=== PATIENT | male | born 1995 | race Caucasian/White ===

== ENCOUNTER 2021-05-18 12:48 | Inpatient (IN) | payer MEDICARE, MEDICAID, SELFPAY ==
--- NOTE | 2021-05-18 13:35 | ECG_ITS ---
Test Reason : Med clearance Blood Pressure : / mmHG Vent. Rate : 081 BPM Atrial Rate : 081 BPM P-R Int : 152 ms QRS Dur : 104 ms QT Int : 368 ms P-R-T Axes : 043 048 034 degrees QTc Int : 427 ms Artifact in tracing Normal sinus rhythm Otherwise normal ECG No significant changes when compared with the previous EKG of 23 september 2019 Referred By: Chacha Jo Electronically Signed By:DAMION THOMSON
[2021-05-18 13:41] VITALS: BP 122/76; PULSE 91; RESP 18; TEMP 36.8; O2SAT 99; BMI 43.2
--- NOTE | 2021-05-18 14:18 | PC.NURSE ---
mo states this is phone number [phone]. mother states client stopped taking medications used to be on sounds like long acting risperdal injectable, also mother states not eating well/right
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
[2021-05-18 18:21] LABS: Appearance Urine CLEAR; Glucose Urine UA NEG (NEG); Leukocyte Esterase Urine NEG (NEG); Nitrite Urine NEG (NEG); Specific Gravity - Urine <= 1.005 (1.005-1.025); Urine Blood NEG (NEG); Urine Ketones NEG (NEG); Urine Protein NEG (NEG-TRACE)
[2021-05-18 18:29] LABS: COVID-19 Test Negative (Negative); Color Urine YELLOW
[2021-05-18 18:47] LABS: Amphetamine Screen Urine Not Detected (Not Detect); Barbiturates, Urine Not Detected (Not Detect); Benzodiazepines Screen Urine Not Detected (Not Detect); Cannabinoid Screen Urine POSITIVE (Not Detect); Cocaine Screen Urine Not Detected (Not Detect); Fentanyl, urine Not Detected (Not Detect); Opiate Screen Urine Not Detected (Not Detect); Phencyclidine Screen Urine Not Detected (Not Detect)
[2021-05-18 18:54] LABS: MANUAL DIFF FLAG NO
[2021-05-18 19:00] LABS: Basophils Percent Auto 0.2 % (0-2); Eosinophils Percent Auto 0.2 % (0-4); Hematocrit 40.1 % (42.0-52.0); Hemoglobin 13.7 g/dl (14.0-18.0); Imm Gran Abs Auto 0.03 X10*3/uL (0.00-0.03); Imm Gran Pct Auto 0.3 % (0.0-0.4); Lymphocytes Absolute Auto 1.7 X10*3/uL (1.2-4.9); Lymphocytes Percent Auto 15.2 % (20-40); Mean Corpuscular HGB Conc 34.2 g/dl (31.0-36.0); Mean Corpuscular Hemoglobin 30.2 pg (27.0-33.0); Mean Corpuscular Volume 88.3 fL (80.0-98.0); Mean Platelet Volume 9.6 fL (9.4-12.4); Monocytes Absolute Auto 0.6 X10*3/uL (0.1-1.2); Monocytes Percent Auto 5.2 % (2-11); Neutrophils Absolute Auto 8.6 x10*3/uL (2.0-8.3); Neutrophils Percent Auto 78.9 % (45-73); Platelet Count 308 X10*3/uL (160-400); Red Blood Count 4.54 X10*6/uL (4.60-5.80); Red Cell Distribution Width 12.8 % (11.0-16.0); White Blood Count 10.9 X10*3/uL (4.8-10.8)
[2021-05-18 19:08] LABS: Ethanol < 10 mg/dL
[2021-05-18 19:12] LABS: Alanine Aminotransferase 29 U/L (0-40); Albumin Level 4.4 g/dL (3.5-5.0); Alkaline Phosphatase 66 U/L (39-117); Anion Gap 12 (12-20); Aspartate Amino Transferase 21 U/L (5-37); Bilirubin Total 0.3 mg/dL (0.0-1.0); Blood Urea Nitrogen 9 mg/dL (9-16); Calcium 9.9 mg/dL (8.4-10.2); Carbon Dioxide 26 mmol/L (22-29); Chloride 107 mmol/L (96-108); Creatinine Clr Calc Pharmacy 178.6; Estimated Glomerular Filt Rate > 60; Glucose Random 127 mg/dL (60-115); Lipase 51 U/L (8-78); Magnesium 1.8 mg/dL (1.6-2.6); Potassium 3.9 mmol/L (3.3-5.1); Sodium 141 mmol/L (135-145); Total Protein 7.7 g/dL (6.5-8.0)
[2021-05-19 00:46] VITALS: BP 126/78; PULSE 78; RESP 16; TEMP 36.9; O2SAT 99
--- NOTE | 2021-05-19 06:12 | PC.NURSE ---
Patient slept through the night, no distress observed/reported, behavior appropriate and cooperative, med rec completed/pending providers approval, patient was assessed by [facility] in the community, disposition is section 12 inpatient Bed Search, VSS, will continue to monitor.
--- NOTE | 2021-05-19 07:20 | PC.NURSE ---
pt given breakfast tray, sitting at bedside on table eating meal. no distress noted.
--- NOTE | 2021-05-19 09:13 | PC.NURSE ---
ambulatory to bathroom, cooperative and pleasant.
--- NOTE | 2021-05-19 13:13 | PC.NURSE ---
NURSE TO NURSE GIVEN FOR M3 ADMISSION
[2021-05-19 14:04] VITALS: BP 135/62; PULSE 82; RESP 16; TEMP 36.8; O2SAT 97
[2021-05-19 16:18] VITALS: BP 129/65; PULSE 80
[2021-05-19 16:23] VITALS: BP 129/65; PULSE 80
[2021-05-19] MEDS: Propranolol HCL 10 MG TABLET PO ×2 (16:23→20:07)
--- NOTE | 2021-05-19 17:19 | PC.ADMIT ---
Patient is a 26 year old male who was admitted from the POD. Patient arrived to the unit at 13:27 via a wheelchair. Patient is pleasant upon approach and cooperative with admission. Patient presented secondary to ceasing to take risperidone. Patient reports he was hearing voices telling me things. They would tell me anything from murder to doing bad things . Patient declined to elaborate further on it. Patient denies SI/HI/VH. Patient states right now I am not hearing the voices, but when they do say things to me I do not like it . Patient is alert and oriented x3, person, place, and situation. Patient reported that the year was 2017. Patient was educated on the date being May 19, 2021. Upon admission Vital signs were BP:135/62, HR:82, RR:16, o2:97%, T:98.3, and patient denies pain. Patient denies any current medical problems. Patients affect is flat and appears anxious. During admission assessments patient is observed to be lying down in bed. Patient would pull covers over his face for periods of a time after responding to a question. Patient has delay of about 45 seconds to 1 minute for responses. Patient reports not being a smoker of tobacco products, but reports daily use of marijuana. Pt reports last use of marijuana was 2 days ago before coming to the ER. Patient reports feeling safe on the unit, and verbalized an ability to seek staff if feeling like wanting to harm self. Patient denies AH at this time.
--- NOTE | 2021-05-19 18:54 | P.HPPS_ITS ---
HPI Chief Complaint: Psychosis Diagnostics Vital Signs (24Hr): Vital Signs - 24 hr 05/19/21 00:46 05/19/21 14:04 05/19/21 16:18 Temperature 98.4 F 98.3 F Pulse Rate 78 82 80 Respiratory Rate 16 16 Blood Pressure 126/78 135/62 129/65 Pulse Oximetry 99 97 05/19/21 16:23 Temperature Pulse Rate 80 Respiratory Rate Blood Pressure 129/65 Pulse Oximetry BMI result Body Mass Index 43.2 Labs Results: 05/18/21 18:51 05/18/21 18:51 Labs: Laboratory Results - last 48 hr 05/18/21 05/18/21 05/18/21 18:02 18:02 18:02 WBC RBC Hgb Hct MCV MCH MCHC RDW Plt Count MPV Immature Gran % (Auto) Neut % (Auto) Lymph % (Auto) [place] % (Auto) Eos % (Auto) Baso % (Auto) Lymph # (Auto) [place] # (Auto) Eos # (Auto) Baso # (Auto) Abs Immat Gran (auto) Absolute Neuts (auto) Absolute Nucleated RBC Nucleated RBC % (auto) Sodium Potassium Chloride Carbon Dioxide Anion Gap BUN Creatinine Estim Creat Clear Calc Estimated GFR Random Glucose Calcium Magnesium Total Bilirubin AST ALT Alkaline Phosphatase Total Protein Albumin Lipase Urine Color YELLOW Urine Appearance CLEAR Urine pH 7.0 Ur Specific [place] <= 1.005 Urine Protein NEG Urine Glucose (UA) NEG Urine Ketones NEG Urine Blood NEG Urine Nitrite NEG Ur Leukocyte Esterase NEG Urine Opiates Screen Not Detected Urine Fentanyl Screen Not Detected Ur Barbiturates Screen Not Detected Ur Phencyclidine Scrn Not Detected Ur Amphetamines Screen Not Detected U Benzodiazepines Scrn Not Detected Urine Cocaine Screen Not Detected U Marijuana (THC) Screen POSITIVE H Ethyl Alcohol COVID-19 (RUBÉN) Negative COVID-19 Clin Com See Note 05/18/21 05/18/21 05/18/21 18:51 18:51 18:51 WBC 10.9 H RBC 4.54 L Hgb 13.7 L Hct 40.1 L MCV 88.3 MCH 30.2 MCHC 34.2 RDW 12.8 Plt Count 308 MPV 9.6 Immature Gran % (Auto) 0.3 Neut % (Auto) 78.9 H Lymph % (Auto) 15.2 L Greene % (Auto) 5.2 Eos % (Auto) 0.2 Baso % (Auto) 0.2 Lymph # (Auto) 1.7 Greene # (Auto) 0.6 Eos # (Auto) 0.0 Baso # (Auto) 0.0 Abs Immat Gran (auto) 0.03 Absolute Neuts (auto) 8.6 H Absolute Nucleated RBC 0.000 Nucleated RBC % (auto) 0.0 Sodium 141 Potassium 3.9 Chloride 107 Carbon Dioxide 26 Anion Gap 12 BUN 9 Creatinine 0.84 Estim Creat Clear Calc 178.6 Estimated GFR > 60 Random Glucose 127 H Calcium 9.9 Magnesium 1.8 Total Bilirubin 0.3 AST 21 ALT 29 Alkaline Phosphatase 66 Total Protein 7.7 Albumin 4.4 Lipase 51 Urine Color Urine Appearance Urine pH Ur Specific [place] Urine Protein Urine Glucose (UA) Urine Ketones Urine Blood Urine Nitrite Ur Leukocyte Esterase Urine Opiates Screen Urine Fentanyl Screen Ur Barbiturates Screen Ur Phencyclidine Scrn Ur Amphetamines Screen U Benzodiazepines Scrn Urine Cocaine Screen U Marijuana (THC) Screen Ethyl Alcohol < 10 COVID-19 (RUBÉN) COVID-19 Clin Com Meds/Allergies Meds Home Medications Acetaminophen (Acetaminophen 325 Mg Tablet) 650 mg PO Q6H PRN PRN Reason: Headache/Pain Mild Scale (1-3) Al Hydroxide/Mg Hydroxide (Magnesium Hydrox/Alum Hydrox 30 Ml Oral.Susp) 30 ml PO Q6H PRN PRN Reason: Heartburn/Nausea Hydroxyzine HCl (Hydroxyzine Hcl 25 Mg Tablet) 25 mg PO BEDTIME PRN PRN Reason: Anxiety Magnesium Hydroxide (Milk Of Magnesia 30 Ml Oral.Susp) 30 ml PO DAILY PRN PRN Reason: Constipation Nicotine Polacrilex (Nicotine Polacrilex 2 Mg Gum) 4 mg BUCCAL Q2H PRN PRN Reason: Nicotine Cravings Propranolol HCl (Propranolol Hcl 10 Mg Tablet) 10 mg PO TID KYLE; Protocol Last Admin: 05/19/21 16:23 Dose: 10 mg Documented by: Risperidone (Risperidone 3 Mg Tablet) 3 mg PO BEDTIME KYLE Trazodone HCl (Trazodone Hcl 50 Mg Tablet) 50 mg PO BEDTIME PRN PRN Reason: Insomnia Allergies Allergies Allergy/AdvReac Type Severity Reaction Status Date / Time Penicillins [PENICILLINS] Allergy Unknown RASH Verified 05/19/21 07:39
[2021-05-19 19:48] VITALS: BP 132/68; PULSE 85; RESP 16; TEMP 36.8; O2SAT 98
[2021-05-19 20:07] VITALS: BP 132/68; PULSE 85
[2021-05-19] MEDS: risperiDONE 3 MG TABLET PO (20:07)
[2021-05-19] MEDS: traZODone HCL 50 MG TABLET PO (20:16)
[2021-05-20 08:35] VITALS: BP 128/73; PULSE 97; RESP 18; TEMP 36.8; O2SAT 97
[2021-05-20 08:38] VITALS: BP 128/73; PULSE 97
[2021-05-20] MEDS: Propranolol HCL 10 MG TABLET PO ×3 (08:38→20:35)
--- NOTE | 2021-05-20 12:33 | P.HPPS_ITS ---
HPI Date of Service: 05/20/21 Chief Complaint: Psychosis HPI Narrative: per pt, he used to take the risperdal consta shot but has not taken it in a while due patrick an adverse reaction to the injection; he describes bloody pustules having formed on his skin at various sites. he has since been prescribed PO risperidone but is not generally compliant with it. he is willing to try another WONG. he recently had a recrudescence of his symptoms of psychosis, such as thought insertion, CAH to perform inappropriate touching. he was brought to [facility] by his family members, with whom he lives. on interview with MD, pt supports the history as written above and is open to MD discussing his case with his outpt prescriber to determine next steps. Past Psychiatric History: h/o schizophrenia. multiple hospitalizations. seen at [facility]. h/o medication non-compliance. no documented h/o SA/SIB/HIB. Medical Evaluation Reviewed: Yes [facility] Family History: reportedly there is a FH of mental illness and ASHANTI. Social History: born in [place] and moved to at 6 yo. one of three kids. sibs spent some time in foster care when he was 4 yo and then reunited a few years later. mother is and remarried. pt lives with his father. single, never , no children. receives [employer] income. Substance History: daily use of cannabis. denies use of other substances. Trauma History: alluded to childhood H/O trauma, has not specified. Diagnostics Vital Signs (24Hr): Vital Signs - 24 hr 05/19/21 14:04 05/19/21 16:18 05/19/21 16:23 Temperature 98.3 F Pulse Rate 82 80 80 Respiratory Rate 16 Blood Pressure 135/62 129/65 129/65 Pulse Oximetry 97 05/19/21 19:48 05/19/21 20:07 05/20/21 08:35 Temperature 98.2 F 98.2 F Pulse Rate 85 85 97 Respiratory Rate 16 18 Blood Pressure 132/68 132/68 128/73 Pulse Oximetry 98 97 05/20/21 08:38 Temperature Pulse Rate 97 Respiratory Rate Blood Pressure 128/73 Pulse Oximetry BMI result Body Mass Index 43.2 Labs Results: 05/18/21 18:51 05/18/21 18:51 Labs: Laboratory Results - last 48 hr 05/18/21 05/18/21 05/18/21 18:02 18:02 18:02 WBC RBC Hgb Hct MCV MCH MCHC RDW Plt Count MPV Immature Gran % (Auto) Neut % (Auto) Lymph % (Auto) [place] % (Auto) Eos % (Auto) Baso % (Auto) Lymph # (Auto) [place] # (Auto) Eos # (Auto) Baso # (Auto) Abs Immat Gran (auto) Absolute Neuts (auto) Absolute Nucleated RBC Nucleated RBC % (auto) Sodium Potassium Chloride Carbon Dioxide Anion Gap BUN Creatinine Estim Creat Clear Calc Estimated GFR Random Glucose Calcium Magnesium Total Bilirubin AST ALT Alkaline Phosphatase Total Protein Albumin Lipase Urine Color YELLOW Urine Appearance CLEAR Urine pH 7.0 Ur Specific [place] <= 1.005 Urine Protein NEG Urine Glucose (UA) NEG Urine Ketones NEG Urine Blood NEG Urine Nitrite NEG Ur Leukocyte Esterase NEG Urine Opiates Screen Not Detected Urine Fentanyl Screen Not Detected Ur Barbiturates Screen Not Detected Ur Phencyclidine Scrn Not Detected Ur Amphetamines Screen Not Detected U Benzodiazepines Scrn Not Detected Urine Cocaine Screen Not Detected U Marijuana (THC) Screen POSITIVE H Ethyl Alcohol COVID-19 (RUBÉN) Negative COVID-19 Clin Com See Note 05/18/21 05/18/21 05/18/21 18:51 18:51 18:51 WBC 10.9 H RBC 4.54 L Hgb 13.7 L Hct 40.1 L MCV 88.3 MCH 30.2 MCHC 34.2 RDW 12.8 Plt Count 308 MPV 9.6 Immature Gran % (Auto) 0.3 Neut % (Auto) 78.9 H Lymph % (Auto) 15.2 L Emery % (Auto) 5.2 Eos % (Auto) 0.2 Baso % (Auto) 0.2 Lymph # (Auto) 1.7 [place]y # (Auto) 0.6 Eos # (Auto) 0.0 Baso # (Auto) 0.0 Abs Immat Gran (auto) 0.03 Absolute Neuts (auto) 8.6 H Absolute Nucleated RBC 0.000 Nucleated RBC % (auto) 0.0 Sodium 141 Potassium 3.9 Chloride 107 Carbon Dioxide 26 Anion Gap 12 BUN 9 Creatinine 0.84 Estim Creat Clear Calc 178.6 Estimated GFR > 60 Random Glucose 127 H Calcium 9.9 Magnesium 1.8 Total Bilirubin 0.3 AST 21 ALT 29 Alkaline Phosphatase 66 Total Protein 7.7 Albumin 4.4 Lipase 51 Urine Color Urine Appearance Urine pH Ur Specific [place] Urine Protein Urine Glucose (UA) Urine Ketones Urine Blood Urine Nitrite Ur Leukocyte Esterase Urine Opiates Screen Urine Fentanyl Screen Ur Barbiturates Screen Ur Phencyclidine Scrn Ur Amphetamines Screen U Benzodiazepines Scrn Urine Cocaine Screen U Marijuana (THC) Screen Ethyl Alcohol < 10 COVID-19 (RUBÉN) COVID-19 Clin Com Meds/Allergies Meds Home Medications Acetaminophen (Acetaminophen 325 Mg Tablet) 650 mg PO Q6H PRN PRN Reason: Headache/Pain Mild Scale (1-3) Al Hydroxide/Mg Hydroxide (Magnesium Hydrox/Alum Hydrox 30 Ml Oral.Susp) 30 ml PO Q6H PRN PRN Reason: Heartburn/Nausea Hydroxyzine HCl (Hydroxyzine Hcl 25 Mg Tablet) 25 mg PO BEDTIME PRN PRN Reason: Anxiety Magnesium Hydroxide (Milk Of Magnesia 30 Ml Oral.Susp) 30 ml PO DAILY PRN PRN Reason: Constipation Nicotine Polacrilex (Nicotine Polacrilex 2 Mg Gum) 4 mg BUCCAL Q2H PRN PRN Reason: Nicotine Cravings Propranolol HCl (Propranolol Hcl 10 Mg Tablet) 10 mg PO TID KYLE; Protocol Last Admin: 05/20/21 08:38 Dose: 10 mg Documented by: Risperidone (Risperidone 3 Mg Tablet) 3 mg PO BEDTIME KYLE Last Admin: 05/19/21 20:07 Dose: 3 mg Documented by: Trazodone HCl (Trazodone Hcl 50 Mg Tablet) 50 mg PO BEDTIME PRN PRN Reason: Insomnia Last Admin: 05/19/21 20:16 Dose: 50 mg Documented by: Allergies Allergies Allergy/AdvReac Type Severity Reaction Status Date / Time Penicillins [PENICILLINS] Allergy Unknown RASH Verified 05/19/21 07:39 Mental Status Exam Mental Status Exam Narrative: pt found resting in bed, easily rousable. appropriately dressed and groomed in street clothes. no PMA/PMR. cooperative. speech soft and decreased in amount. nml rate, constricted prosody. thoughts linear and logical. affect blunted. mood good. denies SI/HI/AVH. Assessment & Plan Assessment & Plan (1) Schizophrenia: Status: Acute Code(s): F20.9 - Schizophrenia, unspecified Assessment and Plan: continue PO risperidone for now. collateral from [facility] prescriber, determine new WONG and initiate. discharge to home once stabilized. Reason for continued inpatient stay Substantial Risk for: harm to others, inability to function and rapid decompensation
[2021-05-20 15:42] VITALS: BP 138/68; PULSE 84
[2021-05-20 20:35] VITALS: BP 121/74; PULSE 92; RESP 18; TEMP 36.4; O2SAT 99
[2021-05-20] MEDS: traZODone HCL 50 MG TABLET PO ×2 (20:35→23:06)
[2021-05-20] MEDS: risperiDONE 3 MG TABLET PO (20:35)
[2021-05-20] MEDS: hydrOXYzine HCL 25 MG TABLET PO (23:06)
[2021-05-21 06:00] VITALS: BP 118/57; PULSE 104; RESP 16; TEMP 37.1; O2SAT 97
[2021-05-21 09:59] VITALS: BP 118/57; PULSE 104
[2021-05-21] MEDS: Propranolol HCL 10 MG TABLET PO ×2 (09:59→14:35)
[2021-05-21 14:35] VITALS: BP 111/55; PULSE 81
--- NOTE | 2021-05-21 14:49 | HO.PSYCHPN ---
Subjective Subjective Date of Service: 05/21/21 Reason For Visit: Psychosis Interim History: pt resting in bed, easily rousable. denies any changes from yesterday. MD reports no new information, awaiting return call from prescriber. per staff, not attending groups, eating well. anx/dep 5/10. sleeping well. Mental Status Exam Mental Status Exam Narrative: pt found resting in bed, easily rousable. appropriately dressed and groomed in street clothes. no PMA/PMR. cooperative. speech soft and decreased in amount. nml rate, constricted prosody. thoughts linear and logical. affect blunted. mood euthymic, denies SI/HI/AVH. Diagnostics Vital Signs (24Hr): Vital Signs - 24 hr 05/20/21 15:42 05/20/21 20:35 05/21/21 06:00 Temperature 97.6 F 98.7 F Pulse Rate 84 92 104 H Respiratory Rate 18 16 Blood Pressure 138/68 121/74 118/57 L Pulse Oximetry 99 97 05/21/21 09:59 05/21/21 14:35 Temperature Pulse Rate 104 H 81 Respiratory Rate Blood Pressure 118/57 L 111/55 L Pulse Oximetry BMI result Body Mass Index 43.2 Labs Results: 05/18/21 18:51 05/18/21 18:51 Medications Medications Current Medications Acetaminophen (Acetaminophen 325 Mg Tablet) 650 mg PO Q6H PRN PRN Reason: Headache/Pain Mild Scale (1-3) Al Hydroxide/Mg Hydroxide (Magnesium Hydrox/Alum Hydrox 30 Ml Oral.Susp) 30 ml PO Q6H PRN PRN Reason: Heartburn/Nausea Hydroxyzine HCl (Hydroxyzine Hcl 25 Mg Tablet) 25 mg PO BEDTIME PRN PRN Reason: Anxiety Last Admin: 05/20/21 23:06 Dose: 25 mg Documented by: Magnesium Hydroxide (Milk Of Magnesia 30 Ml Oral.Susp) 30 ml PO DAILY PRN PRN Reason: Constipation Nicotine Polacrilex (Nicotine Polacrilex 2 Mg Gum) 4 mg BUCCAL Q2H PRN PRN Reason: Nicotine Cravings Propranolol HCl (Propranolol Hcl 10 Mg Tablet) 10 mg PO TID KYLE; Protocol Last Admin: 05/21/21 14:35 Dose: 10 mg Documented by: Risperidone (Risperidone 3 Mg Tablet) 3 mg PO BEDTIME KYLE Last Admin: 05/20/21 20:35 Dose: 3 mg Documented by: Trazodone HCl (Trazodone Hcl 50 Mg Tablet) 50 mg PO BEDTIME PRN PRN Reason: Insomnia Last Admin: 05/20/21 23:06 Dose: 50 mg Documented by: Allergies Allergies Allergy/AdvReac Type Severity Reaction Status Date / Time Penicillins [PENICILLINS] Allergy Unknown RASH Verified 05/19/21 07:39 Assessment & Plan Assessment & Plan (1) Schizophrenia: Status: Acute Code(s): F20.9 - Schizophrenia, unspecified Assessment and Plan: continue PO risperidone for now. collateral from [facility] prescriber, determine new WONG and initiate. calls placed to [facility] prescriber, awaiting call back. discharge to home once stabilized. I spent minutes with the patient and/or on the patient floor today, greater than?50% of which was spent counseling/coordinating care. Reason for contiued inpatient stay Substantial Risk for: harm to others
[2021-05-21 21:33] VITALS: BP 114/53; PULSE 82
[2021-05-21 21:35] VITALS: BP 114/53; PULSE 82; RESP 16; TEMP 37.1; O2SAT 96
[2021-05-21] MEDS: risperiDONE 3 MG TABLET PO (21:39)
[2021-05-21] MEDS: traZODone HCL 50 MG TABLET PO (21:39)
[2021-05-22 09:07] VITALS: BP 141/77; PULSE 118; RESP 17; TEMP 36.7; O2SAT 97
[2021-05-22 09:09] VITALS: BP 141/77; PULSE 118
[2021-05-22] MEDS: Propranolol HCL 10 MG TABLET PO ×3 (09:09→21:13)
--- NOTE | 2021-05-22 12:44 | HO.PSYCHPN ---
Subjective Subjective Date of Service: 05/22/21 Reason For Visit: Psychosis Interim History: pt seen in his room, found resting in bed. appeared to have been awake. reports that AH come and go daily. 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 will DC risperidone 3 mg at bedtime and start paliperidone 6 mg tonight. no other complaints or requests. per staff, spent most of yesterday in bed. denied AH early in day but then endorsed to staff later in day. pleasant. Mental Status Exam Mental Status Exam Narrative: pt found resting in bed, easily rousable. appropriately dressed and groomed in street clothes. no PMA/PMR. cooperative. speech soft and decreased in amount. nml rate, constricted prosody. thoughts linear and logical. affect blunted. mood euthymic, endorses daily AH. Diagnostics Vital Signs (24Hr): Vital Signs - 24 hr 05/21/21 14:35 05/21/21 21:33 05/21/21 21:35 Temperature 98.8 F Pulse Rate 81 82 82 Respiratory Rate 16 Blood Pressure 111/55 L 114/53 L 114/53 L Pulse Oximetry 96 05/22/21 09:07 05/22/21 09:09 Temperature 98.0 F Pulse Rate 118 H 118 H Respiratory Rate 17 Blood Pressure 141/77 H 141/77 H Pulse Oximetry 97 BMI result Body Mass Index 43.2 Labs Results: 05/18/21 18:51 05/18/21 18:51 Medications Medications Current Medications Acetaminophen (Acetaminophen 325 Mg Tablet) 650 mg PO Q6H PRN PRN Reason: Headache/Pain Mild Scale (1-3) Al Hydroxide/Mg Hydroxide (Magnesium Hydrox/Alum Hydrox 30 Ml Oral.Susp) 30 ml PO Q6H PRN PRN Reason: Heartburn/Nausea Hydroxyzine HCl (Hydroxyzine Hcl 25 Mg Tablet) 25 mg PO BEDTIME PRN PRN Reason: Anxiety Last Admin: 05/20/21 23:06 Dose: 25 mg Documented by: Magnesium Hydroxide (Milk Of Magnesia 30 Ml Oral.Susp) 30 ml PO DAILY PRN PRN Reason: Constipation Nicotine Polacrilex (Nicotine Polacrilex 2 Mg Gum) 4 mg BUCCAL Q2H PRN PRN Reason: Nicotine Cravings Propranolol HCl (Propranolol Hcl 10 Mg Tablet) 10 mg PO TID KYLE; Protocol Last Admin: 05/22/21 09:09 Dose: 10 mg Documented by: Risperidone (Risperidone 3 Mg Tablet) 3 mg PO BEDTIME KYLE Last Admin: 05/21/21 21:39 Dose: 3 mg Documented by: Trazodone HCl (Trazodone Hcl 50 Mg Tablet) 50 mg PO BEDTIME PRN PRN Reason: Insomnia Last Admin: 05/21/21 21:39 Dose: 50 mg Documented by: Allergies Allergies Allergy/AdvReac Type Severity Reaction Status Date / Time Penicillins [PENICILLINS] Allergy Unknown RASH Verified 05/19/21 07:39 Assessment & Plan Assessment & Plan (1) Schizophrenia: Status: Acute Code(s): F20.9 - Schizophrenia, unspecified Assessment and Plan: DCed PO risperidone 05/22, started invega 6 mg at HS same day. plan to start WONG 05/26. still trying to obtain collateral from [facility] prescriber, determine new WONG and initiate. calls placed to [facility] prescriber, awaiting call back. discharge to home once stabilized. I spent minutes with the patient and/or on the patient floor today, greater than?50% of which was spent counseling/coordinating care. Reason for contiued inpatient stay Substantial Risk for: harm to others and rapid decompensation
[2021-05-22 15:51] VITALS: BP 129/72; PULSE 107
[2021-05-22 18:00] VITALS: BP 130/71; PULSE 84; RESP 14; TEMP 36.3; O2SAT 98
[2021-05-22 21:13] VITALS: BP 130/71; PULSE 84
[2021-05-22] MEDS: Paliperidone ER 6 MG TAB.ER.24 PO (21:13)
[2021-05-23] MEDS: traZODone HCL 50 MG TABLET PO (00:53)
--- NOTE | 2021-05-23 09:00 | P.PNPSI_ITS ---
Subjective Subjective Date of Service: 05/23/21 Reason For Visit: Psychosis Subjective Notes: Conditional Voluntary Interim History: Patient was seen and discussed in rounds today. He continues to be somewhat isolative, guarded. He did get started on Invega with the hope of switching him to a long-acting injectable. He denies any side effects. Eating and sleeping adequately. No SI/HI. Intermittent auditory hallucinations. No complaints. No changes were made today and the current regimen is maintained Medication Compliance: Yes Side effects from medications: No Review of Systems Review of Systems Constitutional : No Fever, No Chills ENT/Mouth : No Ear Pain, No Nasal Congestion, No sore throat Eyes: No Eye Pain, No Swelling, No Redness Cardiovascular : No Chest Pain, No SOB Respiratory : No Cough, No Sputum, No Dyspnea Gastrointestinal : No ingestions, No Nausea, No Vomiting, No Diarrhea, No Hematochezia, No Melena Genitourinary : No Dysuria, No Urinary Frequency, No Hematuria Musculoskeletal : No Myalgias Skin : No Skin Lesions, No rash Neuro : No Weakness, No Numbness, No Paresthesias, No Dizziness, No Headache Psych : + Anxiety, + Depression, + delusions with intrusive thoughts, No SI, No thoughts of self injury, No HI, No AVH, Heme/Lymph: No Lymphadenopathy Endocrine : No Polyuria, No Polydipsia Yes all other systems are reviewed and are negative Diagnostics Vital Signs (24Hr): Vital Signs - 24 hr 05/22/21 09:07 05/22/21 09:09 05/22/21 15:51 Temperature 98.0 F Pulse Rate 118 H 118 H 107 H Respiratory Rate 17 Blood Pressure 141/77 H 141/77 H 129/72 Pulse Oximetry 97 05/22/21 18:00 05/22/21 21:13 Temperature 97.4 F Pulse Rate 84 84 Respiratory Rate 14 Blood Pressure 130/71 130/71 Pulse Oximetry 98 BMI result Body Mass Index 43.2 Labs Results: 05/18/21 18:51 05/18/21 18:51 Medications Medications Current Medications Acetaminophen (Acetaminophen 325 Mg Tablet) 650 mg PO Q6H PRN PRN Reason: Headache/Pain Mild Scale (1-3) Al Hydroxide/Mg Hydroxide (Magnesium Hydrox/Alum Hydrox 30 Ml Oral.Susp) 30 ml PO Q6H PRN PRN Reason: Heartburn/Nausea Hydroxyzine HCl (Hydroxyzine Hcl 25 Mg Tablet) 25 mg PO BEDTIME PRN PRN Reason: Anxiety Last Admin: 05/20/21 23:06 Dose: 25 mg Documented by: Magnesium Hydroxide (Milk Of Magnesia 30 Ml Oral.Susp) 30 ml PO DAILY PRN PRN Reason: Constipation Nicotine Polacrilex (Nicotine Polacrilex 2 Mg Gum) 4 mg BUCCAL Q2H PRN PRN Reason: Nicotine Cravings Paliperidone (Paliperidone Er 6 Mg Tab.Er.24) 6 mg PO BEDTIME KYLE Last Admin: 05/22/21 21:13 Dose: 6 mg Documented by: Propranolol HCl (Propranolol Hcl 10 Mg Tablet) 10 mg PO TID KYLE; Protocol Last Admin: 05/22/21 21:13 Dose: 10 mg Documented by: Trazodone HCl (Trazodone Hcl 50 Mg Tablet) 50 mg PO BEDTIME PRN PRN Reason: Insomnia Last Admin: 05/23/21 00:53 Dose: 50 mg Documented by: Allergies Allergies Allergy/AdvReac Type Severity Reaction Status Date / Time Penicillins [PENICILLINS] Allergy Unknown RASH Verified 05/19/21 07:39 Assessment & Plan Assessment & Plan (1) Schizophrenia: Status: Acute Code(s): F20.9 - Schizophrenia, unspecified Assessment and Plan: DCed PO risperidone 05/22, started invega 6 mg at HS same day. plan to start WONG 05/26. still trying to obtain collateral from [facility] prescriber, determine new WONG and ini tiate. calls placed to [facility] prescriber, awaiting call back. discharge to home once stabilized. 05/23: Continue current regimen and plans I spent minutes with the patient and/or on the patient floor today, greater than?50% of which was spent counseling/coordinating care. Reason for contiued inpatient stay Substantial Risk for: other
[2021-05-23 09:55] VITALS: BP 142/81; PULSE 81; RESP 18; TEMP 36.6; O2SAT 98
[2021-05-23 09:56] VITALS: BP 142/81; PULSE 86
[2021-05-23] MEDS: Propranolol HCL 10 MG TABLET PO ×3 (09:56→20:27)
[2021-05-23 16:46] VITALS: BP 133/76; PULSE 88
[2021-05-23 18:00] VITALS: BP 128/74; PULSE 104; TEMP 36.7; O2SAT 97
[2021-05-23 20:27] VITALS: BP 128/74; PULSE 104
[2021-05-23] MEDS: Paliperidone ER 6 MG TAB.ER.24 PO (20:27)
[2021-05-24 08:00] VITALS: BP 126/59; PULSE 80; TEMP 36.7; O2SAT 97
--- NOTE | 2021-05-24 08:32 | HO.PSYCHPN ---
Subjective Subjective Date of Service: 05/24/21 Reason For Visit: Psychosis Subjective Notes: Conditional Voluntary Interim History: Patient was seen and discussed in rounds today. Records were reviewed. He continues to be mostly isolative and in bed a lot. He states that the auditory hallucinations are still present but lessened and less intense. Eating and sleeping adequately. No SI/HI. No complaints or side effects. No changes were made today Review of Systems Review of Systems Constitutional : No Fever, No Chills ENT/Mouth : No Ear Pain, No Nasal Congestion, No sore throat Eyes: No Eye Pain, No Swelling, No Redness Cardiovascular : No Chest Pain, No SOB Respiratory : No Cough, No Sputum, No Dyspnea Gastrointestinal : No ingestions, No Nausea, No Vomiting, No Diarrhea, No Hematochezia, No Melena Genitourinary : No Dysuria, No Urinary Frequency, No Hematuria Musculoskeletal : No Myalgias Skin : No Skin Lesions, No rash Neuro : No Weakness, No Numbness, No Paresthesias, No Dizziness, No Headache Psych : + Anxiety, + Depression, + delusions with intrusive thoughts, No SI, No thoughts of self injury, No HI, No AVH, Heme/Lymph: No Lymphadenopathy Endocrine : No Polyuria, No Polydipsia Yes all other systems are reviewed and are negative Mental Status Exam Mental Status Exam Narrative: In today's visit he is alert, oriented and pleasant. Normal speech/soft-spoken. Moderate eye contact. Affect is constricted. No SI/HI. Continues to have some auditory hallucinations which were less intensive. Cognitively he is grossly intact. Judgment is grossly intact Diagnostics Vital Signs (24Hr): Vital Signs - 24 hr 05/23/21 09:55 05/23/21 09:56 05/23/21 16:46 Temperature 97.9 F Pulse Rate 81 86 88 Respiratory Rate 18 Blood Pressure 142/81 H 142/81 H 133/76 Pulse Oximetry 98 05/23/21 18:00 05/23/21 20:27 Temperature 98.0 F Pulse Rate 104 H 104 H Respiratory Rate Blood Pressure 128/74 128/74 Pulse Oximetry 97 BMI result Body Mass Index 43.2 Labs Results: 05/18/21 18:51 05/18/21 18:51 Medications Medications Current Medications Acetaminophen (Acetaminophen 325 Mg Tablet) 650 mg PO Q6H PRN PRN Reason: Headache/Pain Mild Scale (1-3) Al Hydroxide/Mg Hydroxide (Magnesium Hydrox/Alum Hydrox 30 Ml Oral.Susp) 30 ml PO Q6H PRN PRN Reason: Heartburn/Nausea Hydroxyzine HCl (Hydroxyzine Hcl 25 Mg Tablet) 25 mg PO BEDTIME PRN PRN Reason: Anxiety Last Admin: 05/20/21 23:06 Dose: 25 mg Documented by: Magnesium Hydroxide (Milk Of Magnesia 30 Ml Oral.Susp) 30 ml PO DAILY PRN PRN Reason: Constipation Nicotine Polacrilex (Nicotine Polacrilex 2 Mg Gum) 4 mg BUCCAL Q2H PRN PRN Reason: Nicotine Cravings Paliperidone (Paliperidone Er 6 Mg Tab.Er.24) 6 mg PO BEDTIME KYLE Last Admin: 05/23/21 20:27 Dose: 6 mg Documented by: Propranolol HCl (Propranolol Hcl 10 Mg Tablet) 10 mg PO TID KYLE; Protocol Last Admin: 05/23/21 20:27 Dose: 10 mg Documented by: Trazodone HCl (Trazodone Hcl 50 Mg Tablet) 50 mg PO BEDTIME PRN PRN Reason: Insomnia Last Admin: 05/23/21 00:53 Dose: 50 mg Documented by: Allergies Allergies Allergy/AdvReac Type Severity Reaction Status Date / Time Penicillins [PENICILLINS] Allergy Unknown RASH Verified 05/19/21 07:39 Assessment & Plan Assessment & Plan (1) Schizophrenia: Status: Acute Code(s): F20.9 - Schizophrenia, unspecified Assessment and Plan: DCed PO risperidone 05/22, started invega 6 mg at HS same day. plan to start WONG 05/26. still trying to obtain collateral from [facility] prescriber, determine new WONG and initiate. calls placed to [facility] prescriber, awaiting call back. discharge to home once stabilized. 05/23: Continue current regimen and plans 05/24: Continue current regimen with no change I spent minutes with the patient and/or on the patient floor today, greater than?50% of which was spent counseling/coordinating care. Reason for contiued inpatient stay Substantial Risk for: other
[2021-05-24 08:51] VITALS: BP 120/59; PULSE 80
[2021-05-24] MEDS: Propranolol HCL 10 MG TABLET PO ×3 (08:51→20:01)
[2021-05-24 15:33] VITALS: BP 135/75; PULSE 92
[2021-05-24 19:50] VITALS: BP 138/78; PULSE 92; RESP 18; TEMP 36.4; O2SAT 96
[2021-05-24 20:01] VITALS: BP 138/78; PULSE 92
[2021-05-24] MEDS: Paliperidone ER 6 MG TAB.ER.24 PO (20:01)
[2021-05-24] MEDS: traZODone HCL 50 MG TABLET PO (20:09)
[2021-05-25] MEDS: hydrOXYzine HCL 25 MG TABLET PO ×2 (02:55→13:26)
[2021-05-25 09:15] VITALS: BP 130/76; PULSE 93; RESP 17; TEMP 36.8; O2SAT 98
[2021-05-25 09:16] VITALS: BP 130/76; PULSE 93
[2021-05-25] MEDS: Propranolol HCL 10 MG TABLET PO ×2 (09:16→21:13)
--- NOTE | 2021-05-25 10:05 | P.PNPSI_ITS ---
Subjective Subjective Date of Service: 05/25/21 Reason For Visit: Psychosis Subjective Notes: Conditional Voluntary Interim History: Patient was seen in rounds today and discussed. Records were reviewed. He continues to be very isolative and in his room a lot and having trouble sleeping at night secondary to this. I talked to him about needing to come out. He stated that he is uncomfortable around people and I suggested maybe just walking in the hallways which are very secluded most of the time. He is using his PRNs with not too much benefit probably because he is in bed a lot during the day. No SI. No changes were made today Review of Systems Review of Systems Yes all other systems are reviewed and are negative Mental Status Exam Mental Status Exam Narrative: In today's visit he is alert, oriented and pleasant. Normal speech/soft-spoken. Moderate eye contact. Affect is constricted. No SI/HI. Continues to have some auditory hallucinations which were less intensive. Cognitively he is grossly intact. Judgment is grossly intact Diagnostics Vital Signs (24Hr): Vital Signs - 24 hr 05/24/21 15:33 05/24/21 19:50 05/24/21 20:01 Temperature 97.6 F Pulse Rate 92 92 92 Respiratory Rate 18 Blood Pressure 135/75 138/78 138/78 Pulse Oximetry 96 05/25/21 09:15 05/25/21 09:16 Temperature 98.3 F Pulse Rate 93 93 Respiratory Rate 17 Blood Pressure 130/76 130/76 Pulse Oximetry 98 BMI result Body Mass Index 43.2 Labs Results: 05/18/21 18:51 05/18/21 18:51 Medications Medications Current Medications Acetaminophen (Acetaminophen 325 Mg Tablet) 650 mg PO Q6H PRN PRN Reason: Headache/Pain Mild Scale (1-3) Al Hydroxide/Mg Hydroxide (Magnesium Hydrox/Alum Hydrox 30 Ml Oral.Susp) 30 ml PO Q6H PRN PRN Reason: Heartburn/Nausea Hydroxyzine HCl (Hydroxyzine Hcl 25 Mg Tablet) 25 mg PO BEDTIME PRN PRN Reason: Anxiety Last Admin: 05/25/21 02:55 Dose: 25 mg Documented by: Magnesium Hydroxide (Milk Of Magnesia 30 Ml Oral.Susp) 30 ml PO DAILY PRN PRN Reason: Constipation Nicotine Polacrilex (Nicotine Polacrilex 2 Mg Gum) 4 mg BUCCAL Q2H PRN PRN Reason: Nicotine Cravings Paliperidone (Paliperidone Er 6 Mg Tab.Er.24) 6 mg PO BEDTIME KYLE Last Admin: 05/24/21 20:01 Dose: 6 mg Documented by: Propranolol HCl (Propranolol Hcl 10 Mg Tablet) 10 mg PO TID KYLE; Protocol Last Admin: 05/25/21 09:16 Dose: 10 mg Documented by: Trazodone HCl (Trazodone Hcl 50 Mg Tablet) 50 mg PO BEDTIME PRN PRN Reason: Insomnia Last Admin: 05/24/21 20:09 Dose: 50 mg Documented by: Allergies Allergies Allergy/AdvReac Type Severity Reaction Status Date / Time Penicillins [PENICILLINS] Allergy Unknown RASH Verified 05/19/21 07:39 Assessment & Plan Assessment & Plan (1) Schizophrenia: Status: Acute Code(s): F20.9 - Schizophrenia, unspecified Assessment and Plan: DCed PO risperidone 05/22, started invega 6 mg at HS same day. plan to start LA I 05/26. still trying to obtain collateral from [facility] prescriber, determine new WONG and initiate. calls placed to [facility] prescriber, awaiting call back. discharge to home once stabilized. 05/23: Continue current regimen and plans 05/24: Continue current regimen with no change 05/25: Continue current plans. Encouraged to come out of his room during the day I spent minutes with the patient and/or on the patient floor today, greater than?50% of which was spent counseling/coordinating care. Reason for contiued inpatient stay Substantial Risk for: other
[2021-05-25] MEDS: LORazepam 1 MG TABLET PO (15:55)
[2021-05-25] MEDS: Benztropine Mesylate 1 MG TABLET PO ×2 (15:55→21:13)
[2021-05-25 18:00] VITALS: BP 128/67; PULSE 136; RESP 18; TEMP 36.7; O2SAT 96
[2021-05-25] MEDS: LORazepam 0.5 MG TABLET PO (21:13)
[2021-05-25] MEDS: Paliperidone ER 6 MG TAB.ER.24 PO (21:13)
[2021-05-25] MEDS: traZODone HCL 50 MG TABLET PO (21:13)
[2021-05-26 08:15] VITALS: BP 136/75; PULSE 116; RESP 18; TEMP 36.8; O2SAT 97
[2021-05-26 08:18] VITALS: BP 136/75; PULSE 116
[2021-05-26] MEDS: Propranolol HCL 10 MG TABLET PO ×3 (08:18→22:12)
[2021-05-26] MEDS: Benztropine Mesylate 1 MG TABLET PO (08:18)
[2021-05-26 14:44] VITALS: BP 128/69; PULSE 91
--- NOTE | 2021-05-26 15:20 | HO.PSYCHPN ---
Subjective Subjective Date of Service: 05/26/21 Reason For Visit: Psychosis Interim History: pt found seated in common area reading a book. calm and cooperative. describes long-standing akathisia, which he believes is my ADHD. after some discussion about antipsychotics available as WONG and the apparent need to try one of lower potency than risperidone or paliperidone, pt decides to try zyprexa, which he has been on in the past. abilify was the other tenable option. haldol and fluphenazine were judged too potent. pt will DC paliperidone tonight and start zyprexa. per staff, pt had a difficult day yesterday. dep/anx recently. lots of pacing. said he wanted to leave, then banging on exit doors. secutroy came up and he asked them to kill him. ativan and cogentin were ultimately helpful and pt was subsequently scheduled cogentin 1 mg TID. Q5 min checks now. Mental Status Exam Mental Status Exam Narrative: pt found sitting in milieu reading a book. appropriately dressed and groomed in street clothes. no PMA/PMR. cooperative. speech soft and normal in amount. nml rate, constricted prosody. thoughts linear and logical. affect blunted. mood euthymic, endorses AH sometimes. Diagnostics Vital Signs (24Hr): Vital Signs - 24 hr 05/25/21 18:00 05/26/21 08:15 05/26/21 08:18 Temperature 98.1 F 98.2 F Pulse Rate 136 H 116 H 116 H Respiratory Rate 18 18 Blood Pressure 128/67 136/75 136/75 Pulse Oximetry 96 97 05/26/21 14:44 Temperature Pulse Rate 91 Respiratory Rate Blood Pressure 128/69 Pulse Oximetry BMI result Body Mass Index 43.2 Labs Results: 05/18/21 18:51 05/18/21 18:51 Medications Medications Current Medications Acetaminophen (Acetaminophen 325 Mg Tablet) 650 mg PO Q6H PRN PRN Reason: Headache/Pain Mild Scale (1-3) Al Hydroxide/Mg Hydroxide (Magnesium Hydrox/Alum Hydrox 30 Ml Oral.Susp) 30 ml PO Q6H PRN PRN Reason: Heartburn/Nausea Hydroxyzine HCl (Hydroxyzine Hcl 25 Mg Tablet) 25 mg PO Q6H PRN PRN Reason: Anxiety Last Admin: 05/25/21 13:26 Dose: 25 mg Documented by: Lorazepam (Lorazepam 0.5 Mg Tablet) 0.5 mg PO Q6H PRN PRN Reason: Anxiety Last Admin: 05/25/21 21:13 Dose: 0.5 mg Documented by: Magnesium Hydroxide (Milk Of Magnesia 30 Ml Oral.Susp) 30 ml PO DAILY PRN PRN Reason: Constipation Nicotine Polacrilex (Nicotine Polacrilex 2 Mg Gum) 4 mg BUCCAL Q2H PRN PRN Reason: Nicotine Cravings Olanzapine (Olanzapine 10 Mg Tablet) 10 mg PO BEDTIME KYLE Propranolol HCl (Propranolol Hcl 10 Mg Tablet) 10 mg PO TID KYLE; Protocol Last Admin: 05/26/21 14:44 Dose: 10 mg Documented by: Trazodone HCl (Trazodone Hcl 50 Mg Tablet) 50 mg PO BEDTIME PRN PRN Reason: Insomnia Last Admin: 05/25/21 21:13 Dose: 50 mg Documented by: Allergies Allergies Allergy/AdvReac Type Severity Reaction Status Date / Time Penicillins [PENICILLINS] Allergy Unknown RASH Verified 05/19/21 07:39 Assessment & Plan Assessment & Plan (1) Schizophrenia: Status: Acute Code(s): F20.9 - Schizophrenia, unspecified Assessment and Plan: DCed PO risperidone 05/22, started invega 6 mg at HS same day. planned to start WONG 05/26. calls placed to [facility] prescriber, awaiting call back. appeared to suffer from akathisia 05/25 and was started on cogentin 1 TID. describes akathisia with risperidone as well. agrees to switch to zyprexa 10 mg as of 05/26; relprevv later if pt tolerates PO zyprexa. cogentin DCed 05/26. discharge to home once stabilized. I spent minutes with the patient and/or on the patient floor today, greater than?50% of which was spent counseling/coordinating care. Reason for contiued inpatient stay Substantial Risk for: harm to self, harm to others, inability to function and rapid decompensation
[2021-05-26 20:04] VITALS: BP 135/73; PULSE 96; RESP 20; TEMP 36.3; O2SAT 96
[2021-05-26 22:12] VITALS: BP 120/72; PULSE 95
[2021-05-26] MEDS: OLANZapine 10 MG TABLET PO (22:12)
[2021-05-26] MEDS: traZODone HCL 50 MG TABLET PO (23:13)
[2021-05-27 06:00] VITALS: BP 137/73; PULSE 99; RESP 16; TEMP 36.7; O2SAT 97
[2021-05-27 08:36] VITALS: BP 137/73; PULSE 99
[2021-05-27] MEDS: Propranolol HCL 10 MG TABLET PO ×3 (08:36→20:44)
--- NOTE | 2021-05-27 15:32 | HO.PSYCHPN ---
Subjective Subjective Date of Service: 05/27/21 Reason For Visit: Psychosis Interim History: Patient seen and discussed with team. Reportedly pt had incident over weekend of yelling, banging on door of unit. Patient evaluated this morning and upon interview pt reports he is feeling better from the weekend. Tolerating zyprexa 10 mg QHS. Says sleep and appetite are good. Thinks AH are getting better, but says the voices are always there. Feels safe at the hospital. Pt continues to perseverate on feeling scared of hurting somebody or myself and says he feels like I should locked in a room or put to sleep, as he worries that he will harm others and I dont wanna do anything crazy. It appears thoughts of harming self or others is egodystonic and are distressing for pt, denies wanting to harm self or others. Denies SIB or assaultive behaviors. Pt reports he took Haldol once but it was discontinued due to possible dystonic reaction, my neck was turning, something was hurting me. Denies command hallucinations. In the milieu, patient is withdrawn but has been appropriate in behavior. Denies SI/SIB/HI upon inquiry. Denies irritability. Says he feels safe. Medication Compliance: Yes Side effects from medications: No Attending Groups: No Review of Systems Acute medical concerns: No Medical Review of Systems: unchanged Review of Systems Review of Systems CVS: No c/o chest pain, palpitations, no SOB QUALITY CONTROL MANAGER: No c/o dizziness, headache GI: No c/o Nausea, Vomiting, diarrhea, constipation or heartburn Mental Status Exam Mental Status Exam Narrative: A&O. Found lying down in mattress that he pulled to the floor in his room, in hospital attire, overweight, not malodorous. Intermitten eye contact, somewhat attentive. No Tics or Tremors. No abnormal involuntary movements. Calm, withdrawn but answers questions. Non-pressured speech, non-spontaneous with regular rate and rhythm, normal volume and prosody. No prolonged speech latency or dysarthria. Mood is ?scared,? affect is anxious, appears internally preoccupied. Denies SI/SIB/HI upon inquiry. Endorses AH, denies VH. Appears paranoid. Thoughts are ruminative on his safety. No known cognitive or memory impairment. Insight/ Judgment impaired. Diagnostics Vital Signs (24Hr): Vital Signs - 24 hr 05/26/21 20:04 05/26/21 22:12 05/27/21 06:00 Temperature 97.3 F 98.0 F Pulse Rate 96 95 99 Respiratory Rate 20 16 Blood Pressure 135/73 120/72 137/73 Pulse Oximetry 96 97 05/27/21 08:36 Temperature Pulse Rate 99 Respiratory Rate Blood Pressure 137/73 Pulse Oximetry BMI result Body Mass Index 43.2 Labs Results: 05/18/21 18:51 05/18/21 18:51 Medications Medications Current Medications Acetaminophen (Acetaminophen 325 Mg Tablet) 650 mg PO Q6H PRN PRN Reason: Headache/Pain Mild Scale (1-3) Al Hydroxide/Mg Hydroxide (Magnesium Hydrox/Alum Hydrox 30 Ml Oral.Susp) 30 ml PO Q6H PRN PRN Reason: Heartburn/Nausea Hydroxyzine HCl (Hydroxyzine Hcl 25 Mg Tablet) 25 mg PO Q6H PRN PRN Reason: Anxiety Last Admin: 05/25/21 13:26 Dose: 25 mg Documented by: Lorazepam (Lorazepam 0.5 Mg Tablet) 0.5 mg PO Q6H PRN PRN Reason: Anxiety Last Admin: 05/25/21 21:13 Dose: 0.5 mg Documented by: Magnesium Hydroxide (Milk Of Magnesia 30 Ml Oral.Susp) 30 ml PO DAILY PRN PRN Reason: Constipation Nicotine Polacrilex (Nicotine Polacrilex 2 Mg Gum) 4 mg BUCCAL Q2H PRN PRN Reason: Nicotine Cravings Olanzapine (Olanzapine 10 Mg Tablet) 10 mg PO BEDTIME KYLE Last Admin: 05/26/21 22:12 Dose: 10 mg Documented by: Propranolol HCl (Propranolol Hcl 10 Mg Tablet) 10 mg PO TID KYLE; Protocol Last Admin: 05/27/21 08:36 Dose: 10 mg Documented by: Trazodone HCl (Trazodone Hcl 50 Mg Tablet) 50 mg PO BEDTIME PRN PRN Reason: Insomnia Last Admin: 05/26/21 23:13 Dose: 50 mg Documented by: Allergies Allergies Allergy/AdvReac Type Severity Reaction Status Date / Time Penicillins [PENICILLINS] Allergy Unknown RASH Verified 05/19/21 07:39 Assessment & Plan Assessment & Plan (1) Schizophrenia: Status: Acute Code(s): F20.9 - Schizophrenia, unspecified Assessment and Plan: DCed PO risperidone 12/23, started invega 6 mg at HS same day. planned to start WONG 05/26. calls placed to [facility] prescriber, awaiting call back. appeared to suffer from akathisia 05/25 and was started on cogentin 1 TID. describes akathisia with risperidone as well. agrees to switch to zyprexa 10 mg as of 05/26; relprevv later if pt tolerates PO zyprexa. cogentin DCed 05/26. 05/27 start thorazine 50 mg Q6H PRN for agitation, anxiety. discharge to home once stabilized. I spent minutes with the patient and/or on the patient floor today, greater than?50% of which was spent counseling/coordinating care. Patient educated on: medication risk/benefits Reason for contiued inpatient stay Substantial Risk for: inability to function, rapid decompensation and med/psych decompensation
[2021-05-27 15:34] VITALS: BP 128/65; PULSE 97
[2021-05-27 20:32] VITALS: BP 134/93; PULSE 93; RESP 18; TEMP 36.6; O2SAT 98
[2021-05-27 20:44] VITALS: BP 127/78; PULSE 93
[2021-05-27] MEDS: traZODone HCL 50 MG TABLET PO (20:44)
[2021-05-27] MEDS: OLANZapine 10 MG TABLET PO (20:44)
[2021-05-28 08:10] VITALS: BP 131/64; PULSE 87
[2021-05-28] MEDS: Propranolol HCL 10 MG TABLET PO ×3 (08:10→20:43)
[2021-05-28 08:17] VITALS: BP 131/64; PULSE 87; RESP 16; TEMP 36.7; O2SAT 97
[2021-05-28] MEDS: Sertraline HCL 50 MG TABLET PO (13:33)
[2021-05-28 14:55] VITALS: BP 128/71; PULSE 83
[2021-05-28 18:00] VITALS: BP 129/64; PULSE 88; RESP 16; TEMP 36.3; O2SAT 95
[2021-05-28 20:43] VITALS: BP 129/64; PULSE 88
[2021-05-28] MEDS: OLANZapine 10 MG TABLET PO (20:43)
[2021-05-28] MEDS: traZODone HCL 50 MG TABLET PO (20:43)
[2021-05-29 07:00] VITALS: BMI 39.2
[2021-05-29 09:26] VITALS: BP 126/76; PULSE 96; RESP 16; TEMP 36.9; O2SAT 98
[2021-05-29 09:55] VITALS: BP 126/76; PULSE 96
[2021-05-29] MEDS: Sertraline HCL 50 MG TABLET PO (09:55)
[2021-05-29] MEDS: Propranolol HCL 10 MG TABLET PO ×3 (09:55→20:51)
[2021-05-29 15:51] VITALS: BP 129/71; PULSE 95
[2021-05-29 16:40] VITALS: BP 129/71; PULSE 95; TEMP 36.4; O2SAT 96
--- NOTE | 2021-05-29 18:59 | P.PNPSI_ITS ---
Subjective Subjective Date of Service: 05/28/21 Reason For Visit: Psychosis Interim History: Patient seen and discussed with team. Patient evaluated this morning and upon interview he reports his thoughts are still the same. Sleep is good. Denies benefit on zyprexa, I dont think the p ills do anything, its just my head. Has been on zyprexa 20 mg in the past but denies noticing benefit, although may not be accurate historian. Says he has not utilized thorazine PRN, I forget these things a lot, I cant keep up with anything. Denies anger or anxiety. Says the only thing im thinking is I want to look for a bioinformaticist, says he wants to be put to sleep because he doesnt want to keep dealing with my head. Says he doesnt wanna go back home like this. Reports he has nightmares of harming people, running, screaming, and fighting. Says he is worried about punching or pushing people. Thoughts appear ego- dystonic and bother him. Pt is frustrated, says nothing changes on medication and the thoughts come back and medication just keeps me calm. Denies past trials on serotonergic medication, does not think he has been on an SSRI. Says walking and staying busy helps distract him from his thoughts. Denies hx of manic or hypomanic episodes. Energy is usually low. In the milieu, patient is safe but isolative in behavior. Denies SI/SIB/HI upon inquiry. Denies irritability or assaultive ideation. Says he feels safe. Medication Compliance: Yes Side effects from medications: No Attending Groups: No Review of Systems Acute medical concerns: No Medical Review of Systems: unchanged Mental Status Exam Mental Status Exam Narrative: A&O. Found in milieu, able to meet in interview room, casual dress, overweight, not malodorous. Intermitten eye contact, somewhat attentive. No Tics or Tremors. No abnormal involuntary movements. Calm, withdrawn but answers questions. Non-pressured speech, non-spontaneous with regular rate and rhythm, normal volume and prosody. No prolonged speech latency or dysarthria. Mood is ?good,? affect is distressed, appears internally preoccupied. Denies SI/SIB/HI upon inquiry. Endorses AH, denies VH. Appears paranoid. Thoughts are ruminative on his safety. No known cognitive or memory impairment. Insight/ Judgment impaired. Diagnostics Vital Signs (24Hr): Vital Signs - 24 hr 05/28/21 20:43 05/29/21 09:26 05/29/21 09:55 Temperature 98.4 F Pulse Rate 88 96 96 Respiratory Rate 16 Blood Pressure 129/64 126/76 126/76 Pulse Oximetry 98 05/29/21 15:51 05/29/21 16:40 Temperature 97.6 F Pulse Rate 95 95 Respiratory Rate Blood Pressure 129/71 129/71 Pulse Oximetry 96 BMI result Body Mass Index 39.2 Labs Results: 05/18/21 18:51 05/18/21 18:51 Medications Medications Current Medications Acetaminophen (Acetaminophen 325 Mg Tablet) 650 mg PO Q6H PRN PRN Reason: Headache/Pain Mild Scale (1-3) Al Hydroxide/Mg Hydroxide (Magnesium Hydrox/Alum Hydrox 30 Ml Oral.Susp) 30 ml PO Q6H PRN PRN Reason: Heartburn/Nausea Chlorpromazine HCl (Chlorpromazine Hcl 25 Mg Tablet) 50 mg PO Q6H PRN PRN Reason: severe agitation, psychosis Hydroxyzine HCl (Hydroxyzine Hcl 25 Mg Tablet) 25 mg PO Q6H PRN PRN Reason: Anxiety Last Admin: 05/25/21 13:26 Dose: 25 mg Documented by: Lorazepam (Lorazepam 0.5 Mg Tablet) 0.5 mg PO Q6H PRN PRN Reason: Anxiety Last Admin: 05/25/21 21:13 Dose: 0.5 mg Documented by: Magnesium Hydroxide (Milk Of Magnesia 30 Ml Oral.Susp) 30 ml PO DAILY PRN PRN Reason: Constipation Nicotine Polacrilex (Nicotine Polacrilex 2 Mg Gum) 4 mg BUCCAL Q2H PRN PRN Reason: Nicotine Cravings Olanzapine (Olanzapine 10 Mg Tablet) 20 mg PO BEDTIME KYLE Propranolol HCl (Propranolol Hcl 10 Mg Tablet) 10 mg PO TID KYLE; Protocol Last Admin: 05/29/21 15:51 Dose: 10 mg Documented by: Sertraline HCl (Sertraline Hcl 50 Mg Tablet) 50 mg PO DAILY KYLE Last Admin: 05/29/21 09:55 Dose: 50 mg Documented by: Trazodone HCl (Trazodone Hcl 50 Mg Tablet) 50 mg PO BEDTIME PRN PRN Reason: Insomnia Last Admin: 05/28/21 20:43 Dose: 50 mg Documented by: Allergies Allergies Allergy/AdvReac Type Severity Reaction Status Date / Time Penicillins [PENICILLINS] Allergy Unknown RASH Verified 05/19/21 07:39 Assessment & Plan Assessment & Plan (1) Schizophrenia: Status: Acute Code(s): F20.9 - Schizophrenia, unspecified Assessment and Plan: DCed PO risperidone 05/22, started invega 6 mg at HS same day. planned to start WONG 05/26. calls placed to [facility] [place] prescriber, awaiting call back. appeared to suffer from akathisia 05/25 and was started on cogentin 1 TID. describes akathisia with risperidone as well. agrees to switch to zyprexa 10 mg as of 05/26; relprevv later if pt tolerates PO zyprexa. cogentin DCed 05/26. 05/27 start thorazine 50 mg Q6H PRN for agitation, anxiety. 05/28 start sertr genesis 50 mg QD for obsessional and ego-dystonic thoughts of harming others. Discussed clonidine/ prazosin for nightmares, however already on propranolol. discharge to home once stabilized. I spent minutes with the patient and/or on the patient floor today, greater than?50% of which was spent counseling/coordinating care. Reason for contiued inpatient stay Substantial Risk for: inability to function, rapid decompensation and med/psych decompensation
--- NOTE | 2021-05-29 18:59 | P.PNPSI_ITS ---
Subjective Subjective Date of Service: 05/29/21 Reason For Visit: Psychosis Interim History: Patient seen and discussed with team. Patient evaluated this morning and upon interview he reports he feels calmer, and my body is a little more numb and relaxed. However, says his thoughts of harming others are still the same. Denies AH, endorses hearing his own voice in his head that insists that i should do what i said yesterday, i.e. put myself to sleep. Says he feels like dying, but then says I dont feel like dying but feels he would be better off to be than to act on these things. Denies assaultive ideation to a particular person, could be anybody, but does feel triggered if someone annoys him. Denies VH or having visions of harming others, describes thoughts more as urges to punch or hit others or run outta here. Sleep is good. Mood is good. Denies feeling depressed or anxious. Denies feeling angry or irritable. Says his thoughts bother him when i dont have anything to do. Says he feels hopeless because I feel like its gonna get worse, its not gonna get fixed. In the milieu, patient is safe but isolative in behavior, found in his room on m attress on the floor in the dark. Denies SI/SIB/HI upon inquiry. Denies irritability or assaultive ideation. Says he feels safe. Medication Compliance: Yes Side effects from medications: No Attending Groups: No Review of Systems Acute medical concerns: No Medical Review of Systems: unchanged Mental Status Exam Mental Status Exam Narrative: A&O. Found in milieu, lying down in mattress on the floor, casual dress, overweight, not malodorous. Intermittent eye contact, somewhat attentive. No Tics or Tremors. No abnormal involuntary movements. Calm, withdrawn but answers questions. Non-pressured speech, non-spontaneous with regular rate and rhythm, normal volume and prosody. No prolonged speech latency or dysarthria. Mood is ?good,? affect is distressed, appears internally preoccupied. Denies SI/SIB/HI upon inquiry. Endorses AH, denies VH. Appears paranoid. Thoughts are ruminative on his safety. No known cognitive or memory impairment. Insight/ Ju dgment impaired. Diagnostics Vital Signs (24Hr): Vital Signs - 24 hr 05/28/21 20:43 05/29/21 09:26 05/29/21 09:55 Temperature 98.4 F Pulse Rate 88 96 96 Respiratory Rate 16 Blood Pressure 129/64 126/76 126/76 Pulse Oximetry 98 05/29/21 15:51 05/29/21 16:40 Temperature 97.6 F Pulse Rate 95 95 Respiratory Rate Blood Pressure 129/71 129/71 Pulse Oximetry 96 BMI result Body Mass Index 39.2 Labs Results: 05/18/21 18:51 05/18/21 18:51 Medications Medications Current Medications Acetaminophen (Acetaminophen 325 Mg Tablet) 650 mg PO Q6H PRN PRN Reason: Headache/Pain Mild Scale (1-3) Al Hydroxide/Mg Hydroxide (Magnesium Hydrox/Alum Hydrox 30 Ml Oral.Susp) 30 ml PO Q6H PRN PRN Reason: Heartburn/Nausea Chlorpromazine HCl (Chlorpromazine Hcl 25 Mg Tablet) 50 mg PO Q6H PRN PRN Reason: severe agitation, psychosis Hydroxyzine HCl (Hydroxyzine Hcl 25 Mg Tablet) 25 mg PO Q6H PRN PRN Reason: Anxiety Last Admin: 05/25/21 13:26 Dose: 25 mg Documented by: Lorazepam (Lorazepam 0.5 Mg Tablet) 0.5 mg PO Q6H PRN PRN Reason: Anxiety Last Admin: 05/25/21 21:13 Dose: 0.5 mg Documented by: Magnesium Hydroxide (Milk Of Magnesia 30 Ml Oral.Susp) 30 ml PO DAILY PRN PRN Reason: Constipation Nicotine Polacrilex (Nicotine Polacrilex 2 Mg Gum) 4 mg BUCCAL Q2H PRN PRN Reason: Nicotine Cravings Olanzapine (Olanzapine 10 Mg Tablet) 20 mg PO BEDTIME KYLE Propranolol HCl (Propranolol Hcl 10 Mg Tablet) 10 mg PO TID KYLE; Protocol Last Admin: 05/29/21 15:51 Dose: 10 mg Documented by: Sertraline HCl (Sertraline Hcl 50 Mg Tablet) 50 mg PO DAILY KYLE Last Admin: 05/29/21 09:55 Dose: 50 mg Documented by: Trazodone HCl (Trazodone Hcl 50 Mg Tablet) 50 mg PO BEDTIME PRN PRN Reason: Insomnia Last Admin: 05/28/21 20:43 Dose: 50 mg Documented by: Allergies Allergies Allergy/AdvReac Type Severity Reaction Status Date / Time Penicillins [PENICILLINS] Allergy Unknown RASH Verified 05/19/21 07:39 Assessment & Plan Assessment & Plan (1) Schizophrenia: Status: Acute Code(s): F20.9 - Schizophrenia, unspecified Assessment and Plan: DCed PO risperidone 05/22, started invega 6 mg at HS same day.? planned to start WONG 05/26. calls placed to [facility] prescriber, awaiting call back. appeared to suffer from akathisia 05/25 and was started on cogentin 1 TID.? describes akathisia with risperidone as well.? agrees to switch to zyprexa 10 mg as of? 05/26; relprevv later if pt tolerates PO zyprexa.? cogentin DCed 05/26. 05/27 start thorazine 50 mg Q6H PRN for agitation, anxiety. 05/28 start sertraline 50 mg QD for obsessional and ego-dystonic thoughts of harming others. Discussed clonidine/ prazosin for nightmares, however already on propranolol. 05/29: Increased zyprexa to 20 mg to target psychotic sx, as pt has been on 20 mg in the past and per chart he had some sx improvement on this dose. Will justin nue sertraline trial and monitor for activating SE or worsening psychosis. discharge to home once stabilized. I spent minutes with the patient and/or on the patient floor today, greater than?50% of which was spent counseling/coordinating care. Reason for contiued inpatient stay Substantial Risk for: inability to function, rapid decompensation and med/psych decompensation
[2021-05-29] MEDS: OLANZapine 10 MG TABLET 20 MG PO (20:51)
[2021-05-30 08:00] VITALS: BP 118/63; PULSE 86; TEMP 36.6; O2SAT 96
[2021-05-30 09:05] VITALS: BP 118/63; PULSE 86
[2021-05-30] MEDS: Sertraline HCL 50 MG TABLET PO (09:05)
[2021-05-30] MEDS: Propranolol HCL 10 MG TABLET PO ×3 (09:05→20:45)
[2021-05-30] MEDS: LORazepam 0.5 MG TABLET PO (09:06)
[2021-05-30 14:40] VITALS: BP 121/67; PULSE 102
[2021-05-30 14:46] VITALS: BP 121/67; PULSE 102; TEMP 37.2; O2SAT 96
[2021-05-30 20:40] VITALS: BP 125/60; PULSE 105; RESP 18; TEMP 36.2; O2SAT 97
[2021-05-30] MEDS: OLANZapine 10 MG TABLET 20 MG PO (20:44)
[2021-05-30 20:45] VITALS: BP 125/60; PULSE 105
[2021-05-30] MEDS: traZODone HCL 50 MG TABLET PO (20:45)
--- NOTE | 2021-05-30 22:11 | P.PNPSI_ITS ---
Subjective Subjective Date of Service: 05/30/21 Reason For Visit: Psychosis Subjective Notes: Conditional Voluntary Interim History: Patient tolerating current medication regimen has been in behavioral control. Has been stating feels medication helping him. Continues to complain of auditory hallucinations remain somewhat fearful but denies plan or intent to harm others Mental Status Exam Mental Status Exam Patient Appearance: Appropriate Patient Orientation: Person, Place and Situation Level of Consciousness: Awake Mood Description: Anxious and Apprehensive Affect Description: Constricted and Apprehensive Patient Cognition Impaired: No Speech Pattern: Appropriate Memory Description: Intact Hallucinations: Auditory Thought Process: Rumination Depressive Symptoms: Increased Anxiety Judgement: Fair Judgement and Insight: Impulse control appears intact cooperative with treatment Diagnostics Vital Signs (24Hr): Vital Signs - 24 hr 05/30/21 08:00 05/30/21 09:05 05/30/21 14:40 Temperature 98 F Pulse Rate 86 86 102 H Respiratory Rate Blood Pressure 118/63 118/63 121/67 Pulse Oximetry 96 05/30/21 14:46 05/30/21 20:40 05/30/21 20:45 Temperature 98.9 F 97.2 F Pulse Rate 102 H 105 H 105 H Respiratory Rate 18 Blood Pressure 121/67 125/60 125/60 Pulse Oximetry 96 97 BMI result Body Mass Index 39.2 Labs Results: 05/18/21 18:51 05/18/21 18:51 Medications Medications Current Medications Acetaminophen (Acetaminophen 325 Mg Tablet) 650 mg PO Q6H PRN PRN Reason: Headache/Pain Mild Scale (1-3) Al Hydroxide/Mg Hydroxide (Magnesium Hydrox/Alum Hydrox 30 Ml Oral.Susp) 30 ml PO Q6H PRN PRN Reason: Heartburn/Nausea Chlorpromazine HCl (Chlorpromazine Hcl 25 Mg Tablet) 50 mg PO Q6H PRN PRN Reason: severe agitation, psychosis Hydroxyzine HCl (Hydroxyzine Hcl 25 Mg Tablet) 25 mg PO Q6H PRN PRN Reason: Anxiety Last Admin: 05/25/21 13:26 Dose: 25 mg Documented by: Magnesium Hydroxide (Milk Of Magnesia 30 Ml Oral.Susp) 30 ml PO DAILY PRN PRN Reason: Constipation Nicotine Polacrilex (Nicotine Polacrilex 2 Mg Gum) 4 mg BUCCAL Q2H PRN PRN Reason: Nicotine Cravings Olanzapine (Olanzapine 10 Mg Tablet) 20 mg PO BEDTIME KYLE Last Admin: 05/30/21 20:44 Dose: 20 mg Documented by: Propranolol HCl (Propranolol Hcl 10 Mg Tablet) 10 mg PO TID KYLE; Protocol Last Admin: 05/30/21 20:45 Dose: 10 mg Documented by: Sertraline HCl (Sertraline Hcl 50 Mg Tablet) 50 mg PO DAILY [facility] Last Admin: 05/30/21 09:05 Dose: 50 mg Documented by: Trazodone HCl (Trazodone Hcl 50 Mg Tablet) 50 mg PO BEDTIME PRN PRN Reason: Insomnia Last Admin: 05/30/21 20:45 Dose: 50 mg Documented by: Allergies Allergies Allergy/AdvReac Type Severity Reaction Status Date / Time Penicillins [PENICILLINS] Allergy Unknown RASH Verified 05/19/21 07:39 Assessment & Plan Assessment & Plan (1) Schizophrenia: Status: Acute Code(s): F20.9 - Schizophrenia, unspecified Assessment and Plan: DCed PO risperidone 05/22, started invega 6 mg at HS same day.? planned to start WONG 05/26. calls placed to [facility] prescriber, awaiting call back. appeared to suffer from akathisia 05/25 and was started on cogentin 1 TID.? describes akathisia with risperidone as well.? agrees to switch to zyprexa 10 mg as of? 05/26; relprevv later if pt tolerates PO zyprexa.? cogentin DCed 05/26. 05/27 start thorazine 50 mg Q6H PRN for agitation, anxiety. 05/28 start sertraline 50 mg QD for obsessional and ego-dystonic thoughts of harming others. Discussed clonidine/ prazosin for nightmares, however already on propranolol. 05/29: Increased zyprexa to 20 mg to target psychotic sx, as pt has been on 20 mg in the past and per chart he had some sx improvement on this dose. Will continue sertraline trial and monitor for activating SE or worsening psychosis. discharge to home once stabilized. 05/30/2021 Patient appears to be tolerating olanzapine sertraline trial not active headache decreased symptoms impulse control intact patient would benefit from long- acting injectable to not tolerated inVega I spent minutes with the patient and/or on the patient floor today, greater than?50% of which was spent counseling/coordinating care. Reason for contiued inpatient stay Substantial Risk for: harm to others
[2021-05-31 06:00] VITALS: BP 124/73; PULSE 95; RESP 16; TEMP 36.2; O2SAT 97
[2021-05-31 08:59] VITALS: BP 124/73; PULSE 95
[2021-05-31] MEDS: Sertraline HCL 50 MG TABLET PO (08:59)
[2021-05-31] MEDS: Propranolol HCL 10 MG TABLET PO ×3 (08:59→20:32)
[2021-05-31 15:03] VITALS: BP 124/62; PULSE 113
[2021-05-31 20:24] VITALS: BP 117/61; PULSE 92; RESP 18; TEMP 37.3; O2SAT 99
[2021-05-31] MEDS: OLANZapine 10 MG TABLET 20 MG PO (20:31)
[2021-05-31 20:32] VITALS: BP 117/61; PULSE 92
[2021-05-31] MEDS: chlorproMAZINE HCl 25 MG TABLET 50 MG PO (20:32)
--- NOTE | 2021-05-31 20:40 | PC.NURSE ---
Julio reported some auditory hallucinations. Patient given Thorazine PO prn with HS medications to help with psychosis.
--- NOTE | 2021-05-31 23:39 | HO.PSYCHPN ---
Subjective Subjective Date of Service: 05/31/21 Reason For Visit: Psychosis Subjective Notes: Conditional Voluntary Healthcare Proxy: No Guardianship: No Interim History: case reviewed tx team chart reviewed pt seen mood flat vague harper no active hi withdrawn taking medication Medication Compliance: Yes Mental Status Exam Mental Status Exam Patient Appearance: Appropriate Patient Orientation: Person, Place and Situation Level of Consciousness: Awake Mood Description: Anxious and Apprehensive Affect Description: Constricted and Apprehensive Patient Cognition Impaired: No Speech Pattern: Appropriate Memory Description: Intact Hallucinations: Auditory Thought Process: Rumination Depressive Symptoms: Increased Anxiety Judgement: Fair Judgement and Insight: Impulse control appears intact cooperative with treatment Diagnostics Vital Signs (24Hr): Vital Signs - 24 hr 05/31/21 06:00 05/31/21 08:59 05/31/21 15:03 Temperature 97.2 F Pulse Rate 95 95 113 H Respiratory Rate 16 Blood Pressure 124/73 124/73 124/62 Pulse Oximetry 97 05/31/21 20:24 05/31/21 20:32 Temperature 99.1 F Pulse Rate 92 92 Respiratory Rate 18 Blood Pressure 117/61 117/61 Pulse Oximetry 99 BMI result Body Mass Index 39.2 Labs Results: 05/18/21 18:51 05/18/21 18:51 Medications Medications Current Medications Acetaminophen (Acetaminophen 325 Mg Tablet) 650 mg PO Q6H PRN PRN Reason: Headache/Pain Mild Scale (1-3) Al Hydroxide/Mg Hydroxide (Magnesium Hydrox/Alum Hydrox 30 Ml Oral.Susp) 30 ml PO Q6H PRN PRN Reason: Heartburn/Nausea Chlorpromazine HCl (Chlorpromazine Hcl 25 Mg Tablet) 50 mg PO Q6H PRN PRN Reason: severe agitation, psychosis Last Admin: 05/31/21 20:32 Dose: 50 mg Documented by: Hydroxyzine HCl (Hydroxyzine Hcl 25 Mg Tablet) 25 mg PO Q6H PRN PRN Reason: Anxiety Last Admin: 05/25/21 13:26 Dose: 25 mg Documented by: Magnesium Hydroxide (Milk Of Magnesia 30 Ml Oral.Susp) 30 ml PO DAILY PRN PRN Reason: Constipation Nicotine Polacrilex (Nicotine Polacrilex 2 Mg Gum) 4 mg BUCCAL Q2H PRN PRN Reason: Nicotine Cravings Olanzapine (Olanzapine 10 Mg Tablet) 20 mg PO BEDTIME KYLE Last Admin: 05/31/21 20:31 Dose: 20 mg Documented by: Propranolol HCl (Propranolol Hcl 10 Mg Tablet) 10 mg PO TID [facility]; Protocol Last Admin: 05/31/21 20:32 Dose: 10 mg Documented by: Sertraline HCl (Sertraline Hcl 50 Mg Tablet) 50 mg PO DAILY [facility] Last Admin: 05/31/21 08:59 Dose: 50 mg Documented by: Trazodone HCl (Trazodone Hcl 50 Mg Tablet) 50 mg PO BEDTIME PRN PRN Reason: Insomnia Last Admin: 05/30/21 20:45 Dose: 50 mg Documented by: Allergies Allergies Allergy/AdvReac Type Severity Reaction Status Date / Time Penicillins [PENICILLINS] Allergy Unknown RASH Verified 05/19/21 07:39 Assessment & Plan Assessment & Plan (1) Schizophrenia: Status: Acute Code(s): F20.9 - Schizophrenia, unspecified Assessment and Plan: DCed PO risperidone 05/22, started invega 6 mg at HS same day.? planned to start WONG 05/26. calls placed to [facility] prescriber, awaiting call back. appeared to suffer from akathisia 05/25 and was started on cogentin 1 TID.? describes akathisia with risperidone as well.? agrees to switch to zyprexa 10 mg as of? 05/26; relprevv later if pt tolerates PO zyprexa.? cogentin DCed 05/26. 05/27 start thorazine 50 mg Q6H PRN for agitation, anxiety. 05/28 start sertraline 50 mg QD for obsessional and ego-dystonic thoughts of harming others. Discussed clonidine/ prazosin for nightmares, however already on propranolol. 05/29: Increased zyprexa to 20 mg to target psychotic sx, as pt has been on 20 mg in the past and per chart he had some sx improvement on this dose. Will continue sertraline trial and monitor for activating SE or worsening psychosis. discharge to home once stabilized. 05/30/2021 Patient appears to be tolerating olanzapine sertraline trial not active headache decreased symptoms impulse control intact patient would benefit from long-acting injectable to not tolerated inVega 05/31/20 Pt seen in f/u cont ssri and olanzapine monitor safety to otyers I spent minutes with the patient and/or on the patient floor today, greater than?50% of which was spent counseling/coordinating care. Reason for contiued inpatient stay Substantial Risk for: harm to others and rapid decompensation
[2021-06-01 06:00] VITALS: BP 120/63; PULSE 94; RESP 18; TEMP 36.5; O2SAT 98
[2021-06-01 09:09] VITALS: BP 120/63; PULSE 91
[2021-06-01] MEDS: Propranolol HCL 10 MG TABLET PO ×3 (09:09→20:18)
[2021-06-01] MEDS: Sertraline HCL 50 MG TABLET PO (09:09)
--- NOTE | 2021-06-01 14:28 | HO.PSYCHPN ---
Subjective Subjective Date of Service: 06/01/21 Reason For Visit: Psychosis Subjective Notes: Conditional Voluntary Interim History: Patient has been somewhat isolative mood flat behavoir isolated l in his room taking medication no c/o side effects Medication Compliance: Yes Mental Status Exam Mental Status Exam Narrative: pt seen in room withdrawn dysphoric pov of content denies aud harper currently denies thoughts harm to others minmial interaction flat denies si insight limited . Diagnostics Vital Signs (24Hr): Vital Signs - 24 hr 05/31/21 15:03 05/31/21 20:24 05/31/21 20:32 Temperature 99.1 F Pulse Rate 113 H 92 92 Respiratory Rate 18 Blood Pressure 124/62 117/61 117/61 Pulse Oximetry 99 06/01/21 09:09 Temperature Pulse Rate 91 Respiratory Rate Blood Pressure 120/63 Pulse Oximetry BMI result Body Mass Index 39.2 Labs Results: 05/18/21 18:51 05/18/21 18:51 Medications Medications Current Medications Acetaminophen (Acetaminophen 325 Mg Tablet) 650 mg PO Q6H PRN PRN Reason: Headache/Pain Mild Scale (1-3) Al Hydroxide/Mg Hydroxide (Magnesium Hydrox/Alum Hydrox 30 Ml Oral.Susp) 30 ml PO Q6H PRN PRN Reason: Heartburn/Nausea Chlorpromazine HCl (Chlorpromazine Hcl 25 Mg Tablet) 50 mg PO Q6H PRN PRN Reason: severe agitation, psychosis Last Admin: 05/31/21 20:32 Dose: 50 mg Documented by: Hydroxyzine HCl (Hydroxyzine Hcl 25 Mg Tablet) 25 mg PO Q6H PRN PRN Reason: Anxiety Last Admin: 05/25/21 13:26 Dose: 25 mg Documented by: Magnesium Hydroxide (Milk Of Magnesia 30 Ml Oral.Susp) 30 ml PO DAILY PRN PRN Reason: Constipation Nicotine Polacrilex (Nicotine Polacrilex 2 Mg Gum) 4 mg BUCCAL Q2H PRN PRN Reason: Nicotine Cravings Olanzapine (Olanzapine 10 Mg Tablet) 20 mg PO BEDTIME [facility] Last Admin: 05/31/21 20:31 Dose: 20 mg Documented by: Propranolol HCl (Propranolol Hcl 10 Mg Tablet) 10 mg PO TID KYLE; Protocol Last Admin: 06/01/21 09:09 Dose: 10 mg Documented by: Sertraline HCl (Sertraline Hcl 50 Mg Tablet) 50 mg PO DAILY [facility] Last Admin: 06/01/21 09:09 Dose: 50 mg Documented by: Trazodone HCl (Trazodone Hcl 50 Mg Tablet) 50 mg PO BEDTIME PRN PRN Reason: Insomnia Last Admin: 05/30/21 20:45 Dose: 50 mg Documented by: Allergies Allergies Allergy/AdvReac Type Severity Reaction Status Date / Time Penicillins [PENICILLINS] Allergy Unknown RASH Verified 05/19/21 07:39 Assessment & Plan Assessment & Plan (1) Schizophrenia: Status: Acute Code(s): F20.9 - Schizophrenia, unspecified Assessment and Plan: DCed PO risperidone 05/22, started invega 6 mg at HS same day.? planned to start CHAPPELL 05/26. calls placed to [facility] prescriber, awaiting call back. appeared to suffer from akathisia 05/25 and was started on cogentin 1 TID.? describes akathisia with risperidone as well.? agrees to switch to zyprexa 10 mg as of? 05/26; relprevv later if pt tolerates PO zyprexa.? cogentin DCed 05/26. 05/27 start thorazine 50 mg Q6H PRN for agitation, anxiety. 05/28 start sertraline 50 mg QD for obsessional and ego-dystonic thoughts of harming others. Discussed clonidine/ prazosin for nightmares, however already on propranolol. 05/29: Increased zyprexa to 20 mg to target psychotic sx, as pt has been on 20 mg in the past and per chart he had some sx improvement on this dose. Will continue sertraline trial and monitor for activating SE or worsening psychosis. discharge to home once stabilized. 05/30/2021 Patient appears to be tolerating olanzapine sertraline trial not active headache decreased symptoms impulse control intact patient would benefit from long-acting injectable to not tolerated inVega 05/31/21 Pt seen in f/u cont ssri and olanzapine monitor safety to otyers 06/01/21 Pt withdrawn on sertraline zyprexa isolated ? denies harper ? PI no aggressive behavoir woulkd do better on chappell I spent minutes with the patient and/or on the patient floor today, greater than?50% of which was spent counseling/coordinating care. Reason for contiued inpatient stay Substantial Risk for: harm to others and rapid decompensation
[2021-06-01 15:04] VITALS: BP 114/60; PULSE 89
[2021-06-01 20:15] VITALS: BP 117/66; PULSE 90; RESP 19; TEMP 36; O2SAT 97
[2021-06-01 20:18] VITALS: BP 117/66; PULSE 90
[2021-06-01] MEDS: OLANZapine 10 MG TABLET 20 MG PO (20:18)
[2021-06-02] MEDS: Propranolol HCL 10 MG TABLET PO ×3 (10:38→21:04)
[2021-06-02] MEDS: Sertraline HCL 50 MG TABLET PO (10:39)
[2021-06-02 10:43] VITALS: BP 125/73; PULSE 115; RESP 15; TEMP 36.4; O2SAT 94
--- NOTE | 2021-06-02 13:01 | HO.PSYCHPN ---
Subjective Subjective Date of Service: 06/02/21 Reason For Visit: Psychosis Interim History: Pt reports he was hearing voices telling him to hurt his nephew. He reports he is not hearing these voices anymore. Pt denies SI. He continues to present as withdrawn, mostly in his room, minimally interacting with peers. Per nursing, pt mostly in room, sleeping on mattress on floor for unclear reasons. No behavioral concerns. Medication Compliance: Yes Side effects from medications: No Attending Groups: No Review of Systems Review of Systems CVS: No c/o chest pain, palpitations, no SOB [employer]: No c/o dizziness, headache GI: No c/o Nausea, Vomiting, diarrhea, constipation or heartburn Yes all other systems are reviewed and are negative Mental Status Exam Mental Status Exam Narrative: A&O. Found in milieu, lying down in mattress on the floor, casual dress, overweight, not malodorous. Intermittent eye contact, somewhat attentive. No Tics or Tremors. No abnormal involuntary movements. Calm, withdrawn but answers questions. Non-pressured speech, non-spontaneous with regular rate and rhythm, normal volume and prosody. No prolonged speech latency or dysarthria. Mood is ?better,? affect is constricted. Denies SI/SIB/HI upon inquiry. Endorses AH, denies VH. Appears paranoid. Thoughts are ruminative on his safety. No known cognitive or memory impairment. Insight/ Judgment impaired. Diagnostics Vital Signs (24Hr): Vital Signs - 24 hr 06/01/21 15:04 06/01/21 20:15 06/01/21 20:18 Temperature 96.8 F Pulse Rate 89 90 90 Respiratory Rate 19 Blood Pressure 114/60 117/66 117/66 Pulse Oximetry 97 06/02/21 10:43 Temperature 97.6 F Pulse Rate 115 H Respiratory Rate 15 Blood Pressure 125/73 Pulse Oximetry 94 BMI result Body Mass Index 39.2 Labs Results: 05/18/21 18:51 05/18/21 18:51 Medications Medications Current Medications Acetaminophen (Acetaminophen 325 Mg Tablet) 650 mg PO Q6H PRN PRN Reason: Headache/Pain Mild Scale (1-3) Al Hydroxide/Mg Hydroxide (Magnesium Hydrox/Alum Hydrox 30 Ml Oral.Susp) 30 ml PO Q6H PRN PRN Reason: Heartburn/Nausea Chlorpromazine HCl (Chlorpromazine Hcl 25 Mg Tablet) 50 mg PO Q6H PRN PRN Reason: severe agitation, psychosis Last Admin: 05/31/21 20:32 Dose: 50 mg Documented by: Hydroxyzine HCl (Hydroxyzine Hcl 25 Mg Tablet) 25 mg PO Q6H PRN PRN Reason: Anxiety Last Admin: 05/25/21 13:26 Dose: 25 mg Documented by: Magnesium Hydroxide (Milk Of Magnesia 30 Ml Oral.Susp) 30 ml PO DAILY PRN PRN Reason: Constipation Nicotine Polacrilex (Nicotine Polacrilex 2 Mg Gum) 4 mg BUCCAL Q2H PRN PRN Reason: Nicotine Cravings Olanzapine (Olanzapine 10 Mg Tablet) 20 mg PO BEDTIME KYLE Last Admin: 06/01/21 20:18 Dose: 20 mg Documented by: Propranolol HCl (Propranolol Hcl 10 Mg Tablet) 10 mg PO TID [facility]; Protocol Last Admin: 06/02/21 10:38 Dose: 10 mg Documented by: Sertraline HCl (Sertraline Hcl 50 Mg Tablet) 50 mg PO DAILY [facility] Last Admin: 06/02/21 10:39 Dose: 50 mg Documented by: Trazodone HCl (Trazodone Hcl 50 Mg Tablet) 50 mg PO BEDTIME PRN PRN Reason: Insomnia Last Admin: 05/30/21 20:45 Dose: 50 mg Documented by: Allergies Allergies Allergy/AdvReac Type Severity Reaction Status Date / Time Penicillins [PENICILLINS] Allergy Unknown RASH Verified 05/19/21 07:39 Assessment & Plan Assessment & Plan (1) Schizophrenia: Status: Acute Code(s): F20.9 - Schizophrenia, unspecified Assessment and Plan: DCed PO risperidone 05/22, started invega 6 mg at HS same day.? planned to start WONG 05/26. calls placed to [facility] prescriber, awaiting call back. appeared to suffer from akathisia 05/25 and was started on cogentin 1 TID.? describes akathisia with risperidone as well.? agrees to switch to zyprexa 10 mg as of? 05/26; relprevv later if pt tolerates PO zyprexa.? cogentin DCed 05/26. 05/27 start thorazine 50 mg Q6H PRN for agitation, anxiety. 05/28 start sertraline 50 mg QD for obsessional and ego-dystonic thoughts of harming others. Discussed clonidine/ prazosin for nightmares, however already on propranolol. 05/29: Increased zyprexa to 20 mg to target psychotic sx, as pt has been on 20 mg in the past and per chart he had some sx improvement on this dose. Will continue sertraline trial and monitor for activating SE or worsening psychosis. discharge to home once stabilized. 05/30/2021 Patient appears to be tolerating olanzapine sertraline trial not active headache decreased symptoms impulse control intact patient would benefit from long-acting injectable to not tolerated inVega 05/31/20 Pt seen in f/u cont ssri and olanzapine monitor safety to otyers 06/02- pt reports less AH, no SI/HI. Mostly in bed, minimally interacting with peers. No behavioral concerns. I spent minutes with the patient and/or on the patient floor today, greater than?50% of which was spent counseling/coordinating care. Reason for contiued inpatient stay Substantial Risk for: inability to function
[2021-06-02 16:02] VITALS: BP 122/64; PULSE 94; TEMP 36.6; O2SAT 96
[2021-06-02] MEDS: OLANZapine 10 MG TABLET 20 MG PO (21:04)
[2021-06-02 21:45] VITALS: BP 139/65; PULSE 91; RESP 16; TEMP 36.7; O2SAT 97
[2021-06-03 08:58] VITALS: BP 127/71; PULSE 101; TEMP 36.3; O2SAT 98
[2021-06-03] MEDS: Propranolol HCL 10 MG TABLET PO ×3 (09:27→21:43)
[2021-06-03] MEDS: Sertraline HCL 50 MG TABLET PO (09:27)
[2021-06-03 18:15] VITALS: BP 113/59; PULSE 92; TEMP 36.6; O2SAT 94
--- NOTE | 2021-06-03 21:14 | HO.PSYCHPN ---
Subjective Subjective Date of Service: 06/03/21 Reason For Visit: Psychosis Interim History: pt found resting in his bed, easily rousable. comes with MD to interview room. states he is feeling better than when last seen by this com writer. his mood is more calm, and his AH are so-so. denies SI/HI/VH. willing to have relprevv CHAPPELL. per staff, watching TV, pacing. taking medications, denies anx/dep. had a good day, safe on the unit. flat affect. slept after 0100. Mental Status Exam Mental Status Exam Narrative: pt found resting in bed, easily rousable. appropriately dressed and groomed in street clothes. mild PMR. cooperative. speech soft and decreased in amount. nml rate, constricted prosody. thoughts linear and logical. affect blunted. mood more calm, endorses AH but states they are so-so. no SI/HI/VH expressed. Diagnostics Vital Signs (24Hr): Vital Signs - 24 hr 06/02/21 21:45 06/03/21 08:58 06/03/21 18:15 Temperature 98.1 F 97.3 F 97.8 F Pulse Rate 91 101 H 92 Respiratory Rate 16 Blood Pressure 139/65 127/71 113/59 L Pulse Oximetry 97 98 94 BMI result Body Mass Index 39.2 Labs Results: 05/18/21 18:51 05/18/21 18:51 Medications Medications Current Medications Acetaminophen (Acetaminophen 325 Mg Tablet) 650 mg PO Q6H PRN PRN Reason: Headache/Pain Mild Scale (1-3) Al Hydroxide/Mg Hydroxide (Magnesium Hydrox/Alum Hydrox 30 Ml Oral.Susp) 30 ml PO Q6H PRN PRN Reason: Heartburn/Nausea Chlorpromazine HCl (Chlorpromazine Hcl 25 Mg Tablet) 50 mg PO Q6H PRN PRN Reason: severe agitation, psychosis Last Admin: 05/31/21 20:32 Dose: 50 mg Documented by: Hydroxyzine HCl (Hydroxyzine Hcl 25 Mg Tablet) 25 mg PO Q6H PRN PRN Reason: Anxiety Last Admin: 05/25/21 13:26 Dose: 25 mg Documented by: Magnesium Hydroxide (Milk Of Magnesia 30 Ml Oral.Susp) 30 ml PO DAILY PRN PRN Reason: Constipation Nicotine Polacrilex (Nicotine Polacrilex 2 Mg Gum) 4 mg BUCCAL Q2H PRN PRN Reason: Nicotine Cravings Olanzapine (Olanzapine 10 Mg Tablet) 20 mg PO BEDTIME [facility] Last Admin: 06/02/21 21:04 Dose: 20 mg Documented by: Propranolol HCl (Propranolol Hcl 10 Mg Tablet) 10 mg PO TID [facility]; Protocol Last Admin: 06/03/21 16:47 Dose: 10 mg Documented by: Sertraline HCl (Sertraline Hcl 50 Mg Tablet) 50 mg PO DAILY [facility] Last Admin: 06/03/21 09:27 Dose: 50 mg Documented by: Trazodone HCl (Trazodone Hcl 50 Mg Tablet) 50 mg PO BEDTIME PRN PRN Reason: Insomnia Last Admin: 05/30/21 20:45 Dose: 50 mg Documented by: Allergies Allergies Allergy/AdvReac Type Severity Reaction Status Date / Time Penicillins [PENICILLINS] Allergy Unknown RASH Verified 05/19/21 07:39 Assessment & Plan Assessment & Plan (1) Schizophrenia: Status: Acute Code(s): F20.9 - Schizophrenia, unspecified Assessment and Plan: DCed PO risperidone 05/22, started invega 6 mg at HS same day.? planned to start CHAPPELL 05/26. calls placed to [facility] prescriber, awaiting call back. appeared to suffer from akathisia 05/25 and was started on cogentin 1 TID.? describes akathisia with risperidone as well.? agrees to switch to zyprexa 10 mg as of? 05/26; relprevv later if pt tolerates PO zyprexa.? cogentin DCed 05/26. 05/27 start thorazine 50 mg Q6H PRN for agitation, anxiety. 05/28 start sertraline 50 mg QD for obsessional and ego-dystonic thoughts of harming others. Discussed clonidine/ prazosin for nightmares, however already on propranolol. 05/29: Increased zyprexa to 20 mg to target psychotic sx, as pt has been on 20 mg in the past and per chart he had some sx improvement on this dose. Will continue sertraline trial and monitor for activating SE or worsening psychosis. discharge to home once stabilized. 05/30/2021 Patient appears to be tolerating olanzapine sertraline trial not active headache decreased symptoms impulse control intact patient would benefit from long-acting injectable to not tolerated inVega 05/31/21 Pt seen in f/u cont ssri and olanzapine monitor safety to otyers 06/01/21 Pt withdrawn on sertraline zyprexa isolated ? denies harper ? PI no aggressive behavoir woulkd do better on chappell 06/03 planning to obtain relprevv from outside pharmacy. pt will consider his nearness to discharge readiness. I spent minutes with the patient and/or on the patient floor today, greater than?50% of which was spent counseling/coordinating care. Reason for contiued inpatient stay Substantial Risk for: inability to function and rapid decompensation
[2021-06-03] MEDS: OLANZapine 10 MG TABLET 20 MG PO (21:43)
[2021-06-04] MEDS: Propranolol HCL 10 MG TABLET PO ×3 (08:44→21:57)
[2021-06-04] MEDS: Sertraline HCL 50 MG TABLET PO (08:45)
[2021-06-04 09:00] VITALS: BP 134/72; PULSE 96; RESP 16; TEMP 36.3; O2SAT 95
--- NOTE | 2021-06-04 13:12 | P.PNPSI_ITS ---
Subjective Subjective Date of Service: 06/04/21 Reason For Visit: Psychosis Interim History: pt found resting in his bed, easily rousable.? comes with MD to interview room.? continues to feel better than prior to starting zyprexa. no problematic side effects. AH continue, intermittent, less frequently than prior.? willing to have relprevv CHAPPELL. per staff, not attending groups. isolati ng. sleeping well. vocies less intense. Mental Status Exam Mental Status Exam Narrative: pt found resting in bed, easily rousable. appropriately dressed and groomed in street clothes. mild PMR. cooperative. speech soft and decreased in amount. nml rate, constricted prosody. thoughts linear and logical. affect blunted. endorses AH but states they are intermittent and less intense than prior to zyprexa. no SI/HI/VH expressed. Diagnostics Vital Signs (24Hr): Vital Signs - 24 hr 06/03/21 18:15 06/04/21 09:00 Temperature 97.8 F 97.4 F Pulse Rate 92 96 Respiratory Rate 16 Blood Pressure 113/59 L 134/72 Pulse Oximetry 94 95 BMI result Body Mass Index 39.2 Labs Results: 05/18/21 18:51 05/18/21 18:51 Medications Medications Current Medications Acetaminophen (Acetaminophen 325 Mg Tablet) 650 mg PO Q6H PRN PRN Reason: Headache/Pain Mild Scale (1-3) Al Hydroxide/Mg Hydroxide (Magnesium Hydrox/Alum Hydrox 30 Ml Oral.Susp) 30 ml PO Q6H PRN PRN Reason: Heartburn/Nausea Chlorpromazine HCl (Chlorpromazine Hcl 25 Mg Tablet) 50 mg PO Q6H PRN PRN Reason: severe agitation, psychosis Last Admin: 05/31/21 20:32 Dose: 50 mg Documented by: Hydroxyzine HCl (Hydroxyzine Hcl 25 Mg Tablet) 25 mg PO Q6H PRN PRN Reason: Anxiety Last Admin: 05/25/21 13:26 Dose: 25 mg Documented by: Magnesium Hydroxide (Milk Of Magnesia 30 Ml Oral.Susp) 30 ml PO DAILY PRN PRN Reason: Constipation Nicotine Polacrilex (Nicotine Polacrilex 2 Mg Gum) 4 mg BUCCAL Q2H PRN PRN Reason: Nicotine Cravings Olanzapine (Olanzapine 10 Mg Tablet) 20 mg PO BEDTIME KYLE Last Admin: 06/03/21 21:43 Dose: 20 mg Documented by: Propranolol HCl (Propranolol Hcl 10 Mg Tablet) 10 mg PO TID [facility]; Protocol Last Admin: 06/04/21 08:44 Dose: 10 mg Documented by: Sertraline HCl (Sertraline Hcl 50 Mg Tablet) 50 mg PO DAILY [facility] Last Admin: 06/04/21 08:45 Dose: 50 mg Documented by: Trazodone HCl (Trazodone Hcl 50 Mg Tablet) 50 mg PO BEDTIME PRN PRN Reason: Insomnia Last Admin: 05/30/21 20:45 Dose: 50 mg Documented by: Allergies Allergies Allergy/AdvReac Type Severity Reaction Status Date / Time Penicillins [PENICILLINS] Allergy Unknown RASH Verified 05/19/21 07:39 Assessment & Plan Assessment & Plan (1) Schizophrenia: Status: Acute Code(s): F20.9 - Schizophrenia, unspecified Assessment and Plan: DCed PO risperidone 05/22, started invega 6 mg at HS same day.? planned to start CHAPPELL 05/26. calls placed to [facility] prescriber, awaiting call back. appeared to suffer from akathisia 05/25 and was started on cogentin 1 TID.? describes akathisia with risperidone as well.? agrees to switch to zyprexa 10 mg as of? 05/26; relprevv later if pt tolerates PO zyprexa.? cogentin DCed 05/26. 05/27 start thorazine 50 mg Q6H PRN for agitation, anxiety. 05/28 start sertr genesis 50 mg QD for obsessional and ego-dystonic thoughts of harming others. Discussed clonidine/ prazosin for nightmares, however already on propranolol. 05/29: Increased zyprexa to 20 mg to target psychotic sx, as pt has been on 20 mg in the past and per chart he had some sx improvement on this dose. Will continue sertraline trial and monitor for activating SE or worsening psychosis. discharge to home once stabilized. 05/30/2021 Patient appears to be tolerating olanzapine sertraline trial not active headache decreased symptoms impulse control intact patient would benefit from long- acting injectable to not tolerated inVega 05/31/21 Pt seen in f/u cont ssri and olanzapine monitor safety to otyers 06/01/21 Pt withdrawn on sertraline zyprexa isolated ? denies harper ? PI no aggressive behavoir woulkd do better on chappell 06/03 planning to obtain relprevv from outside pharmacy. pt will consider his n earness to discharge readiness. 06/04 relprevv ordered from [place] [facility]. presentation status quo ante. I spent minutes with the patient and/or on the patient floor today, greater than?50% of which was spent counseling/coordinating care. Reason for contiued inpatient stay Substantial Risk for: inability to function and rapid decompensation
[2021-06-04 21:50] VITALS: BP 125/73; PULSE 104; RESP 18; TEMP 36.5; O2SAT 98
[2021-06-04] MEDS: OLANZapine 10 MG TABLET 20 MG PO (21:57)
[2021-06-05 08:30] VITALS: BP 116/63; PULSE 88; RESP 16; TEMP 36.4; O2SAT 96
[2021-06-05] MEDS: Propranolol HCL 10 MG TABLET PO ×3 (08:34→20:19)
[2021-06-05] MEDS: Sertraline HCL 50 MG TABLET PO (08:35)
[2021-06-05 10:50] VITALS: BMI 39.7
--- NOTE | 2021-06-05 16:47 | P.PNPSI_ITS ---
Subjective Subjective Date of Service: 06/05/21 Reason For Visit: Psychosis Interim History: no change in presentation from yesterday. relprevv program information reviewed and signed. per staff, franky. not attending groups. isolative to his room. denying Sx other than AH, but the are not like before. showered last night. Mental Status Exam Mental Status Exam Narrative: pt found resting in bed, easily rousable. appropriately dressed and groomed in street clothes. mild PMR. cooperative. speech soft and decreased in amount. nml rate, constricted prosody. thoughts linear and logical. affect blunted. endorses AH but states they are intermittent and less intense than prior to zyprexa. no SI/HI/VH expressed. Diagnostics Vital Signs (24Hr): Vital Signs - 24 hr 06/04/21 21:50 06/05/21 08:30 Temperature 97.7 F 97.6 F Pulse Rate 104 H 88 Respiratory Rate 18 16 Blood Pressure 125/73 116/63 Pulse Oximetry 98 96 BMI result Body Mass Index 39.7 Labs Results: 05/18/21 18:51 05/18/21 18:51 Medications Medications Current Medications Acetaminophen (Acetaminophen 325 Mg Tablet) 650 mg PO Q6H PRN PRN Reason: Headache/Pain Mild Scale (1-3) Al Hydroxide/Mg Hydroxide (Magnesium Hydrox/Alum Hydrox 30 Ml Oral.Susp) 30 ml PO Q6H PRN PRN Reason: Heartburn/Nausea Chlorpromazine HCl (Chlorpromazine Hcl 25 Mg Tablet) 50 mg PO Q6H PRN PRN Reason: severe agitation, psychosis Last Admin: 05/31/21 20:32 Dose: 50 mg Documented by: Hydroxyzine HCl (Hydroxyzine Hcl 25 Mg Tablet) 25 mg PO Q6H PRN PRN Reason: Anxiety Last Admin: 05/25/21 13:26 Dose: 25 mg Documented by: Magnesium Hydroxide (Milk Of Magnesia 30 Ml Oral.Susp) 30 ml PO DAILY PRN PRN Reason: Constipation Nicotine Polacrilex (Nicotine Polacrilex 2 Mg Gum) 4 mg BUCCAL Q2H PRN PRN Reason: Nicotine Cravings Olanzapine (Olanzapine 10 Mg Tablet) 20 mg PO BEDTIME KYLE Last Admin: 06/04/21 21:57 Dose: 20 mg Documented by: Propranolol HCl (Propranolol Hcl 10 Mg Tablet) 10 mg PO TID [facility]YLE; Protocol Last Admin: 06/05/21 15:55 Dose: 10 mg Documented by: Sertraline HCl (Sertraline Hcl 50 Mg Tablet) 50 mg PO DAILY [facility] Last Admin: 06/05/21 08:35 Dose: 50 mg Documented by: Trazodone HCl (Trazodone Hcl 50 Mg Tablet) 50 mg PO BEDTIME PRN PRN Reason: Insomnia Last Admin: 05/30/21 20:45 Dose: 50 mg Documented by: Allergies Allergies Allergy/AdvReac Type Severity Reaction Status Date / Time Penicillins [PENICILLINS] Allergy Unknown RASH Verified 05/19/21 07:39 Assessment & Plan Assessment & Plan (1) Schizophrenia: Status: Acute Code(s): F20.9 - Schizophrenia, unspecified Assessment and Plan: DCed PO risperidone 05/22, started invega 6 mg at HS same day.? planned to start CHAPPELL 05/26. calls placed to [facility] prescriber, awaiting call back. appeared to suffer from akathisia 05/25 and was started on cogentin 1 TID.? describes akathisia with risperidone as well.? agrees to switch to zyprexa 10 mg as of? 05/26; relprevv later if pt tolerates PO zyprexa.? cogentin DCed 05/26. 05/27 start thorazine 50 mg Q6H PRN for agitation, anxiety. 05/28 start se rtraline 50 mg QD for obsessional and ego-dystonic thoughts of harming others. Discussed clonidine/ prazosin for nightmares, however already on propranolol. 05/29: Increased zyprexa to 20 mg to target psychotic sx, as pt has been on 20 mg in the past and per chart he had some sx improvement on this dose. Will continue sertraline trial and monitor for activating SE or worsening psychosis. discharge to home once stabilized. 05/30/2021 Patient appears to be tolerating olanzapine sertraline trial not active headache decreased symptoms impulse control intact patient would benefit from long- acting injectable to not tolerated inVega 05/31/21 Pt seen in f/u cont ssri and olanzapine monitor safety to otyers 06/01/21 Pt withdrawn on sertraline zyprexa isolated ? denies harper ? PI no aggressive behavoir woulkd do better on chappell 06/03 planning to obtain relprevv from outside pharmacy. pt will consider his nearness to discharge readiness. 06/04 relprevv ordered from [place] [facility]. presentation status quo ante. 06/05 prescriber and patient registered with relprevv program. I spent minutes with the patient and/or on the patient floor today, greater than?50% of which was spent counseling/coordinating care. Reason for contiued inpatient stay Substantial Risk for: harm to others, inability to function and rapid decompensation
[2021-06-05 18:00] VITALS: BP 112/58; PULSE 88; RESP 14; TEMP 36.5; O2SAT 97
[2021-06-05] MEDS: OLANZapine 10 MG TABLET 20 MG PO (20:19)
[2021-06-06 09:52] VITALS: BP 112/70; PULSE 97; RESP 16; TEMP 36.6; O2SAT 96
[2021-06-06] MEDS: Sertraline HCL 50 MG TABLET PO (10:02)
[2021-06-06] MEDS: Propranolol HCL 10 MG TABLET PO ×3 (10:02→21:09)
--- NOTE | 2021-06-06 15:10 | HO.PSYCHPN ---
Subjective Subjective Date of Service: 06/06/21 Reason For Visit: Psychosis Interim History: no change in presentation from yesterday. awaiting relprevv delivery from [facility]. no complaints or requests. per staff, not attending groups. guarded. no anx/dep/SI/HI. isolative, safe. eating and sleeping well. Mental Status Exam Mental Status Exam Narrative: pt found resting in bed, easily rousable. appropriately dressed and groomed in street clothes. mild PMR. cooperative. speech soft and decreased in amount. nml rate, constricted prosody. thoughts linear and logical. affect blunted. endorses AH but states they are intermittent and less intense than prior to zyprexa. no SI/HI/VH expressed. Diagnostics Vital Signs (24Hr): Vital Signs - 24 hr 06/05/21 18:00 06/06/21 09:52 Temperature 97.7 F 97.9 F Pulse Rate 88 97 Respiratory Rate 14 16 Blood Pressure 112/58 L 112/70 Pulse Oximetry 97 96 BMI result Body Mass Index 39.7 Labs Results: 05/18/21 18:51 05/18/21 18:51 Medications Medications Current Medications Acetaminophen (Acetaminophen 325 Mg Tablet) 650 mg PO Q6H PRN PRN Reason: Headache/Pain Mild Scale (1-3) Al Hydroxide/Mg Hydroxide (Magnesium Hydrox/Alum Hydrox 30 Ml Oral.Susp) 30 ml PO Q6H PRN PRN Reason: Heartburn/Nausea Chlorpromazine HCl (Chlorpromazine Hcl 25 Mg Tablet) 50 mg PO Q6H PRN PRN Reason: severe agitation, psychosis Last Admin: 05/31/21 20:32 Dose: 50 mg Documented by: Hydroxyzine HCl (Hydroxyzine Hcl 25 Mg Tablet) 25 mg PO Q6H PRN PRN Reason: Anxiety Last Admin: 05/25/21 13:26 Dose: 25 mg Documented by: Magnesium Hydroxide (Milk Of Magnesia 30 Ml Oral.Susp) 30 ml PO DAILY PRN PRN Reason: Constipation Nicotine Polacrilex (Nicotine Polacrilex 2 Mg Gum) 4 mg BUCCAL Q2H PRN PRN Reason: Nicotine Cravings Olanzapine (Olanzapine 10 Mg Tablet) 20 mg PO BEDTIME KYLE Last Admin: 06/05/21 20:19 Dose: 20 mg Documented by: Propranolol HCl (Propranolol Hcl 10 Mg Tablet) 10 mg PO TID KYLE; Protocol Last Admin: 06/06/21 10:02 Dose: 10 mg Documented by: Sertraline HCl (Sertraline Hcl 50 Mg Tablet) 50 mg PO DAILY [facility] Last Admin: 06/06/21 10:02 Dose: 50 mg Documented by: Trazodone HCl (Trazodone Hcl 50 Mg Tablet) 50 mg PO BEDTIME PRN PRN Reason: Insomnia Last Admin: 05/30/21 20:45 Dose: 50 mg Documented by: Allergies Allergies Allergy/AdvReac Type Severity Reaction Status Date / Time Penicillins [PENICILLINS] Allergy Unknown RASH Verified 05/19/21 07:39 Assessment & Plan Assessment & Plan (1) Schizophrenia: Status: Acute Code(s): F20.9 - Schizophrenia, unspecified Assessment and Plan: DCed PO risperidone 05/22, started invega 6 mg at HS same day.? planned to start CHAPPELL 05/26. calls placed to [facility] prescriber, awaiting call back. appeared to suffer from akathisia 05/25 and was started on cogentin 1 TID.? describes akathisia with risperidone as well.? agrees to switch to zyprexa 10 mg as of? 05/26; relprevv later if pt tolerates PO zyprexa.? cogentin DCed 05/26. 05/27 start thorazine 50 mg Q6H PRN for agitation, anxiety. 05/28 start sertraline 50 mg QD for obsessional and ego-dystonic thoughts of harming others. Discussed clonidine/ prazosin for nightmares, however already on propranolol. 05/29: Increased zyprexa to 20 mg to target psychotic sx, as pt has been on 20 mg in the past and per chart he had some sx improvement on this dose. Will continue sertraline trial and monitor for activating SE or worsening psychosis. discharge to home once stabilized. 05/30/2021 Patient appears to be tolerating olanzapine sertraline trial not active headache decreased symptoms impulse control intact patient would benefit from long-acting injectable to not tolerated inVega 05/31/21 Pt seen in f/u cont ssri and olanzapine monitor safety to otyers 06/01/21 Pt withdrawn on sertraline zyprexa isolated ? denies harper ? PI no aggressive behavoir woulkd do better on chappell 1/4 planning to obtain relprevv from outside pharmacy. pt will consider his nearness to discharge readiness. 06/04 relprevv ordered from [facility] [facility]. presentation status quo ante. 06/05 prescriber and patient registered with relprevv program. 06/06 awaiting relprevv shot from pharmacy. some concern we will not be able to find someone to administer the shot once pt is discharged. n ochange in presentation. I spent minutes with the patient and/or on the patient floor today, greater than?50% of which was spent counseling/coordinating care. Reason for contiued inpatient stay Substantial Risk for: harm to others, inability to function and rapid decompensation
[2021-06-06 15:44] VITALS: BP 128/64; PULSE 97
[2021-06-06] MEDS: OLANZapine 10 MG TABLET 20 MG PO (21:09)
[2021-06-06 21:11] VITALS: BP 121/70; PULSE 99; TEMP 36.3; O2SAT 96
[2021-06-07 10:28] VITALS: BP 132/74; PULSE 102; RESP 16; TEMP 36.6; O2SAT 95
[2021-06-07] MEDS: Sertraline HCL 50 MG TABLET PO (10:35)
[2021-06-07] MEDS: Propranolol HCL 10 MG TABLET PO ×3 (10:35→21:34)
[2021-06-07 15:48] VITALS: BP 117/68; PULSE 97
--- NOTE | 2021-06-07 18:57 | P.PNPSI_ITS ---
Subjective Subjective Date of Service: 06/07/21 Reason For Visit: Psychosis Interim History: no change in presentation from yesterday.? accepts that we will not be able to proceed with relprevv due to lack of any location which would be able to administer the shot outpatient. rather than switch to abilify pt opts to take zyprexa in the morning, as he believes he would remember to take it if he were scheduled to take it in the morning. no complaints or requests.? per staff, not attending groups.? pleasant.? isolative, safe.? eating and sleeping well. Mental Status Exam Mental Status Exam Narrative: pt found resting in bed, easily rousable. appropriately dressed and groomed in street clothes. mild PMR. cooperative. speech soft and decreased in amount. nml rate, constricted prosody. thoughts linear and logical. affect blunted. endorses AH but states they are intermittent and less intense than prior to zyprexa. no SI/HI/VH expressed. Diagnostics Vital Signs (24Hr): Vital Signs - 24 hr 06/06/21 21:11 06/07/21 10:28 06/07/21 15:48 Temperature 97.4 F 97.8 F Pulse Rate 99 102 H 97 Respiratory Rate 16 Blood Pressure 121/70 132/74 117/68 Pulse Oximetry 96 95 BMI result Body Mass Index 39.7 Labs Results: 05/18/21 18:51 05/18/21 18:51 Medications Medications Current Medications Acetaminophen (Acetaminophen 325 Mg Tablet) 650 mg PO Q6H PRN PRN Reason: Headache/Pain Mild Scale (1-3) Al Hydroxide/Mg Hydroxide (Magnesium Hydrox/Alum Hydrox 30 Ml Oral.Susp) 30 ml PO Q6H PRN PRN Reason: Heartburn/Nausea Chlorpromazine HCl (Chlorpromazine Hcl 25 Mg Tablet) 50 mg PO Q6H PRN PRN Reason: severe agitation, psychosis Last Admin: 05/31/21 20:32 Dose: 50 mg Documented by: Hydroxyzine HCl (Hydroxyzine Hcl 25 Mg Tablet) 25 mg PO Q6H PRN PRN Reason: Anxiety Last Admin: 05/25/21 13:26 Dose: 25 mg Documented by: Magnesium Hydroxide (Milk Of Magnesia 30 Ml Oral.Susp) 30 ml PO DAILY PRN PRN Reason: Constipation Nicotine Polacrilex (Nicotine Polacrilex 2 Mg Gum) 4 mg BUCCAL Q2H PRN PRN Reason: Nicotine Cravings Olanzapine (Olanzapine 10 Mg Tablet) 20 mg PO DAILY [facility] Propranolol HCl (Propranolol Hcl 10 Mg Tablet) 10 mg PO TID [facility]YLE; Protocol Last Admin: 06/07/21 15:52 Dose: 10 mg Documented by: Sertraline HCl (Sertraline Hcl 50 Mg Tablet) 50 mg PO DAILY [facility] Last Admin: 06/07/21 10:35 Dose: 50 mg Documented by: Trazodone HCl (Trazodone Hcl 50 Mg Tablet) 50 mg PO BEDTIME PRN PRN Reason: Insomnia Last Admin: 05/30/21 20:45 Dose: 50 mg Documented by: Allergies Allergies Allergy/AdvReac Type Severity Reaction Status Date / Time Penicillins [PENICILLINS] Allergy Unknown RASH Verified 05/19/21 07:39 Assessment & Plan Assessment & Plan (1) Schizophrenia: Status: Acute Code(s): F20.9 - Schizophrenia, unspecified Assessment and Plan: DCed PO risperidone 05/22, started invega 6 mg at HS same day.? planned to start CHAPPELL 05/26. calls placed to [facility] prescriber, awaiting call back. appeared to suffer from akathisia 05/25 and was started on cogentin 1 TID.? describes akathisia with risperidone as well.? agrees to switch to zyprexa 10 mg as of? 05/26; relprevv later if pt tolerates PO zyprexa.? cogentin DCed 05/26. 05/27 start thorazine 50 mg Q6H PRN for agitation, anxiety. 05/28 start sertraline 50 mg QD for obsessional and ego-dystonic thoughts of harming others. Discussed clonidine/ prazosin for nightmares, however already on propranolol. 05/29: Increased zyprexa to 20 mg to target psychotic sx, as pt has been on 20 mg in the past and per chart he had some sx improvement on this dose. Will continue sertraline trial and monitor for activating SE or worsening psychosis. discharge to home once stabilized. 05/30/2021 Patient appears to be tolerating olanzapine sertraline trial not active headache decreased symptoms impulse control intact patient would benefit from long- acting injectable to not tolerated inVega 05/31/21 Pt seen in f/u cont ssri and olanzapine monitor safety to otyers 06/01/21 Pt withdrawn on sertraline zyprexa isolated ? denies harper ? PI no aggressive behavoir woulkd do better on chappell 06/03 planning to obtain relprevv from outside pharmacy. pt will consider his nearne ss to discharge readiness. 06/04 relprevv ordered from [facility]. presentation status quo ante. 06/05 prescriber and patient registered with relprevv program. 06/06 awaiting relprevv shot from pharmacy. some concern we will not be able to find someone to administer the shot once pt is discharged. no change in presentation. 06/07 pt to continue on PO meds as relprevv does not appear to be a viable option due to lack of anywhere he might have it administered after discharge. I spent minutes with the patient and/or on the patient floor today, greater than?50% of which was spent counseling/coordinating care. Reason for contiued inpatient stay Substantial Risk for: harm to others, inability to function and rapid decompensation
[2021-06-07 21:34] VITALS: BP 116/62; PULSE 101; TEMP 36.7; O2SAT 97
[2021-06-07] MEDS: traZODone HCL 50 MG TABLET PO (23:43)
[2021-06-08 09:28] VITALS: BP 122/73; PULSE 90; RESP 16; TEMP 36.4; O2SAT 97
[2021-06-08] MEDS: Sertraline HCL 50 MG TABLET PO (09:31)
[2021-06-08] MEDS: OLANZapine 10 MG TABLET 20 MG PO (09:31)
[2021-06-08] MEDS: Propranolol HCL 10 MG TABLET PO ×3 (09:31→21:26)
[2021-06-08 16:08] VITALS: BP 117/71; PULSE 95
--- NOTE | 2021-06-08 18:11 | P.PNPSI_ITS ---
Subjective Subjective Date of Service: 06/08/21 Reason For Visit: Psychosis Interim History: no change in presentation from yesterday.? accepts that we will not be able to proceed with relprevv due to lack of any location which would be able to administer the shot outpatient.? zyprexa in the morning made him a bit groggy today, but he prefers to take it this way. did noty sleep well last night so trazodone will be increased. per staff, isolative. out of his room for food and meds only. minimal AH. DFA last NOC. Mental Status Exam Mental Status Exam Narrative: pt found resting in bed, easily rousable. appropriately dressed and groomed in street clothes. mild PMR. cooperative. speech soft and decreased in amount. nml rate, constricted prosody. thoughts linear and logical. affect blunted. endorses AH but states they are intermittent and less intense than prior to zyprexa. no SI/HI/VH expressed. Diagnostics Vital Signs (24Hr): Vital Signs - 24 hr 06/07/21 21:34 06/08/21 09:28 06/08/21 16:08 Temperature 98.0 F 97.6 F Pulse Rate 101 H 90 95 Respiratory Rate 16 Blood Pressure 116/62 122/73 117/71 Pulse Oximetry 97 97 BMI result Body Mass Index 39.7 Labs Results: 05/18/21 18:51 05/18/21 18:51 Medications Medications Current Medications Acetaminophen (Acetaminophen 325 Mg Tablet) 650 mg PO Q6H PRN PRN Reason: Headache/Pain Mild Scale (1-3) Al Hydroxide/Mg Hydroxide (Magnesium Hydrox/Alum Hydrox 30 Ml Oral.Susp) 30 ml PO Q6H PRN PRN Reason: Heartburn/Nausea Chlorpromazine HCl (Chlorpromazine Hcl 25 Mg Tablet) 50 mg PO Q6H PRN PRN Reason: severe agitation, psychosis Last Admin: 05/31/21 20:32 Dose: 50 mg Documented by: Hydroxyzine HCl (Hydroxyzine Hcl 25 Mg Tablet) 25 mg PO Q6H PRN PRN Reason: Anxiety Last Admin: 05/25/21 13:26 Dose: 25 mg Documented by: Magnesium Hydroxide (Milk Of Magnesia 30 Ml Oral.Susp) 30 ml PO DAILY PRN PRN Reason: Constipation Nicotine Polacrilex (Nicotine Polacrilex 2 Mg Gum) 4 mg BUCCAL Q2H PRN PRN Reason: Nicotine Cravings Olanzapine (Olanzapine 10 Mg Tablet) 20 mg PO DAILY [facility] Last Admin: 06/08/21 09:31 Dose: 20 mg Documented by: Propranolol HCl (Propranolol Hcl 10 Mg Tablet) 10 mg PO TID [facility]; Protocol Last Admin: 06/08/21 16:16 Dose: 10 mg Documented by: Sertraline HCl (Sertraline Hcl 50 Mg Tablet) 50 mg PO DAILY [facility] Last Admin: 06/08/21 09:31 Dose: 50 mg Documented by: Trazodone HCl (Trazodone Hcl 50 Mg Tablet) 50 mg PO BEDTIME PRN PRN Reason: Insomnia Last Admin: 06/07/21 23:43 Dose: 50 mg Documented by: Allergies Allergies Allergy/AdvReac Type Severity Reaction Status Date / Time Penicillins [PENICILLINS] Allergy Unknown RASH Verified 05/19/21 07:39 Assessment & Plan Assessment & Plan (1) Schizophrenia: Status: Acute Code(s): F20.9 - Schizophrenia, unspecified Assessment and Plan: DCed PO risperidone 05/22, started invega 6 mg at HS same day.? planned to start CHAPPELL 05/26. calls placed to [facility] prescriber, awaiting call back. appeared to suffer from akathisia 05/25 and was started on cogentin 1 TID.? describes akathisia with risperidone as well.? agrees to switch to zyprexa 10 mg as of? 05/26; relprevv later if pt tolerates PO zyprexa.? cogentin DCed 05/26. 05/27 start thorazine 50 mg Q6H PRN for agitation, anxiety. 05/28 start sertraline 50 mg QD for obsessional and ego-dystonic thoughts of harming others. Discussed clonidine/ prazosin for nightmares, however already on propranolol. 05/29: Increased zyprexa to 20 mg to target psychotic sx, as pt has been on 20 mg in the past and per chart he had some sx improvement on this dose. Will continue sertraline trial and monitor for activating SE or worsening psychosis. discharge to home once stabilized. 05/30/2021 Patient appears to be tolerating olanzapine sertraline trial not active headache decreased symptoms impulse control intact patient would benefit from long- acting injectable to not tolerated inVega 1/1/22 Pt seen in f/u cont ssri and olanzapine monitor safety to otyers 06/01/21 Pt withdrawn on sertraline zyprexa isolated ? denies harper ? PI no aggressive behavoir woulkd do better on chappell 06/03 planning to obtain relprevv from outside pharmacy. pt will consider his nearness to discharge readiness. 06/04 relprevv ordered from [place] [facility]. presentation status quo ante. 06/05 prescriber and patient registered with relprevv program. 06/06 awaiting relprevv shot from pharmacy. some concern we will not be able to find someone to administer the shot once pt is discharged. no change in presentation. 06/07 pt to continue on PO meds as relprevv does not appear to be a viable option due to lack of anywhere he might have it administered after discharge. 06/08 increase trazodone available at HS. I spent minutes with the patient and/or on the patient floor today, greater than?50% of which was spent counseling/coordinating care. Reason for contiued inpatient stay Substantial Risk for: harm to others, inability to function and rapid decompensation
[2021-06-08 21:25] VITALS: BP 117/66; PULSE 102; RESP 18; TEMP 36.5; O2SAT 97
[2021-06-08] MEDS: traZODone HCL 100 MG TABLET PO (21:26)
[2021-06-09 08:03] VITALS: BP 126/73; PULSE 120; TEMP 36.6; O2SAT 97
[2021-06-09] MEDS: Sertraline HCL 50 MG TABLET PO (09:40)
[2021-06-09] MEDS: OLANZapine 10 MG TABLET 20 MG PO (09:40)
[2021-06-09] MEDS: Propranolol HCL 10 MG TABLET PO ×3 (09:40→22:10)
--- NOTE | 2021-06-09 14:56 | P.PNPSI_ITS ---
Subjective Subjective Date of Service: 06/09/21 Reason For Visit: Psychosis Interim History: no change in presentation from yesterday.? accepts that we will not be able to proceed with relprevv due to lack of any location which would be able to administer the shot outpatient. slept better last night on trazodone 100, up from 50 the night prior. declines further escalation in trazodone dosing. per staff, isolative. out for meds only. guarded. no SI/HI/dep/anx. engageable. slept about 6 hours overnight. Mental Status Exam Mental Status Exam Narrative: pt found resting in bed, easily rousable. appropriately dressed and groomed in street clothes. mild PMR. cooperative. speech soft and decreased in amount. nml rate, constricted prosody. thoughts linear and logical. affect blunted. endorses AH but states they are intermittent and less intense than prior to zyprexa. no SI/HI/VH expressed. Diagnostics Vital Signs (24Hr): Vital Signs - 24 hr 06/08/21 16:08 06/08/21 21:25 06/09/21 08:03 Temperature 97.7 F 97.8 F Pulse Rate 95 102 H 120 H Respiratory Rate 18 Blood Pressure 117/71 117/66 126/73 Pulse Oximetry 97 97 BMI result Body Mass Index 39.7 Labs Results: 05/18/21 18:51 05/18/21 18:51 Medications Medications Current Medications Acetaminophen (Acetaminophen 325 Mg Tablet) 650 mg PO Q6H PRN PRN Reason: Headache/Pain Mild Scale (1-3) Al Hydroxide/Mg Hydroxide (Magnesium Hydrox/Alum Hydrox 30 Ml Oral.Susp) 30 ml PO Q6H PRN PRN Reason: Heartburn/Nausea Chlorpromazine HCl (Chlorpromazine Hcl 25 Mg Tablet) 50 mg PO Q6H PRN PRN Reason: severe agitation, psychosis Last Admin: 05/31/21 20:32 Dose: 50 mg Documented by: Hydroxyzine HCl (Hydroxyzine Hcl 25 Mg Tablet) 25 mg PO Q6H PRN PRN Reason: Anxiety Last Admin: 05/25/21 13:26 Dose: 25 mg Documented by: Magnesium Hydroxide (Milk Of Magnesia 30 Ml Oral.Susp) 30 ml PO DAILY PRN PRN Reason: Constipation Nicotine Polacrilex (Nicotine Polacrilex 2 Mg Gum) 4 mg BUCCAL Q2H PRN PRN Reason: Nicotine Cravings Olanzapine (Olanzapine 10 Mg Tablet) 20 mg PO DAILY [facility] Last Admin: 06/09/21 09:40 Dose: 20 mg Documented by: Propranolol HCl (Propranolol Hcl 10 Mg Tablet) 10 mg PO TID [facility]; Protocol Last Admin: 06/09/21 09:40 Dose: 10 mg Documented by: Sertraline HCl (Sertraline Hcl 50 Mg Tablet) 50 mg PO DAILY [facility] Last Admin: 06/09/21 09:40 Dose: 50 mg Documented by: Trazodone HCl (Trazodone Hcl 100 Mg Tablet) 100 mg PO BEDTIME PRN PRN Reason: Insomnia Last Admin: 06/08/21 21:26 Dose: 100 mg Documented by: Allergies Allergies Allergy/AdvReac Type Severity Reaction Status Date / Time Penicillins [PENICILLINS] Allergy Unknown RASH Verified 05/19/21 07:39 Assessment & Plan Assessment & Plan (1) Schizophrenia: Status: Acute Code(s): F20.9 - Schizophrenia, unspecified Assessment and Plan: DCed PO risperidone 05/22, started invega 6 mg at HS same day.? planned to start CHAPPELL 05/26. calls placed to [facility] prescriber, awaiting call back. appeared to suffer from akathisia 05/25 and was started on cogentin 1 TID.? describes akathisia with risperidone as well.? agrees to switch to zyprexa 10 mg as of? 05/26; relprevv later if pt tolerates PO zyprexa.? cogentin DCed 05/26. 05/27 start thorazine 50 mg Q6H PRN for agitation, anxiety. 05/28 start sertraline 50 mg QD for obsessional and ego-dystonic thoughts of harming others. Discussed clonidine/ prazosin for nightmares, however already on propranolol. 05/29: Increased zyprexa to 20 mg to target psychotic sx, as pt has been on 20 mg in the past and per chart he had some sx improvement on this dose. Will continue sertraline trial and monitor for activating SE or worsening psychosis. discharge to home once stabilized. 05/30/2021 Patient appears to be tolerating olanzapine sertraline trial not active headache decreased symptoms impulse control intact patient would benefit from long- acting injectable to not tolerated inVega 05/31/21 Pt seen in f/u cont ssri and olanzapine monitor safety to otyers 06/01/21 Pt withdrawn on sertraline zyprexa isolated ? denies harper ? PI no aggressive behavoir woulkd do better on chappell 06/03 planning to obtain relprevv from outside pharmacy. pt will consider his nearness to discharge readiness. 06/04 relprevv ordered from [facility]. presentation status quo ante. 06/05 prescriber and patient registered with relprevv program. 06/06 awaiting relprevv shot from pharmacy. some concern we will not be able to find someone to administer the shot once pt is discharged. no change in presentation. 06/07 pt to continue on PO meds as relprevv does not appear to be a viable option due to lack of anywhere he might have it administered after discharge. 06/08 increase trazodone available at HS. 06/09 slept better lazst night. planning for 06/11 discharge. I spent minutes with the patient and/or on the patient floor today, g reater than?50% of which was spent counseling/coordinating care. Reason for contiued inpatient stay Substantial Risk for: rapid decompensation
[2021-06-09] MEDS: traZODone HCL 100 MG TABLET PO (22:10)
[2021-06-09 22:12] VITALS: BP 114/61; PULSE 97; RESP 16; TEMP 36.7; O2SAT 97
[2021-06-10 08:25] VITALS: BP 110/68; PULSE 93; RESP 16; TEMP 36.7; O2SAT 94
[2021-06-10] MEDS: Propranolol HCL 10 MG TABLET PO ×3 (08:27→20:32)
[2021-06-10] MEDS: OLANZapine 10 MG TABLET 20 MG PO (08:27)
[2021-06-10] MEDS: Sertraline HCL 50 MG TABLET PO (08:28)
--- NOTE | 2021-06-10 14:30 | P.PNPSI_ITS ---
Subjective Subjective Date of Service: 06/10/21 Reason For Visit: Psychosis Interim History: no change in presentation from yesterday.? accepts that we will not be able to proceed with relprevv due to lack of any location which would be able to administer the shot outpatient.? slept adequately last night on trazodone 100, up from 50 earlier in the stay.? declines further escalation in trazodone dosing.? per staff, isolative.? out for meds only.? guarded.? no SI/HI/dep/anx.? engageable. Mental Status Exam Mental Status Exam Narrative: pt found resting in bed, easily rousable. appropriately dressed and groomed in street clothes. mild PMR. cooperative. speech soft and decreased in amount. nml rate, constricted prosody. thoughts linear and logical. affect blunted. endorses AH but states they are intermittent and less intense than prior to zyprexa. no SI/HI/VH expressed. Diagnostics Vital Signs (24Hr): Vital Signs - 24 hr 06/09/21 22:12 06/10/21 08:25 Temperature 98.1 F 98.0 F Pulse Rate 97 93 Respiratory Rate 16 16 Blood Pressure 114/61 110/68 Pulse Oximetry 97 94 BMI result Body Mass Index 39.7 Labs Results: 05/18/21 18:51 05/18/21 18:51 Medications Medications Current Medications Acetaminophen (Acetaminophen 325 Mg Tablet) 650 mg PO Q6H PRN PRN Reason: Headache/Pain Mild Scale (1-3) Al Hydroxide/Mg Hydroxide (Magnesium Hydrox/Alum Hydrox 30 Ml Oral.Susp) 30 ml PO Q6H PRN PRN Reason: Heartburn/Nausea Chlorpromazine HCl (Chlorpromazine Hcl 25 Mg Tablet) 50 mg PO Q6H PRN PRN Reason: severe agitation, psychosis Last Admin: 05/31/21 20:32 Dose: 50 mg Documented by: Hydroxyzine HCl (Hydroxyzine Hcl 25 Mg Tablet) 25 mg PO Q6H PRN PRN Reason: Anxiety Last Admin: 05/25/21 13:26 Dose: 25 mg Documented by: Magnesium Hydroxide (Milk Of Magnesia 30 Ml Oral.Susp) 30 ml PO DAILY PRN PRN Reason: Constipation Nicotine Polacrilex (Nicotine Polacrilex 2 Mg Gum) 4 mg BUCCAL Q2H PRN PRN Reason: Nicotine Cravings Olanzapine (Olanzapine 10 Mg Tablet) 20 mg PO DAILY [facility] Last Admin: 06/10/21 08:27 Dose: 20 mg Documented by: Propranolol HCl (Propranolol Hcl 10 Mg Tablet) 10 mg PO TID [facility]; Protocol Last Admin: 06/10/21 14:28 Dose: 10 mg Documented by: Sertraline HCl (Sertraline Hcl 50 Mg Tablet) 50 mg PO DAILY [facility] Last Admin: 06/10/21 08:28 Dose: 50 mg Documented by: Trazodone HCl (Trazodone Hcl 100 Mg Tablet) 100 mg PO BEDTIME PRN PRN Reason: Insomnia Last Admin: 06/09/21 22:10 Dose: 100 mg Documented by: Allergies Allergies Allergy/AdvReac Type Severity Reaction Status Date / Time Penicillins [PENICILLINS] Allergy Unknown RASH Verified 05/19/21 07:39 Assessment & Plan Assessment & Plan (1) Schizophrenia: Status: Acute Code(s): F20.9 - Schizophrenia, unspecified Assessment and Plan: DCed PO risperidone 05/22, started invega 6 mg at HS same day.? planned to start CHAPPELL 05/26. calls placed to [facility] prescriber, awaiting call back. appeared to suffer from akathisia 05/25 and was started on cogentin 1 TID.? describes akathisia with risperidone as well.? agrees to switch to zyprexa 10 mg as of? 05/26; relprevv later if pt tolerates PO zyprexa.? cogentin DCed 05/26. 05/27 start thorazine 50 mg Q6H PRN for agitation, anxiety. 05/28 start sertraline 50 mg QD for obsessional and ego-dystonic thoughts of harming others. Discussed clonidine/ prazosin for nightmares, however already on propranolol. 05/29: Increased zyprexa to 20 mg to target psychotic sx, as pt has been on 20 mg in the past and per chart he had some sx improvement on this dose. Will continue sertraline trial and monitor for activating SE or worsening psychosis. discharge to home once stabilized. 05/30/2021 Patient appears to be tolerating olanzapine sertraline trial not active headache decreased symptoms impulse control intact patient would benefit from long- acting injectable to not tolerated inVega 05/31/21 Pt seen in f/u cont ssri and olanzapine monitor safety to otyers 06/01/21 Pt withdrawn on sertraline zyprexa isolated ? denies harper ? PI no aggressive behavoir woulkd do better on chappell 06/03 planning to obtain relprevv from outside pharmacy. pt will consider his nearness to discharge readiness. 06/04 relprevv ordered from [facility]. presentation status quo ante. 06/05 prescriber and patient registered with relprevv program. 06/06 awaiting relprevv shot from pharmacy. some concern we will not be able to find someone to administer the shot once pt is discharged. no change in presentation. 06/07 pt to continue on PO meds as relprevv does not appear to be a viable option due to lack of anywhere he might have it administered after discharge. 06/08 increase trazodone available at HS. 06/09 slept better last night. planning for 06/11 discharge. I spent minutes with the patient and/or on the patient floor today, greater than?50% of which was spent counseling/coordinating care. Reason for contiued inpatient stay Substantial Risk for: inability to function and rapid decompensation
[2021-06-10 18:00] VITALS: BP 119/59; PULSE 108; RESP 16; TEMP 36.4; O2SAT 96
[2021-06-10 21:00] VITALS: BP 119/67; PULSE 101
[2021-06-11] MEDS: Propranolol HCL 10 MG TABLET PO (08:16)
[2021-06-11] MEDS: OLANZapine 10 MG TABLET 20 MG PO (08:16)
[2021-06-11] MEDS: Sertraline HCL 50 MG TABLET PO (08:16)
[2021-06-11 08:30] VITALS: BP 114/60; PULSE 89; RESP 16; TEMP 36.3; O2SAT 98
--- NOTE | 2021-06-11 11:42 | PM.PSYDC ---
DS: Providers Provider Date of Service: 06/11/21 Date of admission: 05/19/21 13:35 Primary care physician: Oneil Morton MD DS: Diagnosis Discharge Diagnosis (1) Schizophrenia: Status: Acute DS: Medications Discharge Medications Home Medications: Home Medications Medication Instructions Recorded Confirmed propranolol 10 mg tablet 1 tab PO TID 05/18/21 05/18/21 Previous Rx's Medication Instructions Recorded olanzapine 10 mg tablet 20 mg PO DAILY 30 Days #60 tab 06/11/21 sertraline 50 mg tablet 50 mg PO DAILY 30 Days #30 tab 06/11/21 Mental Status Exam Mental Status Exam Narrative: pt found resting in bed, easily rousable. appropriately dressed and groomed in street clothes. mild PMR. cooperative. speech soft and decreased in amount. nml rate, constricted prosody. thoughts linear and logical. affect blunted. endorses AH but states they are intermittent and less intense than prior to zyprexa, most recently heard yesterday. no SI/HI/VH.. DS: Summary Hospital Course Hospital Course: per David 05/20 admission note: per pt, he used to take the risperdal consta shot but has not taken it in a while due patrick an adverse reaction to the injection; he describes bloody pustules having formed on his skin at various sites.? he has since been prescribed PO risperidone but is not generally compliant with it.? he is willing to try another WONG.? he recently had a recrudescence of his symptoms of psychosis, such as thought insertion, CAH to perform inappropriate touching.? he was brought to [facility] by his family members, with whom he lives.? on interview with MD, pt supports the history as written above and is open to MD discussing his case with his outpt prescriber to determine next steps. Past Psychiatric History: h/o schizophrenia.? multiple hospitalizations.? seen at [facility] [place]. h/o medication non-compliance. ? no documented h/o SA/SIB/HIB. Medical Evaluation Reviewed: Yes [facility] Family History: reportedly there is a FH of mental illness and ASHANTI. Social History: [place] and [place] at 6 [place].? one of three kids.? sibs spent some time in foster care when he was 4 yo and then reunited a few years later.? mother is and remarried.? pt lives with his father.? single, never , no children.? receives SSI income. Substance History: daily use of cannabis. denies use of other substances. Trauma History: alluded to childhood H/O trauma, has not specified. 05/22: pt seen in his room, found resting in bed.? appeared to have been awake.? reports that AH come and go daily.? 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 will DC risperidone 3 mg at bedtime and start paliperidone 6 mg tonight.? no other complaints or requests.? per staff, spent most of yesterday in bed.? denied AH early in day but then endorsed to staff later in day.? pleasant. 05/25: This afternoon I was called by the nurse with ligia to Julio being ou of his room, more anxious, pacing and called security to come and kill me . We put him on 5'checks and added Cogentin 1 mg TID, Ativan 1 mg stat and 0.5 mg Q6 PRN. 05/26: pt found seated in common area reading a book.? calm and cooperative.? describes long-standing akathisia, which he believes is my ADHD. ? after some discussion about antipsychotics available as WONG and the apparent need to try one of lower potency than risperidone or paliperidone, pt decides to try zyprexa, which he has been on in the past.? abilify was the other tenable option.? haldol and fluphenazine were judged too potent.? pt will DC paliperidone tonight and start zyprexa.? per staff, pt had a difficult day yesterday.? dep/anx recently.? lots of pacing.? said he wanted to leave, then banging on exit doors.? secutroy came up and he asked them to kill him.? ativan and cogentin were ultimately helpful and pt was subsequently scheduled cogentin 1 mg TID.? Q5 min checks now. 05/27: Patient seen and discussed with team. Reportedly pt had incident over weekend of yelling, banging on door of unit. Patient evaluated this morning and upon interview pt reports he is feeling better from the weekend. Tolerating zyprexa 10 mg QHS. Says sleep and appetite are good. Thinks AH are getting better, but says the voices are always there. Feels safe at the hospital. Pt continues to perseverate on feeling scared of hurting somebody or myself and says he feels like I should locked in a room or put to sleep, as he worries that he will harm others and I dont wanna do anything crazy. It appears thoughts of harming self or others is egodystonic and are distressing for pt, denies wanting to harm self or others. Denies SIB or assaultive behaviors. Pt reports he took Haldol once but it was discontinued due to possible dystonic reaction, my neck was turning, something was hurting me. Denies command hallucinations. In the milieu, patient is withdrawn but has been appropriate in behavior. Denies SI/SIB/HI upon inquiry. Denies irritability. Says he feels safe. 05/28: Patient evaluated this morning and upon interview he reports he feels calmer, and my body is a little more numb and relaxed. However, says his thoughts of harming others are still the same. Denies AH, endorses hearing his own voice in his head that insists that i should do what i said yesterday, i.e. put myself to sleep. Says he feels like dying, but then says I dont feel like dying but feels he would be better off to be than to act on these things. Denies assaultive ideation to a particular person, could be anybody, but does feel triggered if someone annoys him. Denies VH or having visions of harming others, describes thoughts more as urges to punch or hit others or run outta here. Sleep is good. Mood is good. Denies feeling depressed or anxious. Denies feeling angry or irritable. Says his thoughts bother him when i dont have anything to do. Says he feels hopeless because I feel like its gonna get worse, its not gonna get fixed. 05/29: Patient evaluated this morning and upon interview he reports his thoughts are still the same. Sleep is good. Denies benefit on zyprexa, I dont think the pills do anything, its just my head. Has been on zyprexa 20 mg in the past but denies noticing benefit, although may not be accurate historian. Says he has not utilized thorazine PRN, I forget these things a lot, I cant keep up with anything. Denies anger or anxiety. Says the only thing im thinking is I want to look for a roving tester laboratory, says he wants to be put to sleep because he doesnt want to keep dealing with my head. Says he doesnt wanna go back home like this. Reports he has nightmares of harming people, running, screaming, and fighting. Says he is worried about punching or pushing people. Thoughts appear ego-dystonic and bother him. Pt is frustrated, says nothing changes on medication and the thoughts come back and medication just keeps me calm. Denies past trials on serotonergic medication, does not think he has been on an SSRI. Says walking and staying busy helps distract him from his thoughts. Denies hx of manic or hypomanic episodes. Energy is usually low. 06/02: Pt reports he was hearing voices telling him to hurt his nephew. He reports he is not hearing these voices anymore. Pt denies SI. He continues to present as withdrawn, mostly in his room, minimally interacting with peers. Per nursing, pt mostly in room, sleeping on mattress on floor for unclear reasons. No behavioral concerns.? 06/03: pt found resting in his bed, easily rousable.? comes with MD to interview room.? states he is feeling better than when last seen by this typewriter tester.? his mood is more calm, and his AH are so-so. ? denies SI/HI/VH.? willing to have relprevv WONG.? per staff, watching TV, pacing.? taking medications, denies anx/dep.? had a good day, safe on the unit.? flat affect.? slept after 0100. 06/07: no change in presentation from yesterday.? accepts that we will not be able to proceed with relprevv due to lack of any location which would be able to administer the shot outpatient.? rather than switch to abilify pt opts to take zyprexa in the morning, as he believes he would remember to take it if he were scheduled to take it in the morning.? no complaints or requests.? per staff, not attending groups.? pleasant.? isolative, safe.? eating and sleeping well. 06/11: discharged to his father's house per his request. c/o pustules in his groin area which he believes are related to olanzapine but declines to stay longer to address the issue. pt was educated to see a social work program coordinator and to F/U with his outpt prescriber. no other complaints or requests. Time Spent with Patient Time attestation: Total time spent providing and/or coordinating discharge services: Discharge Plan Discharge Patient Disposition: Home, Self-Care Discharge Diagnosis: Schizophrenia, Paranoid Type Referrals: Darwin Holliday (psychiatrist) [Other] (Referral submitted, [facility] will call you directly to provide the appointment) Department of Mental Health ([facility]) [Other] (Nicholas Huber will follow up via phone after you return home. Call with any questions or if you do not receive a call) Oneil Morton MD [Primary Care Provider] - 1 Week (Provider will be calling pt for follow up appointment ) Discharge Medications: New olanzapine 10 mg Tablet 20 mg PO DAILY 30 Days Qty: 60 RF: 0 sertraline 50 mg Tablet 50 mg PO DAILY 30 Days Qty: 30 RF: 0 Continued propranolol 10 mg tablet 1 tab PO TID RF: 0 Discontinued risperidone 3 mg tablet 1 tab PO BEDTIME RF: 0 bupropion HCl 150 mg tablet extended release 24 hr 1 tab PO QAM RF: 0 Discharge Orders: Discharge Order (Routine); Ordered 06/11/21 Ordered By: Jr Hernandez Diet: advance to usual diet Activity on Discharge: As tolerated Stand Alone Forms: Patient Portal Discharge page, Community Support Care Plan Goals: maintain independent living in the outpatient treatment setting Health Concerns: dermatological complaints Plan of Treatment: take medications as prescribed, attend appointments as scheduled Assessment: not at imminent risk of harm to self or others Discharge Date/Time: 06/11/21 13:52
== END 2021-06-11 13:52 | disposition home or self-care (01) | DRG 885 ==
LOC: HO.ED 15:11 → HO.PADLT16 05-19 13:38
PROVIDERS: Physician Assistant Medical; Admitting Provider Psychiatry & Neurology Psychiatry; Emergency Provider Emergency Medicine; PCP Pediatrics; Visit Provider Psychiatry & Neurology Psychiatry
DX: F20.9 Schizophrenia, unspecified (principal); F90.9 Attention-deficit hyperactivity disorder, unspecified type; Z20.822 Contact with and (suspected) exposure to COVID-19; Z23 Encounter for immunization; Z88.0 Allergy status to penicillin; Z79.899 Other long term (current) drug therapy
CPT/HCPCS: 36415; 80053; 80307; 81003; 82077; 83690; 83735; 85025; 87635; 90471; 90686; 93005; 99285

== ENCOUNTER 2023-02-20 21:11 | Inpatient (IN) | payer MEDICARE, SELFPAY ==
[2023-02-20 21:14] VITALS: BP 145/79; PULSE 78; RESP 18; TEMP 36.2; O2SAT 99; BMI 46.5
--- NOTE | 2023-02-20 21:30 | ED_ITS ---
HPI - Psych General Chief Complaint: Psychiatric Symptoms Stated Complaint: not cooperative, crisis, per ems Time Seen by Provider: 02/20/23 21:25 Source: EMS Mode of arrival: EMS Limitations: no limitations and other ( Psychiatric decompensation) History of Present Illness HPI Narrative: patient comes to the emergency room via ambulance from home. Patient lives with his mother, the patient's mother called EMS because he is psychiatrically decompensated. Seems that patient has not taken any of his medications. Police department brought him to the emergency room. When patient arrived, patient compliant but not speaking. Patient just stares into space without answering any questions. Related Data Home Medications Medication Instructions Recorded Confirmed olanzapine 20 mg tablet 20 mg PO DAILY 02/20/23 02/20/23 propranolol 10 mg tablet 10 mg PO DAILY 02/20/23 02/20/23 sertraline 50 mg tablet 50 mg PO DAILY 02/20/23 02/20/23 Allergies Allergy/AdvReac Type Severity Reaction Status Date / Time Penicillins [PENICILLINS] Allergy Unknown RASH Verified 05/19/21 07:39 Review of Systems Review of Systems: Yes Unobtainable due to mental condition [facility] Past Medical History Medical History (Updated 02/20/23 @ 21:36 by Chasidy Carmona MD) Depression ADHD Schizophrenia Social History Social History Household Members: Family Housing: Apartment Do you presently have visiting nurse or other home services: No Alcohol intake: unknown Patient Tobacco Use Status: Never used Tobacco Substance Use Type: Marijuana service: No Sexual orientation: Straight/Heterosexual Physical Exam Vital Signs: Vital Signs: Last Vital Signs Temp 97.1 F 02/20/23 21:14 Pulse 78 02/20/23 21:14 Resp 18 02/20/23 21:14 BP 145/79 H 02/20/23 21:14 Pulse Ox 99 02/20/23 21:14 O2 Del Method Room Air 02/20/23 21:14 BMI result Body Mass Index 46.5 Const: Other: Appearance: Alert. No acute distress, staring into space, not answering any questions Eyes: Pupils equal, round and reactive to light. ENT: Pharynx normal. Neck: Normal inspection. Neck supple. No lymph nodes noted. No crepitus CVS: Normal heart rate and rhythm. Pulses normal. Normal S1 and S2 Respiratory: No respiratory distress. Breath sounds normal. No Wheezing. No rales Abdomen: Soft and nontender. No rigidity. No distention. Skin: Skin warm and dry. Normal skin color. Normal skin turgor. Extremities: No lower extremity edema. No Lacerations. No Rash Neuro:Moving all extremities. unable to participating cranial nerve assessment Psych: calm, cooperative, not answering questions, staring into space Course Course Course Narrative: - all of patient's labs pending - patient was Section 12 by police department - care team consult pending - patient receiving 20 mg of olanzapine at this time which is his home dose - physician observation started at 21:35 Medical Decision Making Differential Diagnosis Differential Diagnoses: The differential diagnosis associated with the presentation includes ( schizophrenia, medication noncompliance, substance abuse) Admission/Observation Consideration of admission/observation: Escalation of care including admission/observation considered ( patient is on a Section 12, patient will be under observation until disposition is determined by the care team) Discharge Plan Discharge Clinical Impression: Schizophrenia, Noncompliance with medications Patient Disposition: Still a Patient Prescriptions: No Action propranolol 10 mg tablet 10 mg PO DAILY sertraline 50 mg tablet 50 mg PO DAILY olanzapine 20 mg tablet 20 mg PO DAILY Interventions: [place]-Suicide Risk Severity Scale Last Done: 02/20/23 21:23
[2023-02-20] MEDS: OLANZapine 10 MG TABLET 20 MG PO (21:31)
[2023-02-20 21:47] LABS: MANUAL DIFF FLAG NO
[2023-02-20 21:51] LABS: Basophils Percent Auto 0.3 % (0-2); Eosinophils Absolute Auto 0.3 X10*3/uL (0.0-0.4); Eosinophils Percent Auto 2.6 % (0-4); Hematocrit 45.3 % (42.0-52.0); Hemoglobin 15.2 g/dl (14.0-18.0); Imm Gran Abs Auto 0.04 X10*3/uL (0.00-0.03); Imm Gran Pct Auto 0.3 % (0.0-0.4); Lymphocytes Absolute Auto 3.3 X10*3/uL (1.2-4.9); Lymphocytes Percent Auto 27.3 % (20-40); Mean Corpuscular HGB Conc 33.6 g/dl (31.0-36.0); Mean Corpuscular Hemoglobin 30.5 pg (27.0-33.0); Mean Corpuscular Volume 90.8 fL (80.0-98.0); Mean Platelet Volume 9.6 fL (9.4-12.4); Monocytes Absolute Auto 0.8 X10*3/uL (0.1-1.2); Monocytes Percent Auto 6.8 % (2-11); Neutrophils Absolute Auto 7.5 x10*3/uL (2.0-8.3); Neutrophils Percent Auto 62.7 % (45-73); Platelet Count 340 X10*3/uL (160-400); Red Blood Count 4.99 X10*6/uL (4.60-5.80); Red Cell Distribution Width 12.7 % (11.0-16.0)
[2023-02-20 22:02] LABS: Ethanol < 10 mg/dL
[2023-02-20 22:03] LABS: Alanine Aminotransferase 74 U/L (0-40); Albumin Level 5.1 g/dL (3.5-5.0); Alkaline Phosphatase 62 U/L (39-117); Anion Gap 19 (12-20); Aspartate Amino Transferase 34 U/L (5-37); Bilirubin Total 0.6 mg/dL (0.0-1.0); Blood Urea Nitrogen 12 mg/dL (9-16); Calcium 9.5 mg/dL (8.4-10.2); Carbon Dioxide 23 mmol/L (22-29); Chloride 105 mmol/L (96-108); Creatinine Clr Calc Pharmacy 168.3; Estimated Glomerular Filt Rate > 60; Glucose Random 104 mg/dL (60-115); Potassium 3.7 mmol/L (3.3-5.1); Sodium 143 mmol/L (135-145); Total Protein 8.7 g/dL (6.5-8.0)
[2023-02-20 22:05] LABS: COVID-19 Test Negative (Negative); IDNOW Serial# 6674DD1D
--- NOTE | 2023-02-21 05:59 | PC.NURSE ---
Patient slept through the night, no distress observed/reported, behavior non concerning at this time may escalates due to unpredictability secondary to decompensation caused by medication non compliance, exhibits delayed response, med rec completed/pending provider's approval, Olanzapine 20 mg PO administered at 2131 + effect slept through the night, urine sample missed to collect techs aware, blood work completed, VSS, will continue to monitor.
--- NOTE | 2023-02-21 07:22 | PC.NURSE ---
Resumed care of patient, he is currently resting in place, awaiting urine sample at this time, safety measures in place, safety checks in place. pending further consults to determine plan of care
[2023-02-21 10:34] LABS: Appearance Urine Clear; Color Urine Yellow; Glucose Urine UA Negative (Negative); Leukocyte Esterase Urine Negative (Negative); Nitrite Urine Negative (Negative); Urine Blood Negative (Negative); Urine Ketones Negative (Negative); Urine Protein Negative (Neg-Trace)
[2023-02-21 10:41] LABS: Amphetamine Screen Urine Not Detected (Not Detect); Barbiturates, Urine Not Detected (Not Detect); Benzodiazepines Screen Urine Not Detected (Not Detect); Cannabinoid Screen Urine POSITIVE (Not Detect); Cocaine Screen Urine Not Detected (Not Detect); Fentanyl, urine Not Detected (Not Detect); Opiate Screen Urine Not Detected (Not Detect); Phencyclidine Screen Urine Not Detected (Not Detect)
[2023-02-21 14:50] VITALS: BP 140/83; PULSE 93; RESP 18; TEMP 36.4; O2SAT 100
--- NOTE | 2023-02-21 19:14 | PC.NURSE ---
patient appears to remain at rest at present, appears in no distress, patient is a bed search at this time.
[2023-02-21 20:39] VITALS: BP 125/76; PULSE 85; RESP 18; TEMP 37; O2SAT 98
--- NOTE | 2023-02-22 02:22 | PC.NURSE ---
upon doing room checks patient seemed restless in bed, t/w asked client if he desired a medication to help with sleep which client declined. Liquids were offered also which were also declined.
--- NOTE | 2023-02-22 10:11 | ECG_ITS ---
Test Reason : MEDICAL CLEARANCE Blood Pressure : / mmHG Vent. Rate : 072 BPM Atrial Rate : 072 BPM P-R Int : 146 ms QRS Dur : 114 ms QT Int : 358 ms P-R-T Axes : 047 049 035 degrees QTc Int : 392 ms Normal sinus rhythm RSR' or QR pattern in V1 suggests right ventricular conduction delay Borderline ECG When compared with ECG of 19-MAY-2021 00:37, RSR' pattern in V1 is now Present Referred By: Cliff Altman Electronically Signed By:KIRBY PONCE
--- NOTE | 2023-02-22 11:57 | PHA.MEDREC ---
Pharmacy Consult ? Medication Reconciliation Pharmacy has completed the medication reconciliation. Reviewed med rec done by nursing
[2023-02-22 17:14] VITALS: RESP 18
--- NOTE | 2023-02-22 17:15 | PC.NURSE ---
Julio has remained in his room for most of the day. Very difficult to engage he has been in his bed resting and only responding with one word answers but very delayed in responding. Appetite good. No scheduled medications.
[2023-02-22 18:29] VITALS: BP 130/80; PULSE 113; RESP 19; TEMP 37; O2SAT 97
[2023-02-22] MEDS: traZODone HCL 50 MG TABLET PO (21:29)
[2023-02-22] MEDS: OLANZapine 10 MG TABLET 20 MG PO (21:29)
[2023-02-22 22:01] VITALS: BP 138/70; PULSE 94; RESP 18; TEMP 37.3; O2SAT 98
--- NOTE | 2023-02-22 23:02 | PC.ADMIT ---
Patient arrived to unit from ED, he is in hospital attire, calm, cooperative with care. He is gaurded, withdrawn, inexpressive, unable to answer most questions. He avoids eye contact when asking questions and looking down mostly but seems to answer best when he is looking directly at you. He is alert to person and place. Takes a significant amount of time to answer questions if he is able to answer them at all. He is med compliant. Patient was able to sign a CV after RN explained to him what it was. He is independent in ADL's currently, strong and steady on his feet. His VSS. He was teary eyed when RN explained to him that we are here to help him and that everything would be ok and he started to rub his eyes. He sat out in [facility] and watched television for about 45 minutes and had something to drink and took his meds and went to bed.
[2023-02-23 09:10] LABS: Estimated Average Glucose 111 mg/dL; Hemoglobin A1c % 5.5 % (<6.0)
[2023-02-23] MEDS: OLANZapine 10 MG TABLET 20 MG PO (09:11)
[2023-02-23 09:13] VITALS: BP 110/58; PULSE 83; RESP 18; TEMP 36.7; O2SAT 98
[2023-02-23 09:20] LABS: Alanine Aminotransferase 78 U/L (0-40); Albumin Level 4.5 g/dL (3.5-5.0); Alkaline Phosphatase 54 U/L (39-117); Anion Gap 15 (12-20); Aspartate Amino Transferase 32 U/L (5-37); Bilirubin Total 0.7 mg/dL (0.0-1.0); Blood Urea Nitrogen 13 mg/dL (9-16); Calcium 10.3 mg/dL (8.4-10.2); Carbon Dioxide 26 mmol/L (22-29); Chloride 105 mmol/L (96-108); Cholesterol 132 mg/dL (<200); Creatinine Clr Calc Pharmacy 154.8; Estimated Glomerular Filt Rate > 60; Glucose Fasting 94 mg/dL (60-99); HDL Cholesterol 24 mg/dL (>40); LDL Cholesterol Calculated 83 mg/dL (<100); Potassium 4.1 mmol/L (3.3-5.1); Sodium 142 mmol/L (135-145); Total Protein 7.8 g/dL (6.5-8.0); Triglycerides 126 mg/dL (<150)
[2023-02-23 09:46] LABS: Folate 15.2 ng/mL (> or = 4.0); Vitamin B12 555 pg/mL (200-900)
--- NOTE | 2023-02-23 10:02 | HO.PSYADMNOT ---
HPI Date of Service: 02/23/23 Chief Complaint: pyschosis Sources of Information: patient interviewed, chart reviewed and crisis/core team assessment reviewed HPI Subjective Notes: Conditional Voluntary Narrative: Patient is a 27 year old male with hx of schizophrenia and multiple inpatient hospitalizations who was brought into [facility] via [facility] on a Section 12 secondary to medication noncompliance and bizarre behavior. According to crisis report, patient family reported pt has not been taking his medications for the past few months and has been isolating to his room, not attending to ADLs, hearing voices and talking to himself and exhibited aggressive behavior towards his mother. During admission assessment, pt presents guarded and brief. Patient appeared to be internally preoccupied and having thought blocking; when asked if he was experiencing auditory hallucinations patient stated no . T/W would repeat questions multiple times d/t patient's thought process. Patient reports feeling alright ; he stated, I stopped the medication because it made me tired all the time. I don't think I need medication . Patient reports he would be willing to take medications while in the hospital but does not know if he will take them when discharged. denies SI/HI/VH/AH at this time. Reviewed case with . Past Psychiatric History: h/o schizophrenia. multiple hospitalizations. seen at [facility]. h/o medication non-compliance. no documented h/o SA/SIB/HIB. Medical Evaluation Reviewed: Yes [facility] Medical History (Updated 02/20/23 @ 21:36 by Chasidy Carmona MD) Depression ADHD Schizophrenia Family History: reportedly there is a FH of mental illness and ASHANTI. Social History: [place] and [place] at 6 yo. one of three kids. sibs spent some time in foster care when he was 4 yo and then reunited a few years later. mother is and remarried. pt lives with his father. single, never , no children. receives SSI income. Substance History: Utox positive for marijuana. Trauma History: alluded to childhood H/O trauma, has not specified. Diagnostics Vital Signs (24Hr): Vital Signs - 24 hr 02/22/23 17:14 02/22/23 18:29 02/22/23 22:01 Temperature 98.6 F 99.1 F Pulse Rate 113 H 94 Respiratory Rate 18 19 18 Blood Pressure 130/80 138/70 Pulse Oximetry 97 98 Oxygen Delivery Method Room Air 02/23/23 09:13 Temperature 98.1 F Pulse Rate 83 Respiratory Rate 18 Blood Pressure 110/58 L Pulse Oximetry 98 Oxygen Delivery Method Room Air BMI result Body Mass Index 46.5 Labs 02/20/23 21:40 02/23/23 08:10 Labs: Laboratory Results - last 48 hr 02/21/23 02/23/23 10:26 08:10 Sodium 142 Potassium 4.1 Chloride 105 Carbon Dioxide 26 Anion Gap 15 BUN 13 Creatinine 1.00 Estim Creat Clear Calc 154.8 Estimated GFR > 60 Fasting Glucose 94 Estimat Average Glucose 111 Hemoglobin A1c % 5.5 Calcium 10.3 H D Total Bilirubin 0.7 AST 32 ALT 78 H Alkaline Phosphatase 54 Total Protein 7.8 Albumin 4.5 Triglycerides 126 Cholesterol 132 LDL Cholesterol, Calc 83 HDL Cholesterol 24 L Vitamin B12 555 Folate 15.2 TSH 2.00 Urine Color Yellow Urine Appearance Clear Urine pH 7.0 Ur Specific [place] 1.010 Urine Protein Negative Urine Glucose (UA) Negative Urine Ketones Negative Urine Blood Negative Urine Nitrite Negative Ur Leukocyte Esterase Negative Urine Opiates Screen Not Detected Urine Fentanyl Screen Not Detected Ur Barbiturates Screen Not Detected Ur Phencyclidine Scrn Not Detected Ur Amphetamines Screen Not Detected U Benzodiazepines Scrn Not Detected Urine Cocaine Screen Not Detected U Marijuana (THC) Screen POSITIVE H Meds/Allergies Meds Home Medications Medication Instructions Recorded Confirmed Type olanzapine 20 mg tablet 20 mg PO DAILY 02/20/23 02/20/23 History propranolol 10 mg tablet 10 mg PO DAILY 02/20/23 02/20/23 History sertraline 50 mg tablet 50 mg PO DAILY 02/20/23 02/22/23 History Allergies Allergies Allergy/AdvReac Type Severity Reaction Status Date / Time Penicillins [PENICILLINS] Allergy Unknown RASH Verified 05/19/21 07:39 Mental Status Exam Mental Status Exam Narrative: Pt is alert and oriented; behavior is cooperative, guarded and brief; dressed in casual attire; mood is described as fine ; eye contact appropriate; Speech is normal rate, volume and prosody and not pressured; no psychomotor agitation/retardation present; thought process is organized; Thought content is thought blocking; otherwise pertinent to relevant topics and without any delusional content, paranoid ideations or grandiosity; denies any SI/HI. Patient appears to be internally preoccupied, however denies when asked if experiencing auditory or visual hallucinations. Patients insight and judgment are poor. Assessment & Plan Assessment & Plan (1) Schizophrenia: Status: Acute Code(s): F20.9 - Schizophrenia, unspecified Plan Patient is a 27 year old male with hx of schizophrenia and multiple inpatient hospitalizations who was brought into [facility] via [facility] on a Section 12 secondary to medication noncompliance and bizarre behavior. Plan: CV 15 minute safety checks Continue home medications Obtain collateral from outpatient provider Obtain collateral from [facility] worker Patient educated on: medication risk/benefits Informed Consent: understands and further education needed Reason for continued inpatient stay Substantial Risk for: med/psych decompensation Statement Statement: I have reviewed the history and physical and performed a pertinent examination on my patient. No changes have occurred unless specified. If the History and Physical was not performed prior to admission, the Hospitalist's service will be consulted for completing the admission physical. Time Spent With Patient Time: Total time managing care of this patient today _60___ minutes.
[2023-02-23] MEDS: Sertraline HCL 25 MG TABLET PO (12:16)
[2023-02-23 20:47] VITALS: BP 136/88; PULSE 115; RESP 18; TEMP 36.6; O2SAT 98
[2023-02-24 09:45] VITALS: BP 125/77; PULSE 80; RESP 18; TEMP 36.7; O2SAT 96
[2023-02-24] MEDS: Sertraline HCL 25 MG TABLET PO (09:52)
[2023-02-24] MEDS: OLANZapine 10 MG TABLET 20 MG PO (09:52)
--- NOTE | 2023-02-24 10:07 | HO.PSYCHPN ---
Subjective Subjective Date of Service: 02/24/23 Reason For Visit: pyschosis Subjective Notes: Conditional Voluntary Interim History: Reviewed in team and . Patient presents less guarded today. Patient stated, I'm feeling ok. I'm staying in bed because I don't like to be around people. I don't want to make any connections with people here, it keeps me away from trouble. I like to be alone . Patient reports having auditory hallucinations; he stated, I've had voices since I was a kid. They are only scary if I take marijuana, other than that they help me . When asked if he has visual hallucinations; pt stated, they don't play that hard with me . denies SI/HI. Medication Compliance: Yes Side effects from medications: No Attending Groups: No Review of Systems Constitutional: Reports as per HPI Eyes: Reports as per HPI Reports as per HPI Cardiovascular: Reports as per HPI Respiratory: Reports as per HPI Gastrointestinal: Reports as per HPI Genitourinary: Reports as per HPI Musculoskeletal: Reports as per HPI Skin/Breast: Reports as per HPI Reports as per HPI Psychiatric: Reports as per HPI Endocrine: Reports as per HPI Hematologic/Lymphatic: Reports as per HPI Allergic/Immunologic: Reports as per HPI Mental Status Exam Mental Status Exam Narrative: Pt is alert and oriented; behavior is cooperative, guarded; dressed in casual attire; mood is described as fine ; eye contact appropriate; Speech is normal rate, volume and prosody and not pressured; no psychomotor agitation/retardation present; thought process is organized; Thought content is thought blocking; otherwise pertinent to relevant topics and without any delusional content, paranoid ideations or grandiosity; denies SI/HI. Patient appears to be internally preoccupied, reports auditory hallucinations that he reports are not bothersome. Patients insight and judgment are poor but improving. Diagnostics Vital Signs (24Hr): Vital Signs - 24 hr 02/23/23 20:47 02/24/23 09:45 Temperature 97.8 F 98.1 F Pulse Rate 115 H 80 Respiratory Rate 18 18 Blood Pressure 136/88 125/77 Pulse Oximetry 98 96 Oxygen Delivery Method Room Air Room Air BMI result Body Mass Index 46.5 Labs 02/20/23 21:40 02/23/23 08:10 Labs: Laboratory Results - last 48 hr 02/23/23 08:10 Sodium 142 Potassium 4.1 Chloride 105 Carbon Dioxide 26 Anion Gap 15 BUN 13 Creatinine 1.00 Estim Creat Clear Calc 154.8 Estimated GFR > 60 Fasting Glucose 94 Estimat Average Glucose 111 Hemoglobin A1c % 5.5 Calcium 10.3 H D Total Bilirubin 0.7 AST 32 ALT 78 H Alkaline Phosphatase 54 Total Protein 7.8 Albumin 4.5 Triglycerides 126 Cholesterol 132 LDL Cholesterol, Calc 83 HDL Cholesterol 24 L Vitamin B12 555 Folate 15.2 TSH 2.00 Medications Medications Current Medications Acetaminophen (Acetaminophen 325 Mg Tablet) 650 mg PO Q6H PRN PRN Reason: Headache/Pain Mild Scale (1-3) Al Hydroxide/Mg Hydroxide (Magnesium Hydrox/Alum Hydrox 30 Ml Oral.Susp) 30 ml PO Q6H PRN PRN Reason: Heartburn/Nausea Hydroxyzine HCl (Hydroxyzine Hcl 25 Mg Tablet) 25 mg PO Q6H PRN PRN Reason: Anxiety Magnesium Hydroxide (Milk Of Magnesia 30 Ml Oral.Susp) 30 ml PO DAILY PRN PRN Reason: Constipation Olanzapine (Olanzapine 10 Mg Tablet) 20 mg PO DAILY [facility] Last Admin: 02/24/23 09:52 Dose: 20 mg Sertraline HCl (Sertraline Hcl 25 Mg Tablet) 25 mg PO DAILY [facility] Last Admin: 02/24/23 09:52 Dose: 25 mg Trazodone HCl (Trazodone Hcl 50 Mg Tablet) 50 mg PO BEDTIME MRX1 PRN PRN Reason: Insomnia Last Admin: 02/22/23 21:29 Dose: 50 mg Allergies Allergies Allergy/AdvReac Type Severity Reaction Status Date / Time Penicillins [PENICILLINS] Allergy Unknown RASH Verified 05/19/21 07:39 Assessment & Plan Assessment & Plan (1) Schizophrenia: Status: Acute Code(s): F20.9 - Schizophrenia, unspecified Plan Patient is a 27 year old male with hx of schizophrenia and multiple inpatient hospitalizations who was brought into [facility] via [facility] on a Section 12 secondary to medication noncompliance and bizarre behavior. Plan: CV 15 minute safety checks Continue home medications Obtain collateral from outpatient provider Obtain collateral from [facility] worker 02/24: Patient presents less guarded today. Patient stated, I'm feeling ok. I'm staying in bed because I don't like to be around people. I don't want to make any connections with people here, it keeps me away from trouble. I like to be alone . Patient reports having auditory hallucinations; he stated, I've had voices since I was a kid. They are only scary if I take marijuana, other than that they help me . When asked if he has visual hallucinations; pt stated, they don't play that hard with me . denies SI/HI. Continue current tx plan. Patient educated on: diagnosis, medication risk/benefits and therapeutic strategies Informed Consent: understands and further education needed Reason for continued inpatient stay Substantial Risk for: med/psych decompensation Time Spent With Patient Time: Total time managing care of this patient today _30___ minutes.
[2023-02-24 20:49] VITALS: BP 129/65; PULSE 96; TEMP 36.3; O2SAT 97
[2023-02-25 06:00] VITALS: BP 116/59; PULSE 83; RESP 16; TEMP 36.6; O2SAT 96
[2023-02-25] MEDS: OLANZapine 10 MG TABLET 20 MG PO (08:26)
[2023-02-25] MEDS: Sertraline HCL 25 MG TABLET PO (08:26)
--- NOTE | 2023-02-25 09:30 | P.PNPSI_ITS ---
Subjective Subjective Date of Service: 02/25/23 Reason For Visit: pyschosis Subjective Notes: Conditional Voluntary Interim History: Reviewed with team and . Patient reports feeling good today. Patient stated, I wasn't mad at my mom; she just talks a lot and I kicked her out of my room. I work at [employer] and I'm tired when I get home . He continues to report auditory hallucinations that he states are not bothersome. Pt keeping to self, not attending groups but medication compliant. lawn service worker to reach out to mother to verify she is okay with him returning home. Medication Compliance: Yes Side effects from medications: No Attending Groups: No Review of Systems Constitutional: Reports as per HPI Eyes: Reports as per HPI Reports as per HPI Cardiovascular: Reports as per HPI Respiratory: Reports as per HPI Gastrointestinal: Reports as per HPI Genitourinary: Reports as per HPI Musculoskeletal: Reports as per HPI Skin/Breast: Reports as per HPI Reports as per HPI Psychiatric: Reports as per HPI Endocrine: Reports as per HPI Hematologic/Lymphatic: Reports as per HPI Allergic/Immunologic: Reports as per HPI Mental Status Exam Mental Status Exam Narrative: Pt is alert and oriented; behavior is cooperative and calm; dressed in casual attire; mood is described as good ; eye contact appropriate; Speech is normal rate, volume and prosody and not pressured; no psychomotor agitation/retardation present; thought process is organized and goal directed; Thought content is on tx; otherwise pertinent to relevant topics and without any delusional content, paranoid ideations or grandiosity; denies SI/HI. Reports auditory hallucinations that are not bothersome. denies VH. Patients insight and judgment are fair. Diagnostics Vital Signs (24Hr): Vital Signs - 24 hr 02/24/23 09:45 02/24/23 20:49 Temperature 98.1 F 97.3 F Pulse Rate 80 96 Respiratory Rate 18 Blood Pressure 125/77 129/65 Pulse Oximetry 96 97 Oxygen Delivery Method Room Air Room Air BMI result Body Mass Index 46.5 Labs 02/20/23 21:40 02/23/23 08:10 Labs: Laboratory Results - last 48 hr 02/23/23 08:10 Vitamin B12 555 Folate 15.2 TSH 2.00 Medications Medications Current Medications Acetaminophen (Acetaminophen 325 Mg Tablet) 650 mg PO Q6H PRN PRN Reason: Headache/Pain Mild Scale (1-3) Al Hydroxide/Mg Hydroxide (Magnesium Hydrox/Alum Hydrox 30 Ml Oral.Susp) 30 ml PO Q6H PRN PRN Reason: Heartburn/Nausea Hydroxyzine HCl (Hydroxyzine Hcl 25 Mg Tablet) 25 mg PO Q6H PRN PRN Reason: Anxiety Magnesium Hydroxide (Milk Of Magnesia 30 Ml Oral.Susp) 30 ml PO DAILY PRN PRN Reason: Constipation Olanzapine (Olanzapine 10 Mg Tablet) 20 mg PO DAILY [facility] Last Admin: 02/25/23 08:26 Dose: 20 mg Sertraline HCl (Sertraline Hcl 25 Mg Tablet) 25 mg PO DAILY [facility] Last Admin: 02/25/23 08:26 Dose: 25 mg Trazodone HCl (Trazodone Hcl 50 Mg Tablet) 50 mg PO BEDTIME MRX1 PRN PRN Reason: Insomnia Last Admin: 02/22/23 21:29 Dose: 50 mg Allergies Allergies Allergy/AdvReac Type Severity Reaction Status Date / Time Penicillins [PENICILLINS] Allergy Unknown RASH Verified 05/19/21 07:39 Assessment & Plan Assessment & Plan (1) Schizophrenia: Status: Acute Code(s): F20.9 - Schizophrenia, unspecified Plan Patient is a 27 year old male with hx of schizophrenia and multiple inpatient hospitalizations who was brought into [facility] via [facility] on a Section 12 secondary to medication noncompliance and bizarre behavior. Plan: CV 15 minute safety checks Continue home medications Obtain collateral from outpatient provider Obtain collateral from [facility] worker 02/24: Patient presents less guarded today. Patient stated, I'm feeling ok. I'm staying in bed because I don't like to be around people. I don't want to make any connections with people here, it keeps me away from trouble. I like to be alone . Patient reports having auditory hallucinations; he stated, I've had voices since I was a kid. They are only scary if I take marijuana, other than that they help me . When asked if he has visual hallucinations; pt stated, they don't play that hard with me . denies SI/HI. Continue current tx plan. 02/25: Patient reports feeling good today. Patient stated, I wasn't mad at my mom; she just talks a lot and I kicked her out of my room. I work at [employer] and I'm tired when I get home . He continues to report auditory hallucinations that he states are not bothersome. Pt keeping to self, not attending groups but medication compliant. lawn service worker to reach out to mother to verify she is okay with him returning home. Educated patient on the importance of medication compliance once discharged. Patient educated on: diagnosis, medication risk/benefits and therapeutic strategies Informed Consent: understands Reason for continued inpatient stay Substantial Risk for: med/psych decompensation Time Spent With Patient Time: Total time managing care of this patient today _30___ minutes.
[2023-02-25 19:50] VITALS: BP 122/65; PULSE 115; RESP 18; TEMP 36.4; O2SAT 97
[2023-02-26 09:35] VITALS: BP 116/57; PULSE 80; RESP 18; TEMP 36.7; O2SAT 96
[2023-02-26] MEDS: OLANZapine 10 MG TABLET 20 MG PO (09:57)
[2023-02-26] MEDS: Sertraline HCL 25 MG TABLET PO (09:57)
--- NOTE | 2023-02-26 15:25 | P.PNPSI_ITS ---
Subjective Subjective Date of Service: 02/26/23 Reason For Visit: pyschosis Interim History: in bed, calm, cooperative. no questions or complaints. per staff, quiet, calm, isolative. +AH. no VH. not attending groups. taking meds. slept. planning for D/C early next week. Mental Status Exam Mental Status Exam Narrative: Pt is alert and oriented; behavior is cooperative and calm; dressed in casual attire; mood is described as good ; eye contact appropriate; Speech is normal rate, volume and prosody and not pressured; no psychomotor agitation/retardation present; thought process is organized and goal directed; Thought content is on tx; otherwise pertinent to relevant topics and without any delusional content, paranoid ideations or grandiosity; denies SI/HI. Reports auditory hallucinations that are not bothersome. denies VH. Patients insight and judgment are fair. Diagnostics Vital Signs (24Hr): Vital Signs - 24 hr 02/25/23 19:50 Temperature 97.5 F Pulse Rate 115 H Respiratory Rate 18 Blood Pressure 122/65 Pulse Oximetry 97 Oxygen Delivery Method Room Air BMI result Body Mass Index 46.5 Labs 02/20/23 21:40 02/23/23 08:10 Medications Medications Current Medications Acetaminophen (Acetaminophen 325 Mg Tablet) 650 mg PO Q6H PRN PRN Reason: Headache/Pain Mild Scale (1-3) Al Hydroxide/Mg Hydroxide (Magnesium Hydrox/Alum Hydrox 30 Ml Oral.Susp) 30 ml PO Q6H PRN PRN Reason: Heartburn/Nausea Hydroxyzine HCl (Hydroxyzine Hcl 25 Mg Tablet) 25 mg PO Q6H PRN PRN Reason: Anxiety Magnesium Hydroxide (Milk Of Magnesia 30 Ml Oral.Susp) 30 ml PO DAILY PRN PRN Reason: Constipation Olanzapine (Olanzapine 10 Mg Tablet) 20 mg PO DAILY [facility] Last Admin: 02/26/23 09:57 Dose: 20 mg Sertraline HCl (Sertraline Hcl 25 Mg Tablet) 25 mg PO DAILY [facility] Last Admin: 02/26/23 09:57 Dose: 25 mg Trazodone HCl (Trazodone Hcl 50 Mg Tablet) 50 mg PO BEDTIME MRX1 PRN PRN Reason: Insomnia Last Admin: 02/22/23 21:29 Dose: 50 mg Allergies Allergies Allergy/AdvReac Type Severity Reaction Status Date / Time Penicillins [PENICILLINS] Allergy Unknown RASH Verified 05/19/21 07:39 Assessment & Plan Assessment & Plan (1) Schizophrenia: Status: Acute Code(s): F20.9 - Schizophrenia, unspecified Plan Patient is a 27 year old male with hx of schizophrenia and multiple inpatient hospitalizations who was brought into [facility] via [facility] on a [address] secondary to medication noncompliance and bizarre behavior. Plan: CV 15 minute safety checks Continue home medications Obtain collateral from outpatient provider Obtain collateral from H worker 02/24: Patient presents less guarded today. Patient stated, I'm feeling ok. I'm staying in bed because I don't like to be around people. I don't want to make any connections with people here, it keeps me away from trouble. I like to be alone . Patient reports having auditory hallucinations; he stated, I've had voices since I was a kid. They are only scary if I take marijuana, other than that they help me . When asked if he has visual hallucinations; pt stated, they don't play that hard with me . denies SI/HI. Continue current tx plan. 02/25: Patient reports feeling good today. Patient stated, I wasn't mad at my mom; she just talks a lot and I kicked her out of my room. I work at [employer] and I'm tired when I get home . He continues to report auditory hallucinations that he states are not bothersome. Pt keeping to self, not attending groups but medication compliant. electric utility lineworker to reach out to mother to verify she is okay with him returning home. Educated patient on the importance of medication compliance once discharged. 02/26: stable, improved. continue current mgmt. AH continue. planning for discharge early next week. Reason for continued inpatient stay Substantial Risk for: inability to function and rapid decompensation Time Spent With Patient Time: Total time managing care of this patient today __25__ minutes.
[2023-02-26 18:00] VITALS: BP 135/73; PULSE 91; RESP 16; TEMP 36.4; O2SAT 97
[2023-02-27] MEDS: Sertraline HCL 25 MG TABLET PO (08:47)
[2023-02-27] MEDS: OLANZapine 10 MG TABLET 20 MG PO (08:47)
[2023-02-27 11:07] VITALS: BP 122/75; PULSE 102; TEMP 36.3; O2SAT 97
[2023-02-27 20:15] VITALS: BP 115/56; PULSE 95; RESP 16; TEMP 36.2; O2SAT 97
--- NOTE | 2023-02-27 22:42 | HO.PSYCHPN ---
Subjective Subjective Date of Service: 02/27/23 Reason For Visit: pyschosis Interim History: pt reports he is doing really good, no complaints or requests. per staff, brighter affect. no AH. appears to be distracted, however, asking for staff to repeat questions they have just asked. taking meds. not attending groups. eating well. sleeping well. Mental Status Exam Mental Status Exam Narrative: Pt is alert and oriented; behavior is cooperative and calm; dressed in casual attire; mood is described as good ; eye contact appropriate; Speech is normal rate, volume and prosody and not pressured; no psychomotor agitation/retardation present; thought process is organized and goal directed; Thought content is on tx; otherwise pertinent to relevant topics and without any delusional content, paranoid ideations or grandiosity; denies SI/HI. Reports auditory hallucinations that are not bothersome. denies VH. Patients insight and judgment are fair. Diagnostics Vital Signs (24Hr): Vital Signs - 24 hr 02/27/23 11:07 02/27/23 20:15 Temperature 97.3 F 97.2 F Pulse Rate 102 H 95 Respiratory Rate 16 Blood Pressure 122/75 115/56 L Pulse Oximetry 97 97 Oxygen Delivery Method Room Air Room Air BMI result Body Mass Index 46.5 Labs 02/20/23 21:40 02/23/23 08:10 Medications Medications Current Medications Acetaminophen (Acetaminophen 325 Mg Tablet) 650 mg PO Q6H PRN PRN Reason: Headache/Pain Mild Scale (1-3) Al Hydroxide/Mg Hydroxide (Magnesium Hydrox/Alum Hydrox 30 Ml Oral.Susp) 30 ml PO Q6H PRN PRN Reason: Heartburn/Nausea Hydroxyzine HCl (Hydroxyzine Hcl 25 Mg Tablet) 25 mg PO Q6H PRN PRN Reason: Anxiety Magnesium Hydroxide (Milk Of Magnesia 30 Ml Oral.Susp) 30 ml PO DAILY PRN PRN Reason: Constipation Olanzapine (Olanzapine 10 Mg Tablet) 20 mg PO DAILY [facility] Last Admin: 02/27/23 08:47 Dose: 20 mg Sertraline HCl (Sertraline Hcl 25 Mg Tablet) 25 mg PO DAILY [facility] Last Admin: 02/27/23 08:47 Dose: 25 mg Trazodone HCl (Trazodone Hcl 50 Mg Tablet) 50 mg PO BEDTIME MRX1 PRN PRN Reason: Insomnia Last Admin: 02/22/23 21:29 Dose: 50 mg Allergies Allergies Allergy/AdvReac Type Severity Reaction Status Date / Time Penicillins [PENICILLINS] Allergy Unknown RASH Verified 05/19/21 07:39 Assessment & Plan Assessment & Plan (1) Schizophrenia: Status: Acute Code(s): F20.9 - Schizophrenia, unspecified Plan Patient is a 27 year old male with hx of schizophrenia and multiple inpatient hospitalizations who was brought into [facility] via [facility] on a [address] secondary to medication noncompliance and bizarre behavior. Plan: CV 15 minute safety checks Continue home medications Obtain collateral from outpatient provider Obtain collateral from [facility] worker 02/24: Patient presents less guarded today. Patient stated, I'm feeling ok. I'm staying in bed because I don't like to be around people. I don't want to make any connections with people here, it keeps me away from trouble. I like to be alone . Patient reports having auditory hallucinations; he stated, I've had voices since I was a kid. They are only scary if I take marijuana, other than that they help me . When asked if he has visual hallucinations; pt stated, they don't play that hard with me . denies SI/HI. Continue current tx plan. 02/25: Patient reports feeling good today. Patient stated, I wasn't mad at my mom; she just talks a lot and I kicked her out of my room. I work at [employer] and I'm tired when I get home . He continues to report auditory hallucinations that he states are not bothersome. Pt keeping to self, not attending groups but medication compliant. bag worker to reach out to mother to verify she is okay with him returning home. Educated patient on the importance of medication compliance once discharged. 02/26: stable, improved. continue current mgmt. AH continue. planning for discharge early next week. 02/27: same presentation as yesterday. no change in plan. Reason for continued inpatient stay Substantial Risk for: inability to function and rapid decompensation Time Spent With Patient Time: Total time managing care of this patient today ____ minutes.
[2023-02-28 09:10] VITALS: BP 105/61; PULSE 90; RESP 16; TEMP 36.9; O2SAT 94
[2023-02-28] MEDS: Sertraline HCL 25 MG TABLET PO (09:12)
[2023-02-28] MEDS: OLANZapine 10 MG TABLET 20 MG PO (09:12)
--- NOTE | 2023-02-28 16:12 | HO.PSYCHPN ---
Subjective Subjective Date of Service: 02/28/23 Reason For Visit: pyschosis Interim History: calm, cooperative. no questions or complaints. per staff, no changes. brighter affect. Mental Status Exam Mental Status Exam Narrative: Pt is alert and oriented; behavior is cooperative and calm; dressed in casual attire; mood is described as good ; eye contact appropriate; Speech is normal rate, volume and prosody and not pressured; no psychomotor agitation/retardation present; thought process is organized and goal directed; Thought content is on tx; otherwise pertinent to relevant topics and without any delusional content, paranoid ideations or grandiosity; denies SI/HI. Reports auditory hallucinations that are not bothersome. denies VH. Patients insight and judgment are fair. Diagnostics Vital Signs (24Hr): Vital Signs - 24 hr 02/27/23 20:15 02/28/23 09:10 Temperature 97.2 F 98.5 F Pulse Rate 95 90 Respiratory Rate 16 16 Blood Pressure 115/56 L 105/61 Pulse Oximetry 97 94 Oxygen Delivery Method Room Air Room Air BMI result Body Mass Index 46.5 Labs 02/20/23 21:40 02/23/23 08:10 Medications Medications Current Medications Acetaminophen (Acetaminophen 325 Mg Tablet) 650 mg PO Q6H PRN PRN Reason: Headache/Pain Mild Scale (1-3) Al Hydroxide/Mg Hydroxide (Magnesium Hydrox/Alum Hydrox 30 Ml Oral.Susp) 30 ml PO Q6H PRN PRN Reason: Heartburn/Nausea Hydroxyzine HCl (Hydroxyzine Hcl 25 Mg Tablet) 25 mg PO Q6H PRN PRN Reason: Anxiety Magnesium Hydroxide (Milk Of Magnesia 30 Ml Oral.Susp) 30 ml PO DAILY PRN PRN Reason: Constipation Olanzapine (Olanzapine 10 Mg Tablet) 20 mg PO DAILY [facility] Last Admin: 02/28/23 09:12 Dose: 20 mg Sertraline HCl (Sertraline Hcl 25 Mg Tablet) 25 mg PO DAILY [facility] Last Admin: 02/28/23 09:12 Dose: 25 mg Trazodone HCl (Trazodone Hcl 50 Mg Tablet) 50 mg PO BEDTIME MRX1 PRN PRN Reason: Insomnia Last Admin: 02/22/23 21:29 Dose: 50 mg Allergies Allergies Allergy/AdvReac Type Severity Reaction Status Date / Time Penicillins [PENICILLINS] Allergy Unknown RASH Verified 05/19/21 07:39 Assessment & Plan Assessment & Plan (1) Schizophrenia: Status: Acute Code(s): F20.9 - Schizophrenia, unspecified Plan Patient is a 27 year old male with hx of schizophrenia and multiple inpatient hospitalizations who was brought into [facility] via [facility] on a [address] secondary to medication noncompliance and bizarre behavior. Plan: CV 15 minute safety checks Continue home medications Obtain collateral from outpatient provider Obtain collateral from [facility] worker 02/24: Patient presents less guarded today. Patient stated, I'm feeling ok. I'm staying in bed because I don't like to be around people. I don't want to make any connections with people here, it keeps me away from trouble. I like to be alone . Patient reports having auditory hallucinations; he stated, I've had voices since I was a kid. They are only scary if I take marijuana, other than that they help me . When asked if he has visual hallucinations; pt stated, they don't play that hard with me . denies SI/HI. Continue current tx plan. 02/25: Patient reports feeling good today. Patient stated, I wasn't mad at my mom; she just talks a lot and I kicked her out of my room. I work at [employer] and I'm tired when I get home . He continues to report auditory hallucinations that he states are not bothersome. Pt keeping to self, not attending groups but medication compliant. ironworker helper shop to reach out to mother to verify she is okay with him returning home. Educated patient on the importance of medication compliance once discharged. 02/26: stable, improved. continue current mgmt. continue. planning for discharge early next week. 02/27: same presentation as yesterday. no change in plan. 02/28: stable. continue current mgmt. Reason for continued inpatient stay Substantial Risk for: rapid decompensation Time Spent With Patient Time: Total time managing care of this patient today ____ minutes.
[2023-02-28 19:50] VITALS: BP 130/65; PULSE 101; RESP 19; TEMP 36.3; O2SAT 96
[2023-03-01 08:57] VITALS: BP 142/81; PULSE 87; RESP 16; TEMP 36.9; O2SAT 97
[2023-03-01] MEDS: Sertraline HCL 25 MG TABLET PO (08:58)
[2023-03-01] MEDS: OLANZapine 10 MG TABLET 20 MG PO (08:58)
--- NOTE | 2023-03-01 09:21 | P.PNPSI_ITS ---
Subjective Subjective Date of Service: 03/01/23 Reason For Visit: pyschosis Subjective Notes: Conditional Voluntary Interim History: Reviewed in team and . Patient reports feeling good today. He continues to report auditory hallucinations; pt stated, the voices are quieter now, they don't bother me. I've had voices since I was a kid . Patient reports he feels ready to return home and work. Denies SI/HI/VH. Medication Compliance: Yes Side effects from medications: No Attending Groups: No Review of Systems Constitutional: Reports as per HPI Eyes: Reports as per HPI Reports as per HPI Cardiovascular: Reports as per HPI Respiratory: Reports as per HPI Gastrointestinal: Reports as per HPI Genitourinary: Reports as per HPI Musculoskeletal: Reports as per HPI Skin/Breast: Reports as per HPI Reports as per HPI Psychiatric: Reports as per HPI Endocrine: Reports as per HPI Hematologic/Lymphatic: Reports as per HPI Allergic/Immunologic: Reports as per HPI Mental Status Exam Mental Status Exam Narrative: Pt is alert and oriented; behavior is cooperative, friendly and calm; dressed in casual attire; mood is described as good ; eye contact appropriate; Speech is normal rate, volume and prosody and not pressured; no psychomotor agitation/retardation present; thought process is organized; Thought content is on discharge; otherwise pertinent to relevant topics and without any delusional content, paranoid ideations or grandiosity; denies SI/HI. Pt reports auditory hallucinations; pt stated, the voices are quieter now, they don't bother me . denies VH. Patients insight and judgment are fair. Diagnostics Vital Signs (24Hr): Vital Signs - 24 hr 02/28/23 19:50 03/01/23 08:57 Temperature 97.4 F 98.4 F Pulse Rate 101 H 87 Respiratory Rate 19 16 Blood Pressure 130/65 142/81 H Pulse Oximetry 96 97 Oxygen Delivery Method Room Air Room Air BMI result Body Mass Index 46.5 Labs 02/20/23 21:40 02/23/23 08:10 Medications Medications Current Medications Acetaminophen (Acetaminophen 325 Mg Tablet) 650 mg PO Q6H PRN PRN Reason: Headache/Pain Mild Scale (1-3) Al Hydroxide/Mg Hydroxide (Magnesium Hydrox/Alum Hydrox 30 Ml Oral.Susp) 30 ml PO Q6H PRN PRN Reason: Heartburn/Nausea Hydroxyzine HCl (Hydroxyzine Hcl 25 Mg Tablet) 25 mg PO Q6H PRN PRN Reason: Anxiety Magnesium Hydroxide (Milk Of Magnesia 30 Ml Oral.Susp) 30 ml PO DAILY PRN PRN Reason: Constipation Olanzapine (Olanzapine 10 Mg Tablet) 20 mg PO DAILY [facility] Last Admin: 03/01/23 08:58 Dose: 20 mg Sertraline HCl (Sertraline Hcl 25 Mg Tablet) 25 mg PO DAILY [facility] Last Admin: 03/01/23 08:58 Dose: 25 mg Trazodone HCl (Trazodone Hcl 50 Mg Tablet) 50 mg PO BEDTIME MRX1 PRN PRN Reason: Insomnia Last Admin: 02/22/23 21:29 Dose: 50 mg Allergies Allergies Allergy/AdvReac Type Severity Reaction Status Date / Time Penicillins [PENICILLINS] Allergy Unknown RASH Verified 05/19/21 07:39 Assessment & Plan Assessment & Plan (1) Schizophrenia: Status: Acute Code(s): F20.9 - Schizophrenia, unspecified Plan Patient is a 27 year old male with hx of schizophrenia and multiple inpatient hospitalizations who was brought into [facility] via [facility] on a [address] secondary to medication noncompliance and bizarre behavior. Plan: CV 15 minute safety checks Continue home medications Obtain collateral from outpatient provider Obtain collateral from [facility] worker 02/24: Patient presents less guarded today. Patient stated, I'm feeling ok. I'm staying in bed because I don't like to be around people. I don't want to make any connections with people here, it keeps me away from trouble. I like to be alone . Patient reports having auditory hallucinations; he stated, I've had voices since I was a kid. They are only scary if I take marijuana, other than that they help me . When asked if he has visual hallucinations; pt stated, they don't play that hard with me . denies SI/HI. Continue current tx plan. 02/25: Patient reports feeling good today. Patient stated, I wasn't mad at my mom; she just talks a lot and I kicked her out of my room. I work at [employer] and I'm tired when I get home . He continues to report auditory hallucinations that he states are not bothersome. Pt keeping to self, not attending groups but medication compliant. mechanical repair worker to reach out to mother to verify she is okay with him returning home. Educated patient on the importance of medication compliance once discharged. 02/26: stable, improved. continue current mgmt. AH continue. planning for discharge early next week. 02/27: same presentation as yesterday. no change in plan. 02/28: stable. continue current mgmt. 03/01: Patient reports feeling good today. He continues to report auditory hallucinations; pt stated, the voices are quieter now, they don't bother me. I've had voices since I was a kid . Patient reports he feels ready to return home and work. Denies SI/HI/VH. Spoke to patients sister who plans on visiting patient to determine if he has returned to baseline. She would like patient to agree to visiting nurse and is going to attempt to obtain [place] order since patient has hx of stopping medications. Will speak with sister again tomorrow; will aim for discharge this week. Continue current tx plan. Patient educated on: diagnosis, medication risk/benefits and therapeutic strategies Informed Consent: understands Reason for continued inpatient stay Substantial Risk for: med/psych decompensation Time Spent With Patient Time: Total time managing care of this patient today _30___ minutes.
[2023-03-01 21:35] VITALS: BP 108/57; PULSE 93; TEMP 36.4; O2SAT 97
[2023-03-01] MEDS: traZODone HCL 50 MG TABLET PO (22:09)
[2023-03-02 06:00] VITALS: BP 115/55; PULSE 75; RESP 18; TEMP 36.3; O2SAT 96
[2023-03-02] MEDS: OLANZapine 10 MG TABLET 20 MG PO (08:31)
[2023-03-02] MEDS: Sertraline HCL 25 MG TABLET PO (08:31)
--- NOTE | 2023-03-02 09:39 | P.PNPSI_ITS ---
Subjective Subjective Date of Service: 03/02/23 Reason For Visit: pyschosis Subjective Notes: Conditional Voluntary Interim History: Reviewed in team and . Patient continues to report feeling good today. He continues to report auditory hallucinations; pt stated, they are quiet, they don't bother me . T/W spoke with patients sister, Niharika, with patients verbal consent. Jeannie reports she was unable to visit Julio yesterday, however plans on visiting this afternoon. She was happy to know that Julio agreed to a visiting RN. Patients sister stated that she is not going to go for a Morataya order and I'm going to give him another chance to take his medications like he is supposed to . Plan is to discharge patient home this week. Medication Compliance: Yes Side effects from medications: No Attending Groups: No Review of Systems Constitutional: Reports as per HPI Eyes: Reports as per HPI Reports as per HPI Cardiovascular: Reports as per HPI Respiratory: Reports as per HPI Gastrointestinal: Reports as per HPI Genitourinary: Reports as per HPI Musculoskeletal: Reports as per HPI Skin/Breast: Reports as per HPI Reports as per HPI Psychiatric: Reports as per HPI Endocrine: Reports as per HPI Hematologic/Lymphatic: Reports as per HPI Allergic/Immunologic: Reports as per HPI Mental Status Exam Mental Status Exam Narrative: Pt is alert and oriented; behavior is cooperative, friendly and calm; dressed in casual attire; mood is described as good ; eye contact appropriate; Speech is normal rate, volume and prosody and not pressured; no psychomotor agitation/retardation present; thought process is organized; Thought content is on discharge; otherwise pertinent to relevant topics and without any delusional content, paranoid ideations or grandiosity; denies SI/HI. Pt reports auditory hallucinations; pt stated, the voices are quieter now, they don't bother me . denies VH. Patients insight and judgment are fair. Diagnostics Vital Signs (24Hr): Vital Signs - 24 hr 03/01/23 21:35 03/02/23 06:00 Temperature 97.6 F 97.3 F Pulse Rate 93 75 Respiratory Rate 18 Blood Pressure 108/57 L 115/55 L Pulse Oximetry 97 96 Oxygen Delivery Method Room Air Room Air BMI result Body Mass Index 46.5 Labs 02/20/23 21:40 02/23/23 08:10 Medications Medications Current Medications Acetaminophen (Acetaminophen 325 Mg Tablet) 650 mg PO Q6H PRN PRN Reason: Headache/Pain Mild Scale (1-3) Al Hydroxide/Mg Hydroxide (Magnesium Hydrox/Alum Hydrox 30 Ml Oral.Susp) 30 ml PO Q6H PRN PRN Reason: Heartburn/Nausea Hydroxyzine HCl (Hydroxyzine Hcl 25 Mg Tablet) 25 mg PO Q6H PRN PRN Reason: Anxiety Magnesium Hydroxide (Milk Of Magnesia 30 Ml Oral.Susp) 30 ml PO DAILY PRN PRN Reason: Constipation Olanzapine (Olanzapine 10 Mg Tablet) 20 mg PO DAILY KYLE Last Admin: 03/02/23 08:31 Dose: 20 mg Sertraline HCl (Sertraline Hcl 25 Mg Tablet) 25 mg PO DAILY KYLE Last Admin: 03/02/23 08:31 Dose: 25 mg Trazodone HCl (Trazodone Hcl 50 Mg Tablet) 50 mg PO BEDTIME MRX1 PRN PRN Reason: Insomnia Last Admin: 03/01/23 22:09 Dose: 50 mg Allergies Allergies Allergy/AdvReac Type Severity Reaction Status Date / Time Penicillins [PENICILLINS] Allergy Unknown RASH Verified 05/19/21 07:39 Assessment & Plan Assessment & Plan (1) Schizophrenia: Status: Acute Code(s): F20.9 - Schizophrenia, unspecified Plan Patient is a 27 year old male with hx of schizophrenia and multiple inpatient hospitalizations who was brought into [facility] via [facility] on a [address] secondary to medication noncompliance and bizarre behavior. Plan: CV 15 minute safety checks Continue home medications Obtain collateral from outpatient provider Obtain collateral from [facility] worker 02/24: Patient presents less guarded today. Patient stated, I'm feeling ok. I'm staying in bed because I don't like to be around people. I don't want to make any connections with people here, it keeps me away from trouble. I like to be alone . Patient reports having auditory hallucinations; he stated, I've had voices since I was a kid. They are only scary if I take marijuana, other than that they help me . When asked if he has visual hallucinations; pt stated, they don't play that hard with me . denies SI/HI. Continue current tx plan. 02/25: Patient reports feeling good today. Patient stated, I wasn't mad at my mom; she just talks a lot and I kicked her out of my room. I work at [employer] and I'm tired when I get home . He continues to report auditory hallucinations that he states are not bothersome. Pt keeping to self, not attending groups but medication compliant. [employer] worker to reach out to mother to verify she is okay with him returning home. Educated patient on the importance of medication compliance once discharged. 02/26: stable, improved. continue current mgmt. AH continue. planning for discharge early next week. 02/27: same presentation as yesterday. no change in plan. 02/28: stable. continue current mgmt. 03/01: Patient reports feeling good today. He continues to report auditory hallucinations; pt stated, the voices are quieter now, they don't bother me. I've had voices since I was a kid . Patient reports he feels ready to return home and work. Denies SI/HI/VH. Spoke to patients sister who plans on visiting patient to determine if he has returned to baseline. She would like patient to agree to visiting nurse and is going to attempt to obtain Morataya order since patient has hx of stopping medications. Will speak with sister again tomorrow; will aim for discharge this week. Continue current tx plan. 03/02: Patient continues to report feeling good today. He continues to report auditory hallucinations; pt stated, they are quiet, they don't bother me . T/W spoke with patients sister, Niharika, with patients verbal consent. Jeannie reports she was unable to visit Juilo yesterday, however plans on visiting this afternoon. She was happy to know that Julio agreed to a visiting RN. Patients sister stated that she is not going to go for a Morataya order and I'm going to give him another chance to take his medications like he is supposed to . Plan is to discharge patient home this week. Patient educated on: diagnosis, medication risk/benefits and therapeutic strategies Informed Consent: understands Reason for continued inpatient stay Substantial Risk for: med/psych decompensation Time Spent With Patient Time: Total time managing care of this patient today _30___ minutes.
[2023-03-02 18:00] VITALS: BP 122/71; PULSE 110; RESP 18; O2SAT 99
[2023-03-03] MEDS: Sertraline HCL 25 MG TABLET PO (09:13)
[2023-03-03] MEDS: OLANZapine 10 MG TABLET 20 MG PO (09:13)
[2023-03-03 09:30] VITALS: BP 121/75; PULSE 106; RESP 18; TEMP 36.2; O2SAT 96
--- NOTE | 2023-03-03 16:15 | HO.PSYCHPN ---
Subjective Subjective Date of Service: 03/03/23 Reason For Visit: pyschosis Subjective Notes: Conditional Voluntary Interim History: Reviewed in team and . Patient continues to report feeling good today. He continues to report auditory hallucinations; pt stated, they are quiet, they don't bother me . Pt reports he is looking forward to going home and returning to work. Denies SI/HI/VH. Medication Compliance: Yes Side effects from medications: No Attending Groups: No Review of Systems Constitutional: Reports as per HPI Eyes: Reports as per HPI Reports as per HPI Cardiovascular: Reports as per HPI Respiratory: Reports as per HPI Gastrointestinal: Reports as per HPI Genitourinary: Reports as per HPI Musculoskeletal: Reports as per HPI Skin/Breast: Reports as per HPI Reports as per HPI Psychiatric: Reports as per HPI Endocrine: Reports as per HPI Hematologic/Lymphatic: Reports as per HPI Allergic/Immunologic: Reports as per HPI Mental Status Exam Mental Status Exam Narrative: Pt is alert and oriented; behavior is cooperative, friendly and calm; dressed in casual attire; mood is described as good ; eye contact appropriate; Speech is normal rate, volume and prosody and not pressured; no psychomotor agitation/retardation present; thought process is organized; Thought content is on discharge; otherwise pertinent to relevant topics and without any delusional content, paranoid ideations or grandiosity; denies SI/HI. Pt reports auditory hallucinations; pt stated, the voices are quieter now, they don't bother me . denies VH. Patients insight and judgment are fair. Diagnostics Vital Signs (24Hr): Vital Signs - 24 hr 03/02/23 18:00 03/03/23 09:30 Temperature 97.1 F Pulse Rate 110 H 106 H Respiratory Rate 18 18 Blood Pressure 122/71 121/75 Pulse Oximetry 99 96 Oxygen Delivery Method Room Air Room Air BMI result Body Mass Index 46.5 Labs 02/20/23 21:40 02/23/23 08:10 Medications Medications Current Medications Acetaminophen (Acetaminophen 325 Mg Tablet) 650 mg PO Q6H PRN PRN Reason: Headache/Pain Mild Scale (1-3) Al Hydroxide/Mg Hydroxide (Magnesium Hydrox/Alum Hydrox 30 Ml Oral.Susp) 30 ml PO Q6H PRN PRN Reason: Heartburn/Nausea Hydroxyzine HCl (Hydroxyzine Hcl 25 Mg Tablet) 25 mg PO Q6H PRN PRN Reason: Anxiety Magnesium Hydroxide (Milk Of Magnesia 30 Ml Oral.Susp) 30 ml PO DAILY PRN PRN Reason: Constipation Olanzapine (Olanzapine 10 Mg Tablet) 20 mg PO DAILY KYLE Last Admin: 03/03/23 09:13 Dose: 20 mg Sertraline HCl (Sertraline Hcl 25 Mg Tablet) 25 mg PO DAILY KYLE Last Admin: 03/03/23 09:13 Dose: 25 mg Trazodone HCl (Trazodone Hcl 50 Mg Tablet) 50 mg PO BEDTIME MRX1 PRN PRN Reason: Insomnia Last Admin: 03/01/23 22:09 Dose: 50 mg Allergies Allergies Allergy/AdvReac Type Severity Reaction Status Date / Time Penicillins [PENICILLINS] Allergy Unknown RASH Verified 05/19/21 07:39 Assessment & Plan Assessment & Plan (1) Schizophrenia: Status: Acute Code(s): F20.9 - Schizophrenia, unspecified Plan Patient is a 27 year old male with hx of schizophrenia and multiple inpatient hospitalizations who was brought into [facility] via [facility] on a [address] secondary to medication noncompliance and bizarre behavior. Plan: CV 15 minute safety checks Continue home medications Obtain collateral from outpatient provider Obtain collateral from [facility] worker 02/24: Patient presents less guarded today. Patient stated, I'm feeling ok. I'm staying in bed because I don't like to be around people. I don't want to make any connections with people here, it keeps me away from trouble. I like to be alone . Patient reports having auditory hallucinations; he stated, I've had voices since I was a kid. They are only scary if I take marijuana, other than that they help me . When asked if he has visual hallucinations; pt stated, they don't play that hard with me . denies SI/HI. Continue current tx plan. 02/25: Patient reports feeling good today. Patient stated, I wasn't mad at my mom; she just talks a lot and I kicked her out of my room. I work at [employer] and I'm tired when I get home . He continues to report auditory hallucinations that he states are not bothersome. Pt keeping to self, not attending groups but medication compliant. mobile home lot utility worker to reach out to mother to verify she is okay with him returning home. Educated patient on the importance of medication compliance once discharged. 02/26: stable, improved. continue current mgmt. AH continue. planning for discharge early next week. 02/27: same presentation as yesterday. no change in plan. 02/28: stable. continue current mgmt. 03/01: Patient reports feeling good today. He continues to report auditory hallucinations; pt stated, the voices are quieter now, they don't bother me. I've had voices since I was a kid . Patient reports he feels ready to return home and work. Denies SI/HI/VH. Spoke to patients sister who plans on visiting patient to determine if he has returned to baseline. She would like patient to agree to visiting nurse and is going to attempt to obtain Morataya order since patient has hx of stopping medications. Will speak with sister again tomorrow; will aim for discharge this week. Continue current tx plan. 03/02: Patient continues to report feeling good today. He continues to report auditory hallucinations; pt stated, they are quiet, they don't bother me . T/W spoke with patients sister, Niharika, with patients verbal consent. Jeannie reports she was unable to visit Julio yesterday, however plans on visiting this afternoon. She was happy to know that Julio agreed to a visiting RN. Patients sister stated that she is not going to go for a Morataya order and I'm going to give him another chance to take his medications like he is supposed to . Plan is to discharge patient home this week. 03/03: Patient continues to report feeling good today. He continues to report auditory hallucinations; pt stated, they are quiet, they don't bother me . Pt reports he is looking forward to going home and returning to work. Denies SI/HI/VH. Plan to dc home tomorrow. Patient educated on: diagnosis, medication risk/benefits and therapeutic strategies Informed Consent: understands Reason for continued inpatient stay Substantial Risk for: stable for discharge Time Spent With Patient Time: Total time managing care of this patient today _30___ minutes.
[2023-03-03] MEDS: traZODone HCL 50 MG TABLET PO (19:50)
[2023-03-03 19:55] VITALS: BP 106/55; PULSE 110; TEMP 36.2; O2SAT 96
[2023-03-04 08:40] VITALS: BP 113/63; PULSE 81; RESP 20; TEMP 36.2; O2SAT 96
[2023-03-04] MEDS: Sertraline HCL 25 MG TABLET PO (08:40)
[2023-03-04] MEDS: OLANZapine 10 MG TABLET 20 MG PO (08:40)
--- NOTE | 2023-03-04 09:12 | P.DS_ITS ---
DS: Providers Provider Date of Service: 03/04/23 Date of admission: 02/22/23 20:08 Date of discharge: 03/04/23 Primary care physician: Unknown Physician Admitting clinician: Natalya Sellers Attending physician on admission: Mario Alberto Tran Attending physician on discharge: Jr Hernandez Discharging clinician: Natalya Sellers DS: Diagnosis Discharge Diagnosis (1) Schizophrenia: Status: Acute DS: Medications Discharge Medications Home Medications: Home Medications Medication Instructions Recorded Confirmed olanzapine 20 mg tablet 20 mg PO DAILY 02/20/23 02/20/23 propranolol 10 mg tablet 10 mg PO DAILY 02/20/23 02/20/23 sertraline 50 mg tablet 50 mg PO DAILY 02/20/23 02/22/23 Mental Status Exam Mental Status Exam Narrative: Pt is alert and oriented; behavior is cooperative, friendly and calm; dressed in casual attire; mood is described as good ; eye contact appropriate; Speech is normal rate, volume and prosody and not pressured; no psychomotor agitation/retardation present; thought process is organized and goal directed; Thought content is on tx; otherwise pertinent to relevant topics and without any delusional content, paranoid ideations or grandiosity; denies SI/HI. Pt reports auditory hallucinations that are quiet and not bothersome . Denies VH. Patients insight and judgment are fair. DS: Summary Hospital Course Hospital Course: Patient is a 27 year old male with hx of schizophrenia and multiple inpatient hospitalizations who was brought into [facility] via [facility] on a [address] secondary to medication noncompliance and bizarre behavior. According to crisis report, patient family reported pt has not been taking his medications for the past few months and has been isolating to his room, not attending to ADLs, hearing voices and talking to himself and exhibited aggressive behavior towards his mother. During admission assessment, pt presents guarded and brief. Patient appeared to be internally preoccupied and having thought blocking; when asked if he was experiencing auditory hallucinations patient stated no . T/W would repeat questions multiple times d/t patient's thought process. Patient reports feeling alright ; he stated, I stopped the medication because it made me tired all the time. I don't think I need medication . Patient reports he would be willing to take medications while in the hospital but does not know if he will take them when discharged. denies SI/HI/VH/AH at this time. During hospital stay, Patient presents less guarded today. Patient stated, I'm feeling ok. I'm staying in bed because I don't like to be around people. I don't want to make any connections with people here, it keeps me away from trouble. I like to be alone . Patient reports having auditory hallucinations; he stated, I've had voices since I was a kid. They are only scary if I take marijuana, other than that they help me . When asked if he has visual hallucinations; pt stated, they don't play that hard with me . denies SI/HI. Patient reports feeling good today. Patient stated, I wasn't mad at my mom; she just talks a lot and I kicked her out of my room. I work at [employer] and I'm tired when I get home . He continues to report auditory hallucinations that he states are not bothersome. Pt keeping to self, not attending groups but medication compliant. pet crematory worker to reach out to mother to verify she is okay with him returning home. Educated patient on the importance of medication compliance once discharged. Patient reports feeling good today. He continues to report auditory hallucinations; pt stated, the voices are quieter now, they don't bother me. I've had voices since I was a kid . Patient reports he feels ready to return home and work. Denies SI/HI/VH. Spoke to patients sister who plans on visiting patient to determine if he has returned to baseline. She would like patient to agree to visiting nurse and is going to attempt to obtain Morataya order since patient has hx of stopping medications. Will speak with sister again tomorrow; will aim for discharge this week. T/W spoke with patients sister, Niharika, with patients verbal consent. Jeannie reports she was unable to visit Julio yesterday, however plans on visiting this afternoon. She was happy to know that Julio agreed to a visiting RN. Patients sister stated that she is not going to go for a Morataya order and I'm going to give him another chance to take his medications like he is supposed to . Patient continues to report feeling good today. He continues to report auditory hallucinations; pt stated, they are quiet, they don't bother me . Pt reports he is looking forward to going home and returning to work. Denies SI/HI/VH. Plan to dc home and follow up with outpatient providers and visiting nurse. Time spent discussing smoking cessation with patient: 3 to 10 minutes Status at Discharge Cognitive/behavioral status at discharge: Patient was interviewed prior to discharge and found to be fully oriented and without any SI or HI. Patient has insight and demonstrates good judgment in terms of wanting to pursue treatment. Patient is not in imminent risk of harm to self or others and has a safety plan that includes presenting to the closest ER or calling 911 if feeling unsafe. Patient has been observed closely by nursing and unit staff throughout admission; patient has not engaged in any behaviors that suggest dangerousness to self or others and has demonstrated appropriate behaviors and impulse control. Functional status at discharge: independent ambulation Overall status at discharge: patient is back to baseline Time Spent with Patient Time attestation: Total time managing care of this patient today _30___ minutes. Time spent: Less than 30 minutes Discharge Plan Discharge Anticipated Discharge Date/Time: 03/04/23 10:30 Patient Disposition: Home, Self-Care Discharge Diagnosis: Schizophrenia d/o Referrals: [facility] [Other] - 03/30/23 9:00 am (Dr. Madsen- prescriber) Physician,Unknown J [Primary Care Provider] - 03/05/23 2:45 pm (PCP follow up appt. for 03/05/23 at 2:45pm arrive at 2:30pm [address] [place] [address]) Discharge Medications: New sertraline 25 mg Tablet 25 mg PO DAILY 30 Days Qty: 30 0RF olanzapine 10 mg Tablet 20 mg PO DAILY 30 Days Qty: 60 0RF Discontinued propranolol 10 mg tablet 10 mg PO DAILY sertraline 50 mg tablet 50 mg PO DAILY olanzapine 20 mg tablet 20 mg PO DAILY Discharge Orders: Discharge Order (Routine); Ordered 03/04/23 Ordered By: Natalya Sellers Diet: Regular diet Activity on Discharge: As tolerated Stand Alone Forms: Patient Portal Discharge page, Community Support Care Plan Goals: Maintain mood and safe behaviors Take medications as prescribed Practice coping skills Continue with outpatient providers and reach out to them as needed Health Concerns: Mood stability and behaviors Plan of Treatment: Follow up with your PCP, psychiatric provider and other outpatient providers regarding above concerns Take medications as prescribed Assessment: Patient was interviewed prior to discharge and found to be fully oriented and without any SI or HI. Patient has insight and demonstrates good judgment in terms of wanting to pursue treatment. Patient is not in imminent risk of harm to self or others and has a safety plan that includes presenting to the closest ER or calling 911 if feeling unsafe. Patient has been observed closely by nursing and unit staff throughout admission; patient has not engaged in any behaviors that suggest dangerousness to self or others and has demonstrated appropriate behaviors and impulse control. and unit staff throughout admission; patient has not engaged in any behaviors that suggest dangerousness to self or others and has demonstrated appropriate behaviors and impulse control.
== END 2023-03-04 10:55 | disposition home or self-care (01) | DRG 885 ==
LOC: HO.ED 21:52 → HO.PADLT16 02-22 20:18
PROVIDERS: Admitting Provider Social Worker; Emergency Provider Emergency Medicine; Responsible Provider Registered Nurse; Visit Provider Psychiatry & Neurology Psychiatry
DX: F20.9 Schizophrenia, unspecified (principal); Z20.822 Contact with and (suspected) exposure to COVID-19; Z23 Encounter for immunization; Z91.148 Patient's other noncompliance with medication regimen for other reason; Z88.0 Allergy status to penicillin; Z79.899 Other long term (current) drug therapy
CPT/HCPCS: 36415; 80053; 80061; 80307; 81003; 82607; 82746; 83036; 84443; 85025; 87635; 90686; 93005; 99285; S9485

== ENCOUNTER → 2023-02-22 20:08 | Outpatient (BNV) | payer OTHER, SELFPAY | PROVIDERS: Admitting Provider Social Worker; Emergency Provider Emergency Medicine; Responsible Provider Registered Nurse; Visit Provider Registered Nurse | DX: F20.89 Other schizophrenia (principal) | CPT/HCPCS: 90792; 99231; 99232; 99238 ==

== ENCOUNTER 2023-03-24 06:37 | Inpatient (IN) | payer OTHER, SELFPAY ==
[2023-03-24] MEDS: Haloperidol Lactate 5 MG/ML VIAL IM (06:55)
[2023-03-24] MEDS: LORazepam 2 MG/ML VIAL IM (06:55)
[2023-03-24] MEDS: diphenhydrAMINE HCL 50 MG/ML VIAL IM (06:55)
[2023-03-24 07:00] VITALS: BP 131/86; PULSE 98; RESP 18; TEMP 36.3; O2SAT 95
[2023-03-24 07:05] VITALS: BMI 39.7
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
--- NOTE | 2023-03-24 10:27 | MHC.CARE ---
CARE Team left VM with Pts mother for collateral information
[2023-03-24 13:17] LABS: MANUAL DIFF FLAG NO
[2023-03-24 13:19] LABS: Basophils Percent Auto 0.2 % (0-2); Eosinophils Absolute Auto 0.2 X10*3/uL (0.0-0.4); Eosinophils Percent Auto 1.3 % (0-4); Hematocrit 46.4 % (42.0-52.0); Hemoglobin 15.8 g/dl (14.0-18.0); Imm Gran Abs Auto 0.05 X10*3/uL (0.00-0.03); Imm Gran Pct Auto 0.4 % (0.0-0.4); Lymphocytes Percent Auto 23.6 % (20-40); Mean Corpuscular HGB Conc 34.1 g/dl (31.0-36.0); Mean Corpuscular Hemoglobin 30.2 pg (27.0-33.0); Mean Corpuscular Volume 88.7 fL (80.0-98.0); Mean Platelet Volume 9.4 fL (9.4-12.4); Monocytes Absolute Auto 0.9 X10*3/uL (0.1-1.2); Monocytes Percent Auto 7.1 % (2-11); Neutrophils Absolute Auto 8.5 x10*3/uL (2.0-8.3); Neutrophils Percent Auto 67.4 % (45-73); Platelet Count 353 X10*3/uL (160-400); Red Blood Count 5.23 X10*6/uL (4.60-5.80); Red Cell Distribution Width 12.4 % (11.0-16.0); White Blood Count 12.7 X10*3/uL (4.8-10.8)
[2023-03-24 13:33] LABS: COVID-19 Test Negative (Negative); IDNOW Serial# 55D5AD1C
[2023-03-24 13:49] LABS: Alanine Aminotransferase 71 U/L (0-40); Albumin Level 4.9 g/dL (3.5-5.0); Alkaline Phosphatase 65 U/L (39-117); Anion Gap 17 (12-20); Aspartate Amino Transferase 37 U/L (5-37); Bilirubin Total 0.5 mg/dL (0.0-1.0); Blood Urea Nitrogen 13 mg/dL (9-16); Calcium 10.9 mg/dL (8.4-10.2); Carbon Dioxide 26 mmol/L (22-29); Chloride 103 mmol/L (96-108); Creatinine Clr Calc Pharmacy 179.4; Estimated Glomerular Filt Rate > 60; Ethanol < 10 mg/dL; Glucose Random 95 mg/dL (60-115); Potassium 3.9 mmol/L (3.3-5.1); Sodium 142 mmol/L (135-145)
[2023-03-24 13:50] LABS: Acetaminophen LAB < 17 mcg/mL (<30); Salicylate < 5.0 mg/dL (15-30)
[2023-03-24 14:14] VITALS: RESP 18
[2023-03-24 15:23] LABS: Appearance Urine Clear; Color Urine Yellow; Glucose Urine UA Negative (Negative); Leukocyte Esterase Urine Negative (Negative); Nitrite Urine Negative (Negative); Specific Gravity - Urine >= 1.030 (1.005-1.025); Urine Blood Negative (Negative); Urine Ketones Trace mg/dL (Negative); Urine Protein Trace mg/dL (Neg-Trace)
[2023-03-24 15:41] LABS: Amphetamine Screen Urine Not Detected (Not Detect); Barbiturates, Urine Not Detected (Not Detect); Benzodiazepines Screen Urine Not Detected (Not Detect); Cannabinoid Screen Urine POSITIVE (Not Detect); Cocaine Screen Urine Not Detected (Not Detect); Fentanyl, urine Not Detected (Not Detect); Opiate Screen Urine Not Detected (Not Detect); Phencyclidine Screen Urine Not Detected (Not Detect)
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
--- NOTE | 2023-03-24 17:29 | MHC.CARE ---
CV presented, pt declined a voluntary admission.
[2023-03-24 21:45] VITALS: BP 130/74; PULSE 99; RESP 18; TEMP 36.1; O2SAT 96
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
[2023-03-25 07:00] VITALS: BMI 40.6
[2023-03-25 07:04] VITALS: BP 136/83; PULSE 105; RESP 16; TEMP 36.9; O2SAT 97
[2023-03-25 08:58] LABS: Estimated Average Glucose 111 mg/dL; Hemoglobin A1c % 5.5 % (<6.0)
[2023-03-25 09:16] LABS: Alanine Aminotransferase 69 U/L (0-40); Albumin Level 4.6 g/dL (3.5-5.0); Alkaline Phosphatase 60 U/L (39-117); Anion Gap 15 (12-20); Aspartate Amino Transferase 40 U/L (5-37); Bilirubin Total 0.2 mg/dL (0.0-1.0); Blood Urea Nitrogen 13 mg/dL (9-16); Calcium 10.6 mg/dL (8.4-10.2); Carbon Dioxide 27 mmol/L (22-29); Chloride 104 mmol/L (96-108); Cholesterol 148 mg/dL (<200); Estimated Glomerular Filt Rate > 60; Glucose Fasting 105 mg/dL (60-99); HDL Cholesterol 28 mg/dL (>40); LDL Cholesterol Calculated 105 mg/dL (<100); Magnesium 2.1 mg/dL (1.6-2.6); Potassium 4.1 mmol/L (3.3-5.1); Sodium 142 mmol/L (135-145); Total Protein 8.4 g/dL (6.5-8.0); Triglycerides 79 mg/dL (<150)
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
[2023-03-25 09:31] LABS: Free T4 (Free Thyroxine) 1.03 ng/dL (0.71-1.85); Thyroid Stimulating Hormone 1.48 uIU/mL (0.32-4.0)
[2023-03-25 09:44] LABS: Folate 14.6 ng/mL (> or = 4.0); Vitamin B12 739 pg/mL (200-900)
[2023-03-25] MEDS: HaloperidoL 5 MG TABLET PO ×2 (15:58→21:05)
[2023-03-25] MEDS: diphenhydrAMINE HCL 25 MG CAPSULE 50 MG PO ×2 (15:58→21:05)
[2023-03-25 18:00] VITALS: BP 126/61; PULSE 84; RESP 16; TEMP 36.4; O2SAT 98
[2023-03-26 08:22] VITALS: BP 119/57; PULSE 90; RESP 18; TEMP 36.6; O2SAT 96
[2023-03-26] MEDS: diphenhydrAMINE HCL 25 MG CAPSULE 50 MG PO ×2 (08:41→22:22)
[2023-03-26] MEDS: HaloperidoL 5 MG TABLET PO ×2 (08:41→22:22)
--- NOTE | 2023-03-26 11:07 | HO.PSYCHPN ---
Subjective Subjective Date of Service: 03/26/23 Reason For Visit: Schizophrenia Interim History: calm, cooperative. resting on his mattress on the floor. denies any problems, no questions or concerns. denies any side effects from medications, no salutary effects either. agreeable to continue with current plan. per staff, suspicious, denies psych Sx. what? what? what? while looking aside. showered took meds. Mental Status Exam Mental Status Exam Narrative: Pt is alert and oriented; behavior is cooperative and calm; dressed in casual attire; mood is described as good ; eye contact appropriate; Speech is normal rate, volume and prosody and not pressured; no psychomotor agitation/retardation present; thought process is organized and goal directed; Thought content is on tx; otherwise pertinent to relevant topics and without any delusional content, paranoid ideations or grandiosity; no SI/HI/AVH expressed. Patients insight and judgment are impaired. Diagnostics Vital Signs (24Hr): Vital Signs - 24 hr 03/25/23 18:00 03/26/23 08:22 Temperature 97.5 F 97.8 F Pulse Rate 84 90 Respiratory Rate 16 18 Blood Pressure 126/61 119/57 L Pulse Oximetry 98 96 Oxygen Delivery Method Room Air Room Air BMI result Body Mass Index 40.6 Labs 03/24/23 13:12 03/25/23 08:29 Labs: Laboratory Results - last 48 hr 03/24/23 03/24/23 03/25/23 13:12 15:15 08:28 WBC 12.7 H RBC 5.23 Hgb 15.8 Hct 46.4 MCV 88.7 MCH 30.2 MCHC 34.1 RDW 12.4 Plt Count 353 MPV 9.4 Immature Gran % (Auto) 0.4 Neut % (Auto) 67.4 Lymph % (Auto) 23.6 [place] % (Auto) 7.1 Eos % (Auto) 1.3 Baso % (Auto) 0.2 Lymph # (Auto) 3.0 [place] # (Auto) 0.9 Eos # (Auto) 0.2 Baso # (Auto) 0.0 Abs Immat Gran (auto) 0.05 H Absolute Neuts (auto) 8.5 H Absolute Nucleated RBC 0.000 Nucleated RBC % (auto) 0.0 Sodium 142 Potassium 3.9 Chloride 103 Carbon Dioxide 26 Anion Gap 17 BUN 13 Creatinine 0.84 Estim Creat Clear Calc 179.4 Estimated GFR > 60 Random Glucose 95 Fasting Glucose Estimat Average Glucose 111 Hemoglobin A1c % 5.5 Calcium 10.9 H Magnesium Total Bilirubin 0.5 AST 37 ALT 71 H Alkaline Phosphatase 65 Total Protein 9.0 H Albumin 4.9 Triglycerides Cholesterol LDL Cholesterol, Calc HDL Cholesterol Vitamin B12 739 Folate 14.6 TSH Free T4 Urine Color Yellow Urine Appearance Clear Urine pH 6.0 Ur Specific [place] >= 1.030 H Urine Protein Trace Urine Glucose (UA) Negative Urine Ketones Trace Urine Blood Negative Urine Nitrite Negative Ur Leukocyte Esterase Negative Salicylates < 5.0 L Urine Opiates Screen Not Detected Urine Fentanyl Screen Not Detected Acetaminophen < 17 Ur Barbiturates Screen Not Detected Ur Phencyclidine Scrn Not Detected Ur Amphetamines Screen Not Detected U Benzodiazepines Scrn Not Detected Urine Cocaine Screen Not Detected U Marijuana (THC) Screen POSITIVE H Ethyl Alcohol < 10 COVID-19 (RUBÉN) Negative COVID-19 [employer] See Note 03/25/23 08:29 WBC RBC Hgb Hct MCV MCH MCHC RDW Plt Count MPV Immature Gran % (Auto) Neut % (Auto) Lymph % (Auto) [place] % (Auto) Eos % (Auto) Baso % (Auto) Lymph # (Auto) [place] # (Auto) Eos # (Auto) Baso # (Auto) Abs Immat Gran (auto) Absolute Neuts (auto) Absolute Nucleated RBC Nucleated RBC % (auto) Sodium 142 Potassium 4.1 Chloride 104 Carbon Dioxide 27 Anion Gap 15 BUN 13 Creatinine 0.93 Estim Creat Clear Calc 162.0 Estimated GFR > 60 Random Glucose Fasting Glucose 105 H Estimat Average Glucose Hemoglobin A1c % Calcium 10.6 H Magnesium 2.1 Total Bilirubin 0.2 AST 40 H ALT 69 H Alkaline Phosphatase 60 Total Protein 8.4 H Albumin 4.6 Triglycerides 79 Cholesterol 148 LDL Cholesterol, Calc 105 H HDL Cholesterol 28 L Vitamin B12 Folate TSH 1.48 Free T4 1.03 Urine Color Urine Appearance Urine pH Ur Specific [place] Urine Protein Urine Glucose (UA) Urine Ketones Urine Blood Urine Nitrite Ur Leukocyte Esterase Salicylates Urine Opiates Screen Urine Fentanyl Screen Acetaminophen Ur Barbiturates Screen Ur Phencyclidine Scrn Ur Amphetamines Screen U Benzodiazepines Scrn Urine Cocaine Screen U Marijuana (THC) Screen Ethyl Alcohol COVID-19 (RUBÉN) COVID-19 [employer] Com Medications Medications Current Medications Acetaminophen (Acetaminophen 325 Mg Tablet) 650 mg PO Q6H PRN PRN Reason: Headache/Pain Mild Scale (1-3) Al Hydroxide/Mg Hydroxide (Magnesium Hydrox/Alum Hydrox 30 Ml Oral.Susp) 30 ml PO Q6H PRN PRN Reason: Heartburn/Nausea Diphenhydramine HCl (Diphenhydramine Hcl 25 Mg Capsule) 50 mg PO BID [facility] Last Admin: 03/26/23 08:41 Dose: 50 mg Haloperidol (Haloperidol 5 Mg Tablet) 5 mg PO Q4H PRN PRN Reason: psychosis Haloperidol (Haloperidol 5 Mg Tablet) 5 mg PO BID [facility] Last Admin: 03/26/23 08:41 Dose: 5 mg Hydroxyzine HCl (Hydroxyzine Hcl 25 Mg Tablet) 25 mg PO Q6H PRN PRN Reason: Anxiety Lorazepam (Lorazepam 1 Mg Tablet) 1 mg PO Q4H PRN PRN Reason: agitation Magnesium Hydroxide (Milk Of Magnesia 30 Ml Oral.Susp) 30 ml PO DAILY PRN PRN Reason: Constipation Trazodone HCl (Trazodone Hcl 50 Mg Tablet) 50 mg PO BEDTIME MRX1 PRN PRN Reason: Insomnia Allergies Allergies Allergy/AdvReac Type Severity Reaction Status Date / Time Penicillins [PENICILLINS] Allergy Unknown RASH Verified 05/19/21 07:39 Assessment & Plan Assessment & Plan (1) Schizophrenia: Status: Acute Code(s): F20.9 - Schizophrenia, unspecified Plan 03/25: start haldol 5 and benadryl 50 BID. had been on zyprexa, which was apparently too sedating. 03/26: denies any effects or side effects. continue current mgmt. Reason for continued inpatient stay Substantial Risk for: harm to self, harm to others, inability to function and rapid decompensation Time Spent With Patient Time: Total time managing care of this patient today ____ minutes.
[2023-03-26 19:45] VITALS: BP 114/58; PULSE 75; RESP 18; TEMP 36.7; O2SAT 97
[2023-03-27 08:15] VITALS: BP 127/77; PULSE 105; RESP 20; TEMP 36.4; O2SAT 96
[2023-03-27] MEDS: HaloperidoL 5 MG TABLET PO ×2 (08:30→21:41)
[2023-03-27] MEDS: diphenhydrAMINE HCL 25 MG CAPSULE 50 MG PO ×2 (08:30→21:41)
--- NOTE | 2023-03-27 09:34 | HO.PSYCHPN ---
Subjective Subjective Date of Service: 03/27/23 Reason For Visit: Schizophrenia Subjective Notes: Section 12B Interim History: Patient was seen and discussed in rounds today. Records and plans were reviewed. Labs were reviewed. He continues to be mostly isolative, in his room, sleeping on the mattress on the floor. He is minimally interactive, disorganized and preoccupied. He refused his a.m. meds yesterday but took the evening ones. Slept only a few hours but does not want to take anything else for sleep. No dangerous behaviors. No changes were made today Medication Compliance: Intermittent Side effects from medications: No Attending Groups: No Review of Systems Review of Systems Yes Unobtainable due to mental status Mental Status Exam Mental Status Exam Narrative: In today's visit he is alert, pleasant, minimally interactive. Speech is soft-spoken. Little eye contact. Affect is appropriate and constricted. He denies hallucinations but appears to be responding to internal stimuli and is preoccupied. No suicidal ideations. Could not be tested cognitively. Judgment could not be assessed Diagnostics Vital Signs (24Hr): Vital Signs - 24 hr 03/26/23 19:45 Temperature 98.0 F Pulse Rate 75 Respiratory Rate 18 Blood Pressure 114/58 L Pulse Oximetry 97 Oxygen Delivery Method Room Air BMI result Body Mass Index 40.6 Labs 03/24/23 13:12 03/25/23 08:29 Labs: Laboratory Results - last 48 hr 03/25/23 08:28 Vitamin B12 739 Folate 14.6 Medications Medications Current Medications Acetaminophen (Acetaminophen 325 Mg Tablet) 650 mg PO Q6H PRN PRN Reason: Headache/Pain Mild Scale (1-3) Al Hydroxide/Mg Hydroxide (Magnesium Hydrox/Alum Hydrox 30 Ml Oral.Susp) 30 ml PO Q6H PRN PRN Reason: Heartburn/Nausea Diphenhydramine HCl (Diphenhydramine Hcl 25 Mg Capsule) 50 mg PO BID [facility] Last Admin: 03/27/23 08:30 Dose: 50 mg Haloperidol (Haloperidol 5 Mg Tablet) 5 mg PO Q4H PRN PRN Reason: psychosis Haloperidol (Haloperidol 5 Mg Tablet) 5 mg PO BID [facility] Last Admin: 03/27/23 08:30 Dose: 5 mg Hydroxyzine HCl (Hydroxyzine Hcl 25 Mg Tablet) 25 mg PO Q6H PRN PRN Reason: Anxiety Lorazepam (Lorazepam 1 Mg Tablet) 1 mg PO Q4H PRN PRN Reason: agitation Magnesium Hydroxide (Milk Of Magnesia 30 Ml Oral.Susp) 30 ml PO DAILY PRN PRN Reason: Constipation Trazodone HCl (Trazodone Hcl 50 Mg Tablet) 50 mg PO BEDTIME MRX1 PRN PRN Reason: Insomnia Allergies Allergies Allergy/AdvReac Type Severity Reaction Status Date / Time Penicillins [PENICILLINS] Allergy Unknown RASH Verified 05/19/21 07:39 Assessment & Plan Assessment & Plan (1) Schizophrenia: Status: Acute Code(s): F20.9 - Schizophrenia, unspecified Plan 03/25: start haldol 5 and benadryl 50 BID. had been on zyprexa, which was apparently too sedating. 03/26: denies any effects or side effects. continue current mgmt. 03/27: Continue current regimen and plans Patient educated on: medication risk/benefits Reason for continued inpatient stay Substantial Risk for: med/psych decompensation Time Spent With Patient Time: Total time managing care of this patient today ____ minutes.
[2023-03-27 19:20] VITALS: BP 137/65; PULSE 92; RESP 16; TEMP 36.3; O2SAT 96
[2023-03-27] MEDS: hydrOXYzine HCL 25 MG TABLET PO (22:20)
[2023-03-28 08:30] VITALS: BP 123/62; PULSE 96; RESP 20; TEMP 36.4; O2SAT 98
--- NOTE | 2023-03-28 08:51 | P.PNPSI_ITS ---
Subjective Subjective Date of Service: 03/28/23 Reason For Visit: Schizophrenia Subjective Notes: Section 12B Interim History: Patient was seen and discussed in rounds today. Records and plans were reviewed. Labs were reviewed. He continues to be sleeping on the floor on his mattress. He is medication compliant. Very little engagement with others and pretty much sleeping all day. I am going to make his daytime Benadryl p.r.n. and put him on some Cogentin for the Haldol side effects. No other changes were made today Medication Compliance: Intermittent Side effects from medications: No Attending Groups: No Review of Systems Review of Systems Yes Unobtainable due to mental status Mental Status Exam Mental Status Exam Narrative: In today's visit he is alert, pleasant, minimally interactive. Speech is soft- spoken. Little eye contact. Affect is appropriate and constricted. He denies hallucinations but appears to be responding to internal stimuli and is preoccupied. No suicidal ideations. Could not be tested cognitively. Judgment could not be assessed Diagnostics Vital Signs (24Hr): Vital Signs - 24 hr 03/27/23 19:20 Temperature 97.3 F Pulse Rate 92 Respiratory Rate 16 Blood Pressure 137/65 Pulse Oximetry 96 Oxygen Delivery Method Room Air BMI result Body Mass Index 40.6 Labs 03/24/23 13:12 03/25/23 08:29 Medications Medications Current Medications Acetaminophen (Acetaminophen 325 Mg Tablet) 650 mg PO Q6H PRN PRN Reason: Headache/Pain Mild Scale (1-3) Al Hydroxide/Mg Hydroxide (Magnesium Hydrox/Alum Hydrox 30 Ml Oral.Susp) 30 ml PO Q6H PRN PRN Reason: Heartburn/Nausea Diphenhydramine HCl (Diphenhydramine Hcl 25 Mg Capsule) 50 mg PO BID [facility] Last Admin: 03/27/23 21:41 Dose: 50 mg Haloperidol (Haloperidol 5 Mg Tablet) 5 mg PO Q4H PRN PRN Reason: psychosis Haloperidol (Haloperidol 5 Mg Tablet) 5 mg PO BID [facility] Last Admin: 03/27/23 21:41 Dose: 5 mg Hydroxyzine HCl (Hydroxyzine Hcl 25 Mg Tablet) 25 mg PO Q6H PRN PRN Reason: Anxiety Last Admin: 03/27/23 22:20 Dose: 25 mg Lorazepam (Lorazepam 1 Mg Tablet) 1 mg PO Q4H PRN PRN Reason: agitation Magnesium Hydroxide (Milk Of Magnesia 30 Ml Oral.Susp) 30 ml PO DAILY PRN PRN Reason: Constipation Trazodone HCl (Trazodone Hcl 50 Mg Tablet) 50 mg PO BEDTIME MRX1 PRN PRN Reason: Insomnia Allergies Allergies Allergy/AdvReac Type Severity Reaction Status Date / Time Penicillins [PENICILLINS] Allergy Unknown RASH Verified 05/19/21 07:39 Assessment & Plan Assessment & Plan (1) Schizophrenia: Status: Acute Code(s): F20.9 - Schizophrenia, unspecified Plan 03/25: start haldol 5 and benadryl 50 BID. had been on zyprexa, which was apparently too sedating. 03/26: denies any effects or side effects. continue current mgmt. 03/27: Continue current regimen and plans 03/28: Continue current regimen and plans. Make is Benadryl p.r.n. and add Cogentin 1 mg b.i.d. and discontinue Vistaril p.r.n. Patient educated on: medication risk/benefits Reason for continued inpatient stay Substantial Risk for: med/psych decompensation Time Spent With Patient Time: Total time managing care of this patient today ____ minutes.
[2023-03-28] MEDS: Benztropine Mesylate 1 MG TABLET PO ×2 (09:23→21:12)
[2023-03-28] MEDS: HaloperidoL 5 MG TABLET PO ×2 (09:24→21:12)
[2023-03-28 19:15] VITALS: BP 130/84; PULSE 107; RESP 14; TEMP 36.1; O2SAT 97
[2023-03-29 07:51] VITALS: BP 112/70; PULSE 90; RESP 14; TEMP 36.8; O2SAT 94
[2023-03-29] MEDS: Benztropine Mesylate 1 MG TABLET PO ×2 (08:35→21:11)
[2023-03-29] MEDS: HaloperidoL 5 MG TABLET PO ×2 (08:35→21:10)
--- NOTE | 2023-03-29 12:57 | HO.PSYCHPN ---
Subjective Subjective Date of Service: 03/29/23 Reason For Visit: Schizophrenia Interim History: reports mood is OK. voices slowing down. paranoia better. taking meds without any problems or side effects. per staff, 12b up today. +AH drive him nuts. slept through the NOC. needs cueing. isolative. took meds all w/e. Mental Status Exam Mental Status Exam Narrative: Pt is alert and oriented; behavior is cooperative and calm; dressed in casual attire; mood is described as OK ; eye contact appropriate; Speech is decr amount, nml rate, volume and prosody and not pressured; no psychomotor agitation/retardation present; thought process is organized and goal directed; Thought content is on tx; otherwise pertinent to relevant topics and without any delusional content, paranoid ideations or grandiosity; no SI/HI/AVH expressed. Patients insight and judgment are impaired. Diagnostics Vital Signs (24Hr): Vital Signs - 24 hr 03/28/23 19:15 03/29/23 07:51 Temperature 96.9 F 98.2 F Pulse Rate 107 H 90 Respiratory Rate 14 14 Blood Pressure 130/84 112/70 Pulse Oximetry 97 94 Oxygen Delivery Method Room Air Room Air BMI result Body Mass Index 40.6 Labs 03/24/23 13:12 03/25/23 08:29 Medications Medications Current Medications Acetaminophen (Acetaminophen 325 Mg Tablet) 650 mg PO Q6H PRN PRN Reason: Headache/Pain Mild Scale (1-3) Al Hydroxide/Mg Hydroxide (Magnesium Hydrox/Alum Hydrox 30 Ml Oral.Susp) 30 ml PO Q6H PRN PRN Reason: Heartburn/Nausea Benztropine Mesylate (Benztropine Mesylate 1 Mg Tablet) 1 mg PO BID [facility] Last Admin: 03/29/23 08:35 Dose: 1 mg Diphenhydramine HCl (Diphenhydramine Hcl 25 Mg Capsule) 50 mg PO BID PRN PRN Reason: Anxiety Haloperidol (Haloperidol 5 Mg Tablet) 5 mg PO Q4H PRN PRN Reason: psychosis Haloperidol (Haloperidol 5 Mg Tablet) 5 mg PO BID [facility] Last Admin: 03/29/23 08:35 Dose: 5 mg Lorazepam (Lorazepam 1 Mg Tablet) 1 mg PO Q4H PRN PRN Reason: agitation Magnesium Hydroxide (Milk Of Magnesia 30 Ml Oral.Susp) 30 ml PO DAILY PRN PRN Reason: Constipation Trazodone HCl (Trazodone Hcl 50 Mg Tablet) 50 mg PO BEDTIME MRX1 PRN PRN Reason: Insomnia Allergies Allergies Allergy/AdvReac Type Severity Reaction Status Date / Time Penicillins [PENICILLINS] Allergy Unknown RASH Verified 05/19/21 07:39 Assessment & Plan Assessment & Plan (1) Schizophrenia: Status: Acute Code(s): F20.9 - Schizophrenia, unspecified Plan 03/25: start haldol 5 and benadryl 50 BID. had been on zyprexa, which was apparently too sedating. 03/26: denies any effects or side effects. continue current mgmt. 03/27: Continue current regimen and plans 03/28: Continue current regimen and plans. Make is Benadryl p.r.n. and add Cogentin 1 mg b.i.d. and discontinue Vistaril p.r.n. 03/29: commitment paperwork filed. continue current mgmt for now. T/C increasing haldol dosing and moving toward [facility] prior to discharge. Reason for continued inpatient stay Substantial Risk for: harm to others, inability to function and rapid decompensation Time Spent With Patient Time: Total time managing care of this patient today __35__ minutes.
[2023-03-29 19:50] VITALS: BP 130/60; PULSE 96; RESP 16; TEMP 36.1; O2SAT 96
[2023-03-29] MEDS: diphenhydrAMINE HCL 25 MG CAPSULE 50 MG PO (21:11)
[2023-03-30] MEDS: HaloperidoL 5 MG TABLET PO ×2 (08:30→20:57)
[2023-03-30] MEDS: Benztropine Mesylate 1 MG TABLET PO ×2 (08:30→20:57)
[2023-03-30 08:53] VITALS: BP 113/62; PULSE 92; RESP 18; TEMP 36.6; O2SAT 99
[2023-03-30 09:01] VITALS: BP 113/62; PULSE 92; TEMP 36.6; O2SAT 99
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
[2023-03-30] MEDS: clonazePAM 0.5 MG TABLET PO ×2 (16:31→20:57)
[2023-03-30 19:40] VITALS: BP 125/74; PULSE 109; RESP 16; TEMP 36.3; O2SAT 96
[2023-03-30] MEDS: diphenhydrAMINE HCL 25 MG CAPSULE 50 MG PO (20:57)
[2023-03-31 06:00] VITALS: BP 114/65; PULSE 101; TEMP 36.7; O2SAT 96
[2023-03-31] MEDS: Benztropine Mesylate 1 MG TABLET PO ×2 (09:19→21:28)
[2023-03-31] MEDS: HaloperidoL 5 MG TABLET PO ×2 (09:19→21:28)
[2023-03-31] MEDS: clonazePAM 0.5 MG TABLET PO ×2 (09:19→21:28)
[2023-03-31 20:15] VITALS: BP 128/67; PULSE 110; RESP 18; TEMP 36.7; O2SAT 97
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
[2023-03-31] MEDS: diphenhydrAMINE HCL 25 MG CAPSULE 50 MG PO (21:29)
[2023-04-01 07:00] VITALS: BMI 40.7
[2023-04-01 07:51] VITALS: BP 116/61; PULSE 87; RESP 16; TEMP 36.6; O2SAT 97
[2023-04-01] MEDS: Benztropine Mesylate 1 MG TABLET PO ×2 (08:44→21:31)
[2023-04-01] MEDS: HaloperidoL 5 MG TABLET PO ×2 (08:44→21:31)
[2023-04-01] MEDS: clonazePAM 0.5 MG TABLET PO ×2 (08:45→21:31)
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
[2023-04-01] MEDS: diphenhydrAMINE HCL 25 MG CAPSULE 50 MG PO (21:31)
[2023-04-02 06:00] VITALS: BP 112/64; PULSE 94; TEMP 36.5; O2SAT 95
[2023-04-02] MEDS: Benztropine Mesylate 1 MG TABLET PO ×2 (08:53→20:58)
[2023-04-02] MEDS: HaloperidoL 5 MG TABLET PO (08:53)
[2023-04-02] MEDS: clonazePAM 0.5 MG TABLET PO ×2 (08:53→20:57)
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
[2023-04-02] MEDS: diphenhydrAMINE HCL 25 MG CAPSULE 50 MG PO (19:53)
[2023-04-02 20:25] VITALS: BP 125/58; PULSE 95; RESP 17; TEMP 36.2; O2SAT 96
[2023-04-02] MEDS: HaloperidoL 5 MG TABLET 7.5 MG PO (20:57)
[2023-04-03 06:00] VITALS: BP 120/70; PULSE 86; RESP 16; TEMP 36.2; O2SAT 94
[2023-04-03] MEDS: HaloperidoL 5 MG TABLET 7.5 MG PO ×2 (09:18→21:10)
[2023-04-03] MEDS: clonazePAM 0.5 MG TABLET PO ×2 (09:19→21:10)
[2023-04-03] MEDS: Benztropine Mesylate 1 MG TABLET PO ×2 (09:19→21:12)
--- NOTE | 2023-04-03 13:23 | P.PNPSI_ITS ---
Subjective Subjective Date of Service: 04/03/23 Reason For Visit: Schizophrenia Subjective Notes: Conditional Voluntary Interim History: The nursing staff reported the patient had been compliant with treatment, he denies psychotic symptoms and he denies side effects. On interview the patient denies new symptoms, denies psychosis but staff has noticed that he has been responding to internal stimuli. Mental Status Exam Mental Status Exam Patient Appearance: Appropriate Patient Orientation: Person, Place and Situation Level of Consciousness: Awake and Appropriate Patient Behavior: Guarded and Passive Mood Description: Calm Affect Description: Withdrawn and Constricted Patient Cognition Impaired: No Ability to Follow Directions: Good Speech Pattern: Clear Hallucinations: Auditory Delusions: Paranoid Ideation Thought Process: Linear Thought Content: positive for Dumont and positive for Poverty of Content Judgement: Fair Diagnostics Vital Signs (24Hr): Vital Signs - 24 hr 04/02/23 20:25 Temperature 97.2 F Pulse Rate 95 Respiratory Rate 17 Blood Pressure 125/58 L Pulse Oximetry 96 Oxygen Delivery Method Room Air BMI result Body Mass Index 40.7 Labs 03/24/23 13:12 03/25/23 08:29 Medications Medications Current Medications Acetaminophen (Acetaminophen 325 Mg Tablet) 650 mg PO Q6H PRN PRN Reason: Headache/Pain Mild Scale (1-3) Al Hydroxide/Mg Hydroxide (Magnesium Hydrox/Alum Hydrox 30 Ml Oral.Susp) 30 ml PO Q6H PRN PRN Reason: Heartburn/Nausea Benztropine Mesylate (Benztropine Mesylate 1 Mg Tablet) 1 mg PO BID [facility] Last Admin: 04/03/23 09:19 Dose: 1 mg Clonazepam (Clonazepam 0.5 Mg Tablet) 0.5 mg PO BID [facility] Last Admin: 04/03/23 09:19 Dose: 0.5 mg Diphenhydramine HCl (Diphenhydramine Hcl 25 Mg Capsule) 50 mg PO BID PRN PRN Reason: Anxiety Last Admin: 04/02/23 19:53 Dose: 50 mg Haloperidol (Haloperidol 5 Mg Tablet) 5 mg PO Q6H PRN PRN Reason: psychosis Haloperidol (Haloperidol 5 Mg Tablet) 7.5 mg PO BID [facility] Last Admin: 04/03/23 09:18 Dose: 7.5 mg Magnesium Hydroxide (Milk Of Magnesia 30 Ml Oral.Susp) 30 ml PO DAILY PRN PRN Reason: Constipation Trazodone HCl (Trazodone Hcl 50 Mg Tablet) 50 mg PO BEDTIME MRX1 PRN PRN Reason: Insomnia Allergies Allergies Allergy/AdvReac Type Severity Reaction Status Date / Time Penicillins [PENICILLINS] Allergy Unknown RASH Verified 05/19/21 07:39 Assessment & Plan Assessment & Plan (1) Schizophrenia: Status: Acute Code(s): F20.9 - Schizophrenia, unspecified Plan 03/25: start haldol 5 and benadryl 50 BID. had been on zyprexa, which was apparently too sedating. 03/26: denies any effects or side effects. continue current mgmt. 03/27: Continue current regimen and plans 03/28: Continue current regimen and plans. Make is Benadryl p.r.n. and add Cogentin 1 mg b.i.d. and discontinue Vistaril p.r.n. 03/29: commitment paperwork filed. continue current mgmt for now. T/C increasing haldol dosing and moving toward WONG prior to discharge. 03/30 added clonazepam for anxiety s/s to paranoid delusions. 03/31 continue tx. 04/01 pt agreed to sign CV and continued treatment. 04/02: paranoid delusions continue as well as apparent minimization of AH. increase haldol from 5 BID to 7.5 BID. 04/13 continue same treatment Reason for continued inpatient stay Substantial Risk for: inability to function, rapid decompensation and med/psych decompensation Time Spent With Patient Time: Total time managing care of this patient today __20__ minutes.
[2023-04-03 20:00] VITALS: BP 122/67; PULSE 90; RESP 18; TEMP 36.7; O2SAT 97
[2023-04-03] MEDS: diphenhydrAMINE HCL 25 MG CAPSULE 50 MG PO (21:12)
[2023-04-04 06:00] VITALS: BP 123/68; PULSE 110; TEMP 36.1; O2SAT 97
[2023-04-04] MEDS: clonazePAM 0.5 MG TABLET PO (09:02)
[2023-04-04] MEDS: HaloperidoL 5 MG TABLET 7.5 MG PO ×2 (09:02→20:26)
[2023-04-04] MEDS: Benztropine Mesylate 1 MG TABLET PO ×2 (09:02→20:26)
--- NOTE | 2023-04-04 13:49 | P.PNPSI_ITS ---
Subjective Subjective Date of Service: 04/04/23 Reason For Visit: Schizophrenia Subjective Notes: Conditional Voluntary Interim History: The nursing staff reported the patient slept well. Compliant with treatment, sporadic auditory hallucinations but no behaviors. On interview the patient denies new symptoms, compliant with treatment no new symptoms. Mental Status Exam Mental Status Exam Patient Appearance: Well Grooomed and Appropriate Patient Orientation: Person and Situation Level of Consciousness: Awake and Appropriate Patient Behavior: Guarded and Passive Mood Description: Calm Affect Description: Constricted Patient Cognition Impaired: Yes Ability to Follow Directions: Good Speech Pattern: Clear Hallucinations: None Delusions: Not Present Thought Process: Linear Thought Content: positive for Circumstantial Judgement: Fair Diagnostics Vital Signs (24Hr): Vital Signs - 24 hr 04/03/23 20:00 04/04/23 06:00 Temperature 98.1 F 96.9 F Pulse Rate 90 110 H Respiratory Rate 18 Blood Pressure 122/67 123/68 Pulse Oximetry 97 97 Oxygen Delivery Method Room Air Room Air BMI result Body Mass Index 40.7 Labs 03/24/23 13:12 03/25/23 08:29 Medications Medications Current Medications Acetaminophen (Acetaminophen 325 Mg Tablet) 650 mg PO Q6H PRN PRN Reason: Headache/Pain Mild Scale (1-3) Al Hydroxide/Mg Hydroxide (Magnesium Hydrox/Alum Hydrox 30 Ml Oral.Susp) 30 ml PO Q6H PRN PRN Reason: Heartburn/Nausea Benztropine Mesylate (Benztropine Mesylate 1 Mg Tablet) 1 mg PO BID [facility] Last Admin: 04/04/23 09:02 Dose: 1 mg Clonazepam (Clonazepam 0.5 Mg Tablet) 0.5 mg PO BID [facility] Last Admin: 04/04/23 09:02 Dose: 0.5 mg Diphenhydramine HCl (Diphenhydramine Hcl 25 Mg Capsule) 50 mg PO BID PRN PRN Reason: Anxiety Last Admin: 04/03/23 21:12 Dose: 50 mg Haloperidol (Haloperidol 5 Mg Tablet) 5 mg PO Q6H PRN PRN Reason: psychosis Haloperidol (Haloperidol 5 Mg Tablet) 7.5 mg PO BID [facility] Last Admin: 04/04/23 09:02 Dose: 7.5 mg Magnesium Hydroxide (Milk Of Magnesia 30 Ml Oral.Susp) 30 ml PO DAILY PRN PRN Reason: Constipation Trazodone HCl (Trazodone Hcl 50 Mg Tablet) 50 mg PO BEDTIME MRX1 PRN PRN Reason: Insomnia Allergies Allergies Allergy/AdvReac Type Severity Reaction Status Date / Time Penicillins [PENICILLINS] Allergy Unknown RASH Verified 05/19/21 07:39 Assessment & Plan Assessment & Plan (1) Schizophrenia: Status: Acute Code(s): F20.9 - Schizophrenia, unspecified Plan 03/25: start haldol 5 and benadryl 50 BID. had been on zyprexa, which was apparently too sedating. 03/26: denies any effects or side effects. continue current mgmt. 03/27: Continue current regimen and plans 03/28: Continue current regimen and plans. Make is Benadryl p.r.n. and add Cogentin 1 mg b.i.d. and discontinue Vistaril p.r.n. 03/29: commitment paperwork filed. continue current mgmt for now. T/C increasing haldol dosing and moving toward WONG prior to discharge. 03/30 added clonazepam for anxiety s/s to paranoid delusions. 03/31 continue tx. 04/01 pt agreed to sign CV and continued treatment. 04/02: paranoid delusions continue as well as apparent minimization of AH. increase haldol from 5 BID to 7.5 BID. 04/13 continue same treatment 04/04 continue same treatment Reason for continued inpatient stay Substantial Risk for: inability to function, rapid decompensation and med/psych decompensation Time Spent With Patient Time: Total time managing care of this patient today __20__ minutes.
[2023-04-04] MEDS: HaloperidoL 5 MG TABLET PO (14:24)
[2023-04-04] MEDS: diphenhydrAMINE HCL 25 MG CAPSULE 50 MG PO ×2 (14:24→20:26)
[2023-04-04 20:10] VITALS: BP 113/58; PULSE 114; RESP 18; TEMP 36.2; O2SAT 97
[2023-04-04] MEDS: traZODone HCL 50 MG TABLET PO (23:07)
[2023-04-05 08:13] VITALS: BP 128/56; PULSE 81; RESP 16; TEMP 36.3; O2SAT 95
[2023-04-05] MEDS: HaloperidoL 5 MG TABLET 7.5 MG PO ×2 (08:39→22:34)
[2023-04-05] MEDS: Benztropine Mesylate 1 MG TABLET PO ×2 (08:39→22:33)
[2023-04-05] MEDS: diphenhydrAMINE HCL 25 MG CAPSULE PO ×2 (12:42→22:33)
--- NOTE | 2023-04-05 14:30 | HO.PSYCHPN ---
Subjective Subjective Date of Service: 04/05/23 Reason For Visit: Schizophrenia Interim History: calm, cooperative. up and about the unit today, more engaging. c/o feeling restless, unclear if akathisia. denies problems sleeping or issues at HS. agrees to add benadryl 25 BID. per staff, not attending groups. declining check-ins. taking meds and meals.asking for anxiety meds. PRN benadryl and haldol given. slept in group room. +AH. slept well overnight. Mental Status Exam Mental Status Exam Narrative: Pt is alert and oriented; behavior is cooperative and calm; dressed in casual attire; eye contact appropriate; Speech is nml amount, loudness, rate, and prosody and not pressured; no psychomotor agitation/retardation present; thought process is organized and goal directed; Thought content is on tx; otherwise pertinent to relevant topics, with no delusions or paranoia evident; no SI/HI/AVH expressed. Patients insight and judgment are impaired. Diagnostics Vital Signs (24Hr): Vital Signs - 24 hr 04/04/23 20:10 04/05/23 08:13 Temperature 97.2 F 97.3 F Pulse Rate 114 H 81 Respiratory Rate 18 16 Blood Pressure 113/58 L 128/56 L Pulse Oximetry 97 95 Oxygen Delivery Method Room Air Room Air BMI result Body Mass Index 40.7 Labs 03/24/23 13:12 03/25/23 08:29 Medications Medications Current Medications Acetaminophen (Acetaminophen 325 Mg Tablet) 650 mg PO Q6H PRN PRN Reason: Headache/Pain Mild Scale (1-3) Al Hydroxide/Mg Hydroxide (Magnesium Hydrox/Alum Hydrox 30 Ml Oral.Susp) 30 ml PO Q6H PRN PRN Reason: Heartburn/Nausea Benztropine Mesylate (Benztropine Mesylate 1 Mg Tablet) 1 mg PO BID [facility] Last Admin: 04/05/23 08:39 Dose: 1 mg Diphenhydramine HCl (Diphenhydramine Hcl 25 Mg Capsule) 50 mg PO BID PRN PRN Reason: Anxiety Last Admin: 04/04/23 20:26 Dose: 50 mg Diphenhydramine HCl (Diphenhydramine Hcl 25 Mg Capsule) 25 mg PO BID [facility] Last Admin: 04/05/23 12:42 Dose: 25 mg Haloperidol (Haloperidol 5 Mg Tablet) 5 mg PO Q6H PRN PRN Reason: psychosis Last Admin: 04/04/23 14:24 Dose: 5 mg Haloperidol (Haloperidol 5 Mg Tablet) 7.5 mg PO BID [facility] Last Admin: 04/05/23 08:39 Dose: 7.5 mg Magnesium Hydroxide (Milk Of Magnesia 30 Ml Oral.Susp) 30 ml PO DAILY PRN PRN Reason: Constipation Trazodone HCl (Trazodone Hcl 50 Mg Tablet) 50 mg PO BEDTIME MRX1 PRN PRN Reason: Insomnia Last Admin: 04/04/23 23:07 Dose: 50 mg Allergies Allergies Allergy/AdvReac Type Severity Reaction Status Date / Time Penicillins [PENICILLINS] Allergy Unknown RASH Verified 05/19/21 07:39 Assessment & Plan Assessment & Plan (1) Schizophrenia: Status: Acute Code(s): F20.9 - Schizophrenia, unspecified Plan 03/25: start haldol 5 and benadryl 50 BID. had been on zyprexa, which was apparently too sedating. 03/26: denies any effects or side effects. continue current mgmt. 03/27: Continue current regimen and plans 03/28: Continue current regimen and plans. Make is Benadryl p.r.n. and add Cogentin 1 mg b.i.d. and discontinue Vistaril p.r.n. 03/29: commitment paperwork filed. continue current mgmt for now. T/C increasing haldol dosing and moving toward WONG prior to discharge. 03/30 added clonazepam for anxiety s/s to paranoid delusions. 03/31 continue tx. 04/01 pt agreed to sign CV and continued treatment. 04/02: paranoid delusions continue as well as apparent minimization of AH. increase haldol from 5 BID to 7.5 BID. 04/13 continue same treatment 04/04 continue same treatment 04/05: pt has endorsed AH to staff. c/o restlessness. out of concern for akathisia, benadryl 25 BID added to the cogentin 1 BID pt is already on. sleeping well, though. more active and engaging than last week. per collateral from outpt providers who visited today, not at his baseline. Reason for continued inpatient stay Substantial Risk for: harm to others, inability to function and rapid decompensation Time Spent With Patient Time: Total time managing care of this patient today __35__ minutes.
[2023-04-05 19:08] VITALS: BP 120/65; PULSE 115; RESP 16; TEMP 36.1; O2SAT 96
[2023-04-05] MEDS: traZODone HCL 50 MG TABLET PO (22:34)
[2023-04-06 06:00] VITALS: BP 110/64; PULSE 92; TEMP 36.6; O2SAT 95
[2023-04-06] MEDS: Benztropine Mesylate 1 MG TABLET PO ×2 (09:03→21:03)
[2023-04-06] MEDS: diphenhydrAMINE HCL 25 MG CAPSULE PO ×2 (09:03→21:03)
[2023-04-06] MEDS: HaloperidoL 5 MG TABLET 7.5 MG PO ×2 (09:04→21:03)
--- NOTE | 2023-04-06 09:28 | P.PNPSI_ITS ---
Subjective Subjective Date of Service: 04/06/23 Reason For Visit: Schizophrenia Subjective Notes: Conditional Voluntary Interim History: Pt mostly in bed. He continues to report hearing voices, he states maybe less scary content of voices but he states they talk about everything, sometimes the whether. He appears less paranoid, less worried about talking about voices and what he knows as he is less fearful that others can hear him. He denies SI/HI. Although he reports having a lot of energy he has been since admission in his room in bed every day. I do not suspect he has akathisia- no tapping feet, no sense of restlessness, nor poor sleep. He does report when encouraged to get up and go to some groups, that being around other people cause some degree of anxiety as he does not feel completely safe. On exam- no cogwheel, nor rigidity noted. 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 Review of Systems Review of Systems As per HPI. Yes all other systems are reviewed and are negative and Unobtainable due to mental status Constitutional: Reports as per HPI Mental Status Exam Mental Status Exam Narrative: Pt is alert and oriented; behavior is cooperative and calm; dressed in casual attire; mood is described as OK ; eye contact appropriate; Speech is decr amount, nml rate, volume and prosody and not pressured; no psychomotor agitation/retardation present; thought process is organized and goal directed; Thought content i; otherwise pertinent to relevant topics and without any delusional content, paranoid ideations or grandiosity; no SI/HI. He reports AH of many voices talking all the time and at times he does not know what they are saying. Patients insight and judgment are impaired. Diagnostics Vital Signs (24Hr): Vital Signs - 24 hr 04/05/23 19:08 04/06/23 06:00 Temperature 97.0 F 97.8 F Pulse Rate 115 H 92 Respiratory Rate 16 Blood Pressure 120/65 110/64 Pulse Oximetry 96 95 Oxygen Delivery Method Room Air Room Air BMI result Body Mass Index 40.7 Labs 03/24/23 13:12 03/25/23 08:29 Medications Medications Current Medications Acetaminophen (Acetaminophen 325 Mg Tablet) 650 mg PO Q6H PRN PRN Reason: Headache/Pain Mild Scale (1-3) Al Hydroxide/Mg Hydroxide (Magnesium Hydrox/Alum Hydrox 30 Ml Oral.Susp) 30 ml PO Q6H PRN PRN Reason: Heartburn/Nausea Benztropine Mesylate (Benztropine Mesylate 1 Mg Tablet) 1 mg PO BID [facility] Last Admin: 04/06/23 09:03 Dose: 1 mg Diphenhydramine HCl (Diphenhydramine Hcl 25 Mg Capsule) 50 mg PO BID PRN PRN Reason: Anxiety Last Admin: 04/04/23 20:26 Dose: 50 mg Diphenhydramine HCl (Diphenhydramine Hcl 25 Mg Capsule) 25 mg PO BID [facility] Last Admin: 04/06/23 09:03 Dose: 25 mg Haloperidol (Haloperidol 5 Mg Tablet) 5 mg PO Q6H PRN PRN Reason: psychosis Last Admin: 04/04/23 14:24 Dose: 5 mg Haloperidol (Haloperidol 5 Mg Tablet) 7.5 mg PO BID [facility] Last Admin: 04/06/23 09:04 Dose: 7.5 mg Magnesium Hydroxide (Milk Of Magnesia 30 Ml Oral.Susp) 30 ml PO DAILY PRN PRN Reason: Constipation Trazodone HCl (Trazodone Hcl 50 Mg Tablet) 50 mg PO BEDTIME MRX1 PRN PRN Reason: Insomnia Last Admin: 04/05/23 22:34 Dose: 50 mg Allergies Allergies Allergy/AdvReac Type Severity Reaction Status Date / Time Penicillins [PENICILLINS] Allergy Unknown RASH Verified 05/19/21 07:39 Assessment & Plan Assessment & Plan (1) Schizophrenia: Status: Acute Code(s): F20.9 - Schizophrenia, unspecified Plan 03/25: start haldol 5 and benadryl 50 BID. had been on zyprexa, which was apparently too sedating. 03/26: denies any effects or side effects. continue current mgmt. 03/27: Continue current regimen and plans 03/28: Continue current regimen and plans. Make is Benadryl p.r.n. and add Cogentin 1 mg b.i.d. and discontinue Vistaril p.r.n. 03/29: commitment paperwork filed. continue current mgmt for now. T/C increasing haldol dosing and moving toward WONG prior to discharge. 03/30 added clonazepam for anxiety s/s to paranoid delusions. 03/31 continue tx. 04/01 pt agreed to sign CV and continued treatment. 04/02: paranoid delusions continue as well as apparent minimization of AH. increase haldol from 5 BID to 7.5 BID. 04/13 continue same treatment 04/04 continue same treatment 04/05: pt has endorsed AH to staff. c/o restlessness. out of concern for akathisia, benadryl 25 BID added to the cogentin 1 BID pt is already on. sleeping well, though. more active and engaging than last week. per collateral from outpt providers who visited today, not at his baseline. 04/06 Pt continues to report AH- he reports minimal change in frequency but it appears content of voices less paranoid or threatening content. He does appear less paranoia. I do not see evidence of akathisia- no tapping of feet, or need to pace. He has been mostly in bed. He continues to report some anxiety around others. No SI/HI. No aggression towards self or others. d/c benadryl as too sedating during the day Reason for continued inpatient stay Substantial Risk for: inability to function Time Spent With Patient Time: Total time managing care of this patient today ____ minutes.
[2023-04-06 21:06] VITALS: BP 126/60; PULSE 95; RESP 16; TEMP 36.3; O2SAT 96
[2023-04-07 07:30] VITALS: BP 114/57; PULSE 83; RESP 18; TEMP 36.2; O2SAT 98
[2023-04-07] MEDS: HaloperidoL 5 MG TABLET 7.5 MG PO ×2 (07:51→21:00)
[2023-04-07] MEDS: Benztropine Mesylate 1 MG TABLET PO ×2 (07:51→21:00)
[2023-04-07] MEDS: diphenhydrAMINE HCL 25 MG CAPSULE 50 MG PO ×2 (08:01→23:16)
[2023-04-07] MEDS: Lithium Carbonate ER 300 MG TABLET.ER 600 MG PO ×2 (12:11→21:00)
[2023-04-07] MEDS: HaloperidoL 5 MG TABLET PO (12:19)
--- NOTE | 2023-04-07 14:16 | HO.PSYCHPN ---
Subjective Subjective Date of Service: 04/07/23 Reason For Visit: Schizophrenia Interim History: calm, cooperative. reports feeling like he is connected to an animal that is constantly feeding him energy, making his thoughts race. it feels very uncomfortable. has been there much of his life. predates haldol, certainly. the only thing that makes the experience go away is smoking cannabis, which gives him a couple hours of relief and allows him to sleep. agreeable to add lithium. per staff, saying he wants to be euthanized. Mental Status Exam Mental Status Exam Narrative: Pt is alert and oriented; behavior is cooperative and calm; dressed in casual attire; eye contact appropriate; Speech is nml amount, loudness, rate, and prosody and not pressured; no psychomotor agitation/retardation present; thought process is organized and goal directed; Thought content is on tx; otherwise pertinent to relevant topics, with no delusions or paranoia evident; no SI/HI/VH expressed. c/o racing thoughts and AH. Patients insight and judgment are impaired. Diagnostics Vital Signs (24Hr): Vital Signs - 24 hr 04/06/23 21:06 04/07/23 07:30 Temperature 97.3 F 97.2 F Pulse Rate 95 83 Respiratory Rate 16 18 Blood Pressure 126/60 114/57 L Pulse Oximetry 96 98 Oxygen Delivery Method Room Air Room Air BMI result Body Mass Index 40.7 Labs 03/24/23 13:12 03/25/23 08:29 Medications Medications Current Medications Acetaminophen (Acetaminophen 325 Mg Tablet) 650 mg PO Q6H PRN PRN Reason: Headache/Pain Mild Scale (1-3) Al Hydroxide/Mg Hydroxide (Magnesium Hydrox/Alum Hydrox 30 Ml Oral.Susp) 30 ml PO Q6H PRN PRN Reason: Heartburn/Nausea Benztropine Mesylate (Benztropine Mesylate 1 Mg Tablet) 1 mg PO BID [facility] Last Admin: 04/07/23 07:51 Dose: 1 mg Diphenhydramine HCl (Diphenhydramine Hcl 25 Mg Capsule) 50 mg PO BID PRN PRN Reason: Anxiety Last Admin: 04/07/23 08:01 Dose: 50 mg Haloperidol (Haloperidol 5 Mg Tablet) 5 mg PO Q6H PRN PRN Reason: psychosis Last Admin: 04/07/23 12:19 Dose: 5 mg Haloperidol (Haloperidol 5 Mg Tablet) 7.5 mg PO BID [facility] Last Admin: 04/07/23 07:51 Dose: 7.5 mg Naylor Carbonate (Naylor Carbonate Er 300 Mg Tablet.Er) 600 mg PO BID [facility] Last Admin: 04/07/23 12:11 Dose: 600 mg Magnesium Hydroxide (Milk Of Magnesia 30 Ml Oral.Susp) 30 ml PO DAILY PRN PRN Reason: Constipation Trazodone HCl (Trazodone Hcl 50 Mg Tablet) 50 mg PO BEDTIME MRX1 PRN PRN Reason: Insomnia Last Admin: 04/05/23 22:34 Dose: 50 mg Allergies Allergies Allergy/AdvReac Type Severity Reaction Status Date / Time Penicillins [PENICILLINS] Allergy Unknown RASH Verified 05/19/21 07:39 Assessment & Plan Assessment & Plan (1) Schizophrenia: Status: Acute Code(s): F20.9 - Schizophrenia, unspecified Plan 03/25: start haldol 5 and benadryl 50 BID. had been on zyprexa, which was apparently too sedating. 03/26: denies any effects or side effects. continue current mgmt. 03/27: Continue current regimen and plans 03/28: Continue current regimen and plans. Make is Benadryl p.r.n. and add Cogentin 1 mg b.i.d. and discontinue Vistaril p.r.n. 03/29: commitment paperwork filed. continue current mgmt for now. T/C increasing haldol dosing and moving toward WONG prior to discharge. 03/30 added clonazepam for anxiety s/s to paranoid delusions. 03/31 continue tx. 04/01 pt agreed to sign CV and continued treatment. 04/02: paranoid delusions continue as well as apparent minimization of AH. increase haldol from 5 BID to 7.5 BID. 04/13 continue same treatment 04/04 continue same treatment 04/05: pt has endorsed AH to staff. c/o restlessness. out of concern for akathisia, benadryl 25 BID added to the cogentin 1 BID pt is already on. sleeping well, though. more active and engaging than last week. per collateral from outpt providers who visited today, not at his baseline. 04/06: Pt continues to report AH- he reports minimal change in frequency but it appears content of voices less paranoid or threatening content. He does appear less paranoia. I do not see evidence of akathisia- no tapping of feet, or need to pace. He has been mostly in bed. He continues to report some anxiety around others. No SI/HI. No aggression towards self or others. d/c benadryl as too sedating during the day. 04/07: in light of pt's expression of feeling constantly over-energized with racing thoughts and AH, will initiate trial of lithium in the event of atypical bipolar diathesis presentation. continue haldol and cogentin for now. pt reports this uncomfortable sensation predates haldol use. if lithium provides no relief, will increase haldol further. Reason for continued inpatient stay Substantial Risk for: harm to others, inability to function and rapid decompensation Time Spent With Patient Time: Total time managing care of this patient today __35__ minutes.
[2023-04-07 20:34] VITALS: BP 132/81; PULSE 88; TEMP 36.1; O2SAT 96
[2023-04-08] MEDS: HaloperidoL 5 MG TABLET 7.5 MG PO ×2 (09:20→20:17)
[2023-04-08] MEDS: Lithium Carbonate ER 300 MG TABLET.ER 600 MG PO ×2 (09:20→20:15)
[2023-04-08] MEDS: Benztropine Mesylate 1 MG TABLET PO ×2 (09:21→20:18)
[2023-04-08 09:29] VITALS: BP 112/70; PULSE 94; RESP 20; TEMP 36.6; O2SAT 97
[2023-04-08] MEDS: HaloperidoL 5 MG TABLET PO (09:46)
[2023-04-08] MEDS: diphenhydrAMINE HCL 25 MG CAPSULE 50 MG PO (09:46)
--- NOTE | 2023-04-08 14:11 | HO.PSYCHPN ---
Subjective Subjective Date of Service: 04/08/23 Reason For Visit: Schizophrenia Interim History: calm, cooperative. reports no change in how he has been feeling over the past 24H. heightened energy and tension, although he spends all day in bed. reporting feling same as when he has asked staff to get the police to shoot him. agreeable to continue to give lithium a try for the next several days. per staff, anxious. no SI/HI. slept well. Mental Status Exam Mental Status Exam Narrative: Pt is alert and oriented; behavior is cooperative and calm; dressed in casual attire; eye contact appropriate; Speech is nml amount, loudness, rate, and prosody and not pressured; no psychomotor agitation/retardation present; thought process is organized and goal directed; Thought content is on psychic distress, with no delusions or paranoia evident; no HI/VH expressed, +SI. c/o racing thoughts and AH. Patients insight and judgment are impaired. Diagnostics Vital Signs (24Hr): Vital Signs - 24 hr 04/07/23 20:34 04/08/23 09:29 Temperature 97.0 F 97.8 F Pulse Rate 88 94 Respiratory Rate 20 Blood Pressure 132/81 112/70 Pulse Oximetry 96 97 Oxygen Delivery Method Room Air Room Air BMI result Body Mass Index 40.7 Labs 03/24/23 13:12 03/25/23 08:29 Medications Medications Current Medications Acetaminophen (Acetaminophen 325 Mg Tablet) 650 mg PO Q6H PRN PRN Reason: Headache/Pain Mild Scale (1-3) Al Hydroxide/Mg Hydroxide (Magnesium Hydrox/Alum Hydrox 30 Ml Oral.Susp) 30 ml PO Q6H PRN PRN Reason: Heartburn/Nausea Benztropine Mesylate (Benztropine Mesylate 1 Mg Tablet) 1 mg PO BID [facility] Last Admin: 04/08/23 09:21 Dose: 1 mg Diphenhydramine HCl (Diphenhydramine Hcl 25 Mg Capsule) 50 mg PO BID PRN PRN Reason: Anxiety Last Admin: 04/08/23 09:46 Dose: 50 mg Haloperidol (Haloperidol 5 Mg Tablet) 5 mg PO Q6H PRN PRN Reason: psychosis Last Admin: 04/08/23 09:46 Dose: 5 mg Haloperidol (Haloperidol 5 Mg Tablet) 7.5 mg PO BID [facility] Last Admin: 04/08/23 09:20 Dose: 7.5 mg [place] Carbonate ([place] Carbonate Er 300 Mg Tablet.Er) 600 mg PO BID [facility] Last Admin: 04/08/23 09:20 Dose: 600 mg Magnesium Hydroxide (Milk Of Magnesia 30 Ml Oral.Susp) 30 ml PO DAILY PRN PRN Reason: Constipation Trazodone HCl (Trazodone Hcl 50 Mg Tablet) 50 mg PO BEDTIME MRX1 PRN PRN Reason: Insomnia Last Admin: 04/05/23 22:34 Dose: 50 mg Allergies Allergies Allergy/AdvReac Type Severity Reaction Status Date / Time Penicillins [PENICILLINS] Allergy Unknown RASH Verified 05/19/21 07:39 Assessment & Plan Assessment & Plan (1) Schizophrenia: Status: Acute Code(s): F20.9 - Schizophrenia, unspecified Plan 03/25: start haldol 5 and benadryl 50 BID. had been on zyprexa, which was apparently too sedating. 03/26: denies any effects or side effects. continue current mgmt. 03/27: Continue current regimen and plans 03/28: Continue current regimen and plans. Make is Benadryl p.r.n. and add Cogentin 1 mg b.i.d. and discontinue Vistaril p.r.n. 03/29: commitment paperwork filed. continue current mgmt for now. T/C increasing haldol dosing and moving toward WONG prior to discharge. 03/30 added clonazepam for anxiety s/s to paranoid delusions. 03/31 continue tx. 04/01 pt agreed to sign CV and continued treatment. 04/02: paranoid delusions continue as well as apparent minimization of AH. increase haldol from 5 BID to 7.5 BID. 04/13 continue same treatment 04/04 continue same treatment 04/05: pt has endorsed AH to staff. c/o restlessness. out of concern for akathisia, benadryl 25 BID added to the cogentin 1 BID pt is already on. sleeping well, though. more active and engaging than last week. per collateral from outpt providers who visited today, not at his baseline. 04/06: Pt continues to report AH- he reports minimal change in frequency but it appears content of voices less paranoid or threatening content. He does appear less paranoia. I do not see evidence of akathisia- no tapping of feet, or need to pace. He has been mostly in bed. He continues to report some anxiety around others. No SI/HI. No aggression towards self or others. d/c benadryl as too sedating during the day. 04/07: in light of pt's expression of feeling constantly over-energized with racing thoughts and AH, will initiate trial of lithium in the event of atypical bipolar diathesis presentation. continue haldol and cogentin for now. pt reports this uncomfortable sensation predates haldol use. if lithium provides no relief, will increase haldol further. 04/08: no change from yesterday. continue lithium trial for several days. +SI, racing thoughts, AH. Reason for continued inpatient stay Substantial Risk for: harm to self, inability to function and rapid decompensation Time Spent With Patient Time: Total time managing care of this patient today __25__ minutes.
[2023-04-08 14:30] VITALS: BMI 41.0
[2023-04-08 20:06] VITALS: BP 127/75; PULSE 120; TEMP 36.2; O2SAT 96
[2023-04-08] MEDS: traZODone HCL 50 MG TABLET PO (21:14)
[2023-04-09 06:00] VITALS: BP 121/60; PULSE 89; RESP 18; TEMP 36.2; O2SAT 96
[2023-04-09] MEDS: Lithium Carbonate ER 300 MG TABLET.ER 600 MG PO ×2 (08:21→21:30)
[2023-04-09] MEDS: HaloperidoL 5 MG TABLET 7.5 MG PO ×2 (08:21→21:30)
[2023-04-09] MEDS: Benztropine Mesylate 1 MG TABLET PO ×2 (08:21→21:30)
--- NOTE | 2023-04-09 09:03 | P.PNPSI_ITS ---
Subjective Subjective Date of Service: 04/09/23 Reason For Visit: Schizophrenia Interim History: pt lying in bed; says he feels a little better today and his mind is a little less racing but only because he's been sleeping and staying by himself. Otherwise he does not think medication does much. discussed options and pt ambivalent about med change; he agreed to defer to Dr. Hernandez return (and [employer] not yet steady state) Mental Status Exam Mental Status Exam Narrative: Pt is alert and oriented; behavior is cooperative and calm; lying in beds, shirtless; eye contact limited; Speech is nml amount, loudness, rate, and prosody and not pressured; psychomotor retardation present; thought process is goal directed; Thought content is on psychic distress, with no delusions or paranoia evident; no HI/VH/SI expressed, +SI. c/o racing thoughts and AH. Patients insight and judgment are impaired. Diagnostics Vital Signs (24Hr): Vital Signs - 24 hr 04/08/23 09:29 04/08/23 20:06 Temperature 97.8 F 97.1 F Pulse Rate 94 120 H Respiratory Rate 20 Blood Pressure 112/70 127/75 Pulse Oximetry 97 96 Oxygen Delivery Method Room Air Room Air BMI result Body Mass Index 41.0 Labs 03/24/23 13:12 03/25/23 08:29 Medications Medications Current Medications Acetaminophen (Acetaminophen 325 Mg Tablet) 650 mg PO Q6H PRN PRN Reason: Headache/Pain Mild Scale (1-3) Al Hydroxide/Mg Hydroxide (Magnesium Hydrox/Alum Hydrox 30 Ml Oral.Susp) 30 ml PO Q6H PRN PRN Reason: Heartburn/Nausea Benztropine Mesylate (Benztropine Mesylate 1 Mg Tablet) 1 mg PO BID [facility] Last Admin: 04/09/23 08:21 Dose: 1 mg Diphenhydramine HCl (Diphenhydramine Hcl 25 Mg Capsule) 50 mg PO BID PRN PRN Reason: Anxiety Last Admin: 04/08/23 09:46 Dose: 50 mg Haloperidol (Haloperidol 5 Mg Tablet) 5 mg PO Q6H PRN PRN Reason: psychosis Last Admin: 04/08/23 09:46 Dose: 5 mg Haloperidol (Haloperidol 5 Mg Tablet) 7.5 mg PO BID [facility] Last Admin: 04/09/23 08:21 Dose: 7.5 mg [employer] Carbonate ([employer] Carbonate Er 300 Mg Tablet.Er) 600 mg PO BID [facility] Last Admin: 04/09/23 08:21 Dose: 600 mg Magnesium Hydroxide (Milk Of Magnesia 30 Ml Oral.Susp) 30 ml PO DAILY PRN PRN Reason: Constipation Trazodone HCl (Trazodone Hcl 50 Mg Tablet) 50 mg PO BEDTIME MRX1 PRN PRN Reason: Insomnia Last Admin: 04/08/23 21:14 Dose: 50 mg Allergies Allergies Allergy/AdvReac Type Severity Reaction Status Date / Time Penicillins [PENICILLINS] Allergy Unknown RASH Verified 05/19/21 07:39 Assessment & Plan Assessment & Plan (1) Schizophrenia: Status: Acute Code(s): F20.9 - Schizophrenia, unspecified Plan 03/25: start haldol 5 and benadryl 50 BID. had been on zyprexa, which was apparently too sedating. 03/26: denies any effects or side effects. continue current mgmt. 03/27: Continue current regimen and plans 03/28: Continue current regimen and plans. Make is Benadryl p.r.n. and add Cogentin 1 mg b.i.d. and discontinue Vistaril p.r.n. 03/29: commitment paperwork filed. continue current mgmt for now. T/C increasing haldol dosing and moving toward WONG prior to discharge. 03/30 added clonazepam for anxiety s/s to paranoid delusions. 03/31 continue tx. 04/01 pt agreed to sign CV and continued treatment. 04/02: paranoid delusions continue as well as apparent minimization of AH. increase haldol from 5 BID to 7.5 BID. 04/13 continue same treatment 04/04 continue same treatment 04/05: pt has endorsed AH to staff. c/o restlessness. out of concern for akathisia, benadryl 25 BID added to the cogentin 1 BID pt is already on. sleeping well, though. more active and engaging than last week. per collateral from outpt providers who visited today, not at his baseline. 04/06: Pt continues to report AH- he reports minimal change in frequency but it appears content of voices less paranoid or threatening content. He does appear less paranoia. I do not see evidence of akathisia- no tapping of feet, or need to pace. He has been mostly in bed. He continues to report some anxiety around others. No SI/HI. No aggression towards self or others. d/c benadryl as too sedating during the day. 04/07: in light of pt's expression of feeling constantly over-energized with racing thoughts and AH, will initiate trial of lithium in the event of atypical bipolar diathesis presentation. continue haldol and cogentin for now. pt reports this uncomfortable sensation predates haldol use. if lithium provides no relief, will increase haldol further. 04/08: no change from yesterday. continue lithium trial for several days. +SI, racing thoughts, AH. 04/09: little change; says racing mind/AH a little less, but mostly since he's isolated himself; continue tx plan Patient educated on: diagnosis and medication risk/benefits Informed Consent: understands, does not understand and further education needed Reason for continued inpatient stay Substantial Risk for: rapid decompensation Time Spent With Patient Time: Total time managing care of this patient today ____ minutes.
[2023-04-09 20:10] VITALS: BP 124/60; PULSE 81; RESP 18; TEMP 37; O2SAT 98
[2023-04-09] MEDS: traZODone HCL 50 MG TABLET PO (22:41)
[2023-04-10 06:00] VITALS: BP 114/71; PULSE 88; TEMP 36.5; O2SAT 95
[2023-04-10] MEDS: Lithium Carbonate ER 300 MG TABLET.ER 600 MG PO ×2 (08:44→20:10)
[2023-04-10] MEDS: Benztropine Mesylate 1 MG TABLET PO ×2 (08:44→20:10)
[2023-04-10] MEDS: HaloperidoL 5 MG TABLET 7.5 MG PO (08:44)
[2023-04-10 18:00] VITALS: BP 131/76; PULSE 97; RESP 13; TEMP 36.2; O2SAT 97
--- NOTE | 2023-04-10 19:33 | P.PNPSI_ITS ---
Subjective Subjective Date of Service: 04/10/23 Reason For Visit: Schizophrenia Interim History: calm, cooperative. reports no change in his mood or experience. agreeable to increase haldol dosing to 10 mg BID. per staff, feeling better yesterday after sleeping. anx/dep good. denies SI/HI/AVH. Mental Status Exam Mental Status Exam Narrative: Pt is alert and oriented; behavior is cooperative and calm; dressed in casual attire; eye contact appropriate; Speech is nml amount, loudness, rate, and prosody and not pressured; no psychomotor agitation/retardation present; thought process is organized and goal directed; Thought content is on psychic distress, with no delusions or paranoia evident; no HI/VH expressed, +SI. c/o racing thoughts and AH. Patients insight and judgment are impaired. Diagnostics Vital Signs (24Hr): Vital Signs - 24 hr 04/09/23 20:10 04/10/23 06:00 Temperature 98.6 F 97.7 F Pulse Rate 81 88 Respiratory Rate 18 Blood Pressure 124/60 114/71 Pulse Oximetry 98 95 Oxygen Delivery Method Room Air Room Air BMI result Body Mass Index 41.0 Labs 03/24/23 13:12 03/25/23 08:29 Medications Medications Current Medications Acetaminophen (Acetaminophen 325 Mg Tablet) 650 mg PO Q6H PRN PRN Reason: Headache/Pain Mild Scale (1-3) Al Hydroxide/Mg Hydroxide (Magnesium Hydrox/Alum Hydrox 30 Ml Oral.Susp) 30 ml PO Q6H PRN PRN Reason: Heartburn/Nausea Benztropine Mesylate (Benztropine Mesylate 1 Mg Tablet) 1 mg PO BID [facility] Last Admin: 04/10/23 08:44 Dose: 1 mg Diphenhydramine HCl (Diphenhydramine Hcl 25 Mg Capsule) 50 mg PO BID PRN PRN Reason: Anxiety Last Admin: 04/08/23 09:46 Dose: 50 mg Haloperidol (Haloperidol 5 Mg Tablet) 5 mg PO Q6H PRN PRN Reason: psychosis Last Admin: 04/08/23 09:46 Dose: 5 mg Haloperidol (Haloperidol 5 Mg Tablet) 10 mg PO BID [facility] [place] Carbonate ([place] Carbonate Er 300 Mg Tablet.Er) 600 mg PO BID [facility] Last Admin: 04/10/23 08:44 Dose: 600 mg Magnesium Hydroxide (Milk Of Magnesia 30 Ml Oral.Susp) 30 ml PO DAILY PRN PRN Reason: Constipation Trazodone HCl (Trazodone Hcl 50 Mg Tablet) 50 mg PO BEDTIME MRX1 PRN PRN Reason: Insomnia Last Admin: 04/09/23 22:41 Dose: 50 mg Allergies Allergies Allergy/AdvReac Type Severity Reaction Status Date / Time Penicillins [PENICILLINS] Allergy Unknown RASH Verified 05/19/21 07:39 Assessment & Plan Assessment & Plan (1) Schizophrenia: Status: Acute Code(s): F20.9 - Schizophrenia, unspecified Plan 03/25: start haldol 5 and benadryl 50 BID. had been on zyprexa, which was apparently too sedating. 03/26: denies any effects or side effects. continue current mgmt. 03/27: Continue current regimen and plans 03/28: Continue current regimen and plans. Make is Benadryl p.r.n. and add Cogentin 1 mg b.i.d. and discontinue Vistaril p.r.n. 03/29: commitment paperwork filed. continue current mgmt for now. T/C increasing haldol dosing and moving toward WONG prior to discharge. 03/30 added clonazepam for anxiety s/s to paranoid delusions. 03/31 continue tx. 04/01 pt agreed to sign CV and continued treatment. 04/02: paranoid delusions continue as well as apparent minimization of AH. increase haldol from 5 BID to 7.5 BID. 04/13 continue same treatment 04/04 continue same treatment 04/05: pt has endorsed AH to staff. c/o restlessness. out of concern for akathisia, benadryl 25 BID added to the cogentin 1 BID pt is already on. sleeping well, though. more active and engaging than last week. per collateral from outpt providers who visited today, not at his baseline. 04/06: Pt continues to report AH- he reports minimal change in frequency but it appears content of voices less paranoid or threatening content. He does appear less paranoia. I do not see evidence of akathisia- no tapping of feet, or need to pace. He has been mostly in bed. He continues to report some anxiety around others. No SI/HI. No aggression towards self or others. d/c benadryl as too sedating during the day. 11/8: in light of pt's expression of feeling constantly over-energized with racing thoughts and AH, will initiate trial of lithium in the event of atypical bipolar diathesis presentation. continue haldol and cogentin for now. pt reports this uncomfortable sensation predates haldol use. if lithium provides no relief, will increase haldol further. 04/08: no change from yesterday. continue lithium trial for several days. +SI, racing thoughts, AH. 04/10: reports no change from several days ago. agreeable to increase haldol from 7.5 BID to 10 BID. Reason for continued inpatient stay Substantial Risk for: harm to self, inability to function and rapid decompensation Time Spent With Patient Time: Total time managing care of this patient today ____ minutes.
[2023-04-10] MEDS: traZODone HCL 50 MG TABLET PO (20:10)
[2023-04-10] MEDS: HaloperidoL 5 MG TABLET 10 MG PO (20:10)
[2023-04-11 07:30] VITALS: BP 135/69; PULSE 92; RESP 20; TEMP 36.6; O2SAT 96
[2023-04-11 08:41] LABS: Lithium 0.45 mmol/L (0.60-1.20)
[2023-04-11] MEDS: Lithium Carbonate ER 300 MG TABLET.ER 600 MG PO ×2 (09:06→21:02)
[2023-04-11] MEDS: HaloperidoL 5 MG TABLET 10 MG PO ×2 (09:06→21:02)
[2023-04-11] MEDS: Benztropine Mesylate 1 MG TABLET PO ×2 (09:07→21:02)
[2023-04-11 19:30] VITALS: BP 143/71; PULSE 87; RESP 15; TEMP 36.2; O2SAT 97
--- NOTE | 2023-04-11 20:39 | HO.PSYCHPN ---
Subjective Subjective Date of Service: 04/11/23 Reason For Visit: Schizophrenia Interim History: pt seen alone, and then with brother. pt and brother agree pt actually had been doing better symptoms-w[place] on a previous regimen involving WONG. agrees to discuss with outpt providers and find out what that was and then discuss with pt. problem with the regimen was that he was sleeping so much he could not work. but he can't work anyway now, so he figures feeling better is at least an improvement if he can't work either way. doesn't feel lithium or increase in haldol has helped him at all. per staff, flat, withdrawn, AVH. Mental Status Exam Mental Status Exam Narrative: Pt is alert and oriented; behavior is cooperative and calm; dressed in casual attire; eye contact appropriate; Speech is nml amount, loudness, rate, and prosody and not pressured; no psychomotor agitation/retardation present; thought process is organized and goal directed; Thought content is on psychic distress, with no delusions or paranoia evident; no HI/VH expressed, +SI. c/o racing thoughts and AH. Patients insight and judgment are impaired. Diagnostics Vital Signs (24Hr): Vital Signs - 24 hr 04/11/23 07:30 Temperature 97.9 F Pulse Rate 92 Respiratory Rate 20 Blood Pressure 135/69 Pulse Oximetry 96 Oxygen Delivery Method Room Air BMI result Body Mass Index 41.0 Labs 03/24/23 13:12 03/25/23 08:29 Labs: Laboratory Results - last 48 hr 04/11/23 08:21 [place] 0.45 L Medications Medications Current Medications Acetaminophen (Acetaminophen 325 Mg Tablet) 650 mg PO Q6H PRN PRN Reason: Headache/Pain Mild Scale (1-3) Al Hydroxide/Mg Hydroxide (Magnesium Hydrox/Alum Hydrox 30 Ml Oral.Susp) 30 ml PO Q6H PRN PRN Reason: Heartburn/Nausea Benztropine Mesylate (Benztropine Mesylate 1 Mg Tablet) 1 mg PO BID [facility] Last Admin: 04/11/23 09:07 Dose: 1 mg Diphenhydramine HCl (Diphenhydramine Hcl 25 Mg Capsule) 50 mg PO BID PRN PRN Reason: Anxiety Last Admin: 04/08/23 09:46 Dose: 50 mg Haloperidol (Haloperidol 5 Mg Tablet) 5 mg PO Q6H PRN PRN Reason: psychosis Last Admin: 04/08/23 09:46 Dose: 5 mg Haloperidol (Haloperidol 5 Mg Tablet) 10 mg PO BID [facility] Last Admin: 04/11/23 09:06 Dose: 10 mg [place] Carbonate ([place] Carbonate Er 300 Mg Tablet.Er) 600 mg PO BID [facility] Last Admin: 04/11/23 09:06 Dose: 600 mg Magnesium Hydroxide (Milk Of Magnesia 30 Ml Oral.Susp) 30 ml PO DAILY PRN PRN Reason: Constipation Trazodone HCl (Trazodone Hcl 50 Mg Tablet) 50 mg PO BEDTIME MRX1 PRN PRN Reason: Insomnia Last Admin: 04/10/23 20:10 Dose: 50 mg Allergies Allergies Allergy/AdvReac Type Severity Reaction Status Date / Time Penicillins [PENICILLINS] Allergy Unknown RASH Verified 05/19/21 07:39 Assessment & Plan Assessment & Plan (1) Schizophrenia: Status: Acute Code(s): F20.9 - Schizophrenia, unspecified Plan 03/25: start haldol 5 and benadryl 50 BID. had been on zyprexa, which was apparently too sedating. 03/26: denies any effects or side effects. continue current mgmt. 03/27: Continue current regimen and plans 03/28: Continue current regimen and plans. Make is Benadryl p.r.n. and add Cogentin 1 mg b.i.d. and discontinue Vistaril p.r.n. 03/29: commitment paperwork filed. continue current mgmt for now. T/C increasing haldol dosing and moving toward WONG prior to discharge. 03/30 added clonazepam for anxiety s/s to paranoid delusions. 03/31 continue tx. 04/01 pt agreed to sign CV and continued treatment. 04/02: paranoid delusions continue as well as apparent minimization of AH. increase haldol from 5 BID to 7.5 BID. 04/13 continue same treatment 04/04 continue same treatment 04/05: pt has endorsed AH to staff. c/o restlessness. out of concern for akathisia, benadryl 25 BID added to the cogentin 1 BID pt is already on. sleeping well, though. more active and engaging than last week. per collateral from outpt providers who visited today, not at his baseline. 04/06: Pt continues to report AH- he reports minimal change in frequency but it appears content of voices less paranoid or threatening content. He does appear less paranoia. I do not see evidence of akathisia- no tapping of feet, or need to pace. He has been mostly in bed. He continues to report some anxiety around others. No SI/HI. No aggression towards self or others. d/c benadryl as too sedating during the day. 04/07: in light of pt's expression of feeling constantly over-energized with racing thoughts and AH, will initiate trial of lithium in the event of atypical bipolar diathesis presentation. continue haldol and cogentin for now. pt reports this uncomfortable sensation predates haldol use. if lithium provides no relief, will increase haldol further. 04/08: no change from yesterday. continue lithium trial for several days. +SI, racing thoughts, AH. 04/10: reports no change from several days ago. agreeable to increase haldol from 7.5 BID to 10 BID. 04/11: continue current regimen. research previous regimen of 1.5-2 yrs back which involved WONG, on which he and his brother feel he did better. check labs. Reason for continued inpatient stay Substantial Risk for: harm to self, inability to function and rapid decompensation Time Spent With Patient Time: Total time managing care of this patient today __35__ minutes.
[2023-04-11] MEDS: diphenhydrAMINE HCL 25 MG CAPSULE 50 MG PO (21:02)
[2023-04-12] MEDS: diphenhydrAMINE HCL 25 MG CAPSULE 50 MG PO ×2 (06:19→20:20)
[2023-04-12 07:45] VITALS: BP 128/72; PULSE 93; RESP 16; TEMP 36.9; O2SAT 98
[2023-04-12 08:50] LABS: MANUAL DIFF FLAG NO
[2023-04-12] MEDS: Lithium Carbonate ER 300 MG TABLET.ER 600 MG PO ×2 (08:56→20:18)
[2023-04-12] MEDS: HaloperidoL 5 MG TABLET 10 MG PO ×2 (08:56→20:17)
[2023-04-12] MEDS: Benztropine Mesylate 1 MG TABLET PO ×2 (08:56→20:17)
[2023-04-12 09:01] LABS: Lithium 0.42 mmol/L (0.60-1.20)
[2023-04-12 09:08] LABS: Alanine Aminotransferase 60 U/L (0-40); Albumin Level 4.5 g/dL (3.5-5.0); Alkaline Phosphatase 59 U/L (39-117); Anion Gap 11 (12-20); Aspartate Amino Transferase 21 U/L (5-37); Bilirubin Direct 0.1 mg/dL (0.0-0.5); Bilirubin Total 0.3 mg/dL (0.0-1.0); Blood Urea Nitrogen 12 mg/dL (9-16); Calcium 10.2 mg/dL (8.4-10.2); Carbon Dioxide 30 mmol/L (22-29); Chloride 103 mmol/L (96-108); Creatinine Clr Calc Pharmacy 159.6; Estimated Glomerular Filt Rate > 60; Glucose Random 96 mg/dL (60-115); Potassium 4.1 mmol/L (3.3-5.1); Sodium 140 mmol/L (135-145); Total Protein 7.9 g/dL (6.5-8.0)
[2023-04-12 09:12] LABS: Basophils Percent Auto 0.3 % (0-2); Eosinophils Absolute Auto 0.4 X10*3/uL (0.0-0.4); Eosinophils Percent Auto 3.1 % (0-4); Hematocrit 44.2 % (42.0-52.0); Hemoglobin 14.4 g/dl (14.0-18.0); Imm Gran Abs Auto 0.04 X10*3/uL (0.00-0.03); Imm Gran Pct Auto 0.4 % (0.0-0.4); Lymphocytes Percent Auto 26.7 % (20-40); Mean Corpuscular HGB Conc 32.6 g/dl (31.0-36.0); Mean Corpuscular Hemoglobin 29.6 pg (27.0-33.0); Mean Corpuscular Volume 90.8 fL (80.0-98.0); Mean Platelet Volume 9.1 fL (9.4-12.4); Monocytes Absolute Auto 0.7 X10*3/uL (0.1-1.2); Monocytes Percent Auto 6.5 % (2-11); Platelet Count 333 X10*3/uL (160-400); Red Blood Count 4.87 X10*6/uL (4.60-5.80); Red Cell Distribution Width 12.5 % (11.0-16.0); White Blood Count 11.1 X10*3/uL (4.8-10.8)
--- NOTE | 2023-04-12 14:44 | HO.PSYCHPN ---
Subjective Subjective Date of Service: 04/12/23 Reason For Visit: Schizophrenia Interim History: no change. per staff, no change. LM for jake at [facility] offices. Mental Status Exam Mental Status Exam Narrative: Pt is alert and oriented; behavior is cooperative and calm; dressed in casual attire; eye contact appropriate; Speech is nml amount, loudness, rate, and prosody and not pressured; no psychomotor agitation/retardation present; thought process is organized and goal directed; Thought content is on psychic distress, with no delusions or paranoia evident; no HI/VH expressed, +SI. c/o racing thoughts and AH. Patients insight and judgment are impaired. Diagnostics Vital Signs (24Hr): Vital Signs - 24 hr 04/11/23 19:30 04/12/23 07:45 Temperature 97.2 F 98.4 F Pulse Rate 87 93 Respiratory Rate 15 16 Blood Pressure 143/71 H 128/72 Pulse Oximetry 97 98 Oxygen Delivery Method Room Air Room Air BMI result Body Mass Index 41.0 Labs 04/12/23 08:45 04/12/23 08:45 Labs: Laboratory Results - last 48 hr 04/11/23 04/12/23 08:21 08:45 WBC 11.1 H RBC 4.87 Hgb 14.4 Hct 44.2 MCV 90.8 MCH 29.6 MCHC 32.6 RDW 12.5 Plt Count 333 MPV 9.1 L Immature Gran % (Auto) 0.4 Neut % (Auto) 63.0 Lymph % (Auto) 26.7 [place] % (Auto) 6.5 Eos % (Auto) 3.1 Baso % (Auto) 0.3 Lymph # (Auto) 3.0 [place] # (Auto) 0.7 Eos # (Auto) 0.4 Baso # (Auto) 0.0 Abs Immat Gran (auto) 0.04 H Absolute Neuts (auto) 7.0 Absolute Nucleated RBC 0.000 Nucleated RBC % (auto) 0.0 Sodium 140 Potassium 4.1 Chloride 103 Carbon Dioxide 30 H Anion Gap 11 L BUN 12 Creatinine 0.96 Estim Creat Clear Calc 159.6 Estimated GFR > 60 Random Glucose 96 Calcium 10.2 Total Bilirubin 0.3 Direct Bilirubin 0.1 AST 21 ALT 60 H Alkaline Phosphatase 59 Total Protein 7.9 Albumin 4.5 [place] 0.45 L 0.42 L Medications Medications Current Medications Acetaminophen (Acetaminophen 325 Mg Tablet) 650 mg PO Q6H PRN PRN Reason: Headache/Pain Mild Scale (1-3) Al Hydroxide/Mg Hydroxide (Magnesium Hydrox/Alum Hydrox 30 Ml Oral.Susp) 30 ml PO Q6H PRN PRN Reason: Heartburn/Nausea Benztropine Mesylate (Benztropine Mesylate 1 Mg Tablet) 1 mg PO BID [facility] Last Admin: 04/12/23 08:56 Dose: 1 mg Diphenhydramine HCl (Diphenhydramine Hcl 25 Mg Capsule) 50 mg PO BID PRN PRN Reason: Anxiety Last Admin: 04/12/23 06:19 Dose: 50 mg Haloperidol (Haloperidol 5 Mg Tablet) 5 mg PO Q6H PRN PRN Reason: psychosis Last Admin: 04/08/23 09:46 Dose: 5 mg Haloperidol (Haloperidol 5 Mg Tablet) 10 mg PO BID [facility] Last Admin: 04/12/23 08:56 Dose: 10 mg [place] Carbonate ([place] Carbonate Er 300 Mg Tablet.Er) 600 mg PO BID [facility] Last Admin: 04/12/23 08:56 Dose: 600 mg Magnesium Hydroxide (Milk Of Magnesia 30 Ml Oral.Susp) 30 ml PO DAILY PRN PRN Reason: Constipation Trazodone HCl (Trazodone Hcl 50 Mg Tablet) 50 mg PO BEDTIME MRX1 PRN PRN Reason: Insomnia Last Admin: 04/10/23 20:10 Dose: 50 mg Allergies Allergies Allergy/AdvReac Type Severity Reaction Status Date / Time Penicillins [PENICILLINS] Allergy Unknown RASH Verified 05/19/21 07:39 Assessment & Plan Assessment & Plan (1) Schizophrenia: Status: Acute Code(s): F20.9 - Schizophrenia, unspecified Plan 03/25: start haldol 5 and benadryl 50 BID. had been on zyprexa, which was apparently too sedating. 03/26: denies any effects or side effects. continue current mgmt. 03/27: Continue current regimen and plans 03/28: Continue current regimen and plans. Make is Benadryl p.r.n. and add Cogentin 1 mg b.i.d. and discontinue Vistaril p.r.n. 03/29: commitment paperwork filed. continue current mgmt for now. T/C increasing haldol dosing and moving toward WONG prior to discharge. 03/30 added clonazepam for anxiety s/s to paranoid delusions. 03/31 continue tx. 04/01 pt agreed to sign CV and continued treatment. 04/02: paranoid delusions continue as well as apparent minimization of AH. increase haldol from 5 BID to 7.5 BID. 04/13 continue same treatment 04/04 continue same treatment 04/05: pt has endorsed AH to staff. c/o restlessness. out of concern for akathisia, benadryl 25 BID added to the cogentin 1 BID pt is already on. sleeping well, though. more active and engaging than last week. per collateral from outpt providers who visited today, not at his baseline. 04/06: Pt continues to report AH- he reports minimal change in frequency but it appears content of voices less paranoid or threatening content. He does appear less paranoia. I do not see evidence of akathisia- no tapping of feet, or need to pace. He has been mostly in bed. He continues to report some anxiety around others. No SI/HI. No aggression towards self or others. d/c benadryl as too sedating during the day. 04/07: in light of pt's expression of feeling constantly over-energized with racing thoughts and AH, will initiate trial of lithium in the event of atypical bipolar diathesis presentation. continue haldol and cogentin for now. pt reports this uncomfortable sensation predates haldol use. if lithium provides no relief, will increase haldol further. 04/08: no change from yesterday. continue lithium trial for several days. +SI, racing thoughts, AH. 04/09: little change; says racing mind/AH a little less, but mostly since he's isolated himself; continue tx plan 04/10: reports no change from several days ago. agreeable to increase haldol from 7.5 BID to 10 BID. 04/11: continue current regimen. research previous regimen of 1.5-2 yrs back which involved WONG, on which he and his brother feel he did better. check labs. 04/12: left message for jake at [facility] for meds Hx. no change in presentation. Reason for continued inpatient stay Substantial Risk for: inability to function and rapid decompensation Time Spent With Patient Time: Total time managing care of this patient today __25__ minutes.
[2023-04-12 20:00] VITALS: BP 132/75; PULSE 108; RESP 18; TEMP 36.4; O2SAT 96
[2023-04-13] MEDS: diphenhydrAMINE HCL 25 MG CAPSULE 50 MG PO ×2 (02:48→20:20)
[2023-04-13 06:00] VITALS: BP 109/58; PULSE 82; RESP 14; TEMP 36.6; O2SAT 98
[2023-04-13] MEDS: Lithium Carbonate ER 300 MG TABLET.ER 600 MG PO ×2 (08:39→20:19)
[2023-04-13] MEDS: Benztropine Mesylate 1 MG TABLET PO ×2 (08:40→20:19)
[2023-04-13] MEDS: HaloperidoL 5 MG TABLET 10 MG PO ×2 (08:40→20:19)
--- NOTE | 2023-04-13 14:29 | P.PNPSI_ITS ---
Subjective Subjective Date of Service: 04/13/23 Reason For Visit: Schizophrenia Interim History: no change. per staff, med compliant. no change in presentation. Mental Status Exam Mental Status Exam Narrative: Pt is alert and oriented; behavior is cooperative and calm; dressed in casual attire; eye contact appropriate; Speech is nml amount, loudness, rate, and prosody and not pressured; no psychomotor agitation/retardation present; thought process is organized and goal directed; Thought content is on psychic distress, with no delusions or paranoia evident; no HI/VH expressed, +SI. c/o racing thoughts and AH. Patients insight and judgment are impaired. Diagnostics Vital Signs (24Hr): Vital Signs - 24 hr 04/12/23 20:00 04/13/23 06:00 Temperature 97.5 F 97.9 F Pulse Rate 108 H 82 Respiratory Rate 18 14 Blood Pressure 132/75 109/58 L Pulse Oximetry 96 98 Oxygen Delivery Method Room Air Room Air BMI result Body Mass Index 41.0 Labs 04/12/23 08:45 04/12/23 08:45 Labs: Laboratory Results - last 48 hr 04/12/23 08:45 WBC 11.1 H RBC 4.87 Hgb 14.4 Hct 44.2 MCV 90.8 MCH 29.6 MCHC 32.6 RDW 12.5 Plt Count 333 MPV 9.1 L Immature Gran % (Auto) 0.4 Neut % (Auto) 63.0 Lymph % (Auto) 26.7 [place] % (Auto) 6.5 Eos % (Auto) 3.1 Baso % (Auto) 0.3 Lymph # (Auto) 3.0 [place] # (Auto) 0.7 Eos # (Auto) 0.4 Baso # (Auto) 0.0 Abs Immat Gran (auto) 0.04 H Absolute Neuts (auto) 7.0 Absolute Nucleated RBC 0.000 Nucleated RBC % (auto) 0.0 Sodium 140 Potassium 4.1 Chloride 103 Carbon Dioxide 30 H Anion Gap 11 L BUN 12 Creatinine 0.96 Estim Creat Clear Calc 159.6 Estimated GFR > 60 Random Glucose 96 Calcium 10.2 Total Bilirubin 0.3 Direct Bilirubin 0.1 AST 21 ALT 60 H Alkaline Phosphatase 59 Total Protein 7.9 Albumin 4.5 [place] 0.42 L Medications Medications Current Medications Acetaminophen (Acetaminophen 325 Mg Tablet) 650 mg PO Q6H PRN PRN Reason: Headache/Pain Mild Scale (1-3) Al Hydroxide/Mg Hydroxide (Magnesium Hydrox/Alum Hydrox 30 Ml Oral.Susp) 30 ml PO Q6H PRN PRN Reason: Heartburn/Nausea Benztropine Mesylate (Benztropine Mesylate 1 Mg Tablet) 1 mg PO BID [facility] Last Admin: 04/13/23 08:40 Dose: 1 mg Diphenhydramine HCl (Diphenhydramine Hcl 25 Mg Capsule) 50 mg PO BID PRN PRN Reason: Anxiety Last Admin: 04/13/23 02:48 Dose: 50 mg Haloperidol (Haloperidol 5 Mg Tablet) 5 mg PO Q6H PRN PRN Reason: psychosis Last Admin: 04/08/23 09:46 Dose: 5 mg Haloperidol (Haloperidol 5 Mg Tablet) 10 mg PO BID [facility] Last Admin: 04/13/23 08:40 Dose: 10 mg [place] Carbonate ([place] Carbonate Er 300 Mg Tablet.Er) 600 mg PO BID [facility] Last Admin: 04/13/23 08:39 Dose: 600 mg Magnesium Hydroxide (Milk Of Magnesia 30 Ml Oral.Susp) 30 ml PO DAILY PRN PRN Reason: Constipation Trazodone HCl (Trazodone Hcl 50 Mg Tablet) 50 mg PO BEDTIME MRX1 PRN PRN Reason: Insomnia Last Admin: 04/10/23 20:10 Dose: 50 mg Allergies Allergies Allergy/AdvReac Type Severity Reaction Status Date / Time Penicillins [PENICILLINS] Allergy Unknown RASH Verified 05/19/21 07:39 Assessment & Plan Assessment & Plan (1) Schizophrenia: Status: Acute Code(s): F20.9 - Schizophrenia, unspecified Plan 03/25: start haldol 5 and benadryl 50 BID. had been on zyprexa, which was apparently too sedating. 03/26: denies any effects or side effects. continue current mgmt. 03/27: Continue current regimen and plans 03/28: Continue current regimen and plans. Make is Benadryl p.r.n. and add Cogentin 1 mg b.i.d. and discontinue Vistaril p.r.n. 03/29: commitment paperwork filed. continue current mgmt for now. T/C increasing haldol dosing and moving toward WONG prior to discharge. 03/30 added clonazepam for anxiety s/s to paranoid delusions. 03/31 continue tx. 04/01 pt agreed to sign CV and continued treatment. 04/02: paranoid delusions continue as well as apparent minimization of AH. increase haldol from 5 BID to 7.5 BID. 04/13 continue same treatment 04/04 continue same treatment 04/05: pt has endorsed AH to staff. c/o restlessness. out of concern for akathisia, benadryl 25 BID added to the cogentin 1 BID pt is already on. sleeping well, though. more active and engaging than last week. per collateral from outpt providers who visited today, not at his baseline. 04/06: Pt continues to report AH- he reports minimal change in frequency but it appears content of voices less paranoid or threatening content. He does appear less paranoia. I do not see evidence of akathisia- no tapping of feet, or need to pace. He has been mostly in bed. He continues to report some anxiety around others. No SI/HI. No aggression towards self or others. d/c benadryl as too sedating during the day. 04/07: in light of pt's expression of feeling constantly over-energized with racing thoughts and AH, will initiate trial of lithium in the event of atypical bipolar diathesis presentation. continue haldol and cogentin for now. pt reports this uncomfortable sensation predates haldol use. if lithium provides no relief, will increase haldol further. 04/08: no change from yesterday. continue lithium trial for several days. +SI, racing thoughts, AH. 04/09: little change; says racing mind/AH a little less, but mostly since he's isolated himself; continue tx plan 04/10: reports no change from several days ago. agreeable to increase haldol from 7.5 BID to 10 BID. 04/11: continue current regimen. research previous regimen of 1.5-2 yrs back which involved WOGN, on which he and his brother feel he did better. check labs. 04/12: left message for jake at [facility] for meds Hx. no change in presentation. 04/13: no call-back from jake. spoke with blaise at [phone], who said she would fax medication Hx. no change in presentation. awaiting medication Hx for action. Reason for continued inpatient stay Substantial Risk for: harm to self, inability to function and rapid decompensation Time Spent With Patient Time: Total time managing care of this patient today _25___ minutes.
[2023-04-13 20:30] VITALS: BP 136/66; PULSE 90; RESP 16; TEMP 36.6; O2SAT 97
[2023-04-13] MEDS: Acetaminophen 325 MG TABLET 650 MG PO (21:35)
[2023-04-14] MEDS: diphenhydrAMINE HCL 25 MG CAPSULE 50 MG PO ×2 (06:31→20:39)
[2023-04-14 08:17] VITALS: BP 120/67; PULSE 84; RESP 20; TEMP 36.6; O2SAT 98
[2023-04-14] MEDS: Benztropine Mesylate 1 MG TABLET PO ×2 (08:19→20:33)
[2023-04-14] MEDS: Lithium Carbonate ER 300 MG TABLET.ER 600 MG PO ×2 (08:19→20:33)
[2023-04-14] MEDS: HaloperidoL 5 MG TABLET 10 MG PO ×2 (08:20→20:34)
--- NOTE | 2023-04-14 10:09 | P.PNPSI_ITS ---
Subjective Subjective Date of Service: 04/14/23 Reason For Visit: Schizophrenia Subjective Notes: Conditional Voluntary Interim History: Reviewed in team and . Patient presents guarded and brief during 1:1. Pt stated, I'm good. My meds are fine; I don't need anything . Isolative, not attending groups. Pt stated, I don't like groups; I like to be alone . denies SI/HI/VH/AH. Medication Compliance: Yes Side effects from medications: No Attending Groups: No Review of Systems Constitutional: Reports as per HPI Eyes: Reports as per HPI Reports as per HPI Cardiovascular: Reports as per HPI Respiratory: Reports as per HPI Gastrointestinal: Reports as per HPI Genitourinary: Reports as per HPI Musculoskeletal: Reports as per HPI Skin/Breast: Reports as per HPI Reports as per HPI Psychiatric: Reports as per HPI Endocrine: Reports as per HPI Hematologic/Lymphatic: Reports as per HPI Allergic/Immunologic: Reports as per HPI Mental Status Exam Mental Status Exam Narrative: Pt behavior is guarded and calm; dressed in casual attire; mood is described as good ; eye contact appropriate; Speech is normal rate, volume and prosody and not pressured; no psychomotor agitation/retardation present; thought process is organized; Thought content is on tx; denies any SI/HI/AH/VH. Diagnostics Vital Signs (24Hr): Vital Signs - 24 hr 04/13/23 20:30 04/14/23 08:17 Temperature 97.8 F 97.9 F Pulse Rate 90 84 Respiratory Rate 16 20 Blood Pressure 136/66 120/67 Pulse Oximetry 97 98 Oxygen Delivery Method Room Air Room Air BMI result Body Mass Index 41.0 Labs 04/12/23 08:45 04/12/23 08:45 Medications Medications Current Medications Acetaminophen (Acetaminophen 325 Mg Tablet) 650 mg PO Q6H PRN PRN Reason: Headache/Pain Mild Scale (1-3) Last Admin: 04/13/23 21:35 Dose: 650 mg Al Hydroxide/Mg Hydroxide (Magnesium Hydrox/Alum Hydrox 30 Ml Oral.Susp) 30 ml PO Q6H PRN PRN Reason: Heartburn/Nausea Benztropine Mesylate (Benztropine Mesylate 1 Mg Tablet) 1 mg PO BID [facility] Last Admin: 04/14/23 08:19 Dose: 1 mg Diphenhydramine HCl (Diphenhydramine Hcl 25 Mg Capsule) 50 mg PO BID PRN PRN Reason: Anxiety Last Admin: 04/14/23 06:31 Dose: 50 mg Haloperidol (Haloperidol 5 Mg Tablet) 5 mg PO Q6H PRN PRN Reason: psychosis Last Admin: 04/08/23 09:46 Dose: 5 mg Haloperidol (Haloperidol 5 Mg Tablet) 10 mg PO BID [facility] Last Admin: 04/14/23 08:20 Dose: 10 mg [place] Carbonate ([place] Carbonate Er 300 Mg Tablet.Er) 600 mg PO BID [facility] Last Admin: 04/14/23 08:19 Dose: 600 mg Magnesium Hydroxide (Milk Of Magnesia 30 Ml Oral.Susp) 30 ml PO DAILY PRN PRN Reason: Constipation Trazodone HCl (Trazodone Hcl 50 Mg Tablet) 50 mg PO BEDTIME MRX1 PRN PRN Reason: Insomnia Last Admin: 04/10/23 20:10 Dose: 50 mg Allergies Allergies Allergy/AdvReac Type Severity Reaction Status Date / Time Penicillins [PENICILLINS] Allergy Unknown RASH Verified 05/19/21 07:39 Assessment & Plan Assessment & Plan (1) Schizophrenia: Status: Acute Code(s): F20.9 - Schizophrenia, unspecified Plan 03/25: start haldol 5 and benadryl 50 BID. had been on zyprexa, which was apparently too sedating. 03/26: denies any effects or side effects. continue current mgmt. 03/27: Continue current regimen and plans 03/28: Continue current regimen and plans. Make is Benadryl p.r.n. and add Cogentin 1 mg b.i.d. and discontinue Vistaril p.r.n. 03/29: commitment paperwork filed. continue current mgmt for now. T/C increasing haldol dosing and moving toward WONG prior to discharge. 03/30 added clonazepam for anxiety s/s to paranoid delusions. 03/31 continue tx. 04/01 pt agreed to sign CV and continued treatment. 04/02: paranoid delusions continue as well as apparent minimization of AH. increase haldol from 5 BID to 7.5 BID. 04/13 continue same treatment 04/04 continue same treatment 04/05: pt has endorsed AH to staff. c/o restlessness. out of concern for akathisia, benadryl 25 BID added to the cogentin 1 BID pt is already on. sleeping well, though. more active and engaging than last week. per collateral from outpt providers who visited today, not at his baseline. 04/06: Pt continues to report AH- he reports minimal change in frequency but it appears content of voices less paranoid or threatening content. He does appear less paranoia. I do not see evidence of akathisia- no tapping of feet, or need to pace. He has been mostly in bed. He continues to report some anxiety around others. No SI/HI. No aggression towards self or others. d/c benadryl as too sedating during the day. 04/07: in light of pt's expression of feeling constantly over-energized with racing thoughts and AH, will initiate trial of lithium in the event of atypical bipolar diathesis presentation. continue haldol and cogentin for now. pt reports this uncomfortable sensation predates haldol use. if lithium provides no relief, will increase haldol further. 04/08: no change from yesterday. continue lithium trial for several days. +SI, racing thoughts, AH. 04/09: little change; says racing mind/AH a little less, but mostly since he's isolated himself; continue tx plan 04/10: reports no change from several days ago. agreeable to increase haldol from 7.5 BID to 10 BID. 04/11: continue current regimen. research previous regimen of 1.5-2 yrs back which involved WONG, on which he and his brother feel he did better. check labs. 04/12: left message for jake at [facility] for meds Hx. no change in presentation. 04/13: no call-back from jake. spoke with blaise at [phone], who said she would fax medication Hx. no change in presentation. awaiting medication Hx for action. 04/14: Continue current tx plan. Patient educated on: diagnosis and therapeutic strategies Informed Consent: understands Reason for continued inpatient stay Substantial Risk for: med/psych decompensation Time Spent With Patient Time: Total time managing care of this patient today _30___ minutes.
[2023-04-14 19:57] VITALS: BP 136/83; PULSE 105; RESP 18; TEMP 36.2; O2SAT 95
[2023-04-14] MEDS: Acetaminophen 325 MG TABLET 650 MG PO (23:41)
[2023-04-15 07:25] VITALS: BP 139/78; PULSE 90; RESP 16; TEMP 36.3; O2SAT 97
[2023-04-15 08:26] VITALS: BMI 40.7
[2023-04-15] MEDS: Acetaminophen 325 MG TABLET 650 MG PO ×2 (08:30→20:36)
[2023-04-15] MEDS: Benztropine Mesylate 1 MG TABLET PO ×2 (08:31→20:35)
[2023-04-15] MEDS: Lithium Carbonate ER 300 MG TABLET.ER 600 MG PO (08:32)
--- NOTE | 2023-04-15 09:23 | P.PNPSI_ITS ---
Subjective Subjective Date of Service: 04/15/23 Reason For Visit: Schizophrenia Subjective Notes: 3 Day Interim History: Reviewed with . Pt stated he signed a 3 day d/t not sleeping comfortably in these beds and making my neck hurt . He reports Tylenol being somewhat helpful. Pt states he continues to have auditory hallucinations and feels hopeless about the future. Pt stated, I want to be euthanized. I don't want to keep coming to the hospital. I used to never be like this. The voices in my head told me to hit my mom. The voices plan on driving me crazy. I wish someone could put me down. The voices were put there by someone else; only they can remove it. Medication Compliance: Yes Attending Groups: No Review of Systems Review of Systems As per HPI. Constitutional: Reports as per HPI Eyes: Reports as per HPI Reports as per HPI Cardiovascular: Reports as per HPI Respiratory: Reports as per HPI Gastrointestinal: Reports as per HPI Genitourinary: Reports as per HPI Musculoskeletal: Reports as per HPI Skin/Breast: Reports as per HPI Reports as per HPI Psychiatric: Reports as per HPI Endocrine: Reports as per HPI Hematologic/Lymphatic: Reports as per HPI Allergic/Immunologic: Reports as per HPI Mental Status Exam Mental Status Exam Narrative: Pt behavior is guarded and calm; dressed in casual attire; mood is depressed,hopeless; eye contact appropriate; Speech is normal rate, volume and prosody and not pressured; no psychomotor agitation/retardation present; thought process is organized; delusional; denies any SI/HI/VH. Reports auditory hallucinations. Diagnostics Vital Signs (24Hr): Vital Signs - 24 hr 04/14/23 19:57 04/15/23 07:25 Temperature 97.2 F 97.3 F Pulse Rate 105 H 90 Respiratory Rate 18 16 Blood Pressure 136/83 139/78 Pulse Oximetry 95 97 Oxygen Delivery Method Room Air Room Air BMI result Body Mass Index 40.7 Labs 04/12/23 08:45 04/12/23 08:45 Medications Medications Current Medications Acetaminophen (Acetaminophen 325 Mg Tablet) 650 mg PO Q6H PRN PRN Reason: Headache/Pain Mild Scale (1-3) Last Admin: 04/15/23 08:30 Dose: 650 mg Al Hydroxide/Mg Hydroxide (Magnesium Hydrox/Alum Hydrox 30 Ml Oral.Susp) 30 ml PO Q6H PRN PRN Reason: Heartburn/Nausea Benztropine Mesylate (Benztropine Mesylate 1 Mg Tablet) 1 mg PO BID [facility] Last Admin: 04/15/23 08:31 Dose: 1 mg Diphenhydramine HCl (Diphenhydramine Hcl 25 Mg Capsule) 50 mg PO BID PRN PRN Reason: Anxiety Last Admin: 04/14/23 20:39 Dose: 50 mg Haloperidol (Haloperidol 5 Mg Tablet) 5 mg PO Q6H PRN PRN Reason: psychosis Last Admin: 04/08/23 09:46 Dose: 5 mg Haloperidol (Haloperidol 5 Mg Tablet) 10 mg PO BID [facility] Last Admin: 04/14/23 20:34 Dose: 10 mg [place] Carbonate ([place] Carbonate Er 300 Mg Tablet.Er) 600 mg PO BID [facility] Last Admin: 04/15/23 08:32 Dose: 600 mg Magnesium Hydroxide (Milk Of Magnesia 30 Ml Oral.Susp) 30 ml PO DAILY PRN PRN Reason: Constipation Trazodone HCl (Trazodone Hcl 50 Mg Tablet) 50 mg PO BEDTIME MRX1 PRN PRN Reason: Insomnia Last Admin: 04/10/23 20:10 Dose: 50 mg Allergies Allergies Allergy/AdvReac Type Severity Reaction Status Date / Time Penicillins [PENICILLINS] Allergy Unknown RASH Verified 05/19/21 07:39 Assessment & Plan Assessment & Plan (1) Schizophrenia: Status: Acute Code(s): F20.9 - Schizophrenia, unspecified Plan 03/25: start haldol 5 and benadryl 50 BID. had been on zyprexa, which was apparently too sedating. 03/26: denies any effects or side effects. continue current mgmt. 03/27: Continue current regimen and plans 03/28: Continue current regimen and plans. Make is Benadryl p.r.n. and add Cogentin 1 mg b.i.d. and discontinue Vistaril p.r.n. 03/29: commitment paperwork filed. continue current mgmt for now. T/C increasing haldol dosing and moving toward WONG prior to discharge. 03/30 added clonazepam for anxiety s/s to paranoid delusions. 03/31 continue tx. 04/01 pt agreed to sign CV and continued treatment. 04/02: paranoid delusions continue as well as apparent minimization of AH. increase haldol from 5 BID to 7.5 BID. 04/13 continue same treatment 04/04 continue same treatment 04/05: pt has endorsed AH to staff. c/o restlessness. out of concern for akathisia, benadryl 25 BID added to the cogentin 1 BID pt is already on. sleeping well, though. more active and engaging than last week. per collateral from outpt providers who visited today, not at his baseline. 04/06: Pt continues to report AH- he reports minimal change in frequency but it appears content of voices less paranoid or threatening content. He does appear less paranoia. I do not see evidence of akathisia- no tapping of feet, or need to pace. He has been mostly in bed. He continues to report some anxiety around others. No SI/HI. No aggression towards self or others. d/c benadryl as too sedating during the day. 04/07: in light of pt's expression of feeling constantly over-energized with racing thoughts and AH, will initiate trial of lithium in the event of atypical bipolar diathesis presentation. continue haldol and cogentin for now. pt reports this uncomfortable sensation predates haldol use. if lithium provides no relief, will increase haldol further. 04/08: no change from yesterday. continue lithium trial for several days. +SI, racing thoughts, AH. 04/09: little change; says racing mind/AH a little less, but mostly since he's isolated himself; continue tx plan 04/10: reports no change from several days ago. agreeable to increase haldol from 7.5 BID to 10 BID. 04/11: continue current regimen. research previous regimen of 1.5-2 yrs back which involved WONG, on which he and his brother feel he did better. check labs. 04/12: left message for jake at [facility] for meds Hx. no change in presentation. 04/13: no call-back from jake. spoke with blaise at [phone], who said she would fax medication Hx. no change in presentation. awaiting medication Hx for action. 04/14: Continue current tx plan. 04/15: Pt stated he signed a 3 day d/t not sleeping comfortably in these beds and making my neck hurt . He reports Tylenol being somewhat helpful. Pt states he continues to have auditory hallucinations and feels hopeless about the future. Pt stated, I want to be euthanized. I don't want to keep coming to the hospital. I used to never be like this. The voices in my head told me to hit my mom. The voices plan on driving me crazy. I wish someone could put me down. The voices were put there by someone else; only they can remove it. Patient educated on: diagnosis, medication risk/benefits and therapeutic strategies Informed Consent: understands Reason for continued inpatient stay Substantial Risk for: med/psych decompensation Time Spent With Patient Time: Total time managing care of this patient today _30___ minutes.
[2023-04-15] MEDS: HaloperidoL 5 MG TABLET 10 MG PO ×2 (10:16→20:34)
--- NOTE | 2023-04-15 13:00 | PC.NURSE ---
Submitted 3 day notice which is up on 04/20/23Wednesday; Team notified.
[2023-04-15 20:18] VITALS: BP 142/84; PULSE 105; RESP 16; TEMP 36.7; O2SAT 97
[2023-04-15] MEDS: Lithium Carbonate ER 300 MG TABLET.ER PO (20:34)
[2023-04-15] MEDS: traZODone HCL 50 MG TABLET PO (20:34)
[2023-04-16 08:09] VITALS: BP 138/78; PULSE 99; RESP 16; TEMP 36.3; O2SAT 98
[2023-04-16] MEDS: Benztropine Mesylate 1 MG TABLET PO ×2 (08:46→20:40)
[2023-04-16] MEDS: Lithium Carbonate ER 300 MG TABLET.ER PO ×2 (08:46→20:40)
[2023-04-16] MEDS: HaloperidoL 5 MG TABLET 10 MG PO ×2 (08:46→20:39)
--- NOTE | 2023-04-16 09:08 | P.PNPSI_ITS ---
Subjective Subjective Date of Service: 04/16/23 Reason For Visit: Schizophrenia Subjective Notes: 3 Day Interim History: Reviewed with . Pt presents guarded today. He reports feeling okay today. Pt stated, my neck is feeling better today. I'm still worried about the voices . Keeping to self. Medication Compliance: Yes Side effects from medications: No Attending Groups: No Review of Systems Review of Systems As per HPI. Yes all other systems are reviewed and are negative and Unobtainable due to mental status Constitutional: Reports as per HPI Eyes: Reports as per HPI Reports as per HPI Cardiovascular: Reports as per HPI Respiratory: Reports as per HPI Gastrointestinal: Reports as per HPI Genitourinary: Reports as per HPI Musculoskeletal: Reports as per HPI Skin/Breast: Reports as per HPI Reports as per HPI Psychiatric: Reports as per HPI Endocrine: Reports as per HPI Hematologic/Lymphatic: Reports as per HPI Allergic/Immunologic: Reports as per HPI Mental Status Exam Mental Status Exam Narrative: Pt behavior is guarded and calm; dressed in casual attire; mood is depressed,hopeless; eye contact appropriate; Speech is normal rate, volume and prosody and not pressured; no psychomotor agitation/retardation present; thought process is organized; delusional; denies any SI/HI/VH. Reports auditory hallucinations. Patient Appearance: Well Grooomed and Appropriate Patient Orientation: Person and Situation Level of Consciousness: Awake and Appropriate Patient Behavior: Guarded and Passive Mood Description: Calm Affect Description: Constricted Patient Cognition Impaired: Yes Ability to Follow Directions: Good Speech Pattern: Clear Diagnostics Vital Signs (24Hr): Vital Signs - 24 hr 04/15/23 20:18 04/16/23 08:09 Temperature 98.1 F 97.4 F Pulse Rate 105 H 99 Respiratory Rate 16 16 Blood Pressure 142/84 H 138/78 Pulse Oximetry 97 98 Oxygen Delivery Method Room Air Room Air BMI result Body Mass Index 40.7 Labs 04/12/23 08:45 04/12/23 08:45 Medications Medications Current Medications Acetaminophen (Acetaminophen 325 Mg Tablet) 650 mg PO Q6H PRN PRN Reason: Headache/Pain Mild Scale (1-3) Last Admin: 04/15/23 20:36 Dose: 650 mg Al Hydroxide/Mg Hydroxide (Magnesium Hydrox/Alum Hydrox 30 Ml Oral.Susp) 30 ml PO Q6H PRN PRN Reason: Heartburn/Nausea Benztropine Mesylate (Benztropine Mesylate 1 Mg Tablet) 1 mg PO BID [facility] Last Admin: 04/16/23 08:46 Dose: 1 mg Diphenhydramine HCl (Diphenhydramine Hcl 25 Mg Capsule) 50 mg PO BID PRN PRN Reason: Anxiety Last Admin: 04/14/23 20:39 Dose: 50 mg Haloperidol (Haloperidol 5 Mg Tablet) 5 mg PO Q6H PRN PRN Reason: psychosis Last Admin: 04/08/23 09:46 Dose: 5 mg Haloperidol (Haloperidol 5 Mg Tablet) 10 mg PO BID [facility] Last Admin: 04/16/23 08:46 Dose: 10 mg [place] Carbonate ([place] Carbonate Er 300 Mg Tablet.Er) 300 mg PO BID [facility] Last Admin: 04/16/23 08:46 Dose: 300 mg Magnesium Hydroxide (Milk Of Magnesia 30 Ml Oral.Susp) 30 ml PO DAILY PRN PRN Reason: Constipation Trazodone HCl (Trazodone Hcl 50 Mg Tablet) 50 mg PO BEDTIME MRX1 PRN PRN Reason: Insomnia Last Admin: 04/15/23 20:34 Dose: 50 mg Allergies Allergies Allergy/AdvReac Type Severity Reaction Status Date / Time Penicillins [PENICILLINS] Allergy Unknown RASH Verified 05/19/21 07:39 Assessment & Plan Assessment & Plan (1) Schizophrenia: Status: Acute Code(s): F20.9 - Schizophrenia, unspecified Plan 03/25: start haldol 5 and benadryl 50 BID. had been on zyprexa, which was apparently too sedating. 03/26: denies any effects or side effects. continue current mgmt. 03/27: Continue current regimen and plans 03/28: Continue current regimen and plans. Make is Benadryl p.r.n. and add Cogentin 1 mg b.i.d. and discontinue Vistaril p.r.n. 03/29: commitment paperwork filed. continue current mgmt for now. T/C increasing haldol dosing and moving toward WONG prior to discharge. 03/30 added clonazepam for anxiety s/s to paranoid delusions. 03/31 continue tx. 04/01 pt agreed to sign CV and continued treatment. 04/02: paranoid delusions continue as well as apparent minimization of AH. increase haldol from 5 BID to 7.5 BID. 04/13 continue same treatment 04/04 continue same treatment 04/05: pt has endorsed AH to staff. c/o restlessness. out of concern for akathisia, benadryl 25 BID added to the cogentin 1 BID pt is already on. sleeping well, though. more active and engaging than last week. per collateral from outpt providers who visited today, not at his baseline. 04/06: Pt continues to report AH- he reports minimal change in frequency but it appears content of voices less paranoid or threatening content. He does appear less paranoia. I do not see evidence of akathisia- no tapping of feet, or need to pace. He has been mostly in bed. He continues to report some anxiety around others. No SI/HI. No aggression towards self or others. d/c benadryl as too sedating during the day. 04/07: in light of pt's expression of feeling constantly over-energized with racing thoughts and AH, will initiate trial of lithium in the event of atypical bipolar diathesis presentation. continue haldol and cogentin for now. pt reports this uncomfortable sensation predates haldol use. if lithium provides no relief, will increase haldol further. 04/08: no change from yesterday. continue lithium trial for several days. +SI, racing thoughts, AH. 04/09: little change; says racing mind/AH a little less, but mostly since he's isolated himself; continue tx plan 04/10: reports no change from several days ago. agreeable to increase haldol from 7.5 BID to 10 BID. 04/11: continue current regimen. research previous regimen of 1.5-2 yrs back which involved WONG, on which he and his brother feel he did better. check labs. 04/12: left message for jake at [facility] [place] [facility] for meds Hx. no change in presentation. 04/13: no call-back from jake. spoke with blaise at [phone], who said she would fax medication Hx. no change in presentation. awaiting medication Hx for action. 04/14: Continue current tx plan. 04/15: Pt stated he signed a 3 day d/t not sleeping comfortably in these beds and making my neck hurt . He reports Tylenol being somewhat helpful. Pt states he continues to have auditory hallucinations and feels hopeless about the future. Pt stated, I want to be euthanized. I don't want to keep coming to the hospital. I used to never be like this. The voices in my head told me to hit my mom. The voices plan on driving me crazy. I wish someone could put me down. The voices were put there by someone else; only they can remove it. 04/16: Pt presents guarded today. He reports feeling okay today. Pt stated, my neck is feeling better today. I'm still worried about the voices . Keeping to self. [place] decreased to 300mg PO BID. Patient educated on: medication risk/benefits and therapeutic strategies Informed Consent: understands Reason for continued inpatient stay Substantial Risk for: med/psych decompensation Time Spent With Patient Time: Total time managing care of this patient today _20___ minutes.
[2023-04-16] MEDS: Lidocaine 4 % Patch ADH..PATCH 1 PATCH TRANSDERMA (15:42)
[2023-04-16 20:04] VITALS: BP 136/75; PULSE 115; RESP 18; TEMP 37; O2SAT 96
[2023-04-16 20:05] VITALS: BP 136/75; PULSE 115; TEMP 37; O2SAT 96
[2023-04-16] MEDS: traZODone HCL 50 MG TABLET PO (20:40)
[2023-04-17 08:20] VITALS: BP 125/69; PULSE 115; RESP 18; TEMP 37; O2SAT 97
[2023-04-17] MEDS: Benztropine Mesylate 1 MG TABLET PO ×2 (08:35→20:29)
[2023-04-17] MEDS: HaloperidoL 5 MG TABLET 10 MG PO ×2 (08:35→20:28)
[2023-04-17] MEDS: Lithium Carbonate ER 300 MG TABLET.ER PO ×2 (08:35→20:29)
--- NOTE | 2023-04-17 17:23 | HO.PSYCHPN ---
Subjective Subjective Date of Service: 04/17/23 Reason For Visit: Schizophrenia Interim History: Reviewed with RN. Patient reports he is feeling better since admission. He remains guarded and constricted. He says he is sleeping well. He sleeps on the mattress on the ground because I am afraid I'll fall. He remains looking like he is internally preoccupied. Denies SI. Review of Systems Review of Systems As per HPI. Yes all other systems are reviewed and are negative and Unobtainable due to mental status Constitutional: Reports as per HPI Eyes: Reports as per HPI Reports as per HPI Cardiovascular: Reports as per HPI Respiratory: Reports as per HPI Gastrointestinal: Reports as per HPI Genitourinary: Reports as per HPI Musculoskeletal: Reports as per HPI Skin/Breast: Reports as per HPI Reports as per HPI Psychiatric: Reports as per HPI Endocrine: Reports as per HPI Hematologic/Lymphatic: Reports as per HPI Allergic/Immunologic: Reports as per HPI Mental Status Exam Mental Status Exam Narrative: Pt behavior is guarded and calm; dressed in casual attire; mood is depressed,hopeless; eye contact appropriate; Speech is normal rate, volume and prosody and not pressured; no psychomotor agitation/retardation present; thought process is organized; delusional; denies any SI/HI/VH. Reports auditory hallucinations. Patient Appearance: Well Grooomed and Appropriate Patient Orientation: Person and Situation Level of Consciousness: Awake and Appropriate Patient Behavior: Guarded and Passive Mood Description: Calm Affect Description: Constricted Patient Cognition Impaired: Yes Ability to Follow Directions: Good Speech Pattern: Clear Diagnostics Vital Signs (24Hr): Vital Signs - 24 hr 04/16/23 20:04 04/16/23 20:05 04/17/23 08:20 Temperature 98.6 F 98.6 F 98.6 F Pulse Rate 115 H 115 H 115 H Respiratory Rate 18 18 Blood Pressure 136/75 136/75 125/69 Pulse Oximetry 96 96 97 Oxygen Delivery Method Room Air Room Air Room Air BMI result Body Mass Index 40.7 Labs 04/12/23 08:45 04/12/23 08:45 Medications Medications Current Medications Acetaminophen (Acetaminophen 325 Mg Tablet) 650 mg PO Q6H PRN PRN Reason: Headache/Pain Mild Scale (1-3) Last Admin: 04/15/23 20:36 Dose: 650 mg Al Hydroxide/Mg Hydroxide (Magnesium Hydrox/Alum Hydrox 30 Ml Oral.Susp) 30 ml PO Q6H PRN PRN Reason: Heartburn/Nausea Benztropine Mesylate (Benztropine Mesylate 1 Mg Tablet) 1 mg PO BID [facility] Last Admin: 04/17/23 08:35 Dose: 1 mg Diphenhydramine HCl (Diphenhydramine Hcl 25 Mg Capsule) 50 mg PO BID PRN PRN Reason: Anxiety Last Admin: 04/14/23 20:39 Dose: 50 mg Haloperidol (Haloperidol 5 Mg Tablet) 5 mg PO Q6H PRN PRN Reason: psychosis Last Admin: 04/08/23 09:46 Dose: 5 mg Haloperidol (Haloperidol 5 Mg Tablet) 10 mg PO BID [facility] Last Admin: 04/17/23 08:35 Dose: 10 mg Lidocaine (Lidocaine 4 % Patch Adh..Patch) 1 patch TRANSDERMA DAILY [facility]; Protocol Last Admin: 04/17/23 08:36 Dose: Not Given [place] Carbonate ([place] Carbonate Er 300 Mg Tablet.Er) 300 mg PO BID [facility] Last Admin: 04/17/23 08:35 Dose: 300 mg Magnesium Hydroxide (Milk Of Magnesia 30 Ml Oral.Susp) 30 ml PO DAILY PRN PRN Reason: Constipation Trazodone HCl (Trazodone Hcl 50 Mg Tablet) 50 mg PO BEDTIME MRX1 PRN PRN Reason: Insomnia Last Admin: 04/16/23 20:40 Dose: 50 mg Allergies Allergies Allergy/AdvReac Type Severity Reaction Status Date / Time Penicillins [PENICILLINS] Allergy Unknown RASH Verified 05/19/21 07:39 Assessment & Plan Assessment & Plan (1) Schizophrenia: Status: Acute Code(s): F20.9 - Schizophrenia, unspecified Plan 03/25: start haldol 5 and benadryl 50 BID. had been on zyprexa, which was apparently too sedating. 03/26: denies any effects or side effects. continue current mgmt. 03/27: Continue current regimen and plans 03/28: Continue current regimen and plans. Make is Benadryl p.r.n. and add Cogentin 1 mg b.i.d. and discontinue Vistaril p.r.n. 03/29: commitment paperwork filed. continue current mgmt for now. T/C increasing haldol dosing and moving toward WONG prior to discharge. 03/30 added clonazepam for anxiety s/s to paranoid delusions. 03/31 continue tx. 04/01 pt agreed to sign CV and continued treatment. 04/02: paranoid delusions continue as well as apparent minimization of AH. increase haldol from 5 BID to 7.5 BID. 04/13 continue same treatment 04/04 continue same treatment 04/05: pt has endorsed AH to staff. c/o restlessness. out of concern for akathisia, benadryl 25 BID added to the cogentin 1 BID pt is already on. sleeping well, though. more active and engaging than last week. per collateral from outpt providers who visited today, not at his baseline. 04/06: Pt continues to report AH- he reports minimal change in frequency but it appears content of voices less paranoid or threatening content. He does appear less paranoia. I do not see evidence of akathisia- no tapping of feet, or need to pace. He has been mostly in bed. He continues to report some anxiety around others. No SI/HI. No aggression towards self or others. d/c benadryl as too sedating during the day. 04/07: in light of pt's expression of feeling constantly over-energized with racing thoughts and AH, will initiate trial of lithium in the event of atypical bipolar diathesis presentation. continue haldol and cogentin for now. pt reports this uncomfortable sensation predates haldol use. if lithium provides no relief, will increase haldol further. 04/08: no change from yesterday. continue lithium trial for several days. +SI, racing thoughts, AH. 04/09: little change; says racing mind/AH a little less, but mostly since he's isolated himself; continue tx plan 04/10: reports no change from several days ago. agreeable to increase haldol from 7.5 BID to 10 BID. 04/11: continue current regimen. research previous regimen of 1.5-2 yrs back which involved WONG, on which he and his brother feel he did better. check labs. 04/12: left message for jake at [facility] for meds Hx. no change in presentation. 04/13: no call-back from jake. spoke with blaise at [phone], who said she would fax medication Hx. no change in presentation. awaiting medication Hx for action. 04/14: Continue current tx plan. 04/15: Pt stated he signed a 3 day d/t not sleeping comfortably in these beds and making my neck hurt . He reports Tylenol being somewhat helpful. Pt states he continues to have auditory hallucinations and feels hopeless about the future. Pt stated, I want to be euthanized. I don't want to keep coming to the hospital. I used to never be like this. The voices in my head told me to hit my mom. The voices plan on driving me crazy. I wish someone could put me down. The voices were put there by someone else; only they can remove it. 04/16: Pt presents guarded today. He reports feeling okay today. Pt stated, my neck is feeling better today. I'm still worried about the voices . Keeping to self. [place] decreased to 300mg PO BID. 04/17: Continue current management and treatment plan. Reason for continued inpatient stay Substantial Risk for: inability to function and rapid decompensation Time Spent With Patient Time: Total time managing care of this patient today ____ minutes.
[2023-04-17 20:02] VITALS: BP 128/80; PULSE 109; RESP 17; TEMP 36.6; O2SAT 95
[2023-04-17] MEDS: traZODone HCL 50 MG TABLET PO (20:29)
--- NOTE | 2023-04-17 23:53 | PC.NURSE ---
Addendum entered by Nasim Collins RN 04/18/23 01:39: Julio reported to this nurse that he was safe on the unit and would not attempt to self harm, he just wants someone to come by and send him to the [facility] so he can just sleep and not have anymore problems. Original Note: Julio reported moderate anxiety and depression. Patient requested that this nurse sign him up for euthanasia. Patient reports that every day feels like torture to him and he would rather be in the other place.(). Patient reports that he always feels like he has electricity flowing through his body and the only way to stop it is to get up and move. He will then walk until his feet begin to hurt. Julio reports that why he sleeps all the time because when he is awake, he needs to constantly move. Reports it is difficult to even watch TV for 15 minutes. At home patient reports smoking marijuana that helps slow things down for an hour or two. Patient continue to report auditory hallucinations. Patient frustrated with life and is showing passive suicidal ideation.
[2023-04-18] MEDS: Acetaminophen 325 MG TABLET 650 MG PO ×3 (06:14→20:16)
--- NOTE | 2023-04-18 06:43 | PC.NURSE ---
on rising R eye lid appears swollen. no drainage noted. pt reports rubbing his eye frequently last evening.
[2023-04-18] MEDS: Benztropine Mesylate 1 MG TABLET PO ×2 (08:22→20:16)
[2023-04-18] MEDS: HaloperidoL 5 MG TABLET 10 MG PO ×2 (08:22→20:16)
[2023-04-18] MEDS: Lithium Carbonate ER 300 MG TABLET.ER PO ×2 (08:22→20:16)
[2023-04-18 09:05] VITALS: BP 124/67; PULSE 83; RESP 20; TEMP 36.6; O2SAT 98
--- NOTE | 2023-04-18 16:07 | HO.PSYCHPN ---
Subjective Subjective Date of Service: 04/18/23 Reason For Visit: Schizophrenia Interim History: Reviewed with RN. Patient reports he is having pain in his legs and neck. Generalized aching in leg muscles. No other complaints. He says he is sleeping well. Still AH. He is having restlessness. He remains internally preoccupied. Denies SI. Review of Systems Review of Systems As per HPI. Yes all other systems are reviewed and are negative and Unobtainable due to mental status Constitutional: Reports as per HPI Eyes: Reports as per HPI Reports as per HPI Cardiovascular: Reports as per HPI Respiratory: Reports as per HPI Gastrointestinal: Reports as per HPI Genitourinary: Reports as per HPI Musculoskeletal: Reports as per HPI Skin/Breast: Reports as per HPI Reports as per HPI Psychiatric: Reports as per HPI Endocrine: Reports as per HPI Hematologic/Lymphatic: Reports as per HPI Allergic/Immunologic: Reports as per HPI Mental Status Exam Mental Status Exam Narrative: Pt behavior is guarded and calm; dressed in casual attire; mood is depressed,hopeless; eye contact appropriate; Speech is normal rate, volume and prosody and not pressured; no psychomotor agitation/retardation present; thought process is organized; delusional; denies any SI/HI/VH. Reports auditory hallucinations. Patient Appearance: Well Grooomed and Appropriate Patient Orientation: Person and Situation Level of Consciousness: Awake and Appropriate Patient Behavior: Guarded and Passive Mood Description: Calm Affect Description: Constricted Patient Cognition Impaired: Yes Ability to Follow Directions: Good Speech Pattern: Clear Diagnostics Vital Signs (24Hr): Vital Signs - 24 hr 04/17/23 20:02 04/18/23 09:05 Temperature 97.9 F 97.8 F Pulse Rate 109 H 83 Respiratory Rate 17 20 Blood Pressure 128/80 124/67 Pulse Oximetry 95 98 Oxygen Delivery Method Room Air Room Air BMI result Body Mass Index 40.7 Labs 04/12/23 08:45 04/12/23 08:45 Medications Medications Current Medications Acetaminophen (Acetaminophen 325 Mg Tablet) 650 mg PO Q6H PRN PRN Reason: Headache/Pain Mild Scale (1-3) Last Admin: 04/18/23 14:58 Dose: 650 mg Al Hydroxide/Mg Hydroxide (Magnesium Hydrox/Alum Hydrox 30 Ml Oral.Susp) 30 ml PO Q6H PRN PRN Reason: Heartburn/Nausea Benztropine Mesylate (Benztropine Mesylate 1 Mg Tablet) 1 mg PO BID [facility] Last Admin: 04/18/23 08:22 Dose: 1 mg Diphenhydramine HCl (Diphenhydramine Hcl 25 Mg Capsule) 50 mg PO BID PRN PRN Reason: Anxiety Last Admin: 04/14/23 20:39 Dose: 50 mg Haloperidol (Haloperidol 5 Mg Tablet) 5 mg PO Q6H PRN PRN Reason: psychosis Last Admin: 04/08/23 09:46 Dose: 5 mg Haloperidol (Haloperidol 5 Mg Tablet) 10 mg PO BID [facility] Last Admin: 04/18/23 08:22 Dose: 10 mg Lidocaine (Lidocaine 4 % Patch Adh..Patch) 1 patch TRANSDERMA DAILY [facility]; Protocol Last Admin: 04/18/23 08:22 Dose: Not Given [place] Carbonate ([place] Carbonate Er 300 Mg Tablet.Er) 300 mg PO BID [facility] Last Admin: 04/18/23 08:22 Dose: 300 mg Magnesium Hydroxide (Milk Of Magnesia 30 Ml Oral.Susp) 30 ml PO DAILY PRN PRN Reason: Constipation Trazodone HCl (Trazodone Hcl 50 Mg Tablet) 50 mg PO BEDTIME MRX1 PRN PRN Reason: Insomnia Last Admin: 04/17/23 20:29 Dose: 50 mg Allergies Allergies Allergy/AdvReac Type Severity Reaction Status Date / Time Penicillins [PENICILLINS] Allergy Unknown RASH Verified 05/19/21 07:39 Assessment & Plan Assessment & Plan (1) Schizophrenia: Status: Acute Code(s): F20.9 - Schizophrenia, unspecified Plan 03/25: start haldol 5 and benadryl 50 BID. had been on zyprexa, which was apparently too sedating. 03/26: denies any effects or side effects. continue current mgmt. 03/27: Continue current regimen and plans 03/28: Continue current regimen and plans. Make is Benadryl p.r.n. and add Cogentin 1 mg b.i.d. and discontinue Vistaril p.r.n. 03/29: commitment paperwork filed. continue current mgmt for now. T/C increasing haldol dosing and moving toward WONG prior to discharge. 03/30 added clonazepam for anxiety s/s to paranoid delusions. 03/31 continue tx. 04/01 pt agreed to sign CV and continued treatment. 04/02: paranoid delusions continue as well as apparent minimization of AH. increase haldol from 5 BID to 7.5 BID. 04/13 continue same treatment 04/04 continue same treatment 04/05: pt has endorsed AH to staff. c/o restlessness. out of concern for akathisia, benadryl 25 BID added to the cogentin 1 BID pt is already on. sleeping well, though. more active and engaging than last week. per collateral from outpt providers who visited today, not at his baseline. 04/06: Pt continues to report AH- he reports minimal change in frequency but it appears content of voices less paranoid or threatening content. He does appear less paranoia. I do not see evidence of akathisia- no tapping of feet, or need to pace. He has been mostly in bed. He continues to report some anxiety around others. No SI/HI. No aggression towards self or others. d/c benadryl as too sedating during the day. 04/07: in light of pt's expression of feeling constantly over-energized with racing thoughts and AH, will initiate trial of lithium in the event of atypical bipolar diathesis presentation. continue haldol and cogentin for now. pt reports this uncomfortable sensation predates haldol use. if lithium provides no relief, will increase haldol further. 04/08: no change from yesterday. continue lithium trial for several days. +SI, racing thoughts, AH. 04/09: little change; says racing mind/AH a little less, but mostly since he's isolated himself; continue tx plan 04/10: reports no change from several days ago. agreeable to increase haldol from 7.5 BID to 10 BID. 04/11: continue current regimen. research previous regimen of 1.5-2 yrs back which involved WONG, on which he and his brother feel he did better. check labs. 04/12: left message for jake at [facility] for meds Hx. no change in presentation. 04/13: no call-back from jake. spoke with blaise at [phone], who said she would fax medication Hx. no change in presentation. awaiting medication Hx for action. 04/14: Continue current tx plan. 04/15: Pt stated he signed a 3 day d/t not sleeping comfortably in these beds and making my neck hurt . He reports Tylenol being somewhat helpful. Pt states he continues to have auditory hallucinations and feels hopeless about the future. Pt stated, I want to be euthanized. I don't want to keep coming to the hospital. I used to never be like this. The voices in my head told me to hit my mom. The voices plan on driving me crazy. I wish someone could put me down. The voices were put there by someone else; only they can remove it. 04/16: Pt presents guarded today. He reports feeling okay today. Pt stated, my neck is feeling better today. I'm still worried about the voices . Keeping to self. [place] decreased to 300mg PO BID. 04/17: Continue current management and treatment plan. 04/18: Consider Propranolol for possible akathisia. Reason for continued inpatient stay Substantial Risk for: inability to function and rapid decompensation Time Spent With Patient Time: Total time managing care of this patient today ____ minutes.
[2023-04-18 20:10] VITALS: BP 141/83; PULSE 137; RESP 20; TEMP 36.6; O2SAT 98
[2023-04-18] MEDS: traZODone HCL 50 MG TABLET PO (20:16)
[2023-04-18] MEDS: diphenhydrAMINE HCL 25 MG CAPSULE 50 MG PO (20:16)
[2023-04-19] MEDS: diphenhydrAMINE HCL 25 MG CAPSULE 50 MG PO (00:27)
--- NOTE | 2023-04-19 01:14 | PC.NURSE ---
Willam/o stiff muscles and feeling like his muscles are cramping patient given Tylenol and Benadryl with HS medications. patient with continues c/o cramping muscles. I keep telling everyone and all they do is give me meds and meds and meds. I told them I have to get out of here it's not good for me to be here any more. I need to go. tell them that they have to discharge me by tomorrow or something really bad is going to happen. I'm just gonna sit here and start screaming then you guys will do something to help me a 1 time order for 50mg of Benadryl was obtained and given at 0025. patient assisted back to his room at 0125. continue to monitor for changes, monitor for safety, continue Plan of Care
[2023-04-19] MEDS: Cyclobenzaprine HCl 10 MG TABLET PO (01:50)
[2023-04-19] MEDS: Acetaminophen 325 MG TABLET 650 MG PO ×2 (03:30→21:11)
[2023-04-19] MEDS: traZODone HCL 50 MG TABLET PO ×2 (03:30→21:12)
[2023-04-19 07:20] VITALS: BP 131/79; PULSE 103; RESP 16; TEMP 36.9; O2SAT 93
[2023-04-19] MEDS: Lithium Carbonate ER 300 MG TABLET.ER PO ×2 (08:37→21:12)
[2023-04-19] MEDS: Benztropine Mesylate 1 MG TABLET PO (08:37)
[2023-04-19] MEDS: HaloperidoL 5 MG TABLET 10 MG PO (08:37)
--- NOTE | 2023-04-19 16:39 | HO.PSYCHPN ---
Subjective Subjective Date of Service: 04/19/23 Reason For Visit: Schizophrenia Interim History: ambulating the harper. provides confusing and self-contradictory statements about his usual level of pacing/physical activity. agrees to DC haldol and restart zyprexa. feels very uncomfortable, that medication is not working, that he would like discharge. per staff, +AH. no groups. +meds. refused lidocaine. mother visited. asking to be euthanized. agitated, labile. 3-day up tomorrow. Mental Status Exam Mental Status Exam Narrative: Pt is alert and oriented; behavior is cooperative and calm; dressed in casual attire; eye contact appropriate; Speech is nml amount, loudness, rate, and prosody and not pressured; no psychomotor agitation/retardation present; thought process is organized and goal directed; Thought content is on psychic distress, with no delusions or paranoia evident; no HI/VH expressed, +SI. c/o racing thoughts and AH. Patients insight and judgment are impaired. Diagnostics Vital Signs (24Hr): Vital Signs - 24 hr 04/18/23 20:10 04/19/23 07:20 Temperature 97.9 F 98.4 F Pulse Rate 137 H 103 H Respiratory Rate 20 16 Blood Pressure 141/83 H 131/79 Pulse Oximetry 98 93 Oxygen Delivery Method Room Air Room Air BMI result Body Mass Index 40.7 Labs 04/12/23 08:45 04/12/23 08:45 Medications Medications Current Medications Acetaminophen (Acetaminophen 325 Mg Tablet) 650 mg PO Q6H PRN PRN Reason: Headache/Pain Mild Scale (1-3) Last Admin: 04/19/23 03:30 Dose: 650 mg Al Hydroxide/Mg Hydroxide (Magnesium Hydrox/Alum Hydrox 30 Ml Oral.Susp) 30 ml PO Q6H PRN PRN Reason: Heartburn/Nausea Diphenhydramine HCl (Diphenhydramine Hcl 25 Mg Capsule) 50 mg PO BID PRN PRN Reason: Anxiety Last Admin: 04/19/23 00:27 Dose: 50 mg Lidocaine (Lidocaine 4 % Patch Adh..Patch) 1 patch TRANSDERMA DAILY [facility]; Protocol Last Admin: 04/19/23 08:39 Dose: Not Given [place] Carbonate ([place] Carbonate Er 300 Mg Tablet.Er) 300 mg PO BID [facility] Last Admin: 04/19/23 08:37 Dose: 300 mg Magnesium Hydroxide (Milk Of Magnesia 30 Ml Oral.Susp) 30 ml PO DAILY PRN PRN Reason: Constipation Olanzapine (Olanzapine 10 Mg Tablet) 20 mg PO BEDTIME [facility] Olanzapine (Olanzapine 5 Mg Tablet) 5 mg PO Q4H PRN PRN Reason: agitation Trazodone HCl (Trazodone Hcl 50 Mg Tablet) 50 mg PO BEDTIME MRX1 PRN PRN Reason: Insomnia Last Admin: 04/19/23 03:30 Dose: 50 mg Allergies Allergies Allergy/AdvReac Type Severity Reaction Status Date / Time Penicillins [PENICILLINS] Allergy Unknown RASH Verified 05/19/21 07:39 Assessment & Plan Assessment & Plan (1) Schizophrenia: Status: Acute Code(s): F20.9 - Schizophrenia, unspecified Plan 03/25: start haldol 5 and benadryl 50 BID. had been on zyprexa, which was apparently too sedating. 03/26: denies any effects or side effects. continue current mgmt. 03/27: Continue current regimen and plans 03/28: Continue current regimen and plans. Make is Benadryl p.r.n. and add Cogentin 1 mg b.i.d. and discontinue Vistaril p.r.n. 03/29: commitment paperwork filed. continue current mgmt for now. T/C increasing haldol dosing and moving toward WONG prior to discharge. 03/30 added clonazepam for anxiety s/s to paranoid delusions. 03/31 continue tx. 04/01 pt agreed to sign CV and continued treatment. 04/02: paranoid delusions continue as well as apparent minimization of AH. increase haldol from 5 BID to 7.5 BID. 04/13 continue same treatment 04/04 continue same treatment 04/05: pt has endorsed AH to staff. c/o restlessness. out of concern for akathisia, benadryl 25 BID added to the cogentin 1 BID pt is already on. sleeping well, though. more active and engaging than last week. per collateral from outpt providers who visited today, not at his baseline. 04/06: Pt continues to report AH- he reports minimal change in frequency but it appears content of voices less paranoid or threatening content. He does appear less paranoia. I do not see evidence of akathisia- no tapping of feet, or need to pace. He has been mostly in bed. He continues to report some anxiety around others. No SI/HI. No aggression towards self or others. d/c benadryl as too sedating during the day. 04/07: in light of pt's expression of feeling constantly over-energized with racing thoughts and AH, will initiate trial of lithium in the event of atypical bipolar diathesis presentation. continue haldol and cogentin for now. pt reports this uncomfortable sensation predates haldol use. if lithium provides no relief, will increase haldol further. 04/08: no change from yesterday. continue lithium trial for several days. +SI, racing thoughts, AH. 04/09: little change; says racing mind/AH a little less, but mostly since he's isolated himself; continue tx plan 04/10: reports no change from several days ago. agreeable to increase haldol from 7.5 BID to 10 BID. 04/11: continue current regimen. research previous regimen of 1.5-2 yrs back which involved WONG, on which he and his brother feel he did better. check labs. 04/12: left message for jake at [facility] for meds Hx. no change in presentation. 04/13: no call-back from jake. spoke with blaise at [phone], who said she would fax medication Hx. no change in presentation. awaiting medication Hx for action. 04/14: Continue current tx plan. 04/15: Pt stated he signed a 3 day d/t not sleeping comfortably in these beds and making my neck hurt . He reports Tylenol being somewhat helpful. Pt states he continues to have auditory hallucinations and feels hopeless about the future. Pt stated, I want to be euthanized. I don't want to keep coming to the hospital. I used to never be like this. The voices in my head told me to hit my mom. The voices plan on driving me crazy. I wish someone could put me down. The voices were put there by someone else; only they can remove it. 04/16: Pt presents guarded today. He reports feeling okay today. Pt stated, my neck is feeling better today. I'm still worried about the voices . Keeping to self. [place] decreased to 300mg PO BID. 04/17: Continue current management and treatment plan. 04/18: Consider Propranolol for possible akathisia. 04/19: DC haldol/cogentin and return to olanzapine 20 QHS regimen. 3-day notice up tomorrow. states he would like to but denies intent or plan. DC lithium tomorrow as unhelpful. Reason for continued inpatient stay Substantial Risk for: harm to self, harm to others, inability to function and rapid decompensation Time Spent With Patient Time: Total time managing care of this patient today __25__ minutes.
[2023-04-19 18:00] VITALS: BP 145/79; PULSE 115; RESP 20; TEMP 36.6; O2SAT 100
[2023-04-19] MEDS: OLANZapine 10 MG TABLET 20 MG PO (21:12)
[2023-04-20] MEDS: Lithium Carbonate ER 300 MG TABLET.ER PO ×2 (09:01→20:57)
[2023-04-20 09:43] VITALS: BP 128/80; PULSE 110; RESP 18; TEMP 36.2; O2SAT 98
--- NOTE | 2023-04-20 17:12 | P.PNPSI_ITS ---
Subjective Subjective Date of Service: 04/20/23 Reason For Visit: Schizophrenia Interim History: denies any side effects with switch back to olanzapine. says maybe he is sleeping more. agrees to retract his 3-day notice. he is hoping for DC next wednesday. minimizing any Sx, says his mood is good, denies SI/HI. says of EFRA, it's good. per staff, denies dep/anx. +ADLs. labile. slept 5 hours. Mental Status Exam Mental Status Exam Narrative: Pt is alert and oriented; behavior is cooperative and calm; dressed in casual attire; eye contact appropriate; Speech is nml amount, loudness, rate, and prosody and not pressured; no psychomotor agitation/retardation present; thought process is organized and goal directed; Thought content is on discharge, with no delusions or paranoia evident; denies SI/HI. of EFRA says, it's good. Patients insight and judgment are impaired. Diagnostics Vital Signs (24Hr): Vital Signs - 24 hr 04/19/23 18:00 04/20/23 09:43 Temperature 97.9 F 97.1 F Pulse Rate 115 H 110 H Respiratory Rate 20 18 Blood Pressure 145/79 H 128/80 Pulse Oximetry 100 98 Oxygen Delivery Method Room Air Room Air BMI result Body Mass Index 40.7 Labs 04/12/23 08:45 04/12/23 08:45 Medications Medications Current Medications Acetaminophen (Acetaminophen 325 Mg Tablet) 650 mg PO Q6H PRN PRN Reason: Headache/Pain Mild Scale (1-3) Last Admin: 04/19/23 21:11 Dose: 650 mg Al Hydroxide/Mg Hydroxide (Magnesium Hydrox/Alum Hydrox 30 Ml Oral.Susp) 30 ml PO Q6H PRN PRN Reason: Heartburn/Nausea Diphenhydramine HCl (Diphenhydramine Hcl 25 Mg Capsule) 50 mg PO BID PRN PRN Reason: Anxiety Last Admin: 04/19/23 00:27 Dose: 50 mg Lidocaine (Lidocaine 4 % Patch Adh..Patch) 1 patch TRANSDERMA DAILY [facility]; Protocol Last Admin: 04/20/23 09:00 Dose: Not Given [place] Carbonate ([place] Carbonate Er 300 Mg Tablet.Er) 300 mg PO BID [facility] Last Admin: 04/20/23 09:01 Dose: 300 mg Magnesium Hydroxide (Milk Of Magnesia 30 Ml Oral.Susp) 30 ml PO DAILY PRN PRN Reason: Constipation Olanzapine (Olanzapine 10 Mg Tablet) 20 mg PO BEDTIME [facility] Last Admin: 04/19/23 21:12 Dose: 20 mg Olanzapine (Olanzapine 5 Mg Tablet) 5 mg PO Q4H PRN PRN Reason: agitation Trazodone HCl (Trazodone Hcl 50 Mg Tablet) 50 mg PO BEDTIME MRX1 PRN PRN Reason: Insomnia Last Admin: 04/19/23 21:12 Dose: 50 mg Allergies Allergies Allergy/AdvReac Type Severity Reaction Status Date / Time Penicillins [PENICILLINS] Allergy Unknown RASH Verified 05/19/21 07:39 Assessment & Plan Assessment & Plan (1) Schizophrenia: Status: Acute Code(s): F20.9 - Schizophrenia, unspecified Plan 03/25: start haldol 5 and benadryl 50 BID. had been on zyprexa, which was apparently too sedating. 03/26: denies any effects or side effects. continue current mgmt. 03/27: Continue current regimen and plans 03/28: Continue current regimen and plans. Make is Benadryl p.r.n. and add Cogentin 1 mg b.i.d. and discontinue Vistaril p.r.n. 03/29: commitment paperwork filed. continue current mgmt for now. T/C increasing haldol dosing and moving toward WONG prior to discharge. 03/30 added clonazepam for anxiety s/s to paranoid delusions. 03/31 continue tx. 04/01 pt agreed to sign CV and continued treatment. 04/02: paranoid delusions continue as well as apparent minimization of AH. increase haldol from 5 BID to 7.5 BID. 04/13 continue same treatment 04/04 continue same treatment 04/05: pt has endorsed AH to staff. c/o restlessness. out of concern for akathisia, benadryl 25 BID added to the cogentin 1 BID pt is already on. sleeping well, though. more active and engaging than last week. per collateral from outpt providers who visited today, not at his baseline. 04/06: Pt continues to report AH- he reports minimal change in frequency but it appears content of voices less paranoid or threatening content. He does appear less paranoia. I do not see evidence of akathisia- no tapping of feet, or need to pace. He has been mostly in bed. He continues to report some anxiety around others. No SI/HI. No aggression towards self or others. d/c benadryl as too sedating during the day. 04/07: in light of pt's expression of feeling constantly over-energized with racing thoughts and AH, will initiate trial of lithium in the event of atypical bipolar diathesis presentation. continue haldol and cogentin for now. pt reports this uncomfortable sensation predates haldol use. if lithium provides no relief, will increase haldol further. 04/08: no change from yesterday. continue lithium trial for several days. +SI, racing thoughts, AH. 04/09: little change; says racing mind/AH a little less, but mostly since he's isolated himself; continue tx plan 04/10: reports no change from several days ago. agreeable to increase haldol from 7.5 BID to 10 BID. 04/11: continue current regimen. research previous regimen of 1.5-2 yrs back which involved WONG, on which he and his brother feel he did better. check labs. 04/12: left message for jake at [facility] for meds Hx. no change in presentation. 04/13: no call-back from jake. spoke with blaise at [phone], who said she would fax medication Hx. no change in presentation. awaiting medication Hx for action. 04/14: Continue current tx plan. 04/15: Pt stated he signed a 3 day d/t not sleeping comfortably in these beds and making my neck hurt . He reports Tylenol being somewhat helpful. Pt states he continues to have auditory hallucinations and feels hopeless about the future. Pt stated, I want to be euthanized. I don't want to keep coming to the hospital. I used to never be like this. The voices in my head told me to hit my mom. The voices plan on driving me crazy. I wish someone could put me down. The voices were put there by someone else; only they can remove it. 04/16: Pt presents guarded today. He reports feeling okay today. Pt stated, my neck is feeling better today. I'm still worried about the voices . Keeping to self. [place] decreased to 300mg PO BID. 04/17: Continue current management and treatment plan. 04/18: Consider Propranolol for possible akathisia. 04/19: DC haldol/cogentin and return to olanzapine 20 QHS regimen. 3-day notice up tomorrow. states he would like to but denies intent or plan. DC lithium tomorrow as unhelpful. 04/20: denies SI/HI. of AVH says it's good. appears to be minimizing Sx in bid for discharge. retracts 3-day notice. DC lithium. planning to stabilize on new regimen through wednesday. Reason for continued inpatient stay Substantial Risk for: harm to self, inability to function and rapid decompensation Time Spent With Patient Time: Total time managing care of this patient today __25__ minutes.
[2023-04-20 20:20] VITALS: BP 136/64; PULSE 107; RESP 18; TEMP 36.7; O2SAT 99
[2023-04-20] MEDS: OLANZapine 10 MG TABLET 20 MG PO (20:57)
[2023-04-20] MEDS: Acetaminophen 325 MG TABLET 650 MG PO (20:57)
[2023-04-20] MEDS: diphenhydrAMINE HCL 25 MG CAPSULE 50 MG PO (20:58)
[2023-04-21 09:01] VITALS: BP 118/65; PULSE 88; TEMP 36.1; O2SAT 97
[2023-04-21] MEDS: Lithium Carbonate ER 300 MG TABLET.ER PO ×2 (09:13→21:41)
--- NOTE | 2023-04-21 09:34 | P.PNPSI_ITS ---
Subjective Subjective Date of Service: 04/21/23 Reason For Visit: Schizophrenia Interim History: met with patient; discussed with team; reviewed notes No change in presentation. Patient reports he is doing fine having switched back to olanzapine. No complaints or requests. Talking about discharging Wednesday; acknowledge that [facility] is coming to visit on Wednesday. Mental Status Exam Mental Status Exam Narrative: Pt is alert and oriented; behavior is cooperative and calm; dressed in casual attire; eye contact appropriate; Speech is nml amount, loudness, rate, and prosody and not pressured; no psychomotor agitation/retardation present; thought process is organized and goal directed; Thought content is on discharge, with no delusions or paranoia evident; denies SI/HI. Unclear regarding AVH Patients insight and judgment are impaired. Diagnostics Vital Signs (24Hr): Vital Signs - 24 hr 04/20/23 09:43 04/20/23 20:20 04/21/23 09:01 Temperature 97.1 F 98.0 F 97.0 F Pulse Rate 110 H 107 H 88 Respiratory Rate 18 18 Blood Pressure 128/80 136/64 118/65 Pulse Oximetry 98 99 97 Oxygen Delivery Method Room Air Room Air Room Air BMI result Body Mass Index 40.7 Labs 04/12/23 08:45 04/12/23 08:45 Medications Medications Current Medications Acetaminophen (Acetaminophen 325 Mg Tablet) 650 mg PO Q6H PRN PRN Reason: Headache/Pain Mild Scale (1-3) Last Admin: 04/20/23 20:57 Dose: 650 mg Al Hydroxide/Mg Hydroxide (Magnesium Hydrox/Alum Hydrox 30 Ml Oral.Susp) 30 ml PO Q6H PRN PRN Reason: Heartburn/Nausea Diphenhydramine HCl (Diphenhydramine Hcl 25 Mg Capsule) 50 mg PO BID PRN PRN Reason: Anxiety Last Admin: 04/20/23 20:58 Dose: 50 mg Lidocaine (Lidocaine 4 % Patch Adh..Patch) 1 patch TRANSDERMA DAILY KYLE; Protocol Last Admin: 04/20/23 09:00 Dose: Not Given [place] Carbonate ([place] Carbonate Er 300 Mg Tablet.Er) 300 mg PO BID KYLE Last Admin: 04/21/23 09:13 Dose: 300 mg Magnesium Hydroxide (Milk Of Magnesia 30 Ml Oral.Susp) 30 ml PO DAILY PRN PRN Reason: Constipation Olanzapine (Olanzapine 10 Mg Tablet) 20 mg PO BEDTIME KYLE Last Admin: 04/20/23 20:57 Dose: 20 mg Olanzapine (Olanzapine 5 Mg Tablet) 5 mg PO Q4H PRN PRN Reason: agitation Trazodone HCl (Trazodone Hcl 50 Mg Tablet) 50 mg PO BEDTIME MRX1 PRN PRN Reason: Insomnia Last Admin: 04/19/23 21:12 Dose: 50 mg Allergies Allergies Allergy/AdvReac Type Severity Reaction Status Date / Time Penicillins [PENICILLINS] Allergy Unknown RASH Verified 05/19/21 07:39 Assessment & Plan Assessment & Plan (1) Schizophrenia: Status: Acute Code(s): F20.9 - Schizophrenia, unspecified Plan 03/25: start haldol 5 and benadryl 50 BID. had been on zyprexa, which was apparently too sedating. 03/26: denies any effects or side effects. continue current mgmt. 03/27: Continue current regimen and plans 03/28: Continue current regimen and plans. Make is Benadryl p.r.n. and add Cogentin 1 mg b.i.d. and discontinue Vistaril p.r.n. 03/29: commitment paperwork filed. continue current mgmt for now. T/C increasing haldol dosing and moving toward WONG prior to discharge. 03/30 added clonazepam for anxiety s/s to paranoid delusions. 03/31 continue tx. 04/01 pt agreed to sign CV and continued treatment. 04/02: paranoid delusions continue as well as apparent minimization of AH. increase haldol from 5 BID to 7.5 BID. 04/13 continue same treatment 04/04 continue same treatment 04/05: pt has endorsed AH to staff. c/o restlessness. out of concern for akathisia, benadryl 25 BID added to the cogentin 1 BID pt is already on. sleeping well, though. more active and engaging than last week. per collateral from outpt providers who visited today, not at his baseline. 04/06: Pt continues to report AH- he reports minimal change in frequency but it appears content of voices less paranoid or threatening content. He does appear less paranoia. I do not see evidence of akathisia- no tapping of feet, or need to pace. He has been mostly in bed. He continues to report some anxiety around others. No SI/HI. No aggression towards self or others. d/c benadryl as too sedating during the day. 04/07: in light of pt's expression of feeling constantly over-energized with racing thoughts and AH, will initiate trial of lithium in the event of atypical bipolar diathesis presentation. continue haldol and cogentin for now. pt reports this uncomfortable sensation predates haldol use. if lithium provides no relief, will increase haldol further. 04/08: no change from yesterday. continue lithium trial for several days. +SI, racing thoughts, AH. 04/09: little change; says racing mind/AH a little less, but mostly since he's isolated himself; continue tx plan 04/10: reports no change from several days ago. agreeable to increase haldol from 7.5 BID to 10 BID. 04/11: continue current regimen. research previous regimen of 1.5-2 yrs back which involved WONG, on which he and his brother feel he did better. check labs. 04/12: left message for jake at [facility] for meds Hx. no change in presentation. 04/13: no call-back from jake. spoke with blaise at [phone], who said she would fax medication Hx. no change in presentation. awaiting medication Hx for action. 04/14: Continue current tx plan. 04/15: Pt stated he signed a 3 day d/t not sleeping comfortably in these beds and making my neck hurt . He reports Tylenol being somewhat helpful. Pt states he continues to have auditory hallucinations and feels hopeless about the future. Pt stated, I want to be euthanized. I don't want to keep coming to the hospital. I used to never be like this. The voices in my head told me to hit my mom. The voices plan on driving me crazy. I wish someone could put me down. The voices were put there by someone else; only they can remove it. 04/16: Pt presents guarded today. He reports feeling okay today. Pt stated, my neck is feeling better today. I'm still worried about the voices . Keeping to self. [place] decreased to 300mg PO BID. 04/17: Continue current management and treatment plan. 04/18: Consider Propranolol for possible akathisia. 04/19: DC haldol/cogentin and return to olanzapine 20 QHS regimen. 3-day notice up tomorrow. states he would like to but denies intent or plan. DC lithium tomorrow as unhelpful. 04/20: denies SI/HI. of AV says it's good. appears to be minimizing Sx in bid for discharge. retracts 3-day notice. DC lithium. planning to stabilize on new regimen through wednesday. 04/21 continue current treatment plan Patient educated on: diagnosis Informed Consent: further education needed Reason for continued inpatient stay Substantial Risk for: rapid decompensation Time Spent With Patient Time: Total time managing care of this patient today ____ minutes.
[2023-04-21 18:00] VITALS: BP 113/67; PULSE 123; RESP 18; TEMP 36.6; O2SAT 96
[2023-04-21] MEDS: diphenhydrAMINE HCL 25 MG CAPSULE 50 MG PO (21:40)
[2023-04-21] MEDS: OLANZapine 10 MG TABLET 20 MG PO (21:41)
[2023-04-21] MEDS: traZODone HCL 50 MG TABLET PO (21:41)
--- NOTE | 2023-04-22 08:13 | HO.PSYCHPN ---
Subjective Subjective Date of Service: 04/22/23 Reason For Visit: Schizophrenia Interim History: met with patient; discussed with team Patient lying in bed, awake and alert; says he is good but little else. Patient denies any AH; says muscle stiffness (from med side-effect) resolved. Slept through the night. Mental Status Exam Mental Status Exam Narrative: Pt is alert and oriented; behavior is cooperative and calm; dressed in casual attire; eye contact appropriate; Speech is nml amount, loudness, rate, and prosody and not pressured; no psychomotor agitation/retardation present; thought process is organized and goal directed; Thought content is on discharge, with no delusions or paranoia evident; denies SI/HI. Denies AVH though seems possibly internally preoccupied Patients insight and judgment are impaired. Diagnostics Vital Signs (24Hr): Vital Signs - 24 hr 04/21/23 09:01 04/21/23 18:00 Temperature 97.0 F 97.9 F Pulse Rate 88 123 H Respiratory Rate 18 Blood Pressure 118/65 113/67 Pulse Oximetry 97 96 Oxygen Delivery Method Room Air Room Air BMI result Body Mass Index 40.7 Labs 04/12/23 08:45 04/12/23 08:45 Medications Medications Current Medications Acetaminophen (Acetaminophen 325 Mg Tablet) 650 mg PO Q6H PRN PRN Reason: Headache/Pain Mild Scale (1-3) Last Admin: 04/20/23 20:57 Dose: 650 mg Al Hydroxide/Mg Hydroxide (Magnesium Hydrox/Alum Hydrox 30 Ml Oral.Susp) 30 ml PO Q6H PRN PRN Reason: Heartburn/Nausea Diphenhydramine HCl (Diphenhydramine Hcl 25 Mg Capsule) 50 mg PO BID PRN PRN Reason: Anxiety Last Admin: 04/21/23 21:40 Dose: 50 mg Lidocaine (Lidocaine 4 % Patch Adh..Patch) 1 patch TRANSDERMA DAILY KYLE; Protocol Last Admin: 04/21/23 12:41 Dose: Not Given [place] Carbonate ([place] Carbonate Er 300 Mg Tablet.Er) 300 mg PO BID KYLE Last Admin: 04/21/23 21:41 Dose: 300 mg Magnesium Hydroxide (Milk Of Magnesia 30 Ml Oral.Susp) 30 ml PO DAILY PRN PRN Reason: Constipation Olanzapine (Olanzapine 10 Mg Tablet) 20 mg PO BEDTIME KYLE Last Admin: 11/22/23 21:41 Dose: 20 mg Olanzapine (Olanzapine 5 Mg Tablet) 5 mg PO Q4H PRN PRN Reason: agitation Trazodone HCl (Trazodone Hcl 50 Mg Tablet) 50 mg PO BEDTIME MRX1 PRN PRN Reason: Insomnia Last Admin: 04/21/23 21:41 Dose: 50 mg Allergies Allergies Allergy/AdvReac Type Severity Reaction Status Date / Time Penicillins [PENICILLINS] Allergy Unknown RASH Verified 05/19/21 07:39 Assessment & Plan Assessment & Plan (1) Schizophrenia: Status: Acute Code(s): F20.9 - Schizophrenia, unspecified Plan 03/25: start haldol 5 and benadryl 50 BID. had been on zyprexa, which was apparently too sedating. 03/26: denies any effects or side effects. continue current mgmt. 03/27: Continue current regimen and plans 03/28: Continue current regimen and plans. Make is Benadryl p.r.n. and add Cogentin 1 mg b.i.d. and discontinue Vistaril p.r.n. 03/29: commitment paperwork filed. continue current mgmt for now. T/C increasing haldol dosing and moving toward WONG prior to discharge. 03/30 added clonazepam for anxiety s/s to paranoid delusions. 03/31 continue tx. 04/01 pt agreed to sign CV and continued treatment. 04/02: paranoid delusions continue as well as apparent minimization of AH. increase haldol from 5 BID to 7.5 BID. 04/13 continue same treatment 04/04 continue same treatment 04/05: pt has endorsed AH to staff. c/o restlessness. out of concern for akathisia, benadryl 25 BID added to the cogentin 1 BID pt is already on. sleeping well, though. more active and engaging than last week. per collateral from outpt providers who visited today, not at his baseline. 04/06: Pt continues to report AH- he reports minimal change in frequency but it appears content of voices less paranoid or threatening content. He does appear less paranoia. I do not see evidence of akathisia- no tapping of feet, or need to pace. He has been mostly in bed. He continues to report some anxiety around others. No SI/HI. No aggression towards self or others. d/c benadryl as too sedating during the day. 04/07: in light of pt's expression of feeling constantly over-energized with racing thoughts and AH, will initiate trial of lithium in the event of atypical bipolar diathesis presentation. continue haldol and cogentin for now. pt reports this uncomfortable sensation predates haldol use. if lithium provides no relief, will increase haldol further. 04/08: no change from yesterday. continue lithium trial for several days. +SI, racing thoughts, AH. 04/09: little change; says racing mind/AH a little less, but mostly since he's isolated himself; continue tx plan 04/10: reports no change from several days ago. agreeable to increase haldol from 7.5 BID to 10 BID. 04/11: continue current regimen. research previous regimen of 1.5-2 yrs back which involved WONG, on which he and his brother feel he did better. check labs. 04/12: left message for jake at [facility] for meds Hx. no change in presentation. 04/13: no call-back from jake. spoke with blaise at [phone], who said she would fax medication Hx. no change in presentation. awaiting medication Hx for action. 04/14: Continue current tx plan. 04/15: Pt stated he signed a 3 day d/t not sleeping comfortably in these beds and making my neck hurt . He reports Tylenol being somewhat helpful. Pt states he continues to have auditory hallucinations and feels hopeless about the future. Pt stated, I want to be euthanized. I don't want to keep coming to the hospital. I used to never be like this. The voices in my head told me to hit my mom. The voices plan on driving me crazy. I wish someone could put me down. The voices were put there by someone else; only they can remove it. 04/16: Pt presents guarded today. He reports feeling okay today. Pt stated, my neck is feeling better today. I'm still worried about the voices . Keeping to self. [place] decreased to 300mg PO BID. 04/17: Continue current management and treatment plan. 04/18: Consider Propranolol for possible akathisia. 04/19: DC haldol/cogentin and return to olanzapine 20 QHS regimen. 3-day notice up tomorrow. states he would like to but denies intent or plan. DC lithium tomorrow as unhelpful. 04/20: denies SI/HI. of AV says it's good. appears to be minimizing Sx in bid for discharge. retracts 3-day notice. DC lithium. planning to stabilize on new regimen through wednesday. 04/21 continue current treatment plan 04/22: Same presentation; continue current treatment plan Patient educated on: diagnosis and medication risk/benefits Informed Consent: further education needed Reason for continued inpatient stay Substantial Risk for: rapid decompensation Time Spent With Patient Time: Total time managing care of this patient today ____ minutes.
[2023-04-22 08:15] VITALS: BP 105/53; PULSE 96; RESP 20; TEMP 36.4; O2SAT 93
[2023-04-22] MEDS: Lithium Carbonate ER 300 MG TABLET.ER PO ×2 (08:20→22:23)
[2023-04-22 13:52] VITALS: BMI 41.0
[2023-04-22 20:23] VITALS: BP 133/59; PULSE 131; RESP 20; TEMP 36.6; O2SAT 97
[2023-04-22] MEDS: traZODone HCL 50 MG TABLET PO (22:23)
[2023-04-22] MEDS: diphenhydrAMINE HCL 25 MG CAPSULE 50 MG PO (22:23)
[2023-04-22] MEDS: OLANZapine 10 MG TABLET 20 MG PO (22:23)
[2023-04-23 07:35] VITALS: BP 105/55; PULSE 91; RESP 20; TEMP 36.9; O2SAT 95
[2023-04-23] MEDS: Lithium Carbonate ER 300 MG TABLET.ER PO ×2 (08:25→22:24)
--- NOTE | 2023-04-23 08:53 | P.PNPSI_ITS ---
Subjective Subjective Date of Service: 04/23/23 Reason For Visit: Schizophrenia Subjective Notes: Conditional Voluntary Interim History: Pt in bed. He reports less voices but continues to report hear them. He denies SI/HI. He reports feeling tired this morning and wanting to sleep longer. Per nursing, pt slept through the night. More visible. He did ask RN for medication to stop erections, did not elaborate Diagnostics Vital Signs (24Hr): Vital Signs - 24 hr 04/22/23 20:23 04/23/23 07:35 Temperature 97.9 F 98.4 F Pulse Rate 131 H 91 Respiratory Rate 20 20 Blood Pressure 133/59 L 105/55 L Pulse Oximetry 97 95 Oxygen Delivery Method Room Air Room Air BMI result Body Mass Index 41.0 Labs 04/12/23 08:45 04/12/23 08:45 Medications Medications Current Medications Acetaminophen (Acetaminophen 325 Mg Tablet) 650 mg PO Q6H PRN PRN Reason: Headache/Pain Mild Scale (1-3) Last Admin: 04/20/23 20:57 Dose: 650 mg Al Hydroxide/Mg Hydroxide (Magnesium Hydrox/Alum Hydrox 30 Ml Oral.Susp) 30 ml PO Q6H PRN PRN Reason: Heartburn/Nausea Diphenhydramine HCl (Diphenhydramine Hcl 25 Mg Capsule) 50 mg PO BID PRN PRN Reason: Anxiety Last Admin: 04/22/23 22:23 Dose: 50 mg [place] Carbonate ([place] Carbonate Er 300 Mg Tablet.Er) 300 mg PO BID KYLE Last Admin: 04/23/23 08:25 Dose: 300 mg Magnesium Hydroxide (Milk Of Magnesia 30 Ml Oral.Susp) 30 ml PO DAILY PRN PRN Reason: Constipation Olanzapine (Olanzapine 10 Mg Tablet) 20 mg PO BEDTIME KYLE Last Admin: 04/22/23 22:23 Dose: 20 mg Olanzapine (Olanzapine 5 Mg Tablet) 5 mg PO Q4H PRN PRN Reason: agitation Trazodone HCl (Trazodone Hcl 50 Mg Tablet) 50 mg PO BEDTIME MRX1 PRN PRN Reason: Insomnia Last Admin: 04/22/23 22:23 Dose: 50 mg Allergies Allergies Allergy/AdvReac Type Severity Reaction Status Date / Time Penicillins [PENICILLINS] Allergy Unknown RASH Verified 05/19/21 07:39 Assessment & Plan Assessment & Plan (1) Schizophrenia: Status: Acute Code(s): F20.9 - Schizophrenia, unspecified Plan 03/25: start haldol 5 and benadryl 50 BID. had been on zyprexa, which was apparently too sedating. 03/26: denies any effects or side effects. continue current mgmt. 03/27: Continue current regimen and plans 03/28: Continue current regimen and plans. Make is Benadryl p.r.n. and add Cogentin 1 mg b.i.d. and discontinue Vistaril p.r.n. 03/29: commitment paperwork filed. continue current mgmt for now. T/C increasing haldol dosing and moving toward WONG prior to discharge. 03/30 added clonazepam for anxiety s/s to paranoid delusions. 03/31 continue tx. 04/01 pt agreed to sign CV and continued treatment. 04/02: paranoid delusions continue as well as apparent minimization of AH. increase haldol from 5 BID to 7.5 BID. 04/13 continue same treatment 04/04 continue same treatment 04/05: pt has endorsed AH to staff. c/o restlessness. out of concern for akathisia, benadryl 25 BID added to the cogentin 1 BID pt is already on. sleeping well, though. more active and engaging than last week. per collateral from outpt providers who visited today, not at his baseline. 04/06: Pt continues to report AH- he reports minimal change in frequency but it appears content of voices less paranoid or threatening content. He does appear less paranoia. I do not see evidence of akathisia- no tapping of feet, or need to pace. He has been mostly in bed. He continues to report some anxiety around others. No SI/HI. No aggression towards self or others. d/c benadryl as too sedating during the day. 04/07: in light of pt's expression of feeling constantly over-energized with racing thoughts and AH, will initiate trial of lithium in the event of atypical bipolar diathesis presentation. continue haldol and cogentin for now. pt reports this uncomfortable sensation predates haldol use. if lithium provides no relief, will increase haldol further. 04/08: no change from yesterday. continue lithium trial for several days. +SI, racing thoughts, AH. 04/09: little change; says racing mind/AH a little less, but mostly since he's isolated himself; continue tx plan 04/10: reports no change from several days ago. agreeable to increase haldol from 7.5 BID to 10 BID. 04/11: continue current regimen. research previous regimen of 1.5-2 yrs back which involved WONG, on which he and his brother feel he did better. check labs. 04/12: left message for jake at [facility] for meds Hx. no change in presentation. 04/13: no call-back from jake. spoke with blaise at [phone], who said she would fax medication Hx. no change in presentation. awaiting medication Hx for action. 04/14: Continue current tx plan. 04/15: Pt stated he signed a 3 day d/t not sleeping comfortably in these beds and making my neck hurt . He reports Tylenol being somewhat helpful. Pt states he continues to have auditory hallucinations and feels hopeless about the future. Pt stated, I want to be euthanized. I don't want to keep coming to the hospital. I used to never be like this. The voices in my head told me to hit my mom. The voices plan on driving me crazy. I wish someone could put me down. The voices were put there by someone else; only they can remove it. 04/16: Pt presents guarded today. He reports feeling okay today. Pt stated, my neck is feeling better today. I'm still worried about the voices . Keeping to self. [place] decreased to 300mg PO BID. 04/17: Continue current management and treatment plan. 04/18: Consider Propranolol for possible akathisia. 04/19: DC haldol/cogentin and return to olanzapine 20 QHS regimen. 3-day notice up tomorrow. states he would like to but denies intent or plan. DC lithium tomorrow as unhelpful. 04/20: denies SI/HI. of AVH says it's good. appears to be minimizing Sx in bid for discharge. retracts 3-day notice. DC lithium. planning to stabilize on new regimen through wednesday. 04/21 continue current treatment plan 04/22: Same presentation; continue current treatment plan 04/23 continue tx. Reason for continued inpatient stay Substantial Risk for: inability to function Time Spent With Patient Time: Total time managing care of this patient today ____ minutes.
[2023-04-23] MEDS: traZODone HCL 50 MG TABLET PO (22:24)
[2023-04-23] MEDS: OLANZapine 5 MG TABLET PO (22:24)
[2023-04-23] MEDS: OLANZapine 10 MG TABLET 20 MG PO (22:24)
[2023-04-23] MEDS: diphenhydrAMINE HCL 25 MG CAPSULE 50 MG PO (22:25)
[2023-04-24 07:35] VITALS: BP 116/72; PULSE 87; TEMP 36.8; O2SAT 97
[2023-04-24] MEDS: Lithium Carbonate ER 300 MG TABLET.ER PO ×2 (09:05→21:52)
--- NOTE | 2023-04-24 14:08 | HO.PSYCHPN ---
Subjective Subjective Date of Service: 04/24/23 Reason For Visit: Schizophrenia Subjective Notes: Conditional Voluntary Interim History: Pt in bed. He reports less voices. He denies SI/HI. He reports feeling tired this morning and wanting to sleep longer. Per nursing, pt slept through the night. Mostly in room today. He is visible for meals he does not attend groups. Review of Systems Review of Systems As per HPI. Yes all other systems are reviewed and are negative and Unobtainable due to mental status Constitutional: Reports as per HPI Eyes: Reports as per HPI Reports as per HPI Cardiovascular: Reports as per HPI Respiratory: Reports as per HPI Gastrointestinal: Reports as per HPI Genitourinary: Reports as per HPI Musculoskeletal: Reports as per HPI Skin/Breast: Reports as per HPI Reports as per HPI Psychiatric: Reports as per HPI Endocrine: Reports as per HPI Hematologic/Lymphatic: Reports as per HPI Allergic/Immunologic: Reports as per HPI Mental Status Exam Mental Status Exam Patient Appearance: Well Grooomed and Appropriate Patient Orientation: Person and Situation Level of Consciousness: Awake and Appropriate Patient Behavior: Guarded and Passive Mood Description: Calm Affect Description: Constricted Patient Cognition Impaired: Yes Ability to Follow Directions: Good Speech Pattern: Clear Diagnostics Vital Signs (24Hr): Vital Signs - 24 hr 04/24/23 07:35 Temperature 98.3 F Pulse Rate 87 Blood Pressure 116/72 Pulse Oximetry 97 Oxygen Delivery Method Room Air BMI result Body Mass Index 41.0 Labs 04/12/23 08:45 04/12/23 08:45 Medications Medications Current Medications Acetaminophen (Acetaminophen 325 Mg Tablet) 650 mg PO Q6H PRN PRN Reason: Headache/Pain Mild Scale (1-3) Last Admin: 04/20/23 20:57 Dose: 650 mg Al Hydroxide/Mg Hydroxide (Magnesium Hydrox/Alum Hydrox 30 Ml Oral.Susp) 30 ml PO Q6H PRN PRN Reason: Heartburn/Nausea Diphenhydramine HCl (Diphenhydramine Hcl 25 Mg Capsule) 50 mg PO BID PRN PRN Reason: Anxiety Last Admin: 04/23/23 22:25 Dose: 50 mg [place] Carbonate ([place] Carbonate Er 300 Mg Tablet.Er) 300 mg PO BID KYLE Last Admin: 04/24/23 09:05 Dose: 300 mg Magnesium Hydroxide (Milk Of Magnesia 30 Ml Oral.Susp) 30 ml PO DAILY PRN PRN Reason: Constipation Olanzapine (Olanzapine 10 Mg Tablet) 20 mg PO BEDTIME KYLE Last Admin: 04/23/23 22:24 Dose: 20 mg Olanzapine (Olanzapine 5 Mg Tablet) 5 mg PO Q4H PRN PRN Reason: agitation Last Admin: 04/23/23 22:24 Dose: 5 mg Trazodone HCl (Trazodone Hcl 50 Mg Tablet) 50 mg PO BEDTIME MRX1 PRN PRN Reason: Insomnia Last Admin: 04/23/23 22:24 Dose: 50 mg Allergies Allergies Allergy/AdvReac Type Severity Reaction Status Date / Time Penicillins [PENICILLINS] Allergy Unknown RASH Verified 05/19/21 07:39 Assessment & Plan Assessment & Plan (1) Schizophrenia: Status: Acute Code(s): F20.9 - Schizophrenia, unspecified Plan 03/25: start haldol 5 and benadryl 50 BID. had been on zyprexa, which was apparently too sedating. 03/26: denies any effects or side effects. continue current mgmt. 03/27: Continue current regimen and plans 03/28: Continue current regimen and plans. Make is Benadryl p.r.n. and add Cogentin 1 mg b.i.d. and discontinue Vistaril p.r.n. 03/29: commitment paperwork filed. continue current mgmt for now. T/C increasing haldol dosing and moving toward WONG prior to discharge. 03/30 added clonazepam for anxiety s/s to paranoid delusions. 03/31 continue tx. 04/01 pt agreed to sign CV and continued treatment. 04/02: paranoid delusions continue as well as apparent minimization of AH. increase haldol from 5 BID to 7.5 BID. 04/13 continue same treatment 04/04 continue same treatment 04/05: pt has endorsed AH to staff. c/o restlessness. out of concern for akathisia, benadryl 25 BID added to the cogentin 1 BID pt is already on. sleeping well, though. more active and engaging than last week. per collateral from outpt providers who visited today, not at his baseline. 04/06: Pt continues to report AH- he reports minimal change in frequency but it appears content of voices less paranoid or threatening content. He does appear less paranoia. I do not see evidence of akathisia- no tapping of feet, or need to pace. He has been mostly in bed. He continues to report some anxiety around others. No SI/HI. No aggression towards self or others. d/c benadryl as too sedating during the day. 04/07: in light of pt's expression of feeling constantly over-energized with racing thoughts and AH, will initiate trial of lithium in the event of atypical bipolar diathesis presentation. continue haldol and cogentin for now. pt reports this uncomfortable sensation predates haldol use. if lithium provides no relief, will increase haldol further. 04/08: no change from yesterday. continue lithium trial for several days. +SI, racing thoughts, AH. 04/09: little change; says racing mind/AH a little less, but mostly since he's isolated himself; continue tx plan 04/10: reports no change from several days ago. agreeable to increase haldol from 7.5 BID to 10 BID. 04/11: continue current regimen. research previous regimen of 1.5-2 yrs back which involved WONG, on which he and his brother feel he did better. check labs. 04/12: left message for jake at [facility] for meds Hx. no change in presentation. 04/13: no call-back from jake. spoke with blaise at [phone], who said she would fax medication Hx. no change in presentation. awaiting medication Hx for action. 04/14: Continue current tx plan. 04/15: Pt stated he signed a 3 day d/t not sleeping comfortably in these beds and making my neck hurt . He reports Tylenol being somewhat helpful. Pt states he continues to have auditory hallucinations and feels hopeless about the future. Pt stated, I want to be euthanized. I don't want to keep coming to the hospital. I used to never be like this. The voices in my head told me to hit my mom. The voices plan on driving me crazy. I wish someone could put me down. The voices were put there by someone else; only they can remove it. 04/16: Pt presents guarded today. He reports feeling okay today. Pt stated, my neck is feeling better today. I'm still worried about the voices . Keeping to self. [place] decreased to 300mg PO BID. 04/17: Continue current management and treatment plan. 04/18: Consider Propranolol for possible akathisia. 04/19: DC haldol/cogentin and return to olanzapine 20 QHS regimen. 3-day notice up tomorrow. states he would like to but denies intent or plan. DC lithium tomorrow as unhelpful. 04/20: denies SI/HI. of AVH says it's good. appears to be minimizing Sx in bid for discharge. retracts 3-day notice. DC lithium. planning to stabilize on new regimen through wednesday. 04/21 continue current treatment plan 04/22: Same presentation; continue current treatment plan 04/23 continue tx. 04/24 continue tx. Reason for continued inpatient stay Substantial Risk for: inability to function Time Spent With Patient Time: Total time managing care of this patient today ____ minutes.
[2023-04-24 19:25] VITALS: BP 102/64; PULSE 117; RESP 20; TEMP 36.6; O2SAT 98
[2023-04-24] MEDS: traZODone HCL 50 MG TABLET PO (21:52)
[2023-04-24] MEDS: OLANZapine 10 MG TABLET 20 MG PO (21:52)
[2023-04-24] MEDS: OLANZapine 5 MG TABLET PO (21:54)
[2023-04-24] MEDS: diphenhydrAMINE HCL 25 MG CAPSULE 50 MG PO (21:55)
[2023-04-25 07:45] VITALS: BP 107/58; PULSE 83; RESP 18; TEMP 36.3; O2SAT 97
[2023-04-25] MEDS: Lithium Carbonate ER 300 MG TABLET.ER PO ×2 (09:05→22:25)
--- NOTE | 2023-04-25 16:42 | P.PNPSI_ITS ---
Subjective Subjective Date of Service: 04/25/23 Reason For Visit: Schizophrenia Interim History: Pt in bed. He reports less voices. He denies SI/HI. He reports feeling tired this morning and wanting to sleep longer. Per nursing, pt slept through the night. Mostly in room today. He is visible for meals he does not attend groups. Review of Systems Review of Systems As per HPI. Yes all other systems are reviewed and are negative and Unobtainable due to mental status Constitutional: Reports as per HPI Eyes: Reports as per HPI Reports as per HPI Cardiovascular: Reports as per HPI Respiratory: Reports as per HPI Gastrointestinal: Reports as per HPI Genitourinary: Reports as per HPI Musculoskeletal: Reports as per HPI Skin/Breast: Reports as per HPI Reports as per HPI Psychiatric: Reports as per HPI Endocrine: Reports as per HPI Hematologic/Lymphatic: Reports as per HPI Allergic/Immunologic: Reports as per HPI Mental Status Exam Mental Status Exam Patient Appearance: Well Grooomed and Appropriate Patient Orientation: Person and Situation Level of Consciousness: Awake and Appropriate Patient Behavior: Guarded and Passive Mood Description: Calm Affect Description: Constricted Patient Cognition Impaired: Yes Ability to Follow Directions: Good Speech Pattern: Clear Diagnostics Vital Signs (24Hr): Vital Signs - 24 hr 04/24/23 19:25 04/25/23 07:45 Temperature 97.9 F 97.4 F Pulse Rate 117 H 83 Respiratory Rate 20 18 Blood Pressure 102/64 107/58 L Pulse Oximetry 98 97 Oxygen Delivery Method Room Air Room Air BMI result Body Mass Index 41.0 Labs 04/12/23 08:45 04/12/23 08:45 Medications Medications Current Medications Acetaminophen (Acetaminophen 325 Mg Tablet) 650 mg PO Q6H PRN PRN Reason: Headache/Pain Mild Scale (1-3) Last Admin: 04/20/23 20:57 Dose: 650 mg Al Hydroxide/Mg Hydroxide (Magnesium Hydrox/Alum Hydrox 30 Ml Oral.Susp) 30 ml PO Q6H PRN PRN Reason: Heartburn/Nausea Diphenhydramine HCl (Diphenhydramine Hcl 25 Mg Capsule) 50 mg PO BID PRN PRN Reason: Anxiety Last Admin: 04/24/23 21:55 Dose: 50 mg [place] Carbonate ([place] Carbonate Er 300 Mg Tablet.Er) 300 mg PO BID KYLE Last Admin: 04/25/23 09:05 Dose: 300 mg Magnesium Hydroxide (Milk Of Magnesia 30 Ml Oral.Susp) 30 ml PO DAILY PRN PRN Reason: Constipation Olanzapine (Olanzapine 10 Mg Tablet) 20 mg PO BEDTIME KYLE Last Admin: 04/24/23 21:52 Dose: 20 mg Olanzapine (Olanzapine 5 Mg Tablet) 5 mg PO Q4H PRN PRN Reason: agitation Last Admin: 04/24/23 21:54 Dose: 5 mg Trazodone HCl (Trazodone Hcl 50 Mg Tablet) 50 mg PO BEDTIME MRX1 PRN PRN Reason: Insomnia Last Admin: 04/24/23 21:52 Dose: 50 mg Allergies Allergies Allergy/AdvReac Type Severity Reaction Status Date / Time Penicillins [PENICILLINS] Allergy Unknown RASH Verified 05/19/21 07:39 Assessment & Plan Assessment & Plan (1) Schizophrenia: Status: Acute Code(s): F20.9 - Schizophrenia, unspecified Plan 03/25: start haldol 5 and benadryl 50 BID. had been on zyprexa, which was apparently too sedating. 03/26: denies any effects or side effects. continue current mgmt. 03/27: Continue current regimen and plans 03/28: Continue current regimen and plans. Make is Benadryl p.r.n. and add Cogentin 1 mg b.i.d. and discontinue Vistaril p.r.n. 03/29: commitment paperwork filed. continue current mgmt for now. T/C increasing haldol dosing and moving toward WONG prior to discharge. 03/30 added clonazepam for anxiety s/s to paranoid delusions. 03/31 continue tx. 04/01 pt agreed to sign CV and continued treatment. 04/02: paranoid delusions continue as well as apparent minimization of AH. increase haldol from 5 BID to 7.5 BID. 04/13 continue same treatment 04/04 continue same treatment 04/05: pt has endorsed AH to staff. c/o restlessness. out of concern for akathisia, benadryl 25 BID added to the cogentin 1 BID pt is already on. sleeping well, though. more active and engaging than last week. per collateral from outpt providers who visited today, not at his baseline. 04/06: Pt continues to report AH- he reports minimal change in frequency but it appears content of voices less paranoid or threatening content. He does appear less paranoia. I do not see evidence of akathisia- no tapping of feet, or need to pace. He has been mostly in bed. He continues to report some anxiety around others. No SI/HI. No aggression towards self or others. d/c benadryl as too sedating during the day. 04/07: in light of pt's expression of feeling constantly over-energized with racing thoughts and AH, will initiate trial of lithium in the event of atypical bipolar diathesis presentation. continue haldol and cogentin for now. pt reports this uncomfortable sensation predates haldol use. if lithium provides no relief, will increase haldol further. 04/08: no change from yesterday. continue lithium trial for several days. +SI, racing thoughts, AH. 04/09: little change; says racing mind/AH a little less, but mostly since he's isolated himself; continue tx plan 04/10: reports no change from several days ago. agreeable to increase haldol from 7.5 BID to 10 BID. 04/11: continue current regimen. research previous regimen of 1.5-2 yrs back which involved WONG, on which he and his brother feel he did better. check labs. 04/12: left message for jake at [facility] for meds Hx. no change in presentation. 04/13: no call-back from jake. spoke with blaise at [phone], who said she would fax medication Hx. no change in presentation. awaiting medication Hx for action. 04/14: Continue current tx plan. 04/15: Pt stated he signed a 3 day d/t not sleeping comfortably in these beds and making my neck hurt . He reports Tylenol being somewhat helpful. Pt states he continues to have auditory hallucinations and feels hopeless about the future. Pt stated, I want to be euthanized. I don't want to keep coming to the hospital. I used to never be like this. The voices in my head told me to hit my mom. The voices plan on driving me crazy. I wish someone could put me down. The voices were put there by someone else; only they can remove it. 04/16: Pt presents guarded today. He reports feeling okay today. Pt stated, my neck is feeling better today. I'm still worried about the voices . Keeping to self. [place] decreased to 300mg PO BID. 04/17: Continue current management and treatment plan. 04/18: Consider Propranolol for possible akathisia. 04/19: DC haldol/cogentin and return to olanzapine 20 QHS regimen. 3-day notice up tomorrow. states he would like to but denies intent or plan. DC lithium tomorrow as unhelpful. 04/20: denies SI/HI. of AVH says it's good. appears to be minimizing Sx in bid for discharge. retracts 3-day notice. DC lithium. planning to stabilize on new regimen through wednesday. 04/21 continue current treatment plan 04/22: Same presentation; continue current treatment plan 04/23 continue tx. 04/24 continue tx. 04/25 continue tx. Reason for continued inpatient stay Substantial Risk for: inability to function Time Spent With Patient Time: Total time managing care of this patient today ____ minutes.
[2023-04-25 19:55] VITALS: BP 119/65; PULSE 121; TEMP 36.6; O2SAT 97
[2023-04-25] MEDS: diphenhydrAMINE HCL 25 MG CAPSULE 50 MG PO (22:25)
[2023-04-25] MEDS: traZODone HCL 50 MG TABLET PO (22:25)
[2023-04-25] MEDS: OLANZapine 10 MG TABLET 20 MG PO (22:26)
[2023-04-26 07:10] VITALS: BP 101/56; PULSE 89; RESP 12; TEMP 36.3; O2SAT 96
[2023-04-26] MEDS: Lithium Carbonate ER 300 MG TABLET.ER PO (08:28)
--- NOTE | 2023-04-26 20:52 | HO.PSYCHPN ---
Subjective Subjective Date of Service: 04/26/23 Reason For Visit: Schizophrenia Interim History: calm, cooperative. no change in presentation. states he is feeling better, however, more calm. he would like to continue on his current regimen. c/o frequent erections when at home, but not in hospital, asking for medication to prevent him from having erections. denies any thoughts of wanting to , euthanasia. per staff, poor engagement, isolative. animated when engaged, however. Mental Status Exam Mental Status Exam Narrative: Pt is alert and oriented; behavior is cooperative and calm; dressed in casual attire; eye contact appropriate; Speech is nml amount, loudness, rate, and prosody and not pressured; no psychomotor agitation/retardation present; thought process is organized and goal directed; Thought content is on uncontrolled erections, with no delusions or paranoia evident; denies SI/HI. no AVH expressed. Patients insight and judgment are impaired. Diagnostics Vital Signs (24Hr): Vital Signs - 24 hr 04/26/23 07:10 Temperature 97.4 F Pulse Rate 89 Respiratory Rate 12 Blood Pressure 101/56 L Pulse Oximetry 96 Oxygen Delivery Method Room Air BMI result Body Mass Index 41.0 Labs 04/12/23 08:45 04/12/23 08:45 Medications Medications Current Medications Acetaminophen (Acetaminophen 325 Mg Tablet) 650 mg PO Q6H PRN PRN Reason: Headache/Pain Mild Scale (1-3) Last Admin: 04/20/23 20:57 Dose: 650 mg Al Hydroxide/Mg Hydroxide (Magnesium Hydrox/Alum Hydrox 30 Ml Oral.Susp) 30 ml PO Q6H PRN PRN Reason: Heartburn/Nausea Diphenhydramine HCl (Diphenhydramine Hcl 25 Mg Capsule) 50 mg PO BID PRN PRN Reason: Anxiety Last Admin: 04/25/23 22:25 Dose: 50 mg Magnesium Hydroxide (Milk Of Magnesia 30 Ml Oral.Susp) 30 ml PO DAILY PRN PRN Reason: Constipation Olanzapine (Olanzapine 10 Mg Tablet) 20 mg PO BEDTIME KYLE Last Admin: 04/25/23 22:26 Dose: 20 mg Olanzapine (Olanzapine 5 Mg Tablet) 5 mg PO Q4H PRN PRN Reason: agitation Last Admin: 04/24/23 21:54 Dose: 5 mg Trazodone HCl (Trazodone Hcl 50 Mg Tablet) 50 mg PO BEDTIME MRX1 PRN PRN Reason: Insomnia Last Admin: 04/25/23 22:25 Dose: 50 mg Allergies Allergies Allergy/AdvReac Type Severity Reaction Status Date / Time Penicillins [PENICILLINS] Allergy Unknown RASH Verified 05/19/21 07:39 Assessment & Plan Assessment & Plan (1) Schizophrenia: Status: Acute Code(s): F20.9 - Schizophrenia, unspecified Plan 03/25: start haldol 5 and benadryl 50 BID. had been on zyprexa, which was apparently too sedating. 03/26: denies any effects or side effects. continue current mgmt. 03/27: Continue current regimen and plans 03/28: Continue current regimen and plans. Make is Benadryl p.r.n. and add Cogentin 1 mg b.i.d. and discontinue Vistaril p.r.n. 03/29: commitment paperwork filed. continue current mgmt for now. T/C increasing haldol dosing and moving toward WONG prior to discharge. 03/30 added clonazepam for anxiety s/s to paranoid delusions. 03/31 continue tx. 04/01 pt agreed to sign CV and continued treatment. 04/02: paranoid delusions continue as well as apparent minimization of AH. increase haldol from 5 BID to 7.5 BID. 04/13 continue same treatment 04/04 continue same treatment 04/05: pt has endorsed AH to staff. c/o restlessness. out of concern for akathisia, benadryl 25 BID added to the cogentin 1 BID pt is already on. sleeping well, though. more active and engaging than last week. per collateral from outpt providers who visited today, not at his baseline. 04/06: Pt continues to report AH- he reports minimal change in frequency but it appears content of voices less paranoid or threatening content. He does appear less paranoia. I do not see evidence of akathisia- no tapping of feet, or need to pace. He has been mostly in bed. He continues to report some anxiety around others. No SI/HI. No aggression towards self or others. d/c benadryl as too sedating during the day. 04/07: in light of pt's expression of feeling constantly over-energized with racing thoughts and AH, will initiate trial of lithium in the event of atypical bipolar diathesis presentation. continue haldol and cogentin for now. pt reports this uncomfortable sensation predates haldol use. if lithium provides no relief, will increase haldol further. 04/08: no change from yesterday. continue lithium trial for several days. +SI, racing thoughts, AH. 04/09: little change; says racing mind/AH a little less, but mostly since he's isolated himself; continue tx plan 04/10: reports no change from several days ago. agreeable to increase haldol from 7.5 BID to 10 BID. 04/11: continue current regimen. research previous regimen of 1.5-2 yrs back which involved WONG, on which he and his brother feel he did better. check labs. 04/12: left message for jake at [facility] for meds Hx. no change in presentation. 04/13: no call-back from jake. spoke with blaise at [phone], who said she would fax medication Hx. no change in presentation. awaiting medication Hx for action. 04/14: Continue current tx plan. 04/15: Pt stated he signed a 3 day d/t not sleeping comfortably in these beds and making my neck hurt . He reports Tylenol being somewhat helpful. Pt states he continues to have auditory hallucinations and feels hopeless about the future. Pt stated, I want to be euthanized. I don't want to keep coming to the hospital. I used to never be like this. The voices in my head told me to hit my mom. The voices plan on driving me crazy. I wish someone could put me down. The voices were put there by someone else; only they can remove it. 04/16: Pt presents guarded today. He reports feeling okay today. Pt stated, my neck is feeling better today. I'm still worried about the voices . Keeping to self. [place] decreased to 300mg PO BID. 04/17: Continue current management and treatment plan. 04/18: Consider Propranolol for possible akathisia. 04/19: DC haldol/cogentin and return to olanzapine 20 QHS regimen. 3-day notice up tomorrow. states he would like to but denies intent or plan. DC lithium tomorrow as unhelpful. 04/20: denies SI/HI. of AVH says it's good. appears to be minimizing Sx in bid for discharge. retracts 3-day notice. DC lithium. planning to stabilize on new regimen through wednesday. 04/21 continue current treatment plan 04/22: Same presentation; continue current treatment plan 04/23 continue tx. 04/24 continue tx. 04/25 continue tx. 04/26: continue current mgmt. feeling more calm since switch back to zyprexa, denies SI. Reason for continued inpatient stay Substantial Risk for: rapid decompensation Time Spent With Patient Time: Total time managing care of this patient today __35__ minutes.
[2023-04-26] MEDS: OLANZapine 10 MG TABLET 20 MG PO (22:00)
[2023-04-26] MEDS: traZODone HCL 50 MG TABLET PO (22:00)
[2023-04-26] MEDS: diphenhydrAMINE HCL 25 MG CAPSULE 50 MG PO (22:00)
[2023-04-26 22:02] VITALS: BP 115/73; PULSE 89; TEMP 36.5; O2SAT 97
[2023-04-27 08:24] VITALS: BP 97/52; PULSE 93; RESP 18; TEMP 36.2; O2SAT 96
--- NOTE | 2023-04-27 15:33 | HO.PSYCHPN ---
Subjective Subjective Date of Service: 04/27/23 Reason For Visit: Schizophrenia Interim History: denies AH, states he is feeling calm, racing thoughts have subsided. planning for discharge later this week. Mental Status Exam Mental Status Exam Narrative: Pt is alert and oriented; behavior is cooperative and calm; dressed in casual attire; eye contact appropriate; Speech is nml amount, loudness, rate, and prosody and not pressured; no psychomotor agitation/retardation present; thought process is organized and goal directed; Thought content without delusions or paranoia; denies AH. no SI/HI expressed. Patients insight and judgment are impaired. Diagnostics Vital Signs (24Hr): Vital Signs - 24 hr 04/26/23 22:02 04/27/23 08:24 Temperature 97.7 F 97.1 F Pulse Rate 89 93 Respiratory Rate 18 Blood Pressure 115/73 97/52 L Pulse Oximetry 97 96 Oxygen Delivery Method Room Air Room Air BMI result Body Mass Index 41.0 Labs 04/12/23 08:45 04/12/23 08:45 Medications Medications Current Medications Acetaminophen (Acetaminophen 325 Mg Tablet) 650 mg PO Q6H PRN PRN Reason: Headache/Pain Mild Scale (1-3) Last Admin: 04/20/23 20:57 Dose: 650 mg Al Hydroxide/Mg Hydroxide (Magnesium Hydrox/Alum Hydrox 30 Ml Oral.Susp) 30 ml PO Q6H PRN PRN Reason: Heartburn/Nausea Diphenhydramine HCl (Diphenhydramine Hcl 25 Mg Capsule) 50 mg PO BID PRN PRN Reason: Anxiety Last Admin: 04/26/23 22:00 Dose: 50 mg Magnesium Hydroxide (Milk Of Magnesia 30 Ml Oral.Susp) 30 ml PO DAILY PRN PRN Reason: Constipation Olanzapine (Olanzapine 10 Mg Tablet) 20 mg PO BEDTIME KYLE Last Admin: 04/26/23 22:00 Dose: 20 mg Olanzapine (Olanzapine 5 Mg Tablet) 5 mg PO Q4H PRN PRN Reason: agitation Last Admin: 04/24/23 21:54 Dose: 5 mg Trazodone HCl (Trazodone Hcl 50 Mg Tablet) 50 mg PO BEDTIME MRX1 PRN PRN Reason: Insomnia Last Admin: 04/26/23 22:00 Dose: 50 mg Allergies Allergies Allergy/AdvReac Type Severity Reaction Status Date / Time Penicillins [PENICILLINS] Allergy Unknown RASH Verified 05/19/21 07:39 Assessment & Plan Assessment & Plan (1) Schizophrenia: Status: Acute Code(s): F20.9 - Schizophrenia, unspecified Plan 03/25: start haldol 5 and benadryl 50 BID. had been on zyprexa, which was apparently too sedating. 03/26: denies any effects or side effects. continue current mgmt. 03/27: Continue current regimen and plans 03/28: Continue current regimen and plans. Make is Benadryl p.r.n. and add Cogentin 1 mg b.i.d. and discontinue Vistaril p.r.n. 03/29: commitment paperwork filed. continue current mgmt for now. T/C increasing haldol dosing and moving toward WONG prior to discharge. 03/30 added clonazepam for anxiety s/s to paranoid delusions. 03/31 continue tx. 04/01 pt agreed to sign CV and continued treatment. 04/02: paranoid delusions continue as well as apparent minimization of AH. increase haldol from 5 BID to 7.5 BID. 04/13 continue same treatment 04/04 continue same treatment 04/05: pt has endorsed AH to staff. c/o restlessness. out of concern for akathisia, benadryl 25 BID added to the cogentin 1 BID pt is already on. sleeping well, though. more active and engaging than last week. per collateral from outpt providers who visited today, not at his baseline. 04/06: Pt continues to report AH- he reports minimal change in frequency but it appears content of voices less paranoid or threatening content. He does appear less paranoia. I do not see evidence of akathisia- no tapping of feet, or need to pace. He has been mostly in bed. He continues to report some anxiety around others. No SI/HI. No aggression towards self or others. d/c benadryl as too sedating during the day. 04/07: in light of pt's expression of feeling constantly over-energized with racing thoughts and AH, will initiate trial of lithium in the event of atypical bipolar diathesis presentation. continue haldol and cogentin for now. pt reports this uncomfortable sensation predates haldol use. if lithium provides no relief, will increase haldol further. 04/08: no change from yesterday. continue lithium trial for several days. +SI, racing thoughts, AH. 04/09: little change; says racing mind/AH a little less, but mostly since he's isolated himself; continue tx plan 04/10: reports no change from several days ago. agreeable to increase haldol from 7.5 BID to 10 BID. 04/11: continue current regimen. research previous regimen of 1.5-2 yrs back which involved WONG, on which he and his brother feel he did better. check labs. 04/12: left message for jake at [facility] for meds Hx. no change in presentation. 04/13: no call-back from jake. spoke with blaise at [phone], who said she would fax medication Hx. no change in presentation. awaiting medication Hx for action. 04/14: Continue current tx plan. 04/15: Pt stated he signed a 3 day d/t not sleeping comfortably in these beds and making my neck hurt . He reports Tylenol being somewhat helpful. Pt states he continues to have auditory hallucinations and feels hopeless about the future. Pt stated, I want to be euthanized. I don't want to keep coming to the hospital. I used to never be like this. The voices in my head told me to hit my mom. The voices plan on driving me crazy. I wish someone could put me down. The voices were put there by someone else; only they can remove it. 04/16: Pt presents guarded today. He reports feeling okay today. Pt stated, my neck is feeling better today. I'm still worried about the voices . Keeping to self. [place] decreased to 300mg PO BID. 04/17: Continue current management and treatment plan. 04/18: Consider Propranolol for possible akathisia. 04/19: DC haldol/cogentin and return to olanzapine 20 QHS regimen. 3-day notice up tomorrow. states he would like to but denies intent or plan. DC lithium tomorrow as unhelpful. 04/20: denies SI/HI. of [facility] says it's good. appears to be minimizing Sx in bid for discharge. retracts 3-day notice. DC lithium. planning to stabilize on new regimen through wednesday. 04/21 continue current treatment plan 04/22: Same presentation; continue current treatment plan 04/23 continue tx. 04/24 continue tx. 04/25 continue tx. 04/26: continue current mgmt. feeling more calm since switch back to zyprexa, denies SI. 04/27: continues feeling more calm, denies AH. thoughts no longer racing. planning for discharge later this week. Reason for continued inpatient stay Substantial Risk for: inability to function and rapid decompensation Time Spent With Patient Time: Total time managing care of this patient today ____ minutes.
[2023-04-27 19:50] VITALS: BP 128/72; PULSE 119; RESP 15; TEMP 36.5; O2SAT 96
[2023-04-27] MEDS: traZODone HCL 50 MG TABLET PO (21:51)
[2023-04-27] MEDS: diphenhydrAMINE HCL 25 MG CAPSULE 50 MG PO (21:52)
[2023-04-27] MEDS: OLANZapine 10 MG TABLET 20 MG PO (21:52)
[2023-04-28 08:00] VITALS: BP 111/55; PULSE 95; RESP 16; TEMP 36.2; O2SAT 95
--- NOTE | 2023-04-28 14:34 | P.PNPSI_ITS ---
Subjective Subjective Date of Service: 04/28/23 Reason For Visit: Schizophrenia Interim History: calm, cooperative. planning for discharge wednesday or wednesday. mood good, denies AH. per staff, dep/anx 4. flat, withdrawn, guarded. slept about 7 hours overnight. Mental Status Exam Mental Status Exam Narrative: Pt is alert and oriented; behavior is cooperative and calm; dressed in casual attire; eye contact appropriate; Speech is nml amount, loudness, rate, and prosody and not pressured; no psychomotor agitation/retardation present; thought process is organized and goal directed; Thought content without delusions or paranoia; denies AH. no SI/HI expressed. mood good. Patients insight and judgment are impaired. Diagnostics Vital Signs (24Hr): Vital Signs - 24 hr 04/27/23 19:50 04/28/23 08:00 Temperature 97.7 F 97.2 F Pulse Rate 119 H 95 Respiratory Rate 15 16 Blood Pressure 128/72 111/55 L Pulse Oximetry 96 95 Oxygen Delivery Method Room Air Room Air BMI result Body Mass Index 41.0 Labs 04/12/23 08:45 04/12/23 08:45 Medications Medications Current Medications Acetaminophen (Acetaminophen 325 Mg Tablet) 650 mg PO Q6H PRN PRN Reason: Headache/Pain Mild Scale (1-3) Last Admin: 04/20/23 20:57 Dose: 650 mg Al Hydroxide/Mg Hydroxide (Magnesium Hydrox/Alum Hydrox 30 Ml Oral.Susp) 30 ml PO Q6H PRN PRN Reason: Heartburn/Nausea Diphenhydramine HCl (Diphenhydramine Hcl 25 Mg Capsule) 50 mg PO BID PRN PRN Reason: Anxiety Last Admin: 04/27/23 21:52 Dose: 50 mg Magnesium Hydroxide (Milk Of Magnesia 30 Ml Oral.Susp) 30 ml PO DAILY PRN PRN Reason: Constipation Olanzapine (Olanzapine 10 Mg Tablet) 20 mg PO BEDTIME KYLE Last Admin: 04/27/23 21:52 Dose: 20 mg Olanzapine (Olanzapine 5 Mg Tablet) 5 mg PO Q4H PRN PRN Reason: agitation Last Admin: 04/24/23 21:54 Dose: 5 mg Trazodone HCl (Trazodone Hcl 50 Mg Tablet) 50 mg PO BEDTIME MRX1 PRN PRN Reason: Insomnia Last Admin: 04/27/23 21:51 Dose: 50 mg Allergies Allergies Allergy/AdvReac Type Severity Reaction Status Date / Time Penicillins [PENICILLINS] Allergy Unknown RASH Verified 05/19/21 07:39 Assessment & Plan Assessment & Plan (1) Schizophrenia: Status: Acute Code(s): F20.9 - Schizophrenia, unspecified Plan 03/25: start haldol 5 and benadryl 50 BID. had been on zyprexa, which was apparently too sedating. 03/26: denies any effects or side effects. continue current mgmt. 03/27: Continue current regimen and plans 03/28: Continue current regimen and plans. Make is Benadryl p.r.n. and add Cogentin 1 mg b.i.d. and discontinue Vistaril p.r.n. 03/29: commitment paperwork filed. continue current mgmt for now. T/C increasing haldol dosing and moving toward WONG prior to discharge. 03/30 added clonazepam for anxiety s/s to paranoid delusions. 03/31 continue tx. 04/01 pt agreed to sign CV and continued treatment. 04/02: paranoid delusions continue as well as apparent minimization of AH. increase haldol from 5 BID to 7.5 BID. 04/13 continue same treatment 04/04 continue same treatment 04/05: pt has endorsed AH to staff. c/o restlessness. out of concern for akathisia, benadryl 25 BID added to the cogentin 1 BID pt is already on. sleeping well, though. more active and engaging than last week. per collateral from outpt providers who visited today, not at his baseline. 04/06: Pt continues to report AH- he reports minimal change in frequency but it appears content of voices less paranoid or threatening content. He does appear less paranoia. I do not see evidence of akathisia- no tapping of feet, or need to pace. He has been mostly in bed. He continues to report some anxiety around others. No SI/HI. No aggression towards self or others. d/c benadryl as too sedating during the day. 04/07: in light of pt's expression of feeling constantly over-energized with racing thoughts and AH, will initiate trial of lithium in the event of atypical bipolar diathesis presentation. continue haldol and cogentin for now. pt reports this uncomfortable sensation predates haldol use. if lithium provides no relief, will increase haldol further. 04/08: no change from yesterday. continue lithium trial for several days. +SI, racing thoughts, AH. 04/09: little change; says racing mind/AH a little less, but mostly since he's isolated himself; continue tx plan 04/10: reports no change from several days ago. agreeable to increase haldol from 7.5 BID to 10 BID. 04/11: continue current regimen. research previous regimen of 1.5-2 yrs back which involved WONG, on which he and his brother feel he did better. check labs. 04/12: left message for jake at [facility] for meds Hx. no change in presentation. 04/13: no call-back from jake. spoke with blaise at [phone], who said she would fax medication Hx. no change in presentation. awaiting medication Hx for action. 04/14: Continue current tx plan. 04/15: Pt stated he signed a 3 day d/t not sleeping comfortably in these beds and making my neck hurt . He reports Tylenol being somewhat helpful. Pt states he continues to have auditory hallucinations and feels hopeless about the future. Pt stated, I want to be euthanized. I don't want to keep coming to the hospital. I used to never be like this. The voices in my head told me to hit my mom. The voices plan on driving me crazy. I wish someone could put me down. The voices were put there by someone else; only they can remove it. 04/16: Pt presents guarded today. He reports feeling okay today. Pt stated, my neck is feeling better today. I'm still worried about the voices . Keeping to self. [place] decreased to 300mg PO BID. 04/17: Continue current management and treatment plan. 04/18: Consider Propranolol for possible akathisia. 04/19: DC haldol/cogentin and return to olanzapine 20 QHS regimen. 3-day notice up tomorrow. states he would like to but denies intent or plan. DC lithium tomorrow as unhelpful. 04/20: denies SI/HI. of [facility] says it's good. appears to be minimizing Sx in bid for discharge. retracts 3-day notice. DC lithium. planning to stabilize on new regimen through wednesday. 04/21 continue current treatment plan 04/22: Same presentation; continue current treatment plan 04/23 continue tx. 04/24 continue tx. 04/25 continue tx. 04/26: continue current mgmt. feeling more calm since switch back to zyprexa, denies SI. 04/27: continues feeling more calm, denies AH. thoughts no longer racing. planning for discharge later this week. 04/28: stable, continues with improved mood, no AH, no safety concerns. planning for wednesday or wednesday discharge. Reason for continued inpatient stay Substantial Risk for: inability to function and rapid decompensation Time Spent With Patient Time: Total time managing care of this patient today __25__ minutes.
[2023-04-28 19:45] VITALS: BP 128/60; PULSE 109; RESP 18; TEMP 36.8; O2SAT 96
[2023-04-28] MEDS: OLANZapine 10 MG TABLET 20 MG PO (22:06)
[2023-04-28] MEDS: traZODone HCL 50 MG TABLET PO (22:07)
[2023-04-28] MEDS: diphenhydrAMINE HCL 25 MG CAPSULE 50 MG PO (22:07)
[2023-04-29 07:59] VITALS: BP 106/67; PULSE 97; RESP 18; TEMP 36.2; O2SAT 97
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
[2023-04-29 19:22] VITALS: BP 124/57; PULSE 110; RESP 16; TEMP 36.6; O2SAT 96
[2023-04-29] MEDS: OLANZapine 10 MG TABLET 20 MG PO (21:57)
[2023-04-29] MEDS: diphenhydrAMINE HCL 25 MG CAPSULE 50 MG PO (21:57)
[2023-04-29] MEDS: traZODone HCL 50 MG TABLET PO (21:57)
[2023-04-30 07:20] VITALS: BP 125/55; PULSE 82; RESP 16; TEMP 37; O2SAT 96
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
== END 2023-04-30 13:25 | disposition home or self-care (01) | DRG 885 ==
LOC: HO.ED 15:06 → HO.PADLT16 21:06
PROVIDERS: Registered Nurse Emergency; Admitting Provider Clinical Nurse Specialist Psychiatric/Mental Health, Adult; Emergency Provider Emergency Medicine; Visit Provider Psychiatry & Neurology Psychiatry
DX: F20.9 Schizophrenia, unspecified (principal); R45.851 Suicidal ideations; R45.850 Homicidal ideations; F84.0 Autistic disorder; F90.9 Attention-deficit hyperactivity disorder, unspecified type; Z20.811 Contact with and (suspected) exposure to meningococcus; Z91.148 Patient's other noncompliance with medication regimen for other reason; Z79.899 Other long term (current) drug therapy
CPT/HCPCS: 36415; 80048; 80053; 80061; 80076; 80143; 80178; 80179; 80307; 81003; 82607; 82746; 83036; 83735; 84439; 84443; 85025; 87635; 99285; J1200; J2060; S9485

== ENCOUNTER → 2023-03-24 20:50 | Outpatient (BNV) | payer OTHER, SELFPAY | PROVIDERS: Admitting Provider Clinical Nurse Specialist Psychiatric/Mental Health, Adult; Emergency Provider Emergency Medicine; Visit Provider Psychiatry & Neurology Psychiatry | DX: F20.0 Paranoid schizophrenia (principal) | CPT/HCPCS: 90792; 99231; 99232; 99239 ==

== ENCOUNTER 2023-07-19 17:32 | Inpatient (IN) | payer MEDICARE, OTHER, SELFPAY ==
--- NOTE | 2023-07-19 | ECG_ITS ---
Test Reason : MED CLEARANCE Blood Pressure : / mmHG Vent. Rate : 078 BPM Atrial Rate : 078 BPM P-R Int : 156 ms QRS Dur : 110 ms QT Int : 360 ms P-R-T Axes : 025 045 017 degrees QTc Int : 410 ms Normal sinus rhythm Normal ECG When compared with ECG of 22-FEB-2023 10:16, No significant change was found Referred By: Helga Lemon Electronically Signed By:ANEESH AMBROSIO MD
[2023-07-19 18:28] VITALS: BMI 46.2
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
[2023-07-19 18:44] VITALS: BP 120/77; PULSE 89; RESP 16; TEMP 36.6; O2SAT 97
--- NOTE | 2023-07-19 19:02 | ED.PSYCH ---
HPI - Psych General Chief Complaint: Psychiatric Symptoms Stated Complaint: section 12 from , more details on arrival Time Seen by Provider: 07/19/23 17:52 Source: patient and EMS Mode of arrival: EMS Limitations: no limitations History of Present Illness HPI Narrative: Patient is a 28-year-old male who presents emergency department via EMS on a section 12 from [facility]. He was evaluated in the community, found to be having paranoid delusions, auditory hallucinations, has been noncompliant with his medications for schizophrenia. Agitation and posturing at the time of the examination, evidently in the past he has a history of becoming aggressive when he is decompensated. He does admit that recently he has been missing work due to the way he is feeling, eating less and not feeling like himself. When asked why he stopped taking his medications he is not able to tell me any clear answer. He denies any suicidal or homicidal ideations. Related Data Home Medications Medication Instructions Recorded Confirmed olanzapine 10 mg tablet 10 mg PO DAILY 07/20/23 07/20/23 Allergies Allergy/AdvReac Type Severity Reaction Status Date / Time Penicillins [PENICILLINS] Allergy Unknown RASH Verified 05/19/21 07:39 Review of Systems Review of Systems: Yes all other systems are reviewed and are negative PMFSH Past Medical History Attestation statement: The following information was validated with the patient. Source: old records reviewed Medical History Depression ADHD Schizophrenia Social History Social History Household Members: Family Housing: Apartment Do you presently have visiting nurse or other home services: No Alcohol intake: unknown Comment: patient on 5 minute checks for safety unrelated to fall assessment. Patient Tobacco Use Status: Never used Tobacco Smoked in Last 30 Days: No e-Cigarette/Vaping Use: Never Used Second Hand Smoke Exposure: No Use of substances other than those prescribed or required for medical reasons: No Substance Use Type: Marijuana Advance Directives: No Advance Directives Information Provided: No Healthcare Proxy: No Guardian: No service: No Sexual orientation: Don't Know Physical Exam Vital Signs: Vital Signs: Last Vital Signs Temp 98.6 F 07/21/23 11:10 Pulse 94 07/21/23 11:10 Resp 18 07/21/23 11:10 BP 120/70 07/21/23 11:10 Pulse Ox 97 07/21/23 11:10 O2 Del Method Room Air 07/21/23 11:10 BMI result Body Mass Index 46.2 Appearance: Alert.?Oriented to person, place and time. No acute distress.?Normal affect. Eyes: Pupils equal, round and reactive to light.? ENT: Pharynx normal.?? Neck: Normal inspection.? Neck supple.?? CVS: Heart sounds normal. Normal heart rate and rhythm.? Pulses normal.?? Respiratory: No respiratory distress.? Lung sounds clear to auscultation bilaterally?? Abdomen: Soft and non-tender. Normoactive bowel sounds. No pulsatile mass.?? Skin: Skin warm and dry.? Normal skin color.? Normal skin turgor.?? Extremities: No lower extremity edema.? No calf ttp? Neuro: Moves all extremities spontaneously. Sensation intact bilaterally. CN II-XII intact. No focal neuro deficits. Ambulates with normal steady gait. Medications Administered Generic Name Dose Route Start Last Admin Trade Name Freq PRN Reason Stop Dose Admin Olanzapine 10 mg 07/21/23 09:00 07/21/23 09:43 Olanzapine 10 Mg Tablet PO 10 mg DAILY KYLE Administration Medical Decision Making Medical Decision Making [facility] Narrative: Patient is a 28-year-old male with past medical history of depression, autism, ADHD, schizophrenia presenting to the emergency department a section 12 from the Community was evaluated by [facility] for decompensated schizophrenia. Patient has no physical complaints, denies any suicidal or homicidal ideations. He does not provide to me specific reasoning for his recent noncompliance. Will obtain basic labs to exclude acute derangements, in addition to Toxicology testing. Anticipate that he will be placed in physician observation once medically cleared so that bed search can ensue for inpatient psych. Differential Diagnosis Differential Diagnoses: The differential diagnosis associated with the presentation includes (Decompensated schizophrenia, paranoia, aggression, depression, substance use) Admission/Observation Consideration of admission/observation: Escalation of care including admission/observation considered (As per narrative above) Consult Healthcare Provider Management of the patient was discussed with: Behavioral Health Provider Lab Data [facility] Lab Attestation statement: I reviewed the patient's lab results. CBC and CMP are overall unremarkable. Toxicology positive for marijuana. COVID screen negative. 07/19/23 19:20 07/19/23 19:20 Labs: Lab Results 07/19/23 07/19/23 07/21/23 Range/Units 19:20 19:54 09:50 WBC 11.9 H (4.8-10.8) X10*3/uL RBC 4.95 (4.60-5.80) X10*6/uL Hgb 15.2 (14.0-18.0) g/dl Hct 44.2 (42.0-52.0) % MCV 89.3 (80.0-98.0) fL MCH 30.7 (27.0-33.0) pg MCHC 34.4 (31.0-36.0) g/dl RDW 12.5 (11.0-16.0) % Plt Count 335 (160-400) X10*3/uL MPV 9.8 (9.4-12.4) fL Immature Gran % (Auto) 0.3 (0.0-0.4) % Neut % (Auto) 69.4 (45-73) % Lymph % (Auto) 22.1 (20-40) % [place] % (Auto) 6.0 (2-11) % Eos % (Auto) 1.9 (0-4) % Baso % (Auto) 0.3 (0-2) % Lymph # (Auto) 2.6 (1.2-4.9) X10*3/uL [place] # (Auto) 0.7 (0.1-1.2) X10*3/uL Eos # (Auto) 0.2 (0.0-0.4) X10*3/uL Baso # (Auto) 0.0 (0.0-0.2) X10*3/uL Abs Immat Gran (auto) 0.03 (0.00-0.03) X10*3/uL Absolute Neuts (auto) 8.3 (2.0-8.3) x10*3/uL Absolute Nucleated RBC 0.000 (0.0-0.012) X10*3/uL Nucleated RBC % (auto) 0.0 (0.0-0.2) /100WBC Sodium 142 (135-145) mmol/L Potassium 3.7 (3.3-5.1) mmol/L Chloride 107 (96-108) mmol/L Carbon Dioxide 21 L (22-29) mmol/L Anion Gap 18 (12-20) BUN 16 (9-16) mg/dL Creatinine 1.00 (0.5-1.4) mg/dL Estim Creat Clear Calc 152.8 Estimated GFR > 60 Random Glucose 95 (60-115) mg/dL Calcium 10.7 H (8.4-10.2) mg/dL Total Bilirubin 0.3 (0.0-1.0) mg/dL AST 27 (5-37) U/L ALT 51 H (0-40) U/L Alkaline Phosphatase 66 (39-117) U/L Total Protein 8.4 H (6.5-8.0) g/dL Albumin 4.8 (3.5-5.0) g/dL Salicylates < 5.0 L (15-30) mg/dL Urine Opiates Screen Not Detected (Not Detect) Urine Fentanyl Screen Not Detected (Not Detect) Acetaminophen < 3 (<30) mcg/mL Ur Barbiturates Screen Not Detected (Not Detect) Ur Phencyclidine Scrn Not Detected (Not Detect) Ur Amphetamines Screen Not Detected (Not Detect) U Benzodiazepines Scrn Not Detected (Not Detect) Urine Cocaine Screen Not Detected (Not Detect) U Marijuana (THC) Screen POSITIVE H (Not Detect) Ethyl Alcohol < 10 mg/dL COVID-19 (RUBÉN) Negative Negative (Negative) COVID-19 Clin Com See Note See Note Independent Historian Clinical information obtained from an independent historian. History obtained from or confirmed by: EMS External Record Review External record reviewed: Outpatient record Discharge Plan Discharge Clinical Impression: Schizophrenia Patient Disposition: Still a Patient Prescriptions: No Action olanzapine 10 mg tablet 10 mg PO DAILY Interventions: [place]-Suicide Risk Severity Scale Last Done: 07/21/23 05:49
[2023-07-19 19:25] LABS: MANUAL DIFF FLAG NO
[2023-07-19 19:32] LABS: Basophils Percent Auto 0.3 % (0-2); Eosinophils Absolute Auto 0.2 X10*3/uL (0.0-0.4); Eosinophils Percent Auto 1.9 % (0-4); Hematocrit 44.2 % (42.0-52.0); Hemoglobin 15.2 g/dl (14.0-18.0); Imm Gran Abs Auto 0.03 X10*3/uL (0.00-0.03); Imm Gran Pct Auto 0.3 % (0.0-0.4); Lymphocytes Absolute Auto 2.6 X10*3/uL (1.2-4.9); Lymphocytes Percent Auto 22.1 % (20-40); Mean Corpuscular HGB Conc 34.4 g/dl (31.0-36.0); Mean Corpuscular Hemoglobin 30.7 pg (27.0-33.0); Mean Corpuscular Volume 89.3 fL (80.0-98.0); Mean Platelet Volume 9.8 fL (9.4-12.4); Monocytes Absolute Auto 0.7 X10*3/uL (0.1-1.2); Neutrophils Absolute Auto 8.3 x10*3/uL (2.0-8.3); Neutrophils Percent Auto 69.4 % (45-73); Platelet Count 335 X10*3/uL (160-400); Red Blood Count 4.95 X10*6/uL (4.60-5.80); Red Cell Distribution Width 12.5 % (11.0-16.0); White Blood Count 11.9 X10*3/uL (4.8-10.8)
[2023-07-19 19:39] LABS: COVID-19 Test Negative (Negative); IDNOW Serial# 152EDE1D
[2023-07-19 19:46] LABS: Acetaminophen LAB < 3 mcg/mL (<30); Alanine Aminotransferase 51 U/L (0-40); Albumin Level 4.8 g/dL (3.5-5.0); Alkaline Phosphatase 66 U/L (39-117); Anion Gap 18 (12-20); Aspartate Amino Transferase 27 U/L (5-37); Bilirubin Total 0.3 mg/dL (0.0-1.0); Blood Urea Nitrogen 16 mg/dL (9-16); Calcium 10.7 mg/dL (8.4-10.2); Carbon Dioxide 21 mmol/L (22-29); Chloride 107 mmol/L (96-108); Creatinine Clr Calc Pharmacy 152.8; Estimated Glomerular Filt Rate > 60; Ethanol < 10 mg/dL; Glucose Random 95 mg/dL (60-115); Potassium 3.7 mmol/L (3.3-5.1); Salicylate < 5.0 mg/dL (15-30); Sodium 142 mmol/L (135-145); Total Protein 8.4 g/dL (6.5-8.0)
[2023-07-19 20:09] LABS: Amphetamine Screen Urine Not Detected (Not Detect); Barbiturates, Urine Not Detected (Not Detect); Benzodiazepines Screen Urine Not Detected (Not Detect); Cannabinoid Screen Urine POSITIVE (Not Detect); Cocaine Screen Urine Not Detected (Not Detect); Fentanyl, urine Not Detected (Not Detect); Opiate Screen Urine Not Detected (Not Detect); Phencyclidine Screen Urine Not Detected (Not Detect)
--- NOTE | 2023-07-19 20:17 | PC.NURSE ---
pt denies si/hi. here on section 12 from chd d/t behavioral concerns. pt not taking usual psych medications. calm/cooperative at this time. changed into hospital attire belongings secured during previous shift. 1:1 sitter at bedside.
[2023-07-19 22:00] VITALS: BP 120/70; PULSE 84; RESP 18; TEMP 36.7; O2SAT 98
--- NOTE | 2023-07-20 03:08 | MHC.EDTECH ---
This tech took over care of patient at 0300AM,hourly rounds completed,patient is resting comfortably at this time,call maldonado in reach and sitter at bedside for safety.
[2023-07-20 03:49] VITALS: RESP 16
[2023-07-20 05:33] VITALS: BP 105/55; PULSE 80; RESP 16; TEMP 36.5; O2SAT 97
--- NOTE | 2023-07-20 13:46 | PC.NURSE ---
eating lunch, no complaints, denies SI/HI. sitter at bedside
--- NOTE | 2023-07-20 13:52 | PC.NURSE ---
med rec completed by this RN. per Pt, he takes one medication at home. 10mg Olanzapine once per day.
[2023-07-20 21:14] VITALS: BP 130/62; PULSE 73; RESP 18; TEMP 36.7; O2SAT 96
--- NOTE | 2023-07-20 23:24 | MHC.CARE ---
RAD Team conducted state wide bed search for this pt, referral was sent to [facility], [facility], [facility], [facility], [facility], [facility], [facility], [facility], [facility], [facility] for review. RAD Team to follow up tomorrow
[2023-07-21 06:13] VITALS: RESP 16
--- NOTE | 2023-07-21 07:23 | PC.NURSE ---
Assumed care of patient at 0700, patient appears to be sleeping, respirations even and unlabored, no apparent distress. Continue plan of care for Sec 12, inpt bedsearch
[2023-07-21] MEDS: OLANZapine 10 MG TABLET PO (09:43)
[2023-07-21 10:41] LABS: COVID-19 Test Negative (Negative); IDNOW Serial# 6674DD1D
[2023-07-21 11:10] VITALS: BP 120/70; PULSE 94; RESP 18; TEMP 37; O2SAT 97
[2023-07-21 14:10] VITALS: BP 122/71; PULSE 86; RESP 20; TEMP 36.7; O2SAT 97
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
[2023-07-21 19:46] VITALS: BP 130/79; PULSE 95; RESP 18; TEMP 36.5; O2SAT 96
[2023-07-21] MEDS: traZODone HCL 50 MG TABLET PO (23:20)
[2023-07-22 07:00] VITALS: BMI 44.8
[2023-07-22 07:46] LABS: Cholesterol 138 mg/dL (<200); HDL Cholesterol 23 mg/dL (>40); LDL Cholesterol Calculated 89 mg/dL (<100); Triglycerides 130 mg/dL (<150)
[2023-07-22 08:02] LABS: Estimated Average Glucose 108 mg/dL; Free T4 (Free Thyroxine) 0.91 ng/dL (0.71-1.85); Hemoglobin A1c % 5.4 % (<6.0); Thyroid Stimulating Hormone 0.81 uIU/mL (0.32-4.0)
[2023-07-22 08:05] VITALS: BP 108/59; PULSE 83; RESP 16; TEMP 36.3; O2SAT 98
[2023-07-22 08:27] LABS: Folate 11.8 ng/mL (> or = 4.0); Vitamin B12 594 pg/mL (200-900)
[2023-07-22] MEDS: OLANZapine 10 MG TABLET PO (08:30)
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
[2023-07-22 19:55] VITALS: BP 133/69; PULSE 105; RESP 18; TEMP 36.3; O2SAT 95
[2023-07-22] MEDS: traZODone HCL 50 MG TABLET PO (21:35)
[2023-07-23] MEDS: OLANZapine 10 MG TABLET PO (09:37)
[2023-07-23 09:52] VITALS: BP 138/86; PULSE 121; RESP 16; TEMP 36.6; O2SAT 95
[2023-07-23 19:15] VITALS: BP 119/63; PULSE 93; RESP 18; TEMP 36.2; O2SAT 95
--- NOTE | 2023-07-23 19:28 | HO.PSYCHPN ---
Subjective Subjective Date of Service: 07/23/23 Reason For Visit: Psychosis Subjective Notes: Conditional Voluntary Interim History: Pt slept most of the night. He is mostly in bed, minimally interacting with peers or staff but pleasant on approach. He continues to report AH/VH. Pending registration in [facility] to start clozaril. Mental Status Exam Mental Status Exam Narrative: Appearance: wearing hospital gown, laying in bed mattress in the floor as he often does when he comes to the unit. Behavior: cooperative Psychomotor: some moving feet constantly while laying in bed. no agitation or retardation noted Speech: clear, normal rate/rhythm/volume, spontaneous TP: linear TC: hearing voices, which is debilitating at times Mood: good Affect: somewhat frustrated with mother calling police and him being in the hospital. SI: denies HI: denies VH/AH: hearing voices of multiple people telling him things like be pickens or don't talk Delusions: thinks people from previous job are harrasing him Insight/judgment: fair x 2 Memory/cog: alert, oriented x 3. Diagnostics Vital Signs (24Hr): Vital Signs - 24 hr 07/22/23 19:55 07/23/23 09:52 Temperature 97.3 F 97.8 F Pulse Rate 105 H 121 H Respiratory Rate 18 16 Blood Pressure 133/69 138/86 Pulse Oximetry 95 95 Oxygen Delivery Method Room Air Room Air BMI result Body Mass Index 44.8 Labs 07/19/23 19:20 07/19/23 19:20 Labs: Laboratory Results - last 48 hr 07/22/23 07:15 Estimat Average Glucose 108 Hemoglobin A1c % 5.4 Triglycerides 130 Cholesterol 138 LDL Cholesterol, Calc 89 HDL Cholesterol 23 L Vitamin B12 594 Folate 11.8 TSH 0.81 Free T4 0.91 Medications Medications Current Medications Acetaminophen (Acetaminophen 325 Mg Tablet) 650 mg PO Q6H PRN PRN Reason: Headache/Pain Mild Scale (1-3) Al Hydroxide/Mg Hydroxide (Magnesium Hydrox/Alum Hydrox 30 Ml Oral.Susp) 30 ml PO Q6H PRN PRN Reason: Heartburn/Nausea Hydroxyzine HCl (Hydroxyzine Hcl 25 Mg Tablet) 25 mg PO Q6H PRN PRN Reason: Anxiety Magnesium Hydroxide (Milk Of Magnesia 30 Ml Oral.Susp) 30 ml PO DAILY PRN PRN Reason: Constipation Nicotine Polacrilex (Nicotine Polacrilex 2 Mg Gum) 4 mg BUCCAL Q2H PRN PRN Reason: Nicotine Cravings Olanzapine (Olanzapine 10 Mg Tablet) 10 mg PO DAILY KYLE Last Admin: 07/23/23 09:37 Dose: 10 mg Trazodone HCl (Trazodone Hcl 50 Mg Tablet) 50 mg PO BEDTIME MRX1 PRN PRN Reason: Insomnia Last Admin: 07/22/23 21:35 Dose: 50 mg Allergies Allergies Allergy/AdvReac Type Severity Reaction Status Date / Time Penicillins [PENICILLINS] Allergy Unknown RASH Verified 05/19/21 07:39 Assessment & Plan Assessment & Plan (1) Schizophrenia: Status: Acute Code(s): F20.9 - Schizophrenia, unspecified Plan Mr. Francis is a 28 year-old male with hx of schizophrenia who was brought on sect 12a after mother called police due to verbal threat and posturing due to increase paranoid delusions. Pt is well known to this unit. He has tried while on the unit good therapeutic dose of olanzapine and haldol with minimal therapeutic benefit. We discussed trial of clozaril, which he agrees but does not think will work given that he has tried other medications and this point he states these are not voices, they are doing this to me, I don't need medication, you need to stop them! PLAN 1. Admit to [facility], CV 15 minutes checks for safety 2. start clozaril, will have to register to [facility]- clozaril 25mg po qhs, increase by 25mg daily as tolerated. 3. aftercare planning 4. obtain collateral information. Reason for continued inpatient stay Substantial Risk for: inability to function Time Spent With Patient Time: Total time managing care of this patient today ____ minutes.
[2023-07-23] MEDS: traZODone HCL 50 MG TABLET PO (23:13)
[2023-07-24 07:30] VITALS: BP 126/66; PULSE 92; RESP 16; TEMP 36.3; O2SAT 94
[2023-07-24] MEDS: OLANZapine 10 MG TABLET PO (08:09)
--- NOTE | 2023-07-24 15:00 | HO.PSYCHPN ---
Subjective Subjective Date of Service: 07/24/23 Reason For Visit: Psychosis Interim History: Pt slept most of the night. Sleeps on a mattress on the floor. He is mostly in bed. He isolates and is minimally interacting with peers or staff but pleasant on approach. He continues to report AH/VH. Pending registration in [facility] to start Clozaril. Review of Systems Review of Systems Yes all other systems are reviewed and are negative Mental Status Exam Mental Status Exam Narrative: Appearance: wearing hospital gown, laying in bed mattress in the floor as he often does when he comes to the unit. Behavior: cooperative Psychomotor: some moving feet constantly while laying in bed. no agitation or retardation noted Speech: clear, normal rate/rhythm/volume, spontaneous TP: linear TC: hearing voices, which is debilitating at times Mood: good Affect: somewhat frustrated with mother calling police and him being in the hospital. SI: denies HI: denies VH/AH: hearing voices of multiple people telling him things like be pickens or don't talk Delusions: thinks people from previous job are harrasing him Insight/judgment: fair x 2 Memory/cog: alert, oriented x 3. Diagnostics Vital Signs (24Hr): Vital Signs - 24 hr 07/23/23 19:15 07/24/23 07:30 Temperature 97.1 F 97.3 F Pulse Rate 93 92 Respiratory Rate 18 16 Blood Pressure 119/63 126/66 Pulse Oximetry 95 94 Oxygen Delivery Method Room Air Room Air BMI result Body Mass Index 44.8 Labs 07/19/23 19:20 07/19/23 19:20 Medications Medications Current Medications Acetaminophen (Acetaminophen 325 Mg Tablet) 650 mg PO Q6H PRN PRN Reason: Headache/Pain Mild Scale (1-3) Al Hydroxide/Mg Hydroxide (Magnesium Hydrox/Alum Hydrox 30 Ml Oral.Susp) 30 ml PO Q6H PRN PRN Reason: Heartburn/Nausea Hydroxyzine HCl (Hydroxyzine Hcl 25 Mg Tablet) 25 mg PO Q6H PRN PRN Reason: Anxiety Magnesium Hydroxide (Milk Of Magnesia 30 Ml Oral.Susp) 30 ml PO DAILY PRN PRN Reason: Constipation Nicotine Polacrilex (Nicotine Polacrilex 2 Mg Gum) 4 mg BUCCAL Q2H PRN PRN Reason: Nicotine Cravings Olanzapine (Olanzapine 10 Mg Tablet) 10 mg PO DAILY KYLE Last Admin: 07/24/23 08:09 Dose: 10 mg Trazodone HCl (Trazodone Hcl 50 Mg Tablet) 50 mg PO BEDTIME MRX1 PRN PRN Reason: Insomnia Last Admin: 07/23/23 23:13 Dose: 50 mg Allergies Allergies Allergy/AdvReac Type Severity Reaction Status Date / Time Penicillins [PENICILLINS] Allergy Unknown RASH Verified 05/19/21 07:39 Assessment & Plan Assessment & Plan (1) Schizophrenia: Status: Acute Code(s): F20.9 - Schizophrenia, unspecified Plan Mr. Francis is a 28 year-old male with hx of schizophrenia who was brought on sect 12a after mother called police due to verbal threat and posturing due to increase paranoid delusions. Pt is well known to this unit. He has tried while on the unit good therapeutic dose of olanzapine and haldol with minimal therapeutic benefit. We discussed trial of clozaril, which he agrees but does not think will work given that he has tried other medications and this point he states these are not voices, they are doing this to me, I don't need medication, you need to stop them! PLAN 1. Admit to [facility], CV 15 minutes checks for safety 2. start clozaril, will have to register to [facility]- clozaril 25mg po qhs, increase by 25mg daily as tolerated. 3. aftercare planning 4. obtain collateral information. 07/24: Continue current management and treatment plan. Reason for continued inpatient stay Substantial Risk for: inability to function and rapid decompensation Time Spent With Patient Time: Total time managing care of this patient today ____ minutes.
[2023-07-24 19:30] VITALS: BP 132/71; PULSE 94; RESP 18; TEMP 36.6; O2SAT 96
[2023-07-24] MEDS: traZODone HCL 50 MG TABLET PO (22:36)
[2023-07-25 07:35] VITALS: BP 109/56; PULSE 88; RESP 14; TEMP 36.2; O2SAT 97
[2023-07-25] MEDS: OLANZapine 10 MG TABLET PO (08:51)
--- NOTE | 2023-07-25 14:46 | HO.PSYCHPN ---
Subjective Subjective Date of Service: 07/25/23 Reason For Visit: Psychosis Interim History: Pt slept most of the night. Sleeps on a mattress on the floor. He is mostly in bed. He isolates and is minimally interacting with peers or staff but pleasant on approach. He continues to report AH/VH. Pending registration in [facility] to start Clozaril. Review of Systems Review of Systems Yes all other systems are reviewed and are negative Mental Status Exam Mental Status Exam Narrative: Appearance: wearing hospital gown, laying in bed mattress in the floor as he often does when he comes to the unit. Behavior: cooperative Psychomotor: some moving feet constantly while laying in bed. no agitation or retardation noted Speech: clear, normal rate/rhythm/volume, spontaneous TP: linear TC: hearing voices, which is debilitating at times Mood: good Affect: somewhat frustrated with mother calling police and him being in the hospital. SI: denies HI: denies VH/AH: hearing voices of multiple people telling him things like be pickens or don't talk Delusions: thinks people from previous job are harrasing him Insight/judgment: fair x 2 Memory/cog: alert, oriented x 3. Diagnostics Vital Signs (24Hr): Vital Signs - 24 hr 07/24/23 19:30 07/25/23 07:35 Temperature 97.8 F 97.1 F Pulse Rate 94 88 Respiratory Rate 18 14 Blood Pressure 132/71 109/56 L Pulse Oximetry 96 97 Oxygen Delivery Method Room Air Room Air BMI result Body Mass Index 44.8 Labs 07/19/23 19:20 07/19/23 19:20 Medications Medications Current Medications Acetaminophen (Acetaminophen 325 Mg Tablet) 650 mg PO Q6H PRN PRN Reason: Headache/Pain Mild Scale (1-3) Al Hydroxide/Mg Hydroxide (Magnesium Hydrox/Alum Hydrox 30 Ml Oral.Susp) 30 ml PO Q6H PRN PRN Reason: Heartburn/Nausea Hydroxyzine HCl (Hydroxyzine Hcl 25 Mg Tablet) 25 mg PO Q6H PRN PRN Reason: Anxiety Magnesium Hydroxide (Milk Of Magnesia 30 Ml Oral.Susp) 30 ml PO DAILY PRN PRN Reason: Constipation Nicotine Polacrilex (Nicotine Polacrilex 2 Mg Gum) 4 mg BUCCAL Q2H PRN PRN Reason: Nicotine Cravings Olanzapine (Olanzapine 10 Mg Tablet) 10 mg PO DAILY KYLE Last Admin: 07/25/23 08:51 Dose: 10 mg Trazodone HCl (Trazodone Hcl 50 Mg Tablet) 50 mg PO BEDTIME MRX1 PRN PRN Reason: Insomnia Last Admin: 07/24/23 22:36 Dose: 50 mg Allergies Allergies Allergy/AdvReac Type Severity Reaction Status Date / Time Penicillins [PENICILLINS] Allergy Unknown RASH Verified 05/19/21 07:39 Assessment & Plan Assessment & Plan (1) Schizophrenia: Status: Acute Code(s): F20.9 - Schizophrenia, unspecified Plan Mr. Francis is a 28 year-old male with hx of schizophrenia who was brought on sect 12a after mother called police due to verbal threat and posturing due to increase paranoid delusions. Pt is well known to this unit. He has tried while on the unit good therapeutic dose of olanzapine and haldol with minimal therapeutic benefit. We discussed trial of clozaril, which he agrees but does not think will work given that he has tried other medications and this point he states these are not voices, they are doing this to me, I don't need medication, you need to stop them! PLAN 1. Admit to [facility], CV 15 minutes checks for safety 2. start clozaril, will have to register to [facility]- clozaril 25mg po qhs, increase by 25mg daily as tolerated. 3. aftercare planning 4. obtain collateral information. 07/24: Continue current management and treatment plan. 07/25: continue current management and treatment plan. Reason for continued inpatient stay Substantial Risk for: inability to function and rapid decompensation Time Spent With Patient Time: Total time managing care of this patient today ____ minutes.
[2023-07-25 20:03] VITALS: BP 125/69; PULSE 98; RESP 18; TEMP 36.3; O2SAT 97
[2023-07-25] MEDS: traZODone HCL 50 MG TABLET PO (22:47)
[2023-07-26 07:30] VITALS: BP 112/61; PULSE 79; RESP 22; TEMP 36.2; O2SAT 97
[2023-07-26] MEDS: OLANZapine 10 MG TABLET PO (09:16)
--- NOTE | 2023-07-26 15:53 | HO.PSYCHPN ---
Subjective Subjective Date of Service: 07/26/23 Reason For Visit: Psychosis Interim History: says his mother is fabricating evidence against him to get him into the hospital and there is nothing wrong with him. amenable to start clozapine nevertheless. reports he is feeling good. per staff, withdrawn. slept all shift. taking meds. c/o some restlessness. pacing. not attending groups. slept about 8 hours. Mental Status Exam Mental Status Exam Narrative: Pt is alert and oriented; behavior is cooperative and calm; dressed in casual attire; eye contact appropriate; Speech is nml amount, loudness, rate, and prosody; no psychomotor agitation/retardation present; thought process is organized and goal directed; Thought content sig for paranoid delusions; mood feeling good; no SI/SIBI/HI/AVH expressed. Patients insight and judgment are impaired. Diagnostics Vital Signs (24Hr): Vital Signs - 24 hr 07/25/23 20:03 07/26/23 07:30 Temperature 97.3 F 97.1 F Pulse Rate 98 79 Respiratory Rate 18 22 H Blood Pressure 125/69 112/61 Pulse Oximetry 97 97 Oxygen Delivery Method Room Air Room Air BMI result Body Mass Index 44.8 Labs 07/19/23 19:20 07/19/23 19:20 Medications Medications Current Medications Acetaminophen (Acetaminophen 325 Mg Tablet) 650 mg PO Q6H PRN PRN Reason: Headache/Pain Mild Scale (1-3) Al Hydroxide/Mg Hydroxide (Magnesium Hydrox/Alum Hydrox 30 Ml Oral.Susp) 30 ml PO Q6H PRN PRN Reason: Heartburn/Nausea Hydroxyzine HCl (Hydroxyzine Hcl 25 Mg Tablet) 25 mg PO Q6H PRN PRN Reason: Anxiety Magnesium Hydroxide (Milk Of Magnesia 30 Ml Oral.Susp) 30 ml PO DAILY PRN PRN Reason: Constipation Nicotine Polacrilex (Nicotine Polacrilex 2 Mg Gum) 4 mg BUCCAL Q2H PRN PRN Reason: Nicotine Cravings Olanzapine (Olanzapine 10 Mg Tablet) 10 mg PO DAILY [facility] Last Admin: 07/26/23 09:16 Dose: 10 mg Trazodone HCl (Trazodone Hcl 50 Mg Tablet) 50 mg PO BEDTIME MRX1 PRN PRN Reason: Insomnia Last Admin: 07/25/23 22:47 Dose: 50 mg Allergies Allergies Allergy/AdvReac Type Severity Reaction Status Date / Time Penicillins [PENICILLINS] Allergy Unknown RASH Verified 05/19/21 07:39 Assessment & Plan Assessment & Plan (1) Schizophrenia: Status: Acute Code(s): F20.9 - Schizophrenia, unspecified Plan Mr. Francis is a 28 year-old male with hx of schizophrenia who was brought on sect 12a after mother called police due to verbal threat and posturing due to increase paranoid delusions. Pt is well known to this unit. He has tried while on the unit good therapeutic dose of olanzapine and haldol with minimal therapeutic benefit. We discussed trial of clozaril, which he agrees but does not think will work given that he has tried other medications and this point he states these are not voices, they are doing this to me, I don't need medication, you need to stop them! PLAN 1. Admit to M3, CV 15 minutes checks for safety 2. start clozaril, will have to register to [facility]- clozaril 25mg po qhs, increase by 25mg daily as tolerated. 3. aftercare planning 4. obtain collateral information. 07/24: Continue current management and treatment plan. 07/25: continue current management and treatment plan. 07/26: pt registered with [facility]. start clozapine 12.5 mg tonight. DC olanzapine. Reason for continued inpatient stay Substantial Risk for: harm to others, inability to function and rapid decompensation Time Spent With Patient Time: Total time managing care of this patient today __35__ minutes.
[2023-07-26 16:37] LABS: Neut%MD 51.6 %; Neutrophils Absolute Auto 3.9 x10*3/uL (2.0-8.3); WBCANC 7.5 X10*3/uL
[2023-07-26 19:14] VITALS: BP 109/57; PULSE 93; RESP 16; TEMP 36.4; O2SAT 96
[2023-07-26] MEDS: cloZAPine 25 MG TABLET 12.5 MG PO (22:35)
[2023-07-26] MEDS: traZODone HCL 50 MG TABLET PO (22:36)
[2023-07-27 06:00] VITALS: BP 114/58; PULSE 79; RESP 16; TEMP 36.6; O2SAT 97
--- NOTE | 2023-07-27 13:28 | HO.PSYCHPN ---
Subjective Subjective Date of Service: 07/27/23 Reason For Visit: Psychosis Interim History: lying on mattress on the floor, rousable. calm, cooperative. some mild irritation at remaining in the hospital and getting medicated. states he either doesn't have or has minimal schizophrenia and if anyone needs mental helth treatment it is his mother. nevertheless, agreeable to titrate clozapine upward. per staff, taking meds. started clozapine last NOC. pacing eves/NOC shift. slept about 8 hours. Mental Status Exam Mental Status Exam Narrative: Pt is alert and oriented; behavior is cooperative and calm; dressed in casual attire; eye contact appropriate; Speech is nml amount, loudness, rate, and prosody; no psychomotor agitation/retardation present; thought process is organized and goal directed; Thought content sig for paranoid delusions; mood not assessed, no SI/SIBI/HI/AVH expressed. Patients insight and judgment are impaired. Diagnostics Vital Signs (24Hr): Vital Signs - 24 hr 07/26/23 19:14 07/27/23 06:00 Temperature 97.5 F 97.9 F Pulse Rate 93 79 Respiratory Rate 16 16 Blood Pressure 109/57 L 114/58 L Pulse Oximetry 96 97 Oxygen Delivery Method Room Air Room Air BMI result Body Mass Index 44.8 Labs 07/19/23 19:20 07/19/23 19:20 Labs: Laboratory Results - last 48 hr 07/26/23 16:25 Absolute Neuts (auto) 3.9 Medications Medications Current Medications Acetaminophen (Acetaminophen 325 Mg Tablet) 650 mg PO Q6H PRN PRN Reason: Headache/Pain Mild Scale (1-3) Al Hydroxide/Mg Hydroxide (Magnesium Hydrox/Alum Hydrox 30 Ml Oral.Susp) 30 ml PO Q6H PRN PRN Reason: Heartburn/Nausea Clozapine (Clozapine 25 Mg Tablet) 12.5 mg PO BEDTIME KYLE Last Admin: 07/26/23 22:35 Dose: 12.5 mg Hydroxyzine HCl (Hydroxyzine Hcl 25 Mg Tablet) 25 mg PO Q6H PRN PRN Reason: Anxiety Magnesium Hydroxide (Milk Of Magnesia 30 Ml Oral.Susp) 30 ml PO DAILY PRN PRN Reason: Constipation Nicotine Polacrilex (Nicotine Polacrilex 2 Mg Gum) 4 mg BUCCAL Q2H PRN PRN Reason: Nicotine Cravings Trazodone HCl (Trazodone Hcl 50 Mg Tablet) 50 mg PO BEDTIME MRX1 PRN PRN Reason: Insomnia Last Admin: 07/26/23 22:36 Dose: 50 mg Allergies Allergies Allergy/AdvReac Type Severity Reaction Status Date / Time Penicillins [PENICILLINS] Allergy Unknown RASH Verified 05/19/21 07:39 Assessment & Plan Assessment & Plan (1) Schizophrenia: Status: Acute Code(s): F20.9 - Schizophrenia, unspecified Plan Mr. Francis is a 28 year-old male with hx of schizophrenia who was brought on sect 12a after mother called police due to verbal threat and posturing due to increase paranoid delusions. Pt is well known to this unit. He has tried while on the unit good therapeutic dose of olanzapine and haldol with minimal therapeutic benefit. We discussed trial of clozaril, which he agrees but does not think will work given that he has tried other medications and this point he states these are not voices, they are doing this to me, I don't need medication, you need to stop them! PLAN 1. Admit to [facility]3, CV 15 minutes checks for safety 2. start clozaril, will have to register to [facility]- clozaril 25mg po qhs, increase by 25mg daily as tolerated. 3. aftercare planning 4. obtain collateral information. 07/24: Continue current management and treatment plan. 07/25: continue current management and treatment plan. 07/26: pt registered with [facility]. start clozapine 12.5 mg tonight. DC olanzapine. 07/27: denies mental illness. increase clozapine to 25 mg QHS as of tonight. paranoid delusions. Reason for continued inpatient stay Substantial Risk for: harm to others, inability to function and rapid decompensation Time Spent With Patient Time: Total time managing care of this patient today __25__ minutes.
[2023-07-27 20:00] VITALS: BP 127/70; PULSE 110; RESP 16; TEMP 36.4; O2SAT 95
[2023-07-27] MEDS: cloZAPine 25 MG TABLET PO (20:51)
[2023-07-27] MEDS: traZODone HCL 50 MG TABLET PO (22:45)
[2023-07-28 07:30] VITALS: BP 109/58; PULSE 76; RESP 16; TEMP 36.5; O2SAT 97
--- NOTE | 2023-07-28 14:14 | HO.PSYCHPN ---
Subjective Subjective Date of Service: 07/28/23 Reason For Visit: Psychosis Interim History: in bed, rousable. calm, cooperative. concerned about being too sedated for work on clozaril, reminded again of once daily dosing, which appears to put his mind at ease. agreeable to increase dosing to 50 mg as of tonight. per staff, in bed days, pacing eves. intermittent AH. denies Sx. got PRN trazodone last night. slept about 6 hours. Mental Status Exam Mental Status Exam Narrative: Pt is alert and oriented; behavior is cooperative and calm; dressed in casual attire; eye contact appropriate; Speech is nml amount, loudness, rate, and prosody; no psychomotor agitation/retardation present; thought process is organized and goal directed; Thought content sig for paranoid delusions; mood not assessed, no SI/SIBI/HI/AVH expressed. Patients insight and judgment are impaired. Diagnostics Vital Signs (24Hr): Vital Signs - 24 hr 07/27/23 20:00 07/28/23 07:30 Temperature 97.5 F 97.7 F Pulse Rate 110 H 76 Respiratory Rate 16 16 Blood Pressure 127/70 109/58 L Pulse Oximetry 95 97 Oxygen Delivery Method Room Air Room Air BMI result Body Mass Index 44.8 Labs 07/19/23 19:20 07/19/23 19:20 Labs: Laboratory Results - last 48 hr 07/26/23 16:25 Absolute Neuts (auto) 3.9 Medications Medications Current Medications Acetaminophen (Acetaminophen 325 Mg Tablet) 650 mg PO Q6H PRN PRN Reason: Headache/Pain Mild Scale (1-3) Al Hydroxide/Mg Hydroxide (Magnesium Hydrox/Alum Hydrox 30 Ml Oral.Susp) 30 ml PO Q6H PRN PRN Reason: Heartburn/Nausea Clozapine (Clozapine 25 Mg Tablet) 50 mg PO BEDTIME KYLE Hydroxyzine HCl (Hydroxyzine Hcl 25 Mg Tablet) 25 mg PO Q6H PRN PRN Reason: Anxiety Magnesium Hydroxide (Milk Of Magnesia 30 Ml Oral.Susp) 30 ml PO DAILY PRN PRN Reason: Constipation Nicotine Polacrilex (Nicotine Polacrilex 2 Mg Gum) 4 mg BUCCAL Q2H PRN PRN Reason: Nicotine Cravings Trazodone HCl (Trazodone Hcl 50 Mg Tablet) 50 mg PO BEDTIME MRX1 PRN PRN Reason: Insomnia Last Admin: 07/27/23 22:45 Dose: 50 mg Allergies Allergies Allergy/AdvReac Type Severity Reaction Status Date / Time Penicillins [PENICILLINS] Allergy Unknown RASH Verified 05/19/21 07:39 Assessment & Plan Assessment & Plan (1) Schizophrenia: Status: Acute Code(s): F20.9 - Schizophrenia, unspecified Plan Mr. Francis is a 28 year-old male with hx of schizophrenia who was brought on [facility] after mother called police due to verbal threat and posturing due to increase paranoid delusions. Pt is well known to this unit. He has tried while on the unit good therapeutic dose of olanzapine and haldol with minimal therapeutic benefit. We discussed trial of clozaril, which he agrees but does not think will work given that he has tried other medications and this point he states these are not voices, they are doing this to me, I don't need medication, you need to stop them! PLAN 1. Admit to M3, CV 15 minutes checks for safety 2. start clozaril, will have to register to [facility]- clozaril 25mg po qhs, increase by 25mg daily as tolerated. 3. aftercare planning 4. obtain collateral information. 07/24: Continue current management and treatment plan. 07/25: continue current management and treatment plan. 07/26: pt registered with [facility]. start clozapine 12.5 mg tonight. DC olanzapine. 07/27: denies mental illness. increase clozapine to 25 mg QHS as of tonight. paranoid delusions. 07/28: no change in presentation. increase clozapine to 50 mg QHS as of tonight. Reason for continued inpatient stay Substantial Risk for: harm to others, inability to function and rapid decompensation Time Spent With Patient Time: Total time managing care of this patient today __25__ minutes.
[2023-07-28 20:00] VITALS: BP 118/60; PULSE 100; RESP 16; TEMP 36.4; O2SAT 96
[2023-07-28] MEDS: cloZAPine 25 MG TABLET 50 MG PO (21:02)
[2023-07-28] MEDS: traZODone HCL 50 MG TABLET PO (21:04)
[2023-07-29 07:00] VITALS: BMI 45.8
[2023-07-29 07:36] VITALS: BP 93/51; PULSE 83; RESP 16; TEMP 36.2; O2SAT 98
--- NOTE | 2023-07-29 14:37 | HO.PSYCHPN ---
Subjective Subjective Date of Service: 07/29/23 Reason For Visit: Psychosis Interim History: lying on mattress on the floor. no change in presentation. informed of increase in clozapine for tonight. no requests or complaints. per staff, denies Sx. flat, isolative. pacing eves. preoccupied. slept about 7 hours. used traz at HS. Mental Status Exam Mental Status Exam Narrative: Pt is alert and oriented; behavior is cooperative and calm; dressed in casual attire; eye contact appropriate; Speech is nml amount, loudness, rate, and prosody; no psychomotor agitation/retardation present; thought process is organized and goal directed; Thought content sig for paranoid delusions; mood not assessed, no SI/SIBI/HI/AVH expressed. Patients insight and judgment are impaired. Diagnostics Vital Signs (24Hr): Vital Signs - 24 hr 07/28/23 20:00 07/29/23 07:36 Temperature 97.5 F 97.1 F Pulse Rate 100 83 Respiratory Rate 16 16 Blood Pressure 118/60 93/51 L Pulse Oximetry 96 98 Oxygen Delivery Method Room Air Room Air BMI result Body Mass Index 45.8 Labs 07/19/23 19:20 07/19/23 19:20 Medications Medications Current Medications Acetaminophen (Acetaminophen 325 Mg Tablet) 650 mg PO Q6H PRN PRN Reason: Headache/Pain Mild Scale (1-3) Al Hydroxide/Mg Hydroxide (Magnesium Hydrox/Alum Hydrox 30 Ml Oral.Susp) 30 ml PO Q6H PRN PRN Reason: Heartburn/Nausea Clozapine (Clozapine 25 Mg Tablet) 75 mg PO BEDTIME KYLE Hydroxyzine HCl (Hydroxyzine Hcl 25 Mg Tablet) 25 mg PO Q6H PRN PRN Reason: Anxiety Magnesium Hydroxide (Milk Of Magnesia 30 Ml Oral.Susp) 30 ml PO DAILY PRN PRN Reason: Constipation Nicotine Polacrilex (Nicotine Polacrilex 2 Mg Gum) 4 mg BUCCAL Q2H PRN PRN Reason: Nicotine Cravings Trazodone HCl (Trazodone Hcl 50 Mg Tablet) 50 mg PO BEDTIME MRX1 PRN PRN Reason: Insomnia Last Admin: 07/28/23 21:04 Dose: 50 mg Allergies Allergies Allergy/AdvReac Type Severity Reaction Status Date / Time Penicillins [PENICILLINS] Allergy Unknown RASH Verified 05/19/21 07:39 Assessment & Plan Assessment & Plan (1) Schizophrenia: Status: Acute Code(s): F20.9 - Schizophrenia, unspecified Plan Mr. Francis is a 28 year-old male with hx of schizophrenia who was brought on sect 12[facility] after mother called police due to verbal threat and posturing due to increase paranoid delusions. Pt is well known to this unit. He has tried while on the unit good therapeutic dose of olanzapine and haldol with minimal therapeutic benefit. We discussed trial of clozaril, which he agrees but does not think will work given that he has tried other medications and this point he states these are not voices, they are doing this to me, I don't need medication, you need to stop them! PLAN 1. Admit to M3, CV 15 minutes checks for safety 2. start clozaril, will have to register to [facility]- clozaril 25mg po qhs, increase by 25mg daily as tolerated. 3. aftercare planning 4. obtain collateral information. 07/24: Continue current management and treatment plan. 07/25: continue current management and treatment plan. 07/26: pt registered with [facility]. start clozapine 12.5 mg tonight. DC olanzapine. 07/27: denies mental illness. increase clozapine to 25 mg QHS as of tonight. paranoid delusions. 07/28: no change in presentation. increase clozapine to 50 mg QHS as of tonight. : no change in presentation. increase clozapine to 75 mg QHS as of tonight. Reason for continued inpatient stay Substantial Risk for: harm to others, inability to function and rapid decompensation Time Spent With Patient Time: Total time managing care of this patient today __25__ minutes.
[2023-07-29 20:10] VITALS: BP 121/85; PULSE 106; RESP 18; TEMP 36.6; O2SAT 96
[2023-07-29] MEDS: traZODone HCL 50 MG TABLET PO (20:40)
[2023-07-29] MEDS: cloZAPine 25 MG TABLET 75 MG PO (20:40)
[2023-07-30 08:25] VITALS: BP 106/57; PULSE 88; RESP 14; TEMP 35.6; O2SAT 97
--- NOTE | 2023-07-30 14:03 | HO.PSYCHPN ---
Subjective Subjective Date of Service: 07/30/23 Reason For Visit: Psychosis Interim History: no change in presentation. agreeable to increase clozaril dosing. per staff, isolative, withdrawn. Mental Status Exam Mental Status Exam Narrative: Pt is alert and oriented; behavior is cooperative and calm; dressed in casual attire; eye contact appropriate; Speech is nml amount, loudness, rate, and prosody; no psychomotor agitation/retardation present; thought process is organized and goal directed; Thought content sig for paranoid delusions; mood not assessed, no SI/SIBI/HI/AVH expressed. Patients insight and judgment are impaired. Diagnostics Vital Signs (24Hr): Vital Signs - 24 hr 07/29/23 20:10 07/30/23 08:25 Temperature 97.8 F 96.1 F L Pulse Rate 106 H 88 Respiratory Rate 18 14 Blood Pressure 121/85 106/57 L Pulse Oximetry 96 97 Oxygen Delivery Method Room Air Room Air BMI result Body Mass Index 45.8 Labs 07/19/23 19:20 07/19/23 19:20 Medications Medications Current Medications Acetaminophen (Acetaminophen 325 Mg Tablet) 650 mg PO Q6H PRN PRN Reason: Headache/Pain Mild Scale (1-3) Al Hydroxide/Mg Hydroxide (Magnesium Hydrox/Alum Hydrox 30 Ml Oral.Susp) 30 ml PO Q6H PRN PRN Reason: Heartburn/Nausea Clozapine (Clozapine 25 Mg Tablet) 75 mg PO BEDTIME KYLE Last Admin: 07/29/23 20:40 Dose: 75 mg Hydroxyzine HCl (Hydroxyzine Hcl 25 Mg Tablet) 25 mg PO Q6H PRN PRN Reason: Anxiety Magnesium Hydroxide (Milk Of Magnesia 30 Ml Oral.Susp) 30 ml PO DAILY PRN PRN Reason: Constipation Nicotine Polacrilex (Nicotine Polacrilex 2 Mg Gum) 4 mg BUCCAL Q2H PRN PRN Reason: Nicotine Cravings Trazodone HCl (Trazodone Hcl 50 Mg Tablet) 50 mg PO BEDTIME MRX1 PRN PRN Reason: Insomnia Last Admin: 07/29/23 20:40 Dose: 50 mg Allergies Allergies Allergy/AdvReac Type Severity Reaction Status Date / Time Penicillins [PENICILLINS] Allergy Unknown RASH Verified 05/19/21 07:39 Assessment & Plan Assessment & Plan (1) Schizophrenia: Status: Acute Code(s): F20.9 - Schizophrenia, unspecified Plan Mr. Francis is a 28 year-old male with hx of schizophrenia who was brought on sect 12a after mother called police due to verbal threat and posturing due to increase paranoid delusions. Pt is well known to this unit. He has tried while on the unit good therapeutic dose of olanzapine and haldol with minimal therapeutic benefit. We discussed trial of clozaril, which he agrees but does not think will work given that he has tried other medications and this point he states these are not voices, they are doing this to me, I don't need medication, you need to stop them! PLAN 1. Admit to M3, CV 15 minutes checks for safety 2. start clozaril, will have to register to [facility]- clozaril 25mg po qhs, increase by 25mg daily as tolerated. 3. aftercare planning 4. obtain collateral information. 07/24: Continue current management and treatment plan. 07/25: continue current management and treatment plan. 07/26: pt registered with [facility]. start clozapine 12.5 mg tonight. DC olanzapine. 07/27: denies mental illness. increase clozapine to 25 mg QHS as of tonight. paranoid delusions. 07/28: no change in presentation. increase clozapine to 50 mg QHS as of tonight. : no change in presentation. increase clozapine to 75 mg QHS as of tonight. 07/29: no change in presentation. increase clozapine to 100 mg QHS as of tonight. Reason for continued inpatient stay Substantial Risk for: harm to others, inability to function and rapid decompensation Time Spent With Patient Time: Total time managing care of this patient today __25__ minutes.
[2023-07-30 20:10] VITALS: BP 130/74; PULSE 99; RESP 16; TEMP 36.1; O2SAT 97
[2023-07-30] MEDS: traZODone HCL 50 MG TABLET PO (21:51)
[2023-07-30] MEDS: cloZAPine 100 MG TABLET PO (21:51)
[2023-07-31 08:03] VITALS: BP 123/60; PULSE 99; RESP 14; TEMP 36; O2SAT 97
--- NOTE | 2023-07-31 16:16 | HO.PSYCHPN ---
Subjective Subjective Date of Service: 07/31/23 Reason For Visit: Psychosis Interim History: calm, cooperative. no change in presentation. amenable to increase clozaril tonight. per staff, in bed days, pacing eves. Mental Status Exam Mental Status Exam Narrative: Pt is alert and oriented; behavior is cooperative and calm; dressed in casual attire; eye contact appropriate; Speech is nml amount, loudness, rate, and prosody; no psychomotor agitation/retardation present; thought process is organized and goal directed; Thought content sig for paranoid delusions; mood not assessed, no SI/SIBI/HI/AVH expressed. Patients insight and judgment are impaired. Diagnostics Vital Signs (24Hr): Vital Signs - 24 hr 07/30/23 20:10 07/31/23 08:03 Temperature 96.9 F 96.8 F Pulse Rate 99 99 Respiratory Rate 16 14 Blood Pressure 130/74 123/60 Pulse Oximetry 97 97 Oxygen Delivery Method Room Air Room Air BMI result Body Mass Index 45.8 Labs 07/19/23 19:20 07/19/23 19:20 Medications Medications Current Medications Acetaminophen (Acetaminophen 325 Mg Tablet) 650 mg PO Q6H PRN PRN Reason: Pain, Mild (Pain Scale 1-3) Al Hydroxide/Mg Hydroxide (Magnesium Hydrox/Alum Hydrox 30 Ml Oral.Susp) 30 ml PO Q6H PRN PRN Reason: Heartburn/Nausea Clozapine (Clozapine 25 Mg Tablet) 125 mg PO BEDTIME KYLE Hydroxyzine HCl (Hydroxyzine Hcl 25 Mg Tablet) 25 mg PO Q6H PRN PRN Reason: Anxiety Magnesium Hydroxide (Milk Of Magnesia 30 Ml Oral.Susp) 30 ml PO DAILY PRN PRN Reason: Constipation Nicotine Polacrilex (Nicotine Polacrilex 2 Mg Gum) 4 mg BUCCAL Q2H PRN PRN Reason: Nicotine Cravings Trazodone HCl (Trazodone Hcl 50 Mg Tablet) 50 mg PO BEDTIME MRX1 PRN PRN Reason: Insomnia Last Admin: 07/30/23 21:51 Dose: 50 mg Allergies Allergies Allergy/AdvReac Type Severity Reaction Status Date / Time Penicillins [PENICILLINS] Allergy Unknown RASH Verified 05/19/21 07:39 Assessment & Plan Assessment & Plan (1) Schizophrenia: Status: Acute Code(s): F20.9 - Schizophrenia, unspecified Plan Mr. Francis is a 28 year-old male with hx of schizophrenia who was brought on sect 12a after mother called police due to verbal threat and posturing due to increase paranoid delusions. Pt is well known to this unit. He has tried while on the unit good therapeutic dose of olanzapine and haldol with minimal therapeutic benefit. We discussed trial of clozaril, which he agrees but does not think will work given that he has tried other medications and this point he states these are not voices, they are doing this to me, I don't need medication, you need to stop them! PLAN 1. Admit to M3, CV 15 minutes checks for safety 2. start clozaril, will have to register to [facility]- clozaril 25mg po qhs, increase by 25mg daily as tolerated. 3. aftercare planning 4. obtain collateral information. 07/24: Continue current management and treatment plan. 07/25: continue current management and treatment plan. 07/26: pt registered with [facility]. start clozapine 12.5 mg tonight. DC olanzapine. 07/27: denies mental illness. increase clozapine to 25 mg QHS as of tonight. paranoid delusions. 07/28: no change in presentation. increase clozapine to 50 mg QHS as of tonight. : no change in presentation. increase clozapine to 75 mg QHS as of tonight. 07/29: no change in presentation. increase clozapine to 100 mg QHS as of tonight. 07/30: no change in presentation. increase clozapine to 125 mg QHS as of tonight. Reason for continued inpatient stay Substantial Risk for: harm to others, inability to function and rapid decompensation Time Spent With Patient Time: Total time managing care of this patient today ____ minutes.
[2023-07-31 19:57] VITALS: BP 128/78; PULSE 111; RESP 18; TEMP 36.3; O2SAT 98
[2023-07-31] MEDS: traZODone HCL 50 MG TABLET PO (22:09)
[2023-07-31] MEDS: cloZAPine 25 MG TABLET 125 MG PO (22:09)
[2023-08-01 08:43] VITALS: BP 104/68; PULSE 93; RESP 20; TEMP 36; O2SAT 96
--- NOTE | 2023-08-01 14:35 | HO.PSYCHPN ---
Subjective Subjective Date of Service: 08/01/23 Reason For Visit: Psychosis Interim History: stable, no change. informed of titration to 150 mg tonight for clozaril. per staff, talking to roommate a lot yesterday. Mental Status Exam Mental Status Exam Narrative: Pt is alert and oriented; behavior is cooperative and calm; dressed in casual attire; eye contact appropriate; Speech is nml amount, loudness, rate, and prosody; no psychomotor agitation/retardation present; thought process is organized and goal directed; Thought content sig for paranoid delusions; mood not assessed, no SI/SIBI/HI/AVH expressed. Patients insight and judgment are impaired. Diagnostics Vital Signs (24Hr): Vital Signs - 24 hr 07/31/23 19:57 08/01/23 08:43 Temperature 97.4 F 96.8 F Pulse Rate 111 H 93 Respiratory Rate 18 20 Blood Pressure 128/78 104/68 Pulse Oximetry 98 96 Oxygen Delivery Method Room Air Room Air BMI result Body Mass Index 45.8 Labs 07/19/23 19:20 07/19/23 19:20 Medications Medications Current Medications Acetaminophen (Acetaminophen 325 Mg Tablet) 650 mg PO Q6H PRN PRN Reason: Pain, Mild (Pain Scale 1-3) Al Hydroxide/Mg Hydroxide (Magnesium Hydrox/Alum Hydrox 30 Ml Oral.Susp) 30 ml PO Q6H PRN PRN Reason: Heartburn/Nausea Clozapine (Clozapine 25 Mg Tablet) 125 mg PO BEDTIME KYLE Last Admin: 07/31/23 22:09 Dose: 125 mg Hydroxyzine HCl (Hydroxyzine Hcl 25 Mg Tablet) 25 mg PO Q6H PRN PRN Reason: Anxiety Magnesium Hydroxide (Milk Of Magnesia 30 Ml Oral.Susp) 30 ml PO DAILY PRN PRN Reason: Constipation Nicotine Polacrilex (Nicotine Polacrilex 2 Mg Gum) 4 mg BUCCAL Q2H PRN PRN Reason: Nicotine Cravings Trazodone HCl (Trazodone Hcl 50 Mg Tablet) 50 mg PO BEDTIME MRX1 PRN PRN Reason: Insomnia Last Admin: 07/31/23 22:09 Dose: 50 mg Allergies Allergies Allergy/AdvReac Type Severity Reaction Status Date / Time Penicillins [PENICILLINS] Allergy Unknown RASH Verified 05/19/21 07:39 Assessment & Plan Assessment & Plan (1) Schizophrenia: Status: Acute Code(s): F20.9 - Schizophrenia, unspecified Plan Mr. Francis is a 28 year-old male with hx of schizophrenia who was brought on sect 12[facility] after mother called police due to verbal threat and posturing due to increase paranoid delusions. Pt is well known to this unit. He has tried while on the unit good therapeutic dose of olanzapine and haldol with minimal therapeutic benefit. We discussed trial of clozaril, which he agrees but does not think will work given that he has tried other medications and this point he states these are not voices, they are doing this to me, I don't need medication, you need to stop them! PLAN 1. Admit to M3, CV 15 minutes checks for safety 2. start clozaril, will have to register to [facility]- clozaril 25mg po qhs, increase by 25mg daily as tolerated. 3. aftercare planning 4. obtain collateral information. 07/24: Continue current management and treatment plan. 07/25: continue current management and treatment plan. 07/26: pt registered with [facility]. start clozapine 12.5 mg tonight. DC olanzapine. 07/27: denies mental illness. increase clozapine to 25 mg QHS as of tonight. paranoid delusions. 07/28: no change in presentation. increase clozapine to 50 mg QHS as of tonight. : no change in presentation. increase clozapine to 75 mg QHS as of tonight. 07/29: no change in presentation. increase clozapine to 100 mg QHS as of tonight. 07/30: no change in presentation. increase clozapine to 125 mg QHS as of tonight. 07/31: no change in presentation. increase clozapine to 150 mg QHS as of tonight. Reason for continued inpatient stay Substantial Risk for: harm to others, inability to function and rapid decompensation Time Spent With Patient Time: Total time managing care of this patient today ____ minutes.
[2023-08-01 21:15] VITALS: BP 120/60; PULSE 113; RESP 16; TEMP 36.4; O2SAT 96
[2023-08-01] MEDS: cloZAPine 25 MG TABLET 150 MG PO (21:21)
[2023-08-01] MEDS: traZODone HCL 50 MG TABLET PO (21:21)
[2023-08-01 23:29] VITALS: BP 126/60; PULSE 110; RESP 16; O2SAT 97
[2023-08-01 23:30] VITALS: BP 128/60; PULSE 113; RESP 16; O2SAT 96
[2023-08-02 07:30] VITALS: BP 117/64; PULSE 91; RESP 16; TEMP 36.4; O2SAT 97
[2023-08-02 08:55] LABS: Neut%MD 49.5 %; Neutrophils Absolute Auto 4.4 x10*3/uL (2.0-8.3); WBCANC 8.8 X10*3/uL
--- NOTE | 2023-08-02 13:54 | HO.PSYCHPN ---
Subjective Subjective Date of Service: 08/02/23 Reason For Visit: Psychosis Interim History: calm, cooperative. concerned about reducing trazodone dosing, believes he will be up all night pacing if it is decreased. MD suggests to decrease by only 25 mg, pt reluctantly agrees. MD also suggests holding clozapine at present dosing for now, as pt was dizzy last night. per staff, not attending groups. brighter, more social interactions. sitting with peers and watching TV. c/o dizziness last NOC, feeling drunk. orthostatic VS WNL, but pt was tachycardic at 114 bpm. Mental Status Exam Mental Status Exam Narrative: Pt is alert and oriented; behavior is cooperative and calm; dressed in casual attire; eye contact appropriate; Speech is nml amount, loudness, rate, and prosody; no psychomotor agitation/retardation present; thought process is organized and goal directed; Thought content sig for paranoid delusions; mood not assessed, no SI/SIBI/HI/AVH expressed. Patients insight and judgment are impaired. Diagnostics Vital Signs (24Hr): Vital Signs - 24 hr 08/01/23 21:15 08/01/23 23:29 08/01/23 23:30 Temperature 97.6 F Pulse Rate 113 H 110 H 113 H Respiratory Rate 16 16 16 Blood Pressure 120/60 126/60 128/60 Pulse Oximetry 96 97 96 Oxygen Delivery Method Room Air Room Air Room Air 08/02/23 07:30 Temperature 97.6 F Pulse Rate 91 Respiratory Rate 16 Blood Pressure 117/64 Pulse Oximetry 97 Oxygen Delivery Method Room Air BMI result Body Mass Index 45.8 Labs 07/19/23 19:20 07/19/23 19:20 Labs: Laboratory Results - last 48 hr 08/02/23 08:48 Absolute Neuts (auto) 4.4 Medications Medications Current Medications Acetaminophen (Acetaminophen 325 Mg Tablet) 650 mg PO Q6H PRN PRN Reason: Pain, Mild (Pain Scale 1-3) Al Hydroxide/Mg Hydroxide (Magnesium Hydrox/Alum Hydrox 30 Ml Oral.Susp) 30 ml PO Q6H PRN PRN Reason: Heartburn/Nausea Clozapine (Clozapine 25 Mg Tablet) 150 mg PO BEDTIME KYLE Last Admin: 08/01/23 21:21 Dose: 150 mg Magnesium Hydroxide (Milk Of Magnesia 30 Ml Oral.Susp) 30 ml PO DAILY PRN PRN Reason: Constipation Nicotine Polacrilex (Nicotine Polacrilex 2 Mg Gum) 4 mg BUCCAL Q2H PRN PRN Reason: Nicotine Cravings Trazodone HCl (Trazodone Hcl 25 Mg Halftab) 25 mg PO BEDTIME MRX1 PRN PRN Reason: Insomnia Allergies Allergies Allergy/AdvReac Type Severity Reaction Status Date / Time Penicillins [PENICILLINS] Allergy Unknown RASH Verified 05/19/21 07:39 Assessment & Plan Assessment & Plan (1) Schizophrenia: Status: Acute Code(s): F20.9 - Schizophrenia, unspecified Plan Mr. Francis is a 28 year-old male with hx of schizophrenia who was brought on sect 12a after mother called police due to verbal threat and posturing due to increase paranoid delusions. Pt is well known to this unit. He has tried while on the unit good therapeutic dose of olanzapine and haldol with minimal therapeutic benefit. We discussed trial of clozaril, which he agrees but does not think will work given that he has tried other medications and this point he states these are not voices, they are doing this to me, I don't need medication, you need to stop them! PLAN 1. Admit to M3, CV 15 minutes checks for safety 2. start clozaril, will have to register to [facility]- clozaril 25mg po qhs, increase by 25mg daily as tolerated. 3. aftercare planning 4. obtain collateral information. 07/24: Continue current management and treatment plan. 07/25: continue current management and treatment plan. 07/26: pt registered with [facility]. start clozapine 12.5 mg tonight. DC olanzapine. 07/27: denies mental illness. increase clozapine to 25 mg QHS as of tonight. paranoid delusions. 07/28: no change in presentation. increase clozapine to 50 mg QHS as of tonight. : no change in presentation. increase clozapine to 75 mg QHS as of tonight. 07/29: no change in presentation. increase clozapine to 100 mg QHS as of tonight. 07/30: no change in presentation. increase clozapine to 125 mg QHS as of tonight. 07/31: no change in presentation. increase clozapine to 150 mg QHS as of tonight. 08/01: episode of dizziness and tachycardia last NOC. orthostatic WS WNL. decrease trazodone from 50 mg to 25 mg QHS. keep clozapine dosing at 150 mg QHS for now. per staff, pt has been more social and less isolative in the past day. Reason for continued inpatient stay Substantial Risk for: harm to others, inability to function and rapid decompensation Time Spent With Patient Time: Total time managing care of this patient today ____ minutes.
[2023-08-02] MEDS: cloZAPine 25 MG TABLET 150 MG PO (21:40)
--- NOTE | 2023-08-02 21:42 | PC.NURSE ---
CLOZARIL-ONLY ACCEPTED 100MG OF HIS HS 150MG DOSE OF CLOZARIL.
[2023-08-02 21:44] VITALS: BP 132/60; PULSE 118; RESP 16; TEMP 36; O2SAT 98
[2023-08-02] MEDS: traZODone HCL 25 MG HALFTAB PO (23:07)
[2023-08-03 08:10] VITALS: BP 126/56; PULSE 100; RESP 18; TEMP 35.4; O2SAT 95
--- NOTE | 2023-08-03 15:02 | HO.PSYCHPN ---
Subjective Subjective Date of Service: 08/03/23 Reason For Visit: Psychosis Interim History: calm, cooperative. states he was getting dizzy on lower doses but didn't realize it was the medication until it got to 150. MD agrees to keep dosing the same for tonight but plan to increase tomorrow back to 125. per staff, denies Sx. pleasant, engages easily. w/draswn. guarded. in room most of the day. slightly more visible eves. Mental Status Exam Mental Status Exam Narrative: Pt is alert and oriented; behavior is cooperative and calm; dressed in casual attire; eye contact appropriate; Speech is nml amount, loudness, rate, and prosody; no psychomotor agitation/retardation present; thought process is organized and goal directed; Thought content sig for paranoid delusions; mood not assessed, no SI/SIBI/HI/AVH expressed. Patients insight and judgment are impaired. Diagnostics Vital Signs (24Hr): Vital Signs - 24 hr 08/02/23 21:44 08/03/23 08:10 Temperature 96.8 F 95.7 F L Pulse Rate 118 H 100 Respiratory Rate 16 18 Blood Pressure 132/60 126/56 L Pulse Oximetry 98 95 Oxygen Delivery Method Room Air Room Air BMI result Body Mass Index 45.8 Labs 07/19/23 19:20 07/19/23 19:20 Labs: Laboratory Results - last 48 hr 08/02/23 08:48 Absolute Neuts (auto) 4.4 Medications Medications Current Medications Acetaminophen (Acetaminophen 325 Mg Tablet) 650 mg PO Q6H PRN PRN Reason: Pain, Mild (Pain Scale 1-3) Al Hydroxide/Mg Hydroxide (Magnesium Hydrox/Alum Hydrox 30 Ml Oral.Susp) 30 ml PO Q6H PRN PRN Reason: Heartburn/Nausea Clozapine (Clozapine 25 Mg Tablet) 150 mg PO BEDTIME KYLE Last Admin: 08/02/23 21:40 Dose: 100 mg Magnesium Hydroxide (Milk Of Magnesia 30 Ml Oral.Susp) 30 ml PO DAILY PRN PRN Reason: Constipation Nicotine Polacrilex (Nicotine Polacrilex 2 Mg Gum) 4 mg BUCCAL Q2H PRN PRN Reason: Nicotine Cravings Trazodone HCl (Trazodone Hcl 25 Mg Halftab) 25 mg PO BEDTIME MRX1 PRN PRN Reason: Insomnia Last Admin: 08/02/23 23:07 Dose: 25 mg Allergies Allergies Allergy/AdvReac Type Severity Reaction Status Date / Time Penicillins [PENICILLINS] Allergy Unknown RASH Verified 05/19/21 07:39 Assessment & Plan Assessment & Plan (1) Schizophrenia: Status: Acute Code(s): F20.9 - Schizophrenia, unspecified Plan Mr. Francis is a 28 year-old male with hx of schizophrenia who was brought on [facility] after mother called police due to verbal threat and posturing due to increase paranoid delusions. Pt is well known to this unit. He has tried while on the unit good therapeutic dose of olanzapine and haldol with minimal therapeutic benefit. We discussed trial of clozaril, which he agrees but does not think will work given that he has tried other medications and this point he states these are not voices, they are doing this to me, I don't need medication, you need to stop them! PLAN 1. Admit to M3, CV 15 minutes checks for safety 2. start clozaril, will have to register to [facility]- clozaril 25mg po qhs, increase by 25mg daily as tolerated. 3. aftercare planning 4. obtain collateral information. 07/24: Continue current management and treatment plan. 07/25: continue current management and treatment plan. 07/26: pt registered with [facility]. start clozapine 12.5 mg tonight. DC olanzapine. 07/27: denies mental illness. increase clozapine to 25 mg QHS as of tonight. paranoid delusions. 07/28: no change in presentation. increase clozapine to 50 mg QHS as of tonight. : no change in presentation. increase clozapine to 75 mg QHS as of tonight. 07/29: no change in presentation. increase clozapine to 100 mg QHS as of tonight. 3: no change in presentation. increase clozapine to 125 mg QHS as of tonight. 3: no change in presentation. increase clozapine to 150 mg QHS as of tonight. 3: episode of dizziness and tachycardia last NOC. orthostatic WS WNL. decrease trazodone from 50 mg to 25 mg QHS. keep clozapine dosing at 150 mg QHS for now. per staff, pt has been more social and less isolative in the past day. 3: only took clozapine 100 last night, c/o it's making him dizzy. MD agrees to continue 100 again tonight, but then increase to 125 tomorrow night. no change in presentation. Reason for continued inpatient stay Substantial Risk for: harm to others, inability to function and rapid decompensation Time Spent With Patient Time: Total time managing care of this patient today __25__ minutes.
[2023-08-03 21:15] VITALS: BP 127/68; PULSE 114; RESP 16; TEMP 36.4; O2SAT 96
[2023-08-03] MEDS: cloZAPine 25 MG TABLET 150 MG PO (21:31)
[2023-08-03] MEDS: traZODone HCL 25 MG HALFTAB PO (21:32)
--- NOTE | 2023-08-03 21:55 | PC.NURSE ---
refused 50 mg of 150 mg dose of clozaril.
[2023-08-04 09:25] VITALS: BP 121/60; PULSE 95; RESP 20; TEMP 36.4; O2SAT 96
--- NOTE | 2023-08-04 13:46 | HO.PSYCHPN ---
Subjective Subjective Date of Service: 08/04/23 Reason For Visit: Psychosis Interim History: calm, cooperative. had 100 mg clozaril last night. states he had no dizziness and so is OK to increase to 125 tonight. no other complaints or requests. per staff says he's just chillin. not attending groups. slept well. Mental Status Exam Mental Status Exam Narrative: Pt is alert and oriented; behavior is cooperative and calm; dressed in casual attire; eye contact appropriate; Speech is nml amount, loudness, rate, and prosody; no psychomotor agitation/retardation present; thought process is organized and goal directed; Thought content sig for paranoid delusions; mood not assessed, no SI/SIBI/HI/AVH expressed. Patients insight and judgment are impaired. Diagnostics Vital Signs (24Hr): Vital Signs - 24 hr 08/03/23 21:15 08/04/23 09:25 Temperature 97.6 F 97.5 F Pulse Rate 114 H 95 Respiratory Rate 16 20 Blood Pressure 127/68 121/60 Pulse Oximetry 96 96 Oxygen Delivery Method Room Air Room Air BMI result Body Mass Index 45.8 Labs 07/19/23 19:20 07/19/23 19:20 Medications Medications Current Medications Acetaminophen (Acetaminophen 325 Mg Tablet) 650 mg PO Q6H PRN PRN Reason: Pain, Mild (Pain Scale 1-3) Al Hydroxide/Mg Hydroxide (Magnesium Hydrox/Alum Hydrox 30 Ml Oral.Susp) 30 ml PO Q6H PRN PRN Reason: Heartburn/Nausea Clozapine (Clozapine 25 Mg Tablet) 150 mg PO BEDTIME KYLE Last Admin: 08/03/23 21:31 Dose: 100 mg Magnesium Hydroxide (Milk Of Magnesia 30 Ml Oral.Susp) 30 ml PO DAILY PRN PRN Reason: Constipation Nicotine Polacrilex (Nicotine Polacrilex 2 Mg Gum) 4 mg BUCCAL Q2H PRN PRN Reason: Nicotine Cravings Trazodone HCl (Trazodone Hcl 25 Mg Halftab) 25 mg PO BEDTIME MRX1 PRN PRN Reason: Insomnia Last Admin: 08/03/23 21:32 Dose: 25 mg Allergies Allergies Allergy/AdvReac Type Severity Reaction Status Date / Time Penicillins [PENICILLINS] Allergy Unknown RASH Verified 05/19/21 07:39 Assessment & Plan Assessment & Plan (1) Schizophrenia: Status: Acute Code(s): F20.9 - Schizophrenia, unspecified Plan Mr. Francis is a 28 year-old male with hx of schizophrenia who was brought on [facility] after mother called police due to verbal threat and posturing due to increase paranoid delusions. Pt is well known to this unit. He has tried while on the unit good therapeutic dose of olanzapine and haldol with minimal therapeutic benefit. We discussed trial of clozaril, which he agrees but does not think will work given that he has tried other medications and this point he states these are not voices, they are doing this to me, I don't need medication, you need to stop them! PLAN 1. Admit to M3, CV 15 minutes checks for safety 2. start clozaril, will have to register to [facility]- clozaril 25mg po qhs, increase by 25mg daily as tolerated. 3. aftercare planning 4. obtain collateral information. 07/24: Continue current management and treatment plan. 07/25: continue current management and treatment plan. 07/26: pt registered with [facility]. start clozapine 12.5 mg tonight. DC olanzapine. 07/27: denies mental illness. increase clozapine to 25 mg QHS as of tonight. paranoid delusions. 07/28: no change in presentation. increase clozapine to 50 mg QHS as of tonight. : no change in presentation. increase clozapine to 75 mg QHS as of tonight. 07/29: no change in presentation. increase clozapine to 100 mg QHS as of tonight. 07/30: no change in presentation. increase clozapine to 125 mg QHS as of tonight. 07/31: no change in presentation. increase clozapine to 150 mg QHS as of tonight. 3: episode of dizziness and tachycardia last NOC. orthostatic WS WNL. decrease trazodone from 50 mg to 25 mg QHS. keep clozapine dosing at 150 mg QHS for now. per staff, pt has been more social and less isolative in the past day. 08/02: only took clozapine 100 last night, c/o it's making him dizzy. agrees to continue 100 again tonight, but then increase to 125 tomorrow night. no change in presentation. 08/03: had clozaril 100 again last night, no dizziness. agrees to go up to 125 tonight. stable presentation. Reason for continued inpatient stay Substantial Risk for: harm to others, inability to function and rapid decompensation Time Spent With Patient Time: Total time managing care of this patient today __25__ minutes.
[2023-08-04 19:45] VITALS: BP 114/60; PULSE 108; RESP 16; TEMP 36.1; O2SAT 97
[2023-08-04] MEDS: cloZAPine 100 MG, cloZAPine 25 MG 125 MG PO (21:22)
[2023-08-04] MEDS: traZODone HCL 25 MG HALFTAB PO (21:22)
[2023-08-05 08:35] VITALS: BP 107/59; PULSE 91; RESP 18; TEMP 36.1; O2SAT 95
--- NOTE | 2023-08-05 11:11 | HO.PSYCHPN ---
Subjective Subjective Date of Service: 08/05/23 Reason For Visit: Psychosis Subjective Notes: Conditional Voluntary Interim History: Pt mostly in the room. He reports less paranoid delusions towards his mother. He continues to report voices of people he worked with while in [place]. He reports less dizziness. He denies constipation or dry mouth with clozaril. No SI/HI. he reports less anxious mood, less intrusive thought which in the past he had reported these were signs of ADHD, but appears that less psychosis. Review of Systems Review of Systems Yes all other systems are reviewed and are negative Mental Status Exam Mental Status Exam Narrative: Pt is alert and oriented; behavior is cooperative and calm; dressed in casual attire; eye contact appropriate; Speech is nml amount, loudness, rate, and prosody; no psychomotor agitation/retardation present; thought process is organized and goal directed; Thought content sig for paranoid delusions; mood not assessed, no SI/SIBI/HI/AVH expressed. Patients insight and judgment are impaired. Diagnostics Vital Signs (24Hr): Vital Signs - 24 hr 08/04/23 19:45 08/05/23 08:35 Temperature 97 F 96.9 F Pulse Rate 108 H 91 Respiratory Rate 16 18 Blood Pressure 114/60 107/59 L Pulse Oximetry 97 95 Oxygen Delivery Method Room Air Room Air BMI result Body Mass Index 45.8 Labs 07/19/23 19:20 07/19/23 19:20 Medications Medications Current Medications Acetaminophen (Acetaminophen 325 Mg Tablet) 650 mg PO Q6H PRN PRN Reason: Pain, Mild (Pain Scale 1-3) Al Hydroxide/Mg Hydroxide (Magnesium Hydrox/Alum Hydrox 30 Ml Oral.Susp) 30 ml PO Q6H PRN PRN Reason: Heartburn/Nausea Clozapine 100 mg/ Clozapine 25 (mg) 125 mg PO BEDTIME KYLE Last Admin: 08/04/23 21:22 Dose: 125 mg Magnesium Hydroxide (Milk Of Magnesia 30 Ml Oral.Susp) 30 ml PO DAILY PRN PRN Reason: Constipation Nicotine Polacrilex (Nicotine Polacrilex 2 Mg Gum) 4 mg BUCCAL Q2H PRN PRN Reason: Nicotine Cravings Trazodone HCl (Trazodone Hcl 25 Mg Halftab) 25 mg PO BEDTIME MRX1 PRN PRN Reason: Insomnia Last Admin: 08/04/23 21:22 Dose: 25 mg Allergies Allergies Allergy/AdvReac Type Severity Reaction Status Date / Time Penicillins [PENICILLINS] Allergy Unknown RASH Verified 05/19/21 07:39 Assessment & Plan Assessment & Plan (1) Schizophrenia: Status: Acute Code(s): F20.9 - Schizophrenia, unspecified Plan Mr. Francis is a 28 year-old male with hx of schizophrenia who was brought on sect 12[facility] after mother called police due to verbal threat and posturing due to increase paranoid delusions. Pt is well known to this unit. He has tried while on the unit good therapeutic dose of olanzapine and haldol with minimal therapeutic benefit. We discussed trial of clozaril, which he agrees but does not think will work given that he has tried other medications and this point he states these are not voices, they are doing this to me, I don't need medication, you need to stop them! PLAN 1. Admit to M3, CV 15 minutes checks for safety 2. start clozaril, will have to register to [facility]- clozaril 25mg po qhs, increase by 25mg daily as tolerated. 3. aftercare planning 4. obtain collateral information. 07/24: Continue current management and treatment plan. 07/25: continue current management and treatment plan. 07/26: pt registered with [facility]. start clozapine 12.5 mg tonight. DC olanzapine. 07/27: denies mental illness. increase clozapine to 25 mg QHS as of tonight. paranoid delusions. 07/28: no change in presentation. increase clozapine to 50 mg QHS as of tonight. : no change in presentation. increase clozapine to 75 mg QHS as of tonight. 07/29: no change in presentation. increase clozapine to 100 mg QHS as of tonight. 3: no change in presentation. increase clozapine to 125 mg QHS as of tonight. 3: no change in presentation. increase clozapine to 150 mg QHS as of tonight. 3: episode of dizziness and tachycardia last NOC. orthostatic WS WNL. decrease trazodone from 50 mg to 25 mg QHS. keep clozapine dosing at 150 mg QHS for now. per staff, pt has been more social and less isolative in the past day. 08/02: only took clozapine 100 last night, c/o it's making him dizzy. MD agrees to continue 100 again tonight, but then increase to 125 tomorrow night. no change in presentation. 08/03: had clozaril 100 again last night, no dizziness. agrees to go up to 125 tonight. stable presentation. 08/04 continue tx. Reason for continued inpatient stay Substantial Risk for: inability to function Time Spent With Patient Time: Total time managing care of this patient today ____ minutes.
[2023-08-05 19:20] VITALS: BP 133/79; PULSE 123; RESP 18; TEMP 36.5; O2SAT 95
[2023-08-05] MEDS: cloZAPine 100 MG, cloZAPine 25 MG 125 MG PO (21:59)
[2023-08-05] MEDS: traZODone HCL 25 MG HALFTAB PO (21:59)
[2023-08-06 06:00] VITALS: BP 119/57; PULSE 92; RESP 16; TEMP 36.1; O2SAT 97
--- NOTE | 2023-08-06 15:47 | HO.PSYCHPN ---
Subjective Subjective Date of Service: 08/06/23 Reason For Visit: Psychosis Interim History: pt reports borderline dizziness feeling with 125 mg dose. MD agrees to leave dosing at 125 mg tonight and plan to titrate up as tolerated moving forward. per staff, no c/o dizziness at 125 mg yesterday. spending more time out of his room. [facility] visit scheduled for today. Mental Status Exam Mental Status Exam Narrative: Pt is alert and oriented; behavior is cooperative and calm; dressed in casual attire; eye contact appropriate; Speech is nml amount, loudness, rate, and prosody; no psychomotor agitation/retardation present; thought process is organized and goal directed; Thought content sig for paranoid delusions; mood not assessed, no SI/SIBI/HI/AVH expressed. Patients insight and judgment are impaired. Diagnostics Vital Signs (24Hr): Vital Signs - 24 hr 08/05/23 19:20 08/06/23 06:00 Temperature 97.7 F 96.9 F Pulse Rate 123 H 92 Respiratory Rate 18 16 Blood Pressure 133/79 119/57 L Pulse Oximetry 95 97 Oxygen Delivery Method Room Air Room Air BMI result Body Mass Index 45.8 Labs 07/19/23 19:20 07/19/23 19:20 Medications Medications Current Medications Acetaminophen (Acetaminophen 325 Mg Tablet) 650 mg PO Q6H PRN PRN Reason: Pain, Mild (Pain Scale 1-3) Al Hydroxide/Mg Hydroxide (Magnesium Hydrox/Alum Hydrox 30 Ml Oral.Susp) 30 ml PO Q6H PRN PRN Reason: Heartburn/Nausea Clozapine 100 mg/ Clozapine 25 (mg) 125 mg PO BEDTIME KYLE Last Admin: 08/05/23 21:59 Dose: 125 mg Magnesium Hydroxide (Milk Of Magnesia 30 Ml Oral.Susp) 30 ml PO DAILY PRN PRN Reason: Constipation Nicotine Polacrilex (Nicotine Polacrilex 2 Mg Gum) 4 mg BUCCAL Q2H PRN PRN Reason: Nicotine Cravings Trazodone HCl (Trazodone Hcl 25 Mg Halftab) 25 mg PO BEDTIME MRX1 PRN PRN Reason: Insomnia Last Admin: 08/05/23 21:59 Dose: 25 mg Allergies Allergies Allergy/AdvReac Type Severity Reaction Status Date / Time Penicillins [PENICILLINS] Allergy Unknown RASH Verified 05/19/21 07:39 Assessment & Plan Assessment & Plan (1) Schizophrenia: Status: Acute Code(s): F20.9 - Schizophrenia, unspecified Plan Mr. Francis is a 28 year-old male with hx of schizophrenia who was brought on sect 12a after mother called police due to verbal threat and posturing due to increase paranoid delusions. Pt is well known to this unit. He has tried while on the unit good therapeutic dose of olanzapine and haldol with minimal therapeutic benefit. We discussed trial of clozaril, which he agrees but does not think will work given that he has tried other medications and this point he states these are not voices, they are doing this to me, I don't need medication, you need to stop them! PLAN 1. Admit to M3, CV 15 minutes checks for safety 2. start clozaril, will have to register to [facility]- clozaril 25mg po qhs, increase by 25mg daily as tolerated. 3. aftercare planning 4. obtain collateral information. 07/24: Continue current management and treatment plan. 07/25: continue current management and treatment plan. 07/26: pt registered with [facility]. start clozapine 12.5 mg tonight. DC olanzapine. 07/27: denies mental illness. increase clozapine to 25 mg QHS as of tonight. paranoid delusions. 07/28: no change in presentation. increase clozapine to 50 mg QHS as of tonight. : no change in presentation. increase clozapine to 75 mg QHS as of tonight. 07/29: no change in presentation. increase clozapine to 100 mg QHS as of tonight. 07/30: no change in presentation. increase clozapine to 125 mg QHS as of tonight. 3: no change in presentation. increase clozapine to 150 mg QHS as of tonight. 3/: episode of dizziness and tachycardia last NOC. orthostatic WS WNL. decrease trazodone from 50 mg to 25 mg QHS. keep clozapine dosing at 150 mg QHS for now. per staff, pt has been more social and less isolative in the past day. 08/02: only took clozapine 100 last night, c/o it's making him dizzy. agrees to continue 100 again tonight, but then increase to 125 tomorrow night. no change in presentation. 08/03: had clozaril 100 again last night, no dizziness. agrees to go up to 125 tonight. stable presentation. 08/04 continue tx. 08/05: mild improvement in time spent out of room and socialization. continue clozapine 125 tonight due to pt c/o near dizziness last night. titrate up to 150 over w/e as tolerated. Reason for continued inpatient stay Substantial Risk for: harm to others, inability to function and rapid decompensation Time Spent With Patient Time: Total time managing care of this patient today __25__ minutes.
[2023-08-06] MEDS: traZODone HCL 25 MG HALFTAB PO (21:38)
[2023-08-06] MEDS: cloZAPine 100 MG, cloZAPine 25 MG 125 MG PO (21:38)
[2023-08-07 07:30] VITALS: BP 118/87; PULSE 112; RESP 16; TEMP 36.2; O2SAT 96
--- NOTE | 2023-08-07 11:11 | HO.PSYCHPN ---
Subjective Subjective Date of Service: 08/07/23 Reason For Visit: Psychosis Subjective Notes: Conditional Voluntary Interim History: met with patient. Discussed with Nursing. Has been flat. Her declining clozapine 150 mg, but accepting 125 mg. has been socializing a little more. Patient reports today that clozapine is hopeful, but unsure how. Does not want to increase dose above 125 mg as he reports feeling dizzy on higher doses. Adamantly denies hallucinations, paranoia or suicidal thoughts. Sleep has been okay. Denies feeling depressed. Regarding family , reports this was his stepbrother and that he was not that close to that particular stepbrother and therefore managing things well. Medication Compliance: Intermittent Side effects from medications: No Attending Groups: Intermittent Review of Systems Acute medical concerns: No Review of Systems Review of Systems Unremarkable Mental Status Exam Mental Status Exam Narrative: Pt is alert and oriented; behavior is cooperative and calm; dressed in casual attire; eye contact appropriate; Speech is nml amount, loudness, rate, and prosody; no psychomotor agitation/retardation present; thought process is organized and goal directed; Thought content - denied delusions. Denies feeling depressed. No SI/SIBI/HI/AVH expressed. Patients insight and judgment are impaired. Diagnostics Vital Signs (24Hr): Vital Signs - 24 hr 08/07/23 07:30 Temperature 97.1 F Pulse Rate 112 H Respiratory Rate 16 Blood Pressure 118/87 Pulse Oximetry 96 Oxygen Delivery Method Room Air BMI result Body Mass Index 45.8 Labs 07/19/23 19:20 07/19/23 19:20 Medications Medications Current Medications Acetaminophen (Acetaminophen 325 Mg Tablet) 650 mg PO Q6H PRN PRN Reason: Pain, Mild (Pain Scale 1-3) Al Hydroxide/Mg Hydroxide (Magnesium Hydrox/Alum Hydrox 30 Ml Oral.Susp) 30 ml PO Q6H PRN PRN Reason: Heartburn/Nausea Clozapine 100 mg/ Clozapine 25 (mg) 125 mg PO BEDTIME KYLE Last Admin: 08/06/23 21:38 Dose: 125 mg Magnesium Hydroxide (Milk Of Magnesia 30 Ml Oral.Susp) 30 ml PO DAILY PRN PRN Reason: Constipation Nicotine Polacrilex (Nicotine Polacrilex 2 Mg Gum) 4 mg BUCCAL Q2H PRN PRN Reason: Nicotine Cravings Trazodone HCl (Trazodone Hcl 25 Mg Halftab) 25 mg PO BEDTIME MRX1 PRN PRN Reason: Insomnia Last Admin: 08/06/23 21:38 Dose: 25 mg Allergies Allergies Allergy/AdvReac Type Severity Reaction Status Date / Time Penicillins [PENICILLINS] Allergy Unknown RASH Verified 05/19/21 07:39 Assessment & Plan Assessment & Plan (1) Schizophrenia: Status: Acute Code(s): F20.9 - Schizophrenia, unspecified Plan Mr. Francis is a 28 year-old male with hx of schizophrenia who was brought on sect 12a after mother called police due to verbal threat and posturing due to increase paranoid delusions. Pt is well known to this unit. He has tried while on the unit good therapeutic dose of olanzapine and haldol with minimal therapeutic benefit. We discussed trial of clozaril, which he agrees but does not think will work given that he has tried other medications and this point he states these are not voices, they are doing this to me, I don't need medication, you need to stop them! PLAN 1. Admit to M3, CV 15 minutes checks for safety 2. start clozaril, will have to register to [facility]- clozaril 25mg po qhs, increase by 25mg daily as tolerated. 3. aftercare planning 4. obtain collateral information. 07/24: Continue current management and treatment plan. 07/25: continue current management and treatment plan. 07/26: pt registered with [facility]. start clozapine 12.5 mg tonight. DC olanzapine. 07/27: denies mental illness. increase clozapine to 25 mg QHS as of tonight. paranoid delusions. 07/28: no change in presentation. increase clozapine to 50 mg QHS as of tonight. : no change in presentation. increase clozapine to 75 mg QHS as of tonight. 07/29: no change in presentation. increase clozapine to 100 mg QHS as of tonight. 3: no change in presentation. increase clozapine to 125 mg QHS as of tonight. 3: no change in presentation. increase clozapine to 150 mg QHS as of tonight. 3/4: episode of dizziness and tachycardia last NOC. orthostatic WS WNL. decrease trazodone from 50 mg to 25 mg QHS. keep clozapine dosing at 150 mg QHS for now. per staff, pt has been more social and less isolative in the past day. 3/5: only took clozapine 100 last night, c/o it's making him dizzy. MD agrees to continue 100 again tonight, but then increase to 125 tomorrow night. no change in presentation. 08/03: had clozaril 100 again last night, no dizziness. agrees to go up to 125 tonight. stable presentation. 08/04 continue tx. 08/05: mild improvement in time spent out of room and socialization. continue clozapine 125 tonight due to pt c/o near dizziness last night. titrate up to 150 over w/e as tolerated. 08/07/2023: Still declining clozapine 150 mg, but accepting 125 mg Reason for continued inpatient stay Substantial Risk for: rapid decompensation Time Spent With Patient Time: Total time managing care of this patient today ____ minutes.
[2023-08-07 20:30] VITALS: BP 120/71; PULSE 110; RESP 16; TEMP 36.4; O2SAT 97
[2023-08-07] MEDS: cloZAPine 100 MG, cloZAPine 25 MG 125 MG PO (21:54)
[2023-08-07] MEDS: traZODone HCL 25 MG HALFTAB PO (21:55)
[2023-08-08 07:40] VITALS: BP 105/59; PULSE 105; RESP 16; TEMP 36.4; O2SAT 99
--- NOTE | 2023-08-08 14:12 | HO.PSYCHPN ---
Subjective Subjective Date of Service: 08/08/23 Reason For Visit: Psychosis Subjective Notes: Conditional Voluntary Interim History: met with patient. Discussed with Nursing. No sig changes. Still declining clozapine 150 mg, but accepting 125 mg. Adamantly denies hallucinations, paranoia or suicidal thoughts. Sleep has been okay. Denies feeling depressed. Medication Compliance: Yes (declining 150mg clozapine, taking 125mg) Attending Groups: No Review of Systems Acute medical concerns: No Review of Systems Review of Systems Unremarkable Mental Status Exam Mental Status Exam Narrative: Pt is alert and oriented; behavior is cooperative and calm; dressed in casual attire; eye contact appropriate; Speech is nml amount, loudness, rate, and prosody; no psychomotor agitation/retardation present; thought process is organized and goal directed; Thought content - denied delusions. Denies feeling depressed. No SI/SIBI/HI/AVH expressed. Patients insight and judgment are impaired. Diagnostics Vital Signs (24Hr): Vital Signs - 24 hr 08/07/23 20:30 08/08/23 07:40 Temperature 97.5 F 97.5 F Pulse Rate 110 H 105 H Respiratory Rate 16 16 Blood Pressure 120/71 105/59 L Pulse Oximetry 97 99 Oxygen Delivery Method Room Air Room Air BMI result Body Mass Index 45.8 Labs 07/19/23 19:20 07/19/23 19:20 Medications Medications Current Medications Acetaminophen (Acetaminophen 325 Mg Tablet) 650 mg PO Q6H PRN PRN Reason: Pain, Mild (Pain Scale 1-3) Al Hydroxide/Mg Hydroxide (Magnesium Hydrox/Alum Hydrox 30 Ml Oral.Susp) 30 ml PO Q6H PRN PRN Reason: Heartburn/Nausea Clozapine 100 mg/ Clozapine 25 (mg) 125 mg PO BEDTIME [facility] Last Admin: 08/07/23 21:54 Dose: 125 mg Magnesium Hydroxide (Milk Of Magnesia 30 Ml Oral.Susp) 30 ml PO DAILY PRN PRN Reason: Constipation Nicotine Polacrilex (Nicotine Polacrilex 2 Mg Gum) 4 mg BUCCAL Q2H PRN PRN Reason: Nicotine Cravings Trazodone HCl (Trazodone Hcl 25 Mg Halftab) 25 mg PO BEDTIME MRX1 PRN PRN Reason: Insomnia Last Admin: 08/07/23 21:55 Dose: 25 mg Allergies Allergies Allergy/AdvReac Type Severity Reaction Status Date / Time Penicillins [PENICILLINS] Allergy Unknown RASH Verified 05/19/21 07:39 Assessment & Plan Assessment & Plan (1) Schizophrenia: Status: Acute Code(s): F20.9 - Schizophrenia, unspecified Plan Mr. Francis is a 28 year-old male with hx of schizophrenia who was brought on [facility] after mother called police due to verbal threat and posturing due to increase paranoid delusions. Pt is well known to this unit. He has tried while on the unit good therapeutic dose of olanzapine and haldol with minimal therapeutic benefit. We discussed trial of clozaril, which he agrees but does not think will work given that he has tried other medications and this point he states these are not voices, they are doing this to me, I don't need medication, you need to stop them! PLAN 1. Admit to M3, CV 15 minutes checks for safety 2. start clozaril, will have to register to [facility]- clozaril 25mg po qhs, increase by 25mg daily as tolerated. 3. aftercare planning 4. obtain collateral information. 07/24: Continue current management and treatment plan. 07/25: continue current management and treatment plan. 07/26: pt registered with [facility]. start clozapine 12.5 mg tonight. DC olanzapine. 07/27: denies mental illness. increase clozapine to 25 mg QHS as of tonight. paranoid delusions. 07/28: no change in presentation. increase clozapine to 50 mg QHS as of tonight. : no change in presentation. increase clozapine to 75 mg QHS as of tonight. 07/29: no change in presentation. increase clozapine to 100 mg QHS as of tonight. 3: no change in presentation. increase clozapine to 125 mg QHS as of tonight. 3: no change in presentation. increase clozapine to 150 mg QHS as of tonight. 3: episode of dizziness and tachycardia last NOC. orthostatic WS WNL. decrease trazodone from 50 mg to 25 mg QHS. keep clozapine dosing at 150 mg QHS for now. per staff, pt has been more social and less isolative in the past day. 08/02: only took clozapine 100 last night, c/o it's making him dizzy. agrees to continue 100 again tonight, but then increase to 125 tomorrow night. no change in presentation. 3/6: had clozaril 100 again last night, no dizziness. agrees to go up to 125 tonight. stable presentation. 08/04 continue tx. 08/05: mild improvement in time spent out of room and socialization. continue clozapine 125 tonight due to pt c/o near dizziness last night. titrate up to 150 over w/e as tolerated. 08/07/2023: Still declining clozapine 150 mg, but accepting 125 mg 08/07: no changes Reason for continued inpatient stay Substantial Risk for: rapid decompensation Time Spent With Patient Time: Total time managing care of this patient today ____ minutes.
[2023-08-08 18:00] VITALS: BP 129/76; PULSE 118; RESP 18; TEMP 36.1; O2SAT 97
[2023-08-08] MEDS: cloZAPine 100 MG, cloZAPine 25 MG 125 MG PO (21:11)
[2023-08-08] MEDS: traZODone HCL 25 MG HALFTAB PO (21:13)
[2023-08-09 08:27] VITALS: BP 119/60; PULSE 94; RESP 16; TEMP 36.3; O2SAT 96
[2023-08-09 08:54] LABS: Neut%MD 54.6 %; Neutrophils Absolute Auto 5.1 x10*3/uL (2.0-8.3); WBCANC 9.3 X10*3/uL
--- NOTE | 2023-08-09 17:04 | HO.PSYCHPN ---
Subjective Subjective Date of Service: 08/09/23 Reason For Visit: Psychosis Interim History: calm, cooperative. states he doesn't feel so bad about being in the hospital this time. had a good visit with his mother. looking forward to going back there. states he cannot take more than 125 mg clozaril bcse he is getting slightly dizzy every time he takes it. per staff, flat, guarded. clozaril 125 is all he can take 2/2 dizziness. Mental Status Exam Mental Status Exam Narrative: Pt is alert and oriented; behavior is cooperative and calm; dressed in casual attire; eye contact appropriate; Speech is nml amount, loudness, rate, and prosody; no psychomotor agitation/retardation present; thought process is organized and goal directed; Thought content - denied delusions. Denies feeling depressed. No SI/SIBI/HI/AVH expressed. Patients insight and judgment are impaired. Diagnostics Vital Signs (24Hr): Vital Signs - 24 hr 08/08/23 18:00 08/09/23 08:27 Temperature 96.9 F 97.3 F Pulse Rate 118 H 94 Respiratory Rate 18 16 Blood Pressure 129/76 119/60 Pulse Oximetry 97 96 Oxygen Delivery Method Room Air Room Air BMI result Body Mass Index 45.8 Labs 07/19/23 19:20 07/19/23 19:20 Labs: Laboratory Results - last 48 hr 08/09/23 08:21 Absolute Neuts (auto) 5.1 Medications Medications Current Medications Acetaminophen (Acetaminophen 325 Mg Tablet) 650 mg PO Q6H PRN PRN Reason: Pain, Mild (Pain Scale 1-3) Al Hydroxide/Mg Hydroxide (Magnesium Hydrox/Alum Hydrox 30 Ml Oral.Susp) 30 ml PO Q6H PRN PRN Reason: Heartburn/Nausea Clozapine 100 mg/ Clozapine 25 (mg) 125 mg PO BEDTIME [facility] Last Admin: 08/08/23 21:11 Dose: 125 mg Magnesium Hydroxide (Milk Of Magnesia 30 Ml Oral.Susp) 30 ml PO DAILY PRN PRN Reason: Constipation Nicotine Polacrilex (Nicotine Polacrilex 2 Mg Gum) 4 mg BUCCAL Q2H PRN PRN Reason: Nicotine Cravings Trazodone HCl (Trazodone Hcl 25 Mg Halftab) 25 mg PO BEDTIME MRX1 PRN PRN Reason: Insomnia Last Admin: 08/08/23 21:13 Dose: 25 mg Allergies Allergies Allergy/AdvReac Type Severity Reaction Status Date / Time Penicillins [PENICILLINS] Allergy Unknown RASH Verified 05/19/21 07:39 Assessment & Plan Assessment & Plan (1) Schizophrenia: Status: Acute Code(s): F20.9 - Schizophrenia, unspecified Plan Mr. Francis is a 28 year-old male with hx of schizophrenia who was brought on [facility] 12[facility] after mother called police due to verbal threat and posturing due to increase paranoid delusions. Pt is well known to this unit. He has tried while on the unit good therapeutic dose of olanzapine and haldol with minimal therapeutic benefit. We discussed trial of clozaril, which he agrees but does not think will work given that he has tried other medications and this point he states these are not voices, they are doing this to me, I don't need medication, you need to stop them! PLAN 1. Admit to M3, CV 15 minutes checks for safety 2. start clozaril, will have to register to [facility]- clozaril 25mg po qhs, increase by 25mg daily as tolerated. 3. aftercare planning 4. obtain collateral information. 07/24: Continue current management and treatment plan. 07/25: continue current management and treatment plan. 07/26: pt registered with [facility]. start clozapine 12.5 mg tonight. DC olanzapine. 07/27: denies mental illness. increase clozapine to 25 mg QHS as of tonight. paranoid delusions. 07/28: no change in presentation. increase clozapine to 50 mg QHS as of tonight. : no change in presentation. increase clozapine to 75 mg QHS as of tonight. 07/29: no change in presentation. increase clozapine to 100 mg QHS as of tonight. 3: no change in presentation. increase clozapine to 125 mg QHS as of tonight. 3: no change in presentation. increase clozapine to 150 mg QHS as of tonight. 3: episode of dizziness and tachycardia last NOC. orthostatic WS WNL. decrease trazodone from 50 mg to 25 mg QHS. keep clozapine dosing at 150 mg QHS for now. per staff, pt has been more social and less isolative in the past day. 08/02: only took clozapine 100 last night, c/o it's making him dizzy. MD agrees to continue 100 again tonight, but then increase to 125 tomorrow night. no change in presentation. 08/03: had clozaril 100 again last night, no dizziness. agrees to go up to 125 tonight. stable presentation. 08/04 continue tx. 08/05: mild improvement in time spent out of room and socialization. continue clozapine 125 tonight due to pt c/o near dizziness last night. titrate up to 150 over w/e as tolerated. 08/07/2023: Still declining clozapine 150 mg, but accepting 125 mg 08/07: no changes 08/08: states he cannot take more than 125 mg clozapine due to dizziness. met with mother yesterday which went well. looking forward to discharge. check clozapine level, as usual therapeutic dose range is at least 300 mg daily. Reason for continued inpatient stay Substantial Risk for: harm to others, inability to function and rapid decompensation Time Spent With Patient Time: Total time managing care of this patient today __25__ minutes.
[2023-08-09 19:22] VITALS: BP 133/66; PULSE 118; RESP 18; TEMP 36.8; O2SAT 96
[2023-08-09] MEDS: cloZAPine 100 MG, cloZAPine 25 MG 125 MG PO (22:33)
[2023-08-09] MEDS: traZODone HCL 25 MG HALFTAB PO (22:33)
[2023-08-10 08:18] VITALS: BP 128/60; PULSE 91; RESP 16; TEMP 36.3; O2SAT 95
--- NOTE | 2023-08-10 15:47 | HO.PSYCHPN ---
Subjective Subjective Date of Service: 08/10/23 Reason For Visit: Psychosis Interim History: up and about the unit, engaging, affectively expressive. likes [facility]. discuss discharge plans for wednesday. no complaints or requests. per staff, denies psych Sx. not attending groups. brighter affect. more social. slept 7 hours. Mental Status Exam Mental Status Exam Narrative: Pt is alert and oriented; behavior is cooperative and calm; dressed in casual attire; eye contact appropriate; Speech is nml amount, loudness, rate, and prosody; no psychomotor agitation/retardation present; thought process is organized and goal directed; Thought content - denied delusions. Denies feeling depressed. No SI/SIBI/HI/AVH expressed. Patients insight and judgment are impaired. Diagnostics Vital Signs (24Hr): Vital Signs - 24 hr 08/09/23 19:22 08/10/23 08:18 Temperature 98.3 F 97.3 F Pulse Rate 118 H 91 Respiratory Rate 18 16 Blood Pressure 133/66 128/60 Pulse Oximetry 96 95 Oxygen Delivery Method Room Air Room Air BMI result Body Mass Index 45.8 Labs 07/19/23 19:20 07/19/23 19:20 Labs: Laboratory Results - last 48 hr 08/09/23 08:21 Absolute Neuts (auto) 5.1 Medications Medications Current Medications Acetaminophen (Acetaminophen 325 Mg Tablet) 650 mg PO Q6H PRN PRN Reason: Pain, Mild (Pain Scale 1-3) Al Hydroxide/Mg Hydroxide (Magnesium Hydrox/Alum Hydrox 30 Ml Oral.Susp) 30 ml PO Q6H PRN PRN Reason: Heartburn/Nausea Clozapine 100 mg/ Clozapine 25 (mg) 125 mg PO BEDTIME [facility] Last Admin: 08/09/23 22:33 Dose: 125 mg Magnesium Hydroxide (Milk Of Magnesia 30 Ml Oral.Susp) 30 ml PO DAILY PRN PRN Reason: Constipation Nicotine Polacrilex (Nicotine Polacrilex 2 Mg Gum) 4 mg BUCCAL Q2H PRN PRN Reason: Nicotine Cravings Trazodone HCl (Trazodone Hcl 25 Mg Halftab) 25 mg PO BEDTIME MRX1 PRN PRN Reason: Insomnia Last Admin: 08/09/23 22:33 Dose: 25 mg Allergies Allergies Allergy/AdvReac Type Severity Reaction Status Date / Time Penicillins [PENICILLINS] Allergy Unknown RASH Verified 05/19/21 07:39 Assessment & Plan Assessment & Plan (1) Schizophrenia: Status: Acute Code(s): F20.9 - Schizophrenia, unspecified Plan Mr. Francis is a 28 year-old male with hx of schizophrenia who was brought on sect 12a after mother called police due to verbal threat and posturing due to increase paranoid delusions. Pt is well known to this unit. He has tried while on the unit good therapeutic dose of olanzapine and haldol with minimal therapeutic benefit. We discussed trial of clozaril, which he agrees but does not think will work given that he has tried other medications and this point he states these are not voices, they are doing this to me, I don't need medication, you need to stop them! PLAN 1. Admit to M3, CV 15 minutes checks for safety 2. start clozaril, will have to register to [facility]- clozaril 25mg po qhs, increase by 25mg daily as tolerated. 3. aftercare planning 4. obtain collateral information. 07/24: Continue current management and treatment plan. 07/25: continue current management and treatment plan. 07/26: pt registered with [facility]. start clozapine 12.5 mg tonight. DC olanzapine. 07/27: denies mental illness. increase clozapine to 25 mg QHS as of tonight. paranoid delusions. 07/28: no change in presentation. increase clozapine to 50 mg QHS as of tonight. : no change in presentation. increase clozapine to 75 mg QHS as of tonight. 07/29: no change in presentation. increase clozapine to 100 mg QHS as of tonight. 07/30: no change in presentation. increase clozapine to 125 mg QHS as of tonight. 3: no change in presentation. increase clozapine to 150 mg QHS as of tonight. 3: episode of dizziness and tachycardia last NOC. orthostatic WS WNL. decrease trazodone from 50 mg to 25 mg QHS. keep clozapine dosing at 150 mg QHS for now. per staff, pt has been more social and less isolative in the past day. 08/02: only took clozapine 100 last night, c/o it's making him dizzy. MD agrees to continue 100 again tonight, but then increase to 125 tomorrow night. no change in presentation. 08/03: had clozaril 100 again last night, no dizziness. agrees to go up to 125 tonight. stable presentation. 08/04 continue tx. 08/05: mild improvement in time spent out of room and socialization. continue clozapine 125 tonight due to pt c/o near dizziness last night. titrate up to 150 over w/e as tolerated. 08/07/2023: Still declining clozapine 150 mg, but accepting 125 mg 08/07: no changes 08/08: states he cannot take more than 125 mg clozapine due to dizziness. met with mother yesterday which went well. looking forward to discharge. check clozapine level, as usual therapeutic dose range is at least 300 mg daily. 08/09: up and about the unit, more social, engaging, expressive. agreeable to discharge wednesday. Reason for continued inpatient stay Substantial Risk for: inability to function and rapid decompensation Time Spent With Patient Time: Total time managing care of this patient today __25__ minutes.
[2023-08-10 19:40] VITALS: BP 118/65; PULSE 118; RESP 16; TEMP 36.7; O2SAT 96
[2023-08-10] MEDS: traZODone HCL 25 MG HALFTAB PO (22:35)
[2023-08-10] MEDS: cloZAPine 100 MG, cloZAPine 25 MG 125 MG PO (22:35)
[2023-08-11 09:00] VITALS: BP 130/98; PULSE 98; RESP 18; TEMP 36.8; O2SAT 97
[2023-08-11 12:57] LABS: Influenza A PCR NEGATIVE (Negative); Influenza B PCR NEGATIVE (Negative); Resp Syncy Virus RNA Qual PCR NEGATIVE (Negative); SARS COV2 PCR INHOUSE POSITIVE (Negative)
--- NOTE | 2023-08-11 15:31 | HO.PSYCHPN ---
Subjective Subjective Date of Service: 08/11/23 Reason For Visit: Psychosis Interim History: on floor in room, resting. somewhat faster responses. denies any problems. per staff, slept about 6 hours. COVID POS today. Mental Status Exam Mental Status Exam Narrative: Pt is alert and oriented; behavior is cooperative and calm; dressed in casual attire; eye contact appropriate; Speech is nml amount, loudness, rate, and prosody; no psychomotor agitation/retardation present; thought process is organized and goal directed; Thought content - denied delusions. Denies feeling depressed. No SI/SIBI/HI/AVH expressed. Patients insight and judgment are impaired. Diagnostics Vital Signs (24Hr): Vital Signs - 24 hr 08/10/23 19:40 Temperature 98.1 F Pulse Rate 118 H Respiratory Rate 16 Blood Pressure 118/65 Pulse Oximetry 96 Oxygen Delivery Method Room Air BMI result Body Mass Index 45.8 Labs 07/19/23 19:20 07/19/23 19:20 Labs: Laboratory Results - last 48 hr 08/11/23 11:46 Influenza Type A (PCR) NEGATIVE Influenza Type B (PCR) NEGATIVE RSV RNA Qual (PCR) NEGATIVE SARS-CoV-2 RNA (RT-PCR) POSITIVE A Medications Medications Current Medications Acetaminophen (Acetaminophen 325 Mg Tablet) 650 mg PO Q6H PRN PRN Reason: Pain, Mild (Pain Scale 1-3) Al Hydroxide/Mg Hydroxide (Magnesium Hydrox/Alum Hydrox 30 Ml Oral.Susp) 30 ml PO Q6H PRN PRN Reason: Heartburn/Nausea Clozapine 100 mg/ Clozapine 25 (mg) 125 mg PO BEDTIME [facility] Last Admin: 08/10/23 22:35 Dose: 125 mg Magnesium Hydroxide (Milk Of Magnesia 30 Ml Oral.Susp) 30 ml PO DAILY PRN PRN Reason: Constipation Nicotine Polacrilex (Nicotine Polacrilex 2 Mg Gum) 4 mg BUCCAL Q2H PRN PRN Reason: Nicotine Cravings Trazodone HCl (Trazodone Hcl 25 Mg Halftab) 25 mg PO BEDTIME MRX1 PRN PRN Reason: Insomnia Last Admin: 08/10/23 22:35 Dose: 25 mg Allergies Allergies Allergy/AdvReac Type Severity Reaction Status Date / Time Penicillins [PENICILLINS] Allergy Unknown RASH Verified 05/19/21 07:39 Assessment & Plan Assessment & Plan (1) Schizophrenia: Status: Acute Code(s): F20.9 - Schizophrenia, unspecified Plan Mr. Francis is a 28 year-old male with hx of schizophrenia who was brought on sect 12a after mother called police due to verbal threat and posturing due to increase paranoid delusions. Pt is well known to this unit. He has tried while on the unit good therapeutic dose of olanzapine and haldol with minimal therapeutic benefit. We discussed trial of clozaril, which he agrees but does not think will work given that he has tried other medications and this point he states these are not voices, they are doing this to me, I don't need medication, you need to stop them! PLAN 1. Admit to M3, CV 15 minutes checks for safety 2. start clozaril, will have to register to [facility]- clozaril 25mg po qhs, increase by 25mg daily as tolerated. 3. aftercare planning 4. obtain collateral information. 07/24: Continue current management and treatment plan. 07/25: continue current management and treatment plan. 07/26: pt registered with [facility]. start clozapine 12.5 mg tonight. DC olanzapine. 07/27: denies mental illness. increase clozapine to 25 mg QHS as of tonight. paranoid delusions. 07/28: no change in presentation. increase clozapine to 50 mg QHS as of tonight. : no change in presentation. increase clozapine to 75 mg QHS as of tonight. 07/29: no change in presentation. increase clozapine to 100 mg QHS as of tonight. 07/30: no change in presentation. increase clozapine to 125 mg QHS as of tonight. 07/31: no change in presentation. increase clozapine to 150 mg QHS as of tonight. 3/: episode of dizziness and tachycardia last NOC. orthostatic WS WNL. decrease trazodone from 50 mg to 25 mg QHS. keep clozapine dosing at 150 mg QHS for now. per staff, pt has been more social and less isolative in the past day. 08/02: only took clozapine 100 last night, c/o it's making him dizzy. agrees to continue 100 again tonight, but then increase to 125 tomorrow night. no change in presentation. 08/03: had clozaril 100 again last night, no dizziness. agrees to go up to 125 tonight. stable presentation. 3/7 continue tx. 08/05: mild improvement in time spent out of room and socialization. continue clozapine 125 tonight due to pt c/o near dizziness last night. titrate up to 150 over w/e as tolerated. 08/07/2023: Still declining clozapine 150 mg, but accepting 125 mg 08/07: no changes 08/08: states he cannot take more than 125 mg clozapine due to dizziness. met with mother yesterday which went well. looking forward to discharge. check clozapine level, as usual therapeutic dose range is at least 300 mg daily. 08/09: up and about the unit, more social, engaging, expressive. agreeable to discharge wednesday. 08/10: seen in his room. stable presentation. COVID POS today. planning for discharge tomorrow. Reason for continued inpatient stay Substantial Risk for: inability to function and rapid decompensation Time Spent With Patient Time: Total time managing care of this patient today ____ minutes.
[2023-08-11 19:20] VITALS: BP 113/74; PULSE 121; RESP 18; TEMP 37; O2SAT 95
[2023-08-11] MEDS: cloZAPine 100 MG, cloZAPine 25 MG 125 MG PO (22:29)
[2023-08-11] MEDS: traZODone HCL 25 MG HALFTAB PO (22:30)
[2023-08-12] MEDS: Acetaminophen 325 MG TABLET 650 MG PO ×3 (00:22→22:38)
[2023-08-12 07:00] VITALS: BMI 47.7
[2023-08-12 07:55] VITALS: BP 106/58; PULSE 108; RESP 18; TEMP 36.5; O2SAT 94
[2023-08-12 08:21] VITALS: BP 106/58; PULSE 108; RESP 18; TEMP 36.5; O2SAT 94
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
[2023-08-12 21:45] VITALS: BP 125/57; PULSE 125; RESP 18; TEMP 36.3; O2SAT 98
[2023-08-12] MEDS: traZODone HCL 25 MG HALFTAB PO (21:59)
[2023-08-12] MEDS: cloZAPine 100 MG, cloZAPine 25 MG 125 MG PO (21:59)
[2023-08-13] MEDS: Acetaminophen 325 MG TABLET 650 MG PO (05:16)
[2023-08-13 08:00] VITALS: BP 114/62; PULSE 103; RESP 20; TEMP 36.6; O2SAT 94
[2023-08-14 05:24] LABS: Clozapine (Clozaril) 88 mcg/L; Norclozapine 81 mcg/L (25-400)
== END 2023-08-13 11:59 | disposition home or self-care (01) | DRG 885 ==
LOC: HO.ED 07-20 14:59 → HO.PADLT16 07-21 13:58
PROVIDERS: Admitting Provider Psychiatry & Neurology Psychiatry; Emergency Provider Student in an Organized Health Care Education/Training Program; Visit Provider Psychiatry & Neurology Psychiatry
DX: F20.0 Paranoid schizophrenia (principal); U07.1 COVID-19
CPT/HCPCS: 0241U; 36415; 80053; 80061; 80143; 80159; 80179; 80307; 82607; 82746; 83036; 84439; 84443; 85025; 85048; 87635; 93005; 99285; S9485

== ENCOUNTER → 2023-07-19 22:42 | Outpatient (BNV) | payer MEDICARE, SELFPAY | PROVIDERS: Emergency Provider Student in an Organized Health Care Education/Training Program; Visit Provider Internal Medicine Cardiovascular Disease | DX: F25.9 Schizoaffective disorder, unspecified (principal) | CPT/HCPCS: 93010 ==

== ENCOUNTER → 2023-07-21 13:32 | Outpatient (BNV) | payer MEDICARE, OTHER, SELFPAY | PROVIDERS: Admitting Provider Psychiatry & Neurology Psychiatry; Emergency Provider Student in an Organized Health Care Education/Training Program; Visit Provider Social Worker | DX: F20.0 Paranoid schizophrenia (principal) | CPT/HCPCS: 90792; 99231; 99232; 99239 ==

== ENCOUNTER 2023-09-03 15:40 | Outpatient (REF) | payer MEDICARE, MEDICAID, SELFPAY ==
[2023-09-03 15:55] LABS: MANUAL DIFF FLAG NO
[2023-09-03 16:06] LABS: Basophils Percent Auto 0.2 % (0-2); Eosinophils Absolute Auto 0.4 X10*3/uL (0.0-0.4); Eosinophils Percent Auto 3.5 % (0-4); Hematocrit 41.7 % (42.0-52.0); Hemoglobin 14.1 g/dl (14.0-18.0); Imm Gran Abs Auto 0.04 X10*3/uL (0.00-0.03); Imm Gran Pct Auto 0.4 % (0.0-0.4); Lymphocytes Absolute Auto 3.1 X10*3/uL (1.2-4.9); Lymphocytes Percent Auto 29.2 % (20-40); Mean Corpuscular HGB Conc 33.8 g/dl (31.0-36.0); Mean Corpuscular Hemoglobin 30.2 pg (27.0-33.0); Mean Corpuscular Volume 89.3 fL (80.0-98.0); Mean Platelet Volume 9.6 fL (9.4-12.4); Monocytes Absolute Auto 0.6 X10*3/uL (0.1-1.2); Monocytes Percent Auto 5.5 % (2-11); Neutrophils Absolute Auto 6.5 x10*3/uL (2.0-8.3); Neutrophils Percent Auto 61.2 % (45-73); Platelet Count 322 X10*3/uL (160-400); Red Blood Count 4.67 X10*6/uL (4.60-5.80); Red Cell Distribution Width 13.1 % (11.0-16.0); White Blood Count 10.6 X10*3/uL (4.8-10.8)
== END 2023-09-03 15:41 | disposition home or self-care (01) ==
LOC: HO.LAB 15:40
PROVIDERS: PCP Pediatrics; Visit Provider Psychiatry & Neurology Psychiatry
DX: F20.9 Schizophrenia, unspecified (principal); Z79.899 Other long term (current) drug therapy
CPT/HCPCS: 36415; 85025

== ENCOUNTER 2023-09-08 16:45 | Outpatient (REF) | payer MEDICARE, MEDICAID, SELFPAY ==
[2023-09-08 16:54] LABS: MANUAL DIFF FLAG NO
[2023-09-08 17:52] LABS: Basophils Percent Auto 0.3 % (0-2); Eosinophils Absolute Auto 0.4 X10*3/uL (0.0-0.4); Eosinophils Percent Auto 3.9 % (0-4); Hematocrit 40.9 % (42.0-52.0); Imm Gran Abs Auto 0.03 X10*3/uL (0.00-0.03); Imm Gran Pct Auto 0.3 % (0.0-0.4); Lymphocytes Absolute Auto 3.8 X10*3/uL (1.2-4.9); Lymphocytes Percent Auto 35.2 % (20-40); Mean Corpuscular HGB Conc 34.2 g/dl (31.0-36.0); Mean Corpuscular Hemoglobin 30.6 pg (27.0-33.0); Mean Corpuscular Volume 89.3 fL (80.0-98.0); Mean Platelet Volume 9.7 fL (9.4-12.4); Monocytes Absolute Auto 0.6 X10*3/uL (0.1-1.2); Monocytes Percent Auto 5.9 % (2-11); Neutrophils Absolute Auto 5.9 x10*3/uL (2.0-8.3); Neutrophils Percent Auto 54.4 % (45-73); Platelet Count 329 X10*3/uL (160-400); Red Blood Count 4.58 X10*6/uL (4.60-5.80); Red Cell Distribution Width 13.2 % (11.0-16.0); White Blood Count 10.8 X10*3/uL (4.8-10.8)
== END 2023-09-08 16:46 | disposition home or self-care (01) ==
LOC: HO.LAB 16:45
PROVIDERS: PCP Pediatrics; Visit Provider Psychiatry & Neurology Psychiatry
DX: F20.9 Schizophrenia, unspecified (principal); Z79.899 Other long term (current) drug therapy
CPT/HCPCS: 36415; 85025

== ENCOUNTER 2023-10-04 16:11 | Outpatient (REF) | payer MEDICARE, MEDICAID, SELFPAY ==
[2023-10-04 16:20] LABS: MANUAL DIFF FLAG NO
[2023-10-04 17:45] LABS: Basophils Percent Auto 0.3 % (0-2); Eosinophils Absolute Auto 0.4 X10*3/uL (0.0-0.4); Eosinophils Percent Auto 3.5 % (0-4); Hematocrit 42.1 % (42.0-52.0); Hemoglobin 14.1 g/dl (14.0-18.0); Imm Gran Abs Auto 0.03 X10*3/uL (0.00-0.03); Imm Gran Pct Auto 0.3 % (0.0-0.4); Lymphocytes Absolute Auto 3.1 X10*3/uL (1.2-4.9); Lymphocytes Percent Auto 30.2 % (20-40); Mean Corpuscular HGB Conc 33.5 g/dl (31.0-36.0); Mean Corpuscular Hemoglobin 30.2 pg (27.0-33.0); Mean Corpuscular Volume 90.1 fL (80.0-98.0); Monocytes Absolute Auto 0.7 X10*3/uL (0.1-1.2); Monocytes Percent Auto 6.3 % (2-11); Neutrophils Absolute Auto 6.1 x10*3/uL (2.0-8.3); Neutrophils Percent Auto 59.4 % (45-73); Platelet Count 330 X10*3/uL (160-400); Red Blood Count 4.67 X10*6/uL (4.60-5.80); Red Cell Distribution Width 13.2 % (11.0-16.0); White Blood Count 10.3 X10*3/uL (4.8-10.8)
== END 2023-10-04 16:12 | disposition home or self-care (01) ==
LOC: HO.LAB 16:11
PROVIDERS: Visit Provider Psychiatry & Neurology Psychiatry
DX: F20.9 Schizophrenia, unspecified (principal); Z79.899 Other long term (current) drug therapy
CPT/HCPCS: 36415; 85025

== ENCOUNTER 2023-10-11 16:49 | Inpatient (IN) | payer MEDICARE, MEDICAID, SELFPAY ==
[2023-10-11 17:20] VITALS: BP 118/96; PULSE 117; RESP 18; TEMP 36.6; O2SAT 97; BMI 46.7
[2023-10-11 17:31] VITALS: BP 118/96; PULSE 117; RESP 18; TEMP 36.6; O2SAT 97
--- NOTE | 2023-10-11 17:35 | ED_ITS ---
HPI - Psych General Chief Complaint: Psychiatric Symptoms Stated Complaint: voluntary, schizophrenia, PD on board Time Seen by Provider: 10/11/23 16:54 Source: patient and EMS Mode of arrival: EMS Limitations: no limitations History of Present Illness HPI Narrative: Patient is a 28-year-old male who presents to the emergency department via EMS, on a section 12 from [facility] department. Been reportedly he was asking [place] police lieutenant to kill him or beat him up. In addition, when speaking with police he was talking about ?killing him and while speaking in 3rd person?. When asking patient why he is here he simply stares off into space does not answer, a few moments later he will report I do not know. Evidently he has not been showing up to work so somebody had called for a wellness check. 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 He states he lives with his mother and her , he reports taking all his medications as prescribed but is unable to tell me which medications. Per nursing, he stated he is taking 50 mg of Clozaril, though pharmacy records indicate he is prescribed 125 mg. He denies any physical complaints at this time Related Data Previous Rx's ?Medication ?Instructions ?Recorded clozapine 25 mg tablet 125 mg (5 x 25 mg) PO BEDTIME 30 09/07/23 days #150 tabs Allergies Allergy/AdvReac Type Severity Reaction Status Date / Time Penicillins [PENICILLINS] Allergy Unknown RASH Verified 10/11/23 17:29 Review of Systems 2 Review of Systems: Yes all other systems are reviewed and are negative PMFSH Past Medical History Attestation statement: The following information was validated with the patient. Source: old records reviewed Medical History Schizophrenia Social History Social History Household Members: Family Housing: Apartment Do you presently have visiting nurse or other home services: No Unable to assess alcohol history related to: Refusing to respond Alcohol intake: unknown Comment: patient on 5 minute checks for safety unrelated to fall assessment. Patient Tobacco Use Status: Never used Tobacco Smoked in Last 30 Days: No e-Cigarette/Vaping Use: Never Used Second Hand Smoke Exposure: No Use of substances other than those prescribed or required for medical reasons: Refusing to respond Substance Use Type: Marijuana Advance Directives: No Advance Directives Information Provided: No Do you have a plan to hurt others: No Plan service: No Sexual orientation: Straight/Heterosexual Physical Exam 2 Vital Signs: Vital Signs: Last Vital Signs Temp 97.8 F 10/11/23 17:31 Pulse 117 H 10/11/23 17:31 Resp 18 10/11/23 17:31 BP 118/96 H 10/11/23 17:31 Pulse Ox 97 10/11/23 17:31 O2 Del Method Room Air 10/11/23 17:31 BMI result Body Mass Index 46.7 Appearance: Alert.?Oriented to person, place and time. No acute distress.?Normal affect. Eyes: Pupils equal, round and reactive to light.? ENT: Pharynx normal.?? Neck: Normal inspection.? Neck supple.?? CVS: Heart sounds normal. Normal heart rate and rhythm.? Pulses normal.?? Respiratory: No respiratory distress.? Lung sounds clear to auscultation bilaterally?? Abdomen: Soft and non-tender. Normoactive bowel sounds. Skin: Skin warm and dry.? Normal skin color.? Extremities: No lower extremity edema. Neuro: Moves all extremities spontaneously. Sensation intact bilaterally. CN II- XII intact. No focal neuro deficits. Ambulates with normal steady gait. Medical Decision Making Medical Decision Making MDM Narrative: Patient is a 28-year-old male with past medical history of depression, autism, ADHD, schizophrenia presenting to emergency department on a section 12 from police department as per HPI. He is withdrawn, appears to be responding to internal stimuli, answering some questions appropriately others with long pauses in simple yes or no answers. Concern at this time. Decompensated schizophrenia. He has no physical complaints and his physical examination is benign. Plan to obtain serum labs to exclude acute derangements and toxicology testing. Anticipate he be placed in physician observation so that care team evaluation can ensue, likely will require inpatient psych admission. Differential Diagnosis Differential Diagnoses: The differential diagnosis associated with the presentation includes (Decompensated schizophrenia, paranoia, depression) Admission/Observation Consideration of admission/observation: Escalation of care including admission/observation considered Consult Healthcare Provider Management of the patient was discussed with: Behavioral Health Provider (Care team) Patient was seen in the community by [facility] in is a inpatient bed search Lab Data [facility] Lab Attestation statement: I reviewed the patient's lab results. CBC and CMP overall unremarkable. Urinalysis without evidence of infection or microscopic hematuria. Toxicology panel unremarkable aside from marijuana 10/11/23 21:47 10/11/23 21:47 Labs: Lab Results 10/11/23 10/11/23 Range/Units 21:47 22:44 WBC 11.1 H (4.8-10.8) X10*3/uL RBC 5.06 (4.60-5.80) X10*6/uL Hgb 15.4 (14.0-18.0) g/dl Hct 44.2 (42.0-52.0) % MCV 87.4 (80.0-98.0) fL MCH 30.4 (27.0-33.0) pg MCHC 34.8 (31.0-36.0) g/dl RDW 13.0 (11.0-16.0) % Plt Count 324 (160-400) X10*3/uL MPV 9.6 (9.4-12.4) fL Immature Gran % (Auto) 0.3 (0.0-0.4) % Neut % (Auto) 73.6 H (45-73) % Lymph % (Auto) 18.8 L (20-40) % [place] % (Auto) 6.0 (2-11) % Eos % (Auto) 0.9 (0-4) % Baso % (Auto) 0.4 (0-2) % Lymph # (Auto) 2.1 (1.2-4.9) X10*3/uL [place] # (Auto) 0.7 (0.1-1.2) X10*3/uL Eos # (Auto) 0.1 (0.0-0.4) X10*3/uL Baso # (Auto) 0.0 (0.0-0.2) X10*3/uL Abs Immat Gran (auto) 0.03 (0.00-0.03) X10*3/uL Absolute Neuts (auto) 8.1 (2.0-8.3) x10*3/uL Absolute Nucleated RBC 0.000 (0.0-0.012) X10*3/uL Nucleated RBC % (auto) 0.0 (0.0-0.2) /100WBC Sodium 143 (135-145) mmol/L Potassium 4.0 (3.3-5.1) mmol/L Chloride 107 (96-108) mmol/L Carbon Dioxide 22 (22-29) mmol/L Anion Gap 18 (12-20) BUN 13 (9-16) mg/dL Creatinine 0.87 (0.5-1.4) mg/dL Estim Creat Clear Calc 176.7 Estimated GFR > 60 Random Glucose 100 (60-115) mg/dL Calcium 10.5 H (8.4-10.2) mg/dL Total Bilirubin 0.4 (0.0-1.0) mg/dL AST 35 (5-37) U/L ALT 67 H (0-40) U/L Alkaline Phosphatase 72 (39-117) U/L Total Protein 8.6 H (6.5-8.0) g/dL Albumin 4.8 (3.5-5.0) g/dL Urine Color Dark Yellow Urine Appearance Clear Urine pH 6.0 (5.0-9.0) Ur Specific [place] >= 1.030 H (1.005-1.025) Urine Protein 30 (1+) H (Neg-Trace) mg/dL Urine Glucose (UA) Negative (Negative) mg/dL Urine Ketones 15 (Negative) mg/dL Urine Blood Negative (Negative) Urine Nitrite Negative (Negative) Ur Leukocyte Esterase Negative (Negative) Urine RBC 0-2 (0-2) /HPF Urine WBC 0-5 (0-5) /HPF Ur Squamous Epith Cells 0-2 (0-2) /HPF Urine Bacteria None Seen (None Seen) Hyaline Casts 0-2 (0-2) /LPF Urine Opiates Screen Not Detected (Not Detect) Ur Buprenorphine Scrn Not Detected (Not Detect) ng/mL Ur Oxycodone Screen Not Detected (Not Detect) ng/mL Urine Methadone Screen Not Detected (Not Detect) ng/mL Urine Fentanyl Screen Not Detected (Not Detect) Ur Barbiturates Screen Not Detected (Not Detect) Ur Phencyclidine Scrn Not Detected (Not Detect) Ur Amphetamines Screen Not Detected (Not Detect) U Benzodiazepines Scrn Not Detected (Not Detect) Urine Cocaine Screen Not Detected (Not Detect) U Marijuana (THC) Screen POSITIVE H (Not Detect) Ethyl Alcohol < 10 mg/dL Independent Historian Clinical information obtained from an independent historian. History obtained from or confirmed by: EMS External Record Review External record reviewed: Inpatient record 07/22/2023-08/12/2023: Inpatient psych more stabilized on clozapine 125 mg Discharge Plan Discharge Clinical Impression: Schizophrenia Patient Disposition: Still a Patient Prescriptions: No Action clozapine 25 mg tablet 125 mg PO BEDTIME 30 Days Qty: 150 0RF Interventions: [place]-Suicide Risk Severity Scale Last Done: 10/11/23 17:30 Print Language: Georgian
--- NOTE | 2023-10-11 19:22 | PC.NURSE ---
patient seated now in communal area of behavior pod, appears in no acute distress.
[2023-10-11 21:54] LABS: MANUAL DIFF FLAG NO
[2023-10-11 21:56] LABS: Basophils Percent Auto 0.4 % (0-2); Eosinophils Absolute Auto 0.1 X10*3/uL (0.0-0.4); Eosinophils Percent Auto 0.9 % (0-4); Hematocrit 44.2 % (42.0-52.0); Hemoglobin 15.4 g/dl (14.0-18.0); Imm Gran Abs Auto 0.03 X10*3/uL (0.00-0.03); Imm Gran Pct Auto 0.3 % (0.0-0.4); Lymphocytes Absolute Auto 2.1 X10*3/uL (1.2-4.9); Lymphocytes Percent Auto 18.8 % (20-40); Mean Corpuscular HGB Conc 34.8 g/dl (31.0-36.0); Mean Corpuscular Hemoglobin 30.4 pg (27.0-33.0); Mean Corpuscular Volume 87.4 fL (80.0-98.0); Mean Platelet Volume 9.6 fL (9.4-12.4); Monocytes Absolute Auto 0.7 X10*3/uL (0.1-1.2); Neutrophils Absolute Auto 8.1 x10*3/uL (2.0-8.3); Neutrophils Percent Auto 73.6 % (45-73); Platelet Count 324 X10*3/uL (160-400); Red Blood Count 5.06 X10*6/uL (4.60-5.80); White Blood Count 11.1 X10*3/uL (4.8-10.8)
[2023-10-11 22:14] LABS: Alanine Aminotransferase 67 U/L (0-40); Albumin Level 4.8 g/dL (3.5-5.0); Alkaline Phosphatase 72 U/L (39-117); Anion Gap 18 (12-20); Aspartate Amino Transferase 35 U/L (5-37); Bilirubin Total 0.4 mg/dL (0.0-1.0); Blood Urea Nitrogen 13 mg/dL (9-16); Calcium 10.5 mg/dL (8.4-10.2); Carbon Dioxide 22 mmol/L (22-29); Chloride 107 mmol/L (96-108); Creatinine Clr Calc Pharmacy 176.7; Estimated Glomerular Filt Rate > 60; Ethanol < 10 mg/dL; Glucose Random 100 mg/dL (60-115); Sodium 143 mmol/L (135-145); Total Protein 8.6 g/dL (6.5-8.0)
[2023-10-11 22:55] LABS: Appearance Urine Clear; Color Urine Dark Yellow; Glucose Urine UA Negative (Negative); Leukocyte Esterase Urine Negative (Negative); Nitrite Urine Negative (Negative); Specific Gravity - Urine >= 1.030 (1.005-1.025); UMIC TRIGGER UACC YES; Urine Blood Negative (Negative); Urine Ketones 15 mg/dL (Negative); Urine Protein 30 (1+) mg/dL (Neg-Trace)
[2023-10-11 22:57] LABS: Bacteria Urine None Seen (None Seen); Hyaline Casts Urine 0-2 /LPF (0-2); RBC Urine 0-2 /HPF (0-2); Squamous Epithelial Cell Urine 0-2 /HPF (0-2); WBC Urine 0-5 /HPF (0-5)
[2023-10-11 23:02] LABS: Amphetamine Screen Urine Not Detected (Not Detect); Barbiturates, Urine Not Detected (Not Detect); Benzodiazepines Screen Urine Not Detected (Not Detect); Buprenorphine Scr Not Detected (Not Detect); Cannabinoid Screen Urine POSITIVE (Not Detect); Cocaine Screen Urine Not Detected (Not Detect); Fentanyl, urine Not Detected (Not Detect); Methadone Screen, Urine Not Detected (Not Detect); Opiate Screen Urine Not Detected (Not Detect); Oxycodone Screen Urine Not Detected (Not Detect); Phencyclidine Screen Urine Not Detected (Not Detect)
--- NOTE | 2023-10-12 03:17 | PC.NURSE ---
t/w approached client trying to present him with sleep aid, client sitting awake in his room, patient declined.
[2023-10-12 03:53] VITALS: BP 149/83; PULSE 86; RESP 18; TEMP 36.9; O2SAT 96
[2023-10-12] MEDS: traZODone HCL 50 MG TABLET PO (05:25)
--- NOTE | 2023-10-12 07:53 | PC.NURSE ---
assumed care of pt at 0700, pt sitting at desk, eating breakfast, denies any needs at this time.
[2023-10-12 12:28] VITALS: BP 141/69; PULSE 80; RESP 16; TEMP 37.1; O2SAT 97
[2023-10-12 12:45] VITALS: BMI 45.9
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
[2023-10-12 20:11] VITALS: BP 137/92; PULSE 91; RESP 20; TEMP 36.8; O2SAT 97
[2023-10-12] MEDS: cloZAPine 25 MG TABLET PO (20:19)
[2023-10-13 07:40] VITALS: BP 136/71; PULSE 84; RESP 16; TEMP 37.1; O2SAT 97
--- NOTE | 2023-10-13 09:40 | P.HPPS_ITS ---
HPI Date of Service: 10/13/23 Chief Complaint: psychosis HPI Narrative: per [facility] crisis evalo, pt's mother called for an eval and pt was seen in his home. pt's mother reported he has recently been not attending work and exhibiting/experiencing increase paranoid delusions, disorganized thoughts, AVH, RIS, increased social isolation, insomnia, poor ADLs, increased agitation. pt was noted to have pronounced delay in answering questions and appeared to be RIS during the interview. he also displayed some bizarre behaviors. police were on-scene, and pt asked them to shoot him or beat him up. he then told them he had weapons under his bed and began to crawl under his bed to get them. police restrained pt and brought him to EMS. he was BIBA on a section 12. on interview on the unit, pt was generally showing PRM and demonstrated very long [place]. he appeared to be attending to internal stimuli, and on two occasions approached MD with a sense of urgency, out of the blue, and said things such as, i am baptist, and, i think someone turned me racist. he was generally vague and unable to provide history. he was encouraged to continue with clozaril titration. Past Psychiatric History: h/o schizophrenia hosp: multiple hospitalizations. most recent inpt [facility]. h/o medication non-compliance. seen at [facility]. DM services. no documented h/o SA/SIB/HIB. Medical Evaluation Reviewed: Yes [facility] Medical History Schizophrenia Family History: reportedly there is a FH of mental illness and ASHANTI. sister - PTSD mother - bipolar disorder, schizophrenia, PTSD Social History: born [place] and [place] 13 yo. one of three kids. sibs spent some time in foster care when he was 4 yo and then reunited a few years later. mother is and remarried. pt lives with his mother single, never , no children. receives [employer] income. HS grad. He does work at [employer] Substance History: reports heavy cannabis use, daily. utox POS. also h/o intermittent alcohol use. Trauma History: alluded to childhood H/O trauma, has not specified, possibly while in foster care. Diagnostics Vital Signs (24Hr): Vital Signs - 24 hr 10/12/23 12:28 10/12/23 20:11 10/13/23 07:40 Temperature 98.8 F 98.2 F 98.8 F Pulse Rate 80 91 84 Respiratory Rate 16 20 16 Blood Pressure 141/69 H 137/92 H 136/71 Pulse Oximetry 97 97 97 Oxygen Delivery Method Room Air Room Air Room Air BMI result Body Mass Index 45.9 Labs 10/11/23 21:47 10/11/23 21:47 Labs: Laboratory Results - last 48 hr 10/11/23 10/11/23 21:47 22:44 WBC 11.1 H RBC 5.06 Hgb 15.4 Hct 44.2 MCV 87.4 MCH 30.4 MCHC 34.8 RDW 13.0 Plt Count 324 MPV 9.6 Immature Gran % (Auto) 0.3 Neut % (Auto) 73.6 H Lymph % (Auto) 18.8 L [place] % (Auto) 6.0 Eos % (Auto) 0.9 Baso % (Auto) 0.4 Lymph # (Auto) 2.1 [place] # (Auto) 0.7 Eos # (Auto) 0.1 Baso # (Auto) 0.0 Abs Immat Gran (auto) 0.03 Absolute Neuts (auto) 8.1 Absolute Nucleated RBC 0.000 Nucleated RBC % (auto) 0.0 Sodium 143 Potassium 4.0 Chloride 107 Carbon Dioxide 22 Anion Gap 18 BUN 13 Creatinine 0.87 Estim Creat Clear Calc 176.7 Estimated GFR > 60 Random Glucose 100 Calcium 10.5 H Total Bilirubin 0.4 AST 35 ALT 67 H Alkaline Phosphatase 72 Total Protein 8.6 H Albumin 4.8 Urine Color Dark Yellow Urine Appearance Clear Urine pH 6.0 Ur Specific [place] >= 1.030 H Urine Protein 30 (1+) H Urine Glucose (UA) Negative Urine Ketones 15 Urine Blood Negative Urine Nitrite Negative Ur Leukocyte Esterase Negative Urine RBC 0-2 Urine WBC 0-5 Ur Squamous Epith Cells 0-2 Urine Bacteria None Seen Hyaline Casts 0-2 Urine Opiates Screen Not Detected Ur Buprenorphine Scrn Not Detected Ur Oxycodone Screen Not Detected Urine Methadone Screen Not Detected Urine Fentanyl Screen Not Detected Ur Barbiturates Screen Not Detected Ur Phencyclidine Scrn Not Detected Ur Amphetamines Screen Not Detected U Benzodiazepines Scrn Not Detected Urine Cocaine Screen Not Detected U Marijuana (THC) Screen POSITIVE H Ethyl Alcohol < 10 Meds/Allergies Allergies Allergies Allergy/AdvReac Type Severity Reaction Status Date / Time Penicillins [PENICILLINS] Allergy Unknown RASH Verified 10/11/23 17:29 Mental Status Exam Mental Status Exam Narrative: disheveled, [place]. cooperative. PMR. speech decr amount, loudness, tone. incr latency. thoughts appears distracted and disorganized. may answer questions, but spontaneous speech is bizarre. likely attending to AVH. affect constricted, hypo-intense. mood not assessed. no SI/HI/AVH expressed. Assessment & Plan Assessment & Plan (1) Schizophrenia: Status: Acute Code(s): F20.9 - Schizophrenia, unspecified (2) Cannabis use disorder: Status: Acute Code(s): F12.90 - Cannabis use, unspecified, uncomplicated Plan retitrate clozapine Patient educated on: other Reason for continued inpatient stay Substantial Risk for: harm to self and inability to function Statement Statement: I have reviewed the history and physical and performed a pertinent examination on my patient. No changes have occurred unless specified. If the History and Physical was not performed prior to admission, the Hospitalist's service will be consulted for completing the admission physical. Time Spent With Patient Time: Total time managing care of this patient today __55__ minutes.
[2023-10-13] MEDS: hydrOXYzine HCL 25 MG TABLET PO (13:08)
[2023-10-13] MEDS: OLANZapine ODT 10 MG TAB.RAPDIS TRANSLINGU (13:08)
[2023-10-13 21:58] VITALS: BP 146/84; PULSE 83; RESP 16; TEMP 36.8; O2SAT 96
[2023-10-13] MEDS: cloZAPine 25 MG TABLET 50 MG PO (22:08)
[2023-10-14 07:00] VITALS: BMI 45.1
[2023-10-14 07:42] VITALS: BP 120/58; PULSE 95; RESP 14; TEMP 35.6; O2SAT 99
--- NOTE | 2023-10-14 14:11 | HO.PSYCHPN ---
Subjective Subjective Date of Service: 10/14/23 Reason For Visit: psychosis Interim History: faster responses, a tad more cogent. informed of plan to get on invega and use WONG. per staff, denies dep/anx. labile, tearful. +RIS. slept all juice. Mental Status Exam Mental Status Exam Narrative: disheveled, hospital [facility]. cooperative. PMR. speech decr amount, loudness, tone. incr latency. thoughts appears distracted and disorganized. may answer questions, but spontaneous speech is bizarre. likely attending to AV. affect constricted, hypo-intense. mood not assessed. no SI/HI/AVH expressed. Diagnostics Vital Signs (24Hr): Vital Signs - 24 hr 10/13/23 21:58 10/14/23 07:42 Temperature 98.3 F 96.1 F L Pulse Rate 83 95 Respiratory Rate 16 14 Blood Pressure 146/84 H 120/58 L Pulse Oximetry 96 99 Oxygen Delivery Method Room Air Room Air BMI result Body Mass Index 45.9 Labs 10/11/23 21:47 10/11/23 21:47 Medications Medications Current Medications Acetaminophen (Acetaminophen 325 Mg Tablet) 650 mg PO Q6H PRN PRN Reason: Headache/Pain Mild Scale (1-3) Al Hydroxide/Mg Hydroxide (Magnesium Hydrox/Alum Hydrox 30 Ml Oral.Susp) 30 ml PO Q6H PRN PRN Reason: Heartburn/Nausea Clozapine (Clozapine 25 Mg Tablet) 50 mg PO BEDTIME KYLE Last Admin: 10/13/23 22:08 Dose: 50 mg Hydroxyzine HCl (Hydroxyzine Hcl 25 Mg Tablet) 25 mg PO Q6H PRN PRN Reason: Anxiety Last Admin: 10/13/23 13:08 Dose: 25 mg Magnesium Hydroxide (Milk Of Magnesia 30 Ml Oral.Susp) 30 ml PO DAILY PRN PRN Reason: Constipation Olanzapine (Olanzapine Odt 10 Mg Tab.Rapdis) 10 mg TRANSLINGU TID PRN PRN Reason: agitation Last Admin: 10/13/23 13:08 Dose: 10 mg Trazodone HCl (Trazodone Hcl 50 Mg Tablet) 50 mg PO BEDTIME MRX1 PRN PRN Reason: Insomnia Allergies Allergies Allergy/AdvReac Type Severity Reaction Status Date / Time Penicillins [PENICILLINS] Allergy Unknown RASH Verified 10/11/23 17:29 Assessment & Plan Assessment & Plan (1) Schizophrenia: Status: Acute Code(s): F20.9 - Schizophrenia, unspecified (2) Cannabis use disorder: Status: Acute Code(s): F12.90 - Cannabis use, unspecified, uncomplicated Plan 10/12: retitrate clozapine. 10/13: hold on clozapine, titrate invega to 12 mg daily, then initiate WONG. due to pt's repeated failures in outpt Tx on PO medication, will try WONG. per pt and brother Hx, pt has h/o doing better on WONG. Reason for continued inpatient stay Substantial Risk for: harm to self, inability to function and rapid decompensation Time Spent With Patient Time: Total time managing care of this patient today _25___ minutes.
[2023-10-14 21:50] VITALS: BP 134/63; PULSE 112; RESP 18; TEMP 36.9; O2SAT 96
[2023-10-14] MEDS: Paliperidone ER 3 MG TAB.ER.24 PO (21:56)
[2023-10-14] MEDS: OLANZapine ODT 10 MG TAB.RAPDIS TRANSLINGU (21:56)
[2023-10-14] MEDS: traZODone HCL 50 MG TABLET PO (21:56)
[2023-10-14] MEDS: cloZAPine 25 MG TABLET 50 MG PO (21:56)
[2023-10-15 07:43] VITALS: BP 127/70; PULSE 91; RESP 14; TEMP 36.6; O2SAT 96
--- NOTE | 2023-10-15 14:02 | HO.PSYCHPN ---
Subjective Subjective Date of Service: 10/15/23 Reason For Visit: psychosis Interim History: calm, cooperative. closer to baseline in hospital, sleeping with blanket pulled over face, but easily rousable and quickly responsive to questions. denies any problems, has no questions. informed of plan to continue upward titration of invega. per staff, no dep/anx. flat, withdrawn, guarded, no SI/HI/AVH. pleasant. +meds. slept about 6 hours. Mental Status Exam Mental Status Exam Narrative: disheveled, hospital [facility]. cooperative. no PMA/PMR. speech decr amount, nml loudness, decr tone. nml latency. thoughts appear distracted, but able to reapidly answer questions in a terse but cogent manner. affect constricted, hypo-intense. mood not assessed. no SI/HI/AVH expressed. Diagnostics Vital Signs (24Hr): Vital Signs - 24 hr 10/14/23 21:50 10/15/23 07:43 Temperature 98.5 F 97.9 F Pulse Rate 112 H 91 Respiratory Rate 18 14 Blood Pressure 134/63 127/70 Pulse Oximetry 96 96 Oxygen Delivery Method Room Air Room Air BMI result Body Mass Index 45.1 Labs 10/11/23 21:47 10/11/23 21:47 Medications Medications Current Medications Acetaminophen (Acetaminophen 325 Mg Tablet) 650 mg PO Q6H PRN PRN Reason: Headache/Pain Mild Scale (1-3) Al Hydroxide/Mg Hydroxide (Magnesium Hydrox/Alum Hydrox 30 Ml Oral.Susp) 30 ml PO Q6H PRN PRN Reason: Heartburn/Nausea Clozapine (Clozapine 25 Mg Tablet) 50 mg PO BEDTIME KYLE Last Admin: 10/14/23 21:56 Dose: 50 mg Hydroxyzine HCl (Hydroxyzine Hcl 25 Mg Tablet) 25 mg PO Q6H PRN PRN Reason: Anxiety Last Admin: 10/13/23 13:08 Dose: 25 mg Magnesium Hydroxide (Milk Of Magnesia 30 Ml Oral.Susp) 30 ml PO DAILY PRN PRN Reason: Constipation Olanzapine (Olanzapine Odt 10 Mg Tab.Rapdis) 10 mg TRANSLINGU TID PRN PRN Reason: agitation Last Admin: 10/14/23 21:56 Dose: 10 mg Paliperidone (Paliperidone Er 3 Mg Tab.Er.24) 3 mg PO BEDTIME KYLE Last Admin: 10/14/23 21:56 Dose: 3 mg Trazodone HCl (Trazodone Hcl 50 Mg Tablet) 50 mg PO BEDTIME MRX1 PRN PRN Reason: Insomnia Last Admin: 10/14/23 21:56 Dose: 50 mg Allergies Allergies Allergy/AdvReac Type Severity Reaction Status Date / Time Penicillins [PENICILLINS] Allergy Unknown RASH Verified 10/11/23 17:29 Assessment & Plan Assessment & Plan (1) Schizophrenia: Status: Acute Code(s): F20.9 - Schizophrenia, unspecified (2) Cannabis use disorder: Status: Acute Code(s): F12.90 - Cannabis use, unspecified, uncomplicated Plan 10/12: retitrate clozapine. 10/13: hold on clozapine, titrate invega to 12 mg daily, then initiate WONG. due to pt's repeated failures in outpt Tx on PO medication, will try WONG. per pt and brother Hx, pt has h/o doing better on WONG. 10/14: continue clozapine 50 mg daily. increase invega to 6 mg QHS. titrate up on invega as tolerated and indicated over w/e. mental status substantially improved from admission. Reason for continued inpatient stay Substantial Risk for: harm to self, inability to function and rapid decompensation Time Spent With Patient Time: Total time managing care of this patient today __25__ minutes.
[2023-10-15 20:00] VITALS: BP 129/80; PULSE 95; RESP 16; TEMP 37.2; O2SAT 97
[2023-10-15] MEDS: Paliperidone ER 6 MG TAB.ER.24 PO (21:11)
[2023-10-15] MEDS: cloZAPine 25 MG TABLET 50 MG PO (21:12)
[2023-10-16 08:15] VITALS: BP 117/66; PULSE 95; RESP 16; TEMP 36.9; O2SAT 96
--- NOTE | 2023-10-16 11:10 | HO.PSYCHPN ---
Subjective Subjective Date of Service: 10/16/23 Reason For Visit: psychosis Subjective Notes: Conditional Voluntary Interim History: Patient was seen and discussed in rounds today. Records and plans were reviewed. He is doing better and is very close to baseline and looking forward to discharge. Eating and sleeping adequately. Continues to be isolative, still having some thought blocking but overall stabilized. Tolerating medications with no complaints or side effects Review of Systems Review of Systems Yes all other systems are reviewed and are negative Mental Status Exam Mental Status Exam Narrative: In today's visit he is alert, oriented and pleasant. Normal speech. Moderate eye contact. Appropriate affect. No signs of psychosis. Possible thought blocking. No SI/HI. No response to internal stimuli. Cognitively is intact. Judgment is intact. Diagnostics Vital Signs (24Hr): Vital Signs - 24 hr 10/15/23 20:00 10/16/23 08:15 Temperature 99 F 98.5 F Pulse Rate 95 95 Respiratory Rate 16 16 Blood Pressure 129/80 117/66 Pulse Oximetry 97 96 Oxygen Delivery Method Room Air Room Air BMI result Body Mass Index 45.1 Labs 10/11/23 21:47 10/11/23 21:47 Medications Medications Current Medications Acetaminophen (Acetaminophen 325 Mg Tablet) 650 mg PO Q6H PRN PRN Reason: Headache/Pain Mild Scale (1-3) Al Hydroxide/Mg Hydroxide (Magnesium Hydrox/Alum Hydrox 30 Ml Oral.Susp) 30 ml PO Q6H PRN PRN Reason: Heartburn/Nausea Clozapine (Clozapine 25 Mg Tablet) 50 mg PO BEDTIME KYLE Last Admin: 10/15/23 21:12 Dose: 50 mg Hydroxyzine HCl (Hydroxyzine Hcl 25 Mg Tablet) 25 mg PO Q6H PRN PRN Reason: Anxiety Last Admin: 10/13/23 13:08 Dose: 25 mg Magnesium Hydroxide (Milk Of Magnesia 30 Ml Oral.Susp) 30 ml PO DAILY PRN PRN Reason: Constipation Olanzapine (Olanzapine Odt 10 Mg Tab.Rapdis) 10 mg TRANSLINGU TID PRN PRN Reason: agitation Last Admin: 10/14/23 21:56 Dose: 10 mg Paliperidone (Paliperidone Er 6 Mg Tab.Er.24) 6 mg PO BEDTIME KYLE Last Admin: 10/15/23 21:11 Dose: 6 mg Trazodone HCl (Trazodone Hcl 50 Mg Tablet) 50 mg PO BEDTIME MRX1 PRN PRN Reason: Insomnia Last Admin: 10/14/23 21:56 Dose: 50 mg Allergies Allergies Allergy/AdvReac Type Severity Reaction Status Date / Time Penicillins [PENICILLINS] Allergy Unknown RASH Verified 10/11/23 17:29 Assessment & Plan Assessment & Plan (1) Schizophrenia: Status: Acute Code(s): F20.9 - Schizophrenia, unspecified (2) Cannabis use disorder: Status: Acute Code(s): F12.90 - Cannabis use, unspecified, uncomplicated Plan 10/12: retitrate clozapine. 10/13: hold on clozapine, titrate invega to 12 mg daily, then initiate WONG. due to pt's repeated failures in outpt Tx on PO medication, will try WONG. per pt and brother Hx, pt has h/o doing better on WONG. 10/14: continue clozapine 50 mg daily. increase invega to 6 mg QHS. titrate up on invega as tolerated and indicated over w/e. mental status substantially improved from admission. 10/15: Continue current treatment and plan Reason for continued inpatient stay Substantial Risk for: med/psych decompensation Time Spent With Patient Time: Total time managing care of this patient today ____ minutes.
[2023-10-16 20:00] VITALS: BP 133/66; PULSE 100; RESP 16; TEMP 36.6; O2SAT 98
[2023-10-16] MEDS: Paliperidone ER 6 MG TAB.ER.24 PO (21:17)
[2023-10-16] MEDS: cloZAPine 25 MG TABLET 50 MG PO (21:17)
--- NOTE | 2023-10-17 09:01 | HO.PSYCHPN ---
Subjective Subjective Date of Service: 10/17/23 Reason For Visit: psychosis Subjective Notes: Conditional Voluntary Interim History: Patient was seen and discussed in rounds today. Records and plans were reviewed. He is continuing to show signs of improvement. Eating and sleeping adequately and affect has been more bright and varied. Continues to have some response to internal stimuli. No complaints or side effects. No changes were made today Review of Systems Review of Systems Yes unobtainable due to endotracheal tube Mental Status Exam Mental Status Exam Narrative: In today's visit he is alert, oriented and pleasant. Normal speech. Moderate eye contact. Appropriate affect. No signs of psychosis. Possible thought blocking. No SI/HI. Some response to internal stimuli. Cognitively is intact. Judgment is intact. Diagnostics Vital Signs (24Hr): Vital Signs - 24 hr 10/16/23 20:00 Temperature 97.9 F Pulse Rate 100 Respiratory Rate 16 Blood Pressure 133/66 Pulse Oximetry 98 Oxygen Delivery Method Room Air BMI result Body Mass Index 45.1 Labs 10/11/23 21:47 10/11/23 21:47 Medications Medications Current Medications Acetaminophen (Acetaminophen 325 Mg Tablet) 650 mg PO Q6H PRN PRN Reason: Headache/Pain Mild Scale (1-3) Al Hydroxide/Mg Hydroxide (Magnesium Hydrox/Alum Hydrox 30 Ml Oral.Susp) 30 ml PO Q6H PRN PRN Reason: Heartburn/Nausea Clozapine (Clozapine 25 Mg Tablet) 50 mg PO BEDTIME KYLE Last Admin: 10/16/23 21:17 Dose: 50 mg Hydroxyzine HCl (Hydroxyzine Hcl 25 Mg Tablet) 25 mg PO Q6H PRN PRN Reason: Anxiety Last Admin: 10/13/23 13:08 Dose: 25 mg Magnesium Hydroxide (Milk Of Magnesia 30 Ml Oral.Susp) 30 ml PO DAILY PRN PRN Reason: Constipation Olanzapine (Olanzapine Odt 10 Mg Tab.Rapdis) 10 mg TRANSLINGU TID PRN PRN Reason: agitation Last Admin: 10/14/23 21:56 Dose: 10 mg Paliperidone (Paliperidone Er 6 Mg Tab.Er.24) 6 mg PO BEDTIME KYLE Last Admin: 10/16/23 21:17 Dose: 6 mg Trazodone HCl (Trazodone Hcl 50 Mg Tablet) 50 mg PO BEDTIME MRX1 PRN PRN Reason: Insomnia Last Admin: 10/14/23 21:56 Dose: 50 mg Allergies Allergies Allergy/AdvReac Type Severity Reaction Status Date / Time Penicillins [PENICILLINS] Allergy Unknown RASH Verified 10/11/23 17:29 Assessment & Plan Assessment & Plan (1) Schizophrenia: Status: Acute Code(s): F20.9 - Schizophrenia, unspecified (2) Cannabis use disorder: Status: Acute Code(s): F12.90 - Cannabis use, unspecified, uncomplicated Plan 10/12: retitrate clozapine. 10/13: hold on clozapine, titrate invega to 12 mg daily, then initiate WONG. due to pt's repeated failures in outpt Tx on PO medication, will try WONG. per pt and brother Hx, pt has h/o doing better on WONG. 10/14: continue clozapine 50 mg daily. increase invega to 6 mg QHS. titrate up on invega as tolerated and indicated over w/e. mental status substantially improved from admission. 10/15: Continue current treatment and plan 10/16: Continue current regimen and plans Reason for continued inpatient stay Substantial Risk for: rapid decompensation Time Spent With Patient Time: Total time managing care of this patient today ____ minutes.
[2023-10-17 20:00] VITALS: BP 119/79; PULSE 110; RESP 16; TEMP 36.4; O2SAT 97
[2023-10-17] MEDS: cloZAPine 25 MG TABLET 50 MG PO (22:09)
[2023-10-17] MEDS: Paliperidone ER 6 MG TAB.ER.24 PO (22:10)
[2023-10-17] MEDS: traZODone HCL 50 MG TABLET PO (22:10)
[2023-10-18 07:47] VITALS: BP 156/84; PULSE 127; RESP 14; TEMP 35.8; O2SAT 97
[2023-10-18 10:09] LABS: Neut%MD 57.5 %; Neutrophils Absolute Auto 4.4 x10*3/uL (2.0-8.3); WBCANC 7.6 X10*3/uL
[2023-10-18 10:19] LABS: MANUAL DIFF FLAG NO
[2023-10-18 10:22] LABS: Basophils Percent Auto 0.4 % (0-2); Eosinophils Absolute Auto 0.4 X10*3/uL (0.0-0.4); Eosinophils Percent Auto 5.4 % (0-4); Hematocrit 40.6 % (42.0-52.0); Imm Gran Abs Auto 0.02 X10*3/uL (0.00-0.03); Imm Gran Pct Auto 0.3 % (0.0-0.4); Lymphocytes Absolute Auto 2.3 X10*3/uL (1.2-4.9); Lymphocytes Percent Auto 29.7 % (20-40); Mean Corpuscular HGB Conc 34.5 g/dl (31.0-36.0); Mean Corpuscular Hemoglobin 30.9 pg (27.0-33.0); Mean Corpuscular Volume 89.6 fL (80.0-98.0); Mean Platelet Volume 9.7 fL (9.4-12.4); Monocytes Absolute Auto 0.5 X10*3/uL (0.1-1.2); Monocytes Percent Auto 6.7 % (2-11); Neutrophils Absolute Auto 4.4 x10*3/uL (2.0-8.3); Neutrophils Percent Auto 57.5 % (45-73); Platelet Count 277 X10*3/uL (160-400); Red Blood Count 4.53 X10*6/uL (4.60-5.80); Red Cell Distribution Width 12.5 % (11.0-16.0); White Blood Count 7.7 X10*3/uL (4.8-10.8)
--- NOTE | 2023-10-18 16:39 | HO.PSYCHPN ---
Subjective Subjective Date of Service: 10/18/23 Reason For Visit: psychosis Interim History: sleeping on mattress on floor now. appears much closer to how he typically does during hospitalizations. informed of plan to switch from clozaril to invega, increase invega to 9 mg tonight. Mental Status Exam Mental Status Exam Narrative: In today's visit he is alert, oriented and pleasant. Normal speech. Moderate eye contact. Appropriate affect. No signs of psychosis. Possible thought blocking. No SI/HI. Some response to internal stimuli. Cognitively is intact. Judgment is intact. Diagnostics Vital Signs (24Hr): Vital Signs - 24 hr 10/17/23 20:00 10/18/23 07:47 Temperature 97.6 F 96.4 F L Pulse Rate 110 H 127 H Respiratory Rate 16 14 Blood Pressure 119/79 156/84 H Pulse Oximetry 97 97 Oxygen Delivery Method Room Air Room Air BMI result Body Mass Index 45.1 Labs 10/18/23 10:15 10/11/23 21:47 Labs: Laboratory Results - last 48 hr 10/18/23 10/18/23 09:20 10:15 WBC 7.7 RBC 4.53 L Hgb 14.0 Hct 40.6 L MCV 89.6 MCH 30.9 MCHC 34.5 RDW 12.5 Plt Count 277 MPV 9.7 Immature Gran % (Auto) 0.3 Neut % (Auto) 57.5 Lymph % (Auto) 29.7 [place] % (Auto) 6.7 Eos % (Auto) 5.4 H Baso % (Auto) 0.4 Lymph # (Auto) 2.3 [place] # (Auto) 0.5 Eos # (Auto) 0.4 Baso # (Auto) 0.0 Abs Immat Gran (auto) 0.02 Absolute Neuts (auto) 4.4 4.4 Absolute Nucleated RBC 0.000 Nucleated RBC % (auto) 0.0 Medications Medications Current Medications Acetaminophen (Acetaminophen 325 Mg Tablet) 650 mg PO Q6H PRN PRN Reason: Headache/Pain Mild Scale (1-3) Al Hydroxide/Mg Hydroxide (Magnesium Hydrox/Alum Hydrox 30 Ml Oral.Susp) 30 ml PO Q6H PRN PRN Reason: Heartburn/Nausea Clozapine (Clozapine 25 Mg Tablet) 50 mg PO BEDTIME KYLE Last Admin: 10/17/23 22:09 Dose: 50 mg Hydroxyzine HCl (Hydroxyzine Hcl 25 Mg Tablet) 25 mg PO Q6H PRN PRN Reason: Anxiety Last Admin: 10/13/23 13:08 Dose: 25 mg Magnesium Hydroxide (Milk Of Magnesia 30 Ml Oral.Susp) 30 ml PO DAILY PRN PRN Reason: Constipation Olanzapine (Olanzapine Odt 10 Mg Tab.Rapdis) 10 mg TRANSLINGU TID PRN PRN Reason: agitation Last Admin: 10/14/23 21:56 Dose: 10 mg Paliperidone (Paliperidone Er 6 Mg Tab.Er.24) 6 mg PO BEDTIME KYLE Last Admin: 10/17/23 22:10 Dose: 6 mg Trazodone HCl (Trazodone Hcl 50 Mg Tablet) 50 mg PO BEDTIME MRX1 PRN PRN Reason: Insomnia Last Admin: 10/17/23 22:10 Dose: 50 mg Allergies Allergies Allergy/AdvReac Type Severity Reaction Status Date / Time Penicillins [PENICILLINS] Allergy Unknown RASH Verified 10/11/23 17:29 Assessment & Plan Assessment & Plan (1) Schizophrenia: Status: Acute Code(s): F20.9 - Schizophrenia, unspecified (2) Cannabis use disorder: Status: Acute Code(s): F12.90 - Cannabis use, unspecified, uncomplicated Plan 10/12: retitrate clozapine. 10/13: hold on clozapine, titrate invega to 12 mg daily, then initiate WONG. due to pt's repeated failures in outpt Tx on PO medication, will try WONG. per pt and brother Hx, pt has h/o doing better on WONG. 10/14: continue clozapine 50 mg daily. increase invega to 6 mg QHS. titrate up on invega as tolerated and indicated over w/e. mental status substantially improved from admission. 10/15: Continue current treatment and plan 10/16: Continue current regimen and plans 10/17: increase invega to 9 mg tonight. continue clozaril 50. much improved from admission. Reason for continued inpatient stay Substantial Risk for: inability to function and rapid decompensation Time Spent With Patient Time: Total time managing care of this patient today ____ minutes.
[2023-10-18 19:50] VITALS: BP 137/70; PULSE 118; RESP 18; TEMP 36; O2SAT 96
[2023-10-18] MEDS: cloZAPine 25 MG TABLET 50 MG PO (22:01)
[2023-10-18] MEDS: traZODone HCL 50 MG TABLET PO (22:01)
[2023-10-18] MEDS: Paliperidone ER 9 MG TAB.ER.24 PO (22:01)
[2023-10-19 06:13] LABS: Clozapine (Clozaril) 16 mcg/L; Norclozapine 16 mcg/L (25-400)
--- NOTE | 2023-10-19 14:35 | HO.PSYCHPN ---
Subjective Subjective Date of Service: 10/19/23 Reason For Visit: psychosis Interim History: no change in presentation. no complaints or requests. per staff, denies dep/anx/SI/HI. flat, withdrawn, guarded. AH much less. slept 7 hours. taking meds. Mental Status Exam Mental Status Exam Narrative: In today's visit he is alert, oriented and pleasant. Normal speech. Moderate eye contact. Appropriate affect. No signs of psychosis. Possible thought blocking. No SI/HI. Some response to internal stimuli. Cognitively is intact. Judgment is intact. Diagnostics Vital Signs (24Hr): Vital Signs - 24 hr 10/18/23 19:50 Temperature 96.8 F Pulse Rate 118 H Respiratory Rate 18 Blood Pressure 137/70 Pulse Oximetry 96 Oxygen Delivery Method Room Air BMI result Body Mass Index 45.1 Labs 10/18/23 10:15 10/11/23 21:47 Labs: Laboratory Results - last 48 hr 10/12/23 10/18/23 10/18/23 00:17 09:20 10:15 WBC 7.7 RBC 4.53 L Hgb 14.0 Hct 40.6 L MCV 89.6 MCH 30.9 MCHC 34.5 RDW 12.5 Plt Count 277 MPV 9.7 Immature Gran % (Auto) 0.3 Neut % (Auto) 57.5 Lymph % (Auto) 29.7 [place] % (Auto) 6.7 Eos % (Auto) 5.4 H Baso % (Auto) 0.4 Lymph # (Auto) 2.3 [place] # (Auto) 0.5 Eos # (Auto) 0.4 Baso # (Auto) 0.0 Abs Immat Gran (auto) 0.02 Absolute Neuts (auto) 4.4 4.4 Absolute Nucleated RBC 0.000 Nucleated RBC % (auto) 0.0 Clozapine 16 Norclozapine 16 L Medications Medications Current Medications Acetaminophen (Acetaminophen 325 Mg Tablet) 650 mg PO Q6H PRN PRN Reason: Headache/Pain Mild Scale (1-3) Al Hydroxide/Mg Hydroxide (Magnesium Hydrox/Alum Hydrox 30 Ml Oral.Susp) 30 ml PO Q6H PRN PRN Reason: Heartburn/Nausea Clozapine (Clozapine 25 Mg Tablet) 50 mg PO BEDTIME KYLE Last Admin: 10/18/23 22:01 Dose: 50 mg Hydroxyzine HCl (Hydroxyzine Hcl 25 Mg Tablet) 25 mg PO Q6H PRN PRN Reason: Anxiety Last Admin: 10/13/23 13:08 Dose: 25 mg Magnesium Hydroxide (Milk Of Magnesia 30 Ml Oral.Susp) 30 ml PO DAILY PRN PRN Reason: Constipation Olanzapine (Olanzapine Odt 10 Mg Tab.Rapdis) 10 mg TRANSLINGU TID PRN PRN Reason: agitation Last Admin: 10/14/23 21:56 Dose: 10 mg Paliperidone (Paliperidone Er 9 Mg Tab.Er.24) 9 mg PO BEDTIME KYLE Last Admin: 10/18/23 22:01 Dose: 9 mg Trazodone HCl (Trazodone Hcl 50 Mg Tablet) 50 mg PO BEDTIME MRX1 PRN PRN Reason: Insomnia Last Admin: 10/18/23 22:01 Dose: 50 mg Allergies Allergies Allergy/AdvReac Type Severity Reaction Status Date / Time Penicillins [PENICILLINS] Allergy Unknown RASH Verified 10/11/23 17:29 Assessment & Plan Assessment & Plan (1) Schizophrenia: Status: Acute Code(s): F20.9 - Schizophrenia, unspecified (2) Cannabis use disorder: Status: Acute Code(s): F12.90 - Cannabis use, unspecified, uncomplicated Plan 10/12: retitrate clozapine. 10/13: hold on clozapine, titrate invega to 12 mg daily, then initiate WONG. due to pt's repeated failures in outpt Tx on PO medication, will try WONG. per pt and brother Hx, pt has h/o doing better on WOGN. 10/14: continue clozapine 50 mg daily. increase invega to 6 mg QHS. titrate up on invega as tolerated and indicated over w/e. mental status substantially improved from admission. 10/15: Continue current treatment and plan 10/16: Continue current regimen and plans 10/17: increase invega to 9 mg tonight. continue clozaril 50. much improved from admission. 10/18: continue current mgmt. plan to increase invega to 12 after several nights, then start sustenna after several more. much improved from admission. Reason for continued inpatient stay Substantial Risk for: harm to self and inability to function Time Spent With Patient Time: Total time managing care of this patient today ____ minutes.
[2023-10-19 20:00] VITALS: BP 136/63; PULSE 100; RESP 16; TEMP 36.5; O2SAT 98
[2023-10-19] MEDS: Paliperidone ER 9 MG TAB.ER.24 PO (21:39)
[2023-10-19] MEDS: cloZAPine 25 MG TABLET 50 MG PO (21:39)
[2023-10-19] MEDS: traZODone HCL 50 MG TABLET PO (21:39)
[2023-10-20 08:00] VITALS: BP 103/60; PULSE 75; RESP 20; TEMP 37; O2SAT 97
--- NOTE | 2023-10-20 13:49 | HO.PSYCHPN ---
Subjective Subjective Date of Service: 10/20/23 Reason For Visit: psychosis Interim History: improved reaction time, linear but terse. per staff, in bed all day. constricted. not social. taking meds. slept 8 hours. Mental Status Exam Mental Status Exam Narrative: In today's visit he is alert, oriented and pleasant. Normal speech. Moderate eye contact. Appropriate affect. No signs of psychosis. Possible thought blocking. No SI/HI. Some response to internal stimuli. Cognitively is intact. Judgment is intact. Diagnostics Vital Signs (24Hr): Vital Signs - 24 hr 10/19/23 20:00 10/20/23 08:00 Temperature 97.7 F 98.6 F Pulse Rate 100 75 Respiratory Rate 16 20 Blood Pressure 136/63 103/60 Pulse Oximetry 98 97 Oxygen Delivery Method Room Air Room Air BMI result Body Mass Index 45.1 Labs 10/18/23 10:15 10/11/23 21:47 Labs: Laboratory Results - last 48 hr 10/12/23 00:17 Clozapine 16 Norclozapine 16 L Medications Medications Current Medications Acetaminophen (Acetaminophen 325 Mg Tablet) 650 mg PO Q6H PRN PRN Reason: Headache/Pain Mild Scale (1-3) Al Hydroxide/Mg Hydroxide (Magnesium Hydrox/Alum Hydrox 30 Ml Oral.Susp) 30 ml PO Q6H PRN PRN Reason: Heartburn/Nausea Clozapine (Clozapine 25 Mg Tablet) 50 mg PO BEDTIME KYLE Last Admin: 10/19/23 21:39 Dose: 50 mg Hydroxyzine HCl (Hydroxyzine Hcl 25 Mg Tablet) 25 mg PO Q6H PRN PRN Reason: Anxiety Last Admin: 10/13/23 13:08 Dose: 25 mg Magnesium Hydroxide (Milk Of Magnesia 30 Ml Oral.Susp) 30 ml PO DAILY PRN PRN Reason: Constipation Olanzapine (Olanzapine Odt 10 Mg Tab.Rapdis) 10 mg TRANSLINGU TID PRN PRN Reason: agitation Last Admin: 10/14/23 21:56 Dose: 10 mg Paliperidone (Paliperidone Er 9 Mg Tab.Er.24) 9 mg PO BEDTIME KYLE Last Admin: 10/19/23 21:39 Dose: 9 mg Trazodone HCl (Trazodone Hcl 50 Mg Tablet) 50 mg PO BEDTIME MRX1 PRN PRN Reason: Insomnia Last Admin: 10/19/23 21:39 Dose: 50 mg Allergies Allergies Allergy/AdvReac Type Severity Reaction Status Date / Time Penicillins [PENICILLINS] Allergy Unknown RASH Verified 10/11/23 17:29 Assessment & Plan Assessment & Plan (1) Schizophrenia: Status: Acute Code(s): F20.9 - Schizophrenia, unspecified (2) Cannabis use disorder: Status: Acute Code(s): F12.90 - Cannabis use, unspecified, uncomplicated Plan 10/12: retitrate clozapine. 10/13: hold on clozapine, titrate invega to 12 mg daily, then initiate WONG. due to pt's repeated failures in outpt Tx on PO medication, will try WONG. per pt and brother Hx, pt has h/o doing better on WONG. 10/14: continue clozapine 50 mg daily. increase invega to 6 mg QHS. titrate up on invega as tolerated and indicated over w/e. mental status substantially improved from admission. 10/15: Continue current treatment and plan 10/16: Continue current regimen and plans 10/17: increase invega to 9 mg tonight. continue clozaril 50. much improved from admission. 10/18: continue current mgmt. plan to increase invega to 12 after several nights, then start sustenna after several more. much improved from admission. 10/19: improved from admission. continue current mgmt. increase invega to 12 mg as of tomorrow night. Reason for continued inpatient stay Substantial Risk for: inability to function and rapid decompensation Time Spent With Patient Time: Total time managing care of this patient today _25___ minutes.
[2023-10-20 20:00] VITALS: BP 119/69; PULSE 132; RESP 18; TEMP 36.6; O2SAT 97
[2023-10-20] MEDS: Paliperidone ER 9 MG TAB.ER.24 PO (21:33)
[2023-10-20] MEDS: cloZAPine 25 MG TABLET 50 MG PO (21:34)
[2023-10-20 22:00] VITALS: PULSE 112
[2023-10-20] MEDS: traZODone HCL 50 MG TABLET PO (23:10)
[2023-10-21 07:00] VITALS: BMI 44.3
[2023-10-21 08:15] VITALS: BP 112/60; PULSE 82; RESP 18; TEMP 37.1; O2SAT 96
--- NOTE | 2023-10-21 13:56 | HO.PSYCHPN ---
Subjective Subjective Date of Service: 10/21/23 Reason For Visit: psychosis Interim History: appears at usual hospital baseline. lying on mattress on floor, denying any problems, no questions or complaints. per staff, flat, withdrawn. taking meds, sleeping all day. +RIS, pacing eves. Mental Status Exam Mental Status Exam Narrative: In today's visit he is alert, oriented and pleasant. Normal speech. Moderate eye contact. Appropriate affect. No signs of psychosis. No SI/HI. Some response to internal stimuli. Cognitively is intact. Judgment is intact. Diagnostics Vital Signs (24Hr): Vital Signs - 24 hr 10/20/23 20:00 10/20/23 22:00 10/21/23 08:15 Temperature 97.9 F 98.8 F Pulse Rate 132 H 112 H 82 Respiratory Rate 18 18 Blood Pressure 119/69 112/60 Pulse Oximetry 97 96 Oxygen Delivery Method Room Air Room Air BMI result Body Mass Index 44.3 Labs 10/18/23 10:15 10/11/23 21:47 Medications Medications Current Medications Acetaminophen (Acetaminophen 325 Mg Tablet) 650 mg PO Q6H PRN PRN Reason: Headache/Pain Mild Scale (1-3) Al Hydroxide/Mg Hydroxide (Magnesium Hydrox/Alum Hydrox 30 Ml Oral.Susp) 30 ml PO Q6H PRN PRN Reason: Heartburn/Nausea Clozapine (Clozapine 25 Mg Tablet) 50 mg PO BEDTIME KYLE Last Admin: 10/20/23 21:34 Dose: 50 mg Hydroxyzine HCl (Hydroxyzine Hcl 25 Mg Tablet) 25 mg PO Q6H PRN PRN Reason: Anxiety Last Admin: 10/13/23 13:08 Dose: 25 mg Magnesium Hydroxide (Milk Of Magnesia 30 Ml Oral.Susp) 30 ml PO DAILY PRN PRN Reason: Constipation Olanzapine (Olanzapine Odt 10 Mg Tab.Rapdis) 10 mg TRANSLINGU TID PRN PRN Reason: agitation Last Admin: 10/14/23 21:56 Dose: 10 mg Paliperidone (Paliperidone Er 9 Mg Tab.Er.24) 9 mg PO BEDTIME KYLE Last Admin: 10/20/23 21:33 Dose: 9 mg Trazodone HCl (Trazodone Hcl 50 Mg Tablet) 50 mg PO BEDTIME MRX1 PRN PRN Reason: Insomnia Last Admin: 10/20/23 23:10 Dose: 50 mg Allergies Allergies Allergy/AdvReac Type Severity Reaction Status Date / Time Penicillins [PENICILLINS] Allergy Unknown RASH Verified 10/11/23 17:29 Assessment & Plan Assessment & Plan (1) Schizophrenia: Status: Acute Code(s): F20.9 - Schizophrenia, unspecified (2) Cannabis use disorder: Status: Acute Code(s): F12.90 - Cannabis use, unspecified, uncomplicated Plan 10/12: retitrate clozapine. 10/13: hold on clozapine, titrate invega to 12 mg daily, then initiate WONG. due to pt's repeated failures in outpt Tx on PO medication, will try WONG. per pt and brother Hx, pt has h/o doing better on WONG. 10/14: continue clozapine 50 mg daily. increase invega to 6 mg QHS. titrate up on invega as tolerated and indicated over w/e. mental status substantially improved from admission. 10/15: Continue current treatment and plan 10/16: Continue current regimen and plans 10/17: increase invega to 9 mg tonight. continue clozaril 50. much improved from admission. 10/18: continue current mgmt. plan to increase invega to 12 after several nights, then start sustenna after several more. much improved from admission. 10/19: improved from admission. continue current mgmt. 10/20: gains maintained. one more night at 9 mg, then to 12 mg invega as of tomorrow night. Reason for continued inpatient stay Substantial Risk for: inability to function and rapid decompensation Time Spent With Patient Time: Total time managing care of this patient today ____ minutes.
[2023-10-21 20:00] VITALS: BP 119/60; PULSE 104; RESP 18; TEMP 37.1; O2SAT 96
[2023-10-21] MEDS: cloZAPine 25 MG TABLET 50 MG PO (21:23)
[2023-10-21] MEDS: Paliperidone ER 9 MG TAB.ER.24 PO (21:23)
[2023-10-21] MEDS: traZODone HCL 50 MG TABLET PO (21:24)
[2023-10-22 08:00] VITALS: BP 120/75; PULSE 89; RESP 16; TEMP 36.5; O2SAT 96
--- NOTE | 2023-10-22 14:46 | HO.PSYCHPN ---
Subjective Subjective Date of Service: 10/22/23 Reason For Visit: psychosis Interim History: no change in presentation. quick responses, denies all problems, no requests. per staff, blunted, guarded. taking meds, pacing, RIS. got traz at HS. slept about 7 hours. Mental Status Exam Mental Status Exam Narrative: In today's visit he is alert, oriented and pleasant. Normal speech. Moderate eye contact. Appropriate affect. No signs of psychosis. No SI/HI. Some response to internal stimuli. Cognitively is intact. Judgment is intact. Diagnostics Vital Signs (24Hr): Vital Signs - 24 hr 10/21/23 20:00 10/22/23 08:00 Temperature 98.7 F 97.7 F Pulse Rate 104 H 89 Respiratory Rate 18 16 Blood Pressure 119/60 120/75 Pulse Oximetry 96 96 Oxygen Delivery Method Room Air Room Air BMI result Body Mass Index 44.3 Labs 10/18/23 10:15 10/11/23 21:47 Medications Medications Current Medications Acetaminophen (Acetaminophen 325 Mg Tablet) 650 mg PO Q6H PRN PRN Reason: Headache/Pain Mild Scale (1-3) Al Hydroxide/Mg Hydroxide (Magnesium Hydrox/Alum Hydrox 30 Ml Oral.Susp) 30 ml PO Q6H PRN PRN Reason: Heartburn/Nausea Clozapine (Clozapine 25 Mg Tablet) 25 mg PO BEDTIME KYLE Hydroxyzine HCl (Hydroxyzine Hcl 25 Mg Tablet) 25 mg PO Q6H PRN PRN Reason: Anxiety Last Admin: 10/13/23 13:08 Dose: 25 mg Magnesium Hydroxide (Milk Of Magnesia 30 Ml Oral.Susp) 30 ml PO DAILY PRN PRN Reason: Constipation Olanzapine (Olanzapine Odt 10 Mg Tab.Rapdis) 10 mg TRANSLINGU TID PRN PRN Reason: agitation Last Admin: 10/14/23 21:56 Dose: 10 mg Paliperidone (Paliperidone Er 6 Mg Tab.Er.24) 12 mg PO BEDTIME KYLE Trazodone HCl (Trazodone Hcl 50 Mg Tablet) 50 mg PO BEDTIME MRX1 PRN PRN Reason: Insomnia Last Admin: 10/21/23 21:24 Dose: 50 mg Allergies Allergies Allergy/AdvReac Type Severity Reaction Status Date / Time Penicillins [PENICILLINS] Allergy Unknown RASH Verified 10/11/23 17:29 Assessment & Plan Assessment & Plan (1) Schizophrenia: Status: Acute Code(s): F20.9 - Schizophrenia, unspecified (2) Cannabis use disorder: Status: Acute Code(s): F12.90 - Cannabis use, unspecified, uncomplicated Plan 10/12: retitrate clozapine. 10/13: hold on clozapine, titrate invega to 12 mg daily, then initiate WONG. due to pt's repeated failures in outpt Tx on PO medication, will try WONG. per pt and brother Hx, pt has h/o doing better on WONG. 10/14: continue clozapine 50 mg daily. increase invega to 6 mg QHS. titrate up on invega as tolerated and indicated over w/e. mental status substantially improved from admission. 10/15: Continue current treatment and plan 10/16: Continue current regimen and plans 10/17: increase invega to 9 mg tonight. continue clozaril 50. much improved from admission. 10/18: continue current mgmt. plan to increase invega to 12 after several nights, then start sustenna after several more. much improved from admission. 10/19: improved from admission. continue current mgmt. 10/20: gains maintained. one more night at 9 mg, then to 12 mg invega as of tomorrow night. 10/21: no change in presentation. decrease clozapine to 25 mg and increase paliperidone to 12 mg QHS. Reason for continued inpatient stay Substantial Risk for: inability to function and rapid decompensation Time Spent With Patient Time: Total time managing care of this patient today __25__ minutes.
[2023-10-22 20:00] VITALS: BP 113/61; PULSE 103; RESP 16; TEMP 36.8; O2SAT 98
[2023-10-22] MEDS: cloZAPine 25 MG TABLET PO (22:41)
[2023-10-22] MEDS: Paliperidone ER 6 MG TAB.ER.24 12 MG PO (22:41)
[2023-10-22] MEDS: traZODone HCL 50 MG TABLET PO (22:43)
[2023-10-23 07:45] VITALS: BP 115/63; PULSE 86; RESP 16; TEMP 36.6; O2SAT 96
--- NOTE | 2023-10-23 08:56 | HO.PSYCHPN ---
Subjective Subjective Date of Service: 10/23/23 Reason For Visit: psychosis Interim History: no change in presentation. quick responses, denies all problems, no requests. per staff, blunted, guarded. taking meds, pacing, RIS. got traz at HS. slept about 7 hours. Review of Systems Review of Systems Yes all other systems are reviewed and are negative and unobtainable due to endotracheal tube Mental Status Exam Mental Status Exam Narrative: In today's visit he is alert, oriented and pleasant. Normal speech. Moderate eye contact. Appropriate affect. No signs of psychosis. No SI/HI. Some response to internal stimuli. Cognitively is intact. Judgment is intact. Diagnostics Vital Signs (24Hr): Vital Signs - 24 hr 10/22/23 20:00 10/23/23 07:45 Temperature 98.2 F 97.9 F Pulse Rate 103 H 86 Respiratory Rate 16 16 Blood Pressure 113/61 115/63 Pulse Oximetry 98 96 Oxygen Delivery Method Room Air Room Air BMI result Body Mass Index 44.3 Labs 10/18/23 10:15 10/11/23 21:47 Medications Medications Current Medications Acetaminophen (Acetaminophen 325 Mg Tablet) 650 mg PO Q6H PRN PRN Reason: Headache/Pain Mild Scale (1-3) Al Hydroxide/Mg Hydroxide (Magnesium Hydrox/Alum Hydrox 30 Ml Oral.Susp) 30 ml PO Q6H PRN PRN Reason: Heartburn/Nausea Clozapine (Clozapine 25 Mg Tablet) 25 mg PO BEDTIME KYLE Last Admin: 10/22/23 22:41 Dose: 25 mg Hydroxyzine HCl (Hydroxyzine Hcl 25 Mg Tablet) 25 mg PO Q6H PRN PRN Reason: Anxiety Last Admin: 10/13/23 13:08 Dose: 25 mg Magnesium Hydroxide (Milk Of Magnesia 30 Ml Oral.Susp) 30 ml PO DAILY PRN PRN Reason: Constipation Olanzapine (Olanzapine Odt 10 Mg Tab.Rapdis) 10 mg TRANSLINGU TID PRN PRN Reason: agitation Last Admin: 10/14/23 21:56 Dose: 10 mg Paliperidone (Paliperidone Er 6 Mg Tab.Er.24) 12 mg PO BEDTIME KYLE Last Admin: 10/22/23 22:41 Dose: 12 mg Trazodone HCl (Trazodone Hcl 50 Mg Tablet) 50 mg PO BEDTIME MRX1 PRN PRN Reason: Insomnia Last Admin: 10/22/23 22:43 Dose: 50 mg Allergies Allergies Allergy/AdvReac Type Severity Reaction Status Date / Time Penicillins [PENICILLINS] Allergy Unknown RASH Verified 10/11/23 17:29 Assessment & Plan Assessment & Plan (1) Schizophrenia: Status: Acute Code(s): F20.9 - Schizophrenia, unspecified (2) Cannabis use disorder: Status: Acute Code(s): F12.90 - Cannabis use, unspecified, uncomplicated Plan 10/12: retitrate clozapine. 10/13: hold on clozapine, titrate invega to 12 mg daily, then initiate WONG. due to pt's repeated failures in outpt Tx on PO medication, will try WONG. per pt and brother Hx, pt has h/o doing better on WONG. 10/14: continue clozapine 50 mg daily. increase invega to 6 mg QHS. titrate up on invega as tolerated and indicated over w/e. mental status substantially improved from admission. 10/15: Continue current treatment and plan 10/16: Continue current regimen and plans 10/17: increase invega to 9 mg tonight. continue clozaril 50. much improved from admission. 10/18: continue current mgmt. plan to increase invega to 12 after several nights, then start sustenna after several more. much improved from admission. 10/19: improved from admission. continue current mgmt. 10/20: gains maintained. one more night at 9 mg, then to 12 mg invega as of tomorrow night. 10/21: no change in presentation. decrease clozapine to 25 mg and increase paliperidone to 12 mg QHS. 10/22: continue current management and treatment plan. Reason for continued inpatient stay Substantial Risk for: inability to function and rapid decompensation Time Spent With Patient Time: Total time managing care of this patient today ____ minutes.
[2023-10-23 20:48] VITALS: BP 127/62; PULSE 107; RESP 16; TEMP 36.5; O2SAT 96
[2023-10-23] MEDS: cloZAPine 25 MG TABLET PO (22:06)
[2023-10-23] MEDS: Paliperidone ER 6 MG TAB.ER.24 12 MG PO (22:06)
[2023-10-23] MEDS: traZODone HCL 50 MG TABLET PO (22:06)
[2023-10-24 07:39] VITALS: BP 111/61; PULSE 84; RESP 18; TEMP 36.4; O2SAT 96
--- NOTE | 2023-10-24 15:59 | HO.PSYCHPN ---
Subjective Subjective Date of Service: 10/24/23 Reason For Visit: psychosis Interim History: no change in presentation. quick responses, denies all problems, no requests. per staff, blunted, guarded. taking meds, pacing, RIS. got traz at HS. slept well. Isolates. Review of Systems Review of Systems Yes all other systems are reviewed and are negative and unobtainable due to endotracheal tube Mental Status Exam Mental Status Exam Narrative: In today's visit he is alert, oriented and pleasant. Normal speech. Moderate eye contact. Appropriate affect. No signs of psychosis. No SI/HI. Some response to internal stimuli. Cognitively is intact. Judgment is intact. Diagnostics Vital Signs (24Hr): Vital Signs - 24 hr 10/23/23 20:48 10/24/23 07:39 Temperature 97.7 F 97.6 F Pulse Rate 107 H 84 Respiratory Rate 16 18 Blood Pressure 127/62 111/61 Pulse Oximetry 96 96 Oxygen Delivery Method Room Air Room Air BMI result Body Mass Index 44.3 Labs 10/18/23 10:15 10/11/23 21:47 Medications Medications Current Medications Acetaminophen (Acetaminophen 325 Mg Tablet) 650 mg PO Q6H PRN PRN Reason: Headache/Pain Mild Scale (1-3) Al Hydroxide/Mg Hydroxide (Magnesium Hydrox/Alum Hydrox 30 Ml Oral.Susp) 30 ml PO Q6H PRN PRN Reason: Heartburn/Nausea Clozapine (Clozapine 25 Mg Tablet) 25 mg PO BEDTIME KYLE Last Admin: 10/23/23 22:06 Dose: 25 mg Hydroxyzine HCl (Hydroxyzine Hcl 25 Mg Tablet) 25 mg PO Q6H PRN PRN Reason: Anxiety Last Admin: 10/13/23 13:08 Dose: 25 mg Magnesium Hydroxide (Milk Of Magnesia 30 Ml Oral.Susp) 30 ml PO DAILY PRN PRN Reason: Constipation Olanzapine (Olanzapine Odt 10 Mg Tab.Rapdis) 10 mg TRANSLINGU TID PRN PRN Reason: agitation Last Admin: 10/14/23 21:56 Dose: 10 mg Paliperidone (Paliperidone Er 6 Mg Tab.Er.24) 12 mg PO BEDTIME KYLE Last Admin: 10/23/23 22:06 Dose: 12 mg Trazodone HCl (Trazodone Hcl 50 Mg Tablet) 50 mg PO BEDTIME MRX1 PRN PRN Reason: Insomnia Last Admin: 10/23/23 22:06 Dose: 50 mg Allergies Allergies Allergy/AdvReac Type Severity Reaction Status Date / Time Penicillins [PENICILLINS] Allergy Unknown RASH Verified 10/11/23 17:29 Assessment & Plan Assessment & Plan (1) Schizophrenia: Status: Acute Code(s): F20.9 - Schizophrenia, unspecified (2) Cannabis use disorder: Status: Acute Code(s): F12.90 - Cannabis use, unspecified, uncomplicated Plan 10/12: retitrate clozapine. 10/13: hold on clozapine, titrate invega to 12 mg daily, then initiate WONG. due to pt's repeated failures in outpt Tx on PO medication, will try WONG. per pt and brother Hx, pt has h/o doing better on WONG. 10/14: continue clozapine 50 mg daily. increase invega to 6 mg QHS. titrate up on invega as tolerated and indicated over w/e. mental status substantially improved from admission. 10/15: Continue current treatment and plan 10/16: Continue current regimen and plans 10/17: increase invega to 9 mg tonight. continue clozaril 50. much improved from admission. 10/18: continue current mgmt. plan to increase invega to 12 after several nights, then start sustenna after several more. much improved from admission. 10/19: improved from admission. continue current mgmt. 10/20: gains maintained. one more night at 9 mg, then to 12 mg invega as of tomorrow night. 10/21: no change in presentation. decrease clozapine to 25 mg and increase paliperidone to 12 mg QHS. 10/22: continue current management and treatment plan. 10/23: continue current management and treatment plan. Reason for continued inpatient stay Substantial Risk for: inability to function and rapid decompensation Time Spent With Patient Time: Total time managing care of this patient today ____ minutes.
[2023-10-24 21:45] VITALS: BP 117/67; PULSE 102; RESP 18; TEMP 36.8; O2SAT 97
[2023-10-24] MEDS: Paliperidone ER 6 MG TAB.ER.24 12 MG PO (22:11)
[2023-10-24] MEDS: cloZAPine 25 MG TABLET PO (22:11)
[2023-10-25] MEDS: OLANZapine ODT 10 MG TAB.RAPDIS TRANSLINGU (05:05)
[2023-10-25 07:45] LABS: Neut%MD 54.6 %; Neutrophils Absolute Auto 5.3 x10*3/uL (2.0-8.3); WBCANC 9.8 X10*3/uL
[2023-10-25 07:55] VITALS: BP 140/61; PULSE 91; RESP 16; TEMP 36.7; O2SAT 95
--- NOTE | 2023-10-25 10:50 | HO.PSYCHPN ---
Subjective Subjective Date of Service: 10/25/23 Reason For Visit: psychosis Interim History: no change in presentation. Hoping to leave because his dog has a vet appointment. Primary team considering Invega Sustenna once it is clear how he has responded to PO Invega. Otherwise, he remains with short answers, and denies symptoms, denies all problems, no requests. per staff, blunted, guarded. taking meds, pacing, RIS. Isolates. Review of Systems Review of Systems Yes all other systems are reviewed and are negative and unobtainable due to endotracheal tube Mental Status Exam Mental Status Exam Narrative: In today's visit he is alert, oriented and pleasant. Normal speech. Moderate eye contact. Appropriate affect. No signs of psychosis. No SI/HI. Some response to internal stimuli. Cognitively is intact. Judgment is intact. Diagnostics Vital Signs (24Hr): Vital Signs - 24 hr 10/24/23 21:45 10/25/23 07:55 Temperature 98.3 F 98.0 F Pulse Rate 102 H 91 Respiratory Rate 18 16 Blood Pressure 117/67 140/61 H Pulse Oximetry 97 95 Oxygen Delivery Method Room Air Room Air BMI result Body Mass Index 44.3 Labs 10/18/23 10:15 10/11/23 21:47 Labs: Laboratory Results - last 48 hr 10/25/23 07:28 Absolute Neuts (auto) 5.3 Medications Medications Current Medications Acetaminophen (Acetaminophen 325 Mg Tablet) 650 mg PO Q6H PRN PRN Reason: Headache/Pain Mild Scale (1-3) Al Hydroxide/Mg Hydroxide (Magnesium Hydrox/Alum Hydrox 30 Ml Oral.Susp) 30 ml PO Q6H PRN PRN Reason: Heartburn/Nausea Clozapine (Clozapine 25 Mg Tablet) 25 mg PO BEDTIME KYLE Last Admin: 10/24/23 22:11 Dose: 25 mg Hydroxyzine HCl (Hydroxyzine Hcl 25 Mg Tablet) 25 mg PO Q6H PRN PRN Reason: Anxiety Last Admin: 10/13/23 13:08 Dose: 25 mg Magnesium Hydroxide (Milk Of Magnesia 30 Ml Oral.Susp) 30 ml PO DAILY PRN PRN Reason: Constipation Olanzapine (Olanzapine Odt 10 Mg Tab.Rapdis) 10 mg TRANSLINGU TID PRN PRN Reason: agitation Last Admin: 10/25/23 05:05 Dose: 10 mg Paliperidone (Paliperidone Er 6 Mg Tab.Er.24) 12 mg PO BEDTIME KYLE Last Admin: 10/24/23 22:11 Dose: 12 mg Trazodone HCl (Trazodone Hcl 50 Mg Tablet) 50 mg PO BEDTIME MRX1 PRN PRN Reason: Insomnia Last Admin: 10/23/23 22:06 Dose: 50 mg Allergies Allergies Allergy/AdvReac Type Severity Reaction Status Date / Time Penicillins [PENICILLINS] Allergy Unknown RASH Verified 10/11/23 17:29 Assessment & Plan Assessment & Plan (1) Schizophrenia: Status: Acute Code(s): F20.9 - Schizophrenia, unspecified (2) Cannabis use disorder: Status: Acute Code(s): F12.90 - Cannabis use, unspecified, uncomplicated Plan 10/12: retitrate clozapine. 10/13: hold on clozapine, titrate invega to 12 mg daily, then initiate WONG. due to pt's repeated failures in outpt Tx on PO medication, will try WONG. per pt and brother Hx, pt has h/o doing better on WONG. 10/14: continue clozapine 50 mg daily. increase invega to 6 mg QHS. titrate up on invega as tolerated and indicated over w/e. mental status substantially improved from admission. 10/15: Continue current treatment and plan 10/16: Continue current regimen and plans 10/17: increase invega to 9 mg tonight. continue clozaril 50. much improved from admission. 10/18: continue current mgmt. plan to increase invega to 12 after several nights, then start sustenna after several more. much improved from admission. 10/19: improved from admission. continue current mgmt. 10/20: gains maintained. one more night at 9 mg, then to 12 mg invega as of tomorrow night. 10/21: no change in presentation. decrease clozapine to 25 mg and increase paliperidone to 12 mg QHS. 10/22: continue current management and treatment plan. 10/23: continue current management and treatment plan. 10/24: Invega Sustenna per primary team. Otherwise continue current management and treatment plan. Reason for continued inpatient stay Substantial Risk for: inability to function and rapid decompensation Time Spent With Patient Time: Total time managing care of this patient today ____ minutes.
[2023-10-25 20:00] VITALS: BP 133/74; PULSE 95; RESP 18; TEMP 36.4; O2SAT 98
[2023-10-25] MEDS: cloZAPine 25 MG TABLET PO (21:37)
[2023-10-25] MEDS: Paliperidone ER 6 MG TAB.ER.24 12 MG PO (21:37)
[2023-10-25] MEDS: traZODone HCL 50 MG TABLET PO (21:38)
[2023-10-26 07:25] VITALS: BP 123/60; PULSE 90; RESP 14; TEMP 36.8; O2SAT 99
--- NOTE | 2023-10-26 17:20 | HO.PSYCHPN ---
Subjective Subjective Date of Service: 10/26/23 Reason For Visit: psychosis Interim History: stable, usual presentation for hospital. more interactive than at admission. informed of plan to DC clozapine and PO invega and give sustenna tomorrow. per staff, blunted. no dep/anx. visit with mother, aunt. AH. wants to DC to take dog to vet. Mental Status Exam Mental Status Exam Narrative: In today's visit he is alert, oriented and pleasant. Normal speech. Moderate eye contact. Appropriate affect. No signs of psychosis. No SI/HI/AVH expressed. Cognitively is intact. Judgment is intact. Diagnostics Vital Signs (24Hr): Vital Signs - 24 hr 10/25/23 20:00 10/26/23 07:25 Temperature 97.6 F 98.2 F Pulse Rate 95 90 Respiratory Rate 18 14 Blood Pressure 133/74 123/60 Pulse Oximetry 98 99 Oxygen Delivery Method Room Air Room Air BMI result Body Mass Index 44.3 Labs 10/18/23 10:15 10/11/23 21:47 Labs: Laboratory Results - last 48 hr 10/25/23 07:28 Absolute Neuts (auto) 5.3 Medications Medications Current Medications Acetaminophen (Acetaminophen 325 Mg Tablet) 650 mg PO Q6H PRN PRN Reason: Headache/Pain Mild Scale (1-3) Al Hydroxide/Mg Hydroxide (Magnesium Hydrox/Alum Hydrox 30 Ml Oral.Susp) 30 ml PO Q6H PRN PRN Reason: Heartburn/Nausea Clozapine (Clozapine 25 Mg Tablet) 25 mg PO BEDTIME KYLE Last Admin: 10/25/23 21:37 Dose: 25 mg Hydroxyzine HCl (Hydroxyzine Hcl 25 Mg Tablet) 25 mg PO Q6H PRN PRN Reason: Anxiety Last Admin: 10/13/23 13:08 Dose: 25 mg Magnesium Hydroxide (Milk Of Magnesia 30 Ml Oral.Susp) 30 ml PO DAILY PRN PRN Reason: Constipation Olanzapine (Olanzapine Odt 10 Mg Tab.Rapdis) 10 mg TRANSLINGU TID PRN PRN Reason: agitation Last Admin: 10/25/23 05:05 Dose: 10 mg Paliperidone (Paliperidone Er 6 Mg Tab.Er.24) 12 mg PO BEDTIME KYLE Last Admin: 10/25/23 21:37 Dose: 12 mg Trazodone HCl (Trazodone Hcl 50 Mg Tablet) 50 mg PO BEDTIME MRX1 PRN PRN Reason: Insomnia Last Admin: 10/25/23 21:38 Dose: 50 mg Allergies Allergies Allergy/AdvReac Type Severity Reaction Status Date / Time Penicillins [PENICILLINS] Allergy Unknown RASH Verified 10/11/23 17:29 Assessment & Plan Assessment & Plan (1) Schizophrenia: Status: Acute Code(s): F20.9 - Schizophrenia, unspecified (2) Cannabis use disorder: Status: Acute Code(s): F12.90 - Cannabis use, unspecified, uncomplicated Plan 10/12: retitrate clozapine. 10/13: hold on clozapine, titrate invega to 12 mg daily, then initiate WONG. due to pt's repeated failures in outpt Tx on PO medication, will try WONG. per pt and brother Hx, pt has h/o doing better on WONG. 10/14: continue clozapine 50 mg daily. increase invega to 6 mg QHS. titrate up on invega as tolerated and indicated over w/e. mental status substantially improved from admission. 10/15: Continue current treatment and plan 10/16: Continue current regimen and plans 10/17: increase invega to 9 mg tonight. continue clozaril 50. much improved from admission. 10/18: continue current mgmt. plan to increase invega to 12 after several nights, then start sustenna after several more. much improved from admission. 10/19: improved from admission. continue current mgmt. 10/20: gains maintained. one more night at 9 mg, then to 12 mg invega as of tomorrow night. 10/21: no change in presentation. decrease clozapine to 25 mg and increase paliperidone to 12 mg QHS. 10/22: continue current management and treatment plan. 10/23: continue current management and treatment plan. 10/24: Invega Sustenna per primary team. Otherwise continue current management and treatment plan. 10/25: DC clozapine and PO invega. start sustenna 234 mg tomorrow. stable presentation, no side effects. Reason for continued inpatient stay Substantial Risk for: inability to function and rapid decompensation Time Spent With Patient Time: Total time managing care of this patient today __25__ minutes.
[2023-10-26 20:00] VITALS: BP 134/83; PULSE 115; RESP 18; TEMP 36.8; O2SAT 98
[2023-10-26] MEDS: OLANZapine ODT 10 MG TAB.RAPDIS TRANSLINGU (22:58)
--- NOTE | 2023-10-26 23:36 | PC.NURSE ---
Addendum entered by Nasim Collins RN 10/27/23 00:22: The noise in his head was causing mild agitation. Original Note: Julio given Zyprexa PO prn for noise in his head that is preventing him from falling asleep.
[2023-10-27] MEDS: traZODone HCL 50 MG TABLET PO ×3 (01:18→23:31)
[2023-10-27 07:25] VITALS: BP 100/58; PULSE 82; RESP 14; TEMP 36.5; O2SAT 96
[2023-10-27] MEDS: Paliperidone Palmitate 234 MG/1.5 ML SYRINGE IM (10:45)
--- NOTE | 2023-10-27 10:52 | PC.NURSE ---
Invega Sustenna 234mg IM administered to L deltoid on this date. Pt tolerated procedure well.
--- NOTE | 2023-10-27 15:20 | HO.PSYCHPN ---
Subjective Subjective Date of Service: 10/27/23 Reason For Visit: psychosis Interim History: no change in presentation. getting sustenna 234 mg today. per staff, constricted, withdrawn. guarded. c/o noise in my head keeping him awake overnight. got zyprexa PRN, slept about 4 hours. Mental Status Exam Mental Status Exam Narrative: In today's visit he is alert, oriented and pleasant. Normal speech. Moderate eye contact. Appropriate affect. No signs of psychosis. No SI/HI/AVH expressed. Cognitively is intact. Judgment is intact. Diagnostics Vital Signs (24Hr): Vital Signs - 24 hr 10/26/23 20:00 10/27/23 07:25 Temperature 98.2 F 97.7 F Pulse Rate 115 H 82 Respiratory Rate 18 14 Blood Pressure 134/83 100/58 L Pulse Oximetry 98 96 Oxygen Delivery Method Room Air Room Air BMI result Body Mass Index 44.3 Labs 10/18/23 10:15 10/11/23 21:47 Medications Medications Current Medications Acetaminophen (Acetaminophen 325 Mg Tablet) 650 mg PO Q6H PRN PRN Reason: Headache/Pain Mild Scale (1-3) Al Hydroxide/Mg Hydroxide (Magnesium Hydrox/Alum Hydrox 30 Ml Oral.Susp) 30 ml PO Q6H PRN PRN Reason: Heartburn/Nausea Hydroxyzine HCl (Hydroxyzine Hcl 25 Mg Tablet) 25 mg PO Q6H PRN PRN Reason: Anxiety Last Admin: 10/13/23 13:08 Dose: 25 mg Magnesium Hydroxide (Milk Of Magnesia 30 Ml Oral.Susp) 30 ml PO DAILY PRN PRN Reason: Constipation Olanzapine (Olanzapine Odt 10 Mg Tab.Rapdis) 10 mg TRANSLINGU TID PRN PRN Reason: agitation Last Admin: 10/26/23 22:58 Dose: 10 mg Paliperidone Palmitate (Paliperidone Palmitate 234 Mg/1.5 Ml Syringe) 234 mg IM Q30D KYLE Last Admin: 10/27/23 10:45 Dose: 234 mg Trazodone HCl (Trazodone Hcl 50 Mg Tablet) 50 mg PO BEDTIME MRX1 PRN PRN Reason: Insomnia Last Admin: 10/27/23 02:52 Dose: 50 mg Allergies Allergies Allergy/AdvReac Type Severity Reaction Status Date / Time Penicillins [PENICILLINS] Allergy Unknown RASH Verified 10/11/23 17:29 Assessment & Plan Assessment & Plan (1) Schizophrenia: Status: Acute Code(s): F20.9 - Schizophrenia, unspecified (2) Cannabis use disorder: Status: Acute Code(s): F12.90 - Cannabis use, unspecified, uncomplicated Plan 10/12: retitrate clozapine. 10/13: hold on clozapine, titrate invega to 12 mg daily, then initiate WONG. due to pt's repeated failures in outpt Tx on PO medication, will try WONG. per pt and brother Hx, pt has h/o doing better on WONG. 10/14: continue clozapine 50 mg daily. increase invega to 6 mg QHS. titrate up on invega as tolerated and indicated over w/e. mental status substantially improved from admission. 10/15: Continue current treatment and plan 10/16: Continue current regimen and plans 10/17: increase invega to 9 mg tonight. continue clozaril 50. much improved from admission. 10/18: continue current mgmt. plan to increase invega to 12 after several nights, then start sustenna after several more. much improved from admission. 10/19: improved from admission. continue current mgmt. 10/20: gains maintained. one more night at 9 mg, then to 12 mg invega as of tomorrow night. 10/21: no change in presentation. decrease clozapine to 25 mg and increase paliperidone to 12 mg QHS. 10/22: continue current management and treatment plan. 10/23: continue current management and treatment plan. 10/24: Invega Sustenna per primary team. Otherwise continue current management and treatment plan. 10/25: DC clozapine and PO invega. start sustenna 234 mg tomorrow. stable presentation, no side effects. 10/26: c/o noise in my head last night keeping him up, only slept 4 hours. invega sustenna 234 mg IM today. Reason for continued inpatient stay Substantial Risk for: inability to function and rapid decompensation Time Spent With Patient Time: Total time managing care of this patient today _25___ minutes.
[2023-10-27 19:19] VITALS: BP 120/64; PULSE 100; RESP 16; TEMP 36.9; O2SAT 97
[2023-10-28 07:43] VITALS: BP 128/71; PULSE 87; RESP 16; TEMP 36.9; O2SAT 97
[2023-10-28 10:23] VITALS: BMI 46.2
--- NOTE | 2023-10-28 13:33 | HO.PSYCHPN ---
Subjective Subjective Date of Service: 10/28/23 Reason For Visit: psychosis Interim History: visible on the unit today, but disorganized and bizarre content. per staff, blunted, isolative. no dep/.anx. more spontaneous speech. up pacing from 129 on. slept about 2029 through 129. received invega sustenna 234 mg yesterday. Mental Status Exam Mental Status Exam Narrative: In today's visit he is alert, oriented and pleasant. Normal speech. Moderate eye contact. Appropriate affect. disorganized and bizarre thoughts. No SI/HI/AVH expressed. Diagnostics Vital Signs (24Hr): Vital Signs - 24 hr 10/27/23 19:19 10/28/23 07:43 Temperature 98.4 F 98.5 F Pulse Rate 100 87 Respiratory Rate 16 16 Blood Pressure 120/64 128/71 Pulse Oximetry 97 97 Oxygen Delivery Method Room Air Room Air BMI result Body Mass Index 46.2 Labs 10/18/23 10:15 10/11/23 21:47 Medications Medications Current Medications Acetaminophen (Acetaminophen 325 Mg Tablet) 650 mg PO Q6H PRN PRN Reason: Headache/Pain Mild Scale (1-3) Al Hydroxide/Mg Hydroxide (Magnesium Hydrox/Alum Hydrox 30 Ml Oral.Susp) 30 ml PO Q6H PRN PRN Reason: Heartburn/Nausea Hydroxyzine HCl (Hydroxyzine Hcl 25 Mg Tablet) 25 mg PO Q6H PRN PRN Reason: Anxiety Last Admin: 10/13/23 13:08 Dose: 25 mg Magnesium Hydroxide (Milk Of Magnesia 30 Ml Oral.Susp) 30 ml PO DAILY PRN PRN Reason: Constipation Olanzapine (Olanzapine Odt 10 Mg Tab.Rapdis) 10 mg TRANSLINGU TID PRN PRN Reason: agitation Last Admin: 10/26/23 22:58 Dose: 10 mg Paliperidone Palmitate (Paliperidone Palmitate 234 Mg/1.5 Ml Syringe) 234 mg IM Q30D KYLE Last Admin: 10/27/23 10:45 Dose: 234 mg Trazodone HCl (Trazodone Hcl 50 Mg Tablet) 50 mg PO BEDTIME MRX1 PRN PRN Reason: Insomnia Last Admin: 10/27/23 23:31 Dose: 50 mg Allergies Allergies Allergy/AdvReac Type Severity Reaction Status Date / Time Penicillins [PENICILLINS] Allergy Unknown RASH Verified 10/11/23 17:29 Assessment & Plan Assessment & Plan (1) Schizophrenia: Status: Acute Code(s): F20.9 - Schizophrenia, unspecified (2) Cannabis use disorder: Status: Acute Code(s): F12.90 - Cannabis use, unspecified, uncomplicated Plan 10/12: retitrate clozapine. 10/13: hold on clozapine, titrate invega to 12 mg daily, then initiate WONG. due to pt's repeated failures in outpt Tx on PO medication, will try WONG. per pt and brother Hx, pt has h/o doing better on WONG. 10/14: continue clozapine 50 mg daily. increase invega to 6 mg QHS. titrate up on invega as tolerated and indicated over w/e. mental status substantially improved from admission. 10/15: Continue current treatment and plan 10/16: Continue current regimen and plans 10/17: increase invega to 9 mg tonight. continue clozaril 50. much improved from admission. 10/18: continue current mgmt. plan to increase invega to 12 after several nights, then start sustenna after several more. much improved from admission. 10/19: improved from admission. continue current mgmt. 10/20: gains maintained. one more night at 9 mg, then to 12 mg invega as of tomorrow night. 10/21: no change in presentation. decrease clozapine to 25 mg and increase paliperidone to 12 mg QHS. 10/22: continue current management and treatment plan. 10/23: continue current management and treatment plan. 10/24: Invega Sustenna per primary team. Otherwise continue current management and treatment plan. 10/25: DC clozapine and PO invega. start sustenna 234 mg tomorrow. stable presentation, no side effects. 10/26: c/o noise in my head last night keeping him up, only slept 4 hours. invega sustenna 234 mg IM today. 10/27: more active in the milieu. bizarre and disorganized. invega sustenna 156 mg scheduled for 11/02. Reason for continued inpatient stay Substantial Risk for: inability to function and rapid decompensation Time Spent With Patient Time: Total time managing care of this patient today __25__ minutes.
[2023-10-28 19:36] VITALS: BP 138/81; PULSE 91; RESP 16; TEMP 37.1; O2SAT 97
[2023-10-29 08:00] VITALS: BP 111/76; PULSE 74; RESP 16; TEMP 37.2; O2SAT 98
[2023-10-29] MEDS: chlorproMAZINE HCl 25 MG TABLET 50 MG PO ×2 (12:15→17:34)
--- NOTE | 2023-10-29 15:04 | HO.PSYCHPN ---
Subjective Subjective Date of Service: 10/29/23 Reason For Visit: psychosis Interim History: disorganized, bizarre, labile. per staff, brighter, visible. not napping days. some social contact. did not sleep at all last NOC. Mental Status Exam Mental Status Exam Narrative: adequately dressed and groomed. cooperative. PMA of spontaneously jumping up from his seat without apparent provocation. Normal speech. Moderate eye contact. Appropriate affect. disorganized and bizarre thoughts. No SI/HI/AVH expressed. Diagnostics Vital Signs (24Hr): Vital Signs - 24 hr 10/28/23 19:36 10/29/23 08:00 Temperature 98.7 F 98.9 F Pulse Rate 91 74 Respiratory Rate 16 16 Blood Pressure 138/81 111/76 Pulse Oximetry 97 98 Oxygen Delivery Method Room Air Room Air BMI result Body Mass Index 46.2 Labs 10/18/23 10:15 10/11/23 21:47 Medications Medications Current Medications Acetaminophen (Acetaminophen 325 Mg Tablet) 650 mg PO Q6H PRN PRN Reason: Headache/Pain Mild Scale (1-3) Al Hydroxide/Mg Hydroxide (Magnesium Hydrox/Alum Hydrox 30 Ml Oral.Susp) 30 ml PO Q6H PRN PRN Reason: Heartburn/Nausea Chlorpromazine HCl (Chlorpromazine Hcl 100 Mg Tablet) 200 mg PO BEDTIME [facility] Chlorpromazine HCl (Chlorpromazine Hcl 25 Mg Tablet) 50 mg PO TID@0900,1300,1700 KYLE Last Admin: 10/29/23 12:15 Dose: 50 mg Hydroxyzine HCl (Hydroxyzine Hcl 25 Mg Tablet) 25 mg PO Q6H PRN PRN Reason: Anxiety Last Admin: 10/13/23 13:08 Dose: 25 mg Magnesium Hydroxide (Milk Of Magnesia 30 Ml Oral.Susp) 30 ml PO DAILY PRN PRN Reason: Constipation Olanzapine (Olanzapine Odt 10 Mg Tab.Rapdis) 10 mg TRANSLINGU TID PRN PRN Reason: agitation Last Admin: 10/26/23 22:58 Dose: 10 mg Paliperidone Palmitate (Paliperidone Palmitate 156 Mg/Ml Syringe) 156 mg IM ONCE ONE Stop: 11/03/23 09:31 Trazodone HCl (Trazodone Hcl 50 Mg Tablet) 50 mg PO BEDTIME MRX1 PRN PRN Reason: Insomnia Last Admin: 10/27/23 23:31 Dose: 50 mg Allergies Allergies Allergy/AdvReac Type Severity Reaction Status Date / Time Penicillins [PENICILLINS] Allergy Unknown RASH Verified 10/11/23 17:29 Assessment & Plan Assessment & Plan (1) Schizophrenia: Status: Acute Code(s): F20.9 - Schizophrenia, unspecified (2) Cannabis use disorder: Status: Acute Code(s): F12.90 - Cannabis use, unspecified, uncomplicated Plan 10/12: retitrate clozapine. 10/13: hold on clozapine, titrate invega to 12 mg daily, then initiate WONG. due to pt's repeated failures in outpt Tx on PO medication, will try WONG. per pt and brother Hx, pt has h/o doing better on WONG. 10/14: continue clozapine 50 mg daily. increase invega to 6 mg QHS. titrate up on invega as tolerated and indicated over w/e. mental status substantially improved from admission. 10/15: Continue current treatment and plan 10/16: Continue current regimen and plans 10/17: increase invega to 9 mg tonight. continue clozaril 50. much improved from admission. 10/18: continue current mgmt. plan to increase invega to 12 after several nights, then start sustenna after several more. much improved from admission. 10/19: improved from admission. continue current mgmt. 10/20: gains maintained. one more night at 9 mg, then to 12 mg invega as of tomorrow night. 10/21: no change in presentation. decrease clozapine to 25 mg and increase paliperidone to 12 mg QHS. 10/22: continue current management and treatment plan. 10/23: continue current management and treatment plan. 10/24: Invega Sustenna per primary team. Otherwise continue current management and treatment plan. 10/25: DC clozapine and PO invega. start sustenna 234 mg tomorrow. stable presentation, no side effects. 10/26: c/o noise in my head last night keeping him up, only slept 4 hours. invega sustenna 234 mg IM today. 10/27: more active in the milieu. bizarre and disorganized. invega sustenna 156 mg scheduled for 11/02. 10/28: schedule thorazine 50 mg at 0900,1300,1700 and thorazine 200 mg QHS for help with ongoing psychosis and insomnia. Reason for continued inpatient stay Substantial Risk for: inability to function and rapid decompensation Time Spent With Patient Time: Total time managing care of this patient today __25__ minutes.
[2023-10-29 20:00] VITALS: BP 127/65; PULSE 130; RESP 18; TEMP 37; O2SAT 96
[2023-10-29] MEDS: chlorproMAZINE HCl 100 MG TABLET 200 MG PO (21:07)
[2023-10-30 07:38] VITALS: BP 124/79; PULSE 105; RESP 16; TEMP 36.4; O2SAT 96
[2023-10-30] MEDS: chlorproMAZINE HCl 25 MG TABLET 50 MG PO ×3 (08:29→17:18)
--- NOTE | 2023-10-30 11:15 | HO.PSYCHPN ---
Subjective Subjective Date of Service: 10/30/23 Reason For Visit: psychosis Subjective Notes: Conditional Voluntary Interim History: met with patient. Discussed with Nursing. Overall continuing to sleep on the floor on his mattress. Auditory hallucinations, reports they are not command today. Feels that they are manageable. Slept well last night. Was a little childlike today and asking about the best way to make [employer] characters Medication Compliance: Yes Side effects from medications: No Attending Groups: No Review of Systems Acute medical concerns: No Review of Systems Review of Systems Yes all other systems are reviewed and are negative Mental Status Exam Mental Status Exam Narrative: adequately dressed and groomed. cooperative. Laying on mattress on floor.. Normal speech. Moderate eye contact. Appropriate affect overall. Some bizarre thoughts. No SI/HI/AVH expressed. Diagnostics Vital Signs (24Hr): Vital Signs - 24 hr 10/29/23 20:00 10/30/23 07:38 Temperature 98.6 F 97.6 F Pulse Rate 130 H 105 H Respiratory Rate 18 16 Blood Pressure 127/65 124/79 Pulse Oximetry 96 96 Oxygen Delivery Method Room Air Room Air BMI result Body Mass Index 46.2 Labs 10/18/23 10:15 10/11/23 21:47 Medications Medications Current Medications Acetaminophen (Acetaminophen 325 Mg Tablet) 650 mg PO Q6H PRN PRN Reason: Headache/Pain Mild Scale (1-3) Al Hydroxide/Mg Hydroxide (Magnesium Hydrox/Alum Hydrox 30 Ml Oral.Susp) 30 ml PO Q6H PRN PRN Reason: Heartburn/Nausea Chlorpromazine HCl (Chlorpromazine Hcl 100 Mg Tablet) 200 mg PO BEDTIME KYLE Last Admin: 10/29/23 21:07 Dose: 200 mg Chlorpromazine HCl (Chlorpromazine Hcl 25 Mg Tablet) 50 mg PO TID@0900,1300,1700 KYLE Last Admin: 10/30/23 08:29 Dose: 50 mg Hydroxyzine HCl (Hydroxyzine Hcl 25 Mg Tablet) 25 mg PO Q6H PRN PRN Reason: Anxiety Last Admin: 10/13/23 13:08 Dose: 25 mg Magnesium Hydroxide (Milk Of Magnesia 30 Ml Oral.Susp) 30 ml PO DAILY PRN PRN Reason: Constipation Olanzapine (Olanzapine Odt 10 Mg Tab.Rapdis) 10 mg TRANSLINGU TID PRN PRN Reason: agitation Last Admin: 10/26/23 22:58 Dose: 10 mg Paliperidone Palmitate (Paliperidone Palmitate 156 Mg/Ml Syringe) 156 mg IM ONCE ONE Stop: 11/03/23 09:31 Trazodone HCl (Trazodone Hcl 50 Mg Tablet) 50 mg PO BEDTIME MRX1 PRN PRN Reason: Insomnia Last Admin: 10/27/23 23:31 Dose: 50 mg Allergies Allergies Allergy/AdvReac Type Severity Reaction Status Date / Time Penicillins [PENICILLINS] Allergy Unknown RASH Verified 10/11/23 17:29 Assessment & Plan Assessment & Plan (1) Schizophrenia: Status: Acute Code(s): F20.9 - Schizophrenia, unspecified (2) Cannabis use disorder: Status: Acute Code(s): F12.90 - Cannabis use, unspecified, uncomplicated Plan 10/12: retitrate clozapine. 10/13: hold on clozapine, titrate invega to 12 mg daily, then initiate WONG. due to pt's repeated failures in outpt Tx on PO medication, will try WONG. per pt and brother Hx, pt has h/o doing better on WONG. 10/14: continue clozapine 50 mg daily. increase invega to 6 mg QHS. titrate up on invega as tolerated and indicated over w/e. mental status substantially improved from admission. 10/15: Continue current treatment and plan 10/16: Continue current regimen and plans 10/17: increase invega to 9 mg tonight. continue clozaril 50. much improved from admission. 10/18: continue current mgmt. plan to increase invega to 12 after several nights, then start sustenna after several more. much improved from admission. 10/19: improved from admission. continue current mgmt. 10/20: gains maintained. one more night at 9 mg, then to 12 mg invega as of tomorrow night. 10/21: no change in presentation. decrease clozapine to 25 mg and increase paliperidone to 12 mg QHS. 10/22: continue current management and treatment plan. 10/23: continue current management and treatment plan. 10/24: Invega Sustenna per primary team. Otherwise continue current management and treatment plan. 10/25: DC clozapine and PO invega. start sustenna 234 mg tomorrow. stable presentation, no side effects. 10/26: c/o noise in my head last night keeping him up, only slept 4 hours. invega sustenna 234 mg IM today. 10/27: more active in the milieu. bizarre and disorganized. invega sustenna 156 mg scheduled for 11/02. 10/28: schedule thorazine 50 mg at 0900,1300,1700 and thorazine 200 mg QHS for help with ongoing psychosis and insomnia. 10/30/2023: No changes Reason for continued inpatient stay Substantial Risk for: inability to function Time Spent With Patient Time: Total time managing care of this patient today ____ minutes.
[2023-10-30 20:00] VITALS: BP 137/64; PULSE 110; RESP 18; TEMP 36.6; O2SAT 96
[2023-10-30] MEDS: chlorproMAZINE HCl 100 MG TABLET 200 MG PO (20:51)
[2023-10-31 07:35] VITALS: BP 119/59; PULSE 108; RESP 18; TEMP 36.4; O2SAT 95
[2023-10-31] MEDS: chlorproMAZINE HCl 25 MG TABLET 50 MG PO (08:28)
--- NOTE | 2023-10-31 11:14 | P.PNPSI_ITS ---
Subjective Subjective Date of Service: 10/31/23 Reason For Visit: psychosis Interim History: Met with patient. Discussed with Nursing. Overall continuing to sleep on the floor on his mattress. Auditory hallucinations- non command. Feels that they are manageable. Slept well last night. Otherwise no complaints Medication Compliance: Yes Side effects from medications: No Attending Groups: No Review of Systems Acute medical concerns: No Review of Systems Review of Systems Yes all other systems are reviewed and are negative Mental Status Exam Mental Status Exam Narrative: adequately dressed and groomed. cooperative. Laying on mattress on floor.. Normal speech. Moderate eye contact. Appropriate affect overall. No bizarre thoughts voiced with typewriters functional tester.. No SI/HI/AVH expressed. Diagnostics Vital Signs (24Hr): Vital Signs - 24 hr 10/30/23 20:00 10/31/23 07:35 Temperature 97.8 F 97.6 F Pulse Rate 110 H 108 H Respiratory Rate 18 18 Blood Pressure 137/64 119/59 L Pulse Oximetry 96 95 Oxygen Delivery Method Room Air Room Air BMI result Body Mass Index 46.2 Labs 10/18/23 10:15 10/11/23 21:47 Medications Medications Current Medications Acetaminophen (Acetaminophen 325 Mg Tablet) 650 mg PO Q6H PRN PRN Reason: Headache/Pain Mild Scale (1-3) Al Hydroxide/Mg Hydroxide (Magnesium Hydrox/Alum Hydrox 30 Ml Oral.Susp) 30 ml PO Q6H PRN PRN Reason: Heartburn/Nausea Chlorpromazine HCl (Chlorpromazine Hcl 100 Mg Tablet) 200 mg PO BEDTIME KYLE Last Admin: 10/30/23 20:51 Dose: 200 mg Chlorpromazine HCl (Chlorpromazine Hcl 25 Mg Tablet) 50 mg PO TID@0900,1300,1700 KYLE Last Admin: 10/31/23 08:28 Dose: 50 mg Hydroxyzine HCl (Hydroxyzine Hcl 25 Mg Tablet) 25 mg PO Q6H PRN PRN Reason: Anxiety Last Admin: 10/13/23 13:08 Dose: 25 mg Magnesium Hydroxide (Milk Of Magnesia 30 Ml Oral.Susp) 30 ml PO DAILY PRN PRN Reason: Constipation Olanzapine (Olanzapine Odt 10 Mg Tab.Rapdis) 10 mg TRANSLINGU TID PRN PRN Reason: agitation Last Admin: 10/26/23 22:58 Dose: 10 mg Paliperidone Palmitate (Paliperidone Palmitate 156 Mg/Ml Syringe) 156 mg IM ONCE ONE Stop: 11/03/23 09:31 Trazodone HCl (Trazodone Hcl 50 Mg Tablet) 50 mg PO BEDTIME MRX1 PRN PRN Reason: Insomnia Last Admin: 10/27/23 23:31 Dose: 50 mg Allergies Allergies Allergy/AdvReac Type Severity Reaction Status Date / Time Penicillins [PENICILLINS] Allergy Unknown RASH Verified 10/11/23 17:29 Assessment & Plan Assessment & Plan (1) Schizophrenia: Status: Acute Code(s): F20.9 - Schizophrenia, unspecified (2) Cannabis use disorder: Status: Acute Code(s): F12.90 - Cannabis use, unspecified, uncomplicated Plan 10/12: retitrate clozapine. 10/13: hold on clozapine, titrate invega to 12 mg daily, then initiate WONG. due to pt's repeated failures in outpt Tx on PO medication, will try WONG. per pt and brother Hx, pt has h/o doing better on WONG. 10/14: continue clozapine 50 mg daily. increase invega to 6 mg QHS. titrate up on invega as tolerated and indicated over w/e. mental status substantially improved from admission. 10/15: Continue current treatment and plan 10/16: Continue current regimen and plans 10/17: increase invega to 9 mg tonight. continue clozaril 50. much improved from admission. 10/18: continue current mgmt. plan to increase invega to 12 after several nights, then start sustenna after several more. much improved from admission. 10/19: improved from admission. continue current mgmt. 10/20: gains maintained. one more night at 9 mg, then to 12 mg invega as of tomorrow night. 10/21: no change in presentation. decrease clozapine to 25 mg and increase paliperidone to 12 mg QHS. 10/22: continue current management and treatment plan. 10/23: continue current management and treatment plan. 10/24: Invega Sustenna per primary team. Otherwise continue current management and treatment plan. 10/25: DC clozapine and PO invega. start sustenna 234 mg tomorrow. stable presentation, no side effects. 10/26: c/o noise in my head last night keeping him up, only slept 4 hours. invega sustenna 234 mg IM today. 10/27: more active in the milieu. bizarre and disorganized. invega sustenna 156 mg scheduled for 11/02. 10/28: schedule thorazine 50 mg at 0900,1300,1700 and thorazine 200 mg QHS for help with ongoing psychosis and insomnia. 10/30/2023: No changes 10/31/2023: No changes Reason for continued inpatient stay Substantial Risk for: inability to function and rapid decompensation Time Spent With Patient Time: Total time managing care of this patient today ____ minutes.
[2023-10-31 20:17] VITALS: BP 131/60; PULSE 92; RESP 16; TEMP 36.9; O2SAT 97
[2023-10-31] MEDS: chlorproMAZINE HCl 100 MG TABLET 200 MG PO (22:17)
[2023-11-01 07:38] VITALS: BP 117/64; PULSE 103; RESP 16; TEMP 36.4; O2SAT 96
[2023-11-01 08:16] LABS: Neut%MD 53.7 %; Neutrophils Absolute Auto 5.1 x10*3/uL (2.0-8.3); WBCANC 9.6 X10*3/uL
[2023-11-01] MEDS: chlorproMAZINE HCl 25 MG TABLET 50 MG PO (08:27)
--- NOTE | 2023-11-01 15:11 | P.PNPSI_ITS ---
Subjective Subjective Date of Service: 11/01/23 Reason For Visit: psychosis Interim History: states thorazine is helpful for him during the day, willing to use it PRN, however. sleeping better, but not as well as he might. no complaints or requests. discuss invega shot tomorrow. per staff, only wants thorazine at HS. blunted. AH, but improved. restless. Mental Status Exam Mental Status Exam Narrative: adequately dressed and groomed. cooperative. Laying on mattress on floor. Normal speech. Moderate eye contact. Appropriate affect overall. No bizarre thoughts voiced with proposal manager writer.. No SI/HI/AVH expressed. Diagnostics Vital Signs (24Hr): Vital Signs - 24 hr 10/31/23 20:17 11/01/23 07:38 Temperature 98.4 F 97.5 F Pulse Rate 92 103 H Respiratory Rate 16 16 Blood Pressure 131/60 117/64 Pulse Oximetry 97 96 Oxygen Delivery Method Room Air Room Air BMI result Body Mass Index 46.2 Labs 10/18/23 10:15 10/11/23 21:47 Labs: Laboratory Results - last 48 hr 11/01/23 08:12 Absolute Neuts (auto) 5.1 Medications Medications Current Medications Acetaminophen (Acetaminophen 325 Mg Tablet) 650 mg PO Q6H PRN PRN Reason: Headache/Pain Mild Scale (1-3) Al Hydroxide/Mg Hydroxide (Magnesium Hydrox/Alum Hydrox 30 Ml Oral.Susp) 30 ml PO Q6H PRN PRN Reason: Heartburn/Nausea Chlorpromazine HCl (Chlorpromazine Hcl 100 Mg Tablet) 200 mg PO BEDTIME KYLE Last Admin: 10/31/23 22:17 Dose: 200 mg Chlorpromazine HCl (Chlorpromazine Hcl 25 Mg Tablet) 50 mg PO Q4H PRN PRN Reason: severe anxiety/agitation Hydroxyzine HCl (Hydroxyzine Hcl 25 Mg Tablet) 25 mg PO Q6H PRN PRN Reason: Anxiety Last Admin: 10/13/23 13:08 Dose: 25 mg Magnesium Hydroxide (Milk Of Magnesia 30 Ml Oral.Susp) 30 ml PO DAILY PRN PRN Reason: Constipation Olanzapine (Olanzapine Odt 10 Mg Tab.Rapdis) 10 mg TRANSLINGU TID PRN PRN Reason: agitation Last Admin: 10/26/23 22:58 Dose: 10 mg Paliperidone Palmitate (Paliperidone Palmitate 156 Mg/Ml Syringe) 156 mg IM ONCE ONE Stop: 11/03/23 09:31 Trazodone HCl (Trazodone Hcl 50 Mg Tablet) 50 mg PO BEDTIME MRX1 PRN PRN Reason: Insomnia Last Admin: 10/27/23 23:31 Dose: 50 mg Allergies Allergies Allergy/AdvReac Type Severity Reaction Status Date / Time Penicillins [PENICILLINS] Allergy Unknown RASH Verified 10/11/23 17:29 Assessment & Plan Assessment & Plan (1) Schizophrenia: Status: Acute Code(s): F20.9 - Schizophrenia, unspecified (2) Cannabis use disorder: Status: Acute Code(s): F12.90 - Cannabis use, unspecified, uncomplicated Plan 10/12: retitrate clozapine. 10/13: hold on clozapine, titrate invega to 12 mg daily, then initiate WONG. due to pt's repeated failures in outpt Tx on PO medication, will try WONG. per pt and brother Hx, pt has h/o doing better on WONG. 10/14: continue clozapine 50 mg daily. increase invega to 6 mg QHS. titrate up on invega as tolerated and indicated over w/e. mental status substantially improved from admission. 10/15: Continue current treatment and plan 10/16: Continue current regimen and plans 10/17: increase invega to 9 mg tonight. continue clozaril 50. much improved from admission. 10/18: continue current mgmt. plan to increase invega to 12 after several nights, then start sustenna after several more. much improved from admission. 10/19: improved from admission. continue current mgmt. 10/20: gains maintained. one more night at 9 mg, then to 12 mg invega as of tomorrow night. 10/21: no change in presentation. decrease clozapine to 25 mg and increase paliperidone to 12 mg QHS. 10/22: continue current management and treatment plan. 10/23: continue current management and treatment plan. 10/24: Invega Sustenna per primary team. Otherwise continue current management and treatment plan. 10/25: DC clozapine and PO invega. start sustenna 234 mg tomorrow. stable presentation, no side effects. 10/26: c/o noise in my head last night keeping him up, only slept 4 hours. invega sustenna 234 mg IM today. 10/27: more active in the milieu. bizarre and disorganized. invega sustenna 156 mg scheduled for 11/02. 10/28: schedule thorazine 50 mg at 0900,1300,1700 and thorazine 200 mg QHS for help with ongoing psychosis and insomnia. 10/30/2023: No changes 10/31/2023: No changes 10/31: make daytime thorazine 50 mg doses PRN. continue 200 mg scheduled at HS. invega 156 mg tomorrow. Reason for continued inpatient stay Substantial Risk for: inability to function and rapid decompensation Time Spent With Patient Time: Total time managing care of this patient today __25__ minutes.
[2023-11-01 19:22] VITALS: BP 130/59; PULSE 90; RESP 18; TEMP 36.5; O2SAT 98
[2023-11-01] MEDS: chlorproMAZINE HCl 100 MG TABLET 200 MG PO (23:44)
[2023-11-02 07:43] VITALS: BP 110/60; PULSE 94; RESP 16; TEMP 36.5; O2SAT 97
[2023-11-02] MEDS: Paliperidone Palmitate 156 MG/ML SYRINGE IM (09:00)
--- NOTE | 2023-11-02 09:57 | PC.NURSE ---
Pt received 156mg Invega Sustenna in left deltoid.
--- NOTE | 2023-11-02 15:44 | P.PNPSI_ITS ---
Subjective Subjective Date of Service: 11/02/23 Reason For Visit: psychosis Interim History: no change in presentation. reports he received sustenna injection this morning. agreeable to remain in the hospital for some days of observation. endorses ongoing AH, which he describes as a bit of an argument. per staff, blunted. AH. taking meds. slept about 6 hours. Mental Status Exam Mental Status Exam Narrative: adequately dressed and groomed. cooperative. Laying on mattress on floor. Normal speech. Moderate eye contact. Appropriate affect overall. No bizarre thoughts voiced with contract technical writer. +AH of a bit of an argument. No SI/HI/VH expressed. Diagnostics Vital Signs (24Hr): Vital Signs - 24 hr 11/01/23 19:22 11/02/23 07:43 Temperature 97.7 F 97.7 F Pulse Rate 90 94 Respiratory Rate 18 16 Blood Pressure 130/59 L 110/60 Pulse Oximetry 98 97 Oxygen Delivery Method Room Air Room Air BMI result Body Mass Index 46.2 Labs 10/18/23 10:15 10/11/23 21:47 Labs: Laboratory Results - last 48 hr 11/01/23 08:12 Absolute Neuts (auto) 5.1 Medications Medications Current Medications Acetaminophen (Acetaminophen 325 Mg Tablet) 650 mg PO Q6H PRN PRN Reason: Headache/Pain Mild Scale (1-3) Al Hydroxide/Mg Hydroxide (Magnesium Hydrox/Alum Hydrox 30 Ml Oral.Susp) 30 ml PO Q6H PRN PRN Reason: Heartburn/Nausea Chlorpromazine HCl (Chlorpromazine Hcl 100 Mg Tablet) 200 mg PO BEDTIME KYLE Last Admin: 11/01/23 23:44 Dose: 200 mg Chlorpromazine HCl (Chlorpromazine Hcl 25 Mg Tablet) 50 mg PO Q4H PRN PRN Reason: severe anxiety/agitation Hydroxyzine HCl (Hydroxyzine Hcl 25 Mg Tablet) 25 mg PO Q6H PRN PRN Reason: Anxiety Last Admin: 10/13/23 13:08 Dose: 25 mg Magnesium Hydroxide (Milk Of Magnesia 30 Ml Oral.Susp) 30 ml PO DAILY PRN PRN Reason: Constipation Olanzapine (Olanzapine Odt 10 Mg Tab.Rapdis) 10 mg TRANSLINGU TID PRN PRN Reason: agitation Last Admin: 10/26/23 22:58 Dose: 10 mg Trazodone HCl (Trazodone Hcl 50 Mg Tablet) 50 mg PO BEDTIME MRX1 PRN PRN Reason: Insomnia Last Admin: 10/27/23 23:31 Dose: 50 mg Allergies Allergies Allergy/AdvReac Type Severity Reaction Status Date / Time Penicillins [PENICILLINS] Allergy Unknown RASH Verified 10/11/23 17:29 Assessment & Plan Assessment & Plan (1) Schizophrenia: Status: Acute Code(s): F20.9 - Schizophrenia, unspecified (2) Cannabis use disorder: Status: Acute Code(s): F12.90 - Cannabis use, unspecified, uncomplicated Plan 10/12: retitrate clozapine. 10/13: hold on clozapine, titrate invega to 12 mg daily, then initiate WONG. due to pt's repeated failures in outpt Tx on PO medication, will try WONG. per pt and brother Hx, pt has h/o doing better on WONG. 10/14: continue clozapine 50 mg daily. increase invega to 6 mg QHS. titrate up on invega as tolerated and indicated over w/e. mental status substantially improved from admission. 10/15: Continue current treatment and plan 10/16: Continue current regimen and plans 10/17: increase invega to 9 mg tonight. continue clozaril 50. much improved from admission. 10/18: continue current mgmt. plan to increase invega to 12 after several nights, then start sustenna after several more. much improved from admission. 10/19: improved from admission. continue current mgmt. 10/20: gains maintained. one more night at 9 mg, then to 12 mg invega as of tomorrow night. 10/21: no change in presentation. decrease clozapine to 25 mg and increase paliperidone to 12 mg QHS. 10/22: continue current management and treatment plan. 10/23: continue current management and treatment plan. 10/24: Invega Sustenna per primary team. Otherwise continue current management and treatment plan. 10/25: DC clozapine and PO invega. start sustenna 234 mg tomorrow. stable presentation, no side effects. 10/26: c/o noise in my head last night keeping him up, only slept 4 hours. invega sustenna 234 mg IM today. 10/27: more active in the milieu. bizarre and disorganized. invega sustenna 156 mg scheduled for 11/02. 10/28: schedule thorazine 50 mg at 0900,1300,1700 and thorazine 200 mg QHS for help with ongoing psychosis and insomnia. 10/30/2023: No changes 10/31/2023: No changes 10/31: make daytime thorazine 50 mg doses PRN. continue 200 mg scheduled at HS. invega 156 mg tomorrow. 11/01: received sustenna 156 mg without issue. took no thorazine 50 PRN doses yesterday. sleeping adequately. continues to experience AH. Reason for continued inpatient stay Substantial Risk for: harm to self, inability to function and rapid decompensation Time Spent With Patient Time: Total time managing care of this patient today __25__ minutes.
--- NOTE | 2023-11-02 18:14 | PC.NURSE ---
Pt got in a verbal altercation with another male peer in the kitchen area. Pt was able to easily be redirected to the sensory room. Pt stated I'm good I'm good, I just didn't like what that byron was saying. Pt also stated I think they're after me. When RN asked who was after him, pt stated the pirates. They're after me, they're trying to take me with them. Pt also stated the voices in my head aren't getting better. Pt declined to take any PRN medication for voices or anxiety. Pt retreated back to his room.
[2023-11-02 20:00] VITALS: BP 126/63; PULSE 110; RESP 18; TEMP 36.8; O2SAT 97
[2023-11-02] MEDS: chlorproMAZINE HCl 100 MG TABLET 200 MG PO (20:45)
[2023-11-02] MEDS: chlorproMAZINE HCl 25 MG TABLET 50 MG PO (22:44)
[2023-11-02] MEDS: hydrOXYzine HCL 25 MG TABLET PO (22:44)
[2023-11-02] MEDS: OLANZapine ODT 10 MG TAB.RAPDIS TRANSLINGU (22:45)
[2023-11-03 07:55] VITALS: BP 104/64; PULSE 96; RESP 14; TEMP 36.7; O2SAT 96
--- NOTE | 2023-11-03 13:47 | HO.PSYCHPN ---
Subjective Subjective Date of Service: 11/03/23 Reason For Visit: psychosis Interim History: calm, cooperative. referring to himself in the third person. seems to believe that he had sex with a woman and contracted some kind of rot from her. generally pliant, agreeable. per staff, labile yesterday evening, which is unusual. laughing, crying, talking about wrestling crocodiles. slept 6-7 hours. Mental Status Exam Mental Status Exam Narrative: adequately dressed and groomed. cooperative. Lying on mattress on floor. Normal speech. Moderate eye contact. Appropriate affect overall. mood anxious. thoughts with paranoid delusions. no SI/HI/VH expressed. +AH. Diagnostics Vital Signs (24Hr): Vital Signs - 24 hr 11/02/23 20:00 11/03/23 07:55 Temperature 98.2 F 98.1 F Pulse Rate 110 H 96 Respiratory Rate 18 14 Blood Pressure 126/63 104/64 Pulse Oximetry 97 96 Oxygen Delivery Method Room Air Room Air BMI result Body Mass Index 46.2 Labs 10/18/23 10:15 10/11/23 21:47 Medications Medications Current Medications Acetaminophen (Acetaminophen 325 Mg Tablet) 650 mg PO Q6H PRN PRN Reason: Headache/Pain Mild Scale (1-3) Al Hydroxide/Mg Hydroxide (Magnesium Hydrox/Alum Hydrox 30 Ml Oral.Susp) 30 ml PO Q6H PRN PRN Reason: Heartburn/Nausea Chlorpromazine HCl (Chlorpromazine Hcl 100 Mg Tablet) 200 mg PO BEDTIME KYLE Last Admin: 11/02/23 20:45 Dose: 200 mg Chlorpromazine HCl (Chlorpromazine Hcl 25 Mg Tablet) 50 mg PO Q4H PRN PRN Reason: severe anxiety/agitation Last Admin: 11/02/23 22:44 Dose: 50 mg Hydroxyzine HCl (Hydroxyzine Hcl 25 Mg Tablet) 25 mg PO Q6H PRN PRN Reason: Anxiety Last Admin: 11/02/23 22:44 Dose: 25 mg Magnesium Hydroxide (Milk Of Magnesia 30 Ml Oral.Susp) 30 ml PO DAILY PRN PRN Reason: Constipation Olanzapine (Olanzapine Odt 10 Mg Tab.Rapdis) 10 mg TRANSLINGU TID PRN PRN Reason: agitation Last Admin: 11/02/23 22:45 Dose: 10 mg Trazodone HCl (Trazodone Hcl 50 Mg Tablet) 50 mg PO BEDTIME MRX1 PRN PRN Reason: Insomnia Last Admin: 10/27/23 23:31 Dose: 50 mg Allergies Allergies Allergy/AdvReac Type Severity Reaction Status Date / Time Penicillins [PENICILLINS] Allergy Unknown RASH Verified 10/11/23 17:29 Assessment & Plan Assessment & Plan (1) Schizophrenia: Status: Acute Code(s): F20.9 - Schizophrenia, unspecified (2) Cannabis use disorder: Status: Acute Code(s): F12.90 - Cannabis use, unspecified, uncomplicated Plan 10/12: retitrate clozapine. 10/13: hold on clozapine, titrate invega to 12 mg daily, then initiate WONG. due to pt's repeated failures in outpt Tx on PO medication, will try WONG. per pt and brother Hx, pt has h/o doing better on WONG. 10/14: continue clozapine 50 mg daily. increase invega to 6 mg QHS. titrate up on invega as tolerated and indicated over w/e. mental status substantially improved from admission. 10/15: Continue current treatment and plan 10/16: Continue current regimen and plans 10/17: increase invega to 9 mg tonight. continue clozaril 50. much improved from admission. 10/18: continue current mgmt. plan to increase invega to 12 after several nights, then start sustenna after several more. much improved from admission. 10/19: improved from admission. continue current mgmt. 10/20: gains maintained. one more night at 9 mg, then to 12 mg invega as of tomorrow night. 10/21: no change in presentation. decrease clozapine to 25 mg and increase paliperidone to 12 mg QHS. 10/22: continue current management and treatment plan. 10/23: continue current management and treatment plan. 10/24: Invega Sustenna per primary team. Otherwise continue current management and treatment plan. 10/25: DC clozapine and PO invega. start sustenna 234 mg tomorrow. stable presentation, no side effects. 10/26: c/o noise in my head last night keeping him up, only slept 4 hours. invega sustenna 234 mg IM today. 10/27: more active in the milieu. bizarre and disorganized. invega sustenna 156 mg scheduled for 11/02. 10/28: schedule thorazine 50 mg at 0900,1300,1700 and thorazine 200 mg QHS for help with ongoing psychosis and insomnia. 10/30/2023: No changes 10/31/2023: No changes 10/31: make daytime thorazine 50 mg doses PRN. continue 200 mg scheduled at HS. invega 156 mg tomorrow. 11/01: received sustenna 156 mg without issue. took no thorazine 50 PRN doses yesterday. sleeping adequately. continues to experience AH. 11/02: labile, disorganized last night. referring to himself in the third person today, very expressive of paranoid delusions. will investigate adding mood stabilizer versus re-titrating clozapine. Reason for continued inpatient stay Substantial Risk for: harm to self, inability to function and rapid decompensation Time Spent With Patient Time: Total time managing care of this patient today __35__ minutes.
[2023-11-03 19:57] VITALS: BP 119/71; PULSE 109; RESP 18; TEMP 36.6; O2SAT 97
[2023-11-03] MEDS: chlorproMAZINE HCl 100 MG TABLET 200 MG PO (21:40)
[2023-11-04 07:49] VITALS: BP 105/56; PULSE 106; RESP 20; TEMP 36.6; O2SAT 94
--- NOTE | 2023-11-04 13:27 | HO.PSYCHPN ---
Subjective Subjective Date of Service: 11/04/23 Reason For Visit: psychosis Subjective Notes: Conditional Voluntary Interim History: Reviewed with Dr. Tran. Keeping to self. Observed pacing in his room, presents anxious. Pt reports feeling alright today; referring to himself in the third person. Difficult to follow during conversation; pt stated, people are controlling him so he doesn't step out of place, so he doesn't get killed . Pt reports auditory hallucinations; pt reports the voices are telling me to not talk to anybody . pt denies SI/HI. Medication Compliance: Yes Side effects from medications: No Review of Systems Constitutional: Reports as per HPI Eyes: Reports as per HPI Reports as per HPI Cardiovascular: Reports as per HPI Respiratory: Reports as per HPI Gastrointestinal: Reports as per HPI Genitourinary: Reports as per HPI Musculoskeletal: Reports as per HPI Skin/Breast: Reports as per HPI Reports as per HPI Psychiatric: Reports as per HPI Endocrine: Reports as per HPI Hematologic/Lymphatic: Reports as per HPI Allergic/Immunologic: Reports as per HPI Mental Status Exam Mental Status Exam Narrative: Pt is alert and oriented; behavior is pacing, keeping to self; dressed in hospital attire; mood is described as alright ; eye contact appropriate; Speech is normal rate, volume and not pressured; focused on treatment, paranoid; denies SI/HI. Pt reports auditory hallucinations. Diagnostics Vital Signs (24Hr): Vital Signs - 24 hr 11/03/23 19:57 11/04/23 07:49 Temperature 97.8 F 97.8 F Pulse Rate 109 H 106 H Respiratory Rate 18 20 Blood Pressure 119/71 105/56 L Pulse Oximetry 97 94 Oxygen Delivery Method Room Air Room Air BMI result Body Mass Index 46.2 Labs 10/18/23 10:15 10/11/23 21:47 Medications Medications Current Medications Acetaminophen (Acetaminophen 325 Mg Tablet) 650 mg PO Q6H PRN PRN Reason: Headache/Pain Mild Scale (1-3) Al Hydroxide/Mg Hydroxide (Magnesium Hydrox/Alum Hydrox 30 Ml Oral.Susp) 30 ml PO Q6H PRN PRN Reason: Heartburn/Nausea Chlorpromazine HCl (Chlorpromazine Hcl 100 Mg Tablet) 200 mg PO BEDTIME KYLE Last Admin: 11/03/23 21:40 Dose: 200 mg Chlorpromazine HCl (Chlorpromazine Hcl 25 Mg Tablet) 50 mg PO Q4H PRN PRN Reason: severe anxiety/agitation Last Admin: 11/02/23 22:44 Dose: 50 mg Hydroxyzine HCl (Hydroxyzine Hcl 25 Mg Tablet) 25 mg PO Q6H PRN PRN Reason: Anxiety Last Admin: 11/02/23 22:44 Dose: 25 mg Magnesium Hydroxide (Milk Of Magnesia 30 Ml Oral.Susp) 30 ml PO DAILY PRN PRN Reason: Constipation Olanzapine (Olanzapine Odt 10 Mg Tab.Rapdis) 10 mg TRANSLINGU TID PRN PRN Reason: agitation Last Admin: 11/02/23 22:45 Dose: 10 mg Trazodone HCl (Trazodone Hcl 50 Mg Tablet) 50 mg PO BEDTIME MRX1 PRN PRN Reason: Insomnia Last Admin: 10/27/23 23:31 Dose: 50 mg Allergies Allergies Allergy/AdvReac Type Severity Reaction Status Date / Time Penicillins [PENICILLINS] Allergy Unknown RASH Verified 10/11/23 17:29 Assessment & Plan Assessment & Plan (1) Schizophrenia: Status: Acute Code(s): F20.9 - Schizophrenia, unspecified (2) Cannabis use disorder: Status: Acute Code(s): F12.90 - Cannabis use, unspecified, uncomplicated Plan 10/12: retitrate clozapine. 10/13: hold on clozapine, titrate invega to 12 mg daily, then initiate WONG. due to pt's repeated failures in outpt Tx on PO medication, will try WONG. per pt and brother Hx, pt has h/o doing better on WONG. 10/14: continue clozapine 50 mg daily. increase invega to 6 mg QHS. titrate up on invega as tolerated and indicated over w/e. mental status substantially improved from admission. 10/15: Continue current treatment and plan 10/16: Continue current regimen and plans 10/17: increase invega to 9 mg tonight. continue clozaril 50. much improved from admission. 10/18: continue current mgmt. plan to increase invega to 12 after several nights, then start sustenna after several more. much improved from admission. 10/19: improved from admission. continue current mgmt. 10/20: gains maintained. one more night at 9 mg, then to 12 mg invega as of tomorrow night. 10/21: no change in presentation. decrease clozapine to 25 mg and increase paliperidone to 12 mg QHS. 10/22: continue current management and treatment plan. 10/23: continue current management and treatment plan. 10/24: Invega Sustenna per primary team. Otherwise continue current management and treatment plan. 10/25: DC clozapine and PO invega. start sustenna 234 mg tomorrow. stable presentation, no side effects. 10/26: c/o noise in my head last night keeping him up, only slept 4 hours. invega sustenna 234 mg IM today. 10/27: more active in the milieu. bizarre and disorganized. invega sustenna 156 mg scheduled for 11/02. 10/28: schedule thorazine 50 mg at 0900,1300,1700 and thorazine 200 mg QHS for help with ongoing psychosis and insomnia. 10/30/2023: No changes 10/31/2023: No changes 10/31: make daytime thorazine 50 mg doses PRN. continue 200 mg scheduled at HS. invega 156 mg tomorrow. 11/01: received sustenna 156 mg without issue. took no thorazine 50 PRN doses yesterday. sleeping adequately. continues to experience AH. 11/02: labile, disorganized last night. referring to himself in the third person today, very expressive of paranoid delusions. will investigate adding mood stabilizer versus re-titrating clozapine. 11/03: Keeping to self. Observed pacing in his room, presents anxious. Pt reports feeling alright today; referring to himself in the third person. Difficult to follow during conversation; pt stated, people are controlling him so he doesn't step out of place, so he doesn't get killed . Pt reports auditory hallucinations; pt reports the voices are telling me to not talk to anybody . pt denies SI/HI. Patient educated on: diagnosis and medication risk/benefits Informed Consent: understands Reason for continued inpatient stay Substantial Risk for: med/psych decompensation Time Spent With Patient Time: Total time managing care of this patient today _20___ minutes.
[2023-11-04] MEDS: Acetaminophen 325 MG TABLET 650 MG PO (18:25)
[2023-11-04 20:00] VITALS: BP 115/56; PULSE 101; RESP 18; TEMP 36.8; O2SAT 97
[2023-11-04] MEDS: chlorproMAZINE HCl 100 MG TABLET 200 MG PO (21:51)
[2023-11-04] MEDS: hydrOXYzine HCL 25 MG TABLET PO (21:52)
[2023-11-04] MEDS: OLANZapine ODT 10 MG TAB.RAPDIS TRANSLINGU (21:52)
[2023-11-05 08:00] VITALS: BP 97/56; PULSE 95; RESP 18; TEMP 36.4; O2SAT 95
--- NOTE | 2023-11-05 16:11 | HO.PSYCHPN ---
Subjective Subjective Date of Service: 11/05/23 Reason For Visit: psychosis Interim History: no change in presentation. amenable to restart clozaril. per staff, blunted, withdrawn. internally pre-occupied. thought-blocking. slept 7 hours. talking about himself in the third person, rapidly. Mental Status Exam Mental Status Exam Narrative: adequately dressed and groomed. cooperative. Lying on mattress on floor. Normal speech. Moderate eye contact. Appropriate affect overall. mood anxious. thoughts with paranoid delusions. no SI/HI/VH expressed. +AH. Diagnostics Vital Signs (24Hr): Vital Signs - 24 hr 11/04/23 20:00 11/05/23 08:00 Temperature 98.3 F 97.5 F Pulse Rate 101 H 95 Respiratory Rate 18 18 Blood Pressure 115/56 L 97/56 L Pulse Oximetry 97 95 Oxygen Delivery Method Room Air Room Air BMI result Body Mass Index 46.2 Labs 10/18/23 10:15 10/11/23 21:47 Medications Medications Current Medications Acetaminophen (Acetaminophen 325 Mg Tablet) 650 mg PO Q6H PRN PRN Reason: Headache/Pain Mild Scale (1-3) Last Admin: 11/04/23 18:25 Dose: 650 mg Al Hydroxide/Mg Hydroxide (Magnesium Hydrox/Alum Hydrox 30 Ml Oral.Susp) 30 ml PO Q6H PRN PRN Reason: Heartburn/Nausea Chlorpromazine HCl (Chlorpromazine Hcl 100 Mg Tablet) 200 mg PO BEDTIME KYLE Last Admin: 11/04/23 21:51 Dose: 200 mg Chlorpromazine HCl (Chlorpromazine Hcl 25 Mg Tablet) 50 mg PO Q4H PRN PRN Reason: severe anxiety/agitation Last Admin: 11/02/23 22:44 Dose: 50 mg Hydroxyzine HCl (Hydroxyzine Hcl 25 Mg Tablet) 25 mg PO Q6H PRN PRN Reason: Anxiety Last Admin: 11/04/23 21:52 Dose: 25 mg Magnesium Hydroxide (Milk Of Magnesia 30 Ml Oral.Susp) 30 ml PO DAILY PRN PRN Reason: Constipation Olanzapine (Olanzapine Odt 10 Mg Tab.Rapdis) 10 mg TRANSLINGU TID PRN PRN Reason: agitation Last Admin: 11/04/23 21:52 Dose: 10 mg Trazodone HCl (Trazodone Hcl 50 Mg Tablet) 50 mg PO BEDTIME MRX1 PRN PRN Reason: Insomnia Last Admin: 10/27/23 23:31 Dose: 50 mg Allergies Allergies Allergy/AdvReac Type Severity Reaction Status Date / Time Penicillins [PENICILLINS] Allergy Unknown RASH Verified 10/11/23 17:29 Assessment & Plan Assessment & Plan (1) Schizophrenia: Status: Acute Code(s): F20.9 - Schizophrenia, unspecified (2) Cannabis use disorder: Status: Acute Code(s): F12.90 - Cannabis use, unspecified, uncomplicated Plan 10/12: retitrate clozapine. 10/13: hold on clozapine, titrate invega to 12 mg daily, then initiate WONG. due to pt's repeated failures in outpt Tx on PO medication, will try WONG. per pt and brother Hx, pt has h/o doing better on WONG. 10/14: continue clozapine 50 mg daily. increase invega to 6 mg QHS. titrate up on invega as tolerated and indicated over w/e. mental status substantially improved from admission. 10/15: Continue current treatment and plan 10/16: Continue current regimen and plans 10/17: increase invega to 9 mg tonight. continue clozaril 50. much improved from admission. 10/18: continue current mgmt. plan to increase invega to 12 after several nights, then start sustenna after several more. much improved from admission. 10/19: improved from admission. continue current mgmt. 10/20: gains maintained. one more night at 9 mg, then to 12 mg invega as of tomorrow night. 10/21: no change in presentation. decrease clozapine to 25 mg and increase paliperidone to 12 mg QHS. 10/22: continue current management and treatment plan. 10/23: continue current management and treatment plan. 10/24: Invega Sustenna per primary team. Otherwise continue current management and treatment plan. 10/25: DC clozapine and PO invega. start sustenna 234 mg tomorrow. stable presentation, no side effects. 10/26: c/o noise in my head last night keeping him up, only slept 4 hours. invega sustenna 234 mg IM today. 10/27: more active in the milieu. bizarre and disorganized. invega sustenna 156 mg scheduled for 11/02. 10/28: schedule thorazine 50 mg at 0900,1300,1700 and thorazine 200 mg QHS for help with ongoing psychosis and insomnia. 10/30/2023: No changes 10/31/2023: No changes 10/31: make daytime thorazine 50 mg doses PRN. continue 200 mg scheduled at HS. invega 156 mg tomorrow. 11/01: received sustenna 156 mg without issue. took no thorazine 50 PRN doses yesterday. sleeping adequately. continues to experience AH. 11/02: labile, disorganized last night. referring to himself in the third person today, very expressive of paranoid delusions. will investigate adding mood stabilizer versus re-titrating clozapine. 11/03: Keeping to self. Observed pacing in his room, presents anxious. Pt reports feeling alright today; referring to himself in the third person. Difficult to follow during conversation; pt stated, people are controlling him so he doesn't step out of place, so he doesn't get killed . Pt reports auditory hallucinations; pt reports the voices are telling me to not talk to anybody . pt denies SI/HI. 11/04: condition continues deteriorated from when on clozaril. restart clozaril at 25 mg QHS. DC thorazine at HS. Reason for continued inpatient stay Substantial Risk for: harm to self, harm to others, inability to function and rapid decompensation Time Spent With Patient Time: Total time managing care of this patient today __25__ minutes.
[2023-11-05 20:00] VITALS: BP 112/69; PULSE 111; RESP 18; TEMP 36.6; O2SAT 96
[2023-11-05] MEDS: cloZAPine 25 MG TABLET PO (22:07)
[2023-11-05] MEDS: chlorproMAZINE HCl 25 MG TABLET 50 MG PO (22:07)
[2023-11-05] MEDS: traZODone HCL 50 MG TABLET PO (22:09)
[2023-11-06] MEDS: Acetaminophen 325 MG TABLET 650 MG PO (02:10)
[2023-11-06 07:39] VITALS: BP 111/57; PULSE 96; RESP 16; TEMP 36.9; O2SAT 95
--- NOTE | 2023-11-06 16:54 | HO.PSYCHPN ---
Subjective Subjective Date of Service: 11/06/23 Reason For Visit: psychosis Interim History: no issues, slept well. per staff, napping, isolative. AH eves. bizarre statements, pacing. Mental Status Exam Mental Status Exam Narrative: adequately dressed and groomed. cooperative. Lying on mattress on floor. Normal speech. Moderate eye contact. Appropriate affect overall. mood anxious. thoughts with paranoid delusions. no SI/HI/VH expressed. +AH. Diagnostics Vital Signs (24Hr): Vital Signs - 24 hr 11/05/23 20:00 11/06/23 07:39 Temperature 98 F 98.4 F Pulse Rate 111 H 96 Respiratory Rate 18 16 Blood Pressure 112/69 111/57 L Pulse Oximetry 96 95 Oxygen Delivery Method Room Air Room Air BMI result Body Mass Index 46.2 Labs 10/18/23 10:15 10/11/23 21:47 Medications Medications Current Medications Acetaminophen (Acetaminophen 325 Mg Tablet) 650 mg PO Q6H PRN PRN Reason: Headache/Pain Mild Scale (1-3) Last Admin: 11/06/23 02:10 Dose: 650 mg Al Hydroxide/Mg Hydroxide (Magnesium Hydrox/Alum Hydrox 30 Ml Oral.Susp) 30 ml PO Q6H PRN PRN Reason: Heartburn/Nausea Chlorpromazine HCl (Chlorpromazine Hcl 25 Mg Tablet) 50 mg PO Q4H PRN PRN Reason: severe anxiety/agitation Last Admin: 11/05/23 22:07 Dose: 50 mg Clozapine (Clozapine 25 Mg Tablet) 50 mg PO BEDTIME KYLE Hydroxyzine HCl (Hydroxyzine Hcl 25 Mg Tablet) 25 mg PO Q6H PRN PRN Reason: Anxiety Last Admin: 11/04/23 21:52 Dose: 25 mg Magnesium Hydroxide (Milk Of Magnesia 30 Ml Oral.Susp) 30 ml PO DAILY PRN PRN Reason: Constipation Olanzapine (Olanzapine Odt 10 Mg Tab.Rapdis) 10 mg TRANSLINGU TID PRN PRN Reason: agitation Last Admin: 11/04/23 21:52 Dose: 10 mg Trazodone HCl (Trazodone Hcl 50 Mg Tablet) 50 mg PO BEDTIME MRX1 PRN PRN Reason: Insomnia Last Admin: 11/05/23 22:09 Dose: 50 mg Allergies Allergies Allergy/AdvReac Type Severity Reaction Status Date / Time Penicillins [PENICILLINS] Allergy Unknown RASH Verified 10/11/23 17:29 Assessment & Plan Assessment & Plan (1) Schizophrenia: Status: Acute Code(s): F20.9 - Schizophrenia, unspecified (2) Cannabis use disorder: Status: Acute Code(s): F12.90 - Cannabis use, unspecified, uncomplicated Plan 10/12: retitrate clozapine. 10/13: hold on clozapine, titrate invega to 12 mg daily, then initiate WONG. due to pt's repeated failures in outpt Tx on PO medication, will try WONG. per pt and brother Hx, pt has h/o doing better on WONG. 10/14: continue clozapine 50 mg daily. increase invega to 6 mg QHS. titrate up on invega as tolerated and indicated over w/e. mental status substantially improved from admission. 10/15: Continue current treatment and plan 10/16: Continue current regimen and plans 10/17: increase invega to 9 mg tonight. continue clozaril 50. much improved from admission. 10/18: continue current mgmt. plan to increase invega to 12 after several nights, then start sustenna after several more. much improved from admission. 10/19: improved from admission. continue current mgmt. 10/20: gains maintained. one more night at 9 mg, then to 12 mg invega as of tomorrow night. 10/21: no change in presentation. decrease clozapine to 25 mg and increase paliperidone to 12 mg QHS. 10/22: continue current management and treatment plan. 10/23: continue current management and treatment plan. 10/24: Invega Sustenna per primary team. Otherwise continue current management and treatment plan. 10/25: DC clozapine and PO invega. start sustenna 234 mg tomorrow. stable presentation, no side effects. 10/26: c/o noise in my head last night keeping him up, only slept 4 hours. invega sustenna 234 mg IM today. 10/27: more active in the milieu. bizarre and disorganized. invega sustenna 156 mg scheduled for 11/02. 10/28: schedule thorazine 50 mg at 0900,1300,1700 and thorazine 200 mg QHS for help with ongoing psychosis and insomnia. 10/30/2023: No changes 10/31/2023: No changes 6/3: make daytime thorazine 50 mg doses PRN. continue 200 mg scheduled at HS. invega 156 mg tomorrow. 11/01: received sustenna 156 mg without issue. took no thorazine 50 PRN doses yesterday. sleeping adequately. continues to experience AH. 11/02: labile, disorganized last night. referring to himself in the third person today, very expressive of paranoid delusions. will investigate adding mood stabilizer versus re-titrating clozapine. 11/03: Keeping to self. Observed pacing in his room, presents anxious. Pt reports feeling alright today; referring to himself in the third person. Difficult to follow during conversation; pt stated, people are controlling him so he doesn't step out of place, so he doesn't get killed . Pt reports auditory hallucinations; pt reports the voices are telling me to not talk to anybody . pt denies SI/HI. 11/04: condition continues deteriorated from when on clozaril. restart clozaril at 25 mg QHS. DC thorazine at HS. 11/05: bland presentation today. increase clozapine to 50 mg QHS. Reason for continued inpatient stay Substantial Risk for: inability to function and rapid decompensation Time Spent With Patient Time: Total time managing care of this patient today ____ minutes.
[2023-11-06 20:00] VITALS: BP 123/60; PULSE 107; RESP 18; TEMP 36.7; O2SAT 97
[2023-11-06] MEDS: cloZAPine 25 MG TABLET 50 MG PO (22:32)
[2023-11-06] MEDS: traZODone HCL 50 MG TABLET PO (22:35)
[2023-11-07 07:30] VITALS: BP 91/50; PULSE 96; RESP 16; TEMP 36.6; O2SAT 95
--- NOTE | 2023-11-07 15:18 | HO.PSYCHPN ---
Subjective Subjective Date of Service: 11/07/23 Reason For Visit: psychosis Interim History: talking about self in third person, cryptic, resigned language vaguely suggesting hopelessness and doom for himself. informed of clozapine dose increase tonight. per staff, c/o AH. paranoid. not attending groups. Mental Status Exam Mental Status Exam Narrative: adequately dressed and groomed. cooperative. Lying on mattress on floor. Normal speech. Moderate eye contact. Appropriate affect overall. mood anxious. thoughts with paranoid delusions. no SI/HI/VH expressed. +AH. Diagnostics Vital Signs (24Hr): Vital Signs - 24 hr 11/06/23 20:00 11/07/23 07:30 Temperature 98.1 F 97.9 F Pulse Rate 107 H 96 Respiratory Rate 18 16 Blood Pressure 123/60 91/50 L Pulse Oximetry 97 95 Oxygen Delivery Method Room Air Room Air BMI result Body Mass Index 46.2 Labs 10/18/23 10:15 10/11/23 21:47 Medications Medications Current Medications Acetaminophen (Acetaminophen 325 Mg Tablet) 650 mg PO Q6H PRN PRN Reason: Headache/Pain Mild Scale (1-3) Last Admin: 11/06/23 02:10 Dose: 650 mg Al Hydroxide/Mg Hydroxide (Magnesium Hydrox/Alum Hydrox 30 Ml Oral.Susp) 30 ml PO Q6H PRN PRN Reason: Heartburn/Nausea Chlorpromazine HCl (Chlorpromazine Hcl 25 Mg Tablet) 50 mg PO Q4H PRN PRN Reason: severe anxiety/agitation Last Admin: 11/05/23 22:07 Dose: 50 mg Clozapine (Clozapine 25 Mg Tablet) 75 mg PO BEDTIME KYLE Hydroxyzine HCl (Hydroxyzine Hcl 25 Mg Tablet) 25 mg PO Q6H PRN PRN Reason: Anxiety Last Admin: 11/04/23 21:52 Dose: 25 mg Magnesium Hydroxide (Milk Of Magnesia 30 Ml Oral.Susp) 30 ml PO DAILY PRN PRN Reason: Constipation Olanzapine (Olanzapine Odt 10 Mg Tab.Rapdis) 10 mg TRANSLINGU TID PRN PRN Reason: agitation Last Admin: 11/04/23 21:52 Dose: 10 mg Trazodone HCl (Trazodone Hcl 50 Mg Tablet) 50 mg PO BEDTIME MRX1 PRN PRN Reason: Insomnia Last Admin: 11/06/23 22:35 Dose: 50 mg Allergies Allergies Allergy/AdvReac Type Severity Reaction Status Date / Time Penicillins [PENICILLINS] Allergy Unknown RASH Verified 10/11/23 17:29 Assessment & Plan Assessment & Plan (1) Schizophrenia: Status: Acute Code(s): F20.9 - Schizophrenia, unspecified (2) Cannabis use disorder: Status: Acute Code(s): F12.90 - Cannabis use, unspecified, uncomplicated Plan 10/12: retitrate clozapine. 10/13: hold on clozapine, titrate invega to 12 mg daily, then initiate WONG. due to pt's repeated failures in outpt Tx on PO medication, will try WONG. per pt and brother Hx, pt has h/o doing better on WONG. 10/14: continue clozapine 50 mg daily. increase invega to 6 mg QHS. titrate up on invega as tolerated and indicated over w/e. mental status substantially improved from admission. 10/15: Continue current treatment and plan 10/16: Continue current regimen and plans 10/17: increase invega to 9 mg tonight. continue clozaril 50. much improved from admission. 10/18: continue current mgmt. plan to increase invega to 12 after several nights, then start sustenna after several more. much improved from admission. 10/19: improved from admission. continue current mgmt. 10/20: gains maintained. one more night at 9 mg, then to 12 mg invega as of tomorrow night. 10/21: no change in presentation. decrease clozapine to 25 mg and increase paliperidone to 12 mg QHS. 10/22: continue current management and treatment plan. 10/23: continue current management and treatment plan. 10/24: Invega Sustenna per primary team. Otherwise continue current management and treatment plan. 10/25: DC clozapine and PO invega. start sustenna 234 mg tomorrow. stable presentation, no side effects. 10/26: c/o noise in my head last night keeping him up, only slept 4 hours. invega sustenna 234 mg IM today. 10/27: more active in the milieu. bizarre and disorganized. invega sustenna 156 mg scheduled for 11/02. 10/28: schedule thorazine 50 mg at 0900,1300,1700 and thorazine 200 mg QHS for help with ongoing psychosis and insomnia. 10/30/2023: No changes 10/31/2023: No changes 10/31: make daytime thorazine 50 mg doses PRN. continue 200 mg scheduled at HS. invega 156 mg tomorrow. 11/01: received sustenna 156 mg without issue. took no thorazine 50 PRN doses yesterday. sleeping adequately. continues to experience AH. 11/02: labile, disorganized last night. referring to himself in the third person today, very expressive of paranoid delusions. will investigate adding mood stabilizer versus re-titrating clozapine. 11/03: Keeping to self. Observed pacing in his room, presents anxious. Pt reports feeling alright today; referring to himself in the third person. Difficult to follow during conversation; pt stated, people are controlling him so he doesn't step out of place, so he doesn't get killed . Pt reports auditory hallucinations; pt reports the voices are telling me to not talk to anybody . pt denies SI/HI. 11/04: condition continues deteriorated from when on clozaril. restart clozaril at 25 mg QHS. DC thorazine at HS. 11/05: bland presentation today. increase clozapine to 50 mg QHS. 11/06: dark, negativistic, hopeless within his psychosis. increase clozapine to 75 mg tonight. Reason for continued inpatient stay Substantial Risk for: harm to self and inability to function Time Spent With Patient Time: Total time managing care of this patient today ____ minutes.
[2023-11-07 20:00] VITALS: BP 143/88; PULSE 100; RESP 18; TEMP 37.1; O2SAT 97
[2023-11-07] MEDS: OLANZapine ODT 10 MG TAB.RAPDIS TRANSLINGU (22:20)
[2023-11-07] MEDS: cloZAPine 25 MG TABLET 75 MG PO (22:20)
[2023-11-07] MEDS: chlorproMAZINE HCl 25 MG TABLET 50 MG PO (22:21)
[2023-11-07] MEDS: traZODone HCL 50 MG TABLET PO (22:23)
[2023-11-08 08:00] VITALS: BP 112/67; PULSE 102; RESP 16; TEMP 36.7; O2SAT 98
[2023-11-08 08:10] LABS: Neut%MD 53.9 %; Neutrophils Absolute Auto 4.9 x10*3/uL (2.0-8.3)
--- NOTE | 2023-11-08 12:51 | HO.PSYCHPN ---
Subjective Subjective Date of Service: 11/08/23 Reason For Visit: psychosis Interim History: no change in presentation. amenable to increase clozapine. per staff, +RIS. in bed. limited interactions. +AH eves. outburst at peer apparently rooted in psychotic material and experiences. Mental Status Exam Mental Status Exam Narrative: adequately dressed and groomed. cooperative. Lying on mattress on floor. Normal speech. Moderate eye contact. Appropriate affect overall. mood anxious. thoughts with paranoid delusions. no SI/HI/VH expressed. +AH. Diagnostics Vital Signs (24Hr): Vital Signs - 24 hr 11/07/23 20:00 11/08/23 08:00 Temperature 98.8 F 98.0 F Pulse Rate 100 102 H Respiratory Rate 18 16 Blood Pressure 143/88 H 112/67 Pulse Oximetry 97 98 Oxygen Delivery Method Room Air Room Air BMI result Body Mass Index 46.2 Labs 10/18/23 10:15 10/11/23 21:47 Labs: Laboratory Results - last 48 hr 11/08/23 08:04 Absolute Neuts (auto) 4.9 Medications Medications Current Medications Acetaminophen (Acetaminophen 325 Mg Tablet) 650 mg PO Q6H PRN PRN Reason: Headache/Pain Mild Scale (1-3) Last Admin: 11/06/23 02:10 Dose: 650 mg Al Hydroxide/Mg Hydroxide (Magnesium Hydrox/Alum Hydrox 30 Ml Oral.Susp) 30 ml PO Q6H PRN PRN Reason: Heartburn/Nausea Chlorpromazine HCl (Chlorpromazine Hcl 25 Mg Tablet) 50 mg PO Q4H PRN PRN Reason: severe anxiety/agitation Last Admin: 11/07/23 22:21 Dose: 50 mg Clozapine (Clozapine 100 Mg Tablet) 100 mg PO BEDTIME KYLE Hydroxyzine HCl (Hydroxyzine Hcl 25 Mg Tablet) 25 mg PO Q6H PRN PRN Reason: Anxiety Last Admin: 11/04/23 21:52 Dose: 25 mg Magnesium Hydroxide (Milk Of Magnesia 30 Ml Oral.Susp) 30 ml PO DAILY PRN PRN Reason: Constipation Olanzapine (Olanzapine Odt 10 Mg Tab.Rapdis) 10 mg TRANSLINGU TID PRN PRN Reason: agitation Last Admin: 11/07/23 22:20 Dose: 10 mg Trazodone HCl (Trazodone Hcl 50 Mg Tablet) 50 mg PO BEDTIME MRX1 PRN PRN Reason: Insomnia Last Admin: 11/07/23 22:23 Dose: 50 mg Allergies Allergies Allergy/AdvReac Type Severity Reaction Status Date / Time Penicillins [PENICILLINS] Allergy Unknown RASH Verified 10/11/23 17:29 Assessment & Plan Assessment & Plan (1) Schizophrenia: Status: Acute Code(s): F20.9 - Schizophrenia, unspecified (2) Cannabis use disorder: Status: Acute Code(s): F12.90 - Cannabis use, unspecified, uncomplicated Plan 10/12: retitrate clozapine. 10/13: hold on clozapine, titrate invega to 12 mg daily, then initiate WONG. due to pt's repeated failures in outpt Tx on PO medication, will try WONG. per pt and brother Hx, pt has h/o doing better on WONG. 10/14: continue clozapine 50 mg daily. increase invega to 6 mg QHS. titrate up on invega as tolerated and indicated over w/e. mental status substantially improved from admission. 10/15: Continue current treatment and plan 10/16: Continue current regimen and plans 10/17: increase invega to 9 mg tonight. continue clozaril 50. much improved from admission. 10/18: continue current mgmt. plan to increase invega to 12 after several nights, then start sustenna after several more. much improved from admission. 10/19: improved from admission. continue current mgmt. 10/20: gains maintained. one more night at 9 mg, then to 12 mg invega as of tomorrow night. 10/21: no change in presentation. decrease clozapine to 25 mg and increase paliperidone to 12 mg QHS. 10/22: continue current management and treatment plan. 10/23: continue current management and treatment plan. 10/24: Invega Sustenna per primary team. Otherwise continue current management and treatment plan. 10/25: DC clozapine and PO invega. start sustenna 234 mg tomorrow. stable presentation, no side effects. 10/26: c/o noise in my head last night keeping him up, only slept 4 hours. invega sustenna 234 mg IM today. 10/27: more active in the milieu. bizarre and disorganized. invega sustenna 156 mg scheduled for 11/02. 10/28: schedule thorazine 50 mg at 0900,1300,1700 and thorazine 200 mg QHS for help with ongoing psychosis and insomnia. 10/30/2023: No changes 10/31/2023: No changes 10/31: make daytime thorazine 50 mg doses PRN. continue 200 mg scheduled at HS. invega 156 mg tomorrow. 11/01: received sustenna 156 mg without issue. took no thorazine 50 PRN doses yesterday. sleeping adequately. continues to experience AH. 11/02: labile, disorganized last night. referring to himself in the third person today, very expressive of paranoid delusions. will investigate adding mood stabilizer versus re-titrating clozapine. 11/03: Keeping to self. Observed pacing in his room, presents anxious. Pt reports feeling alright today; referring to himself in the third person. Difficult to follow during conversation; pt stated, people are controlling him so he doesn't step out of place, so he doesn't get killed . Pt reports auditory hallucinations; pt reports the voices are telling me to not talk to anybody . pt denies SI/HI. 11/04: condition continues deteriorated from when on clozaril. restart clozaril at 25 mg QHS. DC thorazine at HS. 11/05: bland presentation today. increase clozapine to 50 mg QHS. 11/06: dark, negativistic, hopeless within his psychosis. increase clozapine to 75 mg tonight. 11/07: verbal outburst at peer rooted in psychotic material/experiences. increase clozapine to 100 mg tonight. Reason for continued inpatient stay Substantial Risk for: harm to self, harm to others, inability to function and rapid decompensation Time Spent With Patient Time: Total time managing care of this patient today __25__ minutes.
[2023-11-08 20:00] VITALS: BP 138/73; PULSE 116; RESP 16; TEMP 37.2; O2SAT 96
[2023-11-08] MEDS: chlorproMAZINE HCl 25 MG TABLET 50 MG PO (22:27)
[2023-11-08] MEDS: traZODone HCL 50 MG TABLET PO (22:28)
[2023-11-08] MEDS: cloZAPine 100 MG TABLET PO (22:28)
[2023-11-08] MEDS: OLANZapine ODT 10 MG TAB.RAPDIS TRANSLINGU (22:29)
[2023-11-09 07:50] VITALS: BP 106/56; PULSE 95; RESP 12; TEMP 36.7; O2SAT 93
--- NOTE | 2023-11-09 15:24 | HO.PSYCHPN ---
Subjective Subjective Date of Service: 11/09/23 Reason For Visit: psychosis Subjective Notes: Conditional Voluntary Interim History: Reviewed with Dr. Tran. keeping to self. guarded. Pt reports feeling alright today; pt stated, I'm just sleeping. I don't want to be around people . Pt reports auditory and visual hallucinations at this time; pt stated, you can see them if you look for them . Pt denies SI/HI. Medication Compliance: Yes Attending Groups: No Review of Systems Constitutional: Reports as per HPI Eyes: Reports as per HPI Reports as per HPI Cardiovascular: Reports as per HPI Respiratory: Reports as per HPI Gastrointestinal: Reports as per HPI Genitourinary: Reports as per HPI Musculoskeletal: Reports as per HPI Skin/Breast: Reports as per HPI Reports as per HPI Psychiatric: Reports as per HPI Endocrine: Reports as per HPI Hematologic/Lymphatic: Reports as per HPI Allergic/Immunologic: Reports as per HPI Mental Status Exam Mental Status Exam Patient Appearance: Appropriate Patient Orientation: Person, Place, Time and Situation Level of Consciousness: Awake Patient Behavior: Guarded Mood Description: Calm Affect Description: Calm and Flat Ability to Follow Directions: Good Speech Pattern: Clear Hallucinations: Auditory and Visual Thought Process: Linear Diagnostics Vital Signs (24Hr): Vital Signs - 24 hr 11/08/23 20:00 11/09/23 07:50 Temperature 98.9 F 98.0 F Pulse Rate 116 H 95 Respiratory Rate 16 12 Blood Pressure 138/73 106/56 L Pulse Oximetry 96 93 Oxygen Delivery Method Room Air Room Air BMI result Body Mass Index 46.2 Labs 10/18/23 10:15 10/11/23 21:47 Labs: Laboratory Results - last 48 hr 11/08/23 08:04 Absolute Neuts (auto) 4.9 Medications Medications Current Medications Acetaminophen (Acetaminophen 325 Mg Tablet) 650 mg PO Q6H PRN PRN Reason: Headache/Pain Mild Scale (1-3) Last Admin: 11/06/23 02:10 Dose: 650 mg Al Hydroxide/Mg Hydroxide (Magnesium Hydrox/Alum Hydrox 30 Ml Oral.Susp) 30 ml PO Q6H PRN PRN Reason: Heartburn/Nausea Chlorpromazine HCl (Chlorpromazine Hcl 25 Mg Tablet) 50 mg PO Q4H PRN PRN Reason: severe anxiety/agitation Last Admin: 11/08/23 22:27 Dose: 50 mg Clozapine (Clozapine 100 Mg Tablet) 100 mg PO BEDTIME KYLE Last Admin: 11/08/23 22:28 Dose: 100 mg Hydroxyzine HCl (Hydroxyzine Hcl 25 Mg Tablet) 25 mg PO Q6H PRN PRN Reason: Anxiety Last Admin: 11/04/23 21:52 Dose: 25 mg Magnesium Hydroxide (Milk Of Magnesia 30 Ml Oral.Susp) 30 ml PO DAILY PRN PRN Reason: Constipation Olanzapine (Olanzapine Odt 10 Mg Tab.Rapdis) 10 mg TRANSLINGU TID PRN PRN Reason: agitation Last Admin: 11/08/23 22:29 Dose: 10 mg Trazodone HCl (Trazodone Hcl 50 Mg Tablet) 50 mg PO BEDTIME MRX1 PRN PRN Reason: Insomnia Last Admin: 11/08/23 22:28 Dose: 50 mg Allergies Allergies Allergy/AdvReac Type Severity Reaction Status Date / Time Penicillins [PENICILLINS] Allergy Unknown RASH Verified 10/11/23 17:29 Assessment & Plan Assessment & Plan (1) Schizophrenia: Status: Acute Code(s): F20.9 - Schizophrenia, unspecified (2) Cannabis use disorder: Status: Acute Code(s): F12.90 - Cannabis use, unspecified, uncomplicated Plan 10/12: retitrate clozapine. 10/13: hold on clozapine, titrate invega to 12 mg daily, then initiate WONG. due to pt's repeated failures in outpt Tx on PO medication, will try WONG. per pt and brother Hx, pt has h/o doing better on WONG. 10/14: continue clozapine 50 mg daily. increase invega to 6 mg QHS. titrate up on invega as tolerated and indicated over w/e. mental status substantially improved from admission. 10/15: Continue current treatment and plan 10/16: Continue current regimen and plans 10/17: increase invega to 9 mg tonight. continue clozaril 50. much improved from admission. 10/18: continue current mgmt. plan to increase invega to 12 after several nights, then start sustenna after several more. much improved from admission. 10/19: improved from admission. continue current mgmt. 10/20: gains maintained. one more night at 9 mg, then to 12 mg invega as of tomorrow night. 10/21: no change in presentation. decrease clozapine to 25 mg and increase paliperidone to 12 mg QHS. 10/22: continue current management and treatment plan. 10/23: continue current management and treatment plan. 10/24: Invega Sustenna per primary team. Otherwise continue current management and treatment plan. 10/25: DC clozapine and PO invega. start sustenna 234 mg tomorrow. stable presentation, no side effects. 10/26: c/o noise in my head last night keeping him up, only slept 4 hours. invega sustenna 234 mg IM today. 10/27: more active in the milieu. bizarre and disorganized. invega sustenna 156 mg scheduled for 11/02. 10/28: schedule thorazine 50 mg at 0900,1300,1700 and thorazine 200 mg QHS for help with ongoing psychosis and insomnia. 10/30/2023: No changes 10/31/2023: No changes 10/31: make daytime thorazine 50 mg doses PRN. continue 200 mg scheduled at HS. invega 156 mg tomorrow. 11/01: received sustenna 156 mg without issue. took no thorazine 50 PRN doses yesterday. sleeping adequately. continues to experience AH. 11/02: labile, disorganized last night. referring to himself in the third person today, very expressive of paranoid delusions. will investigate adding mood stabilizer versus re-titrating clozapine. 11/03: Keeping to self. Observed pacing in his room, presents anxious. Pt reports feeling alright today; referring to himself in the third person. Difficult to follow during conversation; pt stated, people are controlling him so he doesn't step out of place, so he doesn't get killed . Pt reports auditory hallucinations; pt reports the voices are telling me to not talk to anybody . pt denies SI/HI. 11/04: condition continues deteriorated from when on clozaril. restart clozaril at 25 mg QHS. DC thorazine at HS. 11/05: bland presentation today. increase clozapine to 50 mg QHS. 11/06: dark, negativistic, hopeless within his psychosis. increase clozapine to 75 mg tonight. 11/07: verbal outburst at peer rooted in psychotic material/experiences. increase clozapine to 100 mg tonight. 11/08: continue current tx plan. Patient educated on: diagnosis and medication risk/benefits Informed Consent: understands Reason for continued inpatient stay Substantial Risk for: med/psych decompensation Time Spent With Patient Time: Total time managing care of this patient today _20___ minutes.
[2023-11-09 20:00] VITALS: BP 126/64; PULSE 115; RESP 16; TEMP 36.3; O2SAT 97
[2023-11-09] MEDS: chlorproMAZINE HCl 25 MG TABLET 50 MG PO (22:11)
[2023-11-09] MEDS: cloZAPine 100 MG TABLET PO (22:12)
[2023-11-09] MEDS: traZODone HCL 50 MG TABLET PO (22:12)
[2023-11-09] MEDS: OLANZapine ODT 10 MG TAB.RAPDIS TRANSLINGU (22:13)
[2023-11-10 08:00] VITALS: BP 121/63; PULSE 97; RESP 16; O2SAT 96
--- NOTE | 2023-11-10 15:32 | HO.PSYCHPN ---
Subjective Subjective Date of Service: 11/10/23 Reason For Visit: psychosis Interim History: calm, cooperative. less hesitant, more spontaneous, less bizarre content in brief interview. per staff, blunted, withdrawn. no mood issues. low voices. slept 7 hours. Mental Status Exam Mental Status Exam Narrative: adequately dressed and groomed. cooperative. Lying on mattress on floor. Normal speech. Moderate eye contact. Appropriate affect overall. mood anxious. no paranoid delusions expressed. no SI/HI/VH expressed. +AH. Diagnostics Vital Signs (24Hr): Vital Signs - 24 hr 11/09/23 20:00 11/10/23 08:00 Temperature 97.4 F Pulse Rate 115 H 97 Respiratory Rate 16 16 Blood Pressure 126/64 121/63 Pulse Oximetry 97 96 Oxygen Delivery Method Room Air Room Air BMI result Body Mass Index 46.2 Labs 10/18/23 10:15 10/11/23 21:47 Medications Medications Current Medications Acetaminophen (Acetaminophen 325 Mg Tablet) 650 mg PO Q6H PRN PRN Reason: Headache/Pain Mild Scale (1-3) Last Admin: 11/06/23 02:10 Dose: 650 mg Al Hydroxide/Mg Hydroxide (Magnesium Hydrox/Alum Hydrox 30 Ml Oral.Susp) 30 ml PO Q6H PRN PRN Reason: Heartburn/Nausea Chlorpromazine HCl (Chlorpromazine Hcl 25 Mg Tablet) 50 mg PO Q4H PRN PRN Reason: severe anxiety/agitation Last Admin: 11/09/23 22:11 Dose: 50 mg Clozapine (Clozapine 100 Mg Tablet) 100 mg PO BEDTIME KYLE Clozapine (Clozapine 25 Mg Tablet) 25 mg PO BEDTIME KYLE Hydroxyzine HCl (Hydroxyzine Hcl 25 Mg Tablet) 25 mg PO Q6H PRN PRN Reason: Anxiety Last Admin: 11/04/23 21:52 Dose: 25 mg Magnesium Hydroxide (Milk Of Magnesia 30 Ml Oral.Susp) 30 ml PO DAILY PRN PRN Reason: Constipation Olanzapine (Olanzapine Odt 10 Mg Tab.Rapdis) 10 mg TRANSLINGU TID PRN PRN Reason: agitation Last Admin: 11/09/23 22:13 Dose: 10 mg Trazodone HCl (Trazodone Hcl 50 Mg Tablet) 50 mg PO BEDTIME MRX1 PRN PRN Reason: Insomnia Last Admin: 11/09/23 22:12 Dose: 50 mg Allergies Allergies Allergy/AdvReac Type Severity Reaction Status Date / Time Penicillins [PENICILLINS] Allergy Unknown RASH Verified 10/11/23 17:29 Assessment & Plan Assessment & Plan (1) Schizophrenia: Status: Acute Code(s): F20.9 - Schizophrenia, unspecified (2) Cannabis use disorder: Status: Acute Code(s): F12.90 - Cannabis use, unspecified, uncomplicated Plan 10/12: retitrate clozapine. 10/13: hold on clozapine, titrate invega to 12 mg daily, then initiate WONG. due to pt's repeated failures in outpt Tx on PO medication, will try WONG. per pt and brother Hx, pt has h/o doing better on WONG. 10/14: continue clozapine 50 mg daily. increase invega to 6 mg QHS. titrate up on invega as tolerated and indicated over w/e. mental status substantially improved from admission. 10/15: Continue current treatment and plan 10/16: Continue current regimen and plans 10/17: increase invega to 9 mg tonight. continue clozaril 50. much improved from admission. 10/18: continue current mgmt. plan to increase invega to 12 after several nights, then start sustenna after several more. much improved from admission. 10/19: improved from admission. continue current mgmt. 10/20: gains maintained. one more night at 9 mg, then to 12 mg invega as of tomorrow night. 10/21: no change in presentation. decrease clozapine to 25 mg and increase paliperidone to 12 mg QHS. 10/22: continue current management and treatment plan. 10/23: continue current management and treatment plan. 10/24: Invega Sustenna per primary team. Otherwise continue current management and treatment plan. 10/25: DC clozapine and PO invega. start sustenna 234 mg tomorrow. stable presentation, no side effects. 10/26: c/o noise in my head last night keeping him up, only slept 4 hours. invega sustenna 234 mg IM today. 10/27: more active in the milieu. bizarre and disorganized. invega sustenna 156 mg scheduled for 11/02. 10/28: schedule thorazine 50 mg at 0900,1300,1700 and thorazine 200 mg QHS for help with ongoing psychosis and insomnia. 10/30/2023: No changes 10/31/2023: No changes 10/31: make daytime thorazine 50 mg doses PRN. continue 200 mg scheduled at HS. invega 156 mg tomorrow. 11/01: received sustenna 156 mg without issue. took no thorazine 50 PRN doses yesterday. sleeping adequately. continues to experience AH. 11/02: labile, disorganized last night. referring to himself in the third person today, very expressive of paranoid delusions. will investigate adding mood stabilizer versus re-titrating clozapine. 11/03: Keeping to self. Observed pacing in his room, presents anxious. Pt reports feeling alright today; referring to himself in the third person. Difficult to follow during conversation; pt stated, people are controlling him so he doesn't step out of place, so he doesn't get killed . Pt reports auditory hallucinations; pt reports the voices are telling me to not talk to anybody . pt denies SI/HI. 11/04: condition continues deteriorated from when on clozaril. restart clozaril at 25 mg QHS. DC thorazine at HS. 11/05: bland presentation today. increase clozapine to 50 mg QHS. 11/06: dark, negativistic, hopeless within his psychosis. increase clozapine to 75 mg tonight. 11/07: verbal outburst at peer rooted in psychotic material/experiences. increase clozapine to 100 mg tonight. 11/08: continue current tx plan. 11/09: more spontaneous, no delusions offered, no longer expressing self in a bizarre way (referring to self in third person). increase clozapine to 125 mg tonight. Reason for continued inpatient stay Substantial Risk for: inability to function and med/psych decompensation Time Spent With Patient Time: Total time managing care of this patient today ___25_ minutes.
[2023-11-10 19:14] VITALS: BP 133/66; PULSE 112; RESP 16; TEMP 36.5; O2SAT 96
[2023-11-10] MEDS: cloZAPine 100 MG TABLET PO (22:03)
[2023-11-10] MEDS: cloZAPine 25 MG TABLET PO (22:03)
[2023-11-10] MEDS: OLANZapine ODT 10 MG TAB.RAPDIS TRANSLINGU (22:05)
[2023-11-10] MEDS: traZODone HCL 50 MG TABLET PO (22:05)
[2023-11-11 07:00] VITALS: BMI 46.2
[2023-11-11 07:46] VITALS: BP 110/63; PULSE 99; RESP 18; TEMP 36.8; O2SAT 94
--- NOTE | 2023-11-11 12:52 | HO.PSYCHPN ---
Subjective Subjective Date of Service: 11/11/23 Reason For Visit: psychosis Interim History: continues more organized and less bizarre. appears somnolent. denies any problems with clozaril titration. says AH a little bit better. per staff, +AH. Mental Status Exam Mental Status Exam Narrative: adequately dressed and groomed. cooperative. Lying on mattress on floor. Normal speech. Moderate eye contact. Appropriate affect overall. mood anxious. no paranoid delusions expressed. no SI/HI/VH expressed. +AH. Diagnostics Vital Signs (24Hr): Vital Signs - 24 hr 11/10/23 19:14 11/11/23 07:46 Temperature 97.7 F 98.2 F Pulse Rate 112 H 99 Respiratory Rate 16 18 Blood Pressure 133/66 110/63 Pulse Oximetry 96 94 Oxygen Delivery Method Room Air Room Air BMI result Body Mass Index 46.2 Labs 10/18/23 10:15 10/11/23 21:47 Medications Medications Current Medications Acetaminophen (Acetaminophen 325 Mg Tablet) 650 mg PO Q6H PRN PRN Reason: Headache/Pain Mild Scale (1-3) Last Admin: 11/06/23 02:10 Dose: 650 mg Al Hydroxide/Mg Hydroxide (Magnesium Hydrox/Alum Hydrox 30 Ml Oral.Susp) 30 ml PO Q6H PRN PRN Reason: Heartburn/Nausea Chlorpromazine HCl (Chlorpromazine Hcl 25 Mg Tablet) 50 mg PO Q4H PRN PRN Reason: severe anxiety/agitation Last Admin: 11/09/23 22:11 Dose: 50 mg Clozapine (Clozapine 100 Mg Tablet) 100 mg PO BEDTIME KYLE Last Admin: 11/10/23 22:03 Dose: 100 mg Clozapine (Clozapine 25 Mg Tablet) 50 mg PO BEDTIME KYLE Hydroxyzine HCl (Hydroxyzine Hcl 25 Mg Tablet) 25 mg PO Q6H PRN PRN Reason: Anxiety Last Admin: 11/04/23 21:52 Dose: 25 mg Magnesium Hydroxide (Milk Of Magnesia 30 Ml Oral.Susp) 30 ml PO DAILY PRN PRN Reason: Constipation Olanzapine (Olanzapine Odt 10 Mg Tab.Rapdis) 10 mg TRANSLINGU TID PRN PRN Reason: agitation Last Admin: 11/10/23 22:05 Dose: 10 mg Trazodone HCl (Trazodone Hcl 50 Mg Tablet) 50 mg PO BEDTIME MRX1 PRN PRN Reason: Insomnia Last Admin: 11/10/23 22:05 Dose: 50 mg Allergies Allergies Allergy/AdvReac Type Severity Reaction Status Date / Time Penicillins [PENICILLINS] Allergy Unknown RASH Verified 10/11/23 17:29 Assessment & Plan Assessment & Plan (1) Schizophrenia: Status: Acute Code(s): F20.9 - Schizophrenia, unspecified (2) Cannabis use disorder: Status: Acute Code(s): F12.90 - Cannabis use, unspecified, uncomplicated Plan 10/12: retitrate clozapine. 10/13: hold on clozapine, titrate invega to 12 mg daily, then initiate WONG. due to pt's repeated failures in outpt Tx on PO medication, will try WONG. per pt and brother Hx, pt has h/o doing better on WONG. 10/14: continue clozapine 50 mg daily. increase invega to 6 mg QHS. titrate up on invega as tolerated and indicated over w/e. mental status substantially improved from admission. 10/15: Continue current treatment and plan 10/16: Continue current regimen and plans 10/17: increase invega to 9 mg tonight. continue clozaril 50. much improved from admission. 10/18: continue current mgmt. plan to increase invega to 12 after several nights, then start sustenna after several more. much improved from admission. 10/19: improved from admission. continue current mgmt. 10/20: gains maintained. one more night at 9 mg, then to 12 mg invega as of tomorrow night. 10/21: no change in presentation. decrease clozapine to 25 mg and increase paliperidone to 12 mg QHS. 10/22: continue current management and treatment plan. 10/23: continue current management and treatment plan. 10/24: Invega Sustenna per primary team. Otherwise continue current management and treatment plan. 10/25: DC clozapine and PO invega. start sustenna 234 mg tomorrow. stable presentation, no side effects. 10/26: c/o noise in my head last night keeping him up, only slept 4 hours. invega sustenna 234 mg IM today. 10/27: more active in the milieu. bizarre and disorganized. invega sustenna 156 mg scheduled for 11/02. 10/28: schedule thorazine 50 mg at 0900,1300,1700 and thorazine 200 mg QHS for help with ongoing psychosis and insomnia. 10/30/2023: No changes 10/31/2023: No changes 10/31: make daytime thorazine 50 mg doses PRN. continue 200 mg scheduled at HS. invega 156 mg tomorrow. 11/01: received sustenna 156 mg without issue. took no thorazine 50 PRN doses yesterday. sleeping adequately. continues to experience AH. 11/02: labile, disorganized last night. referring to himself in the third person today, very expressive of paranoid delusions. will investigate adding mood stabilizer versus re-titrating clozapine. 11/03: Keeping to self. Observed pacing in his room, presents anxious. Pt reports feeling alright today; referring to himself in the third person. Difficult to follow during conversation; pt stated, people are controlling him so he doesn't step out of place, so he doesn't get killed . Pt reports auditory hallucinations; pt reports the voices are telling me to not talk to anybody . pt denies SI/HI. 11/04: condition continues deteriorated from when on clozaril. restart clozaril at 25 mg QHS. DC thorazine at HS. 11/05: bland presentation today. increase clozapine to 50 mg QHS. 11/06: dark, negativistic, hopeless within his psychosis. increase clozapine to 75 mg tonight. 11/07: verbal outburst at peer rooted in psychotic material/experiences. increase clozapine to 100 mg tonight. 11/08: continue current tx plan. 11/09: more spontaneous, no delusions offered, no longer expressing self in a bizarre way (referring to self in third person). increase clozapine to 125 mg tonight. 11/10: more organized, no bizarre content. no negative s/e. increase clozaril to 150 tonight. Reason for continued inpatient stay Substantial Risk for: inability to function and rapid decompensation Time Spent With Patient Time: Total time managing care of this patient today __25__ minutes.
[2023-11-11 19:58] VITALS: BP 121/66; PULSE 109; RESP 18; TEMP 36.4; O2SAT 97
[2023-11-11] MEDS: cloZAPine 25 MG TABLET 50 MG PO (22:23)
[2023-11-11] MEDS: cloZAPine 100 MG TABLET PO (22:23)
[2023-11-11] MEDS: OLANZapine ODT 10 MG TAB.RAPDIS TRANSLINGU (22:28)
[2023-11-12 07:30] VITALS: BP 122/68; PULSE 100; RESP 14; TEMP 37.1; O2SAT 93
--- NOTE | 2023-11-12 12:22 | HO.PSYCHPN ---
Subjective Subjective Date of Service: 11/12/23 Reason For Visit: psychosis Interim History: reports 150 of clozaril last night made him suddenly drool profusely and get dizzy, so he prefers to stick with 125 mg. reports AH all right. per staff, flat, withdrawn. AH better. taking meds. up at 0400, c/o hangover feeling. slept about 6 hours. Mental Status Exam Mental Status Exam Narrative: adequately dressed and groomed. cooperative. Lying on mattress on floor. Normal speech. Moderate eye contact. Appropriate affect overall. mood anxious. no paranoid delusions expressed. no SI/HI/VH expressed. +AH. Diagnostics Vital Signs (24Hr): Vital Signs - 24 hr 11/11/23 19:58 11/12/23 07:30 Temperature 97.5 F 98.7 F Pulse Rate 109 H 100 Respiratory Rate 18 14 Blood Pressure 121/66 122/68 Pulse Oximetry 97 93 Oxygen Delivery Method Room Air Room Air BMI result Body Mass Index 46.2 Labs 10/18/23 10:15 10/11/23 21:47 Medications Medications Current Medications Acetaminophen (Acetaminophen 325 Mg Tablet) 650 mg PO Q6H PRN PRN Reason: Headache/Pain Mild Scale (1-3) Last Admin: 11/06/23 02:10 Dose: 650 mg Al Hydroxide/Mg Hydroxide (Magnesium Hydrox/Alum Hydrox 30 Ml Oral.Susp) 30 ml PO Q6H PRN PRN Reason: Heartburn/Nausea Chlorpromazine HCl (Chlorpromazine Hcl 25 Mg Tablet) 50 mg PO Q4H PRN PRN Reason: severe anxiety/agitation Last Admin: 11/09/23 22:11 Dose: 50 mg Clozapine (Clozapine 100 Mg Tablet) 100 mg PO BEDTIME KLYE Last Admin: 11/11/23 22:23 Dose: 100 mg Clozapine (Clozapine 25 Mg Tablet) 25 mg PO BEDTIME KYLE Hydroxyzine HCl (Hydroxyzine Hcl 25 Mg Tablet) 25 mg PO Q6H PRN PRN Reason: Anxiety Last Admin: 11/04/23 21:52 Dose: 25 mg Magnesium Hydroxide (Milk Of Magnesia 30 Ml Oral.Susp) 30 ml PO DAILY PRN PRN Reason: Constipation Olanzapine (Olanzapine Odt 10 Mg Tab.Rapdis) 10 mg TRANSLINGU TID PRN PRN Reason: agitation Last Admin: 11/11/23 22:28 Dose: 10 mg Trazodone HCl (Trazodone Hcl 50 Mg Tablet) 50 mg PO BEDTIME MRX1 PRN PRN Reason: Insomnia Last Admin: 11/10/23 22:05 Dose: 50 mg Allergies Allergies Allergy/AdvReac Type Severity Reaction Status Date / Time Penicillins [PENICILLINS] Allergy Unknown RASH Verified 10/11/23 17:29 Assessment & Plan Assessment & Plan (1) Schizophrenia: Status: Acute Code(s): F20.9 - Schizophrenia, unspecified (2) Cannabis use disorder: Status: Acute Code(s): F12.90 - Cannabis use, unspecified, uncomplicated Plan 10/12: retitrate clozapine. 10/13: hold on clozapine, titrate invega to 12 mg daily, then initiate WONG. due to pt's repeated failures in outpt Tx on PO medication, will try WONG. per pt and brother Hx, pt has h/o doing better on WONG. 10/14: continue clozapine 50 mg daily. increase invega to 6 mg QHS. titrate up on invega as tolerated and indicated over w/e. mental status substantially improved from admission. 10/15: Continue current treatment and plan 10/16: Continue current regimen and plans 10/17: increase invega to 9 mg tonight. continue clozaril 50. much improved from admission. 10/18: continue current mgmt. plan to increase invega to 12 after several nights, then start sustenna after several more. much improved from admission. 10/19: improved from admission. continue current mgmt. 10/20: gains maintained. one more night at 9 mg, then to 12 mg invega as of tomorrow night. 10/21: no change in presentation. decrease clozapine to 25 mg and increase paliperidone to 12 mg QHS. 10/22: continue current management and treatment plan. 10/23: continue current management and treatment plan. 10/24: Invega Sustenna per primary team. Otherwise continue current management and treatment plan. 10/25: DC clozapine and PO invega. start sustenna 234 mg tomorrow. stable presentation, no side effects. 10/26: c/o noise in my head last night keeping him up, only slept 4 hours. invega sustenna 234 mg IM today. 10/27: more active in the milieu. bizarre and disorganized. invega sustenna 156 mg scheduled for 11/02. 10/28: schedule thorazine 50 mg at 0900,1300,1700 and thorazine 200 mg QHS for help with ongoing psychosis and insomnia. 10/30/2023: No changes 10/31/2023: No changes 10/31: make daytime thorazine 50 mg doses PRN. continue 200 mg scheduled at HS. invega 156 mg tomorrow. 11/01: received sustenna 156 mg without issue. took no thorazine 50 PRN doses yesterday. sleeping adequately. continues to experience AH. 11/02: labile, disorganized last night. referring to himself in the third person today, very expressive of paranoid delusions. will investigate adding mood stabilizer versus re-titrating clozapine. 11/03: Keeping to self. Observed pacing in his room, presents anxious. Pt reports feeling alright today; referring to himself in the third person. Difficult to follow during conversation; pt stated, people are controlling him so he doesn't step out of place, so he doesn't get killed . Pt reports auditory hallucinations; pt reports the voices are telling me to not talk to anybody . pt denies SI/HI. 11/04: condition continues deteriorated from when on clozaril. restart clozaril at 25 mg QHS. DC thorazine at HS. 11/05: bland presentation today. increase clozapine to 50 mg QHS. 11/06: dark, negativistic, hopeless within his psychosis. increase clozapine to 75 mg tonight. 11/07: verbal outburst at peer rooted in psychotic material/experiences. increase clozapine to 100 mg tonight. 11/08: continue current tx plan. 11/09: more spontaneous, no delusions offered, no longer expressing self in a bizarre way (referring to self in third person). increase clozapine to 125 mg tonight. 11/10: more organized, no bizarre content. no negative s/e. increase clozaril to 150 tonight. 11/11: c/o sudden sialorrhea and dizziness post-clozapine, asks for dosing to be reduced to 125 mg tonight, which is done. remains with improved AH and relatedness. no bizarre content today. Reason for continued inpatient stay Substantial Risk for: inability to function and rapid decompensation Time Spent With Patient Time: Total time managing care of this patient today ___25_ minutes.
[2023-11-12 20:00] VITALS: BP 121/55; PULSE 100; RESP 18; TEMP 36.7; O2SAT 98
[2023-11-12] MEDS: cloZAPine 25 MG TABLET PO (22:34)
[2023-11-12] MEDS: traZODone HCL 50 MG TABLET PO (22:34)
[2023-11-12] MEDS: cloZAPine 100 MG TABLET PO (22:34)
[2023-11-13 07:40] VITALS: BP 94/58; PULSE 96; RESP 12; TEMP 36.9; O2SAT 94
--- NOTE | 2023-11-13 09:55 | HO.PSYCHPN ---
Subjective Subjective Date of Service: 11/13/23 Reason For Visit: psychosis Interim History: Patient was seen and discussed in rounds today. Records and plans were reviewed. He is visible, compliant with medications. Affect is flat. Eating and sleeping adequately. No dangerous behaviors. No SI. No changes were made today Medication Compliance: Yes Side effects from medications: Yes (Sedation higher doses of Clozaril) Mental Status Exam Mental Status Exam Narrative: In today's visit he is alert, pleasant and minimally interactive. Soft-spoken speech. Minimal eye contact. Affect is constricted. No acute signs of psychosis but has admitted to auditory hallucinations. No delusions. No SI. Cognitively is grossly intact. Judgment is mostly intact. Diagnostics Vital Signs (24Hr): Vital Signs - 24 hr 11/12/23 20:00 11/13/23 07:40 Temperature 98.1 F 98.5 F Pulse Rate 100 96 Respiratory Rate 18 12 Blood Pressure 121/55 L 94/58 L Pulse Oximetry 98 94 Oxygen Delivery Method Room Air Room Air BMI result Body Mass Index 46.2 Labs 10/18/23 10:15 10/11/23 21:47 Medications Medications Current Medications Acetaminophen (Acetaminophen 325 Mg Tablet) 650 mg PO Q6H PRN PRN Reason: Headache/Pain Mild Scale (1-3) Last Admin: 11/06/23 02:10 Dose: 650 mg Al Hydroxide/Mg Hydroxide (Magnesium Hydrox/Alum Hydrox 30 Ml Oral.Susp) 30 ml PO Q6H PRN PRN Reason: Heartburn/Nausea Chlorpromazine HCl (Chlorpromazine Hcl 25 Mg Tablet) 50 mg PO Q4H PRN PRN Reason: severe anxiety/agitation Last Admin: 11/09/23 22:11 Dose: 50 mg Clozapine (Clozapine 100 Mg Tablet) 100 mg PO BEDTIME KYLE Last Admin: 11/12/23 22:34 Dose: 100 mg Clozapine (Clozapine 25 Mg Tablet) 25 mg PO BEDTIME KYLE Last Admin: 11/12/23 22:34 Dose: 25 mg Hydroxyzine HCl (Hydroxyzine Hcl 25 Mg Tablet) 25 mg PO Q6H PRN PRN Reason: Anxiety Last Admin: 11/04/23 21:52 Dose: 25 mg Magnesium Hydroxide (Milk Of Magnesia 30 Ml Oral.Susp) 30 ml PO DAILY PRN PRN Reason: Constipation Olanzapine (Olanzapine Odt 10 Mg Tab.Rapdis) 10 mg TRANSLINGU TID PRN PRN Reason: agitation Last Admin: 11/11/23 22:28 Dose: 10 mg Trazodone HCl (Trazodone Hcl 50 Mg Tablet) 50 mg PO BEDTIME MRX1 PRN PRN Reason: Insomnia Last Admin: 11/12/23 22:34 Dose: 50 mg Allergies Allergies Allergy/AdvReac Type Severity Reaction Status Date / Time Penicillins [PENICILLINS] Allergy Unknown RASH Verified 10/11/23 17:29 Assessment & Plan Assessment & Plan (1) Schizophrenia: Status: Acute Code(s): F20.9 - Schizophrenia, unspecified (2) Cannabis use disorder: Status: Acute Code(s): F12.90 - Cannabis use, unspecified, uncomplicated Plan 10/12: retitrate clozapine. 10/13: hold on clozapine, titrate invega to 12 mg daily, then initiate WONG. due to pt's repeated failures in outpt Tx on PO medication, will try WONG. per pt and brother Hx, pt has h/o doing better on WONG. 10/14: continue clozapine 50 mg daily. increase invega to 6 mg QHS. titrate up on invega as tolerated and indicated over w/e. mental status substantially improved from admission. 10/15: Continue current treatment and plan 10/16: Continue current regimen and plans 10/17: increase invega to 9 mg tonight. continue clozaril 50. much improved from admission. 10/18: continue current mgmt. plan to increase invega to 12 after several nights, then start sustenna after several more. much improved from admission. 10/19: improved from admission. continue current mgmt. 10/20: gains maintained. one more night at 9 mg, then to 12 mg invega as of tomorrow night. 10/21: no change in presentation. decrease clozapine to 25 mg and increase paliperidone to 12 mg QHS. 10/22: continue current management and treatment plan. 10/23: continue current management and treatment plan. 10/24: Invega Sustenna per primary team. Otherwise continue current management and treatment plan. 10/25: DC clozapine and PO invega. start sustenna 234 mg tomorrow. stable presentation, no side effects. 10/26: c/o noise in my head last night keeping him up, only slept 4 hours. invega sustenna 234 mg IM today. 10/27: more active in the milieu. bizarre and disorganized. invega sustenna 156 mg scheduled for 11/02. 10/28: schedule thorazine 50 mg at 0900,1300,1700 and thorazine 200 mg QHS for help with ongoing psychosis and insomnia. 10/30/2023: No changes 10/31/2023: No changes 10/31: make daytime thorazine 50 mg doses PRN. continue 200 mg scheduled at HS. invega 156 mg tomorrow. 11/01: received sustenna 156 mg without issue. took no thorazine 50 PRN doses yesterday. sleeping adequately. continues to experience AH. 11/02: labile, disorganized last night. referring to himself in the third person today, very expressive of paranoid delusions. will investigate adding mood stabilizer versus re-titrating clozapine. 11/03: Keeping to self. Observed pacing in his room, presents anxious. Pt reports feeling alright today; referring to himself in the third person. Difficult to follow during conversation; pt stated, people are controlling him so he doesn't step out of place, so he doesn't get killed . Pt reports auditory hallucinations; pt reports the voices are telling me to not talk to anybody . pt denies SI/HI. 11/04: condition continues deteriorated from when on clozaril. restart clozaril at 25 mg QHS. DC thorazine at HS. 11/05: bland presentation today. increase clozapine to 50 mg QHS. 11/06: dark, negativistic, hopeless within his psychosis. increase clozapine to 75 mg tonight. 11/07: verbal outburst at peer rooted in psychotic material/experiences. increase clozapine to 100 mg tonight. 11/08: continue current tx plan. 11/09: more spontaneous, no delusions offered, no longer expressing self in a bizarre way (referring to self in third person). increase clozapine to 125 mg tonight. 11/10: more organized, no bizarre content. no negative s/e. increase clozaril to 150 tonight. 11/11: c/o sudden sialorrhea and dizziness post-clozapine, asks for dosing to be reduced to 125 mg tonight, which is done. remains with improved AH and relatedness. no bizarre content today. 11/12: Continue current regimen and plans Reason for continued inpatient stay Substantial Risk for: rapid decompensation Time Spent With Patient Time: Total time managing care of this patient today ____ minutes.
[2023-11-13 20:00] VITALS: BP 109/70; PULSE 112; RESP 16; TEMP 36.7; O2SAT 98
[2023-11-13] MEDS: cloZAPine 25 MG TABLET PO (22:09)
[2023-11-13] MEDS: cloZAPine 100 MG TABLET PO (22:09)
[2023-11-13] MEDS: traZODone HCL 50 MG TABLET PO (22:09)
[2023-11-14 08:00] VITALS: BP 107/54; PULSE 109; RESP 18; TEMP 36.4; O2SAT 94
--- NOTE | 2023-11-14 10:12 | HO.PSYCHPN ---
Subjective Subjective Date of Service: 11/14/23 Reason For Visit: psychosis Subjective Notes: Conditional Voluntary Interim History: Patient was seen and discussed in rounds today. Records and plans were reviewed. He continues to be around marginally and has been visible but not interactive with others. Eating some breakfast and dinner mostly. Compliant with medications with no side effects. No SI. No behavioral issues. No changes were made today Medication Compliance: Yes Side effects from medications: Yes (Sedation higher doses of Clozaril) Review of Systems Review of Systems Yes all other systems are reviewed and are negative Mental Status Exam Mental Status Exam Narrative: In today's visit he is alert, pleasant and minimally interactive. Soft-spoken speech. Minimal eye contact. Affect is constricted. No acute signs of psychosis but has admitted to auditory hallucinations. No delusions. No SI. Cognitively is grossly intact. Judgment is mostly intact. Diagnostics Vital Signs (24Hr): Vital Signs - 24 hr 11/13/23 20:00 11/14/23 08:00 Temperature 98.1 F 97.5 F Pulse Rate 112 H 109 H Respiratory Rate 16 18 Blood Pressure 109/70 107/54 L Pulse Oximetry 98 94 Oxygen Delivery Method Room Air Room Air BMI result Body Mass Index 46.2 Labs 10/18/23 10:15 10/11/23 21:47 Medications Medications Current Medications Acetaminophen (Acetaminophen 325 Mg Tablet) 650 mg PO Q6H PRN PRN Reason: Headache/Pain Mild Scale (1-3) Last Admin: 11/06/23 02:10 Dose: 650 mg Al Hydroxide/Mg Hydroxide (Magnesium Hydrox/Alum Hydrox 30 Ml Oral.Susp) 30 ml PO Q6H PRN PRN Reason: Heartburn/Nausea Chlorpromazine HCl (Chlorpromazine Hcl 25 Mg Tablet) 50 mg PO Q4H PRN PRN Reason: severe anxiety/agitation Last Admin: 11/09/23 22:11 Dose: 50 mg Clozapine (Clozapine 100 Mg Tablet) 100 mg PO BEDTIME KYLE Last Admin: 11/13/23 22:09 Dose: 100 mg Clozapine (Clozapine 25 Mg Tablet) 25 mg PO BEDTIME KYLE Last Admin: 11/13/23 22:09 Dose: 25 mg Hydroxyzine HCl (Hydroxyzine Hcl 25 Mg Tablet) 25 mg PO Q6H PRN PRN Reason: Anxiety Last Admin: 11/04/23 21:52 Dose: 25 mg Magnesium Hydroxide (Milk Of Magnesia 30 Ml Oral.Susp) 30 ml PO DAILY PRN PRN Reason: Constipation Olanzapine (Olanzapine Odt 10 Mg Tab.Rapdis) 10 mg TRANSLINGU TID PRN PRN Reason: agitation Last Admin: 11/11/23 22:28 Dose: 10 mg Trazodone HCl (Trazodone Hcl 50 Mg Tablet) 50 mg PO BEDTIME MRX1 PRN PRN Reason: Insomnia Last Admin: 11/13/23 22:09 Dose: 50 mg Allergies Allergies Allergy/AdvReac Type Severity Reaction Status Date / Time Penicillins [PENICILLINS] Allergy Unknown RASH Verified 10/11/23 17:29 Assessment & Plan Assessment & Plan (1) Schizophrenia: Status: Acute Code(s): F20.9 - Schizophrenia, unspecified (2) Cannabis use disorder: Status: Acute Code(s): F12.90 - Cannabis use, unspecified, uncomplicated Plan 10/12: retitrate clozapine. 10/13: hold on clozapine, titrate invega to 12 mg daily, then initiate WONG. due to pt's repeated failures in outpt Tx on PO medication, will try WONG. per pt and brother Hx, pt has h/o doing better on WONG. 10/14: continue clozapine 50 mg daily. increase invega to 6 mg QHS. titrate up on invega as tolerated and indicated over w/e. mental status substantially improved from admission. 10/15: Continue current treatment and plan 10/16: Continue current regimen and plans 10/17: increase invega to 9 mg tonight. continue clozaril 50. much improved from admission. 10/18: continue current mgmt. plan to increase invega to 12 after several nights, then start sustenna after several more. much improved from admission. 10/19: improved from admission. continue current mgmt. 10/20: gains maintained. one more night at 9 mg, then to 12 mg invega as of tomorrow night. 10/21: no change in presentation. decrease clozapine to 25 mg and increase paliperidone to 12 mg QHS. 10/22: continue current management and treatment plan. 10/23: continue current management and treatment plan. 10/24: Invega Sustenna per primary team. Otherwise continue current management and treatment plan. 10/25: DC clozapine and PO invega. start sustenna 234 mg tomorrow. stable presentation, no side effects. 10/26: c/o noise in my head last night keeping him up, only slept 4 hours. invega sustenna 234 mg IM today. 10/27: more active in the milieu. bizarre and disorganized. invega sustenna 156 mg scheduled for 11/02. 10/28: schedule thorazine 50 mg at 0900,1300,1700 and thorazine 200 mg QHS for help with ongoing psychosis and insomnia. 10/30/2023: No changes 10/31/2023: No changes 10/31: make daytime thorazine 50 mg doses PRN. continue 200 mg scheduled at HS. invega 156 mg tomorrow. 11/01: received sustenna 156 mg without issue. took no thorazine 50 PRN doses yesterday. sleeping adequately. continues to experience AH. 11/02: labile, disorganized last night. referring to himself in the third person today, very expressive of paranoid delusions. will investigate adding mood stabilizer versus re-titrating clozapine. 11/03: Keeping to self. Observed pacing in his room, presents anxious. Pt reports feeling alright today; referring to himself in the third person. Difficult to follow during conversation; pt stated, people are controlling him so he doesn't step out of place, so he doesn't get killed . Pt reports auditory hallucinations; pt reports the voices are telling me to not talk to anybody . pt denies SI/HI. 11/04: condition continues deteriorated from when on clozaril. restart clozaril at 25 mg QHS. DC thorazine at HS. 11/05: bland presentation today. increase clozapine to 50 mg QHS. 11/06: dark, negativistic, hopeless within his psychosis. increase clozapine to 75 mg tonight. 11/07: verbal outburst at peer rooted in psychotic material/experiences. increase clozapine to 100 mg tonight. 11/08: continue current tx plan. 11/09: more spontaneous, no delusions offered, no longer expressing self in a bizarre way (referring to self in third person). increase clozapine to 125 mg tonight. 11/10: more organized, no bizarre content. no negative s/e. increase clozaril to 150 tonight. 11/11: c/o sudden sialorrhea and dizziness post-clozapine, asks for dosing to be reduced to 125 mg tonight, which is done. remains with improved AH and relatedness. no bizarre content today. 11/12: Continue current regimen and plans 11/13: Continue current plans and regimen. Reason for continued inpatient stay Substantial Risk for: rapid decompensation Time Spent With Patient Time: Total time managing care of this patient today ____ minutes.
[2023-11-14 19:54] VITALS: BP 115/67; PULSE 111; RESP 18; TEMP 36.9; O2SAT 96
[2023-11-14] MEDS: cloZAPine 100 MG TABLET PO (22:36)
[2023-11-14] MEDS: traZODone HCL 50 MG TABLET PO (22:36)
[2023-11-14] MEDS: cloZAPine 25 MG TABLET PO (22:36)
[2023-11-15] MEDS: traZODone HCL 50 MG TABLET PO (00:35)
[2023-11-15] MEDS: hydrOXYzine HCL 25 MG TABLET PO ×2 (00:35→22:18)
[2023-11-15 07:55] VITALS: BP 112/70; PULSE 92; RESP 18; TEMP 36.9; O2SAT 95
[2023-11-15 09:16] LABS: Neut%MD 51.6 %; Neutrophils Absolute Auto 4.5 x10*3/uL (2.0-8.3); WBCANC 8.6 X10*3/uL
--- NOTE | 2023-11-15 15:49 | HO.PSYCHPN ---
Subjective Subjective Date of Service: 11/15/23 Reason For Visit: psychosis Interim History: no change in presentation. improved from earlier last week. plan to discharge later this week. per staff, flat/withdrawn. guarded. c/o AH eves, but AH much better. +meds. asking about discharge. Mental Status Exam Mental Status Exam Narrative: adequately dressed and groomed. cooperative. Lying on mattress on floor. Normal speech. Moderate eye contact. Appropriate affect overall. mood anxious. no paranoid delusions expressed. no SI/HI/VH expressed. +AH. Diagnostics Vital Signs (24Hr): Vital Signs - 24 hr 11/14/23 19:54 11/15/23 07:55 Temperature 98.5 F 98.5 F Pulse Rate 111 H 92 Respiratory Rate 18 18 Blood Pressure 115/67 112/70 Pulse Oximetry 96 95 Oxygen Delivery Method Room Air Room Air BMI result Body Mass Index 46.2 Labs 10/18/23 10:15 10/11/23 21:47 Labs: Laboratory Results - last 48 hr 11/15/23 08:05 Absolute Neuts (auto) 4.5 Medications Medications Current Medications Acetaminophen (Acetaminophen 325 Mg Tablet) 650 mg PO Q6H PRN PRN Reason: Headache/Pain Mild Scale (1-3) Last Admin: 11/06/23 02:10 Dose: 650 mg Al Hydroxide/Mg Hydroxide (Magnesium Hydrox/Alum Hydrox 30 Ml Oral.Susp) 30 ml PO Q6H PRN PRN Reason: Heartburn/Nausea Chlorpromazine HCl (Chlorpromazine Hcl 25 Mg Tablet) 50 mg PO Q4H PRN PRN Reason: severe anxiety/agitation Last Admin: 11/09/23 22:11 Dose: 50 mg Clozapine (Clozapine 100 Mg Tablet) 100 mg PO BEDTIME KYLE Last Admin: 11/14/23 22:36 Dose: 100 mg Clozapine (Clozapine 25 Mg Tablet) 25 mg PO BEDTIME KYLE Last Admin: 11/14/23 22:36 Dose: 25 mg Hydroxyzine HCl (Hydroxyzine Hcl 25 Mg Tablet) 25 mg PO Q6H PRN PRN Reason: Anxiety Last Admin: 11/15/23 00:35 Dose: 25 mg Magnesium Hydroxide (Milk Of Magnesia 30 Ml Oral.Susp) 30 ml PO DAILY PRN PRN Reason: Constipation Olanzapine (Olanzapine Odt 10 Mg Tab.Rapdis) 10 mg TRANSLINGU TID PRN PRN Reason: agitation Last Admin: 11/11/23 22:28 Dose: 10 mg Trazodone HCl (Trazodone Hcl 50 Mg Tablet) 50 mg PO BEDTIME MRX1 PRN PRN Reason: Insomnia Last Admin: 11/15/23 00:35 Dose: 50 mg Allergies Allergies Allergy/AdvReac Type Severity Reaction Status Date / Time Penicillins [PENICILLINS] Allergy Unknown RASH Verified 10/11/23 17:29 Assessment & Plan Assessment & Plan (1) Schizophrenia: Status: Acute Code(s): F20.9 - Schizophrenia, unspecified (2) Cannabis use disorder: Status: Acute Code(s): F12.90 - Cannabis use, unspecified, uncomplicated Plan 10/12: retitrate clozapine. 10/13: hold on clozapine, titrate invega to 12 mg daily, then initiate WONG. due to pt's repeated failures in outpt Tx on PO medication, will try WONG. per pt and brother Hx, pt has h/o doing better on WONG. 10/14: continue clozapine 50 mg daily. increase invega to 6 mg QHS. titrate up on invega as tolerated and indicated over w/e. mental status substantially improved from admission. 10/15: Continue current treatment and plan 10/16: Continue current regimen and plans 10/17: increase invega to 9 mg tonight. continue clozaril 50. much improved from admission. 10/18: continue current mgmt. plan to increase invega to 12 after several nights, then start sustenna after several more. much improved from admission. 10/19: improved from admission. continue current mgmt. 10/20: gains maintained. one more night at 9 mg, then to 12 mg invega as of tomorrow night. 10/21: no change in presentation. decrease clozapine to 25 mg and increase paliperidone to 12 mg QHS. 10/22: continue current management and treatment plan. 10/23: continue current management and treatment plan. 10/24: Invega Sustenna per primary team. Otherwise continue current management and treatment plan. 10/25: DC clozapine and PO invega. start sustenna 234 mg tomorrow. stable presentation, no side effects. 10/26: c/o noise in my head last night keeping him up, only slept 4 hours. invega sustenna 234 mg IM today. 10/27: more active in the milieu. bizarre and disorganized. invega sustenna 156 mg scheduled for 11/02. 10/28: schedule thorazine 50 mg at 0900,1300,1700 and thorazine 200 mg QHS for help with ongoing psychosis and insomnia. 10/30/2023: No changes 10/31/2023: No changes 10/31: make daytime thorazine 50 mg doses PRN. continue 200 mg scheduled at HS. invega 156 mg tomorrow. 11/01: received sustenna 156 mg without issue. took no thorazine 50 PRN doses yesterday. sleeping adequately. continues to experience AH. 11/02: labile, disorganized last night. referring to himself in the third person today, very expressive of paranoid delusions. will investigate adding mood stabilizer versus re-titrating clozapine. 11/03: Keeping to self. Observed pacing in his room, presents anxious. Pt reports feeling alright today; referring to himself in the third person. Difficult to follow during conversation; pt stated, people are controlling him so he doesn't step out of place, so he doesn't get killed . Pt reports auditory hallucinations; pt reports the voices are telling me to not talk to anybody . pt denies SI/HI. 11/04: condition continues deteriorated from when on clozaril. restart clozaril at 25 mg QHS. DC thorazine at HS. 11/05: bland presentation today. increase clozapine to 50 mg QHS. 11/06: dark, negativistic, hopeless within his psychosis. increase clozapine to 75 mg tonight. 11/07: verbal outburst at peer rooted in psychotic material/experiences. increase clozapine to 100 mg tonight. 11/08: continue current tx plan. 11/09: more spontaneous, no delusions offered, no longer expressing self in a bizarre way (referring to self in third person). increase clozapine to 125 mg tonight. 11/10: more organized, no bizarre content. no negative s/e. increase clozaril to 150 tonight. 11/11: c/o sudden sialorrhea and dizziness post-clozapine, asks for dosing to be reduced to 125 mg tonight, which is done. remains with improved AH and relatedness. no bizarre content today. 11/12: Continue current regimen and plans 11/13: Continue current plans and regimen. 11/14: much improved from prior to clozapine restart. AH continue, but improved. planning for discharge later this week. Reason for continued inpatient stay Substantial Risk for: inability to function and rapid decompensation Time Spent With Patient Time: Total time managing care of this patient today _25___ minutes.
[2023-11-15 19:22] VITALS: BP 128/64; PULSE 112; RESP 18; TEMP 36.9; O2SAT 95
[2023-11-15] MEDS: cloZAPine 100 MG TABLET PO (22:18)
[2023-11-15] MEDS: cloZAPine 25 MG TABLET PO (22:18)
[2023-11-16 07:47] VITALS: BP 109/58; PULSE 94; RESP 16; TEMP 36.5; O2SAT 97
--- NOTE | 2023-11-16 16:09 | HO.PSYCHPN ---
Subjective Subjective Date of Service: 11/16/23 Reason For Visit: psychosis Interim History: stable presentation. agreeable to DC . per staff, more visible, social eves. thinking about jobs, friends in the past. Mental Status Exam Mental Status Exam Narrative: adequately dressed and groomed. cooperative. Lying on mattress on floor. Normal speech. Moderate eye contact. Appropriate affect overall. mood anxious. no paranoid delusions expressed. no SI/HI/VH expressed. +AH. Diagnostics Vital Signs (24Hr): Vital Signs - 24 hr 11/15/23 19:22 11/16/23 07:47 Temperature 98.4 F 97.7 F Pulse Rate 112 H 94 Respiratory Rate 18 16 Blood Pressure 128/64 109/58 L Pulse Oximetry 95 97 Oxygen Delivery Method Room Air Room Air BMI result Body Mass Index 46.2 Labs 10/18/23 10:15 10/11/23 21:47 Labs: Laboratory Results - last 48 hr 11/15/23 08:05 Absolute Neuts (auto) 4.5 Medications Medications Current Medications Acetaminophen (Acetaminophen 325 Mg Tablet) 650 mg PO Q6H PRN PRN Reason: Headache/Pain Mild Scale (1-3) Last Admin: 11/06/23 02:10 Dose: 650 mg Al Hydroxide/Mg Hydroxide (Magnesium Hydrox/Alum Hydrox 30 Ml Oral.Susp) 30 ml PO Q6H PRN PRN Reason: Heartburn/Nausea Chlorpromazine HCl (Chlorpromazine Hcl 25 Mg Tablet) 50 mg PO Q4H PRN PRN Reason: severe anxiety/agitation Last Admin: 11/09/23 22:11 Dose: 50 mg Clozapine (Clozapine 100 Mg Tablet) 100 mg PO BEDTIME KYLE Last Admin: 11/15/23 22:18 Dose: 100 mg Clozapine (Clozapine 25 Mg Tablet) 25 mg PO BEDTIME KYLE Last Admin: 11/15/23 22:18 Dose: 25 mg Hydroxyzine HCl (Hydroxyzine Hcl 25 Mg Tablet) 25 mg PO Q6H PRN PRN Reason: Anxiety Last Admin: 11/15/23 22:18 Dose: 25 mg Magnesium Hydroxide (Milk Of Magnesia 30 Ml Oral.Susp) 30 ml PO DAILY PRN PRN Reason: Constipation Olanzapine (Olanzapine Odt 10 Mg Tab.Rapdis) 10 mg TRANSLINGU TID PRN PRN Reason: agitation Last Admin: 11/11/23 22:28 Dose: 10 mg Trazodone HCl (Trazodone Hcl 50 Mg Tablet) 50 mg PO BEDTIME MRX1 PRN PRN Reason: Insomnia Last Admin: 11/15/23 00:35 Dose: 50 mg Allergies Allergies Allergy/AdvReac Type Severity Reaction Status Date / Time Penicillins [PENICILLINS] Allergy Unknown RASH Verified 10/11/23 17:29 Assessment & Plan Assessment & Plan (1) Schizophrenia: Status: Acute Code(s): F20.9 - Schizophrenia, unspecified (2) Cannabis use disorder: Status: Acute Code(s): F12.90 - Cannabis use, unspecified, uncomplicated Plan 10/12: retitrate clozapine. 10/13: hold on clozapine, titrate invega to 12 mg daily, then initiate WONG. due to pt's repeated failures in outpt Tx on PO medication, will try WONG. per pt and brother Hx, pt has h/o doing better on WONG. 10/14: continue clozapine 50 mg daily. increase invega to 6 mg QHS. titrate up on invega as tolerated and indicated over w/e. mental status substantially improved from admission. 10/15: Continue current treatment and plan 10/16: Continue current regimen and plans 10/17: increase invega to 9 mg tonight. continue clozaril 50. much improved from admission. 10/18: continue current mgmt. plan to increase invega to 12 after several nights, then start sustenna after several more. much improved from admission. 10/19: improved from admission. continue current mgmt. 10/20: gains maintained. one more night at 9 mg, then to 12 mg invega as of tomorrow night. 10/21: no change in presentation. decrease clozapine to 25 mg and increase paliperidone to 12 mg QHS. 10/22: continue current management and treatment plan. 10/23: continue current management and treatment plan. 10/24: Invega Sustenna per primary team. Otherwise continue current management and treatment plan. 10/25: DC clozapine and PO invega. start sustenna 234 mg tomorrow. stable presentation, no side effects. 10/26: c/o noise in my head last night keeping him up, only slept 4 hours. invega sustenna 234 mg IM today. 10/27: more active in the milieu. bizarre and disorganized. invega sustenna 156 mg scheduled for 11/02. 10/28: schedule thorazine 50 mg at 0900,1300,1700 and thorazine 200 mg QHS for help with ongoing psychosis and insomnia. 10/30/2023: No changes 10/31/2023: No changes 10/31: make daytime thorazine 50 mg doses PRN. continue 200 mg scheduled at HS. invega 156 mg tomorrow. 11/01: received sustenna 156 mg without issue. took no thorazine 50 PRN doses yesterday. sleeping adequately. continues to experience AH. 11/02: labile, disorganized last night. referring to himself in the third person today, very expressive of paranoid delusions. will investigate adding mood stabilizer versus re-titrating clozapine. 11/03: Keeping to self. Observed pacing in his room, presents anxious. Pt reports feeling alright today; referring to himself in the third person. Difficult to follow during conversation; pt stated, people are controlling him so he doesn't step out of place, so he doesn't get killed . Pt reports auditory hallucinations; pt reports the voices are telling me to not talk to anybody . pt denies SI/HI. 11/04: condition continues deteriorated from when on clozaril. restart clozaril at 25 mg QHS. DC thorazine at HS. 11/05: bland presentation today. increase clozapine to 50 mg QHS. 11/06: dark, negativistic, hopeless within his psychosis. increase clozapine to 75 mg tonight. 11/07: verbal outburst at peer rooted in psychotic material/experiences. increase clozapine to 100 mg tonight. 11/08: continue current tx plan. 11/09: more spontaneous, no delusions offered, no longer expressing self in a bizarre way (referring to self in third person). increase clozapine to 125 mg tonight. 11/10: more organized, no bizarre content. no negative s/e. increase clozaril to 150 tonight. 11/11: c/o sudden sialorrhea and dizziness post-clozapine, asks for dosing to be reduced to 125 mg tonight, which is done. remains with improved AH and relatedness. no bizarre content today. 11/12: Continue current regimen and plans 11/13: Continue current plans and regimen. 11/14: much improved from prior to clozapine restart. AH continue, but improved. planning for discharge later this week. 11/15: stable. thinking about work and friends. discharge . Reason for continued inpatient stay Substantial Risk for: inability to function and rapid decompensation Time Spent With Patient Time: Total time managing care of this patient today __25__ minutes.
[2023-11-16 22:29] VITALS: BP 119/61; PULSE 110; RESP 16; TEMP 36.8; O2SAT 96
[2023-11-16] MEDS: cloZAPine 100 MG TABLET PO (22:31)
[2023-11-16] MEDS: cloZAPine 25 MG TABLET PO (22:31)
[2023-11-16] MEDS: hydrOXYzine HCL 25 MG TABLET PO (22:36)
[2023-11-17 07:42] VITALS: BP 106/52; PULSE 97; RESP 16; TEMP 36.6; O2SAT 95
--- NOTE | 2023-11-17 10:30 | P.DS_ITS ---
DS: Providers Provider Date of Service: 11/17/23 Date of admission: 10/12/23 10:44 Primary care physician: Unknown Physician DS: Diagnosis Discharge Diagnosis (1) Schizophrenia: Status: Acute (2) Cannabis use disorder: Status: Acute DS: Medications Discharge Medications Home Medications: Previous Rx's ?Medication ?Instructions ?Recorded clozapine 25 mg tablet 125 mg (5 x 25 mg) PO BEDTIME 30 11/17/23 days #150 tabs Mental Status Exam Mental Status Exam Narrative: adequately dressed and groomed. cooperative. Lying on mattress on floor. Normal speech. Moderate eye contact. Appropriate affect overall. mood good. +paranoid delusions. no SI/HI/AVH. Data Data Completed and Pending Completed studies during hospitalization [Text1]: 11/15/23 08:05 Absolute Neuts (auto) 4.5 DS: Summary Hospital Course Hospital Course: per 10/12 admission note: per [facility] crisis evalo, pt's mother called for an eval and pt was seen in his home. pt's mother reported he has recently been not attending work and exhibiting/experiencing increase paranoid delusions, disorganized thoughts, AVH, RIS, increased social isolation, insomnia, poor ADLs, increased agitation. pt was noted to have pronounced delay in answering questions and appeared to be RIS during the interview. he also displayed some bizarre behaviors. police were on-scene, and pt asked them to shoot him or beat him up. he then told them he had weapons under his bed and began to crawl under his bed to get them. police restrained pt and brought him to EMS. he was BIBA on a section 12. on interview on the unit, pt was generally showing PRM and demonstrated very long MODESTO. he appeared to be attending to internal stimuli, and on two occasions approached MD with a sense of urgency, out of the blue, and said things such as, i am jain, and, i think someone turned me racist. he was generally vague and unable to provide history. he was encouraged to continue with clozaril titration. Past Psychiatric History: h/o schizophrenia hosp: multiple hospitalizations. most recent inpt M3. h/o medication non-compliance. seen at [facility]. [facility] services. no documented h/o SA/SIB/HIB. Medical Evaluation Reviewed: Yes [facility] Medical History (Reviewed 10/11/23 @ 18:30 by JOSE Clemente Schizophrenia Family History: reportedly there is a FH of mental illness and ASHANTI. sister - PTSD mother - bipolar disorder, schizophrenia, PTSD Social History: [place] 13 [place]. one of three kids. sibs spent some time in foster care when he was 4 yo and then reunited a few years later. mother is and remarried. pt lives with his mother single, never , no children. receives [employer] income. HS grad. He does work at [employer] Substance History: reports heavy cannabis use, daily. utox POS. also h/o intermittent alcohol use. Trauma History: alluded to childhood H/O trauma, has not specified, possibly while in foster care. Precis: 10/12: retitrate clozapine. 10/13: hold on clozapine, titrate invega to 12 mg daily, then initiate WONG. due to pt's repeated failures in outpt Tx on PO medication, will try WONG. per pt and brother Hx, pt has h/o doing better on WONG. 10/14: continue clozapine 50 mg daily. increase invega to 6 mg QHS. titrate up on invega as tolerated and indicated over w/e. mental status substantially improved from admission. 10/17: increase invega to 9 mg tonight. continue clozaril 50. much improved from admission. 10/18: continue current mgmt. plan to increase invega to 12 after several nights, then start sustenna after several more. much improved from admission. 10/20: gains maintained. one more night at 9 mg, then to 12 mg invega as of tomorrow night. 10/21: no change in presentation. decrease clozapine to 25 mg and increase paliperidone to 12 mg QHS. 10/25: DC clozapine and PO invega. start sustenna 234 mg tomorrow. stable presentation, no side effects. 10/26: c/o noise in my head last night keeping him up, only slept 4 hours. invega sustenna 234 mg IM today. 10/27: more active in the milieu. bizarre and disorganized. invega sustenna 156 mg scheduled for 11/02. 10/28: schedule thorazine 50 mg at 0900,1300,1700 and thorazine 200 mg QHS for help with ongoing psychosis and insomnia. 10/31: make daytime thorazine 50 mg doses PRN. continue 200 mg scheduled at HS. invega 156 mg tomorrow. 11/01: received sustenna 156 mg without issue. took no thorazine 50 PRN doses yesterday. sleeping adequately. continues to experience AH. 11/02: labile, disorganized last night. referring to himself in the third person today, very expressive of paranoid delusions. will investigate adding mood stabilizer versus re-titrating clozapine. 11/03: Keeping to self. Observed pacing in his room, presents anxious. Pt reports feeling alright today; referring to himself in the third person. Difficult to follow during conversation; pt stated, people are controlling him so he doesn't step out of place, so he doesn't get killed . Pt reports auditory hallucinations; pt reports the voices are telling me to not talk to anybody . pt denies SI/HI. 11/04: condition continues deteriorated from when on clozaril. restart clozaril at 25 mg QHS. DC thorazine at HS. 11/05: bland presentation today. increase clozapine to 50 mg QHS. 11/06: dark, negativistic, hopeless within his psychosis. increase clozapine to 75 mg tonight. 11/07: verbal outburst at peer rooted in psychotic material/experiences. increase clozapine to 100 mg tonight. 11/09: more spontaneous, no delusions offered, no longer expressing self in a bizarre way (referring to self in third person). increase clozapine to 125 mg tonight. 11/10: more organized, no bizarre content. no negative s/e. increase clozaril to 150 tonight. 11/11: c/o sudden sialorrhea and dizziness post-clozapine, asks for dosing to be reduced to 125 mg tonight, which is done. remains with improved AH and relatedness. no bizarre content today. 11/14: much improved from prior to clozapine restart. AH continue, but improved. planning for discharge later this week. 11/15: stable. thinking about work and friends. discharge . 11/16: gains maintained, more social, spending more time in milieu in eves, did puzzle with peers last night. meds reviewed, reconciled, prescribed. planning for discharge tomorrow. 11/17: no change in presentation. discharged as per plan. Time Spent with Patient Time attestation: Total time managing care of this patient today __35__ minutes. Discharge Plan Discharge Anticipated Discharge Date/Time: 11/18/23 11:00 Patient Disposition: Home, Self-Care Discharge Diagnosis: Schizophrenia Cannabis Use Disorder Referrals: Pascale Abreu (Therapy) [Other] - 11/29/23 10:00 am (IN OFFICE APPOINTMENT) Dr. Darwin Madsen (Psychiatry) [Other] - 12/14/23 9:20 am (IN OFFICE A PPOINTMENT) Oneil Morton MD [Physician] - 11/18/23 9:49 am (PCP will contact patient with follow-up appt.) Discharge Medications: Continued clozapine 25 mg tablet 125 mg PO BEDTIME 30 Days Qty: 150 0RF Discharge Orders: Discharge Order (Routine); Ordered 11/18/23 Ordered By: Jr Hernandez Diet: Advance to usual diet Activity on Discharge: As tolerated Stand Alone Forms: Patient Portal Discharge page, Community Support Print Language: Somali Care Plan Goals: remain safe and stable in the outpatient treatment setting Health Concerns: obesity Plan of Treatment: take medications as prescribed, attend appointments as scheduled Assessment: not at imminent risk of harm to self or others Discharge Date/Time: 11/18/23 10:55
[2023-11-17 20:00] VITALS: BP 121/63; PULSE 126; RESP 16; TEMP 36.6; O2SAT 98
[2023-11-17] MEDS: cloZAPine 25 MG TABLET PO (21:06)
[2023-11-17] MEDS: cloZAPine 100 MG TABLET PO (21:06)
[2023-11-17] MEDS: hydrOXYzine HCL 25 MG TABLET PO (21:06)
[2023-11-17] MEDS: traZODone HCL 50 MG TABLET PO (21:06)
[2023-11-18 07:55] VITALS: BP 105/56; PULSE 94; RESP 14; TEMP 37.2; O2SAT 94
== END 2023-11-18 10:55 | disposition home or self-care (01) | DRG 885 ==
LOC: HO.ED 10-12 08:04 → HO.PADLT16 10-12 11:57
PROVIDERS: Nurse Practitioner Family; Admitting Provider Psychiatry & Neurology Psychiatry; Emergency Provider Student in an Organized Health Care Education/Training Program; Visit Provider Psychiatry & Neurology Psychiatry
DX: F20.9 Schizophrenia, unspecified (principal); F12.90 Cannabis use, unspecified, uncomplicated; Z79.899 Other long term (current) drug therapy
CPT/HCPCS: 36415; 80053; 80159; 80307; 81001; 85025; 85048; 99285; J2426

== ENCOUNTER → 2023-10-12 10:44 | Outpatient (BNV) | payer MEDICARE, MEDICAID, SELFPAY | PROVIDERS: Admitting Provider Psychiatry & Neurology Psychiatry; Emergency Provider Student in an Organized Health Care Education/Training Program; Visit Provider Psychiatry & Neurology Psychiatry | DX: F20.0 Paranoid schizophrenia (principal); F12.90 Cannabis use, unspecified, uncomplicated | CPT/HCPCS: 90792; 99231; 99232; 99239 ==

== ENCOUNTER 2023-12-03 15:46 | Inpatient (IN) | payer OTHER, SELFPAY ==
[2023-12-03 15:57] VITALS: BP 130/86; PULSE 93; O2SAT 95
[2023-12-03 16:01] VITALS: BP 135/68; PULSE 77; RESP 18; TEMP 36.7; O2SAT 96; BMI 44.3
[2023-12-03 16:05] VITALS: BP 135/68; PULSE 77; RESP 18; TEMP 36.7; O2SAT 96
--- NOTE | 2023-12-03 16:07 | PC.NURSE ---
PT MIKO voluntarily from home due to increasing AH and VH of crabs, family members and an unseen other named Soma . The patient denies SI and HI. Per report the patient has a Hx of schizoaffective disorder. The patient has also been medication non-compliant anywhere from 3 days to 2 weeks. The patient endorses drinking for the last 3 days to include 2 beers today and smoking 1 joint. Patient is calm and cooperative with staff but is preoccupied by internal stimuli.
[2023-12-03 16:13] LABS: Appearance Urine Clear; Color Urine Yellow; Glucose Urine UA Negative (Negative); Leukocyte Esterase Urine Negative (Negative); Nitrite Urine Negative (Negative); Urine Blood Negative (Negative); Urine Ketones Negative (Negative); Urine Protein Negative (Neg-Trace)
[2023-12-03 16:22] LABS: Amphetamine Screen Urine Not Detected (Not Detect); Barbiturates, Urine Not Detected (Not Detect); Benzodiazepines Screen Urine Not Detected (Not Detect); Buprenorphine Scr Not Detected (Not Detect); Cannabinoid Screen Urine POSITIVE (Not Detect); Cocaine Screen Urine Not Detected (Not Detect); Fentanyl, urine Not Detected (Not Detect); Methadone Screen, Urine Not Detected (Not Detect); Opiate Screen Urine Not Detected (Not Detect); Oxycodone Screen Urine Not Detected (Not Detect); Phencyclidine Screen Urine Not Detected (Not Detect)
[2023-12-03 16:43] LABS: MANUAL DIFF FLAG NO
[2023-12-03 16:46] LABS: Basophils Percent Auto 0.2 % (0-2); Eosinophils Absolute Auto 0.2 X10*3/uL (0.0-0.4); Eosinophils Percent Auto 2.4 % (0-4); Hematocrit 41.2 % (42.0-52.0); Hemoglobin 13.9 g/dl (14.0-18.0); Imm Gran Abs Auto 0.03 X10*3/uL (0.00-0.03); Imm Gran Pct Auto 0.4 % (0.0-0.4); Lymphocytes Absolute Auto 2.3 X10*3/uL (1.2-4.9); Mean Corpuscular HGB Conc 33.7 g/dl (31.0-36.0); Mean Corpuscular Hemoglobin 30.2 pg (27.0-33.0); Mean Corpuscular Volume 89.4 fL (80.0-98.0); Mean Platelet Volume 9.4 fL (9.4-12.4); Monocytes Absolute Auto 0.6 X10*3/uL (0.1-1.2); Monocytes Percent Auto 7.1 % (2-11); Neutrophils Absolute Auto 5.3 x10*3/uL (2.0-8.3); Neutrophils Percent Auto 62.9 % (45-73); Platelet Count 290 X10*3/uL (160-400); Red Blood Count 4.61 X10*6/uL (4.60-5.80); Red Cell Distribution Width 13.2 % (11.0-16.0); White Blood Count 8.4 X10*3/uL (4.8-10.8)
[2023-12-03 17:03] LABS: Alanine Aminotransferase 76 U/L (0-40); Albumin Level 4.6 g/dL (3.5-5.0); Alkaline Phosphatase 59 U/L (39-117); Anion Gap 13 (12-20); Aspartate Amino Transferase 34 U/L (5-37); Bilirubin Total 0.4 mg/dL (0.0-1.0); Blood Urea Nitrogen 16 mg/dL (9-16); Calcium 10.2 mg/dL (8.4-10.2); Carbon Dioxide 26 mmol/L (22-29); Chloride 106 mmol/L (96-108); Creatinine Clr Calc Pharmacy 153.9; Estimated Glomerular Filt Rate > 60; Ethanol < 10 mg/dL; Glucose Random 94 mg/dL (60-115); Sodium 141 mmol/L (135-145); Total Protein 8.2 g/dL (6.5-8.0)
--- NOTE | 2023-12-03 17:06 | MHC.CARE ---
Spoke with Gina Quick ([phone]) of [facility]. She reports pt was seen by [facility] today, appeared to be disorganized. [facility] crisis was called and they recommended pt be transported to [facility] for medical clearance before being assessed. Pt lives with mother who has been in [place] for the past week. It is suspected pt is not medication compliant. Pt has [facility] case management services Lazaro Dowell- piano case and bench assembler. Psychiatrist- Dr. Holliday with [facility]. Pt has therapy intake appointment scheduled for next week.
--- NOTE | 2023-12-03 17:10 | ED.PSYCH ---
HPI - Psych General Chief Complaint: Psychiatric Symptoms Stated Complaint: Audio/visual disturbances, non med compliant x3 da Time Seen by Provider: 12/03/23 16:58 Source: patient and EMS Mode of arrival: EMS Limitations: no limitations History of Present Illness ED Provider: DR. Altman HPI Narrative: 28-year-old male with history of schizophrenia and cannabis use disorder patient had history of mental health hospitalization in the past patient takes close the pain to control his psych symptoms patient has not been taking his medication for the past week at list, mother reported for psych symptoms and increased visual and auditory hallucination at home patient is here today for this evaluation, patient himself declined SI or HI. Related Data Previous Rx's ?Medication ?Instructions ?Recorded clozapine 25 mg tablet 125 mg (5 x 25 mg) PO BEDTIME 30 11/17/23 days #150 tabs Allergies Allergy/AdvReac Type Severity Reaction Status Date / Time Penicillins [PENICILLINS] Allergy Unknown RASH Verified 12/03/23 16:02 Review of Systems Review of Systems: All other systems are reviewed and are negative Constitutional: Reports as per HPI and Reports no additional constitutional complaints Eyes: Reports as per HPI and Reports no additional eye complaints Reports system reviewed and no additional complaints, except as documented Cardiovascular: Reports as per HPI and Reports no additional cardiovascular complaints Respiratory: Reports as per HPI and Reports no additional respiratory complaints Gastrointestinal: Reports as per HPI and Reports no additional gastrointestinal complaints Genitourinary: Reports no additional female genitourinary complaints Musculoskeletal: Reports no additional musculoskeletal complaints Skin/Breast: Reports system reviewed and no additional complaints, except as docu Psychiatric: Reports no additional psychiatric complaints Endocrine: Reports no additional endocrine complaints Hematologic/Lymphatic: Reports no additional hematologic/lymphatic complaints Allergic/Immunologic: Reports no additional allergic/immunologic complaints Reports system reviewed and no additional complaints, except as documented and Reports Abnormal speech present [facility] Past Medical History Medical History Schizophrenia Social History Social History Household Members: Family Housing: Apartment Do you presently have visiting nurse or other home services: No Unable to assess alcohol history related to: Refusing to respond Alcohol intake: unknown Comment: patient on 5 minute checks for safety unrelated to fall assessment. Patient Tobacco Use Status: Never used Tobacco Smoked in Last 30 Days: Yes e-Cigarette/Vaping Use: Never Used Second Hand Smoke Exposure: No Use of substances other than those prescribed or required for medical reasons: Yes Substance Use Type: Marijuana Advance Directives: No Advance Directives Information Provided: Yes Do you have a plan to hurt others: No Plan service: No Sexual orientation: Straight/Heterosexual Physical Exam Vital Signs: Vital Signs: Last Vital Signs Temp 98.0 F 12/03/23 16:05 Pulse 77 12/03/23 16:05 Resp 18 12/03/23 16:05 BP 135/68 12/03/23 16:05 Pulse Ox 96 12/03/23 16:05 O2 Del Method Room Air 12/03/23 16:05 BMI result Body Mass Index 44.3 Vital signs have been reviewed and appear to be correct. Blood pressure elevated. Heart rate normal. Respiratory rate normal. Temperature normal. Oxygen saturation normal. Appearance: Alert. Oriented X3. No acute distress. Head: Normal external exam. Normocephalic. Atraumatic. No Ibrahim signs noted. No raccoon eyes noted Eyes: PERRLA. EOMI. Conjunctiva and sclera normal. Eyelids normal. ENT: TM's Normal. Pharynx normal. Uvula midline. Moist mucous membranes. No trismus noted. No drooling noted. No muffled voice noted. Neck: Normal inspection. Neck supple. FROM. No adenopathy. Thyroid Normal. No meningeal signs. No neck mass noted. CVS: Normal heart rate and rhythm. Heart sound normal. No murmurs noted. Pulses normal throughout. Respiratory: No respiratory distress. Painless inspiration. Breath sounds normal. No wheezes/rales/rhonchi noted. Chest nontender. No accessory muscle usage noted or decreased air movement noted. Abdomen: Soft and nontender. Bowel sounds normal in all 4 quadrants. No distention noted. No organomegaly noted. No visible injury noted. Back: No CVA tenderness. Full range of motion noted. Skin: Skin warm and dry. Normal skin color. Normal skin turgor. No rashes/lesions/lacerations noted. Extremities: No lower extremity edema. Extremities exhibit normal range of motion. Extremities nontender. Neuro: Oriented X 3. Cranial nerve exam: II-XII are grossly intact No motor deficit. No sensory deficit. Reflexes normal. Patient Orientation: Person, Place, Time and Situation, okay hygiene and grooming. Fair eye contact, attentive, no tics or tremors. Level of Consciousness: Awake, Appropriate and Alert Patient Behavior: Appropriate, Guarded, Cooperative and Anxious Mood Description: Constricted, Blunted and Apprehensive Affect Description: Constricted, Blunted and Apprehensive Patient Cognition Impaired: No Ability to Follow Directions: Excellent Speech Pattern: Clear, Appropriate and Spontaneous Speech, nonpressured, spontaneous with regular rate and rhythm, normal volume and prosody. No dysarthria. Memory Description: Intact, Immediate Intact and Short Term Intact Hallucinations: None Delusions: Not Present Thought Process: Intact Thought Content: positive for Intact, positive for Logical, denies Suicidal Ideation and denies Homicidal Ideation. Depressive Symptoms: Not present. Judgement and Insight: Limited but adequate. Course Reevaluation(s) Reevaluation #1: Will start the patient on physician observation, medical clearance, care team evaluation and disposition. Time: 17:13 Reevaluation #2: Patient has been evaluated by care team, needs inpatient level of care, patient will be admitted to [facility], section 12 B was signed in the ED. Discontinue physician observation. Time: 22:06 Medical Decision Making Differential Diagnosis Differential Diagnoses: The differential diagnosis associated with the presentation includes (Medical clearance, acute psychosis, SI, HI, care team evaluation, substance abuse.) Admission/Observation Consideration of admission/observation: Escalation of care including admission/observation considered Lab Data MDM Lab Attestation statement: I reviewed the patient's lab results. 12/03/23 16:37 12/03/23 16:37 Labs: Lab Results 12/03/23 12/03/23 12/03/23 Range/Units 16:02 16:03 16:37 WBC 8.4 (4.8-10.8) X10*3/uL RBC 4.61 (4.60-5.80) X10*6/uL Hgb 13.9 L (14.0-18.0) g/dl Hct 41.2 L (42.0-52.0) % MCV 89.4 (80.0-98.0) fL MCH 30.2 (27.0-33.0) pg MCHC 33.7 (31.0-36.0) g/dl RDW 13.2 (11.0-16.0) % Plt Count 290 (160-400) X10*3/uL MPV 9.4 (9.4-12.4) fL Immature Gran % (Auto) 0.4 (0.0-0.4) % Neut % (Auto) 62.9 (45-73) % Lymph % (Auto) 27.0 (20-40) % [place] % (Auto) 7.1 (2-11) % Eos % (Auto) 2.4 (0-4) % Baso % (Auto) 0.2 (0-2) % Lymph # (Auto) 2.3 (1.2-4.9) X10*3/uL [place] # (Auto) 0.6 (0.1-1.2) X10*3/uL Eos # (Auto) 0.2 (0.0-0.4) X10*3/uL Baso # (Auto) 0.0 (0.0-0.2) X10*3/uL Abs Immat Gran (auto) 0.03 (0.00-0.03) X10*3/uL Absolute Neuts (auto) 5.3 (2.0-8.3) x10*3/uL Absolute Nucleated RBC 0.000 (0.0-0.012) X10*3/uL Nucleated RBC % (auto) 0.0 (0.0-0.2) /100WBC Sodium 141 (135-145) mmol/L Potassium 4.0 (3.3-5.1) mmol/L Chloride 106 (96-108) mmol/L Carbon Dioxide 26 (22-29) mmol/L Anion Gap 13 (12-20) BUN 16 (9-16) mg/dL Creatinine 0.97 (0.5-1.4) mg/dL Estim Creat Clear Calc 153.9 Estimated GFR > 60 Random Glucose 94 (60-115) mg/dL Calcium 10.2 (8.4-10.2) mg/dL Total Bilirubin 0.4 (0.0-1.0) mg/dL AST 34 (5-37) U/L ALT 76 H (0-40) U/L Alkaline Phosphatase 59 (39-117) U/L Total Protein 8.2 H (6.5-8.0) g/dL Albumin 4.6 (3.5-5.0) g/dL Urine Color Yellow Urine Appearance Clear Urine pH 7.0 (5.0-9.0) Ur Specific [place] 1.020 (1.005-1.025) Urine Protein Negative (Neg-Trace) mg/dL Urine Glucose (UA) Negative (Negative) mg/dL Urine Ketones Negative (Negative) mg/dL Urine Blood Negative (Negative) Urine Nitrite Negative (Negative) Ur Leukocyte Esterase Negative (Negative) Urine Opiates Screen Not Detected (Not Detect) Ur Buprenorphine Scrn Not Detected (Not Detect) ng/mL Ur Oxycodone Screen Not Detected (Not Detect) ng/mL Urine Methadone Screen Not Detected (Not Detect) ng/mL Urine Fentanyl Screen Not Detected (Not Detect) Ur Barbiturates Screen Not Detected (Not Detect) Ur Phencyclidine Scrn Not Detected (Not Detect) Ur Amphetamines Screen Not Detected (Not Detect) U Benzodiazepines Scrn Not Detected (Not Detect) Urine Cocaine Screen Not Detected (Not Detect) U Marijuana (THC) Screen POSITIVE H (Not Detect) Ethyl Alcohol < 10 mg/dL Chronic Conditions Patient?s care impacted by: Other (Schizophrenia) Discharge Plan Discharge Clinical Impression: Schizophrenia, Acute psychosis Patient Disposition: Admitted As Inpatient
--- NOTE | 2023-12-03 18:33 | MHC.CARE ---
[employer] called and left riley Fuentes at [facility] to obtain patient's mother's contact information; number we have is a non-working number.
--- NOTE | 2023-12-03 19:08 | PC.NURSE ---
patient appears to remain at rest at present respirations are even and unlabored patient appears in no distress.
--- NOTE | 2023-12-04 | ECG_ITS ---
Test Reason : CHECK FOR PROLONGED QTC Blood Pressure : / mmHG Vent. Rate : 081 BPM Atrial Rate : 081 BPM P-R Int : 158 ms QRS Dur : 104 ms QT Int : 364 ms P-R-T Axes : 037 040 023 degrees QTc Int : 422 ms Normal sinus rhythm Normal ECG When compared with ECG of 19-JUL-2023 22:42, No significant change was found Referred By: Generic ED Physician Electronically Signed By:DAMION THOMSON
[2023-12-04] MEDS: OLANZapine ODT 10 MG TAB.RAPDIS TRANSLINGU (04:00)
--- NOTE | 2023-12-04 05:28 | PC.NURSE ---
late entry: patient had been somewhat suspicious and paranoid prior to 0200 tonight, thereafter this time patient seemed more stimulated and suspicious some foul language and periodic mention of persons being rapists, etc etc. patient was mediucated around 0347 with 10mg zydis, some mild effect, allowed patient to sit and around 445 lay down but the client only remained laying down for about 10 minutes. patient did self dialogue about 50-70 percent of the time thereafter.
--- NOTE | 2023-12-04 07:28 | PC.NURSE ---
Assumed care of patient at 0645. No signs of distress, breathing is even and unlabored. Patient is observed resting quietly in their bed.
[2023-12-04 08:00] VITALS: BP 110/63; PULSE 83; TEMP 36.5; O2SAT 97
--- NOTE | 2023-12-04 11:19 | PC.NURSE ---
Julio is admitted to [facility] from the POD where he was BIBA after reporting AH in the context of medication non compliance in the community. Julio reports he has been off of his clozapine somewhere between 3 days and 2 weeks . Julio was agreeable to the admission and allowed us to do his skin assessment (WNL) and check his VS. Julio is currently denying SI/HI but does endorse AH and was having VH before coming to the hospital. Julio is well known to this unit and declined a tour requesting a hot breakfast and his room to be allowed to rest.
--- NOTE | 2023-12-04 13:56 | HO.PSYADMNOT ---
HPI Date of Service: 12/04/23 Chief Complaint: psychosis HPI Subjective Notes: Singh Warning Narrative: pt left [facility] 11/17 on clozapine. in the past week he reportedly has not been compliant with medication and has deteriorated. in ED he was apparently discussing himself in the third person and disorganized. on interview on unit he is delusional, pointing to his heart and saying, somebody keeps opening him up. he states he took medications a couple of times after leaving the hospital last time. Past Psychiatric History: h/o schizophrenia hosp: multiple hospitalizations. most recent inpt [facility]. h/o medication non-compliance. seen at [facility]. [facility] services. no documented h/o SA/SIB/HIB. Medical Evaluation Reviewed: [facility] Medical History Schizophrenia Family History: reportedly there is a FH of mental illness and ASHANTI. sister - PTSD mother - bipolar disorder, schizophrenia, PTSD Social History: born in [place] and moved to at 13 yo. one of three kids. sibs spent some time in foster care when he was 4 yo and then reunited a few years later. mother is and remarried. pt lives with his mother single, never , no children. receives [employer] income. HS grad. He does work at [employer] Substance History: cannabis - utox POS Trauma History: alluded to childhood H/O trauma, has not specified, possibly while in foster care. Diagnostics Vital Signs (24Hr): Vital Signs - 24 hr 12/03/23 16:01 12/03/23 16:05 12/04/23 08:00 Temperature 98.0 F 98.0 F 97.7 F Pulse Rate 77 77 83 Respiratory Rate 18 18 Blood Pressure 135/68 135/68 110/63 Pulse Oximetry 96 96 97 Oxygen Delivery Method Room Air Room Air Room Air BMI result Body Mass Index 44.3 Labs 12/03/23 16:37 12/03/23 16:37 Labs: Laboratory Results - last 48 hr 12/03/23 12/03/23 12/03/23 16:02 16:03 16:37 WBC 8.4 RBC 4.61 Hgb 13.9 L Hct 41.2 L MCV 89.4 MCH 30.2 MCHC 33.7 RDW 13.2 Plt Count 290 MPV 9.4 Immature Gran % (Auto) 0.4 Neut % (Auto) 62.9 Lymph % (Auto) 27.0 [place] % (Auto) 7.1 Eos % (Auto) 2.4 Baso % (Auto) 0.2 Lymph # (Auto) 2.3 [place] # (Auto) 0.6 Eos # (Auto) 0.2 Baso # (Auto) 0.0 Abs Immat Gran (auto) 0.03 Absolute Neuts (auto) 5.3 Absolute Nucleated RBC 0.000 Nucleated RBC % (auto) 0.0 Sodium 141 Potassium 4.0 Chloride 106 Carbon Dioxide 26 Anion Gap 13 BUN 16 Creatinine 0.97 Estim Creat Clear Calc 153.9 Estimated GFR > 60 Random Glucose 94 Calcium 10.2 Total Bilirubin 0.4 AST 34 ALT 76 H Alkaline Phosphatase 59 Total Protein 8.2 H Albumin 4.6 Urine Color Yellow Urine Appearance Clear Urine pH 7.0 Ur Specific [place] 1.020 Urine Protein Negative Urine Glucose (UA) Negative Urine Ketones Negative Urine Blood Negative Urine Nitrite Negative Ur Leukocyte Esterase Negative Urine Opiates Screen Not Detected Ur Buprenorphine Scrn Not Detected Ur Oxycodone Screen Not Detected Urine Methadone Screen Not Detected Urine Fentanyl Screen Not Detected Ur Barbiturates Screen Not Detected Ur Phencyclidine Scrn Not Detected Ur Amphetamines Screen Not Detected U Benzodiazepines Scrn Not Detected Urine Cocaine Screen Not Detected U Marijuana (THC) Screen POSITIVE H Ethyl Alcohol < 10 Meds/Allergies Allergies Allergies Allergy/AdvReac Type Severity Reaction Status Date / Time Penicillins [PENICILLINS] Allergy Unknown RASH Verified 12/03/23 16:02 Mental Status Exam Mental Status Exam Narrative: adequately dressed and groomed. cooperative. Lying on mattress on floor. Normal speech. Moderate eye contact. Appropriate affect overall. mood OK. +paranoid delusions. no SI/HI/AVH. Assessment & Plan Assessment & Plan (1) Schizophrenia: Status: Acute Code(s): F20.9 - Schizophrenia, unspecified (2) Cannabis use disorder: Status: Acute Code(s): F12.90 - Cannabis use, unspecified, uncomplicated Plan re-titrate clozapine. consider referral to [facility]. Patient educated on: diagnosis and medication risk/benefits Reason for continued inpatient stay Substantial Risk for: harm to self, inability to function and rapid decompensation Statement Statement: I have reviewed the history and physical and performed a pertinent examination on my patient. No changes have occurred unless specified. If the History and Physical was not performed prior to admission, the Hospitalist's service will be consulted for completing the admission physical. Time Spent With Patient Time: Total time managing care of this patient today __55__ minutes.
[2023-12-04 20:37] VITALS: BP 131/80; PULSE 94; RESP 16; TEMP 36.4; O2SAT 96
[2023-12-04] MEDS: cloZAPine 25 MG TABLET PO (21:48)
[2023-12-04] MEDS: traZODone HCL 50 MG TABLET PO (21:48)
[2023-12-05 07:34] VITALS: BP 111/58; PULSE 83; RESP 16; TEMP 36.7; O2SAT 96
--- NOTE | 2023-12-05 16:57 | HO.PSYCHPN ---
Subjective Subjective Date of Service: 12/05/23 Reason For Visit: psychosis Interim History: no issues. slept well. supereficial. per staff, taking meds. cooperative, pleasant. slept 8 hours. Mental Status Exam Mental Status Exam Narrative: adequately dressed and groomed. cooperative. Lying on mattress on floor. Normal speech. Moderate eye contact. Appropriate affect overall. mood OK. +paranoid delusions. no SI/HI/AVH. Diagnostics Vital Signs (24Hr): Vital Signs - 24 hr 12/04/23 20:37 12/05/23 07:34 Temperature 97.6 F 98.1 F Pulse Rate 94 83 Respiratory Rate 16 16 Blood Pressure 131/80 111/58 L Pulse Oximetry 96 96 Oxygen Delivery Method Room Air Room Air BMI result Body Mass Index 44.3 Labs 12/03/23 16:37 12/03/23 16:37 Labs: Laboratory Results - last 48 hr 12/03/23 16:37 Sodium 141 Potassium 4.0 Chloride 106 Carbon Dioxide 26 Anion Gap 13 BUN 16 Creatinine 0.97 Estim Creat Clear Calc 153.9 Estimated GFR > 60 Random Glucose 94 Calcium 10.2 Total Bilirubin 0.4 AST 34 ALT 76 H Alkaline Phosphatase 59 Total Protein 8.2 H Albumin 4.6 Ethyl Alcohol < 10 Medications Medications Current Medications Acetaminophen (Acetaminophen 325 Mg Tablet) 650 mg PO Q6H PRN PRN Reason: Headache/Pain Mild Scale (1-3) Al Hydroxide/Mg Hydroxide (Magnesium Hydrox/Alum Hydrox 30 Ml Oral.Susp) 30 ml PO Q6H PRN PRN Reason: Heartburn/Nausea Clozapine (Clozapine 25 Mg Tablet) 50 mg PO BEDTIME KYLE Hydroxyzine HCl (Hydroxyzine Hcl 25 Mg Tablet) 25 mg PO Q6H PRN PRN Reason: Anxiety Magnesium Hydroxide (Milk Of Magnesia 30 Ml Oral.Susp) 30 ml PO DAILY PRN PRN Reason: Constipation Trazodone HCl (Trazodone Hcl 50 Mg Tablet) 50 mg PO BEDTIME MRX1 PRN PRN Reason: Insomnia Last Admin: 12/04/23 21:48 Dose: 50 mg Allergies Allergies Allergy/AdvReac Type Severity Reaction Status Date / Time Penicillins [PENICILLINS] Allergy Unknown RASH Verified 12/03/23 16:02 Assessment & Plan Assessment & Plan (1) Schizophrenia: Status: Acute Code(s): F20.9 - Schizophrenia, unspecified (2) Cannabis use disorder: Status: Acute Code(s): F12.90 - Cannabis use, unspecified, uncomplicated Plan 12/03: re-titrate clozapine. [facility]. 12/04: increase clozapine to 50 mg tonight. Reason for continued inpatient stay Substantial Risk for: inability to function Time Spent With Patient Time: Total time managing care of this patient today ____ minutes.
[2023-12-05 19:30] VITALS: BP 122/67; PULSE 89; RESP 18; TEMP 36.8; O2SAT 98
[2023-12-05] MEDS: cloZAPine 25 MG TABLET 50 MG PO (21:28)
[2023-12-05] MEDS: traZODone HCL 50 MG TABLET PO (23:33)
[2023-12-06 08:05] VITALS: BP 96/51; PULSE 85; RESP 14; TEMP 36.4; O2SAT 96
--- NOTE | 2023-12-06 15:19 | HO.PSYCHPN ---
Subjective Subjective Date of Service: 12/06/23 Reason For Visit: psychosis Interim History: no change in presentation. no complaints or requests. per staff, variable affect. no safety issues. flat, pacing. taking meds. slept about 6 hours. Mental Status Exam Mental Status Exam Narrative: adequately dressed and groomed. cooperative. Lying on mattress on floor. Normal speech. Moderate eye contact. Appropriate affect overall. mood OK. no SI/HI/AVH expressed. Diagnostics Vital Signs (24Hr): Vital Signs - 24 hr 12/05/23 19:30 12/06/23 08:05 Temperature 98.2 F 97.5 F Pulse Rate 89 85 Respiratory Rate 18 14 Blood Pressure 122/67 96/51 L Pulse Oximetry 98 96 Oxygen Delivery Method Room Air Room Air BMI result Body Mass Index 44.3 Labs 12/03/23 16:37 12/03/23 16:37 Medications Medications Current Medications Acetaminophen (Acetaminophen 325 Mg Tablet) 650 mg PO Q6H PRN PRN Reason: Headache/Pain Mild Scale (1-3) Al Hydroxide/Mg Hydroxide (Magnesium Hydrox/Alum Hydrox 30 Ml Oral.Susp) 30 ml PO Q6H PRN PRN Reason: Heartburn/Nausea Clozapine (Clozapine 25 Mg Tablet) 75 mg PO BEDTIME KYLE Hydroxyzine HCl (Hydroxyzine Hcl 25 Mg Tablet) 25 mg PO Q6H PRN PRN Reason: Anxiety Magnesium Hydroxide (Milk Of Magnesia 30 Ml Oral.Susp) 30 ml PO DAILY PRN PRN Reason: Constipation Trazodone HCl (Trazodone Hcl 50 Mg Tablet) 50 mg PO BEDTIME MRX1 PRN PRN Reason: Insomnia Last Admin: 12/05/23 23:33 Dose: 50 mg Allergies Allergies Allergy/AdvReac Type Severity Reaction Status Date / Time Penicillins [PENICILLINS] Allergy Unknown RASH Verified 12/03/23 16:02 Assessment & Plan Assessment & Plan (1) Schizophrenia: Status: Acute Code(s): F20.9 - Schizophrenia, unspecified (2) Cannabis use disorder: Status: Acute Code(s): F12.90 - Cannabis use, unspecified, uncomplicated Plan 12/03: re-titrate clozapine. consider referral to [facility]. 12/04: increase clozapine to 50 mg tonight. 12/05: increase clozapine to 75. H resp[facility] --> [facility], versus [facility]. Reason for continued inpatient stay Substantial Risk for: inability to function and rapid decompensation Time Spent With Patient Time: Total time managing care of this patient today __25__ minutes.
[2023-12-06 20:00] VITALS: BP 133/69; PULSE 100; RESP 16; TEMP 36.6; O2SAT 97
[2023-12-06] MEDS: cloZAPine 25 MG TABLET 75 MG PO (21:12)
[2023-12-06] MEDS: traZODone HCL 50 MG TABLET PO (21:12)
[2023-12-07 07:55] VITALS: BP 108/61; PULSE 76; RESP 14; TEMP 36.9; O2SAT 95
[2023-12-07 11:09] LABS: Clozapine (Clozaril) <10 mcg/L; Norclozapine <10 mcg/L (25-400)
--- NOTE | 2023-12-07 15:51 | HO.PSYCHPN ---
Subjective Subjective Date of Service: 12/07/23 Reason For Visit: psychosis Interim History: no change in presentation. denies problems or side effects. per staff, flat, withdrawn. no dep/anx. labile and agitated eves. c/o ppl spitting in his food at [employer]. slept well. Mental Status Exam Mental Status Exam Narrative: adequately dressed and groomed. cooperative. Lying on mattress on floor. Normal speech. Moderate eye contact. Appropriate affect overall. mood OK. no SI/HI/AVH expressed. Diagnostics Vital Signs (24Hr): Vital Signs - 24 hr 12/06/23 20:00 12/07/23 07:55 Temperature 98 F 98.4 F Pulse Rate 100 76 Respiratory Rate 16 14 Blood Pressure 133/69 108/61 Pulse Oximetry 97 95 Oxygen Delivery Method Room Air Room Air BMI result Body Mass Index 44.3 Labs 12/03/23 16:37 12/03/23 16:37 Labs: Laboratory Results - last 48 hr 12/03/23 19:40 Clozapine <10 L Norclozapine <10 L Medications Medications Current Medications Acetaminophen (Acetaminophen 325 Mg Tablet) 650 mg PO Q6H PRN PRN Reason: Headache/Pain Mild Scale (1-3) Al Hydroxide/Mg Hydroxide (Magnesium Hydrox/Alum Hydrox 30 Ml Oral.Susp) 30 ml PO Q6H PRN PRN Reason: Heartburn/Nausea Clozapine (Clozapine 100 Mg Tablet) 100 mg PO BEDTIME KYLE Hydroxyzine HCl (Hydroxyzine Hcl 25 Mg Tablet) 25 mg PO Q6H PRN PRN Reason: Anxiety Magnesium Hydroxide (Milk Of Magnesia 30 Ml Oral.Susp) 30 ml PO DAILY PRN PRN Reason: Constipation Trazodone HCl (Trazodone Hcl 50 Mg Tablet) 50 mg PO BEDTIME MRX1 PRN PRN Reason: Insomnia Last Admin: 12/06/23 21:12 Dose: 50 mg Allergies Allergies Allergy/AdvReac Type Severity Reaction Status Date / Time Penicillins [PENICILLINS] Allergy Unknown RASH Verified 12/03/23 16:02 Assessment & Plan Assessment & Plan (1) Schizophrenia: Status: Acute Code(s): F20.9 - Schizophrenia, unspecified (2) Cannabis use disorder: Status: Acute Code(s): F12.90 - Cannabis use, unspecified, uncomplicated Plan 12/03: re-titrate clozapine. consider referral to [facility]. 12/04: increase clozapine to 50 mg tonight. 12/05: increase clozapine to 75. [facility] resp[facility] --> retirement, versus [facility]. 12/06: tolerating medication well. increase to 100 mg tonight. Reason for continued inpatient stay Substantial Risk for: inability to function and rapid decompensation Time Spent With Patient Time: Total time managing care of this patient today ____ minutes.
[2023-12-07 20:00] VITALS: BP 126/74; PULSE 114; RESP 8; TEMP 36.6; O2SAT 98
[2023-12-07] MEDS: cloZAPine 100 MG TABLET PO (21:38)
[2023-12-07] MEDS: traZODone HCL 50 MG TABLET PO (21:38)
[2023-12-08 07:43] VITALS: BP 125/62; PULSE 91; RESP 16; TEMP 36.4; O2SAT 97
--- NOTE | 2023-12-08 14:45 | HO.PSYCHPN ---
Subjective Subjective Date of Service: 12/08/23 Reason For Visit: psychosis Interim History: no change in presentation. agreeable to increase clozapine to 125. per staff, +RIS. denies Sx. inc [place]. no behavioral issues. Mental Status Exam Mental Status Exam Narrative: adequately dressed and groomed. cooperative. Lying on mattress on floor. Normal speech. Moderate eye contact. Appropriate affect overall. mood OK. no SI/HI/AVH expressed. Diagnostics Vital Signs (24Hr): Vital Signs - 24 hr 12/07/23 20:00 12/08/23 07:43 Temperature 97.8 F 97.5 F Pulse Rate 114 H 91 Respiratory Rate 8 L 16 Blood Pressure 126/74 125/62 Pulse Oximetry 98 97 Oxygen Delivery Method Room Air BMI result Body Mass Index 44.3 Labs 12/03/23 16:37 12/03/23 16:37 Labs: Laboratory Results - last 48 hr 12/03/23 19:40 Clozapine <10 L Norclozapine <10 L Medications Medications Current Medications Acetaminophen (Acetaminophen 325 Mg Tablet) 650 mg PO Q6H PRN PRN Reason: Headache/Pain Mild Scale (1-3) Al Hydroxide/Mg Hydroxide (Magnesium Hydrox/Alum Hydrox 30 Ml Oral.Susp) 30 ml PO Q6H PRN PRN Reason: Heartburn/Nausea Clozapine (Clozapine 100 Mg Tablet) 100 mg PO BEDTIME KYLE Last Admin: 12/07/23 21:38 Dose: 100 mg Hydroxyzine HCl (Hydroxyzine Hcl 25 Mg Tablet) 25 mg PO Q6H PRN PRN Reason: Anxiety Magnesium Hydroxide (Milk Of Magnesia 30 Ml Oral.Susp) 30 ml PO DAILY PRN PRN Reason: Constipation Trazodone HCl (Trazodone Hcl 50 Mg Tablet) 50 mg PO BEDTIME MRX1 PRN PRN Reason: Insomnia Last Admin: 12/07/23 21:38 Dose: 50 mg Allergies Allergies Allergy/AdvReac Type Severity Reaction Status Date / Time Penicillins [PENICILLINS] Allergy Unknown RASH Verified 12/03/23 16:02 Assessment & Plan Assessment & Plan (1) Schizophrenia: Status: Acute Code(s): F20.9 - Schizophrenia, unspecified (2) Cannabis use disorder: Status: Acute Code(s): F12.90 - Cannabis use, unspecified, uncomplicated Plan 12/03: re-titrate clozapine. [facility] 12/04: increase clozapine to 50 mg tonight. 12/05: increase clozapine to 75. [facility] respite --> assisted, versus [facility]. 12/06: tolerating medication well. increase to 100 mg tonight. 12/07: per collateral from [facility], did best on risperdal [facility]. last got [facility], closely related, 11/01. T/C continuing [facility] versus returning to [facility] in addition to clozapine. increase clozapine to 125 tonight. Reason for continued inpatient stay Substantial Risk for: inability to function and rapid decompensation Time Spent With Patient Time: Total time managing care of this patient today ____ minutes.
[2023-12-08 20:00] VITALS: BP 115/56; PULSE 104; RESP 16; TEMP 36.9; O2SAT 97
[2023-12-08] MEDS: cloZAPine 25 MG TABLET 125 MG PO (21:31)
[2023-12-08] MEDS: traZODone HCL 50 MG TABLET PO (21:34)
[2023-12-09 04:58] LABS: Clozapine (Clozaril) <10 mcg/L; Norclozapine <10 mcg/L (25-400)
[2023-12-09 07:20] VITALS: BP 98/51; PULSE 98; RESP 18; TEMP 36.4; O2SAT 97
--- NOTE | 2023-12-09 13:55 | P.PNPSI_ITS ---
Documented by User: Natalya Sellers NP 12/09/23 16:05 Subjective Subjective Date of Service: 12/09/23 Reason For Visit: psychosis Subjective Notes: Conditional Voluntary Interim History: Reviewed with Dr. Tran. Laying in bed. Guarded and brief. responding with one word answers to questions. Patient reports feeling fine . Pt denies SI/HI/VH/AH. Per nursing report, pt slept 8 hours last night. Medication Compliance: Yes Attending Groups: No Review of Systems Constitutional: Reports as per HPI Eyes: Reports as per HPI Reports as per HPI Cardiovascular: Reports as per HPI Respiratory: Reports as per HPI Gastrointestinal: Reports as per HPI Genitourinary: Reports as per HPI Musculoskeletal: Reports as per HPI Skin/Breast: Reports as per HPI Reports as per HPI Psychiatric: Reports as per HPI Endocrine: Reports as per HPI Hematologic/Lymphatic: Reports as per HPI Allergic/Immunologic: Reports as per HPI Mental Status Exam Mental Status Exam Patient Appearance: Appropriate Patient Orientation: Person, Place, Time and Situation Level of Consciousness: Awake Patient Behavior: Guarded and Poor Eye Contact Mood Description: Calm Affect Description: Flat Speech Pattern: Clear Hallucinations: None Thought Process: Linear Thought Content: positive for Intact Diagnostics Vital Signs (24Hr): Vital Signs - 24 hr 12/08/23 20:00 12/09/23 07:20 Temperature 98.4 F 97.6 F Pulse Rate 104 H 98 Respiratory Rate 16 18 Blood Pressure 115/56 L 98/51 L Pulse Oximetry 97 97 Oxygen Delivery Method Room Air Room Air BMI result Body Mass Index 44.3 Labs 12/03/23 16:37 12/14/23 14:07 Labs: Laboratory Results - last 48 hr 12/04/23 11:28 Clozapine <10 L Norclozapine <10 L Medications Medications Current Medications Acetaminophen (Acetaminophen 325 Mg Tablet) 650 mg PO Q6H PRN PRN Reason: Headache/Pain Mild Scale (1-3) Al Hydroxide/Mg Hydroxide (Magnesium Hydrox/Alum Hydrox 30 Ml Oral.Susp) 30 ml PO Q6H PRN PRN Reason: Heartburn/Nausea Clozapine (Clozapine 25 Mg Tablet) 125 mg PO BEDTIME KYLE Last Admin: 12/08/23 21:31 Dose: 125 mg Hydroxyzine HCl (Hydroxyzine Hcl 25 Mg Tablet) 25 mg PO Q6H PRN PRN Reason: Anxiety Magnesium Hydroxide (Milk Of Magnesia 30 Ml Oral.Susp) 30 ml PO DAILY PRN PRN Reason: Constipation Trazodone HCl (Trazodone Hcl 50 Mg Tablet) 50 mg PO BEDTIME MRX1 PRN PRN Reason: Insomnia Last Admin: 12/08/23 21:34 Dose: 50 mg Allergies Allergies Allergy/AdvReac Type Severity Reaction Status Date / Time Penicillins [PENICILLINS] Allergy Unknown RASH Verified 12/03/23 16:02 Assessment & Plan Assessment & Plan (1) Schizophrenia: Status: Acute Code(s): F20.9 - Schizophrenia, unspecified (2) Cannabis use disorder: Status: Acute Code(s): F12.90 - Cannabis use, unspecified, uncomplicated Plan 12/03: re-titrate clozapine. consider referral to [facility]. 12/04: increase clozapine to 50 mg tonight. 12/05: increase clozapine to 75. [facility] respite --> [facility], versus [facility]. 12/06: tolerating medication well. increase to 100 mg tonight. 12/07: per collateral from [facility], did best on risperdal [facility]. last got [facility], closely related, 11/01. T/C continuing [facility] versus returning to [facility] in addition to clozapine. increase clozapine to 125 tonight. Reason for continued inpatient stay Substantial Risk for: med/psych decompensation Time Spent With Patient Time: Total time managing care of this patient today ____ minutes. Documented by User: Mario Alberto Tran MD 01/12/24 11:42 Subjective Subjective Reason For Visit: psychosis Diagnostics Labs 12/03/23 16:37 12/14/23 14:07 Assessment & Plan Assessment & Plan (1) Schizophrenia: Status: Acute Code(s): F20.9 - Schizophrenia, unspecified (2) Cannabis use disorder: Status: Acute Code(s): F12.90 - Cannabis use, unspecified, uncomplicated Plan 12/03: re-titrate clozapine. consider referral to [facility]. 12/04: increase clozapine to 50 mg tonight. 12/05: increase clozapine to 75. [facility] resp[facility] --> [facility], versus [facility]. 12/06: tolerating medication well. increase to 100 mg tonight. 12/07: per collateral from [facility], did best on risperdal [facility]. last got [facility], closely related, 11/01. T/C continuing [facility] versus returning to [facility] in addition to clozapine. increase clozapine to 125 tonight. 12/08 cont tx plan
[2023-12-09 20:05] VITALS: BP 129/59; PULSE 93; RESP 16; TEMP 36.4; O2SAT 98
[2023-12-09] MEDS: cloZAPine 25 MG TABLET 125 MG PO (20:58)
[2023-12-09] MEDS: traZODone HCL 50 MG TABLET PO (20:58)
[2023-12-10 07:36] VITALS: BP 123/59; PULSE 94; RESP 16; TEMP 36.6; O2SAT 97
--- NOTE | 2023-12-10 16:35 | HO.PSYCHPN ---
Subjective Subjective Date of Service: 12/10/23 Reason For Visit: psychosis Interim History: no change in presentation. agreeable to start risperidone WONG. per staff, withdrawn and guarded but visible at times. slept 8 hours. Mental Status Exam Mental Status Exam Narrative: adequately dressed and groomed. cooperative. Lying on mattress on floor. Normal speech. Moderate eye contact. Appropriate affect overall. mood OK. no SI/HI/AVH expressed. Diagnostics Vital Signs (24Hr): Vital Signs - 24 hr 12/09/23 20:05 12/10/23 07:36 Temperature 97.5 F 97.8 F Pulse Rate 93 94 Respiratory Rate 16 16 Blood Pressure 129/59 L 123/59 L Pulse Oximetry 98 97 Oxygen Delivery Method Room Air Room Air BMI result Body Mass Index 44.3 Labs 12/03/23 16:37 12/03/23 16:37 Labs: Laboratory Results - last 48 hr 12/04/23 11:28 Clozapine <10 L Norclozapine <10 L Medications Medications Current Medications Acetaminophen (Acetaminophen 325 Mg Tablet) 650 mg PO Q6H PRN PRN Reason: Headache/Pain Mild Scale (1-3) Al Hydroxide/Mg Hydroxide (Magnesium Hydrox/Alum Hydrox 30 Ml Oral.Susp) 30 ml PO Q6H PRN PRN Reason: Heartburn/Nausea Clozapine (Clozapine 25 Mg Tablet) 125 mg PO BEDTIME KYLE Last Admin: 12/09/23 20:58 Dose: 125 mg Hydroxyzine HCl (Hydroxyzine Hcl 25 Mg Tablet) 25 mg PO Q6H PRN PRN Reason: Anxiety Magnesium Hydroxide (Milk Of Magnesia 30 Ml Oral.Susp) 30 ml PO DAILY PRN PRN Reason: Constipation Risperidone (Risperidone 2 Mg Tablet) 4 mg PO BEDTIME KYLE Trazodone HCl (Trazodone Hcl 50 Mg Tablet) 50 mg PO BEDTIME MRX1 PRN PRN Reason: Insomnia Last Admin: 12/09/23 20:58 Dose: 50 mg Allergies Allergies Allergy/AdvReac Type Severity Reaction Status Date / Time Penicillins [PENICILLINS] Allergy Unknown RASH Verified 12/03/23 16:02 Assessment & Plan Assessment & Plan (1) Schizophrenia: Status: Acute Code(s): F20.9 - Schizophrenia, unspecified (2) Cannabis use disorder: Status: Acute Code(s): F12.90 - Cannabis use, unspecified, uncomplicated Plan 12/03: re-titrate clozapine. consider referral to [facility]. 12/04: increase clozapine to 50 mg tonight. 12/05: increase clozapine to 75. [facility] respite --> jail, versus [facility]. 12/06: tolerating medication well. increase to 100 mg tonight. 12/07: per collateral from [facility], did best on risperdal [facility]. last got [facility], closely related, 11/01. T/C continuing [facility] versus returning to [facility] in addition to clozapine. increase clozapine to 125 tonight. 12/09: add risperidone 4 mg PO QHS to assess tolerability. pt has h/o [facility], so no difficulties are expected. plan to give risperidone WONG wednesday or wednesday if pt seems to tolerate the medication. Reason for continued inpatient stay Substantial Risk for: inability to function and rapid decompensation Time Spent With Patient Time: Total time managing care of this patient today ___25_ minutes.
[2023-12-10 20:00] VITALS: BP 125/68; PULSE 107; RESP 16; TEMP 37; O2SAT 94
[2023-12-10] MEDS: traZODone HCL 50 MG TABLET PO (21:16)
[2023-12-10] MEDS: risperiDONE 2 MG TABLET 4 MG PO (21:16)
[2023-12-10] MEDS: cloZAPine 25 MG TABLET 125 MG PO (21:18)
[2023-12-11 08:00] VITALS: BP 116/59; PULSE 104; RESP 18; TEMP 36.5; O2SAT 94
[2023-12-11 09:23] LABS: Neut%MD 51.4 %; Neutrophils Absolute Auto 3.7 x10*3/uL (2.0-8.3); WBCANC 7.1 X10*3/uL
--- NOTE | 2023-12-11 09:33 | HO.PSYCHPN ---
Subjective Subjective Date of Service: 12/11/23 Reason For Visit: psychosis Subjective Notes: Conditional Voluntary Interim History: Reviewed with Dr. Tran. Keeping to self. Laying on mattress on floor. Pt reports feeling okay ; guarded. Pt stated, I don't need anything . Observed eating breakfast at his desk later in the morning. Medication Compliance: Yes Side effects from medications: No Attending Groups: No Review of Systems Constitutional: Reports as per HPI Eyes: Reports as per HPI Reports as per HPI Cardiovascular: Reports as per HPI Respiratory: Reports as per HPI Gastrointestinal: Reports as per HPI Genitourinary: Reports as per HPI Musculoskeletal: Reports as per HPI Skin/Breast: Reports as per HPI Reports as per HPI Psychiatric: Reports as per HPI Endocrine: Reports as per HPI Hematologic/Lymphatic: Reports as per HPI Allergic/Immunologic: Reports as per HPI Mental Status Exam Mental Status Exam Narrative: Calm, cooperative. keeping to self, lying on mattress on floor. guarded. poor eye contact. mood okay. no SI/HI/AVH expressed. Diagnostics Vital Signs (24Hr): Vital Signs - 24 hr 12/10/23 20:00 12/11/23 08:00 Temperature 98.6 F 97.7 F Pulse Rate 107 H 104 H Respiratory Rate 16 18 Blood Pressure 125/68 116/59 L Pulse Oximetry 94 94 Oxygen Delivery Method Room Air Room Air BMI result Body Mass Index 44.3 Labs 12/03/23 16:37 12/03/23 16:37 Labs: Laboratory Results - last 48 hr 12/11/23 08:59 Absolute Neuts (auto) 3.7 Medications Medications Current Medications Acetaminophen (Acetaminophen 325 Mg Tablet) 650 mg PO Q6H PRN PRN Reason: Headache/Pain Mild Scale (1-3) Al Hydroxide/Mg Hydroxide (Magnesium Hydrox/Alum Hydrox 30 Ml Oral.Susp) 30 ml PO Q6H PRN PRN Reason: Heartburn/Nausea Clozapine (Clozapine 25 Mg Tablet) 125 mg PO BEDTIME KYLE Last Admin: 12/10/23 21:18 Dose: 125 mg Hydroxyzine HCl (Hydroxyzine Hcl 25 Mg Tablet) 25 mg PO Q6H PRN PRN Reason: Anxiety Magnesium Hydroxide (Milk Of Magnesia 30 Ml Oral.Susp) 30 ml PO DAILY PRN PRN Reason: Constipation Risperidone (Risperidone 2 Mg Tablet) 4 mg PO BEDTIME KYLE Last Admin: 12/10/23 21:16 Dose: 4 mg Trazodone HCl (Trazodone Hcl 50 Mg Tablet) 50 mg PO BEDTIME MRX1 PRN PRN Reason: Insomnia Last Admin: 12/10/23 21:16 Dose: 50 mg Allergies Allergies Allergy/AdvReac Type Severity Reaction Status Date / Time Penicillins [PENICILLINS] Allergy Unknown RASH Verified 12/03/23 16:02 Assessment & Plan Assessment & Plan (1) Schizophrenia: Status: Acute Code(s): F20.9 - Schizophrenia, unspecified (2) Cannabis use disorder: Status: Acute Code(s): F12.90 - Cannabis use, unspecified, uncomplicated Plan 12/03: re-titrate clozapine. consider referral to [facility]. 12/04: increase clozapine to 50 mg tonight. 12/05: increase clozapine to 75. [facility] respite --> care home, versus [facility]. 12/06: tolerating medication well. increase to 100 mg tonight. 12/07: per collateral from [facility], did best on risperdal [facility]. last got [facility], closely related, 11/01. T/C continuing [facility] versus returning to [facility] in addition to clozapine. increase clozapine to 125 tonight. 12/09: add risperidone 4 mg PO QHS to assess tolerability. pt has h/o [facility], so no difficulties are expected. plan to give risperidone WONG wednesday or wednesday if pt seems to tolerate the medication. 12/10: continue current tx plan. Patient educated on: medication risk/benefits Reason for continued inpatient stay Substantial Risk for: med/psych decompensation Time Spent With Patient Time: Total time managing care of this patient today _20___ minutes.
[2023-12-11 20:00] VITALS: BP 123/70; PULSE 99; RESP 16; TEMP 36.6; O2SAT 98
[2023-12-11] MEDS: traZODone HCL 50 MG TABLET PO (21:26)
[2023-12-11] MEDS: risperiDONE 2 MG TABLET 4 MG PO (21:26)
[2023-12-11] MEDS: cloZAPine 25 MG TABLET 125 MG PO (21:27)
[2023-12-12 07:45] VITALS: BP 117/58; PULSE 101; RESP 18; TEMP 36.6; O2SAT 93
--- NOTE | 2023-12-12 09:04 | P.PNPSI_ITS ---
Subjective Subjective Date of Service: 12/12/23 Reason For Visit: psychosis Subjective Notes: Conditional Voluntary Interim History: Reviewed with Dr. Tran. Keeping to self. Laying on mattress on floor. Pt reports feeling good ; guarded. Pt reports auditory hallucinations this morning; Pt stated, my voices just talk about life and what's happening . Pt denies SI/HI/VH. Medication Compliance: Yes Side effects from medications: No Attending Groups: No Review of Systems Constitutional: Reports as per HPI Eyes: Reports as per HPI Reports as per HPI Cardiovascular: Reports as per HPI Respiratory: Reports as per HPI Gastrointestinal: Reports as per HPI Genitourinary: Reports as per HPI Musculoskeletal: Reports as per HPI Skin/Breast: Reports as per HPI Reports as per HPI Psychiatric: Reports as per HPI Endocrine: Reports as per HPI Hematologic/Lymphatic: Reports as per HPI Allergic/Immunologic: Reports as per HPI Mental Status Exam Mental Status Exam Narrative: Calm, cooperative. keeping to self, lying on mattress on floor. guarded. poor eye contact. mood good. Pt reports auditory hallucinations that talk about life and whats happening . denies SI/HI/VH. Diagnostics Vital Signs (24Hr): Vital Signs - 24 hr 12/11/23 20:00 12/12/23 07:45 Temperature 97.8 F 97.8 F Pulse Rate 99 101 H Respiratory Rate 16 18 Blood Pressure 123/70 117/58 L Pulse Oximetry 98 93 Oxygen Delivery Method Room Air Room Air BMI result Body Mass Index 44.3 Labs 12/03/23 16:37 12/03/23 16:37 Labs: Laboratory Results - last 48 hr 12/11/23 08:59 Absolute Neuts (auto) 3.7 Medications Medications Current Medications Acetaminophen (Acetaminophen 325 Mg Tablet) 650 mg PO Q6H PRN PRN Reason: Headache/Pain Mild Scale (1-3) Al Hydroxide/Mg Hydroxide (Magnesium Hydrox/Alum Hydrox 30 Ml Oral.Susp) 30 ml PO Q6H PRN PRN Reason: Heartburn/Nausea Clozapine (Clozapine 25 Mg Tablet) 125 mg PO BEDTIME KYLE Last Admin: 12/11/23 21:27 Dose: 125 mg Hydroxyzine HCl (Hydroxyzine Hcl 25 Mg Tablet) 25 mg PO Q6H PRN PRN Reason: Anxiety Magnesium Hydroxide (Milk Of Magnesia 30 Ml Oral.Susp) 30 ml PO DAILY PRN PRN Reason: Constipation Risperidone (Risperidone 2 Mg Tablet) 4 mg PO BEDTIME KYLE Last Admin: 12/11/23 21:26 Dose: 4 mg Trazodone HCl (Trazodone Hcl 50 Mg Tablet) 50 mg PO BEDTIME MRX1 PRN PRN Reason: Insomnia Last Admin: 12/11/23 21:26 Dose: 50 mg Allergies Allergies Allergy/AdvReac Type Severity Reaction Status Date / Time Penicillins [PENICILLINS] Allergy Unknown RASH Verified 12/03/23 16:02 Assessment & Plan Assessment & Plan (1) Schizophrenia: Status: Acute Code(s): F20.9 - Schizophrenia, unspecified (2) Cannabis use disorder: Status: Acute Code(s): F12.90 - Cannabis use, unspecified, uncomplicated Plan 12/03: re-titrate clozapine. consider referral to [facility]. 12/04: increase clozapine to 50 mg tonight. 12/05: increase clozapine to 75. [facility] respite --> longterm, versus [facility]. 12/06: tolerating medication well. increase to 100 mg tonight. 12/07: per collateral from [facility], did best on [facility]perdal [facility]. [facility], [facility]/01. T/C continuing [facility] versus returning to [facility] in addition to clozapine. increase clozapine to 125 tonight. 12/09: add risperidone 4 mg PO QHS to assess tolerability. pt has h/o [facility], so no difficulties are expected. plan to give risperidone WONG wednesday or wednesday if pt seems to tolerate the medication. 12/10: continue current tx plan. 12/11: Keeping to self. Laying on mattress on floor. Pt reports feeling good ; guarded. Pt reports auditory hallucinations this morning; Pt stated, my voices just talk about life and what's happening . Pt denies SI/HI/VH. Continue current tx plan. Patient educated on: diagnosis and medication risk/benefits Reason for continued inpatient stay Substantial Risk for: med/psych decompensation Time Spent With Patient Time: Total time managing care of this patient today _20___ minutes.
[2023-12-12 19:59] VITALS: BP 126/84; PULSE 112; RESP 16; TEMP 36.8; O2SAT 96
[2023-12-12] MEDS: cloZAPine 25 MG TABLET 125 MG PO (20:29)
[2023-12-12] MEDS: risperiDONE 2 MG TABLET 4 MG PO (20:29)
[2023-12-13 07:45] VITALS: BP 105/55; PULSE 98; RESP 16; TEMP 36.9; O2SAT 95
--- NOTE | 2023-12-13 18:23 | P.PNPSI_ITS ---
Subjective Subjective Date of Service: 12/13/23 Reason For Visit: psychosis Interim History: adequately tolerating PO risperidone. agreeable to DC PO and start IM or SC. per staff, stable presentation over weekend. Mental Status Exam Mental Status Exam Narrative: Calm, cooperative. keeping to self, lying on mattress on floor. guarded. poor eye contact. mood good. Pt reports auditory hallucinations that talk about life and whats happening . denies SI/HI/VH. Diagnostics Vital Signs (24Hr): Vital Signs - 24 hr 12/12/23 19:59 12/13/23 07:45 Temperature 98.2 F 98.5 F Pulse Rate 112 H 98 Respiratory Rate 16 16 Blood Pressure 126/84 105/55 L Pulse Oximetry 96 95 Oxygen Delivery Method Room Air Room Air BMI result Body Mass Index 44.3 Labs 12/03/23 16:37 12/03/23 16:37 Medications Medications Current Medications Acetaminophen (Acetaminophen 325 Mg Tablet) 650 mg PO Q6H PRN PRN Reason: Headache/Pain Mild Scale (1-3) Al Hydroxide/Mg Hydroxide (Magnesium Hydrox/Alum Hydrox 30 Ml Oral.Susp) 30 ml PO Q6H PRN PRN Reason: Heartburn/Nausea Clozapine (Clozapine 25 Mg Tablet) 125 mg PO BEDTIME KYLE Last Admin: 12/12/23 20:29 Dose: 125 mg Hydroxyzine HCl (Hydroxyzine Hcl 25 Mg Tablet) 25 mg PO Q6H PRN PRN Reason: Anxiety Magnesium Hydroxide (Milk Of Magnesia 30 Ml Oral.Susp) 30 ml PO DAILY PRN PRN Reason: Constipation Risperidone (Risperidone Er 100 Mg/0.28 Ml Suser.Syr) 100 mg SUBCUT Q30D KYLE Trazodone HCl (Trazodone Hcl 50 Mg Tablet) 50 mg PO BEDTIME MRX1 PRN PRN Reason: Insomnia Last Admin: 12/11/23 21:26 Dose: 50 mg Allergies Allergies Allergy/AdvReac Type Severity Reaction Status Date / Time Penicillins [PENICILLINS] Allergy Unknown RASH Verified 12/03/23 16:02 Assessment & Plan Assessment & Plan (1) Schizophrenia: Status: Acute Code(s): F20.9 - Schizophrenia, unspecified (2) Cannabis use disorder: Status: Acute Code(s): F12.90 - Cannabis use, unspecified, uncomplicated Plan 12/03: re-titrate clozapine. consider referral to [facility]. 12/04: increase clozapine to 50 mg tonight. 12/05: increase clozapine to 75. [facility] respite --> residential, versus [facility]. 12/06: tolerating medication well. increase to 100 mg tonight. 12/07: per collateral from [facility], did best on risperdal [facility]. last got [facility], closely related, 11/01. T/C continuing [facility] versus returning to [facility] in addition to clozapine. increase clozapine to 125 tonight. 12/09: add risperidone 4 mg PO QHS to assess tolerability. pt has h/o [facility], so no difficulties are expected. plan to give risperidone WONG wednesday or wednesday if pt seems to tolerate the medication. 12/10: continue current tx plan. 12/11: Keeping to self. Laying on mattress on floor. Pt reports feeling good ; guarded. Pt reports auditory hallucinations this morning; Pt stated, my voices just talk about life and what's happening . Pt denies SI/HI/VH. Continue current tx plan. 12/12: DC PO risperidone, start monthly IM uzedy 100 mg tomorrow. no change in presentation. Reason for continued inpatient stay Substantial Risk for: inability to function and rapid decompensation Time Spent With Patient Time: Total time managing care of this patient today __25__ minutes.
[2023-12-13 20:00] VITALS: BP 118/58; PULSE 109; RESP 16; TEMP 36.6; O2SAT 96
[2023-12-13] MEDS: cloZAPine 25 MG TABLET 125 MG PO (21:22)
[2023-12-13] MEDS: traZODone HCL 50 MG TABLET PO (21:25)
[2023-12-14 07:35] VITALS: BP 101/65; PULSE 91; RESP 14; TEMP 36.8; O2SAT 97
[2023-12-14 14:29] LABS: Creatinine Clr Calc Pharmacy 171.6; Estimated Glomerular Filt Rate > 60
--- NOTE | 2023-12-14 16:09 | P.PNPSI_ITS ---
Subjective Subjective Date of Service: 12/14/23 Reason For Visit: psychosis Interim History: no change in presentation. give uzedy 100 mg SC. Mental Status Exam Mental Status Exam Narrative: Calm, cooperative. keeping to self, lying on mattress on floor. guarded. poor eye contact. mood good. Pt reports auditory hallucinations that talk about life and whats happening . denies SI/HI/VH. Diagnostics Vital Signs (24Hr): Vital Signs - 24 hr 12/13/23 20:00 12/14/23 07:35 Temperature 97.8 F 98.3 F Pulse Rate 109 H 91 Respiratory Rate 16 14 Blood Pressure 118/58 L 101/65 Pulse Oximetry 96 97 Oxygen Delivery Method Room Air Room Air BMI result Body Mass Index 44.3 Labs 12/03/23 16:37 12/14/23 14:07 Labs: Laboratory Results - last 48 hr 12/14/23 14:07 Creatinine 0.87 Estim Creat Clear Calc 171.6 Estimated GFR > 60 Medications Medications Current Medications Acetaminophen (Acetaminophen 325 Mg Tablet) 650 mg PO Q6H PRN PRN Reason: Headache/Pain Mild Scale (1-3) Al Hydroxide/Mg Hydroxide (Magnesium Hydrox/Alum Hydrox 30 Ml Oral.Susp) 30 ml PO Q6H PRN PRN Reason: Heartburn/Nausea Clozapine (Clozapine 25 Mg Tablet) 125 mg PO BEDTIME [facility] Last Admin: 12/13/23 21:22 Dose: 125 mg Hydroxyzine HCl (Hydroxyzine Hcl 25 Mg Tablet) 25 mg PO Q6H PRN PRN Reason: Anxiety Magnesium Hydroxide (Milk Of Magnesia 30 Ml Oral.Susp) 30 ml PO DAILY PRN PRN Reason: Constipation Risperidone (Risperidone Er 100 Mg/0.28 Ml Suser.Syr) 100 mg SUBCUT Q30D [facility] Last Admin: 12/14/23 10:41 Dose: Not Given Risperidone (Risperidone Er 100 Mg/0.28 Ml Suser.Syr) 100 mg SUBCUT Q30D [facility] Trazodone HCl (Trazodone Hcl 50 Mg Tablet) 50 mg PO BEDTIME MRX1 PRN PRN Reason: Insomnia Last Admin: 12/13/23 21:25 Dose: 50 mg Allergies Allergies Allergy/AdvReac Type Severity Reaction Status Date / Time Penicillins [PENICILLINS] Allergy Unknown RASH Verified 12/03/23 16:02 Assessment & Plan Assessment & Plan (1) Schizophrenia: Status: Acute Code(s): F20.9 - Schizophrenia, unspecified (2) Cannabis use disorder: Status: Acute Code(s): F12.90 - Cannabis use, unspecified, uncomplicated Plan 12/03: re-titrate clozapine. consider referral to [facility]. 12/04: increase clozapine to 50 mg tonight. 12/05: increase clozapine to 75. [facility] respite --> long term, versus [facility]. 12/06: tolerating medication well. increase to 100 mg tonight. 12/07: per collateral from [facility], did best on risperdal [facility]. last got [facility] sustenna, closely related, 11/01. T/C continuing [facility] versus returning to [facility] in addition to clozapine. increase clozapine to 125 tonight. 12/09: add risperidone 4 mg PO QHS to assess tolerability. pt has h/o consta, so no difficulties are expected. plan to give risperidone WONG wednesday or wednesday if pt seems to tolerate the medication. 12/10: continue current tx plan. 12/11: Keeping to self. Laying on mattress on floor. Pt reports feeling good ; guarded. Pt reports auditory hallucinations this morning; Pt stated, my voices just talk about life and what's happening . Pt denies SI/HI/VH. Continue current tx plan. 12/12: DC PO risperidone, start monthly IM uzedy 100 mg tomorrow. no change in presentation. 12/13: no change. give uzedy 100 mg SC as soon as available from pharmacy. continue clozaril 125 mg QHS. Reason for continued inpatient stay Substantial Risk for: inability to function and rapid decompensation Time Spent With Patient Time: Total time managing care of this patient today __25__ minutes.
[2023-12-14] MEDS: risperiDONE ER 100 MG/0.28 ML SUSER.SYR SUBCUT (16:49)
[2023-12-14 20:00] VITALS: BP 144/84; PULSE 102; RESP 16; TEMP 36.9; O2SAT 95
[2023-12-14] MEDS: cloZAPine 25 MG TABLET 125 MG PO (20:56)
[2023-12-14] MEDS: traZODone HCL 50 MG TABLET PO (20:58)
[2023-12-15 07:47] VITALS: BP 128/63; PULSE 84; RESP 14; TEMP 36.4; O2SAT 96
--- NOTE | 2023-12-15 16:05 | P.PNPSI_ITS ---
Subjective Subjective Date of Service: 12/15/23 Reason For Visit: psychosis Interim History: no change in presentation. denies any injection site reaction or other side effects attributable to the SC uzedy. discuss observation period with discharge sometime early next week. per staff, no anx/dep. +RIS. received uzedy. +AH in the background. Mental Status Exam Mental Status Exam Narrative: Calm, cooperative. keeping to self, lying on mattress on floor. guarded. poor eye contact. mood good. no SI/HI/AVH expressed. Diagnostics Vital Signs (24Hr): Vital Signs - 24 hr 12/14/23 20:00 12/15/23 07:47 Temperature 98.4 F 97.5 F Pulse Rate 102 H 84 Respiratory Rate 16 14 Blood Pressure 144/84 H 128/63 Pulse Oximetry 95 96 Oxygen Delivery Method Room Air Room Air BMI result Body Mass Index 44.3 Labs 12/03/23 16:37 12/14/23 14:07 Labs: Laboratory Results - last 48 hr 12/14/23 14:07 Creatinine 0.87 Estim Creat Clear Calc 171.6 Estimated GFR > 60 Medications Medications Current Medications Acetaminophen (Acetaminophen 325 Mg Tablet) 650 mg PO Q6H PRN PRN Reason: Headache/Pain Mild Scale (1-3) Al Hydroxide/Mg Hydroxide (Magnesium Hydrox/Alum Hydrox 30 Ml Oral.Susp) 30 ml PO Q6H PRN PRN Reason: Heartburn/Nausea Clozapine (Clozapine 25 Mg Tablet) 125 mg PO BEDTIME [facility] Last Admin: 12/14/23 20:56 Dose: 125 mg Hydroxyzine HCl (Hydroxyzine Hcl 25 Mg Tablet) 25 mg PO Q6H PRN PRN Reason: Anxiety Magnesium Hydroxide (Milk Of Magnesia 30 Ml Oral.Susp) 30 ml PO DAILY PRN PRN Reason: Constipation Risperidone (Risperidone Er 100 Mg/0.28 Ml Suser.Syr) 100 mg SUBCUT Q30D [facility] Last Admin: 12/14/23 10:41 Dose: Not Given Risperidone (Risperidone Er 100 Mg/0.28 Ml Suser.Syr) 100 mg SUBCUT Q30D [facility] Last Admin: 12/14/23 16:49 Dose: 100 mg Trazodone HCl (Trazodone Hcl 50 Mg Tablet) 50 mg PO BEDTIME MRX1 PRN PRN Reason: Insomnia Last Admin: 12/14/23 20:58 Dose: 50 mg Allergies Allergies Allergy/AdvReac Type Severity Reaction Status Date / Time Penicillins [PENICILLINS] Allergy Unknown RASH Verified 12/03/23 16:02 Assessment & Plan Assessment & Plan (1) Schizophrenia: Status: Acute Code(s): F20.9 - Schizophrenia, unspecified (2) Cannabis use disorder: Status: Acute Code(s): F12.90 - Cannabis use, unspecified, uncomplicated Plan 12/03: re-titrate clozapine. consider referral to [facility]. 12/04: increase clozapine to 50 mg tonight. 12/05: increase clozapine to 75. [facility] respite --> assisted, versus [facility]. 12/06: tolerating medication well. increase to 100 mg tonight. 12/07: per collateral from [facility], did best on risperdal [facility]. last got [facility] phil, closely related, 11/01. T/C continuing in[facility] versus returning to [facility] in addition to clozapine. increase clozapine to 125 tonight. 12/09: add risperidone 4 mg PO QHS to assess tolerability. pt has h/o consta, so no difficulties are expected. plan to give risperidone WONG wednesday or wednesday if pt seems to tolerate the medication. 12/10: continue current tx plan. 12/11: Keeping to self. Laying on mattress on floor. Pt reports feeling good ; guarded. Pt reports auditory hallucinations this morning; Pt stated, my voices just talk about life and what's happening . Pt denies SI/HI/VH. Continue current tx plan. 12/12: DC PO risperidone, start monthly IM uzedy 100 mg tomorrow. no change in presentation. 12/13: no change. give uzedy 100 mg SC as soon as available from pharmacy. continue clozaril 125 mg QHS. 12/14: received uzedy 100 mg yesterday. no s/e. continue current mgmt. Reason for continued inpatient stay Substantial Risk for: inability to function and rapid decompensation Time Spent With Patient Time: Total time managing care of this patient today ____ minutes.
[2023-12-15 20:00] VITALS: BP 133/70; PULSE 118; TEMP 36.5; O2SAT 97
[2023-12-15] MEDS: cloZAPine 25 MG TABLET 125 MG PO (21:01)
[2023-12-15] MEDS: traZODone HCL 50 MG TABLET PO (21:02)
--- NOTE | 2023-12-16 06:32 | P.PNPSI_ITS ---
Subjective Subjective Date of Service: 12/16/23 Reason For Visit: psychosis Interim History: calm, cooperative. no [place], feeling well, reports minimal AH. denies s/e or injection site reactions. per staff, denies Sx. sleeping days. taking meds. +RIS. up eves listening to headphones. Mental Status Exam Mental Status Exam Narrative: Calm, cooperative. keeping to self, lying on mattress on floor. guarded. fair eye contact. mood good. minimal AH. no SI/HI/VH expressed. Diagnostics Vital Signs (24Hr): Vital Signs - 24 hr 12/15/23 07:47 12/15/23 20:00 Temperature 97.5 F 97.7 F Pulse Rate 84 118 H Respiratory Rate 14 Blood Pressure 128/63 133/70 Pulse Oximetry 96 97 Oxygen Delivery Method Room Air BMI result Body Mass Index 44.3 Labs 12/03/23 16:37 12/14/23 14:07 Labs: Laboratory Results - last 48 hr 12/14/23 14:07 Creatinine 0.87 Estim Creat Clear Calc 171.6 Estimated GFR > 60 Medications Medications Current Medications Acetaminophen (Acetaminophen 325 Mg Tablet) 650 mg PO Q6H PRN PRN Reason: Headache/Pain Mild Scale (1-3) Al Hydroxide/Mg Hydroxide (Magnesium Hydrox/Alum Hydrox 30 Ml Oral.Susp) 30 ml PO Q6H PRN PRN Reason: Heartburn/Nausea Clozapine (Clozapine 25 Mg Tablet) 125 mg PO BEDTIME [facility] Last Admin: 12/15/23 21:01 Dose: 125 mg Hydroxyzine HCl (Hydroxyzine Hcl 25 Mg Tablet) 25 mg PO Q6H PRN PRN Reason: Anxiety Magnesium Hydroxide (Milk Of Magnesia 30 Ml Oral.Susp) 30 ml PO DAILY PRN PRN Reason: Constipation Risperidone (Risperidone Er 100 Mg/0.28 Ml Suser.Syr) 100 mg SUBCUT Q30D [facility] Last Admin: 12/14/23 10:41 Dose: Not Given Risperidone (Risperidone Er 100 Mg/0.28 Ml Suser.Syr) 100 mg SUBCUT Q30D [facility] Last Admin: 12/14/23 16:49 Dose: 100 mg Trazodone HCl (Trazodone Hcl 50 Mg Tablet) 50 mg PO BEDTIME MRX1 PRN PRN Reason: Insomnia Last Admin: 12/15/23 21:02 Dose: 50 mg Allergies Allergies Allergy/AdvReac Type Severity Reaction Status Date / Time Penicillins [PENICILLINS] Allergy Unknown RASH Verified 12/03/23 16:02 Assessment & Plan Assessment & Plan (1) Schizophrenia: Status: Acute Code(s): F20.9 - Schizophrenia, unspecified (2) Cannabis use disorder: Status: Acute Code(s): F12.90 - Cannabis use, unspecified, uncomplicated Plan 12/03: re-titrate clozapine. consider referral to [facility]. 12/04: increase clozapine to 50 mg tonight. 12/05: increase clozapine to 75. [facility] respite --> retirement, versus [facility]. 12/06: tolerating medication well. increase to 100 mg tonight. 12/07: per collateral from [facility], did best on risperdal [facility]. last got [facility]ga phil, closely related, 11/01. T/C continuing invega versus returning to [facility] in addition to clozapine. increase clozapine to 125 tonight. 12/09: add risperidone 4 mg PO QHS to assess tolerability. pt has h/o consta, so no difficulties are expected. plan to give risperidone WONG wednesday or wednesday if pt seems to tolerate the medication. 12/10: continue current tx plan. 12/11: Keeping to self. Laying on mattress on floor. Pt reports feeling good ; guarded. Pt reports auditory hallucinations this morning; Pt stated, my voices just talk about life and what's happening . Pt denies SI/HI/VH. Continue current tx plan. 12/12: DC PO risperidone, start monthly IM uzedy 100 mg tomorrow. no change in presentation. 12/13: no change. give uzedy 100 mg SC as soon as available from pharmacy. continue clozaril 125 mg QHS. 12/14: received uzedy 100 mg yesterday. no s/e. continue current mgmt. 12/15: continues to feel well and without s/e. AH minimal. continue current mgmt. 12/16: continue current mgmt Reason for continued inpatient stay Substantial Risk for: inability to function and rapid decompensation Time Spent With Patient Time: Total time managing care of this patient today ____ minutes.
[2023-12-16 07:00] VITALS: BMI 47.8
[2023-12-16 07:39] VITALS: BP 110/57; PULSE 94; RESP 16; TEMP 37.1; O2SAT 98
[2023-12-16] MEDS: cloZAPine 25 MG TABLET 125 MG PO (17:06)
[2023-12-16 20:00] VITALS: BP 131/84; PULSE 111; TEMP 36.8; O2SAT 95
[2023-12-16] MEDS: traZODone HCL 50 MG TABLET PO (22:23)
[2023-12-17 08:34] VITALS: BP 130/80; PULSE 94; TEMP 36.4; O2SAT 98
[2023-12-17] MEDS: cloZAPine 25 MG TABLET 125 MG PO (16:28)
[2023-12-17 19:52] VITALS: BP 127/56; PULSE 114; RESP 18; TEMP 36.7; O2SAT 97
[2023-12-17] MEDS: traZODone HCL 50 MG TABLET PO (22:34)
[2023-12-18 07:40] LABS: Neut%MD 51.6 %; Neutrophils Absolute Auto 4.4 x10*3/uL (2.0-8.3); WBCANC 8.6 X10*3/uL
[2023-12-18 08:00] VITALS: BP 115/56; PULSE 87; RESP 16; TEMP 36.8; O2SAT 96
--- NOTE | 2023-12-18 08:17 | P.PNPSI_ITS ---
Subjective Subjective Date of Service: 12/18/23 Reason For Visit: psychosis Interim History: met with patient. Discussed with Nursing. Overall isolative which is consistent with baseline. Sleeping on the floor also consistent with baseline. No concerns regarding long-acting injectable Risperdal. Reports feeling safe. Denies hallucinations today. Denies depression etc. Medication Compliance: Yes Side effects from medications: No Attending Groups: No Review of Systems Acute medical concerns: No Review of Systems Review of Systems unremarkable Eyes: Reports as per HPI Reports as per HPI Cardiovascular: Reports as per HPI Respiratory: Reports as per HPI Gastrointestinal: Reports as per HPI Genitourinary: Reports as per HPI Musculoskeletal: Reports as per HPI Skin/Breast: Reports as per HPI Reports as per HPI Psychiatric: Reports as per HPI Endocrine: Reports as per HPI Hematologic/Lymphatic: Reports as per HPI Allergic/Immunologic: Reports as per HPI Mental Status Exam Mental Status Exam Narrative: Calm, cooperative. keeping to self, lying on mattress on floor. guarded. fair eye contact. mood good. minimal AH. no SI/HI/VH expressed. Diagnostics Vital Signs (24Hr): Vital Signs - 24 hr 12/17/23 08:34 12/17/23 19:52 Temperature 97.6 F 98.0 F Pulse Rate 94 114 H Respiratory Rate 18 Blood Pressure 130/80 127/56 L Pulse Oximetry 98 97 Oxygen Delivery Method Room Air Room Air BMI result Body Mass Index 47.8 Labs 12/03/23 16:37 12/14/23 14:07 Labs: Laboratory Results - last 48 hr 12/18/23 07:19 Absolute Neuts (auto) 4.4 Medications Medications Current Medications Acetaminophen (Acetaminophen 325 Mg Tablet) 650 mg PO Q6H PRN PRN Reason: Headache/Pain Mild Scale (1-3) Al Hydroxide/Mg Hydroxide (Magnesium Hydrox/Alum Hydrox 30 Ml Oral.Susp) 30 ml PO Q6H PRN PRN Reason: Heartburn/Nausea Clozapine (Clozapine 25 Mg Tablet) 125 mg PO DAILY@1700 [facility] Last Admin: 12/17/23 16:28 Dose: 125 mg Hydroxyzine HCl (Hydroxyzine Hcl 25 Mg Tablet) 25 mg PO Q6H PRN PRN Reason: Anxiety Magnesium Hydroxide (Milk Of Magnesia 30 Ml Oral.Susp) 30 ml PO DAILY PRN PRN Reason: Constipation Risperidone (Risperidone Er 100 Mg/0.28 Ml Suser.Syr) 100 mg SUBCUT Q30D [facility] Last Admin: 12/14/23 10:41 Dose: Not Given Risperidone (Risperidone Er 100 Mg/0.28 Ml Suser.Syr) 100 mg SUBCUT Q30D [facility] Last Admin: 12/14/23 16:49 Dose: 100 mg Trazodone HCl (Trazodone Hcl 50 Mg Tablet) 50 mg PO BEDTIME MRX1 PRN PRN Reason: Insomnia Last Admin: 12/17/23 22:34 Dose: 50 mg Allergies Allergies Allergy/AdvReac Type Severity Reaction Status Date / Time Penicillins [PENICILLINS] Allergy Unknown RASH Verified 12/03/23 16:02 Assessment & Plan Assessment & Plan (1) Schizophrenia: Status: Acute Code(s): F20.9 - Schizophrenia, unspecified (2) Cannabis use disorder: Status: Acute Code(s): F12.90 - Cannabis use, unspecified, uncomplicated Plan 12/03: re-titrate clozapine. consider referral to [facility]. 12/04: increase clozapine to 50 mg tonight. 12/05: increase clozapine to 75. [facility] respite --> intermediate, versus [facility]. 12/06: tolerating medication well. increase to 100 mg tonight. 12/07: per collateral from [facility], did best on risperdal [facility]. last got nora villarreal, closely related, 11/01. T/C continuing [facility] versus returning to [facility] in addition to clozapine. increase clozapine to 125 tonight. 12/09: add risperidone 4 mg PO QHS to assess tolerability. pt has h/o consta, so no difficulties are expected. plan to give risperidone WONG wednesday or wednesday if pt seems to tolerate the medication. 12/10: continue current tx plan. 12/11: Keeping to self. Laying on mattress on floor. Pt reports feeling good ; guarded. Pt reports auditory hallucinations this morning; Pt stated, my voices just talk about life and what's happening . Pt denies SI/HI/VH. Continue current tx plan. 12/12: DC PO risperidone, start monthly IM uzedy 100 mg tomorrow. no change in presentation. 12/13: no change. give uzedy 100 mg SC as soon as available from pharmacy. continue clozaril 125 mg QHS. 7/17: received uzedy 100 mg yesterday. no s/e. continue current mgmt. 12/15: continues to feel well and without s/e. AH minimal. continue current mgmt. 12/16: continue current mgmt 12/18/2023: No changes Reason for continued inpatient stay Substantial Risk for: rapid decompensation Time Spent With Patient Time: Total time managing care of this patient today ____ minutes.
[2023-12-18] MEDS: cloZAPine 25 MG TABLET 125 MG PO (17:31)
[2023-12-18 19:16] VITALS: BP 131/76; PULSE 114; RESP 18; TEMP 36.7; O2SAT 95
[2023-12-18] MEDS: traZODone HCL 50 MG TABLET PO (22:09)
[2023-12-19 07:50] VITALS: BP 110/57; PULSE 99; RESP 20; TEMP 36.6; O2SAT 93
[2023-12-19 08:00] VITALS: BP 110/57; PULSE 99; RESP 18; TEMP 36.6; O2SAT 96
--- NOTE | 2023-12-19 10:31 | HO.PSYCHPN ---
Subjective Subjective Date of Service: 12/19/23 Reason For Visit: psychosis Interim History: Continues to be isolative and sleeping on mattress on the floor- both consistent with baseline. Reports feeling fine I am relaxing , denies depression or AH or SI. Feels safe. No concerns regarding long-acting injectable Risperdal. Medication Compliance: Yes Side effects from medications: No Attending Groups: No Review of Systems Acute medical concerns: No Review of Systems Review of Systems unremarkable Mental Status Exam Mental Status Exam Narrative: Calm, cooperative. keeping to self, lying on mattress on floor. guarded. fair eye contact. mood good. denies AH. no SI/HI/VH expressed. Diagnostics Vital Signs (24Hr): Vital Signs - 24 hr 12/18/23 19:16 12/19/23 07:50 Temperature 98.0 F 97.8 F Pulse Rate 114 H 99 Respiratory Rate 18 20 Blood Pressure 131/76 110/57 L Pulse Oximetry 95 93 Oxygen Delivery Method Room Air Room Air BMI result Body Mass Index 47.8 Labs 12/03/23 16:37 12/14/23 14:07 Labs: Laboratory Results - last 48 hr 12/18/23 07:19 Absolute Neuts (auto) 4.4 Medications Medications Current Medications Acetaminophen (Acetaminophen 325 Mg Tablet) 650 mg PO Q6H PRN PRN Reason: Headache/Pain Mild Scale (1-3) Al Hydroxide/Mg Hydroxide (Magnesium Hydrox/Alum Hydrox 30 Ml Oral.Susp) 30 ml PO Q6H PRN PRN Reason: Heartburn/Nausea Clozapine (Clozapine 25 Mg Tablet) 125 mg PO DAILY@1700 [facility] Last Admin: 12/18/23 17:31 Dose: 125 mg Hydroxyzine HCl (Hydroxyzine Hcl 25 Mg Tablet) 25 mg PO Q6H PRN PRN Reason: Anxiety Magnesium Hydroxide (Milk Of Magnesia 30 Ml Oral.Susp) 30 ml PO DAILY PRN PRN Reason: Constipation Risperidone (Risperidone Er 100 Mg/0.28 Ml Suser.Syr) 100 mg SUBCUT Q30D [facility] Last Admin: 12/14/23 10:41 Dose: Not Given Risperidone (Risperidone Er 100 Mg/0.28 Ml Suser.Syr) 100 mg SUBCUT Q30D [facility] Last Admin: 12/14/23 16:49 Dose: 100 mg Trazodone HCl (Trazodone Hcl 50 Mg Tablet) 50 mg PO BEDTIME MRX1 PRN PRN Reason: Insomnia Last Admin: 12/18/23 22:09 Dose: 50 mg Allergies Allergies Allergy/AdvReac Type Severity Reaction Status Date / Time Penicillins [PENICILLINS] Allergy Unknown RASH Verified 12/03/23 16:02 Assessment & Plan Assessment & Plan (1) Schizophrenia: Status: Acute Code(s): F20.9 - Schizophrenia, unspecified (2) Cannabis use disorder: Status: Acute Code(s): F12.90 - Cannabis use, unspecified, uncomplicated Plan 12/03: re-titrate clozapine. consider referral to [facility]. 12/04: increase clozapine to 50 mg tonight. 12/05: increase clozapine to 75. [facility] respite --> senior care, versus [facility]. 12/06: tolerating medication well. increase to 100 mg tonight. 12/07: per collateral from [facility], did best on risperdal [facility]. last got invega phil, closely related, 11/01. T/C continuing [facility] versus returning to [facility] in addition to clozapine. increase clozapine to 125 tonight. 12/09: add risperidone 4 mg PO QHS to assess tolerability. pt has h/o consta, so no difficulties are expected. plan to give risperidone WONG wednesday or wednesday if pt seems to tolerate the medication. 12/10: continue current tx plan. 12/11: Keeping to self. Laying on mattress on floor. Pt reports feeling good ; guarded. Pt reports auditory hallucinations this morning; Pt stated, my voices just talk about life and what's happening . Pt denies SI/HI/VH. Continue current tx plan. 12/12: DC PO risperidone, start monthly IM uzedy 100 mg tomorrow. no change in presentation. 12/13: no change. give uzedy 100 mg SC as soon as available from pharmacy. continue clozaril 125 mg QHS. 12/14: received uzedy 100 mg yesterday. no s/e. continue current mgmt. 12/15: continues to feel well and without s/e. AH minimal. continue current mgmt. 12/16: continue current mgmt 12/19/2023: No changes Reason for continued inpatient stay Substantial Risk for: inability to function and rapid decompensation Time Spent With Patient Time: Total time managing care of this patient today ____ minutes.
[2023-12-19] MEDS: cloZAPine 25 MG TABLET 125 MG PO (17:25)
[2023-12-19 20:00] VITALS: BP 132/80; PULSE 109; RESP 16; TEMP 36.6; O2SAT 99
[2023-12-19] MEDS: traZODone HCL 50 MG TABLET PO (21:12)
[2023-12-20 07:45] VITALS: BP 125/58; PULSE 97; RESP 14; TEMP 36.7; O2SAT 95
--- NOTE | 2023-12-20 11:52 | PM.PSYDC ---
DS: Providers Provider Date of Service: 12/20/23 Date of admission: 12/03/23 21:21 Primary care physician: Unknown Physician DS: Diagnosis Discharge Diagnosis (1) Schizophrenia: Status: Acute (2) Cannabis use disorder: Status: Acute DS: Medications Discharge Medications Home Medications: Previous Rx's ?Medication ?Instructions ?Recorded clozapine 25 mg tablet 125 mg (5 x 25 mg) PO BEDTIME 30 12/20/23 days #150 tabs risperidone 100 mg/0.28 mL 100 mg (0.28 mL) subcut Q30D 30 12/20/23 subcutaneous extend release susp days #0.28 mL syringe (Uzedy) Mental Status Exam Mental Status Exam Narrative: Calm, cooperative. keeping to self, lying on mattress on floor. guarded. fair eye contact. mood happy. no SI/HI/AVH. Data Data Completed and Pending Completed studies during hospitalization [Text1]: 12/14/23 12/18/23 14:07 07:19 Absolute Neuts (auto) 4.4 Creatinine 0.87 Estim Creat Clear Calc 171.6 Estimated GFR > 60 DS: Summary Hospital Course Hospital Course: per 12/03 admission note: pt left M3 11/17 on clozapine. in the past week he reportedly has not been compliant with medication and has deteriorated. in ED he was apparently discussing himself in the third person and disorganized. on interview on unit he is delusional, pointing to his heart and saying, somebody keeps opening him up. he states he took medications a couple of times after leaving the hospital last time. Past Psychiatric History: h/o schizophrenia hosp: multiple hospitalizations. most recent inpt M3. h/o medication non-compliance. seen at [facility]. DM services. no documented h/o SA/SIB/HIB. Medical Evaluation Reviewed: Yes [facility] Medical History Schizophrenia Family History: reportedly there is a FH of mental illness and ASHANTI. sister - PTSD mother - bipolar disorder, schizophrenia, PTSD Social History: [place] 13 [place]. one of three kids. sibs spent some time in foster care when he was 4 yo and then reunited a few years later. mother is and remarried. pt lives with his mother single, never , no children. receives [employer] income. HS grad. He does work at [employer] Substance History: cannabis - utox POS Trauma History: alluded to childhood H/O trauma, has not specified, possibly while in foster care. Precis: 12/03: re-titrate clozapine. consider referral to [facility]. 12/04: increase clozapine to 50 mg tonight. 12/05: increase clozapine to 75. [facility] respite --> residential, versus [facility]. 12/06: tolerating medication well. increase to 100 mg tonight. 12/07: per collateral from [facility], did best on risperdal consta. last got invega sustenna, closely related, 11/01. T/C continuing invega versus returning to consta in addition to clozapine. increase clozapine to 125 tonight. 12/09: add risperidone 4 mg PO QHS to assess tolerability. pt has h/o consta, so no difficulties are expected. plan to give risperidone WONG wednesday or wednesday if pt seems to tolerate the medication. 12/10: continue current tx plan. 12/11: Keeping to self. Laying on mattress on floor. Pt reports feeling good ; guarded. Pt reports auditory hallucinations this morning; Pt stated, my voices just talk about life and what's happening . Pt denies SI/HI/VH. Continue current tx plan. 12/12: DC PO risperidone, start monthly IM uzedy 100 mg tomorrow. no change in presentation. 12/13: no change. give uzedy 100 mg SC as soon as available from pharmacy. continue clozaril 125 mg QHS. 12/14: received uzedy 100 mg yesterday. no s/e. continue current mgmt. 12/15: continues to feel well and without s/e. AH minimal. continue current mgmt. 12/16: continue current mgmt 12/18: No changes 12/19: calm, cooperative, stable. planning for discharge tomorrow. 12/20: remains stable. discharged to outpt care as per plan. Time Spent with Patient Time attestation: Total time managing care of this patient today __35__ minutes. Discharge Plan Discharge Anticipated Discharge Date/Time: 12/21/23 11:30 Patient Disposition: Home, Self-Care Discharge Diagnosis: Schizophrenia Referrals: Dr. Darwin Madsen (Psychiatry) [Other] - 01/11/24 12:40 pm (IN OFFICE APPOINTMENT) [facility] [Other] - 1 Week (*[facility] staff will come to your house daily to help with medication management. ) [facility] [Provider Group] - 1 Week (No PCP/. [facility] entered into chart.) Discharge Medications: New Uzedy 100 mg/0.28 mL Suspension,Extended Rel Syring 100 mg subcut Q30D 30 Days Qty: 0.28 0RF Continued clozapine 25 mg tablet 125 mg PO BEDTIME 30 Days Qty: 150 0RF Discharge Orders: Discharge Order (Routine); Ordered 12/21/23 Ordered By: Jr Hernandez Diet: Advance to usual diet Activity on Discharge: As tolerated Stand Alone Forms: Patient Portal Discharge page, Community Support Print Language: Nauruan Care Plan Goals: remain safe and stable in the outpatient treatment setting Health Concerns: none Plan of Treatment: take medications as prescribed, attend appointments as scheduled Assessment: not at imminent risk of harm to self or others Discharge Date/Time: 12/21/23 12:05
[2023-12-20] MEDS: cloZAPine 25 MG TABLET 125 MG PO (16:03)
[2023-12-20 20:00] VITALS: BP 133/77; PULSE 121; RESP 18; TEMP 36.7; O2SAT 95
[2023-12-20] MEDS: traZODone HCL 50 MG TABLET PO (21:06)
[2023-12-21 08:00] VITALS: BP 128/65; PULSE 98; RESP 18; TEMP 36.4; O2SAT 96
== END 2023-12-21 12:05 | disposition home or self-care (01) | DRG 885 ==
LOC: HO.ED 17:21 → HO.PADLT16 21:30
PROVIDERS: Admitting Provider Psychiatry & Neurology Psychiatry; Emergency Provider Emergency Medicine; Visit Provider Psychiatry & Neurology Psychiatry
DX: F20.9 Schizophrenia, unspecified (principal); F12.90 Cannabis use, unspecified, uncomplicated; Z91.148 Patient's other noncompliance with medication regimen for other reason; Z79.899 Other long term (current) drug therapy
CPT/HCPCS: 36415; 80053; 80159; 80307; 81003; 82565; 85025; 85048; 93005; 99285; J2799; S9485

== ENCOUNTER 2023-12-03 21:21 | Outpatient (BNV) | payer MEDICARE, SELFPAY | END 2023-12-04 08:23 | PROVIDERS: Admitting Provider Psychiatry & Neurology Psychiatry; Emergency Provider Emergency Medicine; Visit Provider Internal Medicine | DX: I45.81 Long QT syndrome (principal) | CPT/HCPCS: 93010 ==

== ENCOUNTER → 2023-12-03 21:21 | Outpatient (BNV) | payer OTHER, SELFPAY | PROVIDERS: Admitting Provider Psychiatry & Neurology Psychiatry; Emergency Provider Emergency Medicine; Visit Provider Psychiatry & Neurology Psychiatry | DX: F20.0 Paranoid schizophrenia (principal); F12.90 Cannabis use, unspecified, uncomplicated | CPT/HCPCS: 90792; 99231; 99232; 99239 ==

== ENCOUNTER 2023-12-28 12:35 | Outpatient (REF) | payer MEDICARE, SELFPAY ==
[2023-12-28 12:46] LABS: MANUAL DIFF FLAG NO
[2023-12-28 13:54] LABS: Basophils Percent Auto 0.3 % (0-2); Eosinophils Absolute Auto 0.4 X10*3/uL (0.0-0.4); Hematocrit 40.8 % (42.0-52.0); Hemoglobin 13.8 g/dl (14.0-18.0); Imm Gran Abs Auto 0.07 X10*3/uL (0.00-0.03); Imm Gran Pct Auto 0.8 % (0.0-0.4); Lymphocytes Absolute Auto 2.4 X10*3/uL (1.2-4.9); Lymphocytes Percent Auto 27.8 % (20-40); Mean Corpuscular HGB Conc 33.8 g/dl (31.0-36.0); Mean Corpuscular Hemoglobin 30.2 pg (27.0-33.0); Mean Corpuscular Volume 89.3 fL (80.0-98.0); Mean Platelet Volume 9.4 fL (9.4-12.4); Monocytes Absolute Auto 0.7 X10*3/uL (0.1-1.2); Monocytes Percent Auto 7.5 % (2-11); Neutrophils Absolute Auto 5.1 x10*3/uL (2.0-8.3); Neutrophils Percent Auto 58.6 % (45-73); Platelet Count 328 X10*3/uL (160-400); Red Blood Count 4.57 X10*6/uL (4.60-5.80); White Blood Count 8.8 X10*3/uL (4.8-10.8)
== END 2023-12-28 12:36 | disposition home or self-care (01) ==
LOC: HO.LABR 12:35
PROVIDERS: Visit Provider Psychiatry & Neurology Psychiatry
DX: Z79.899 Other long term (current) drug therapy (principal)
CPT/HCPCS: 36415; 85025

== ENCOUNTER 2024-01-17 16:22 | Outpatient (REF) | payer MEDICARE, SELFPAY ==
[2024-01-17 16:31] LABS: MANUAL DIFF FLAG NO
[2024-01-17 16:44] LABS: Basophils Percent Auto 0.2 % (0-2); Eosinophils Absolute Auto 0.3 X10*3/uL (0.0-0.4); Eosinophils Percent Auto 4.2 % (0-4); Hematocrit 42.3 % (42.0-52.0); Hemoglobin 14.4 g/dl (14.0-18.0); Imm Gran Abs Auto 0.05 X10*3/uL (0.00-0.03); Imm Gran Pct Auto 0.6 % (0.0-0.4); Lymphocytes Absolute Auto 2.7 X10*3/uL (1.2-4.9); Lymphocytes Percent Auto 33.2 % (20-40); Mean Corpuscular Hemoglobin 30.8 pg (27.0-33.0); Mean Corpuscular Volume 90.6 fL (80.0-98.0); Mean Platelet Volume 9.4 fL (9.4-12.4); Monocytes Absolute Auto 0.6 X10*3/uL (0.1-1.2); Monocytes Percent Auto 7.5 % (2-11); Neutrophils Absolute Auto 4.4 x10*3/uL (2.0-8.3); Neutrophils Percent Auto 54.3 % (45-73); Platelet Count 310 X10*3/uL (160-400); Red Blood Count 4.67 X10*6/uL (4.60-5.80); Red Cell Distribution Width 13.4 % (11.0-16.0); White Blood Count 8.2 X10*3/uL (4.8-10.8)
== END 2024-01-17 16:23 | disposition home or self-care (01) ==
LOC: HO.LABR 16:22
PROVIDERS: Visit Provider Psychiatry & Neurology Psychiatry
DX: Z79.899 Other long term (current) drug therapy (principal)
CPT/HCPCS: 36415; 85025

== ENCOUNTER 2024-01-28 07:46 | Outpatient (REF) | payer MEDICARE, SELFPAY ==
[2024-01-28 08:05] LABS: MANUAL DIFF FLAG NO
[2024-01-28 08:37] LABS: Basophils Percent Auto 0.4 % (0-2); Eosinophils Absolute Auto 0.4 X10*3/uL (0.0-0.4); Eosinophils Percent Auto 4.9 % (0-4); Hematocrit 41.3 % (42.0-52.0); Hemoglobin 13.6 g/dl (14.0-18.0); Imm Gran Abs Auto 0.03 X10*3/uL (0.00-0.03); Imm Gran Pct Auto 0.4 % (0.0-0.4); Lymphocytes Percent Auto 36.1 % (20-40); Mean Corpuscular HGB Conc 32.9 g/dl (31.0-36.0); Mean Platelet Volume 9.7 fL (9.4-12.4); Monocytes Absolute Auto 0.7 X10*3/uL (0.1-1.2); Monocytes Percent Auto 8.1 % (2-11); Neutrophils Absolute Auto 4.1 x10*3/uL (2.0-8.3); Neutrophils Percent Auto 50.1 % (45-73); Platelet Count 285 X10*3/uL (160-400); Red Blood Count 4.54 X10*6/uL (4.60-5.80); Red Cell Distribution Width 13.2 % (11.0-16.0); White Blood Count 8.2 X10*3/uL (4.8-10.8)
== END 2024-01-28 07:47 | disposition home or self-care (01) ==
LOC: HO.LAB 07:46
PROVIDERS: PCP Pediatrics; Visit Provider Psychiatry & Neurology Psychiatry
DX: Z79.899 Other long term (current) drug therapy (principal); F20.9 Schizophrenia, unspecified
CPT/HCPCS: 36415; 85025

== ENCOUNTER 2024-02-10 16:40 | Outpatient (REF) | payer MEDICARE, SELFPAY ==
[2024-02-10 16:52] LABS: MANUAL DIFF FLAG NO
[2024-02-10 17:02] LABS: Basophils Percent Auto 0.3 % (0-2); Eosinophils Absolute Auto 0.4 X10*3/uL (0.0-0.4); Eosinophils Percent Auto 4.1 % (0-4); Hematocrit 39.8 % (42.0-52.0); Hemoglobin 13.6 g/dl (14.0-18.0); Imm Gran Abs Auto 0.04 X10*3/uL (0.00-0.03); Imm Gran Pct Auto 0.4 % (0.0-0.4); Lymphocytes Absolute Auto 3.3 X10*3/uL (1.2-4.9); Lymphocytes Percent Auto 34.5 % (20-40); Mean Corpuscular HGB Conc 34.2 g/dl (31.0-36.0); Mean Corpuscular Hemoglobin 30.6 pg (27.0-33.0); Mean Corpuscular Volume 89.6 fL (80.0-98.0); Mean Platelet Volume 9.2 fL (9.4-12.4); Monocytes Absolute Auto 0.7 X10*3/uL (0.1-1.2); Monocytes Percent Auto 6.9 % (2-11); Neutrophils Absolute Auto 5.2 x10*3/uL (2.0-8.3); Neutrophils Percent Auto 53.8 % (45-73); Platelet Count 333 X10*3/uL (160-400); Red Blood Count 4.44 X10*6/uL (4.60-5.80); Red Cell Distribution Width 13.2 % (11.0-16.0); White Blood Count 9.7 X10*3/uL (4.8-10.8)
== END 2024-02-10 16:41 | disposition home or self-care (01) ==
LOC: HO.LABR 16:40
PROVIDERS: PCP Pediatrics; Visit Provider Psychiatry & Neurology Psychiatry
DX: Z79.899 Other long term (current) drug therapy (principal)
CPT/HCPCS: 36415; 85025

== ENCOUNTER 2024-03-28 16:41 | Outpatient (REF) | payer MEDICARE, SELFPAY ==
[2024-03-28 17:15] LABS: MANUAL DIFF FLAG NO
[2024-03-28 17:30] LABS: Basophils Percent Auto 0.4 % (0-2); Eosinophils Absolute Auto 0.3 X10*3/uL (0.0-0.4); Eosinophils Percent Auto 4.1 % (0-4); Hemoglobin 14.4 g/dl (14.0-18.0); Imm Gran Abs Auto 0.01 X10*3/uL (0.00-0.03); Imm Gran Pct Auto 0.1 % (0.0-0.4); Lymphocytes Absolute Auto 2.7 X10*3/uL (1.2-4.9); Lymphocytes Percent Auto 33.3 % (20-40); Mean Corpuscular HGB Conc 34.3 g/dl (31.0-36.0); Mean Corpuscular Hemoglobin 30.5 pg (27.0-33.0); Mean Platelet Volume 9.5 fL (9.4-12.4); Monocytes Absolute Auto 0.7 X10*3/uL (0.1-1.2); Monocytes Percent Auto 8.4 % (2-11); Neutrophils Absolute Auto 4.3 x10*3/uL (2.0-8.3); Neutrophils Percent Auto 53.7 % (45-73); Platelet Count 296 X10*3/uL (160-400); Red Blood Count 4.72 X10*6/uL (4.60-5.80); Red Cell Distribution Width 12.7 % (11.0-16.0)
== END 2024-03-28 16:42 | disposition home or self-care (01) ==
LOC: HO.LABR 16:41
PROVIDERS: Visit Provider Psychiatry & Neurology Psychiatry
DX: Z79.899 Other long term (current) drug therapy (principal)
CPT/HCPCS: 36415; 85025

== ENCOUNTER 2024-04-10 14:19 | Outpatient (REF) | payer MEDICARE, SELFPAY | END 2024-04-10 14:20 | disposition home or self-care (01) | LOC: HO.LABR 14:19 | PROVIDERS: Visit Provider Psychiatry & Neurology Psychiatry | DX: Z13.89 Encounter for screening for other disorder (principal) ==

== ENCOUNTER 2024-04-19 12:20 | Outpatient (REF) | payer MEDICARE, SELFPAY ==
[2024-04-19 12:38] LABS: MANUAL DIFF FLAG NO
[2024-04-19 12:58] LABS: Basophils Percent Auto 0.3 % (0-2); Eosinophils Absolute Auto 0.5 X10*3/uL (0.0-0.4); Eosinophils Percent Auto 4.6 % (0-4); Hematocrit 41.4 % (42.0-52.0); Imm Gran Abs Auto 0.05 X10*3/uL (0.00-0.03); Imm Gran Pct Auto 0.5 % (0.0-0.4); Lymphocytes Absolute Auto 2.8 X10*3/uL (1.2-4.9); Lymphocytes Percent Auto 27.2 % (20-40); Mean Corpuscular HGB Conc 33.8 g/dl (31.0-36.0); Mean Corpuscular Hemoglobin 29.9 pg (27.0-33.0); Mean Corpuscular Volume 88.5 fL (80.0-98.0); Mean Platelet Volume 9.5 fL (9.4-12.4); Monocytes Absolute Auto 0.8 X10*3/uL (0.1-1.2); Monocytes Percent Auto 7.6 % (2-11); Neutrophils Absolute Auto 6.3 x10*3/uL (2.0-8.3); Neutrophils Percent Auto 59.8 % (45-73); Platelet Count 314 X10*3/uL (160-400); Red Blood Count 4.68 X10*6/uL (4.60-5.80); White Blood Count 10.4 X10*3/uL (4.8-10.8)
== END 2024-04-19 12:21 | disposition home or self-care (01) ==
LOC: HO.LABR 12:20
PROVIDERS: PCP Pediatrics
DX: Z79.899 Other long term (current) drug therapy (principal)
CPT/HCPCS: 36415; 85025

== ENCOUNTER 2024-05-03 10:22 | Outpatient (REF) | payer MEDICARE, SELFPAY ==
[2024-05-03 10:57] LABS: MANUAL DIFF FLAG NO
[2024-05-03 11:32] LABS: Basophils Percent Auto 0.4 % (0-2); Eosinophils Absolute Auto 0.4 X10*3/uL (0.0-0.4); Eosinophils Percent Auto 4.1 % (0-4); Hematocrit 41.6 % (42.0-52.0); Hemoglobin 13.9 g/dl (14.0-18.0); Imm Gran Abs Auto 0.06 X10*3/uL (0.00-0.03); Imm Gran Pct Auto 0.6 % (0.0-0.4); Lymphocytes Absolute Auto 2.8 X10*3/uL (1.2-4.9); Lymphocytes Percent Auto 25.8 % (20-40); Mean Corpuscular HGB Conc 33.4 g/dl (31.0-36.0); Mean Corpuscular Hemoglobin 29.8 pg (27.0-33.0); Mean Corpuscular Volume 89.3 fL (80.0-98.0); Mean Platelet Volume 9.8 fL (9.4-12.4); Monocytes Absolute Auto 0.8 X10*3/uL (0.1-1.2); Monocytes Percent Auto 7.7 % (2-11); Neutrophils Absolute Auto 6.7 x10*3/uL (2.0-8.3); Neutrophils Percent Auto 61.4 % (45-73); Platelet Count 298 X10*3/uL (160-400); Red Blood Count 4.66 X10*6/uL (4.60-5.80); Red Cell Distribution Width 13.1 % (11.0-16.0); White Blood Count 10.9 X10*3/uL (4.8-10.8)
--- OUTSIDE RECORDS SUMMARY | 2024-05-09 17:38 | XMS_ITS | Clinical Summary ---
Author Organization Unknown Care Team Providers Care Snow Plow Tractor Operator Name Role Phone JERARDO DUNN, CHON Unavailable Unavailable MILY GREY, YANIQUE Unavailable Unavailable Payers Payer Name Policy Type Policy Number Effective Date Expira tion Date [facility] ADV [id number] MEDICAID [facility] [id number] [facility] PRO[facility] [id number] MEDICARE - [facility]/[place] - PD [id number] Problems Condition Name Condition Details Condition Category Status Onset Date Resolution Date Last Treatment Date Treating Clinician Comments SCHIZOPHRENI A, UNSPECIFIED Active 2022-05 00:00: 00 Allergies, Adverse Reactions, Alerts Allergy Name Allergy Type Status Severity Reaction(s) Onset Date Inactive Date Treating Clinician Comments PENICILLIN ANALOGS Propensity to adverse reactions Active 2022-05 09:26: 13 Medications Ordered Medication Name Filled Medication Name Start Date Stop Date Current Medication? Ordering Clinician Indication Dosage Frequency Signature (SIG) Comments Components diazepam 10 mg tablet 09-13 00:00: 00 06-12 23:59 :00 No [id number] 10 mg 2 TIMES DAILY 10 mg 2 TIMES DAILY (route: oral) Med Classific ation: Central Nervous System Agents Risperdal Consta 50 mg/2 mL intramuscul ar susp,extend ed release 10-05 00:00: 00 06-12 23:59 :00 No [id number] 50 mg EVERY OTHER WEEK 50 mg EVERY OTHER WEEK (route: intramuscu lar) Med Classific ation: Central Nervous System Agents Flomax 0.4 mg capsule 09-13 00:00: 00 06-12 23:59 :00 No [id number] 0.4 mg DAILY 0.4 mg DAILY (route: oral) Med Classific ation: Genitouri nary Therapy oxcarbazepi ne 150 mg tablet 2019-05 00:00: 00 06-12 23:59 :00 No [id number] 150 mg 2 TIMES DAILY 150 mg 2 TIMES DAILY (route: oral) Med Classific ation: Central Nervous System Agents propranolol 10 mg tablet -13 00:00: 00 12-10 23:59 :00 No [id number] 10 mg 3 TIMES DAILY 10 mg 3 TIMES DAILY (route: oral) Med Classific ation: Cardiovas cular Therapy Agents Zyprexa 10 mg tablet -13 00:00: 00 07-08 23:59 :00 No [id number] 25 mg DAILY 25 mg DAILY (route: oral) Med Classific ation: Central Nervous System Agents propranolol 10 mg tablet - 00:00: 00 03-01 23:59 :00 No [id number] 10 mg 2 TIMES DAILY 10 mg 2 TIMES DAILY (route: oral) Med Classific ation: Cardiovas cular Therapy Agents Zoloft 50 mg tablet 2-08 00:00: 00 03-01 23:59 :00 No [id number] 50 mg DAILY 50 mg DAILY (route: oral) Med Classific ation: Central Nervous System Agents Zyprexa 20 mg tablet 2-08 00:00: 00 03-01 23:59 :00 No [id number] 20 mg DAILY 20 mg DAILY (route: oral) Med Classific ation: Central Nervous System Agents olanzapine 20 mg tablet 2022-05 2- 00:00: 00 08-09 23:59 :00 No [id number] 1 tablet DAILY 1 tablet DAILY (route: oral) Med Classific ation: Central Nervous System Agents propranolol 10 mg tablet 2022-05 2-03 00:00: 00 08-09 23:59 :00 No [id number] 1 tablet 2 TIMES DAILY 1 tablet 2 TIMES DAILY (route: oral) Med Classific ation: Cardiovas cular Therapy Agents sertraline 50 mg tablet 2022-05 2-03 00:00: 00 08-09 23:59 :00 No [id number] 1 tablet DAILY 1 tablet DAILY (route: oral) Med Classific ation: Central Nervous System Agents Vital Signs Vital Name Observation Time Observation Value Commen ts Temperature 2023-05-02 09:26:00.000 98.6 [degF] BMI (%) 2023-05-02 09:17:27.000 42 kg/m2 Height 2023-05-02 09:16:53.000 69 [in_us] Pulse 2023-05-02 09:26:00.000 80 /min O2 Saturation (%) 2023-05-02 09:27:00.000 98 % Respirations 2023-05-02 09:26:00.000 20 /min Weight (lbs) 2023-05-02 09:17:27.000 290 [lb_av] Systolic Blood Pressure 2023-05-02 09:31:00.000 140 mm [Hg] Diastolic Blood Pressure 2023-05-02 09:31:00.000 70 mm [Hg] Plan of Treatment Planned Activity Planned Date Details Comments Future Scheduled Test SKILLED NU RSE TO EVALUATE PATIENT, IDENTIFY PRIMARY AND CO-MORBID CONDITIONS CODED PER CODING GUIDELINES, AND DEVELOP PATIENT SPECIFIC PLAN OF CARE THAT INCLUDES PATIENT GOAL FOR HOME HEALTH. [code = SKILLED NURSE TO EVALUATE PATIENT, IDENTIFY PRIMARY AND CO-MORBID CONDITIONS CODED PER CODING GUIDELINES, AND DEVELOP PATIENT SPECIFIC PLAN OF CARE THAT INCLUDES PATIENT GOAL FOR HOME HEALTH.] Future Scheduled Test SKILLED NU RSE TO O/A OF PATIENTS MENTAL/BEHAVIORAL STATUS, ASSESS VITAL SIGNS 3WK8 ALLOW 2 PRNS FOR MEDICATION MANAGEMENT. [code = SKILLED NURSE TO O/A OF PATIENTS MENTAL/BEHAVIORAL STATUS, ASSESS VITAL SIGNS 3WK8 ALLOW 2 PRNS FOR MEDICATION MANAGEMENT.] Future Scheduled Test SKILLED NU RSE FOR O/A OF GENERAL HEALTH STATUS OF PAIN, CARDIAC, RESPIRATORY, GASTROINTESTINAL, GENITOURINARY, SKIN, NEUROLOGIC, ENDOCRINE SYSTEMS TO IDENTIFY CHANGES ASSOCIATED WITH EXACERBATION FOR EARLY INTERVENTION OF COMPLICATIONS 3WK8 [code = SKILLED NURSE FOR O/A OF GENERAL HEALTH STATUS OF PAIN, CARDIAC, RESPIRATORY, GASTROINTESTINAL, GENITOURINARY, SKIN, NEUROLOGIC, ENDOCRINE SYSTEMS TO IDENTIFY CHANGES ASSOCIATED WITH EXACERBATION FOR EARLY INTERVENTION OF COMPLICATIONS 3WK8 ] Future Scheduled Test SKILLED NU RSE FOR O/A OF PATIENT'S RISK FOR VIOLENCE (TOWARD SELF OR OTHERS) AND TO PROVIDE INTERVENTION TECHNIQUES TO PROMOTE SAFETY TO PATIENT AND OTHERS [code = SKILLED NURSE FOR O/A OF PATIENT'S RISK FOR VIOLENCE (TOWARD SELF OR OTHERS) AND TO PROVIDE INTERVENTION TECHNIQUES TO PROMOTE SAFETY TO PATIENT AND OTHERS] Goal 2023-05-19 Patient Goal - P ATIENT EXPRESSES GOAL OF ACHIEVING STABI,ITY AND FEELING MORE NORMAL. Goal Provider Goal - A PLAN OF CARE WILL BE ESTABLISHED THAT MEETS PATIENT'S ASSISTED NEEDS AND INCLUDES PATIENT GOAL FOR HOME HEALTH. Goal Provider Goal - ALTERED MENTAL/BEHAVIORAL STATUS WILL BE IDENTIFIED PROMPTLY AND INTERVENTION INITIATED QUICKLY TO MINIMIZE ASSOCIATED RISKS Goal Provider Goal - CHANGE IN GENERAL HEALTH STATUS WILL BE IDENTIFIED AND REPORTED TO PHYSICIAN FOR PROMPT INTERVENTION TO MINIMIZE ASSOCIATED RISKS THROUGHOUT CERTIFICATION PERIOD. Goal Provider Goal - PATIENT WILL REMAIN SAFE IN COMMUNITY WITHOUT EVIDENCE OF INJURY/HARM TO SELF OR OTHERS Reason for Visit INDEPENDENT IN THE COMMUNITY Encounters Start Date/Time End Date/Time Encounter Type Admission Type Attending [facility] Care Department Encounter ID Discharge Date Discharge Status Discharge Condition Discharge Reason Percent Goals Met 2023-05-02 00:00:00 2023-05-19 00:00:00 Outpatient YANIQUE [facility] [id number] 2023-05-19 00:00:00 DISCHARGE TO HOME OR SELF CARE INDEPENDEN T IN THE COMMUNITY PER FAMILY REQUEST 100.00
== END 2024-05-03 10:23 | disposition home or self-care (01) ==
LOC: HO.LABR 10:22
DX: Z79.899 Other long term (current) drug therapy (principal)
CPT/HCPCS: 36415; 85025

== ENCOUNTER 2024-05-17 13:52 | Outpatient (REF) | payer MEDICARE, SELFPAY ==
[2024-05-17 14:05] LABS: MANUAL DIFF FLAG NO
[2024-05-17 14:52] LABS: Basophils Percent Auto 0.5 % (0-2); Eosinophils Absolute Auto 0.4 X10*3/uL (0.0-0.4); Hemoglobin 13.7 g/dl (14.0-18.0); Imm Gran Abs Auto 0.04 X10*3/uL (0.00-0.03); Imm Gran Pct Auto 0.5 % (0.0-0.4); Lymphocytes Absolute Auto 2.5 X10*3/uL (1.2-4.9); Mean Corpuscular HGB Conc 34.3 g/dl (31.0-36.0); Mean Corpuscular Hemoglobin 30.4 pg (27.0-33.0); Mean Corpuscular Volume 88.7 fL (80.0-98.0); Mean Platelet Volume 9.9 fL (9.4-12.4); Monocytes Absolute Auto 0.6 X10*3/uL (0.1-1.2); Monocytes Percent Auto 7.4 % (2-11); Neutrophils Absolute Auto 4.9 x10*3/uL (2.0-8.3); Neutrophils Percent Auto 57.6 % (45-73); Platelet Count 289 X10*3/uL (160-400); Red Blood Count 4.51 X10*6/uL (4.60-5.80); Red Cell Distribution Width 13.1 % (11.0-16.0); White Blood Count 8.5 X10*3/uL (4.8-10.8)
== END 2024-05-17 13:53 | disposition home or self-care (01) ==
LOC: HO.LABR 13:52
PROVIDERS: PCP Pediatrics
DX: Z79.899 Other long term (current) drug therapy (principal)
CPT/HCPCS: 36415; 85025

== ENCOUNTER 2024-06-01 15:38 | Outpatient (REF) | payer MEDICARE, SELFPAY ==
[2024-06-01 15:58] LABS: MANUAL DIFF FLAG NO
[2024-06-01 16:19] LABS: Basophils Percent Auto 0.4 % (0-2); Eosinophils Absolute Auto 0.3 X10*3/uL (0.0-0.4); Eosinophils Percent Auto 4.1 % (0-4); Hematocrit 40.8 % (42.0-52.0); Hemoglobin 13.8 g/dl (14.0-18.0); Imm Gran Abs Auto 0.02 X10*3/uL (0.00-0.03); Imm Gran Pct Auto 0.3 % (0.0-0.4); Lymphocytes Absolute Auto 2.5 X10*3/uL (1.2-4.9); Lymphocytes Percent Auto 33.2 % (20-40); Mean Corpuscular HGB Conc 33.8 g/dl (31.0-36.0); Mean Corpuscular Hemoglobin 30.4 pg (27.0-33.0); Mean Corpuscular Volume 89.9 fL (80.0-98.0); Mean Platelet Volume 9.5 fL (9.4-12.4); Monocytes Absolute Auto 0.4 X10*3/uL (0.1-1.2); Monocytes Percent Auto 5.7 % (2-11); Neutrophils Absolute Auto 4.3 x10*3/uL (2.0-8.3); Neutrophils Percent Auto 56.3 % (45-73); Platelet Count 311 X10*3/uL (160-400); Red Blood Count 4.54 X10*6/uL (4.60-5.80); Red Cell Distribution Width 13.1 % (11.0-16.0); White Blood Count 7.6 X10*3/uL (4.8-10.8)
== END 2024-06-01 15:39 | disposition home or self-care (01) ==
LOC: HO.LAB 15:38
PROVIDERS: PCP Pediatrics; Visit Provider Pediatrics
DX: Z79.899 Other long term (current) drug therapy (principal)
CPT/HCPCS: 36415; 85025

== ENCOUNTER 2024-06-15 11:56 | Outpatient (REF) | payer MEDICARE, SELFPAY ==
[2024-06-15 12:25] LABS: MANUAL DIFF FLAG NO
[2024-06-15 13:17] LABS: Basophils Percent Auto 0.3 % (0-2); Eosinophils Absolute Auto 0.5 X10*3/uL (0.0-0.4); Eosinophils Percent Auto 5.1 % (0-4); Imm Gran Abs Auto 0.03 X10*3/uL (0.00-0.03); Imm Gran Pct Auto 0.3 % (0.0-0.4); Lymphocytes Percent Auto 19.3 % (20-40); Mean Corpuscular HGB Conc 33.3 g/dl (31.0-36.0); Mean Corpuscular Hemoglobin 30.1 pg (27.0-33.0); Mean Corpuscular Volume 90.3 fL (80.0-98.0); Mean Platelet Volume 9.8 fL (9.4-12.4); Monocytes Absolute Auto 0.7 X10*3/uL (0.1-1.2); Monocytes Percent Auto 7.3 % (2-11); Neutrophils Absolute Auto 6.9 x10*3/uL (2.0-8.3); Neutrophils Percent Auto 67.7 % (45-73); Platelet Count 285 X10*3/uL (160-400); Red Blood Count 4.65 X10*6/uL (4.60-5.80); White Blood Count 10.1 X10*3/uL (4.8-10.8)
--- OUTSIDE RECORDS SUMMARY | 2024-06-15 15:12 | XMS_ITS | Clinical Summary ---
Author Organization Unknown Care Team Providers Care Forest Scientist Name Role Phone JERARDO DUNN, CHON Unavailable Unavailable MILY GREY, YANIQUE Unavailable Unavailable Payers Payer Name Policy Type Policy Number Effective Date Expira tion Date [facility] ADV [id number] MEDICAID [facility] [id number] [facility] [id number] MEDICARE - [facility]/[place] - PD [id number] Problems Condition Name Condition Details Condition Category [...] 09-13 00:00: 00 06-12 23:59 :00 No [id number] 10 mg 2 TIMES DAILY 10 mg 2 TIMES DAILY (route: oral) Med Classific ation: Central Nervous System Agents Risperdal Consta 50 mg/2 mL intramuscul ar susp,extend ed release 10-05 00:00: 00 06-12 23:59 :00 No [id number] 50 mg EVERY OTHER WEEK 50 mg EVERY OTHER WEEK (route: intramuscu lar) Med Classific ation: Central Nervous System Agents Flomax 0.4 mg capsule 09-13 00:00: 00 06-12 23:59 :00 No [id number] 0.4 mg DAILY 0.4 mg DAILY (route: oral) Med Classific ation: Genitouri nary Therapy oxcarbazepi ne 150 mg tablet 2019-05 00:00: 00 06-12 23:59 :00 No [id number] 150 mg 2 TIMES DAILY 150 mg 2 TIMES DAILY (route: oral) Med Classific ation: Central Nervous System Agents propranolol 10 mg tablet -13 00:00: 00 12-10 23:59 :00 No [id number] 10 mg 3 TIMES DAILY 10 mg 3 TIMES DAILY (route: oral) Med Classific ation: Cardiovas cular Therapy Agents Zyprexa 10 mg tablet -13 00:00: 00 07-08 23:59 :00 No [id number] 25 mg DAILY 25 mg DAILY (route: oral) Med Classific ation: Central Nervous System Agents propranolol 10 mg tablet - 00:00: 00 03-01 23:59 :00 No [id number] 10 mg 2 TIMES DAILY 10 mg 2 TIMES DAILY (route: oral) Med Classific ation: Cardiovas cular Therapy Agents Zoloft 50 mg tablet 2-08 00:00: 00 03-01 23:59 :00 No [id number] 50 mg DAILY 50 mg DAILY (route: oral) Med Classific ation: Central Nervous System Agents Zyprexa 20 mg tablet 2-08 00:00: 00 03-01 23:59 :00 No [id number] 20 mg DAILY 20 mg DAILY (route: oral) Med Classific ation: Central Nervous System Agents olanzapine 20 mg tablet 2022-05 2- 00:00: 00 08-09 23:59 :00 No [id number] 1 tablet DAILY 1 tablet DAILY (route: oral) Med Classific ation: Central Nervous System Agents propranolol 10 mg tablet 2022-05 2-03 00:00: 00 08-09 23:59 :00 No [id number] 1 tablet 2 TIMES DAILY 1 tablet 2 TIMES DAILY (route: oral) Med Classific ation: Cardiovas cular Therapy Agents sertraline 50 mg tablet 2022-05 2-03 00:00: 00 08-09 23:59 :00 No [id number] 1 tablet DAILY 1 tablet DAILY (route: [...] End Date/Time Encounter Type Admission Type Attending [facility] Care Department Encounter ID Discharge Date Discharge Status Discharge Condition Discharge Reason Percent Goals Met 2023-05-02 00:00:00 2023-05-19 00:00:00 Outpatient YANIQUE [facility] [id number] 2023-05-19 00:00:00 DISCHARGE TO HOME OR SELF CARE INDEPENDEN T IN THE COMMUNITY PER FAMILY REQUEST 100.00
== END 2024-06-15 11:57 | disposition home or self-care (01) ==
LOC: HO.LABR 11:56
PROVIDERS: PCP Pediatrics
DX: Z79.899 Other long term (current) drug therapy (principal)
CPT/HCPCS: 36415; 85025

== ENCOUNTER 2024-06-27 12:05 | Outpatient (REF) | payer MEDICARE, SELFPAY ==
[2024-06-27 12:24] LABS: MANUAL DIFF FLAG NO
[2024-06-27 12:33] LABS: Basophils Percent Auto 0.2 % (0-2); Eosinophils Absolute Auto 0.5 X10*3/uL (0.0-0.4); Eosinophils Percent Auto 5.2 % (0-4); Hematocrit 41.7 % (42.0-52.0); Hemoglobin 14.3 g/dl (14.0-18.0); Imm Gran Abs Auto 0.04 X10*3/uL (0.00-0.03); Imm Gran Pct Auto 0.4 % (0.0-0.4); Lymphocytes Absolute Auto 2.8 X10*3/uL (1.2-4.9); Lymphocytes Percent Auto 30.3 % (20-40); Mean Corpuscular HGB Conc 34.3 g/dl (31.0-36.0); Mean Corpuscular Hemoglobin 30.6 pg (27.0-33.0); Mean Corpuscular Volume 89.3 fL (80.0-98.0); Mean Platelet Volume 9.4 fL (9.4-12.4); Monocytes Absolute Auto 0.7 X10*3/uL (0.1-1.2); Monocytes Percent Auto 7.3 % (2-11); Neutrophils Absolute Auto 5.2 x10*3/uL (2.0-8.3); Neutrophils Percent Auto 56.6 % (45-73); Platelet Count 316 X10*3/uL (160-400); Red Blood Count 4.67 X10*6/uL (4.60-5.80); Red Cell Distribution Width 13.1 % (11.0-16.0); White Blood Count 9.3 X10*3/uL (4.8-10.8)
--- OUTSIDE RECORDS SUMMARY | 2024-06-27 13:05 | XMS_ITS | Encounter Summary ---
Author Organization [facility] Address [address] [place] [id number] Care Team Providers Care X Ray Tech Name Role Phone Oneil Morton MD Primary Care Provider [phone] Reason for Visit * Reason Onset Date Comments Prior auth 06/22/2024 Prior auth Encounter Details Date Type Department Care Team (Late st Contact Info) Description 06/22/2024 Telephone Bariat[facility] Surgery [place] [address] [phone] Tami Herman MD [address] [id number] Prior auth (Prior auth) Social History Tobacco Use Types Packs/Day Years Used Date Smoking Tobacco: Never Assessed Sex and Gender Information Value Date Recorded Sex Assigned at Not on file Gender Identity Not on file Sexual Orientation Not on file Job Start Date Occupation Industry Not on file Not on file Not on file documented as of this encounter Progress Notes * Valery Ansari - 06/22/2024 12:57 PM EST Patient needs a PA documented in this encounter Plan of Treatment Upcoming Encounters Date Type Department Care Team (Late st Contact Info) Description 06/30/2024 11:00 AM EST Appointment [facility] Ultrasound [address] [place] [id number] 10/17/2024 1:45 PM EDT Office Visit Bariatric Surgery - [place] [address] [phone] Tami Herman MD [address] [id number] documented as of this encounter Visit Diagnoses Not on filedocumented in this encounter Care Teams X Ray Tech Relationship Specialty Start Date End Date Oneil Morton MD [address] [place] [address] PCP - General Pediatrics 05/12/24 documented as of this encounter
--- OUTSIDE RECORDS SUMMARY | 2024-06-27 13:05 | XMS_ITS ---
Author Name Pao RANI, MS. [facility] Address [address] [place] [address] Phone [phone] [facility] Care Team Providers Care Cooperative Education Coordinator Name Role Phone [facility] Unavailable [phone] Unavailable Unavailable Unavailable Unavailable Unavailable Unavailable Reason for Referral Not Available Allergies, adverse reactions, alerts Allergen Type Reaction Severity Status Onset Date Penicillin Allergy to substance (disorder) hives Unknown Active N/A History of medication use Medication Class Instructions Start Date End Date OLANZapine 20 mg Tab 1 tablet orally daily at night 22-05-22 No Data Available Problem List Problem Status Onset Date Resolved Date morbid (severe) obesity d/t excess caloriesBody mass index 45.0-49.9 Active 2023-05-21 N/A Hallucination with schizophrenia Active N/A [facility] Active 2023-08-06 N/A Encounters Encounters Type Facility Date of Service Diagnosis/Co mplaint New patient, 30-44min 1 stable chronic or 2 minor; add modifier 95 for video, modifier 93 for phone [facility], ([place]) 05/[place]/2023 Obesity, unspecifiedBody mas s index (BMI) 45.0-49.9, adultHallucinations, unspecified New patient, 30-44min 1 stable chronic or 2 minor; add modifier 95 for video, modifier 93 for phone [facility], [place] 05/21/2023 New patient, 30-44min 1 stable chronic or 2 minor; add modifier 95 for video, modifier 93 for [facility], [place] 05/21/2023 New patient, 30-44min 1 stable chronic or 2 minor; add modifier 95 for video, modifier 93 for phone [facility], ([place] 05/21/2023 No Data Available [facility], [place]) 10/05/2023 Other specified counseling Estab. patient 30-39min; chronic exacerbation, 2 stable chronic or 1 acute illness add add modifier 95 for video, (do not use for phone, instead use [id number]) [facility] ([place]) 02/08/2024 Morbid (severe) obesity due to excess caloriesBody mass index (BMI) 45.0-49.9, adultSchizophrenia, unspecifiedOther problems related to medical facilities and other health care Estab. patient 30-39min; chronic exacerbation, 2 stable chronic or 1 acute illness add add modifier 95 for video, (do not use for phone, instead use [id number]) [facility] ([place]) 02/08/2024 Estab. patient 30-39min; chronic exacerbation, 2 stable chronic or 1 acute illness add add modifier 95 for video, (do not use for phone, instead use [id number]) [facility] ([place]) 02/08/2024 Estab. patient 30-39min; chronic exacerbation, 2 stable chronic or 1 acute illness add add modifier 95 for video, (do not use for phone, instead use [id number]) [facility] ([place] 02/08/2024 Estab. patient 30-39min; chronic exacerbation, 2 stable chronic or 1 acute illness add add modifier 95 for video, (do not use for phone, instead use [id number]) [facility] ([place]) 02/08/2024 Estab. patient 30-39min; chronic exacerbation, 2 stable chronic or 1 acute illness add add modifier 95 for video, (do not use for phone, instead use [id number]) [facility] ([place]) 02/08/2024 Vital Signs Date of Collection Vitals 2023-05-21 15:01:35 Height - 175.26 cmWe ight - 142.88 kgBody Mass Index (BMI) - 46.52 kg/m2 2024-02-08 07:53:09 Height - 175.26 cmWe ight - 143.34 kgBody Mass Index (BMI) - 46.67 kg/m2BP Diastolic - 64.0 mm[Hg]BP Systolic - 118.0 mm[Hg] Social History Social History Social History Observation Description Effec tive Time Current Smoking Status Never smoker 2024-06-01 7 Sex Male History of Procedures Procedures Service Procedure code Service date Servicing provider Phone# New patient, 30-44min 1 stable chronic or 2 minor; add modifier 95 for video, modifier 93 for phone [id number] 2023-05-21 No Data Available No Data Availa ble Medication List Documented (1159F) 1159F 2023-05-21 No Data Available No Data Shyanne ilable Functional Status Assessed (1170F) 1170F 2023-05-21 No Data Available No Data Avail able BMI obtained (3008F) 3008F 2023-05-21 No Data Availab le No Data Available No Data Available [id number] 2023-10-05 No Data Available No Data Available Estab. patient 30-39min; chronic exacerbation, 2 stable chronic or 1 acute illness add add modifier 95 for video, (do not use for phone, instead use [id number]) [id number] 2024-02-08 No Data Available No Data Availa ble Medication List Documented (1159F) 1159F 2024-02-08 No Data Available No Data Shyanne ilable Functional Status Assessed (1170F) 1170F 2024-02-08 No Data Available No Data Avail able BMI obtained (3008F) 3008F 2024-02-08 No Data Availab le No Data Available SBP < 130 (3074F) 3074F 2024-02-08 No Data Available No Data Available DBP <80 (3078F) 3078F 2024-02-08 No Data Available No Data Available Functional Status Functional Category Effective Dates independent w ADLS 2023-05-21 Mental Status Status Date A/O x 3 2023-05-21 Assessments Date of Service Assessments 2023-05-21 15:01:35 Obesity without seri ous comorbidity, unspecified classification, unspecified obesity typeHallucination 2024-02-08 07:53:09 Other problems relat ed to medical facilities and other health caremorbid (severe) obesity d/t excess caloriesBody mass index 45.0-49.9Hallucination with schizophreniaOther problems related to medical facilities and other health care Plan of Care Date of Service Plans 2023-05-21 15:01:35 BMI obtained (3008F) SBPDBPTelevideo new patient, 30-44min 1 stable chronic or 2 minor; add modifier 95Continue to see PCP. Follow-up with [facility] as needed for any acute or disease education needs that may arise 21/12.bmi 46.5takes olazepine and sees psychiatry q 2 weeks Hx schizophrenia 2023-10-05 14:49:41 Phone (patient, ivettee nt, or guardian); 5-10 minutes of medical discussion (no modifier 95)Continue to see PCP. Follow-up with [facility] as needed for any acute or disease education needs that may arise 21/12. 2024-02-08 07:53:09 Televideo 30-39min; chronic exacerbation, 2 stable chronic or 1 acute illness add modifier 95Functional Status Assessed (1170F)Pain Assessment - NO pain documented (1126F)BMI obtained (3008F)Continue to see PCP. Follow-up with [facility] as needed for any acute or disease education needs that may arise.<Add contingency plans here>bmi 46.5encourage healthy food choicesexercise as toleratedtakes olazepine and sees psychiatry q 2 weeks schizophrenia with hallucinationsPlease call CB ifChange in mental state, unusual agitation,worsening hallucinations. Goals Date Goal 2024-02-08 Please call [facility] for a ll non-emergent care issues, prior to going to the ER. Take medication as prescribed. Keep f/u appointments as sche you need a medication refill if you cannot get a response from your PCP. Call us for any red flag issues, call us nights, weekends, holidays and If you cannot get a response from your PCP Health Concerns Date Concern 2024-02-08 Visit completed usin g audio/video.Patient/Guardian agreed to visit via telehealth. Today, patient has chief complaint of: follow up care and comprehensive review.
--- OUTSIDE RECORDS SUMMARY | 2024-06-27 13:05 | XMS_ITS | Clinical Summary ---
Author Organization [address] [place] [address] Address [address] [place] [address] Phone Care Team Providers Care Software Requirements Engineer Name Role Phone Oneil Morton MD Primary Care Provider Allergies Active Allergy Reactions Criticality Noted Date Comments Penicillins Unknown 06/05/2017 Medications Medication Sig Dispensed Refills Start Date End Date Status semaglutide (Wegovy) 0.25 mg/0.5 mL injection pen Inject 0.25 mg under the skin every 7 (seven) days. 4 mL 1 06/15/2024 Active Encounters Date Type Department Care Team Description 06/22/2024 Telephone Bariatric Surgery [address] [address] Tami Herman MD Prior auth (Prior auth) 06/15/2024 11:15 AM EST Consult Bariatric Surgery [address] [address] Tami Herman MD Transaminitis (Primary Dx); Class 3 severe obesity due to excess calories with body mass index (BMI) of 50.0 to 59.9 in adult, unspecified whether serious comorbidity present (CMS/HCC) from Last 3 Months Social History Tobacco Use Types Packs/Day Years Used Date Smoking Tobacco: Never Assessed Sex and Gender Information Value Date Recorded Sex Assigned at Not on file Gender Identity Not on file Sexual Orientation Not on file Job Start Date Occupation Industry Not on file Not on file Not on file Last Filed Vital Signs Vital Sign Reading Time Taken Comments Blood Pressure 121/79 06/15/2024 10:58 AM EST Pulse 88 06/15/2024 10:58 AM EST Temperature 36.2 ??C (97.2 ??F) 06/15/2024 10:[address] Respiratory Rate - - Oxygen Saturation - - Inhaled Oxygen Concentration - - Weight 171 kg (377 lb) 06/15/2024 10:58 AM EST Height 175.3 cm (5' 9 ) 06/15/2024 10:58 AM EST Body Mass Index 55.67 06/15/2024 10:58 AM EST Plan of Treatment Upcoming Encounters Date Type Department Care Team (Late st Contact Info) Description 06/30/2024 11:00 AM EST Appointment [facility] Ultrasound [address] [place] [phone] 10/17/2024 1:45 PM EDT Office Visit Bariatric Surgery - [place] [address] [phone] Tami Herman MD 175 [facility] [address] [place] [address] Health Maintenance Due Date Last Done Comments COVID-19 Vaccine () 01/30/2024 07/02/2021, 09/21/2020, 08/31/2020 Depression Screening 03/22/2024 HIV Screening 03/22/2024 Hepatitis C Screening 03/22/2024 Medicare Annual Wellness Visit 03/22/2024 Social Influencers of Health Screening 03/22/2024 Cholesterol Screening (Lipid Panel) 03/22/2029 03/22/2024 DTaP,Tdap,and Td Vaccines (8 - Td or Tdap) 01/31/2034 02/01/2024, 04/05/2016, 08/29/2009, Additional history exists Hepatitis B Vaccines Completed 05/18/1995, 01/14/1995, 1994 HIB Vaccines Completed 09/07/1995, 04/30, 01/14/1995, Additional history exists IPV Vaccines Completed 1999, 04/30, 01/14/1995, Additional history exists MMR Vaccines Completed 1999, 05/18/1995 Varicella Vaccines Completed 09/22/2010, 08/29/2009 Meningococcal ACWY Vaccine Completed 11/01/2012, HPV Vaccines Completed 05/05/2013, 09/2012, 11/01/2012 Influenza Vaccine Completed 03/22/2024, , 02/23/2023, Additional history exists Hepatitis A Vaccines Aged Out No long er eligible based on patient's age to complete this topic Pneumococcal Vaccine: Pediatrics (0 to 5 Years) and At-Risk Patients (6 to 64 Years) Aged Out No longer eligible based on patient's age to complete this topic RSV Immunization Patients Under 20 months Aged Out No longer eligible based on patient's age to complete this topic Care Teams Software Requirements Engineer Relationship Specialty Start Date End Date Oneil Morton MD 22 [facility] [address] [place] [address] PCP - General Pediatrics 05/12/24
--- OUTSIDE RECORDS SUMMARY | 2024-06-27 13:05 | XMS_ITS | Encounter Summary ---
Author Organization [facility] Address [address] [place] [address] Care Team Providers Care Certified Court Interpreter Name Role Phone Oneil Morton MD Primary Care Provider [phone] Reason for Referral * Imaging (Routine) - Authorized Specialty Diagnoses / Procedures Referred By Contac t Referred To Contact Radiology Diagnoses Transaminitis Procedures US Abdomen Complete Tami Herman MD [address] [address] [facility] Referral ID Status Reason Start Date Expiration Date V isits Requested Visits Authorized [id number] Authorized 06/15/2024 06/15/2025 1 1 Reason for Visit * Reason Comments Consult Medical intervention /Surgery Encounter Details Date Type Department Care Team (Late st Contact Info) Description 06/15/2024 11:15 AM EST Consult Bariatric Surgery - [place] [address] [phone] Tami Herman MD [address] [address] Transaminitis (Primary Dx); Class 3 severe obesity due to excess calories with body mass index (BMI) of 50.0 to 59.9 in adult, unspecified whether serious comorbidity present (CMS/HCC) Social History Tobacco Use Types Packs/Day Years Used Date Smoking Tobacco: Never Assessed Sex and Gender Information Value Date Recorded Sex Assigned at Not on file Gender Identity Not on file Sexual Orientation Not on file Job Start Date Occupation Industry Not on file Not on file Not on file documented as of this encounter Last Filed Vital Signs Vital Sign Reading [...] Mass Index 55.67 06/15/2024 10:58 AM EST documented in this encounter Ordered Prescriptions Prescription Sig Dispensed Refills Start Date End Da te semaglutide (Wegovy) 0.25 mg/0.5 mL injection pen Inject 0.25 mg under the skin every 7 (seven) days. 4 mL 1 06/15/2024 documented in this encounter Progress Notes * Tami Herman MD - 06/15/2024 11:15 AM EST Referring physician: PCP. Ms. Zaidi is a 29 y.o. year old male who presents for surgical consultation regarding obesity. HPI: Ms. Zaidi Onset: age 21 yr. Became very hungry. Tried working out and hunger was worse. Factors: less activity, Stopped training at age 21. Not working. Boredom is a factor. Previous attempts: Has tried to cut down on carbs recently. Brown bismati rice now. Eating habits: large portion and night eating Exercise: none. Comorbidities: A1C 5.9% 2 months ago. Elevated LFT's. HDL is 33. BMI: 55.67. ROS: GENERAL: No malaise, significant unintentional weight loss, fever, chills or night sweats. HEENT: No changes in hearing or vision, no nose bleeds or other nasal problems. NECK: No lumps, goiter, pain or significant neck swelling RESPIRATORY: No cough, wheezing or shortness of breath CARDIOVASCULAR: No chest pain, leg swelling or palpitations. GI: regurgitation if he eats a lot at night. : No dysuria, frequency or incontinence. SKIN: No lesions, rash or itching. HEMATOLOGY: No prolonged bleeding, easy bruisability. LYMPHOLOGY No swollen nodes. MUSCULOSKELETAL: No abnormalities. NEURO: No abnormalities. All other systems reviewed which are negative. PAST MEDICAL HISTORY: There is no problem list on file for this patient. PAST SURGICAL HISTORY: No past surgical history on file. SOCIAL HISTORY: Social History Tobacco Use Smoking status: Not on file Smokeless tobacco: Not on file Substance Use Topics Alcohol use: Not on file FAMILY HISTORY: No family history on file. No family status information on file. MEDICATIONS: There are no discontinued medications. ACTIVE MEDICATIONS: No outpatient medications have been marked as taking for the 06/15/24 encounter (Consult) with Tami Herman MD. ALLERGIES: Allergies Allergen Reactions Penicillins Unknown PHYSICAL EXAM: Visit Vitals BP 121/79 Pulse 88 Temp 36.2 ??C (97.2 ??F) (Oral) Ht 1.753 m (69 ) Wt 171 kg (377 lb) BMI 55.67 kg/m?? BSA 2.7 m?? APPEARANCE: Alert and oriented and in no acute distress EYES: Conjunctiva normal and sclera normal and anicteric. NECK: Neck supple with no adenopathy. HEART: RRR with normal S 1 and S 2, no murmurs, no gallops. LUNG: Clear to auscultation LYMPH NODES: No gross cervical or clavicular lymphadenopathy. ABDOMEN: Bowel sounds normoactive, soft, non-tender, non-distended, EXTREMITIES: Extremities warm and well perfused without clubbing, cyanosis, or edema. SKIN: Skin color and texture normal. No rashes or lesions. NEUROLOGIC: Alert and oriented ??3. No motor or sensory deficits in the extremities. LABS/IMAGING: @AORD@ ASSESSMENT: 1. Transaminitis US Abdomen Complete 2. Class 3 severe obesity due to excess calories with body mass index (BMI) of 50.0 to 59.9 in adult, unspecified whether serious comorbidity present (CMS/[facility]) PLAN: 1. I discussed with the patient the different procedures available including the sleeve gastrectomy, the gastric bypass and the single anastomosis duodenal ileal bypass with sleeve. Indications, benefits, risks and complications were discussed. I also discussed with the patient the different medical options. I explained the mechanism of action, the potential adverse effects and the expected results. These included phentermine, topiramate, naltrexone, bupropion and the different GLP-1 medications. 2. The patient needs to lose weight before surgery. Will start on semaglutide to help him lose weight before the operation. Needs to lose 5-10% of current weight, at least 19 lbs. 3. Will discuss the options when ai see the patient again. 4. Will start program. documented in this encounter Plan of Treatment Upcoming Encounters Date Type Department Care Team (Late st Contact Info) Description 06/30/2024 11:00 AM EST Appointment [facility] Ultrasound [address] [place] [phone] 10/17/2024 1:45 PM EDT Office Visit Bariatric Surgery - [place] [address] [phone] Tami Herman MD 175 [facility] 120 [place] [address] Scheduled Orders Name Type Priority Associated Diagnoses Orde r Schedule US Abdomen Complete Imaging Routine Transaminitis Expected: 06/15/2024, Expires: 06/15/2025 documented as of this encounter Visit Diagnoses Diagnosis Transaminitis- Primary Nonspecific elevation of levels of transaminase or lactic acid dehydrogenase (LDH) Class 3 severe obesity due to excess calories with body mass index (BMI) of 50.0 to 59.9 in adult, unspecified whether serious comorbidity present (CMS/HCC) documented in this encounter Care Teams Certified Court Interpreter Relationship Specialty Start Date End Date Oneil Morton MD [address] [place] [address] PCP - General Pediatrics 05/12/24 documented as of this encounter
== END 2024-06-27 12:06 | disposition home or self-care (01) ==
LOC: HO.LABR 12:05
PROVIDERS: PCP Pediatrics
DX: Z79.899 Other long term (current) drug therapy (principal)
CPT/HCPCS: 36415; 85025

== ENCOUNTER 2024-07-11 13:30 | Outpatient (REF) | payer MEDICARE, SELFPAY ==
[2024-07-11 13:53] LABS: MANUAL DIFF FLAG NO
--- OUTSIDE RECORDS SUMMARY | 2024-07-11 14:37 | XMS_ITS | Encounter Summary ---
Author Organization [facility] Address [address] [place] [address] Care Team Providers Care Liquor Grinder Mill Operator Name Role Phone Oneil Morton MD Primary Care Provider [phone] Reason for Referral * Imaging (Routine) - Authorized Specialty Diagnoses / Procedures Referred By Contac t Referred To Contact Radiology Diagnoses Transaminitis Procedures US Abdomen Complete Tami Herman MD [address] [address] Phone: tel: fax: [facility] Referral ID Status Reason Start Date Expiration Date V isits Requested Visits Authorized [id number] Authorized 06/15/2024 06/15/2025 1 1 Reason for Visit * Imaging (Routine) - Authorized Specialty Diagnoses / Procedures Referred By Osiris t Referred To Contact Radiology Diagnoses Transaminitis Procedures US Abdomen Complete Tami Herman MD [address] [address] Phone: tel: fax: [facility] Referral ID Status Reason Start Date Expiration Date V isits Requested Visits Authorized [id number] Authorized 06/15/2024 06/15/2025 1 1 Encounter Details Date Type Department Care Team (Latest Contact Info) Description 07/07/2024 11:30 AM EST - 07/07/2024 11:59 PM EST Hospital Encounter [facility] Ultrasound [address] [place] [address] Transaminitis Discharge Disposition: Home or Self Care Social History Tobacco Use Types Packs/Day Years Used Date Smoking Tobacco: Never Assessed Sex and Gender Information Value Date Recorded Sex Assigned at Male 07/07/2024 11:35 AM EST Legal Sex Male 6:19 PM EST Gender Identity Male 07/07/2024 11:35 AM EST Sexual Orientation Straight 07/07/2024 11 :35 AM EST documented as of this encounter Medications at Time of Discharge semaglutide (Wegovy) 0.25 mg/0.5 mL injection pen Inject 0.25 mg under the skin every 7 (seven) days. 4 mL 1 06/15/2024 documented as of this encounter Discharge Disposition Disposition Code Departure Means Destination Home or Self Care documented in this encounter Plan of Treatment Upcoming Encounters Date Type Department Care Team (Late st Contact Info) Description 10/17/2024 1:45 PM EDT Office Visit Bariatric Surgery - [place] [address] [phone] Tami Herman MD 175 [facility] 120 [place] [address] Pending Results Name Type Priority Associated Diagnoses Date /Time US Abdomen Complete Imaging Routine Transaminitis 07/07/2024 2:30 PM EST Scheduled Orders Name Type Priority Associated Diagnoses Orde r Schedule US Abdomen Complete Imaging Routine Transaminitis Once for 1 Occurrences starting 07/07/2024 until 07/07/2024 documented as of this encounter Visit Diagnoses Diagnosis Transaminitis Nonspecific elevation of levels of transaminase or lactic acid dehydrogenase (LDH) documented in this encounter Care Teams Liquor Grinder Mill Operator Relationship Specialty Start Date End Date Oneil Morton MD [address] [place] [address] [place] [address] PCP - General Pediatrics 05/12/24 documented as of this encounter
--- OUTSIDE RECORDS SUMMARY | 2024-07-11 14:37 | XMS_ITS | Encounter Summary ---
Author Organization [facility] Address [address] [place] [address] Care Team Providers Care Secondary Teacher Name Role Phone Oneil Morton MD Primary Care Provider [phone] Reason for Visit * Reason Onset Date Comments Prior auth 06/22/2024 Prior auth Encounter Details Date Type Department Care Team (Late st Contact Info) Description 06/22/[address] [facility] [address] [phone] Tami Herman MD [address] [address] Prior auth (Prior auth) Social History Tobacco Use Types Packs/Day Years Used Date Smoking Tobacco: Never Assessed Sex and Gender Information Value Date Recorded Sex Assigned at Male 07/07/2024 11:35 AM EST Legal Sex Male 6:19 PM EST Gender Identity Male 07/07/2024 11:35 AM EST Sexual Orientation Straight 07/07/2024 11 :35 AM EST documented as of this encounter Progress Notes * Valery Ansari - 06/22/2024 12:57 PM EST Patient needs a PA documented in this encounter Plan of Treatment Upcoming Encounters Date Type Department Care Team (Late st Contact Info) Description 10/17/2024 1:45 PM EDT Office Visit Bariatric Surgery [facility] [address] [phone] Tami Herman MD [address] [address] documented as of this encounter Visit Diagnoses Not on filedocumented in this encounter Care Teams Secondary Teacher Relationship Specialty Start Date End Date Oneil Morton MD [address] [place] [address] PCP - General Pediatrics 05/12/24 documented as of this encounter
--- OUTSIDE RECORDS SUMMARY | 2024-07-11 14:37 | XMS_ITS | Encounter Summary ---
Author Organization [facility] Address [address] [place] [address] Care Team Providers Care Petrology Teacher Name Role Phone Oneil Morton MD Primary Care Provider [phone] Reason for Referral * Imaging (Routine) - Authorized Specialty Diagnoses / Procedures Referred By Osiris thorne Referred To Contact Radiology Diagnoses Transaminitis Procedures US Abdomen Complete Tami Herman MD [address] [address] Phone: tel: fax: [facility] Referral ID Status Reason Start Date Expiration Date V isits Requested Visits Authorized [id number] Authorized 06/15/2024 06/15/2025 1 1 Reason for Visit * Reason Comments Consult Medical intervention /Surgery Encounter Details Date Type Department Care Team (Late st Contact Info) Description 06/15/2024 11:15 AM EST Consult Bariatric Surgery - [place] [address] [phone] Tami Herman MD [address] [address] Transaminitis (Primary Dx); Class 3 severe obesity [...] AM EST documented as of this encounter Last Filed [...] in this encounter Ordered Prescriptions Prescription Sig Dispense Quantity Refills Last Filled Start Date End Date semaglutide (Wegovy) 0.25 mg/0.5 mL injection pen [...] in adult, unspecified whether serious comorbidity present (CMS/[facility]) PLAN: 1. I discussed with the [...] PM EDT Office Visit Bariatric Surgery - [place] [address] [facility] [address] [place] [phone] Tami Herman MD [address] [address] Pending Results Name Type Priority Associated Diagnoses [...] (CMS/HCC) documented in this encounter Care Teams Petrology Teacher Relationship Specialty Start Date End Date Oneil Morton MD 22 [facility] [address] [place] [address] PCP - General Pediatrics 05/12/24 documented as of this encounter
--- OUTSIDE RECORDS SUMMARY | 2024-07-11 14:37 | XMS_ITS ---
Author Name Pao RANI, MS. [facility] Address [address] [place] [address] Phone [phone] [facility] Care Team Providers Care Networking Administrator Name Role Phone [facility] Unavailable [phone] Unavailable Unavailable Unavailable Unavailable Unavailable Unavailable Reason [...] schizophrenia Active N/A [facility] Active 2023-08-06 N/A Encounters Encounters Type Facility Date of Service Diagnosis/Co mplaint New patient, 30-44min 1 stable chronic or 2 minor; add modifier 95 for video, modifier 93 for phone [facility], ([place]) 05/21/2023 Obesity, unspecifiedBody mas s index (BMI) 45.0-49.9, adultHallucinations, unspecified New patient, 30-44min 1 stable chronic or 2 minor; add modifier 95 for video, modifier 93 for phone [facility], [place] 05/21/2023 New patient, 30-44min 1 stable chronic or 2 minor; add modifier 95 for video, modifier 93 for [facility], [place] 05/21/2023 New patient, 30-44min 1 stable chronic or 2 minor; add modifier 95 for video, modifier 93 for phone [facility], ([place] 05/21/2023 No Data Available [facility], ([place]) 10/05/2023 Other specified counseling Estab. patient 30-39min; chronic exacerbation, 2 stable chronic or 1 acute illness add add modifier 95 for video, (do not use for phone, instead use 66536-07) [facility] ([place]) 02/08/2024 Morbid (severe) obesity due to excess caloriesBody mass index (BMI) 45.0-49.9, adultSchizophrenia, unspecifiedOther problems related to medical facilities and other health care Estab. patient 30-39min; chronic exacerbation, 2 stable chronic or 1 acute illness add add modifier 95 for video, (do not use for phone, instead use 69437-35) [facility] ([place]) 02/08/2024 Estab. patient 30-39min; chronic exacerbation, 2 stable chronic or 1 acute illness add add modifier 95 for video, (do not use for phone, instead use 11929-08) [facility] ([place] 02/08/2024 Estab. patient 30-39min; chronic exacerbation, 2 stable chronic or 1 acute illness add add modifier 95 for video, (do not use for phone, instead use 21030-17) [facility] ([place] 02/08/2024 Estab. patient 30-39min; chronic exacerbation, 2 stable chronic or 1 acute illness add add modifier 95 for video, (do not use for phone, instead use 57559-52) [facility] ([place] 02/08/2024 Estab. patient 30-39min; chronic exacerbation, 2 stable chronic or 1 acute illness add add modifier 95 for video, (do not use for phone, instead use 18507-24) [facility] ([place]) 02/08/2024 Vital Signs Date of Collection Vitals 2023-05-21 15:01:35 Height - 175.26 cmWe ight - 142.88 kgBody Mass Index (BMI) - 46.52 kg/m2 2024-02-08 07:53:09 Height - 175.26 cmWe ight - 143.34 kgBody Mass Index (BMI) - 46.67 kg/m2BP Diastolic - 64.0 mm[Hg]BP Systolic - 118.0 mm[Hg] Social History Social History Social History Observation Description Effec tive Time Current Smoking Status Never smoker 2024-07-01 1 Sex Male History of Procedures Procedures Service Procedure code Service date Servicing provider Phone# New patient, 30-44min 1 stable chronic or 2 minor; add modifier 95 for video, modifier 93 for phone [id number] 2023-05-21 No Data Available No Data Availa ble Medication List Documented (1159F) [id number] 2023-05-21 No Data Available No Data Shyanne ilable Functional Status Assessed (1170F) 1170F 2023-05-21 No Data Available No Data Avail able BMI obtained (3008F) 3008F 2023-05-21 No Data Availab le No Data Available No Data Available [id number] 2023-10-05 No Data Available No Data Available Estab. patient 30-39min; chronic exacerbation, 2 stable chronic or 1 acute illness add add modifier 95 for video, (do not use for phone, instead use [id number]) [id number] 2024-02-08 No Data Available No Data Availa [...]
--- OUTSIDE RECORDS SUMMARY | 2024-07-11 14:37 | XMS_ITS | Clinical Summary ---
Author Organization 175 [facility] Address [address] [place] [address] Phone Care Team Providers Care Golf Caddy Name Role Phone Oneil Morton MD Primary Care Provider Allergies Active Allergy Reactions Criticality Noted Date Comments Penicillins Unknown 06/05/2017 Medications semaglutide (Wegovy) 0.25 mg/0.5 mL injection pen Inject 0.25 mg under the skin every 7 (seven) days. 4 mL 1 06/15/2024 Active Encounters Date Type Department Care Team Description 07/07/2024 11:30 AM EST - 07/07/2024 11:59 PM EST Hospital Encounter [facility] Ultrasound [address] [place] [phone] Transaminitis Discharge Disposition: Home or Self Care 06/22/2024 Telephone Bariatric Surgery [facility] [address] [phone] Tami Herman MD Prior auth (Prior auth) 06/15/2024 11:15 AM EST Consult Bariatric Surgery [facility] [address] [phone] Tami Herman MD Transaminitis (Primary Dx); Class [...] Orientation Straight 07/07/2024 11 :35 AM EST Last Filed Vital Signs Vital Sign Reading [...] PM EDT Office Visit Bariatric Surgery - [place] 175 [facility] [address] [place] [address] Tami Herman MD 175 [facility] [address] [place] [address] Health Maintenance Due Date Last Done Comments COVID-19 Vaccine ( season) 2024 07/02/2021, 09/21/2020, 08/31/2020 Depression Screening 03/22/2024 HIV [...] on patient's age to complete this topic Meningococcal B Vacine Aged Out No lo nger eligible based on patient's age to complete this topic Pneumococcal Vaccine: Pediatrics (0 to 5 Years) and At-Risk Patients (6 to 64 Years) Aged Out No longer eligible based on patient's age to complete this topic RSV Immunization Patients Under 20 months Aged Out No longer eligible based on patient's age to complete this topic Insurance [employer] Care Teams Golf Caddy Relationship Specialty Start Date End Date Oneil Morton MD [address] [place] [address] PCP - General Pediatrics 05/12/24
[2024-07-11 15:25] LABS: Basophils Percent Auto 0.4 % (0-2); Eosinophils Absolute Auto 0.5 X10*3/uL (0.0-0.4); Eosinophils Percent Auto 6.3 % (0-4); Hematocrit 43.4 % (42.0-52.0); Hemoglobin 14.6 g/dl (14.0-18.0); Imm Gran Abs Auto 0.02 X10*3/uL (0.00-0.03); Imm Gran Pct Auto 0.2 % (0.0-0.4); Lymphocytes Absolute Auto 2.5 X10*3/uL (1.2-4.9); Lymphocytes Percent Auto 30.9 % (20-40); Mean Corpuscular HGB Conc 33.6 g/dl (31.0-36.0); Mean Corpuscular Volume 89.1 fL (80.0-98.0); Monocytes Absolute Auto 0.6 X10*3/uL (0.1-1.2); Monocytes Percent Auto 7.3 % (2-11); Neutrophils Absolute Auto 4.4 x10*3/uL (2.0-8.3); Neutrophils Percent Auto 54.9 % (45-73); Platelet Count 315 X10*3/uL (160-400); Red Blood Count 4.87 X10*6/uL (4.60-5.80); White Blood Count 8.1 X10*3/uL (4.8-10.8)
== END 2024-07-11 13:31 | disposition home or self-care (01) ==
LOC: HO.LABR 13:30
PROVIDERS: PCP Pediatrics
DX: Z79.899 Other long term (current) drug therapy (principal)
CPT/HCPCS: 36415; 85025

== ENCOUNTER 2024-08-03 14:23 | Outpatient (REF) | payer MEDICARE, SELFPAY ==
[2024-08-03 14:40] LABS: MANUAL DIFF FLAG NO
[2024-08-03 15:55] LABS: Basophils Percent Auto 0.4 % (0-2); Eosinophils Absolute Auto 0.5 X10*3/uL (0.0-0.4); Eosinophils Percent Auto 5.3 % (0-4); Hematocrit 44.4 % (42.0-52.0); Hemoglobin 14.9 g/dl (14.0-18.0); Imm Gran Abs Auto 0.04 X10*3/uL (0.00-0.03); Imm Gran Pct Auto 0.5 % (0.0-0.4); Lymphocytes Absolute Auto 3.5 X10*3/uL (1.2-4.9); Lymphocytes Percent Auto 40.8 % (20-40); Mean Corpuscular HGB Conc 33.6 g/dl (31.0-36.0); Mean Corpuscular Hemoglobin 29.7 pg (27.0-33.0); Mean Corpuscular Volume 88.6 fL (80.0-98.0); Mean Platelet Volume 9.7 fL (9.4-12.4); Monocytes Absolute Auto 0.6 X10*3/uL (0.1-1.2); Monocytes Percent Auto 6.8 % (2-11); Neutrophils Absolute Auto 3.9 x10*3/uL (2.0-8.3); Neutrophils Percent Auto 46.2 % (45-73); Platelet Count 344 X10*3/uL (160-400); Red Blood Count 5.01 X10*6/uL (4.60-5.80); Red Cell Distribution Width 12.8 % (11.0-16.0); White Blood Count 8.5 X10*3/uL (4.8-10.8)
--- OUTSIDE RECORDS SUMMARY | 2024-08-03 17:41 | XMS_ITS | Encounter Summary ---
Author Organization [facility] Address [address] [place] [address] Care Team Providers Care Boat Mechanic Name Role Phone Oneil Morton MD Primary Care Provider [phone] Reason for Referral * Imaging (Routine) - Closed Specialty Diagnoses / Procedures Referred By Contac t Referred To Contact Radiology Diagnoses Transaminitis Procedures US Abdomen Complete Tami Herman MD [address] [address] Phone: tel: fax: [facility] Referral ID Status Reason Start Date Expiration Date Visits Re quested Visits Authorized [id number] Closed 06/15/2024 06/15/2025 1 1 Reason for Visit * Imaging (Routine) - Closed Specialty Diagnoses / Procedures Referred By Osiris thorne Referred To Contact Radiology Diagnoses Transaminitis Procedures US Abdomen Complete Tami Herman MD [address] [address] Phone: tel: fax: [facility] Referral ID Status Reason Start Date Expiration Date Visits Re quested Visits Authorized [id number] Closed 06/15/2024 06/15/2025 1 1 Encounter Details Date Type Department Care Team (Latest Contact Info) Description 07/07/2024 11:30 AM EST - 07/07/2024 11:59 PM EST Hospital Encounter [facility] Ultrasound [address] [place] [phone] Transaminitis Discharge Disposition: Home or Self Care [...] PM EDT Office Visit Bariatric Surgery - [place] 175 [facility] [address] [place] [phone] Tami Herman MD 175 [facility] [address] [place] [address] documented as of this encounter Procedures Procedure Name Priority Date/Time Associated Diagnosis Comments US ABDOMEN COMPLETE Routine 07/07/2024 2 :30 PM EST Transaminitis documented in this encounter Results * US Abdomen Complete (07/07/2024 2:30 PM EST) Anatomical Region Laterality Modality Body Ultrasound 07/13/2024 2:46 PM EST Impressions 07/13/2024 2:53 PM EST No gallstones. ??There is prominent common bile duct measuring 7 mm sonographically. ??An MRCP could be performed if clinically indicated. Hepatic steatosis. -------- FINAL REPORT -------- Dictated By: Kaylynn Thakkar Dictated Date: 07/13/2024 14:46 ET Assigned Physician: Kaylynn Thakkar Reviewed and Electronically Signed By: Kaylynn Thakkar Signed Date: 07/13/2024 14:53 ET Workstation ID: [id number] Transcribed By: Self Edit Transcribed Date: 07/13/2024 14:46 ET Narrative 07/13/2024 2:53 PM EST CLINICAL HISTORY: ??Abn liver function tests (LFTs). TECHNIQUE: US ABDOMEN COMPLETE. COMPARISON: No prior imaging available for comparison.. FINDINGS: Pancreas: Partially obscured by bowel gas however visualized portions are within normal limits. Liver: The liver shows increased echogenicity suggestive of diffuse fatty infiltration, without evidence for focal mass lesion or biliary duct dilatation. ??Hepatopedal flow in the main portal vein. Gallbladder: The gallbladder shows no gallstones or wall thickening. No pericholecystic fluid or hyperemia is noted. The gallbladder wall is 2 mm thick. The airport security screener reports a negative Escamilla's sign. Common bile duct: 7 mm Kidneys: In greatest length, the RIGHT kidney measures 13.3 cm. No focal renal mass lesions, hydronephrosis or calculi are seen. Additional: There is no evidence of ascites Procedure Note Kaylynn Thakkar MD - 07/13/2024 CLINICAL HISTORY: Abn liver function tests (LFTs). TECHNIQUE: US ABDOMEN COMPLETE. COMPARISON: No prior imaging available for comparison.. FINDINGS: Pancreas: Partially obscured by bowel gas however visualized portions arewithin normal limits. Liver: The liver shows increased echogenicity suggestive of diffuse fattyinfiltration, without evidence for focal mass lesion or biliary ductdilatation. Hepatopedal flow in the main portal vein. Gallbladder: The gallbladder shows no gallstones or wall thickening. Nopericholecystic fluid or hyperemia is noted. The gallbladder wall is 2 mmthick. The airport security screener reports a negative Escamilla's sign. Common bile duct: 7 mm Kidneys: In greatest length, the RIGHT kidney measures 13.3 cm. No focalrenal mass lesions, hydronephrosis or calculi are seen. Additional: There is no evidence of ascites IMPRESSION: No gallstones. There is prominent common bile duct measuring 7 mmsonographically. An MRCP could be performed if clinically indicated. Hepatic steatosis. -------- FINAL REPORT -------- Dictated By: Kaylynn Thakkar Dictated Date: 07/13/2024 14:46 ET Assigned Physician: Kaylynn Thakakr Reviewed and Electronically Signed By: Kaylynn Thakkar Signed Date: 07/13/2024 14:53 ET Workstation ID: [id number] Transcribed By: Self Edit Transcribed Date: 07/13/2024 14:46 ET us Tami Herman MD IMG US PROCEDURES Final Resu lt documented in this encounter Visit Diagnoses Diagnosis Transaminitis Nonspecific elevation of levels of transaminase or lactic acid dehydrogenase (LDH) documented in this encounter Care Teams Boat Mechanic Relationship Specialty Start Date End Date Oneil Morton MD 22 [facility] [address] [place] [address] PCP - General Pediatrics 05/12/24 documented as of this encounter
--- OUTSIDE RECORDS SUMMARY | 2024-08-03 17:41 | XMS_ITS | Encounter Summary ---
Author Organization [facility] Address [address] [place] [address] Care Team Providers Care Food Porter Name Role Phone Oneil Morton MD Primary Care Provider [phone] Reason for Visit * Reason Onset Date Comments Prior auth 06/22/2024 Prior auth Encounter Details Date Type Department Care Team (Late st Contact Info) Description 06/22/2024 Telephone Bariatric Surgery - [place] 175 [facility] [address] [place] [phone] Tami Herman MD [address] [facility] [address] [place] [address] Prior auth (Prior auth) Social History Tobacco Use Types Packs/Day Years Used Date Smoking Tobacco: Never Assessed Sex and Gender Information Value Date Recorded Sex Assigned at Male 07/07/2024 11:35 AM EST Legal Sex Male 6:19 PM EST Gender Identity Male 07/07/2024 11:35 AM EST Sexual Orientation Straight 07/07/2024 11 :35 AM EST documented as of this encounter Progress Notes * Yesenia Moreno - 08/03/2024 4:28 PM EST Patient would like a prior auth for Zepbound sent to insurance. He's thinking they may cover this one. * Valery Ansari - 07/26/2024 11:26 AM EST Patient called to follow up on PA. Also would like to know if there is alternative medication * Valery Ansari - 06/22/2024 12:57 PM EST Patient needs a PA documented in this encounter Plan of Treatment Upcoming Encounters Date Type Department Care Team (Late st Contact Info) Description 10/17/2024 1:45 PM EDT Office Visit Bariatric Surgery - [place] 175 [facility] [address] [place] [address] Tami Herman MD 175 [facility] [address] [place] [address] documented as of this encounter Visit Diagnoses Not on filedocumented in this encounter Care Teams Food Porter Relationship Specialty Start Date End Date Oneil Morton MD 22 [facility] [address] [place] [address] PCP - General Pediatrics 05/12/24 documented as of this encounter
--- OUTSIDE RECORDS SUMMARY | 2024-08-03 17:41 | XMS_ITS ---
Author Name Pao RANI, MS. [facility] Address [address] [place] [address] Phone [phone] [facility] Care Team Providers Care Fire Support Man Name Role Phone [facility] Unavailable [phone] Unavailable Unavailable Unavailable Reason for Referral Not [...] schizophrenia Active N/A Other problems related to [facility] facilities and other health care Active 2023-08-06 N/A Encounters Encounters Type Facility Date of Service Diagnosis/Co mplaint New patient, 30-44min 1 stable chronic or 2 minor; add modifier 95 for video, modifier 93 for phone [facility], ([place]) 05/[place]/2023 Obesity, unspecifiedBody mas s index (BMI) 45.0-49.9, adultHallucinations, unspecified New patient, 30-44min 1 stable chronic or 2 minor; add modifier 95 for video, modifier 93 for phone [facility] 05/[place]/2023 New patient, 30-44min 1 stable chronic or 2 minor; add modifier 95 for video, modifier 93 for phone [facility] 05/[place]/2023 New patient, 30-44min 1 stable chronic or 2 minor; add modifier 95 for video, modifier 93 for phone [facility] 05/21/2023 No Data Available [facility] 10/05/2023 Other specified counseling Estab. patient 30-39min; chronic exacerbation, 2 stable chronic or 1 acute illness add add modifier 95 for video, (do not use for phone, instead use 38783-97) [facility] ([place]) 02/08/2024 Morbid (severe) obesity due to excess caloriesBody mass index (BMI) 45.0-49.9, adultSchizophrenia, unspecifiedOther problems related to medical facilities and other health care Estab. patient 30-39min; chronic exacerbation, 2 stable chronic or 1 acute illness add add modifier 95 for video, (do not use for phone, instead use 22490-56) [facility] ([place] 02/08/20[place] Estab. patient 30-39min; chronic exacerbation, 2 stable chronic or 1 acute illness add add modifier 95 for video, (do not use for phone, instead use 46314-65) [facility] ([place]) 02/08/20[place] Estab. patient 30-39min; chronic exacerbation, 2 stable chronic or 1 acute illness add add modifier 95 for video, (do not use for phone, instead use 28932-91) [facility] ([place]) 02/08/20[place] Estab. patient 30-39min; chronic exacerbation, 2 stable chronic or 1 acute illness add add modifier 95 for video, (do not use for phone, instead use 22882-47) [facility] ([place] 02/08/20[place] Estab. patient 30-39min; chronic exacerbation, 2 stable chronic or 1 acute illness add add modifier 95 for video, (do not use for phone, instead use 95222-04) [facility] ([place]) 02/08/2024 Vital Signs Date of Collection Vitals 2023-05-21 15:01:35 Height - 175.26 cmWe ight - 142.88 kgBody Mass Index (BMI) - 46.52 kg/m2 2024-02-08 07:53:09 Height - 175.26 cmWe ight - 143.34 kgBody Mass Index (BMI) - 46.67 kg/m2BP Diastolic - 64.0 mm[Hg]BP Systolic - 118.0 mm[Hg] Social History Social History Social History Observation Description Effec tive Time Current Smoking Status Never smoker 5 Sex Male History of Procedures Procedures Service Procedure code Service date Servicing provider Phone# New patient, 30-44min 1 stable chronic or 2 minor; add modifier 95 for video, modifier 93 for phone [id number] 2023-05-21 No Data Available No Data Availa ble Medication List Documented (1159F) 1159F 2023-05-21 No Data Available No Data Shyanne ilable Functional Status Assessed (1170F) 1170F 2023-05-21 No Data Available No Data Avail able BMI obtained (3008F) 3008F 2023-05-21 No Data Availab le No Data Available No Data Available [id number] 2023-10-05 No Data Available No Data Available Estab. patient 30-39min; chronic exacerbation, 2 stable chronic or 1 acute illness add add modifier 95 for video, (do not use for phone, instead use 07075-94) [id number] 2024-02-08 No Data Available No Data Availa ble Medication List Documented (1159F) 1159F 2024-02-08 No Data Available No Data Shaynne ilable Functional Status Assessed (1170F) 1170F 2024-02-08 [...] modifier 95Continue to see PCP. Follow-up with Radha as needed for any acute or disease [...]
--- OUTSIDE RECORDS SUMMARY | 2024-08-03 17:42 | XMS_ITS | Clinical Summary ---
Author Organization 175 [facility] Address [address] [place] [address] Phone Care Team Providers Care Petroleum Inspector Name Role Phone Oneil Morton MD Primary Care Provider [phone] Allergies Active Allergy Reactions Criticality Noted Date Comments Penicillins Unknown 06/05/2017 Medications semaglutide (Wegovy) 0.25 mg/0.5 mL injection pen Inject 0.25 mg under the skin every 7 (seven) days. 4 mL 1 06/15/2024 Active Encounters Date Type Department Care Team Description 07/07/2024 11:30 AM EST - 07/07/2024 11:59 PM EST Hospital Encounter [facility] Ultrasound [address] [place] [phone] Transaminitis Discharge Disposition: Home or Self Care 06/22/2024 Telephone Bariatric Surgery [facility] [address] [phone] Tami Herman MD Prior auth (Prior auth) 06/15/2024 11:15 AM EST Consult Bariatric Surgery [facility] [address] [phone] Tami Herman MD Transaminitis (Primary Dx); Class [...] PM EDT Office Visit Bariatric Surgery - [place] 175 [facility] [address] [place] [address] Tami Herman MD 175 [facility] [address] [place] [address] Health Maintenance Due Date Last Done Comments [...] on patient's age to complete this topic Procedures Procedure Name Priority Date/Time Associated Diagnosis Comments US ABDOMEN COMPLETE Routine 07/07/2024 2 :30 PM EST Transaminitis from Last 3 Months Results * US Abdomen Complete (07/07/2024 2:30 [...] Signed Date: 07/13/2024 14:53 ET Workstation ID: [id number] Transcribed By: Self Edit Transcribed Date: 07/13/2024 [...] gallbladder wall is 2 mm thick. The events and promotions assistant reports a negative Escamilla's sign. Common bile [...] The gallbladder wall is 2 mmthick. The events and promotions assistant reports a negative Escamilla's sign. Common bile [...] Signed Date: 07/13/2024 14:53 ET Workstation ID: [id number] Transcribed By: Self Edit Transcribed Date: 07/13/2024 14:46 ET us Tami Herman MD IMG US PROCEDURES Final Resu lt from Last 3 Months Insurance [employer] MED[employer] Care Teams Petroleum Inspector Relationship Specialty Start Date End Date Oneil Morton MD 22 [facility] [address] [place] [address] PCP - General Pediatrics 05/12/24
== END 2024-08-03 14:24 | disposition home or self-care (01) ==
LOC: HO.LABR 14:23
PROVIDERS: PCP Pediatrics
DX: Z79.899 Other long term (current) drug therapy (principal)
CPT/HCPCS: 36415; 85025

== ENCOUNTER 2024-08-25 15:24 | Outpatient (REF) | payer MEDICARE, SELFPAY ==
[2024-08-25 15:49] LABS: MANUAL DIFF FLAG NO
[2024-08-25 16:04] LABS: Basophils Percent Auto 0.4 % (0-2); Eosinophils Absolute Auto 0.3 X10*3/uL (0.0-0.4); Eosinophils Percent Auto 4.4 % (0-4); Hematocrit 43.3 % (42.0-52.0); Hemoglobin 14.8 g/dl (14.0-18.0); Imm Gran Abs Auto 0.02 X10*3/uL (0.00-0.03); Imm Gran Pct Auto 0.3 % (0.0-0.4); Lymphocytes Absolute Auto 1.9 X10*3/uL (1.2-4.9); Lymphocytes Percent Auto 27.7 % (20-40); Mean Corpuscular HGB Conc 34.2 g/dl (31.0-36.0); Mean Corpuscular Hemoglobin 29.7 pg (27.0-33.0); Mean Corpuscular Volume 86.9 fL (80.0-98.0); Mean Platelet Volume 9.4 fL (9.4-12.4); Monocytes Absolute Auto 0.5 X10*3/uL (0.1-1.2); Monocytes Percent Auto 7.3 % (2-11); Neutrophils Absolute Auto 4.2 x10*3/uL (2.0-8.3); Neutrophils Percent Auto 59.9 % (45-73); Platelet Count 345 X10*3/uL (160-400); Red Blood Count 4.98 X10*6/uL (4.60-5.80); Red Cell Distribution Width 12.5 % (11.0-16.0)
== END 2024-08-25 15:25 | disposition home or self-care (01) ==
LOC: HO.LABR 15:24
DX: Z79.899 Other long term (current) drug therapy (principal)
CPT/HCPCS: 36415; 85025

== ENCOUNTER 2024-09-13 15:06 | Outpatient (REF) | payer MEDICARE, SELFPAY ==
[2024-09-13 15:31] LABS: MANUAL DIFF FLAG NO
[2024-09-13 15:51] LABS: Basophils Percent Auto 0.4 % (0-2); Eosinophils Absolute Auto 0.4 X10*3/uL (0.0-0.4); Eosinophils Percent Auto 5.8 % (0-4); Hematocrit 44.3 % (42.0-52.0); Hemoglobin 14.7 g/dl (14.0-18.0); Imm Gran Abs Auto 0.02 X10*3/uL (0.00-0.03); Imm Gran Pct Auto 0.3 % (0.0-0.4); Lymphocytes Absolute Auto 2.8 X10*3/uL (1.2-4.9); Lymphocytes Percent Auto 37.2 % (20-40); Mean Corpuscular HGB Conc 33.2 g/dl (31.0-36.0); Mean Corpuscular Hemoglobin 29.7 pg (27.0-33.0); Mean Corpuscular Volume 89.5 fL (80.0-98.0); Mean Platelet Volume 9.4 fL (9.4-12.4); Monocytes Absolute Auto 0.5 X10*3/uL (0.1-1.2); Monocytes Percent Auto 6.9 % (2-11); Neutrophils Absolute Auto 3.8 x10*3/uL (2.0-8.3); Neutrophils Percent Auto 49.4 % (45-73); Platelet Count 323 X10*3/uL (160-400); Red Blood Count 4.95 X10*6/uL (4.60-5.80); Red Cell Distribution Width 12.9 % (11.0-16.0); White Blood Count 7.6 X10*3/uL (4.8-10.8)
--- OUTSIDE RECORDS SUMMARY | 2024-09-13 17:43 | XMS_ITS ---
Author Name Pao RANI, MS. [facility] Address [address] [place] [address] Phone [phone] [facility] Care Team Providers Care Apprentice Jockey Name Role Phone [facility] Unavailable [phone] Unavailable Unavailable Unavailable Reason for Referral Not [...] schizophrenia Active N/A Other problems related to [facility] facilities and other health care Active 2023-08-06 N/A Encounters Encounters Type Facility Date of Service Diagnosis/Co mplaint New patient, 30-44min 1 stable chronic or 2 minor; add modifier 95 for video, modifier 93 for phone [facility], ([place]) 05/21/2023 Obesity, unspecifiedBody mas s index (BMI) 45.0-49.9, adultHallucinations, unspecified New patient, 30-44min 1 stable chronic or 2 minor; add modifier 95 for video, modifier 93 for phone [facility] 05/21/2023 New patient, 30-44min 1 stable chronic or 2 minor; add modifier 95 for video, modifier 93 for phone [facility] 05/21/2023 New patient, 30-44min 1 stable chronic or 2 minor; add modifier 95 for video, modifier 93 for phone [facility] 05/21/2023 No Data Available [facility] 10/05/2023 Other specified counseling Estab. patient 30-39min; chronic exacerbation, 2 stable chronic or 1 acute illness add add modifier 95 for video, (do not use for phone, instead use 65161-96) [facility] ([place] 02/08/2024 Morbid (severe) obesity due to excess caloriesBody mass index (BMI) 45.0-49.9, adultSchizophrenia, unspecifiedOther problems related to medical facilities and other health care Estab. patient 30-39min; chronic exacerbation, 2 stable chronic or 1 acute illness add add modifier 95 for video, (do not use for phone, instead use 83196-61) [facility] [place] 02/[place]/20[place] Estab. patient 30-39min; chronic exacerbation, 2 stable chronic or 1 acute illness add add modifier 95 for video, (do not use for phone, instead use 56923-00) [facility] ([place] 02/08/2024 Estab. patient 30-39min; chronic exacerbation, 2 stable chronic or 1 acute illness add add modifier 95 for video, (do not use for phone, instead use 13552-30) [facility] ([place] 02/08/2024 Estab. patient 30-39min; chronic exacerbation, 2 stable chronic or 1 acute illness add add modifier 95 for video, (do not use for phone, instead use 57086-98) [facility] [place] 02/[place]/2024 Estab. patient 30-39min; chronic exacerbation, 2 stable chronic or 1 acute illness add add modifier 95 for video, (do not use for phone, instead use 56186-89) [facility] [place] 02/[place]/2024 Vital Signs Date of Collection Vitals 2023-05-21 15:01:35 Height - 175.26 cmWe ight - 142.88 kgBody Mass Index (BMI) - 46.52 kg/m2 2024-02-08 07:53:09 Height - 175.26 cmWe ight - 143.34 kgBody Mass Index (BMI) - 46.67 kg/m2BP Diastolic - 64.0 mm[Hg]BP Systolic - 118.0 mm[Hg] Social History Social History Social History Observation Description Effec tive Time Current Smoking Status Never smoker 2024-08-29 6 Sex Male History of Procedures Procedures Service Procedure code Service date Servicing provider Phone# New patient, 30-44min 1 stable chronic or 2 minor; add modifier 95 for video, modifier 93 for phone [id number] 2023-05-21 No Data Available No Data Availa ble Medication List Documented (1159F) 1159F 2023-05-21 No Data Available No Data Shyanne ilable Functional Status Assessed (1170F) 1170F 2023-05-21 No Data Available No Data Avail able BMI obtained (3008F) 3008F 2023-05-21 No Data Availab le No Data Available No Data Available [id number] 2023-10-05 No Data Available No Data Available Estab. patient 30-39min; chronic exacerbation, 2 stable chronic or 1 acute illness add add modifier 95 for video, (do not use for phone, instead use 43338-24) 26317 2024-02-08 No Data Available No Data Availa [...]
--- OUTSIDE RECORDS SUMMARY | 2024-09-13 17:43 | XMS_ITS | Clinical Summary ---
Author Organization 175 [facility] Address [address] [place] [address] Phone Care Team Providers Care Sign Designer Name Role Phone Oneil Morton MD Primary Care Provider [phone] Allergies Active Allergy Reactions Criticality Noted Date Comments Penicillins Unknown 06/05/2017 Medications tirzepatide, weight loss, (Zepbound) 2.5 mg/0.5 mL injectionIndicat ions:Class 3 severe obesity due to excess calories with body mass index (BMI) of 50.0 to 59.9 in adult, unspecified whether serious comorbidity present,Transami nitis Inject 0.5 mL (2.5 mg total) under the skin every 7 (seven) days for 4 doses. 2 mL 08/04/2024 08/27/19 25 Encounters Date Type Department Care Team Description 07/07/2024 11:30 AM EST - 07/07/2024 11:59 PM EST Hospital Encounter [facility] Ultrasound [address] [place] [address] Transaminitis Discharge Disposition: Home or Self Care 06/22/2024 Telephone Bariatric Surgery [address] [phone] Tami Herman MD Prior auth (Prior auth) 06/15/2024 11:15 AM EST Consult Bariatric Surgery [facility] [address] [address] Tami Herman MD Transaminitis (Primary Dx); Class 3 severe obesity due to excess calories with body mass index (BMI) of 50.0 to 59.9 in adult, unspecified whether serious comorbidity present (CMS/HCC V24, CMS/HCC V28) from Last 3 Months Social History Tobacco [...] PM EDT Office Visit Bariatric Surgery - [place] 175 [facility] [address] [place] [phone] Tami Herman MD 175 [facility] [address] [place] [address] Health Maintenance Due Date Last Done Comments [...] age to complete this topic Meningococcal B Vaccine Aged Out No l onger eligible based on patient's age to complete [...] Signed Date: 07/13/2024 14:53 ET Workstation ID: [id number] Transcribed By: Self Edit Transcribed Date: 07/13/2024 [...] gallbladder wall is 2 mm thick. The retail wireless sales representative reports a negative Escamilla's sign. Common bile [...] The gallbladder wall is 2 mmthick. The retail wireless sales representative reports a negative Escamilla's sign. Common bile [...] Signed Date: 07/13/2024 14:53 ET Workstation ID: [id number] Transcribed By: Self Edit Transcribed Date: 07/13/2024 14:46 ET us Tami Herman MD IMG US PROCEDURES Final Resu lt from Last 3 Months Insurance [employer] Care Teams Sign Designer Relationship Specialty Start Date End Date Oneil Morton MD [address] [place] [address] [place] [address] PCP - General Pediatrics 05/12/24
== END 2024-09-13 15:07 | disposition home or self-care (01) ==
LOC: HO.LABR 15:06
PROVIDERS: PCP Pediatrics
DX: Z79.899 Other long term (current) drug therapy (principal)
CPT/HCPCS: 36415; 80159; 85025

== ENCOUNTER 2024-10-06 13:47 | Outpatient (REF) | payer MEDICARE, SELFPAY ==
--- OUTSIDE RECORDS SUMMARY | 2024-10-06 13:53 | XMS_ITS ---
Author Name Pao RANI, MS. [facility] Address [address] [place] [address] Phone [phone] [facility] Care Team Providers Care Steamfitter Apprentice Name Role Phone [facility] Unavailable [phone] Unavailable Unavailable Unavailable Reason for Referral Not [...] schizophrenia Active N/A Other problems related to [facility] facilities and other health care Active 2023-08-06 N/A Encounters Encounters Type Facility Date of Service Diagnosis/Co mplaint New patient, 30-44min 1 stable chronic or 2 minor; add modifier 95 for video, modifier 93 for phone [facility], ([place]) 05/21/2023 Obesity, unspecifiedBody mas s index (BMI) 45.0-49.9, adultHallucinations, unspecified New patient, 30-44min 1 stable chronic or 2 minor; add modifier 95 for video, modifier 93 for phone [facility], ([place]) 05/21/2023 New patient, 30-44min 1 stable chronic or 2 minor; add modifier 95 for video, modifier 93 for phone [facility], ([place] 05/[place]/2023 New patient, 30-44min 1 stable chronic or 2 minor; add modifier 95 for video, modifier 93 for phone [facility], ([place]) 05/21/2023 No Data Available [facility], ([place]) 10/05/2023 Other specified counseling Estab. patient 30-39min; chronic exacerbation, 2 stable chronic or 1 acute illness add add modifier 95 for video, (do not use for phone, instead use [id number]) [facility] ([place]) 02/08/2024 Morbid (severe) obesity due to excess caloriesBody mass index (BMI) 45.0-49.9, adultSchizophrenia, unspecifiedOther problems related to medical facilities and other health care Estab. patient 30-39min; chronic exacerbation, 2 stable chronic or 1 acute illness add add modifier 95 for video, (do not use for phone, instead use [id number]) [facility] ([place] 02/08/20[place] Estab. patient 30-39min; chronic exacerbation, 2 stable chronic or 1 acute illness add add modifier 95 for video, (do not use for phone, instead use 31076-75) [facility] ([place] 02/08/2024 Estab. patient 30-39min; chronic exacerbation, 2 stable chronic or 1 acute illness add add modifier 95 for video, (do not use for phone, instead use 00533-99) [facility] ([place] 02/08/2024 Estab. patient 30-39min; chronic exacerbation, 2 stable chronic or 1 acute illness add add modifier 95 for video, (do not use for phone, instead use 94264-60) [facility] ([place] 02/08/2024 Estab. patient 30-39min; chronic exacerbation, 2 stable chronic or 1 acute illness add add modifier 95 for video, (do not use for phone, instead use [id number]) [facility] ([place]) 02/08/2024 Vital Signs Date of Collection Vitals 2023-05-21 15:01:35 Height - 175.26 cmWe ight - 142.88 kgBody Mass Index (BMI) - 46.52 kg/m2 2024-02-08 07:53:09 Height - 175.26 cmWe ight - 143.34 kgBody Mass Index (BMI) - 46.67 kg/m2BP Diastolic - 64.0 mm[Hg]BP Systolic - 118.0 mm[Hg] Social History Social History Social History Observation Description Effec tive Time Current Smoking Status Never smoker 8 Sex Male History of Procedures Procedures Service Procedure code Service date Servicing provider Phone# New patient, 30-44min 1 stable chronic or 2 minor; add modifier 95 for video, modifier 93 for phone [id number] 2023-05-21 No Data Available No Data Availa ble Medication List Documented (1159F) 1159F 2023-05-21 No Data Available No Data Shyanne ilable Functional Status Assessed (1170F) 1170F 2023-05-21 No Data Available No Data Avail able BMI obtained (3008F) 3008F 2023-05-21 No Data Availab le No Data Available No Data Available [id number] 2023-10-05 No Data Available No Data Available Estab. patient 30-39min; chronic exacerbation, 2 stable chronic or 1 acute illness add add modifier 95 for video, (do not use for phone, instead use [id number]) [id number] 2024-02-08 No Data Available No Data Availa [...]
--- OUTSIDE RECORDS SUMMARY | 2024-10-06 13:53 | XMS_ITS | Clinical Summary ---
Author Organization 175 [facility] Address [address] [place] [address] Phone Care Team Providers Care Baccarat Manager Name Role Phone Oneil Morton MD Primary Care Provider [phone] Allergies Active Allergy Reactions Criticality Noted Date Comments Penicillins Unknown 06/05/2017 Social History Tobacco Use Types Packs/Day Years [...] PM EDT Office Visit Bariatric Surgery - [place] [address] [address] Tami Herman MD [address] [address] Health Maintenance Due Date Last Done Comments [...] topic Insurance [employer] MED[employer]ARE Care Teams Baccarat Manager Relationship Specialty Start Date End Date Oneil Morton MD [address] [place] [address] PCP - General Pediatrics 05/12/24
[2024-10-06 14:05] LABS: MANUAL DIFF FLAG NO
[2024-10-06 14:33] LABS: Basophils Percent Auto 0.3 % (0-2); Eosinophils Absolute Auto 0.4 X10*3/uL (0.0-0.4); Eosinophils Percent Auto 5.4 % (0-4); Hematocrit 44.4 % (42.0-52.0); Hemoglobin 15.1 g/dl (14.0-18.0); Imm Gran Abs Auto 0.03 X10*3/uL (0.00-0.03); Imm Gran Pct Auto 0.4 % (0.0-0.4); Lymphocytes Percent Auto 38.7 % (20-40); Mean Corpuscular Volume 88.3 fL (80.0-98.0); Mean Platelet Volume 9.7 fL (9.4-12.4); Monocytes Absolute Auto 0.6 X10*3/uL (0.1-1.2); Monocytes Percent Auto 7.2 % (2-11); Neutrophils Absolute Auto 3.7 x10*3/uL (2.0-8.3); Platelet Count 326 X10*3/uL (160-400); Red Blood Count 5.03 X10*6/uL (4.60-5.80); White Blood Count 7.6 X10*3/uL (4.8-10.8)
== END 2024-10-06 13:48 | disposition home or self-care (01) ==
LOC: HO.LAB 13:47
DX: Z79.899 Other long term (current) drug therapy (principal)
CPT/HCPCS: 36415; 85025

== ENCOUNTER 2024-11-28 13:37 | Outpatient (REF) | payer MEDICARE, SELFPAY ==
[2024-11-28 13:53] LABS: MANUAL DIFF FLAG NO
--- OUTSIDE RECORDS SUMMARY | 2024-11-28 14:48 | XMS_ITS ---
Author Name Pao RANI, MS. [facility] Address [address] [place] [address] Phone [phone] [facility] Care Team Providers Care Sales And Service Representative Name Role Phone [facility] Unavailable [phone] Unavailable Unavailable Unavailable Reason for Referral Not Available Allergies, adverse reactions, alerts Allergen Type Reaction Severity Status Onset Date Penicillin Allergy to substance (disorder) hives Unknown Active N/A History of medication use Medication Class Instructions Start Date End Date OLANZapine 20 mg Tab 1 tablet orally daily at night 22-05-22 No Data Available Problem List Problem Status Onset Date Resolved Date Synopsis morbid (severe) obesity d/t excess caloriesBody mass index 45.0-49.9 Active 2023-05-21 N/A bmi 46.5enc ourage healthy food choicesexercise as tolerated Hallucination with schizophrenia Active 2023-05-21 N/A takes olazepine and sees psychiatry q 2 weeks schizophrenia with hallucinations Other problems related to medical facilities and other health care Active 2023-08-06 N/A Please call CB ifChange in mental state, unusual agitation,worsening hallucinations. Encounters Encounters Type Facility Date of Service Diagnosis/Co mplaint New patient, 30-44min 1 stable chronic or 2 minor; add modifier 95 for video, modifier 93 for [facility] [employer] [facility], ([place]) 05/21/2023 Obesity, unspecifiedBody mas s index (BMI) 45.0-49.9, adultHallucinations, unspecified New patient, 30-44min 1 stable chronic or 2 minor; add modifier 95 for video, modifier 93 for [facility] [employer] [facility], ([place]) 05/21/2023 New patient, 30-44min 1 stable chronic or 2 minor; add modifier 95 for video, modifier 93 for [facility] [employer] [facility], ([place]) 05/21/2023 New patient, 30-44min 1 stable chronic or 2 minor; add modifier 95 for video, modifier 93 for phone [facility] ([place]) 05/21/2023 No Data Available [facility] ([place]) 10/05/2023 Other specified counseling Estab. patient 30-39min; chronic exacerbation, 2 stable chronic or 1 acute illness add add modifier 95 for video, (do not use for phone, instead use [id number]) [facility], ([place]) 02/08/2024 Morbid (severe) obesity due to excess caloriesBody mass index (BMI) 45.0-49.9, adultSchizophrenia, unspecifiedOther problems related to medical facilities and other health care Estab. patient 30-39min; chronic exacerbation, 2 stable chronic or 1 acute illness add add modifier 95 for video, (do not use for phone, instead use 48564-02) [facility] ([place]) 02/08/2024 Estab. patient 30-39min; chronic exacerbation, 2 stable chronic or 1 acute illness add add modifier 95 for video, (do not use for phone, instead use 69595-18) [facility] ([place]) 02/08/2024 Estab. patient 30-39min; chronic exacerbation, 2 stable chronic or 1 acute illness add add modifier 95 for video, (do not use for phone, instead use 63104-73) [facility] ([place]) 02/08/2024 Estab. patient 30-39min; chronic exacerbation, 2 stable chronic or 1 acute illness add add modifier 95 for video, (do not use for phone, instead use 05246-85) [facility] ([place]) 02/08/2024 Estab. patient 30-39min; chronic exacerbation, 2 stable chronic or 1 acute illness add add modifier 95 for video, (do not use for phone, instead use 34438-22) [facility] ([place]) 02/08/2024 Vital Signs Date of Collection Vitals 2023-05-21 15:01:35 Height - 175.26 cmWe ight - 142.88 kgBody Mass Index (BMI) - 46.52 kg/m2 2024-02-08 07:53:09 Height - 175.26 cmWe ight - 143.34 kgBody Mass Index (BMI) - 46.67 kg/m2BP Diastolic - 64.0 mm[Hg]BP Systolic - 118.0 mm[Hg] Social History Social History Social History Observation Description Effec tive Time Current Smoking Status Never smoker 1 Sex Male History of Procedures Procedures Service Procedure code Service date Servicing provider Phone# New patient, 30-44min 1 stable chronic or 2 minor; add modifier 95 for video, modifier 93 for phone [id number] 2023-05-21 No Data Available No Data Availa ble Medication List Documented (1159F) 1159F 2023-05-21 No Data Available No Data Shyanne ilable Functional Status Assessed (1170F) 1170F 2023-05-21 No Data Available No Data Avail able BMI obtained (3008F) 3008F 2023-05-21 No Data Availab le No Data Available No Data Available [id number] 2023-10-05 No Data Available No Data Available Estab. patient 30-39min; chronic exacerbation, 2 stable chronic or 1 acute illness add add modifier 95 for video, (do not use for phone, instead use [id number]) [id number] 2024-02-08 No Data Available No Data Availa [...] weeks Hx schizophrenia 2023-10-05 14:49:41 Phone (patient, pare nt, or guardian); 5-10 minutes of medical [...]
--- OUTSIDE RECORDS SUMMARY | 2024-11-28 14:49 | XMS_ITS | Clinical Summary ---
Author Organization 175 [facility] Address [address] [place] [address] Phone Care Team Providers Care Social Welfare Clerk Name Role Phone Oneil Morton MD Primary Care Provider [phone] Allergies Active Allergy Reactions Criticality Noted Date [...] 88 06/15/2024 10:58 AM EST Temperature 36.2 C (97.2 F) 06/15/2024 10:58 AM EST Respiratory Rate - - Oxygen Saturation - - Inhaled Oxygen Concentration - - Weight 171 kg (377 lb) 06/15/2024 10:58 AM EST Height 175.3 cm (5' 9 ) 06/15/2024 10:58 AM EST Body Mass Index 55.67 06/15/2024 10:58 AM EST Plan of Treatment Health Maintenance Due Date Last Done Comments COVID-19 Vaccine ( season) 2024 07/02/2021, 09/21/2020, 08/31/2020 Depression Screening 03/22/2024 HIV Screening 03/22/2024 Hepatitis C Screening 03/22/2024 Medicare Annual Wellness Visit 03/22/2024 Social Influencers of Health Screening 03/22/2024 Influenza Vaccine (#1) 2025 , 05/06/2023, 02/23/2023, Additional history exists Cholesterol Screening (Lipid Panel) 03/22/2029 03/22/2024 DTaP,Tdap,and [...] 11/01/2012, HPV Vaccines Completed 05/05/2013, 09/2012, 11/01/2012 Hepatitis A Vaccines Aged Out No long [...] complete this topic Insurance [employer] MEDICARE MEDICAID - [place] Care Teams Social Welfare Clerk Relationship Specialty Start Date End Date Oneil Morton MD [address] [place] [address] PCP - General Pediatrics 05/12/24
[2024-11-28 15:02] LABS: Hematocrit 41.8 % (42.0-52.0); Hemoglobin 14.3 g/dl (14.0-18.0); Imm Gran Abs Auto 0.04 X10*3/uL (0.00-0.03); Imm Gran Pct Auto 0.5 % (0.0-0.4); Lymphocytes Absolute Auto 3.1 X10*3/uL (1.2-4.9); Mean Corpuscular HGB Conc 34.2 g/dl (31.0-36.0); Mean Corpuscular Hemoglobin 30.0 pg (27.0-33.0); Mean Corpuscular Volume 87.6 fL (80.0-98.0); NRBC Abs Auto 0.000 X10*3/uL (0.0-0.012); NRBC Pct Auto 0.0 /100WBC (0.0-0.2); Platelet Count 324 X10*3/uL (160-400); Red Blood Count 4.77 X10*6/uL (4.60-5.80); White Blood Count 8.0 X10*3/uL (4.8-10.8)
== END 2024-11-28 13:38 | disposition home or self-care (01) ==
LOC: HO.LABR 13:37
PROVIDERS: PCP Pediatrics
DX: Z79.899 Other long term (current) drug therapy (principal)
CPT/HCPCS: 36415; 85025